=== PATIENT | male | born 1990 | race Caucasian/White ===

== ENCOUNTER 2017-10-01 01:57 | Emergency (ER) | payer MEDICAID, SELFPAY ==
[2017-10-01 01:58] VITALS: BP 151/93; PULSE 111; RESP 16; O2SAT 100; BMI 36.6
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
[2017-10-01] MEDS: Haloperidol 5 MG Tablet PO (02:24)
[2017-10-01] MEDS: LORazepam 1 MG Tablet 2 MG PO (02:24)
[2017-10-01 02:51] LABS: Absolute Lymphocyte Count 1.53 X10^3/ul (0.83-4.51); Basophil# 0.02 X10^3/uL; Basophil% 0.2 % (0-1); Eosinophils% 1.2 % (0-5); Hematocrit 43.8 % (40-54); Hemoglobin 14.4 g/dl (13.0-16.5); Lymphocyte # 1.53 X10^3/ul (4.0); Lymphocyte % 18.3 % (19-41); Mean Corp Hgb Conc 32.9 g/gl (32-36); Mean Corpuscular Hgb 28.9 pg (27.0-32.0); Mean Corpuscular Volume 87.8 fL (80-94); Mean Platelet Vol. 10.2 fl (6.2-12.0); Monocyte# 0.73 X10^3/uL; Monocyte% 8.7 % (0-10); Neutrophil # 5.98 X10^3/uL (2.7-7.7); Neutrophil % 71.5 % (47-70); Platelet Count 244 K/mm3 (150-450); RBC Distribution Width SD 41.6 fl (35.1-43.9); Red Blood Count 4.99 M/mm3 (4.6-6.2); White Blood Count 8.4 K/mm3 (4.4-11.0)
[2017-10-01 02:52] LABS: Differential Indicated SCAN CRITERIA MET; POSITIVE COUNT NO; POSITIVE DIFFERENTIAL NO; POSITIVE MORPHOLOGY YES
[2017-10-01 03:05] LABS: Amphetamine Urine VISTA NEGATIVE (<1000 ng/mL); Barbiturate Urine VISTA NEGATIVE (< 200 ng/mL); Benzodiazepine Urine VISTA NEGATIVE (< 200 ng/mL); Cocaine Urine VISTA NEGATIVE (< 300 ng/mL); Ecstacy Urine VISTA NEGATIVE (< 500 ng/mL); Methadone Urine VISTA NEGATIVE (< 300 ng/mL); PCP Urine VISTA NEGATIVE (< 25 ng/mL); THC Urine VISTA POSITIVE (< 50 ng/mL); Vista UDS pH Range 6
[2017-10-01 03:06] LABS: Anion Gap 13 (5-15); BUN 5 mg/dL (7-18); Calcium,Total 8.9 mg/dL (8.5-10.1); Chloride 103 mmol/L (98-107); Creatinine, Serum 0.83 mg/dL (0.70-1.30); EST Glomerular Filtration Rate 118 mL/min (>60); Est Glom Filt Rate - Afr Amer 142 mL/min (>60); Estimated Creatinine Clearance 138.04 ml/min; Glucose 92 mg/dL (74-106); Potassium 2.6 mmol/L (3.5-5.1); Sodium Level 140 mmol/L (136-145)
--- NOTE | 2017-10-01 03:06 | ED.RN ---
LAB CALLS WITH CRITICAL RESULT, POTASSIUM 2.6, DR. TINOCO MADE AWARE.
--- NOTE | 2017-10-01 03:07 | EKG12_ITS ---
Test Reason : Blood Pressure : / mmHG Vent. Rate : 101 BPM Atrial Rate : 101 BPM P-R Int : 154 ms QRS Dur : 106 ms QT Int : 368 ms P-R-T Axes : 036 003 036 degrees QTc Int : 477 ms Sinus tachycardia Otherwise normal ECG Confirmed by BERTIN GUZMÁN, ANN ([id number]), society editor RADHA ARCHER ([id number]) on 10/07/2017 2:53:32 PM Referred By: DWAINE Confirmed By:ANN DENTON MD
[2017-10-01 03:13] LABS: Alcohol, Blood (Medical)-Serum < 3.0 mg/dL
--- NOTE | 2017-10-01 04:28 | ED.RN ---
PT UNABLE TO TAKE POTASSIUM AT THIS TIME. PT IS LETHARGIC AND WILL NOT DRINK. PER DR TINOCO, HOLD UNTIL PT IS AWAKE.
[2017-10-01 04:29] VITALS: RESP 16
[2017-10-01 05:00] VITALS: RESP 16
[2017-10-01 06:00] VITALS: RESP 18
[2017-10-01 06:55] VITALS: PULSE 110; RESP 16; TEMP 36.4; O2SAT 98
[2017-10-01 07:15] VITALS: BP 151/90; PULSE 110; RESP 16; TEMP 36.4; O2SAT 98
== END 2017-10-01 09:49 ==
PROVIDERS: Emergency Provider Emergency Medicine; Family Provider Internal Medicine; PCP Internal Medicine
DX: F20.0 Paranoid schizophrenia (principal); E87.6 Hypokalemia
CPT/HCPCS: 80048; 80307; 80320; 85025; 93005; 99285; G0480

== ENCOUNTER 2018-11-04 13:39 | Emergency (ER) | payer MEDICAID, SELFPAY ==
[2018-11-04 13:42] VITALS: BP 141/93; PULSE 120; RESP 18; TEMP 36.8; O2SAT 98; BMI 31.3
--- NOTE | 2018-11-04 14:03 | ED.RN ---
socks, head phones, coat, jeans, boots, gold necklace (currently still on pt), sweat shirt, sunglasses
--- NOTE | 2018-11-04 14:18 | ED.RN ---
Pt pink slipped by [employer]. Much encouragement required to get pt to change out of clothing. He was cooperative but resistant. Was given three gowns per request. Pt does have his headphones with him. States he is listening to calming music. He was permitted to keep headphones with the understanding if he does not remain cooperative they will be removed.
--- NOTE | 2018-11-04 14:18 | CM.ED ---
SOCIAL WORK NOTE DISCUSSED CASE WITH PHYSICIAN WHO REPORTS CRISIS TO EVAL ONCE PT IS MEDICALLY CLEARED. FRITZ MURRAY, UNDERWRITING SUPPORT MANAGER, SQL SSRS DEVELOPER.
--- NOTE | 2018-11-04 14:24 | ED.RN ---
mother at bedside.
[2018-11-04] MEDS: Naproxen 500 MG Tablet PO (14:29)
[2018-11-04] MEDS: Gabapentin 300 MG Capsule PO (14:30)
--- NOTE | 2018-11-04 14:56 | ED.RN ---
PT HAS BEEN COOPERATIVE WITH PROVIDING AN URINE SAMPLE AND BLOOD DRAW.
[2018-11-04 14:59] LABS: Absolute Lymphocyte Count 1.11 X10^3/ul (0.83-4.51); Absolute Neutrophil Count 11.3 X10^3/uL (2.0-7.7); Basophil# 0.02 X10^3/uL; Basophil% 0.2 % (0-1); Eosinophil# 0.03 X10^3/uL; Eosinophils% 0.2 % (0-5); Hematocrit 45.1 % (40-54); Hemoglobin 14.9 g/dl (13.0-16.5); Lymphocyte # 1.11 X10^3/ul (4.0); Lymphocyte % 8.5 % (19-41); Mean Corpuscular Volume 93.8 fL (80-94); Mean Platelet Vol. 9.8 fl (6.2-12.0); Monocyte% 4.6 % (0-10); Neutrophil # 11.27 X10^3/uL (2.7-7.7); Neutrophil % 86.3 % (47-70); Platelet Count 267 K/mm3 (150-450); RBC Distribution Width CV 12.8 % (11.6-14.6); RBC Distribution Width SD 43.8 fl (35.1-43.9); Red Blood Count 4.81 M/mm3 (4.6-6.2); White Blood Count 13.1 K/mm3 (4.4-11.0)
[2018-11-04 15:01] LABS: POSITIVE COUNT NO; POSITIVE DIFFERENTIAL NO; POSITIVE MORPHOLOGY NO
[2018-11-04 15:08] LABS: Amphetamine Urine VISTA NEGATIVE (<1000 ng/mL); Barbiturate Urine VISTA NEGATIVE (< 200 ng/mL); Benzodiazepine Urine VISTA NEGATIVE (< 200 ng/mL); Cocaine Urine VISTA NEGATIVE (< 300 ng/mL); Ecstacy Urine VISTA NEGATIVE (< 500 ng/mL); Methadone Urine VISTA NEGATIVE (< 300 ng/mL); PCP Urine VISTA NEGATIVE (< 25 ng/mL); THC Urine VISTA POSITIVE (< 50 ng/mL); Vista UDS pH Range 5
[2018-11-04 15:14] LABS: ALB/GLOB Ratio 1.7 RATIO (0.9-2.4); AST(SGOT) 18 U/L (15-37); Alanine Aminotransfer ALT/SGPT 23 U/L (16-61); Albumin, Serum 4.5 g/dL (3.2-5.0); Alkaline Phosphatase 76 U/L (45-117); Anion Gap 7 (5-15); BUN 10 mg/dL (7-18); BUN/Creat Ratio 7.9 RATIO (10-20); Calcium,Total 8.7 mg/dL (8.5-10.1); Chloride 108 mmol/L (98-107); Creatinine, Serum 1.27 mg/dL (0.70-1.30); EST Glomerular Filtration Rate 72 mL/min (>60); Est Glom Filt Rate - Afr Amer 87 mL/min (>60); Estimated Creatinine Clearance 95.05 ml/min; Globulin 2.7 g/dL (2.2-4.2); Glucose 78 mg/dL (74-106); Potassium 3.5 mmol/L (3.5-5.1); Protein, Total 7.2 g/dL (6.4-8.2); Sodium Level 140 mmol/L (136-145)
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
--- NOTE | 2018-11-04 15:30 | NURSING ---
CALLED CRISIS, LEFT MESSAGE WITH SOMEONE TO LET THEM KNOW
[2018-11-04 15:48] VITALS: BP 137/86; PULSE 84; RESP 14; O2SAT 96
--- NOTE | 2018-11-04 16:51 | ED.RN ---
called dietary for meal tray
--- NOTE | 2018-11-04 16:51 | NURSING ---
ODILON, CRISIS, CALLED. SHE'S ON HER WAY
--- NOTE | 2018-11-04 17:00 | NURSING ---
ODILON, CRISIS, HERE
--- NOTE | 2018-11-04 17:07 | ED.RN ---
crisis at bedside with pt.
[2018-11-04 18:05] VITALS: PULSE 81; RESP 14
--- NOTE | 2018-11-04 18:34 | ED.RN ---
mother is leaving, left number for crisis.
--- NOTE | 2018-11-04 18:36 | ED.RN ---
MOTHER OF THIS PT CLARISA DUCKWORTH GAVE ME HER CONTACT INFORMATION AND REQUESTED WE CALL HER WHEN CRISIS HAS AN ACCEPTING HOSPITAL. [phone].
[2018-11-04 19:39] VITALS: BP 137/82; PULSE 82; RESP 18; O2SAT 96
[2018-11-04 20:26] VITALS: BP 128/84; PULSE 84; RESP 14; O2SAT 98
--- NOTE | 2018-11-04 21:01 | ED.RN ---
Per Pooja, Mom took all clothing home. PT has headphones and glasses.
== END 2018-11-04 21:00 ==
LOC: ED 14:23
PROVIDERS: Emergency Provider Emergency Medicine; Family Provider Internal Medicine; PCP Internal Medicine
DX: F20.0 Paranoid schizophrenia (principal)
CPT/HCPCS: 36415; 80053; 80307; 80320; 85025; 99284; G0480

== ENCOUNTER 2018-12-04 12:28 | Emergency (ER) | payer MEDICAID, SELFPAY ==
[2018-12-04] VITALS (8 sets, daily range): BP systolic 104–133; BP diastolic 82–87; PULSE 96–110; RESP 14–18; TEMP 36.8–37.3; O2SAT 95–98; BMI 27.1
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
--- NOTE | 2018-12-04 13:02 | EKG12_ITS ---
Test Reason : MENTAL HEALTH Blood Pressure : / mmHG Vent. Rate : 081 BPM Atrial Rate : 081 BPM P-R Int : 154 ms QRS Dur : 110 ms QT Int : 374 ms P-R-T Axes : 064 007 042 degrees QTc Int : 434 ms Normal sinus rhythm with sinus arrhythmia Normal ECG Confirmed by BERTIN GUZMÁN, ANN ([id number]), editorial director HETAL BANUELOS ([id number]) on 12/08/2018 1:22:08 PM Referred By: KELLE Confirmed By:ANN DENTON MD
--- NOTE | 2018-12-04 13:05 | CM.ED ---
SOCIAL WORK CASE DISCUSSED WITH DR. NINA. PATIENT NOT TALKING TO STAFF. THIS WORKER TO ATTEMPT SOCIAL SERVICE ASSESSMENT. FRITZ MURRAY, FUNERAL LOCATION MANAGER, PRINCIPAL STATISTICAL SCIENTIST.
--- NOTE | 2018-12-04 13:06 | PCA ---
GOT [facility]LD EKG
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
[2018-12-04 13:53] LABS: Absolute Lymphocyte Count 1.75 X10^3/ul (0.83-4.51); Absolute Neutrophil Count 4.9 X10^3/uL (2.0-7.7); Anion Gap 7 (5-15); BUN 7 mg/dL (7-18); BUN/Creat Ratio 7.2 RATIO (10-20); Basophil# 0.03 X10^3/uL; Basophil% 0.4 % (0-1); Chloride 105 mmol/L (98-107); Creatinine, Serum 0.97 mg/dL (0.70-1.30); EST Glomerular Filtration Rate 98 mL/min (>60); Eosinophils% 2.7 % (0-5); Est Glom Filt Rate - Afr Amer 118 mL/min (>60); Estimated Creatinine Clearance 124.44 ml/min; Glucose 89 mg/dL (74-106); Hematocrit 46.3 % (40-54); Hemoglobin 15.6 g/dl (13.0-16.5); Lymphocyte # 1.75 X10^3/ul (4.0); Lymphocyte % 23.5 % (19-41); Mean Corp Hgb Conc 33.7 g/gl (32-36); Mean Corpuscular Volume 91.9 fL (80-94); Mean Platelet Vol. 10.9 fl (6.2-12.0); Monocyte# 0.56 X10^3/uL; Monocyte% 7.5 % (0-10); Neutrophil # 4.89 X10^3/uL (2.7-7.7); Neutrophil % 65.8 % (47-70); Platelet Count 247 K/mm3 (150-450); Potassium 3.2 mmol/L (3.5-5.1); RBC Distribution Width CV 12.4 % (11.6-14.6); RBC Distribution Width SD 41.5 fl (35.1-43.9); Red Blood Count 5.04 M/mm3 (4.6-6.2); Sodium Level 141 mmol/L (136-145); White Blood Count 7.4 K/mm3 (4.4-11.0)
[2018-12-04 13:56] LABS: POSITIVE COUNT NO; POSITIVE DIFFERENTIAL NO; POSITIVE MORPHOLOGY NO
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
[2018-12-04 14:38] LABS: Red Blood Cells-Urine 0 SEEN /hpf (0-5)
[2018-12-04 14:41] LABS: Color, Urine Yellow (Yellow); Glucose, Dipstick Normal (Normal); Leukocyte Esterase-Dipstick 25 /ul (Negative); Nitrite-Dipstick Negative (Negative); Occult Blood-Urine Negative /ul (Negative); Protein-Dipstick 30 mg/dl (Negative); Specific Gravity, Urine 1.025 (1.002-1.030); Urine Clarity Clear (Clear); Urine Urobilinogen 1 mg/dl (Normal)
[2018-12-04 14:46] LABS: Ketone-Dipstick 150 mg/dl (Negative); Urine Bilirubin Dipstick 1 mg/dL (Negative)
[2018-12-04 14:49] LABS: Alcohol, Blood (Medical)-Serum < 3.0 mg/dL
[2018-12-04 14:50] LABS: White Blood Cells 0-5 SEEN /hpf (0-5)
[2018-12-04 14:51] LABS: Bacteria 1+ /hpf (None Seen); Mucous, Urine 3+ /hpf (<or=2+); Squamous Epithelial Cells - UA 0-5 SEEN /hpf (0-5)
[2018-12-04 14:57] LABS: Amphetamine Urine VISTA NEGATIVE (<1000 ng/mL); Barbiturate Urine VISTA NEGATIVE (< 200 ng/mL); Benzodiazepine Urine VISTA NEGATIVE (< 200 ng/mL); Cocaine Urine VISTA NEGATIVE (< 300 ng/mL); Ecstacy Urine VISTA NEGATIVE (< 500 ng/mL); Methadone Urine VISTA NEGATIVE (< 300 ng/mL); PCP Urine VISTA NEGATIVE (< 25 ng/mL); THC Urine VISTA POSITIVE (< 50 ng/mL); Vista UDS pH Range 6
--- NOTE | 2018-12-04 15:49 | ED.RN ---
road cleaner informed pt's mother that crisis would not be here to talk with pt until 5pm. Mother requested to go talk with her son. This RN asked pt if he would mind if his mother could come talk with him. Pt replies, oh no. Pt's mother made yung.
--- NOTE | 2018-12-04 17:07 | CM.ED ---
SOCIAL WORK RECEIVED CALL FROM GABRIEL WITH CRISIS. PER GHAZALA RIOS TO BE OVER TO ASSESS PATIENT SHORTLY. WILL UPDATE STAFF. FRITZ MURRAY, LAY OUT INSPECTOR, STABBER.
--- NOTE | 2018-12-04 19:24 | CM.ED ---
SOCIAL WORK GHAZALA FROM CRISIS HERE AND EVALUATED PATIENT AND DISCUSSED WITH PATIENT'S MOTHER. PER GHAZALA, REFERRAL TO BE MADE TO [facility] FOR INPATIENT PSYCH NEED. UPDATED NURSING STAFF. WILL FOLLOW AND ASSIST NEEDED. FRITZ MURRAY, NATIONAL ACCOUNTS RECRUITER, RISK MANAGER.
--- NOTE | 2018-12-04 22:19 | ED.RN ---
PT ACCEPTED AT [facility], ATTEMPTED TO GET TRANSPORT, CALLED SEVERAL COMPANIES, IWONA LERMA GAVE THE EARLIEST ETA OF 07
[2018-12-05] VITALS (7 sets, daily range): BP systolic 120–127; BP diastolic 60–85; PULSE 75–78; RESP 16–18; O2SAT 97
--- NOTE | 2018-12-05 06:45 | ED.RN ---
PT HAS BEEN AWAKE ALL NIGHT.HAVE OFFERRED THE PT FOOD AND DRINKS AND HE HAS REFUSED.PT POLITE.
== END 2018-12-05 08:08 ==
PROVIDERS: Emergency Provider Emergency Medicine; Family Provider Internal Medicine; PCP Internal Medicine
DX: F20.9 Schizophrenia, unspecified (principal); F12.90 Cannabis use, unspecified, uncomplicated
CPT/HCPCS: 80048; 80307; 80320; 81001; 85025; 93005; 99283; G0480

== ENCOUNTER → 2019-05-20 14:53 | Outpatient (CLI) | payer MEDICAID, SELFPAY ==
[2018-12-04 12:31] VITALS: BMI 27.1
--- NOTE | 2019-05-20 14:56 | CT_ITS ---
STUDY: CT ABDOMEN AND PELVIS WITH CONTRAST REASON FOR EXAM: Male, 28 years old. Diarrhea and cramping RADIATION DOSAGE (If Supplied By Facility): DLP = ( 1369.08 ) mGycm TECHNIQUE: Transaxial images were obtained from the dome of the diaphragm to the symphysis pubis with oral contrast. 100CC ml of Readi-CAT and amp; 100mL Isovue-300 contrast was administered. Sagittal and coronal images were reconstructed. Individualized dose optimization techniques were used for this CT. COMPARISON: None. FINDINGS: The visualized lung bases are clear. The visualized portions of the heart and pericardium are within normal limits. There are no calcified gallstones present. The liver is within normal limits. There are no suspicious hepatic lesions. The spleen is normal in size. The pancreas is within normal limits. The adrenal glands are within normal limits. There are no obstructing renal stones. There is no hydronephrosis. There are no focal renal lesions. Normal visualized stomach. There is no bowel obstruction or inflammation. The appendix is not visualized, but there are no findings to suggest acute appendicitis. The aorta is normal in caliber. There is no abdominal or pelvic free air, free fluid, fluid collection or lymphadenopathy. There are no destructive osseous lesions. CT/Abdomen/Pelvis WITH Contrast IMPRESSION: No acute abdominal or pelvic pathology. Electronically Signed: James Olmedo, at 16:07 EDT Tel , Service support ,
== END ==
PROVIDERS: Family Provider Family Medicine; PCP Family Medicine; Referring Provider Family Medicine; Visit Provider Family Medicine
DX: R19.7 Diarrhea, unspecified (principal)
CPT/HCPCS: 74177; Q9967

== ENCOUNTER → 2020-03-08 09:30 | Outpatient (CLI) | payer MEDICARE, MEDICAID, SELFPAY ==
[2018-12-04 12:31] VITALS: BMI 27.1
[2020-03-08 12:00] LABS: Erythrocyte Sedimentation Rate 12 mm/hr (0-15)
[2020-03-08 12:10] LABS: Absolute Lymphocyte Count 1.93 X10^3/uL (0.83-4.51); Absolute Neutrophil Count 5.6 X10^3/uL (2.0-7.7); Basophil# 0.03 X10^3/uL; Basophil% 0.4 % (0-1); Eosinophil# 0.17 X10^3/uL; Eosinophils% 2.1 % (0-5); Hematocrit 45.9 % (40-54); Hemoglobin 14.6 g/dL (13.0-16.5); Lymphocyte # 1.93 X10^3/ul (4.0); Lymphocyte % 23.4 % (19-41); Mean Corp Hgb Conc 31.8 g/dL (32-36); Mean Corpuscular Hgb 29.7 pg (27.0-32.0); Mean Corpuscular Volume 93.3 fL (80-94); Mean Platelet Vol. 10.1 fl (6.2-12.0); Monocyte# 0.56 X10^3/uL; Monocyte% 6.8 % (0-10); NRBC Flagged by Analyzer 0 % (0-5); Neutrophil # 5.55 X10^3/uL (2.7-7.7); Neutrophil % 67.1 % (47-70); Platelet Count 299 K/mm3 (150-450); RBC Distribution Width CV 12.7 % (11.6-14.6); RBC Distribution Width SD 43.4 fl (35.1-43.9); Red Blood Count 4.92 M/mm3 (4.6-6.2); White Blood Count 8.3 K/mm3 (4.4-11.0)
[2020-03-08 12:12] LABS: Vitamin B12 425 pg/mL (211-911)
[2020-03-08 12:31] LABS: AST(SGOT) 13 U/L (15-37); Alanine Aminotransfer ALT/SGPT 29 U/L (16-61); Albumin, Serum 3.6 g/dL (3.2-5.0); Alkaline Phosphatase 107 U/L (45-117); Anion Gap 5 (5-15); BUN 8 mg/dL (7-18); BUN/Creat Ratio 8.5 RATIO (10-20); Calcium,Total 9.2 mg/dL (8.5-10.1); Chloride 106 mmol/L (98-107); Creatinine, Serum 0.94 mg/dL (0.70-1.30); EST Glomerular Filtration Rate 100 mL/min (>60); Est Glom Filt Rate - Afr Amer 121 mL/min (>60); Ferritin 58 ng/mL (26-388); GGTP 24 U/L (15-85); Globulin 3.7 g/dL (2.2-4.2); Glucose 105 mg/dL (74-106); Lipase 75 U/L (73-393); Protein, Total 7.3 g/dL (6.4-8.2); Sodium Level 140 mmol/L (136-145); Thyroid Stim Hormone (TSH) 1.72 uIU/mL (0.358-3.74)
== END ==
PROVIDERS: PCP Family Medicine; Referring Provider Family Medicine; Visit Provider Family Medicine
DX: R10.13 Epigastric pain (principal); R53.83 Other fatigue
CPT/HCPCS: 36415; 80053; 82607; 82728; 82746; 82977; 83690; 84443; 85025; 85652

== ENCOUNTER → 2021-12-17 | Outpatient (CLI) | payer MEDICARE, MEDICAID, SELFPAY | END | disposition home or self-care (01) | LOC: MFPLAB 13:50 | PROVIDERS: PCP Family Medicine; Visit Provider Family Medicine | DX: J32.9 Chronic sinusitis, unspecified (principal) | CPT/HCPCS: 87070; 87077; 87186; 87205 ==

== ENCOUNTER → 2021-12-27 | Outpatient (CLI) | payer MEDICARE, MEDICAID, SELFPAY | END | disposition home or self-care (01) | PROVIDERS: PCP Family Medicine; Referring Provider Family Medicine; Visit Provider Family Medicine | DX: R19.7 Diarrhea, unspecified (principal) | CPT/HCPCS: 87177; 87209; 87506 ==

== ENCOUNTER 2021-12-31 01:53 | Emergency (ER) | payer MEDICARE, MEDICAID, SELFPAY ==
[2021-12-31 01:56] VITALS: BP 132/104; PULSE 119; RESP 26; TEMP 37.2; O2SAT 98; BMI 34.0
--- NOTE | 2021-12-31 02:21 | EX.ED.DYSGE1 ---
HPI History of Present Illness Chief Complaint: Nausea/Vomiting Informant: patient Narrative Narrative: Patient presents with nausea vomiting that he states is from increased secretions. He has been dealing with this for about a month. He states his mother took a trip to [place]. When she came back she was tired and had no other symptoms. However, ever since then he has had problems with increased secretions causing nausea and vomiting. He was tested for what sounds like H. pylori. He was treated with antibiotics for this. But it sounds like he is also been on 2 other courses of antibiotics since this all started. His last antibiotics were 3 days ago. Thorazine, hydroxyzine, and Benadryl. He has actually been taking these at the same time. He is also on what sounds like a prednisone burst or a short taper. He comes in saying he had increased secretions with vomiting at 1:00 this morning. He is not getting abdominal pain. He is not getting diarrhea. Patient states if he even walks into the house of his mother he gets instantly increased secretions and vomiting. He states it is because he is highly reactive to all bacteria's and allergens. He states he was tested for allergies and had the most high to all of them. Nothing seems to really help his symptoms. He has never been given meds for nausea or specifically it sounds like. PFSH PFSH Medical History no medical history Home Medications escitalopram oxalate 20 mg PO DAILY 12/31/21 [History Last Taken Unknown] ondansetron 4 mg PO Q8H PRN #10 tab 12/31/21 [Rx Last Taken Unknown] paliperidone 3 mg PO DAILY 12/31/21 [History Last Taken Unknown] Allergy/AdvReac Type Severity Reaction Status Date / Time Sulfa (Sulfonamide Allergy Unknown Verified 12/31/21 01:54 Antibiotics) sulfisoxazole Allergy Hives Verified 12/31/21 01:54 [From Gantrisin] Surgical History no surgical history Social History Smoking Status: Never smoker ROS ROS ED Constitutional Constitutional ED: Denies fever(s) Eyes Eyes: Denies blurry vision ENT ENT ED: Reports other Details: Increased oral secretions which he states because the nausea. But no nasal discharge. ; Denies rhinorrhea Cardiovascular Cardiovascular: Denies chest pain or palpitations Respiratory/Chest Respiratory/Chest: Denies cough or dyspnea Gastrointestinal Gastrointestinal: Reports nausea and vomiting; Denies abdominal pain or diarrhea Genitourinary Genitourinary ED: Denies dysuria or hematuria Musculoskeletal Musculoskeletal: Denies myalgias Integumentary Denies rash Neurologic Neurologic: Denies headache(s) Psychiatric Psychiatric: Reports anxiety and depression Endocrine Endocrinology: Denies polydipsia or polyuria Allergic/Immunologic Allergic/Immunologic ED: Denies urticaria EXAM Physical Exam Const Vital Signs: 12/31/21 01:56 12/31/21 04:11 Temperature 98.9 F Temperature Source Oral Pulse Rate 119 H 82 Respiratory Rate 26 H 20 H Blood Pressure 132/104 H 137/90 H Blood Pressure Mean 113 Pulse Ox 98 94 Oxygen Delivery Method Room Air Positive well nourished and well developed General Appearance ED: well developed and NAD; Negative for cyanotic or diaphoretic HEENT Reports moist mucous membranes Negative for trauma Eyes General Eye ED: Negative for pale conjunctiva or scleral icterus Neck no JVD Chest Wall inspection of chest normal Resp normal respiratory effort and clear to auscultation bilaterally Cardio regular rate, regular rhythm and no murmurs GI normal to inspection, nondistended, normoactive bowel sounds, non-tender and non-distended Palpation: soft Back/Spine no CVA tenderness Neuro Sensorium / Orientation: alert Psych Psych Narrative: Patient seems very anxious. He tells a story with a bit of pressured speech. This is likely due to frustration and upset that this going on. I also talked to him about taking cetirizine, hydroxyzine, and Benadryl all at the same time. He states he did this trying to dry up his secretions because nothing helps. I explained that this might be taken for the right reasons but taking all of these may cause him to be very anxious nervous and have nausea and vomiting also. I am just concerned that this patient has 3 courses of antibiotics, multiple antihistamines, steroids all contributing to the anxiety component that I think he is also having. Skin no rashes or lesions noted MDM MDM MDM Narrative Medical decision making narrative: Patient's blood work showed a high white count. This is likely due to a combination of demargination as well as this being on a steroid burst right now. He is not having fevers. No coughing. He has increased secretions but no sign of sinus infections. He is not having chest pain. He denies hematemesis. He states his abdomen hurts sometimes but its not hurting now. His electrolytes show mildly low potassium but this should self correct. Creatinine was minimally elevated but he was given IV fluids. Liver function test showed no acute process. Patient's recheck. He is feeling much better. He is not nauseated anymore. We had a long talk about his symptoms. I think some of his symptoms are supratentorial. I think he has quite a bit of anxiety. He does have a history of schizophrenia. He is concerned about germs in the house. But he is not suicidal or homicidal. He is taking care of himself. I have no indication to pink slip the patient at this point. I do believe that his psychiatric illness is playing a big part of his complaints. However, this does not rise to the level which I can mandate an evaluation and he does not feel that he needs that. He was encouraged to come back if he wants more help. He may also be having some allergic symptoms. We again discussed and not tripling up on his antihistamines. I will get him some Zofran to take as a as needed nausea. He will follow-up with his physician. Lab Data Attestation: I reviewed the patient's lab results. Labs: Laboratory Results - last 24 hr 12/31/21 12/31/21 02:00 02:00 WBC 19.7 H RBC 4.94 Hgb 14.9 Hct 44.5 MCV 90.1 MCH 30.2 MCHC 33.5 RDW Std Deviation 40.7 RDW Coeff of Rohith 12.4 Plt Count 374 MPV 9.4 Immature Gran % (Auto) 0.400 Neut % (Auto) 77.9 H Lymph % (Auto) 13.0 L Garza % (Auto) 8.6 Eos % (Auto) 0.0 Baso % (Auto) 0.1 Absolute Neuts (auto) 15.3 H Absolute Lymphs (auto) 2.55 Nucleated RBC % 0 Differential Comment SCANNED Diff Path Review May foll Platelet Estimate ADEQUATE Sodium 139 Potassium 3.1 L Chloride 100 Carbon Dioxide 30.0 Anion Gap 9 BUN 10 Creatinine 1.31 H Estim Creat Clear Calc 89.68 Est GFR (MDRD) Af Amer 82 Est GFR (MDRD) Non-Af 68 BUN/Creatinine Ratio 7.6 L Glucose 137 H Calcium 8.8 Total Bilirubin 0.90 AST 12 L ALT 21 Alkaline Phosphatase 103 Total Protein 7.2 Albumin 4.1 Globulin 3.1 Albumin/Globulin Ratio 1.3 Discharge Plan Triage Chief Complaint: Nausea/Vomiting ED Provider: James Camargo Dx/Rx/DC Orders Clinical Impression: Nausea & vomiting, Hx of schizophrenia Instructions: ED Vomiting (Adult) Prescriptions: New ondansetron 4 mg tablet,disintegrating 4 mg PO Q8H PRN (Reason: nausea and vomiting) Qty: 10 RF: 0 No Action escitalopram oxalate 20 mg tablet 20 mg PO DAILY RF: 0 paliperidone 3 mg tablet extended release 24hr 3 mg PO DAILY RF: 0 Primary Care Provider: Yovani Erickson Referrals: Yovani Erickson MD [Primary Care Provider] - As soon as possible Disposition Disposition: Home, Self Care Discharge Date/Time: 12/31/21 04:12
[2021-12-31 02:26] LABS: Absolute Lymphocyte Count 2.55 X10^3/uL (0.83-4.51); Absolute Neutrophil Count 15.3 X10^3/uL (2.0-7.7); Basophil# 0.02 X10^3/uL; Basophil% 0.1 % (0-1); Hematocrit 44.5 % (40-54); Hemoglobin 14.9 g/dL (13.0-16.5); Lymphocyte # 2.55 X10^3/ul (0.83-4.51); Mean Corp Hgb Conc 33.5 g/dL (32-36); Mean Corpuscular Hgb 30.2 pg (27.0-32.0); Mean Corpuscular Volume 90.1 fL (80-94); Mean Platelet Vol. 9.4 fl (6.2-12.0); Monocyte# 1.69 X10^3/uL; Monocyte% 8.6 % (0-10); NRBC Flagged by Analyzer 0 % (0-5); Neutrophil # 15.33 X10^3/uL (2.7-7.7); Neutrophil % 77.9 % (47-70); POSITIVE DIFFERENTIAL YES; Platelet Count 374 K/mm3 (150-450); RBC Distribution Width CV 12.4 % (11.6-14.6); RBC Distribution Width SD 40.7 fl (35.1-43.9); Red Blood Count 4.94 M/mm3 (4.6-6.2); White Blood Count 19.7 K/mm3 (4.4-11.0)
[2021-12-31 02:27] LABS: Differential Indicated SCAN CRITERIA MET
[2021-12-31] MEDS: 0.9% Normal Saline 1,000 ML 1000 ML IV (02:28)
[2021-12-31] MEDS: Ondansetron 4 MG/2 ML Vial IV (02:28)
[2021-12-31 02:43] LABS: ALB/GLOB Ratio 1.3 RATIO (0.9-2.4); AST(SGOT) 12 U/L (15-37); Alanine Aminotransfer ALT/SGPT 21 U/L (16-61); Albumin, Serum 4.1 g/dL (3.2-5.0); Alkaline Phosphatase 103 U/L (45-117); Anion Gap 9 (5-15); BUN 10 mg/dL (7-18); BUN/Creat Ratio 7.6 RATIO (10-20); Calcium,Total 8.8 mg/dL (8.5-10.1); Chloride 100 mmol/L (98-107); Creatinine, Serum 1.31 mg/dL (0.70-1.30); EST Glomerular Filtration Rate 68 mL/min (>60); Est Glom Filt Rate - Afr Amer 82 mL/min (>60); Estimated Creatinine Clearance 89.68 ml/min; Globulin 3.1 g/dL (2.2-4.2); Glucose 137 mg/dL (74-106); Potassium 3.1 mmol/L (3.5-5.1); Protein, Total 7.2 g/dL (6.4-8.2); Sodium Level 139 mmol/L (136-145)
[2021-12-31 02:44] LABS: Differential Comment SCANNED; Platelet Estimate ADEQUATE (ADEQ)
[2021-12-31 04:11] VITALS: BP 137/90; PULSE 82; RESP 20; O2SAT 94
[2022-01-01 11:52] LABS: Pathologist Review Reviewed
== END 2021-12-31 04:12 | disposition home or self-care (01) ==
PROVIDERS: Emergency Provider Emergency Medicine; PCP Family Medicine; Visit Provider Emergency Medicine
DX: R11.2 Nausea with vomiting, unspecified (principal); F20.9 Schizophrenia, unspecified; Z79.899 Other long term (current) drug therapy; F41.9 Anxiety disorder, unspecified
CPT/HCPCS: 80053; 85025; 96361; 96374; 99282; A4216; J2405

== ENCOUNTER 2022-01-30 14:46 | Emergency (ER) | payer MEDICARE, MEDICAID, SELFPAY ==
[2022-01-30 14:47] VITALS: BP 130/102; PULSE 124; RESP 16; TEMP 36.1; O2SAT 98; BMI 32.4
--- NOTE | 2022-01-30 15:37 | EDS_ITS ---
HPI History of Present Illness Chief Complaint: Cough Informant: patient Narrative Narrative: Patient pending with continued concerning symptoms for the past 2 months. He states started when he mother returned from [place] 2 months ago she had slight headache fatigue, stating he immediately started having symptoms. He saw his PCP initially due to sore throat he had a culture reporting a certain bacteria that was treated with Levaquin for 5 days he got better however symptoms returned again. He will get nauseated with spit up. He was seen in the ED a month ago due to the symptoms and evaluated. He was given Zofran. He has been taking antihistamines due to secretions. He followed up with the office with his physicians partner 2 days ago was restarted on Levaquin on day 2 currently. However states currently about feels like he is in his lungs. He denies fevers. He is requesting a stronger allergy medicine. He is requesting COVID testing. He states his symptoms do improve when he leaves the house. Reported sensitive to a lot of allergens. Patient does have history of schizophrenia. Reviewing records from his visit concerns for supratentorial issues. He was doing multiple antihistamines at that time was told to decrease it due to possibly causing increased symptoms. Prior similar symptoms: Yes PFSH PFSH Home Medications escitalopram oxalate 20 mg tablet 20 mg PO DAILY 12/31/21 [History Last Taken Unknown] ondansetron 4 mg disintegrating tablet 4 mg PO Q8H PRN nausea and vomiting #10 tabs 12/31/21 [Rx Last Taken Unknown] paliperidone 3 mg tablet,extended release 24 hr 3 mg PO DAILY 12/31/21 [History Last Taken Unknown] montelukast 10 mg tablet (Singulair) 10 mg PO DAILY #14 tabs 01/30/22 [Rx Last Taken Unknown] ondansetron 4 mg disintegrating tablet 4 mg PO Q6H PRN nausea and vomiting #10 tabs 01/30/22 [Rx Last Taken Unknown] Allergy/AdvReac Type Severity Reaction Status Date / Time Sulfa (Sulfonamide Allergy Unknown Verified 01/30/22 14:47 Antibiotics) sulfisoxazole Allergy Hives Verified 01/30/22 14:47 [From Gantrisin] Social History Smoking Status: Never smoker ROS ROS ED Constitutional Constitutional ED: Denies chills, fever(s) or sweats Eyes Eyes: Denies change in vision ENT ENT ED: Reports sore throat; Denies dysphagia Cardiovascular Cardiovascular: Denies chest pain, leg edema, palpitations or racing heartbeat Respiratory/Chest Respiratory/Chest: Reports cough; Denies dyspnea or dyspnea on exertion Gastrointestinal Gastrointestinal: Reports nausea; Denies abdominal pain, diarrhea or vomiting Genitourinary Genitourinary ED: Denies dysuria, hematuria or urinary frequency Musculoskeletal Musculoskeletal: Denies back pain, extremity pain or neck pain Integumentary Denies rash or wounds Neurologic Neurologic: Denies headache(s), paresthesias or weakness EXAM Physical Exam Const Vital Signs: 01/30/22 14:47 Temperature 97.0 F L Temperature Source Temporal Pulse Rate 124 H Respiratory Rate 16 Blood Pressure 130/102 H Blood Pressure Mean 111 Pulse Ox 98 Oxygen Delivery Method Room Air Positive well nourished and well developed Constitutional Narrative: Anxious, nontoxic General Appearance ED: well developed HEENT Reports moist mucous membranes HEENT Narrative: Minimal posterior pharyngeal erythema, no exudates. Tonsils 1+ symmetric uvula midline, no trismus. No stridor. normocephalic and atraumatic Eyes PERRL, EOMs intact bilaterally and conjunctivae normal General Eye ED: Yes normal appearance of both eyes Neck no lymphadenopathy and supple General: Negative for tenderness Chest Wall Chest: Negative for tenderness Resp normal respiratory effort and normal air movement Effort and Inspection: symmetric chest movement; Negative for respiratory distress Cardio regular rhythm and no murmurs Rate: tachycardic Peripheral Pulses: pulses 2+ throughout GI normal to inspection, nondistended, normoactive bowel sounds and non-tender Palpation: Negative for guarding or rebound tenderness present Back/Spine no CVA tenderness and no thoracic nor lumbar tenderness Extremity normal to inspection General Extremety ED: Negative for edema or tenderness General Extremity: Negative for edema Neuro oriented x3 and no sensory deficits noted Sensorium / Orientation: awake and alert Skin no rashes or lesions noted and no wounds MDM MDM MDM Narrative Medical decision making narrative: Patient very anxious on exam he is tachycardic likely secondary to have reports nausea and vomiting. There is minimal posterior pharyngeal erythema. Currently on Levaquin. Due to his reported symptoms I will check basic labs, give IV fluids Zofran. We will check a chest x-ray, COVID testing obtained for further rule out. Do agree that this could be supratentorium, he reports symptoms im proved when he leaves the house. Discussed the possibility of environmental issue and not a medical issue. Will reevaluate after work-up. Patient labs all stable. COVID-negative. Chest x-ray 1 view reviewed by myself and read by radiology shows no acute process. He is reassured. Singulair for 2 weeks along with refill for Zofran. Discussed potential environmental causes. He will look into this. He will follow-up as an outpatient. All questions answered. Lab Data Attestation: I reviewed the patient's lab results. Labs: Laboratory Results - last 24 hr 01/30/22 01/30/22 15:45 15:45 WBC 11.8 H RBC 5.28 Hgb 15.7 Hct 49.8 MCV 94.3 H MCH 29.7 MCHC 31.5 L RDW Std Deviation 42.8 RDW Coeff of Rohith 12.4 Plt Count 345 MPV 9.9 Immature Gran % (Auto) 0.400 Neut % (Auto) 89.3 H Lymph % (Auto) 7.3 L [place] % (Auto) 2.7 Eos % (Auto) 0.1 Baso % (Auto) 0.2 Absolute Neuts (auto) 10.6 H Absolute Lymphs (auto) 0.87 Nucleated RBC % 0 Differential Comment Sodium 137 Potassium 3.6 Chloride 106 Carbon Dioxide 20.0 L Anion Gap 11 BUN 8 Creatinine 1.15 Estim Creat Clear Calc 102.15 Est GFR (MDRD) Af Amer 95 Est GFR (MDRD) Non-Af 79 BUN/Creatinine Ratio 7.0 L Glucose 109 H Calcium 9.2 Radiography Diagnostic Testing: Clinical Impression(s) from Imaging Studies Chest X-Ray 01/30/22 16:05 IMPRESSION: Normal x-ray examination of the chest. Electronically Signed: Wally Galvez MD at 16:19 EDT , Discharge Plan Triage Chief Complaint: Cough ED Provider: Jhony Orozco Dx/Rx/DC Orders Clinical Impression: Bronchitis, Nausea & vomiting Instructions: ED Bronchitis, No Antibiotic (Adult), ED Vomiting (Adult) Prescriptions: New ondansetron 4 mg tablet,disintegrating 4 mg PO Q6H PRN (Reason: nausea and vomiting) Qty: 10 0RF montelukast [Singulair] 10 mg tablet 10 mg PO DAILY Qty: 14 0RF No Action escitalopram oxalate 20 mg tablet 20 mg PO DAILY paliperidone 3 mg tablet extended release 24hr 3 mg PO DAILY ondansetron 4 mg tablet,disintegrating 4 mg PO Q8H PRN (Reason: nausea and vomiting) Qty: 10 0RF Primary Care Provider: Yovani Erickson Referrals: Yovani Erickson MD [Primary Care Provider] - 1 Week Activity Restrictions/Additional Instructions: Finish your antibiotic use medicines as prescribed. COVID-negative chest x-ray negative. Labs are stable. Have your house inspected for further evaluation due to having symptoms only when in the house. Follow-up with your doctor. Disposition Disposition: Home, Self Care Discharge Date/Time: 01/30/22 16:57
[2022-01-30] MEDS: Ondansetron 4 MG/2 ML Vial IV (15:51)
[2022-01-30] MEDS: 0.9% Normal Saline 1,000 ML 1000 ML IV (15:51)
[2022-01-30 16:01] LABS: Absolute Lymphocyte Count 0.87 X10^3/uL (0.83-4.51); Absolute Neutrophil Count 10.6 X10^3/uL (2.0-7.7); Basophil# 0.02 X10^3/uL; Basophil% 0.2 % (0-1); Eosinophil# 0.01 X10^3/uL; Eosinophils% 0.1 % (0-5); Hematocrit 49.8 % (40-54); Hemoglobin 15.7 g/dL (13.0-16.5); Lymphocyte # 0.87 X10^3/ul (0.83-4.51); Lymphocyte % 7.3 % (19-41); Mean Corp Hgb Conc 31.5 g/dL (32-36); Mean Corpuscular Hgb 29.7 pg (27.0-32.0); Mean Corpuscular Volume 94.3 fL (80-94); Mean Platelet Vol. 9.9 fl (6.2-12.0); Monocyte# 0.32 X10^3/uL; Monocyte% 2.7 % (0-10); NRBC Flagged by Analyzer 0 % (0-5); Neutrophil # 10.57 X10^3/uL (2.7-7.7); Neutrophil % 89.3 % (47-70); POSITIVE COUNT YES; Platelet Count 345 K/mm3 (150-450); RBC Distribution Width CV 12.4 % (11.6-14.6); RBC Distribution Width SD 42.8 fl (35.1-43.9); Red Blood Count 5.28 M/mm3 (4.6-6.2); White Blood Count 11.8 K/mm3 (4.4-11.0)
[2022-01-30 16:04] LABS: Differential Indicated SCAN CRITERIA MET
--- NOTE | 2022-01-30 16:05 | RAD_ITS ---
STUDY: X-RAY CHEST REASON FOR EXAM: Male, 31 years old. cough TECHNIQUE: Single AP portable view of the chest. COMPARISON: 04/24/2012 FINDINGS: The lungs are clear and expanded. There is no demonstrated pleural abnormality. Normal size heart. Normal mediastinum and jaems. Normal visualized pulmonary arteries. Normal visualized aortic arch and descending thoracic aorta. Normal visualized thoracic spine. Normal visualized ribs, clavicles, and shoulders. There is no demonstrated abnormality of the visualized soft tissue structures of the upper abdomen. RAD/Chest 1 View (Portable) IMPRESSION: Normal x-ray examination of the chest. Electronically Signed: Wally Galvez MD at 16:19 EDT ,
[2022-01-30 16:16] LABS: Anion Gap 11 (5-15); BUN 8 mg/dL (7-18); Calcium,Total 9.2 mg/dL (8.5-10.1); Chloride 106 mmol/L (98-107); Creatinine, Serum 1.15 mg/dL (0.70-1.30); EST Glomerular Filtration Rate 79 mL/min (>60); Est Glom Filt Rate - Afr Amer 95 mL/min (>60); Estimated Creatinine Clearance 102.15 ml/min; Glucose 109 mg/dL (74-106); Potassium 3.6 mmol/L (3.5-5.1); Sodium Level 137 mmol/L (136-145)
== END 2022-01-30 16:57 | disposition home or self-care (01) ==
PROVIDERS: Emergency Provider Emergency Medicine; PCP Family Medicine; Visit Provider Emergency Medicine
DX: J40 Bronchitis, not specified as acute or chronic (principal); F20.9 Schizophrenia, unspecified; Z79.899 Other long term (current) drug therapy; R11.2 Nausea with vomiting, unspecified
CPT/HCPCS: 71045; 80048; 85025; 87811; 96361; 96374; 99284; J7030; A4216; J2405

== ENCOUNTER 2022-05-29 20:47 | Emergency (ER) | payer MEDICARE, MEDICAID, SELFPAY ==
[2022-05-29 20:52] VITALS: BP 129/75; PULSE 122; RESP 18; O2SAT 99
[2022-05-29 20:56] VITALS: TEMP 37.3; BMI 33.0
--- NOTE | 2022-05-29 21:09 | EKG12_ITS ---
Test Reason : [facility] [place] Blood Pressure : / mmHG Vent. Rate : 104 BPM Atrial Rate : 104 BPM P-R Int : 168 ms QRS Dur : 098 ms QT Int : 338 ms P-R-T Axes : 039 -08 043 degrees QTc Int : 444 ms Sinus tachycardia Otherwise normal ECG Confirmed by FITZ GUZMÁN, ABHIJEET ([id number]), social media editor HETAL BANUELOS ([id number]) on 05/31/2022 2:13:11 P M Referred By: Confirmed By:MANJINDER BYRNES MD
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
[2022-05-29 21:54] LABS: Absolute Neutrophil Count 8.4 X10^3/uL (2.0-7.7); Basophil# 0.04 X10^3/uL; Basophil% 0.3 % (0-1); Eosinophils% 0.8 % (0-5); Hematocrit 44.7 % (40-54); Hemoglobin 14.8 g/dL (13.0-16.5); Lymphocyte % 21.2 % (19-41); Mean Corp Hgb Conc 33.1 g/dL (32-36); Mean Corpuscular Hgb 30.4 pg (27.0-32.0); Mean Corpuscular Volume 91.8 fL (80-94); Mean Platelet Vol. 9.6 fl (6.2-12.0); Monocyte# 0.68 X10^3/uL; Monocyte% 5.8 % (0-10); NRBC Flagged by Analyzer 0 % (0-5); Neutrophil # 8.43 X10^3/uL (2.7-7.7); Neutrophil % 71.5 % (47-70); Platelet Count 336 K/mm3 (150-450); RBC Distribution Width CV 12.6 % (11.6-14.6); RBC Distribution Width SD 42.7 fl (35.1-43.9); Red Blood Count 4.87 M/mm3 (4.6-6.2); White Blood Count 11.8 K/mm3 (4.4-11.0)
[2022-05-29 22:10] LABS: Amphetamine Urine VISTA NEGATIVE (<1000 ng/mL); Barbiturate Urine VISTA NEGATIVE (< 200 ng/mL); Benzodiazepine Urine VISTA NEGATIVE (< 200 ng/mL); Cocaine Urine VISTA NEGATIVE (< 300 ng/mL); Ecstacy Urine VISTA NEGATIVE (< 500 ng/mL); Methadone Urine VISTA NEGATIVE (< 300 ng/mL); PCP Urine VISTA NEGATIVE (< 25 ng/mL); THC Urine VISTA POSITIVE (< 50 ng/mL); Vista UDS pH Range 5
[2022-05-29 22:20] LABS: Alcohol, Blood (Medical)-Serum < 3.0 mg/dL
[2022-05-29 22:24] LABS: ALB/GLOB Ratio 1.1 RATIO (0.9-2.4); AST(SGOT) 17 U/L (15-37); Alanine Aminotransfer ALT/SGPT 23 U/L (16-61); Alkaline Phosphatase 94 U/L (45-117); Anion Gap 6 (5-15); BUN 14 mg/dL (7-18); BUN/Creat Ratio 11.9 RATIO (10-20); Calcium,Total 9.1 mg/dL (8.5-10.1); Chloride 110 mmol/L (98-107); Creatinine, Serum 1.18 mg/dL (0.70-1.30); EST Glomerular Filtration Rate 76 mL/min (>60); Est Glom Filt Rate - Afr Amer 92 mL/min (>60); Estimated Creatinine Clearance 99.56 ml/min; Globulin 3.6 g/dL (2.2-4.2); Glucose 94 mg/dL (74-106); Potassium 3.7 mmol/L (3.5-5.1); Protein, Total 7.6 g/dL (6.4-8.2); Sodium Level 142 mmol/L (136-145)
[2022-05-29] MEDS: Gabapentin 300 MG Capsule PO (23:08)
[2022-05-30 01:52] VITALS: RESP 15
[2022-05-30] MEDS: Ibuprofen 600 MG Tablet PO (02:29)
[2022-05-30 04:00] VITALS: RESP 15
--- NOTE | 2022-05-30 05:34 | NURSING ---
CRISIS SAID HE IS REFERRED TO [facility], [facility], AND [facility]. [facility] CALLED AND REQUESTED COVID AND MEDICAL CLEAR. I FAXED OVER THAT INFO TO THE NUMBER THEY GAVE US.
[2022-05-30 06:00] VITALS: RESP 15; O2SAT 97
--- NOTE | 2022-05-30 06:17 | ED.RN ---
NURSE REPORT CALLED TO MARTHA REA BENNINGTON, . REPORTS INTAKE WILL CALL [facility] BACK WITH ROOM INFO
[2022-05-30 06:18] VITALS: BP 129/75; PULSE 92; RESP 18; TEMP 36.6; O2SAT 99
--- NOTE | 2022-05-30 07:04 | NURSING ---
called squad, eta is 830 am
[2022-05-30 08:38] VITALS: BP 138/81; PULSE 90; RESP 15; O2SAT 100
== END 2022-05-30 09:25 ==
PROVIDERS: Emergency Provider Emergency Medicine; PCP Family Medicine; Visit Provider Emergency Medicine
DX: F20.0 Paranoid schizophrenia (principal); F17.210 Nicotine dependence, cigarettes, uncomplicated; R45.6 Violent behavior; Z91.14 Patient's other noncompliance with medication regimen
CPT/HCPCS: 80048; 80053; 80307; 82077; 85025; 87811; 93005; 99285

== ENCOUNTER 2023-04-13 04:06 | Emergency (ER) | payer MEDICARE, MEDICAID, SELFPAY ==
[2023-04-13 04:07] VITALS: BP 143/98; PULSE 79; RESP 15; TEMP 36.4; O2SAT 98; BMI 36.1
--- NOTE | 2023-04-13 04:15 | ED.VIS.GI ---
HPI HPI - GI History of Present Illness Chief Complaint: Nausea/Vomiting Narrative Narrative: 32-year-old male presenting with nausea and vomiting. He states he ate [employer] last night and afterwards started to have nausea and vomiting. He vomited multiple times at home. He also started having diarrhea. Denies fever or chills. Patient states he was not drinking alcohol. Nobody else is sick around him. He did state that he saw some small amount of blood in his emesis and his last vomiting episode. He is on any blood thinners. PFSH [facility] Medical History Asthma Migraines Home Medications escitalopram oxalate 20 mg tablet 20 mg PO DAILY 12/31/21 [History Last Taken Unknown] ondansetron 4 mg disintegrating tablet 4 mg PO Q8H PRN nausea and vomiting #10 tabs 12/31/21 [Rx Last Taken Unknown] paliperidone 3 mg tablet,extended release 24 hr 3 mg PO DAILY 12/31/21 [History Last Taken Unknown] montelukast 10 mg tablet (Singulair) 10 mg PO DAILY #14 tabs 01/30/22 [Rx Last Taken Unknown] ondansetron 4 mg disintegrating tablet 4 mg PO Q6H PRN nausea and vomiting #10 tabs 01/30/22 [Rx Last Taken Unknown] ondansetron 4 mg disintegrating tablet 4 mg PO Q8H PRN PRN Nausea #14 tabs 04/13/23 [Rx Last Taken Unknown] promethazine 25 mg tablet 25 mg PO TID PRN nausea and vomiting #14 tabs 04/13/23 [Rx Last Taken Unknown] Allergy/AdvReac Type Severity Reaction Status Date / Time Sulfa (Sulfonamide Allergy Unknown Verified 04/13/23 04:12 Antibiotics) sulfisoxazole Allergy Hives Verified 04/13/23 04:12 [From Gantrisin] Social History Smoking Status: Current every day smoker tobacco type: cigarettes ROS ROS ED Constitutional Constitutional ED: Denies chills, fever(s) or sweats Eyes Eyes: Denies blurry vision or change in vision ENT ENT ED: Denies ear pain or sore throat Cardiovascular Cardiovascular: Denies chest pain, palpitations or racing heartbeat Respiratory/Chest Respiratory/Chest: Denies cough, dyspnea or sputum Gastrointestinal Gastrointestinal: Reports diarrhea, nausea and vomiting; Denies abdominal pain or constipation Genitourinary Genitourinary ED: Denies dysuria, hematuria or urinary frequency Musculoskeletal Musculoskeletal: Denies arthralgias, myalgias or neck pain Integumentary Denies abscess, Abrasions or rash Neurologic Neurologic: Denies headache(s), paresthesias or weakness Psychiatric Psychiatric: Denies anxiety, depression, suicidal ideation or suicidal thoughts Endocrine Endocrinology: Denies polydipsia or polyuria EXAM Physical Exam Const Vital Signs: 04/13/23 04:07 04/13/23 07:01 Temperature 97.6 F L Temperature Source Axillary Pulse Rate 79 66 Respiratory Rate 15 15 Blood Pressure 143/98 H 104/59 L Blood Pressure Mean 113 74 Pulse Ox 98 100 Oxygen Delivery Method Room Air Room Air Positive well nourished General Appearance ED: Negative for pallor HEENT Reports moist mucous membranes normocephalic and atraumatic Resp normal respiratory effort Cardio regular rate and regular rhythm GI GI Narrative: Mild epigastric tenderness Neuro CN's II-XII intact bilaterally Sensorium / Orientation: alert Psych mental status grossly normal Skin General Skin Exam: Negative for jaundice or pallor MDM MDM MDM Narrative Medical decision making narrative: Patient presenting with nausea/vomiting. He has some slight blood in his vomit which is likely due to a Ivonne-Moreno tear. Its not excessive. He only had it once while he was in the ER. He is on any blood thinners. Likely this is due to food poisoning since it happened after he ate [employer]. He is given 4 mg of oral Zofran. Will reevaluate. Continue to try to drink water even before the medication was given. He continually made him sick. He was given a dose of Phenergan IM and still continue to try to drink. I did have a conversation with him about letting his stomach rest and stop trying to drink so much water. At this point I added an IV and check some basic lab work. I gave him some IV Reglan and I will reevaluate him. Patient still complaining of nausea so he is given Tylenol. CBC shows a leukocytosis of 15.7. Hemoglobin and hematocrit are stable. Platelets are normal. Renal function and electrolytes within normal limits with exception of a potassium of 3.3. LFTs unremarkable. Lipase negative. I obtained CT of the abdomen pelvis which is negative. On reevaluation the patient still says he has some nausea. I offered to admit him to the hospital but he declines. I will give him Zofran and Phenergan for home. He is to drink small amounts of fluids at a time. He is counseled to keep a bland diet and advance as tolerated. Impression: 1. Food poisoning 2. Nausea/vomiting 3. Abdominal pain Lab Data Labs: Laboratory Results - last 24 hr 04/13/23 05:33 WBC 15.7 H RBC 5.04 Hgb 14.9 Hct 45.1 MCV 89.5 MCH 29.6 MCHC 33.0 RDW Std Deviation 42.0 RDW Coeff of Rohith 12.8 Plt Count 351 MPV 9.3 Immature Gran % (Auto) 0.400 Neut % (Auto) 82.3 H Lymph % (Auto) 11.2 L [place] % (Auto) 4.5 Eos % (Auto) 1.3 Baso % (Auto) 0.3 Absolute Neuts (auto) 12.9 H Absolute Lymphs (auto) 1.76 Nucleated RBC % 0 Sodium 141 Potassium 3.3 L Chloride 105 Carbon Dioxide 30.0 Anion Gap 6 BUN 8 Creatinine 0.97 Estim Creat Clear Calc 120.00 Est GFR (MDRD) Af Amer 115 Est GFR (MDRD) Non-Af 95 BUN/Creatinine Ratio 8.2 L Glucose 126 H Calcium 8.6 Total Bilirubin 0.40 Direct Bilirubin 0.14 AST 10 L ALT 18 Alkaline Phosphatase 95 Total Protein 7.1 Albumin 3.7 Globulin 3.4 Lipase 34 Radiography Diagnostic Testing: Clinical Impression(s) from Imaging Studies Abdomen/Pelvis CT 04/13/23 06:26 IMPRESSION: No acute findings in the abdomen or pelvis. Electronically Signed: Clayton Liu MD at 7:15 EDT , Discharge Plan Triage Chief Complaint: Nausea/Vomiting ED Provider: Gustavo Garcia Dx/Rx/DC Orders Instructions: ED Food Poisoning (Adult) Prescriptions: New ondansetron 4 mg tablet,disintegrating 4 mg PO Q8H PRN PRN (Reason: Nausea) Qty: 14 0RF promethazine 25 mg tablet 25 mg PO TID PRN (Reason: nausea and vomiting) Qty: 14 0RF No Action escitalopram oxalate 20 mg tablet 20 mg PO DAILY paliperidone 3 mg tablet extended release 24hr 3 mg PO DAILY ondansetron 4 mg tablet,disintegrating 4 mg PO Q8H PRN (Reason: nausea and vomiting) Qty: 10 0RF ondansetron 4 mg tablet,disintegrating 4 mg PO Q6H PRN (Reason: nausea and vomiting) Qty: 10 0RF montelukast [Singulair] 10 mg tablet 10 mg PO DAILY Qty: 14 0RF Primary Care Provider: Yovani Erickson Referrals: Yovani Erickson MD [Primary Care Provider] - Disposition Disposition: Home, Self Care
[2023-04-13] MEDS: Ondansetron ODT 4 MG Tablet PO (04:17)
[2023-04-13] MEDS: proMETHazine 25 MG/ML Syringe 12.5 MG IM (04:39)
[2023-04-13] MEDS: Metoclopramide 10 MG/2 ML Vial IV (05:33)
[2023-04-13] MEDS: 0.9% Normal Saline (1000mL) 1,000 ML 999 ML IV (05:35)
[2023-04-13 05:38] LABS: Absolute Lymphocyte Count 1.76 X10^3/uL (0.83-4.51); Absolute Neutrophil Count 12.9 X10^3/uL (2.0-7.7); Basophil# 0.05 X10^3/uL; Basophil% 0.3 % (0-1); Eosinophils% 1.3 % (0-5); Hematocrit 45.1 % (40-54); Hemoglobin 14.9 g/dL (13.0-16.5); Lymphocyte # 1.76 X10^3/ul (0.83-4.51); Lymphocyte % 11.2 % (19-41); Mean Corpuscular Hgb 29.6 pg (27.0-32.0); Mean Corpuscular Volume 89.5 fL (80-94); Mean Platelet Vol. 9.3 fl (6.2-12.0); Monocyte# 0.71 X10^3/uL; Monocyte% 4.5 % (0-10); NRBC Flagged by Analyzer 0 % (0-5); Neutrophil # 12.89 X10^3/uL (2.7-7.7); Neutrophil % 82.3 % (47-70); Platelet Count 351 K/mm3 (150-450); RBC Distribution Width CV 12.8 % (11.6-14.6); Red Blood Count 5.04 M/mm3 (4.6-6.2); White Blood Count 15.7 K/mm3 (4.4-11.0)
[2023-04-13 06:04] LABS: AST(SGOT) 10 U/L (15-37); Alanine Aminotransfer ALT/SGPT 18 U/L (16-61); Albumin, Serum 3.7 g/dL (3.2-5.0); Alkaline Phosphatase 95 U/L (45-117); Anion Gap 6 (5-15); BUN 8 mg/dL (7-18); BUN/Creat Ratio 8.2 RATIO (10-20); Bilirubin, Direct 0.14 mg/dL (0.00-0.30); Calcium,Total 8.6 mg/dL (8.5-10.1); Chloride 105 mmol/L (98-107); Creatinine, Serum 0.97 mg/dL (0.70-1.30); EST Glomerular Filtration Rate 95 mL/min (>60); Est Glom Filt Rate - Afr Amer 115 mL/min (>60); Globulin 3.4 g/dL (2.2-4.2); Glucose 126 mg/dL (74-106); Lipase 34 U/L (13-75); Potassium 3.3 mmol/L (3.5-5.1); Protein, Total 7.1 g/dL (6.4-8.2); Sodium Level 141 mmol/L (136-145)
--- NOTE | 2023-04-13 06:26 | CT_ITS ---
EXAM: CT ABDOMEN AND PELVIS WITH INTRAVENOUS CONTRAST CLINICAL INDICATION: abdominal pain with nausea and vomiting since last night abdominal pain with nausea and vomiting since last night TECHNIQUE: Helically acquired images were obtained of the abdomen and pelvis with intravenous contrast. This CT exam was performed using one or more of the following dose reduction techniques: automated exposure control, adjustment of the mA and/or kV according to patient size, and/or use of iterative reconstruction technique. CONTRAST: IV 100mL [id number]-370 RADIATION DOSE: CTDIvol = 15.27 mGy, DLP = 1388.94 mGy-cm COMPARISON: CT scan 05/20/2019. FINDINGS: LIMITATIONS: Exam is limited by respiratory motion. LOWER THORAX: Unremarkable. Lung bases are clear. No cardiomegaly. No significant pericardial effusion. ABDOMEN: LIVER: Unremarkable. Homogeneous. No focal mass. GALLBLADDER AND BILE DUCTS: Unremarkable. No calcified gallstones. No gallbladder distention or wall edema. No intra- or extrahepatic biliary ductal dilation. PANCREAS: Unremarkable. No focal cystic or solid mass. SPLEEN: Unremarkable. Normal size without focal cystic or solid mass. ADRENALS: Unremarkable. No nodules. KIDNEYS AND URETERS: Unremarkable. Normal renal size and position. No hydronephrosis. STOMACH AND BOWEL: Unremarkable. No stomach or bowel distention. No focal inflammatory change. PELVIS: APPENDIX: A normal-appearing appendix is seen on axial images 71-80. BLADDER: Unremarkable. REPRODUCTIVE: Unremarkable as visualized. No mass. ABDOMEN and PELVIS: INTRAPERITONEAL SPACE: Unremarkable. No ascites or other fluid collection. No free air. BONES/JOINTS: There are multilevel degenerative changes in the visualized spine. No suspicious lytic or blastic abnormality. SOFT TISSUES: Unremarkable. No discrete abdominal or pelvic wall hernia. VASCULATURE: Unremarkable. Abdominal aorta is non-dilated. LYMPH NODES: Unremarkable. No enlarged lymph nodes. CT/Abdomen/Pelvis W IV Cont ONLY IMPRESSION: No acute findings in the abdomen or pelvis. Electronically Signed: Clayton Liu MD at 7:15 EDT Reading Location ID and State: [facility] / [place] , Service support ,
[2023-04-13] MEDS: Haloperidol Lactate 5 MG/ML Vial 2 MG IV (06:59)
[2023-04-13 07:01] VITALS: BP 104/59; PULSE 66; RESP 15; O2SAT 100
== END 2023-04-13 07:28 | disposition home or self-care (01) ==
PROVIDERS: Emergency Provider Student in an Organized Health Care Education/Training Program; PCP Family Medicine; Visit Provider Student in an Organized Health Care Education/Training Program
DX: A05.9 Bacterial foodborne intoxication, unspecified (principal); F17.210 Nicotine dependence, cigarettes, uncomplicated; R11.2 Nausea with vomiting, unspecified; R10.9 Unspecified abdominal pain
CPT/HCPCS: 74177; 80048; 80076; 83690; 85025; 96361; 96372; 96374; 96375; 99283; J7030; Q9967; A4216

== ENCOUNTER 2024-01-08 12:21 | Emergency (ER) | payer MEDICARE, MEDICAID, SELFPAY ==
[2024-01-08 12:23] VITALS: BP 137/100; PULSE 81; RESP 14; TEMP 36.1; O2SAT 100; BMI 33.9
[2024-01-08 12:41] VITALS: BMI 34.2
--- NOTE | 2024-01-08 13:30 | EX.ED.DYSGE1 ---
HPI History of Present Illness Chief Complaint: Neuro S/Sx Narrative Narrative: 33-year-old male presenting with facial palsy on the left. He states it started over the last couple of days. He notes that he had a very bad headache before this all started and states he has a history of migraines. He states this was worse than a migraine and was all over his head. He states he laid in bed for 2 days and now he has a facial palsy. He states he thought he was having a medication side effect because his doctor was changing his Seroquel around. Patient denies numbness or tingling elsewhere. Has been able to use his arms and legs. Vision is unaffected. [facility] Medical History Schizophrenia Migraines Asthma Home Medications ?Medication ?Instructions ?Recorded ?Last Taken ?Type escitalopram oxalate 20 mg tablet 20 mg PO DAILY 12/31/21 Unknown History ondansetron 4 mg disintegrating 4 mg PO Q8H PRN nausea and 12/31/21 Unknown Rx tablet vomiting #10 tabs paliperidone 3 mg tablet,extended 3 mg PO DAILY 12/31/21 Unknown History release 24 hr montelukast 10 mg tablet 10 mg PO DAILY #14 tabs 01/30/22 Unknown Rx (Singulair) ondansetron 4 mg disintegrating 4 mg PO Q6H PRN nausea and 01/30/22 Unknown Rx tablet vomiting #10 tabs ondansetron 4 mg disintegrating 4 mg PO Q8H PRN PRN Nausea #14 tabs 04/13/23 Unknown Rx tablet promethazine 25 mg tablet 25 mg PO TID PRN nausea and 04/13/23 Unknown Rx vomiting #14 tabs prednisone 10 mg tablet 60 mg (6 x 10 mg) PO BID 7 days 01/08/24 Unknown Rx #84 tabs valacyclovir 1 gram tablet 1,000 mg PO Q8H #14 tabs 01/08/24 Unknown Rx Allergy/AdvReac Type Severity Reaction Status Date / Time Sulfa (Sulfonamide Allergy Unknown Verified 01/08/24 12:22 Antibiotics) sulfisoxazole (From Allergy Hives Verified 01/08/24 12:22 Gantrisin) Social History Smoking Status: Current every day smoker tobacco type: cigarettes ROS ROS ED Constitutional Constitutional ED: Denies chills, fever(s) or sweats Eyes Eyes: Denies blurry vision or change in vision ENT ENT ED: Denies ear pain or sore throat Cardiovascular Cardiovascular: Denies chest pain, palpitations or racing heartbeat Respiratory/Chest Respiratory/Chest: Denies cough, dyspnea or sputum Gastrointestinal Gastrointestinal: Denies abdominal pain, constipation, diarrhea, nausea or vomiting Genitourinary Genitourinary ED: Denies dysuria, hematuria or urinary frequency Musculoskeletal Musculoskeletal: Denies arthralgias, myalgias or neck pain Integumentary Denies abscess, Abrasions or rash Neurologic Neurologic: Reports headache(s) and other Details: Facial droop ; Denies paresthesias or weakness Psychiatric Psychiatric: Denies anxiety, depression, suicidal ideation or suicidal thoughts Endocrine Endocrinology: Denies polydipsia or polyuria EXAM Physical Exam Const Vital Signs: 01/08/24 12:23 Temperature 97 F L Temperature Source Temporal Pulse Rate 81 Respiratory Rate 14 Blood Pressure 137/100 H Blood Pressure Mean 112 Pulse Ox 100 Oxygen Delivery Method Room Air Positive well nourished HEENT Reports moist mucous membranes Eyes PERRL and EOMs intact bilaterally Chest Wall inspection of chest normal Resp normal respiratory effort and clear to auscultation bilaterally Auscultation: Negative for rales, rhonchi or wheezes Cardio regular rate and regular rhythm Extremity normal to inspection Neuro oriented x3 Neuro Narrative: Left-sided facial droop involving the left side of the mouth, left eye and does not spare the forehead. Sensorium / Orientation: alert Psych mental status grossly normal Skin no rashes or lesions noted MDM MDM MDM Narrative Medical decision making narrative: Patient presenting with headache which she states was worse than a migraine. He states that the headache has let up but now he has a facial droop. On examination he does have a Mark's palsy. We did get a CT of the brain today because of the headache history. This was negative for anything acute. Patient will be started on antivirals and prednisone. I also recommended that he keep his left eye well lubricated, and gently tape it close at night. Return precautions discussed. Impression: 1. Mark's palsy 2. Headache Radiography Diagnostic Testing: Clinical Impression(s) from Imaging Studies Brain CT 01/08/24 13:49 IMPRESSION: Normal unenhanced CT scan of the brain. Electronically Signed: Douglas Burns MD at 14:26 EDT , Discharge Plan Triage Chief Complaint: Neuro S/Sx ED Provider: Gustavo Garcia Dx/Rx/DC Orders Instructions: Self-Care for Headaches, ED Mark's Palsy Prescriptions: New valacyclovir 1 gram tablet 1,000 mg PO Q8H Qty: 14 0RF prednisone 10 mg tablet 60 mg PO BID 7 Days Qty: 84 0RF No Action escitalopram oxalate 20 mg tablet 20 mg PO DAILY paliperidone 3 mg tablet extended release 24hr 3 mg PO DAILY ondansetron 4 mg tablet,disintegrating 4 mg PO Q8H PRN (Reason: nausea and vomiting) Qty: 10 0RF ondansetron 4 mg tablet,disintegrating 4 mg PO Q6H PRN (Reason: nausea and vomiting) Qty: 10 0RF montelukast [Singulair] 10 mg tablet 10 mg PO DAILY Qty: 14 0RF ondansetron 4 mg tablet,disintegrating 4 mg PO Q8H PRN PRN (Reason: Nausea) Qty: 14 0RF promethazine 25 mg tablet 25 mg PO TID PRN (Reason: nausea and vomiting) Qty: 14 0RF Primary Care Provider: Yvoani Erickson Referrals: Yovani Erickson MD [Primary Care Provider] - Print Language: Nauruan Disposition Disposition: Home, Self Care
--- NOTE | 2024-01-08 13:49 | CT_ITS ---
STUDY: CT BRAIN WITHOUT CONTRAST REASON FOR EXAM: Male, 33 years old. FACIAL NUMBNESS. Mark''s palsy. RADIATION DOSAGE (If Supplied By Facility): CTDIvol = ( 44.99 ) mGy, DLP = ( 796.11 ) mGycm TECHNIQUE: Transaxial CT imaging of the brain was performed without administration of intravenous contrast material. Individualized dose optimization techniques were used for this CT. COMPARISON: No relevant priors. FINDINGS: Normal soft tissue structures. Normal calvarium. Normal size ventricles and extra-axial spaces for the patient''s age. Normal white matter tracts of the cerebral hemispheres. Normal basal ganglia and thalami. Normal brainstem. Normal cerebellum. There is no intracranial hemorrhage. There are no findings of an acute ischemic infarction. Normal visualized paranasal sinuses. CT/Brain/Head without Contrast IMPRESSION: Normal unenhanced CT scan of the brain. Electronically Signed: Douglas Burns MD at 14:26 EDT ,
[2024-01-08 14:22] VITALS: PULSE 79; RESP 16; O2SAT 98
== END 2024-01-08 15:21 | disposition home or self-care (01) ==
PROVIDERS: Emergency Provider Student in an Organized Health Care Education/Training Program; PCP Family Medicine; Visit Provider Student in an Organized Health Care Education/Training Program
DX: G51.0 Bell's palsy (principal); R51.9 Headache, unspecified; F17.210 Nicotine dependence, cigarettes, uncomplicated
CPT/HCPCS: 70450; 99282

== ENCOUNTER → 2024-02-03 | Outpatient (CLI) | payer MEDICARE, MEDICAID, SELFPAY ==
[2024-02-03 17:41] LABS: Hematocrit 37.8 % (40-54); Hemoglobin 11.9 g/dL (13.0-16.5); Mean Corp Hgb Conc 31.5 g/dL (32-36); Mean Corpuscular Hgb 29.8 pg (27.0-32.0); Mean Corpuscular Volume 94.7 fL (80-94); Mean Platelet Vol. 9.1 fl (6.2-12.0); Platelet Count 363 K/mm3 (150-450); RBC Distribution Width CV 13.2 % (11.6-14.6); RBC Distribution Width SD 45.7 fl (35.1-43.9); Red Blood Count 3.99 M/mm3 (4.6-6.2); White Blood Count 9.7 K/mm3 (4.4-11.0)
[2024-02-03 18:17] LABS: ALB/GLOB Ratio 0.6 RATIO (0.9-2.4); AST(SGOT) 13 U/L (15-37); Alanine Aminotransfer ALT/SGPT 15 U/L (16-61); Albumin, Serum 2.6 g/dL (3.2-5.0); Alkaline Phosphatase 84 U/L (45-117); Anion Gap 5 (5-15); BUN 6 mg/dL (7-18); BUN/Creat Ratio 5.8 RATIO (10-20); Calcium,Total 8.7 mg/dL (8.5-10.1); Chloride 106 mmol/L (98-107); Creatinine, Serum 1.04 mg/dL (0.70-1.30); EST Glomerular Filtration Rate 87 mL/min (>60); Est Glom Filt Rate - Afr Amer 106 mL/min (>60); Glucose 87 mg/dL (74-106); Potassium 4.3 mmol/L (3.5-5.1); Protein, Total 6.6 g/dL (6.4-8.2); Sodium Level 138 mmol/L (136-145)
[2024-02-06 17:07] LABS: Lyme IGG CIA Positive (Negative); Lyme IGM CIA Positive (Negative); Lyme Scn Total Ab w/Rflx Positive (Negative)
== END | disposition home or self-care (01) ==
LOC: MFPLAB 16:41
PROVIDERS: PCP Family Medicine; Visit Provider Family Medicine
DX: G51.0 Bell's palsy (principal)
CPT/HCPCS: 80053; 85027; 86618

== ENCOUNTER 2024-03-26 23:15 | Emergency (ER) | payer MEDICARE, MEDICAID, SELFPAY ==
[2024-03-26 23:15] VITALS: BP 151/79; PULSE 110; RESP 18; O2SAT 98
[2024-03-26 23:16] VITALS: BP 145/97; PULSE 112; RESP 18; TEMP 36.6; O2SAT 99; BMI 34.7
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
[2024-03-26 23:50] LABS: Absolute Lymphocyte Count 3.95 X10^3/uL (0.83-4.51); Absolute Neutrophil Count 7.7 X10^3/uL (2.0-7.7); Basophil# 0.08 X10^3/uL; Basophil% 0.6 % (0-1); Eosinophil# 0.44 X10^3/uL; Eosinophils% 3.3 % (0-5); Hematocrit 43.5 % (40-54); Hemoglobin 14.3 g/dL (13.0-16.5); Lymphocyte # 3.95 X10^3/ul (0.83-4.51); Lymphocyte % 29.3 % (19-41); Mean Corp Hgb Conc 32.9 g/dL (32-36); Mean Corpuscular Hgb 29.4 pg (27.0-32.0); Mean Corpuscular Volume 89.5 fL (80-94); Mean Platelet Vol. 9.2 fl (6.2-12.0); Monocyte# 1.25 X10^3/uL; Monocyte% 9.3 % (0-10); NRBC Flagged by Analyzer 0 % (0-5); Neutrophil # 7.69 X10^3/uL (2.7-7.7); Neutrophil % 57.1 % (47-70); Platelet Count 321 K/mm3 (150-450); RBC Distribution Width CV 13.2 % (11.6-14.6); RBC Distribution Width SD 43.3 fl (35.1-43.9); Red Blood Count 4.86 M/mm3 (4.6-6.2); White Blood Count 13.5 K/mm3 (4.4-11.0)
[2024-03-27 00:05] LABS: Anion Gap 6 (5-15); BUN 11 mg/dL (7-18); BUN/Creat Ratio 9.6 RATIO (10-20); Calcium,Total 8.3 mg/dL (8.5-10.1); Chloride 107 mmol/L (98-107); Creatinine, Serum 1.15 mg/dL (0.70-1.30); EST Glomerular Filtration Rate 78 mL/min (>60); Est Glom Filt Rate - Afr Amer 94 mL/min (>60); Estimated Creatinine Clearance 120.23 ml/min; Glucose 122 mg/dL (74-106); Potassium 3.4 mmol/L (3.5-5.1); Sodium Level 141 mmol/L (136-145)
[2024-03-27 00:16] LABS: Amphetamine Urine VISTA NEGATIVE (<1000 ng/mL); Barbiturate Urine VISTA NEGATIVE (< 200 ng/mL); Benzodiazepine Urine VISTA NEGATIVE (< 200 ng/mL); Cocaine Urine VISTA NEGATIVE (< 300 ng/mL); Ecstacy Urine VISTA POSITIVE (< 500 ng/mL); Methadone Urine VISTA NEGATIVE (< 300 ng/mL); PCP Urine VISTA NEGATIVE (< 25 ng/mL); THC Urine VISTA NEGATIVE (< 50 ng/mL); Vista UDS pH Range 6
--- NOTE | 2024-03-27 03:49 | ED.RN ---
CRISIS HAS REFERRED PT TO [facility]
[2024-03-27 07:21] VITALS: BP 149/82; PULSE 79; RESP 18; O2SAT 95
--- NOTE | 2024-03-27 09:13 | ED.RN ---
2 co2 cartridge and 3 lighters given to security. Multiple baggies of medications meclizine 6 tabs, allergy 12 tabs in appropriate packaging. Gabapentin 300mg 18 pills, caffeine pills 100 pills and multiple misc other pills. All but the pills in the bags except the meclizine and vera that was appropriately packaged was destroyed in the appropriate destroyer in the department.
--- NOTE | 2024-03-27 09:32 | NURSING ---
DE AIDAN, [address] [place]ARD NURSE TO NURSE [phone]
--- NOTE | 2024-03-27 09:41 | NURSING ---
CALLED [facility], ETA IS 30 MIN
--- NOTE | 2024-03-27 09:52 | NURSING ---
attempted to call nurse report to [phone] no answer.
[2024-03-27 09:55] VITALS: BP 145/101; PULSE 90; RESP 18; TEMP 36.6; O2SAT 99
--- NOTE | 2024-03-27 10:28 | ED.RN ---
attempted to call report left voicemail with ER number.
== END 2024-03-27 10:28 ==
PROVIDERS: Emergency Provider Emergency Medicine; PCP Family Medicine; Visit Provider Emergency Medicine
DX: F20.9 Schizophrenia, unspecified (principal); F17.210 Nicotine dependence, cigarettes, uncomplicated; Z79.899 Other long term (current) drug therapy
CPT/HCPCS: 80048; 80307; 82077; 85025; 93005; 99285

== ENCOUNTER 2024-04-25 20:43 | Emergency (ER) | payer MEDICARE, MEDICAID, SELFPAY ==
[2024-04-25 20:44] VITALS: BP 141/90; PULSE 109; RESP 18; TEMP 36.2; O2SAT 95
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
[2024-04-25 21:02] VITALS: BMI 33.8
[2024-04-25 21:43] VITALS: BP 157/105; PULSE 94; RESP 18; O2SAT 94
[2024-04-25 22:00] VITALS: BP 132/86; PULSE 120; RESP 18; O2SAT 94
[2024-04-25 22:11] LABS: Absolute Lymphocyte Count 3.12 X10^3/uL (0.83-4.51); Absolute Neutrophil Count 6.4 X10^3/uL (2.0-7.7); Basophil# 0.06 X10^3/uL; Basophil% 0.6 % (0-1); Eosinophil# 0.24 X10^3/uL; Eosinophils% 2.3 % (0-5); Hematocrit 39.3 % (40-54); Hemoglobin 12.6 g/dL (13.0-16.5); Lymphocyte # 3.12 X10^3/ul (0.83-4.51); Lymphocyte % 29.8 % (19-41); Mean Corp Hgb Conc 32.1 g/dL (32-36); Mean Corpuscular Hgb 29.5 pg (27.0-32.0); Mean Platelet Vol. 9.1 fl (6.2-12.0); Monocyte# 0.66 X10^3/uL; Monocyte% 6.3 % (0-10); NRBC Flagged by Analyzer 0 % (0-5); Neutrophil # 6.37 X10^3/uL (2.7-7.7); Neutrophil % 60.7 % (47-70); Platelet Count 267 K/mm3 (150-450); RBC Distribution Width CV 13.2 % (11.6-14.6); RBC Distribution Width SD 44.8 fl (35.1-43.9); Red Blood Count 4.27 M/mm3 (4.6-6.2); White Blood Count 10.5 K/mm3 (4.4-11.0)
--- NOTE | 2024-04-25 22:28 | ED.RN ---
This RN updated the patient's legal guardian on the patient's status. MD notified.
[2024-04-25 22:42] LABS: Anion Gap 6 (5-15); BUN 11 mg/dL (7-18); Calcium,Total 8.3 mg/dL (8.5-10.1); Chloride 102 mmol/L (98-107); EST Glomerular Filtration Rate 82 mL/min (>60); Est Glom Filt Rate - Afr Amer 99 mL/min (>60); Estimated Creatinine Clearance 124.08 ml/min; Glucose 118 mg/dL (74-106); Potassium 3.3 mmol/L (3.5-5.1); Sodium Level 136 mmol/L (136-145)
[2024-04-25 22:46] LABS: Amphetamine Urine VISTA NEGATIVE (<1000 ng/mL); Barbiturate Urine VISTA NEGATIVE (< 200 ng/mL); Benzodiazepine Urine VISTA NEGATIVE (< 200 ng/mL); Cocaine Urine VISTA NEGATIVE (< 300 ng/mL); Ecstacy Urine VISTA POSITIVE (< 500 ng/mL); Methadone Urine VISTA NEGATIVE (< 300 ng/mL); PCP Urine VISTA NEGATIVE (< 25 ng/mL); THC Urine VISTA POSITIVE (< 50 ng/mL); Vista UDS pH Range 5
[2024-04-25 23:00] VITALS: BP 109/93; PULSE 98; RESP 18; O2SAT 94
--- NOTE | 2024-04-25 23:02 | EDS_ITS ---
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 Onset/Context/Timing Onset: Days Context: Sudden Onset Conflict: - (Patient claims there is people at the back door and entered through the back door.) Timing: Continuous and Waxes and wanes Current Severity: Mild Maximum Severity: Moderate Worsened by: Situational factors and Alcohol intoxication Relieved by: Nothing Associated Symptoms Associated Symptoms - Psych: Positive for Depressed, Change in Eating, Change in sleeping, Paranoia, Visual Hallucinations and Auditory Hallucinations; Negative for Decreased Interest, Guilt, Decreased Concentration, Hopelessness, Suicidal Thoughts, Easily distracted, Grandiosity, Flight of Ideas, Increased activity, Pressured Speech, Agitated, Angry, Hostile, Threatening or Confusion Specific plan (suicidal thought): Not applicable Narrative Narrative: Patient is a 33-year-old male. He has history of schizophrenia. He resides at his mother's home. Apparently he is under the presumption that someone is trying to enter through the house.'s more than 1 person. He had a machete and bat to protect himself and the contents of the house. Patient reports compliance with his medication. Patient states he has been hospitalized in the past. He is not certain when he was last hospitalized. He was last seen for psychiatric disorder May 29, 2022. He was admitted to a psychiatric facility at that time. He was seen December 2021 for schizophrenia. He apparently was admitted at that time as well. Patient denies headache, visual, ocular auditory symptoms. Patient denies upper respiratory, cardiac symptoms. Patient Nuys abdominal pain, nausea, vomiting or diarrhea. Patient denies dysuria, frequency, urgency or hematuria. Prior similar symptoms: Yes Recent Illness/Hospitalization: No [facility] Medical History Schizophrenia Migraines Asthma Home Medications ?Medication ?Instructions ?Recorded ?Last Taken ?Type escitalopram oxalate 20 mg tablet 20 mg PO DAILY 12/31/21 Unknown History bupropion HCl 150 mg 24 hr tablet, 150 mg PO DAILY 04/25/24 Unknown History extended release divalproex 125 mg tablet,delayed 125 mg PO BID 04/25/24 Unknown History release gabapentin 100 mg capsule 100 mg PO DAILY 04/25/24 Unknown History gabapentin 300 mg capsule 300 mg PO 5X/DAY 04/25/24 Unknown History haloperidol 2 mg tablet 2 mg PO BID 04/25/24 Unknown History paliperidone palmitate 234 mg/1.5 234 mg IM X1 04/25/24 04/04/24 History mL intramuscular syringe (Invega Sustenna) risperidone 120 mg subcutaneous 120 mg subcut QMONTH 04/25/24 Unknown History extended release suspension syringe (Perseris) Allergy/AdvReac Type Severity Reaction Status Date / Time Sulfa (Sulfonamide Allergy Unknown Verified 04/25/24 20:44 Antibiotics) sulfisoxazole (From Allergy Hives Verified 04/25/24 20:44 Gantrisin) Social History (Updated 04/25/24 @ 23:[address] Tramaine Tovar MD) household members: family Smoking Status: Current every day smoker tobacco type: cigarettes ROS ROS ED Constitutional Constitutional ED: Denies chills, fever(s) or subjective Eyes Eyes: Denies blurry vision or change in vision ENT ENT ED: Denies ear pain or rhinorrhea Cardiovascular Cardiovascular: Denies chest pain, palpitations or racing heartbeat Respiratory/Chest Respiratory/Chest: Denies cough, dyspnea or dyspnea on exertion Gastrointestinal Gastrointestinal: Denies abdominal pain, diarrhea, nausea or vomiting Genitourinary Genitourinary ED: Denies dysuria, hematuria or urinary frequency Musculoskeletal Musculoskeletal: Denies arthralgias, back pain or myalgias Integumentary Denies rash Neurologic Neurologic: Denies headache(s), paresthesias or weakness Psychiatric Psychiatric: Denies anxiety, depression or suicidal ideation Endocrine Endocrinology: Denies polydipsia or polyphagia Hematologic/Lymphatic Hematologic/Lymphatic: Denies easy bleeding EXAM Physical Exam Const Vital Signs: 04/25/24 20:44 04/25/24 21:43 04/25/24 22:00 Temperature 97.2 F L Temperature Source Temporal Pulse Rate 109 H 94 120 H Respiratory Rate 18 18 18 Blood Pressure 141/90 H 157/105 H 132/86 H Blood Pressure Mean 107 122 101 Pulse Ox 95 94 94 Oxygen Delivery Method Room Air Room Air Room Air Positive well nourished, well developed and unkempt General Appearance ED: unkempt, well developed and NAD HEENT Reports TM's clear and moist mucous membranes normocephalic and atraumatic Tympanic Membrane ED: Yes TM's clear Eyes PERRL and EOMs intact bilaterally General Eye ED: Negative for pale conjunctiva or scleral icterus Neck no lymphadenopathy, supple and no JVD General: tenderness Resp normal respiratory effort and clear to auscultation bilaterally Cardio S1 normal heart sound, S2 normal heart sound and no murmurs Rate: regular rate Rhythm: regular rhythm GI non-tender Auscultation: normoactive bowel sounds Palpation: soft Back/Spine no CVA tenderness Extremity normal to inspection General Extremety ED: Negative for edema or tenderness General Extremity: Negative for edema Neuro oriented x3, CN's II-XII intact bilaterally, no sensory deficits noted and deep tendon reflexes 2+ bilaterally Valdo Coma Scale: document GCS findings Spontaneous Obeys Commands Oriented 15 Sensorium / Orientation: alert Motor Exam: strength 5/5 throughout Psych cooperative, activity/motor behavior normal, denies homicidal ideation and denies suicidal ideation; Negative for denies hallucinations Appearance: unkempt and disheveled Attitude: paranoid Activity / Motor Behavior: appropriate eye contact and psychomotor slowing Speech: minimal, soft and other Mumbling Mood & Affect: flat affect Thought Content: No suicidality, No homicidality, No phobia(s) and hallucination(s) Positive for auditory and visual Memory / Cognition: memory grossly intact Insight: limited Judgement: limited Skin Skin Narrative: No abnormality noted. MDM MDM MDM Narrative Medical decision making narrative: Patient is paranoid and has exacerbation of his schizophrenia. Will obtain appropriate workup to assess for any metabolic or infectious cause. Otherwise in my opinion patient would be best served if hospitalized at a psychiatric facility especially since he reports compliance with his medication. History & Record Review Additional record(s) reviewed:: Prior outpatient record, Prior ED visit and Prior labs Lab Data Attestation: I reviewed the patient's lab results. Lab results narrative: CBC reveals anemia, mild with normal indices. Electrolyte panel is normal. Talk screen was positive for cannabis which she admitted to amphetamines which may be due to the Lexapro since this can give a false positive. Labs: Laboratory Results - last 24 hr 04/25/24 21:45 WBC 10.5 RBC 4.27 L Hgb 12.6 L Hct 39.3 L MCV 92.0 MCH 29.5 MCHC 32.1 RDW Std Deviation 44.8 H RDW Coeff of Rohith 13.2 Plt Count 267 MPV 9.1 Immature Gran % (Auto) 0.300 Neut % (Auto) 60.7 Lymph % (Auto) 29.8 [place] % (Auto) 6.3 Eos % (Auto) 2.3 Baso % (Auto) 0.6 Absolute Neuts (auto) 6.4 Absolute Lymphs (auto) 3.12 Nucleated RBC % 0 Sodium 136 Potassium 3.3 L Chloride 102 Carbon Dioxide 28.0 Anion Gap 6 BUN 11 Creatinine 1.10 Estim Creat Clear Calc 124.08 Est GFR (MDRD) Af Amer 99 Est GFR (MDRD) Non-Af 82 BUN/Creatinine Ratio 10.0 Glucose 118 H Calcium 8.3 L Urine Opiates Screen NEGATIVE Urine Methadone Screen NEGATIVE Ur Barbiturates Screen NEGATIVE Ur Phencyclidine Scrn NEGATIVE Ur Amphetamines Screen NEGATIVE MDMA (Ecstasy) Screen POSITIVE H U Benzodiazepines Scrn NEGATIVE Urine Cocaine Screen NEGATIVE U Cannabinoids Screen POSITIVE H Ur Drug Screen Comment Ethyl Alcohol 5.0 Treatment and Re-Evaluation Narrative: Nurse was informed to call crisis at 2300. Discharge Plan Triage Chief Complaint: Mental Health ED Provider: Tramaine Tovar Dx/Rx/DC Orders Clinical Impression: Acute exacerbation of chronic schizophrenia, Acute paranoia, Cannabis use disorder, Elevated blood-pressure reading without diagnosis of hypertension, Tachycardia Prescriptions: No Action escitalopram oxalate 20 mg tablet 20 mg PO DAILY divalproex 125 mg tablet,delayed release (DR/EC) 125 mg PO BID Patient Comments: pt to start 05/03/2024 gabapentin 300 mg capsule 300 mg PO 5X/DAY gabapentin 100 mg capsule 100 mg PO DAILY haloperidol 2 mg tablet 2 mg PO BID bupropion HCl 150 mg tablet extended release 24 hr 150 mg PO DAILY Perseris 120 mg suspension,extended rel syring 120 mg subcut QMONTH Patient Comments: pt due to get 05/04/2024 Invega Sustenna 234 mg/1.5 mL syringe 234 mg IM X1 Primary Care Provider: Yovani Erickson Referrals: Yovani Erickson MD [Primary Care Provider] - Print Language: Vietnamese Disposition Disposition: Psychiatric Hospital or Unit Discharge Location: [facility] Discharge Date/Time: 04/26/24 09:20
[2024-04-25 23:08] VITALS: BP 109/93; PULSE 98; RESP 18; TEMP 36.3; O2SAT 94
[2024-04-26 07:08] VITALS: BP 125/77; PULSE 78; RESP 17; O2SAT 97
[2024-04-26 09:15] VITALS: BP 122/78; PULSE 81; RESP 18; TEMP 36.6; O2SAT 98
--- NOTE | 2024-04-26 09:19 | ED.RN ---
REPORT GIVEN TO SHANIQUA AT [facility]. PTS BELONGS SENT WITH MONICA
== END 2024-04-26 09:20 ==
LOC: ED 21:53
PROVIDERS: Emergency Provider Emergency Medicine; PCP Family Medicine; Visit Provider Emergency Medicine
DX: F20.0 Paranoid schizophrenia (principal); R03.0 Elevated blood-pressure reading, without diagnosis of hypertension; F17.210 Nicotine dependence, cigarettes, uncomplicated; F12.90 Cannabis use, unspecified, uncomplicated; R00.0 Tachycardia, unspecified; Z79.899 Other long term (current) drug therapy
CPT/HCPCS: 36415; 80048; 80307; 82077; 85025; 99283

== ENCOUNTER 2024-06-02 01:34 | Emergency (ER) | payer MEDICARE, MEDICAID, SELFPAY ==
[2024-06-02 01:36] VITALS: BP 147/97; PULSE 112; RESP 16; TEMP 36.9; O2SAT 97; BMI 35.6
[2024-06-02 02:31] LABS: Absolute Lymphocyte Count 2.89 X10^3/uL (0.83-4.51); Absolute Neutrophil Count 5.1 X10^3/uL (2.0-7.7); Basophil# 0.06 X10^3/uL; Basophil% 0.6 % (0-1); Eosinophil# 0.42 X10^3/uL; Eosinophils% 4.5 % (0-5); Hematocrit 39.2 % (40-54); Hemoglobin 12.7 g/dL (13.0-16.5); Lymphocyte # 2.89 X10^3/ul (0.83-4.51); Lymphocyte % 30.8 % (19-41); Mean Corp Hgb Conc 32.4 g/dL (32-36); Mean Corpuscular Hgb 29.7 pg (27.0-32.0); Mean Corpuscular Volume 91.8 fL (80-94); Monocyte# 0.85 X10^3/uL; Monocyte% 9.1 % (0-10); NRBC Flagged by Analyzer 0 % (0-5); Neutrophil # 5.13 X10^3/uL (2.7-7.7); Neutrophil % 54.7 % (47-70); Platelet Count 298 K/mm3 (150-450); RBC Distribution Width CV 13.6 % (11.6-14.6); RBC Distribution Width SD 46.2 fl (35.1-43.9); Red Blood Count 4.27 M/mm3 (4.6-6.2); White Blood Count 9.4 K/mm3 (4.4-11.0)
[2024-06-02 02:44] LABS: Alcohol, Blood (Medical)-Serum < 3.0 mg/dL
[2024-06-02 02:46] LABS: Anion Gap 6 (5-15); BUN 9 mg/dL (7-18); BUN/Creat Ratio 8.9 RATIO (10-20); Calcium,Total 8.3 mg/dL (8.5-10.1); Chloride 105 mmol/L (98-107); Creatinine, Serum 1.01 mg/dL (0.70-1.30); EST Glomerular Filtration Rate 90 mL/min (>60); Est Glom Filt Rate - Afr Amer 109 mL/min (>60); Glucose 121 mg/dL (74-106); Potassium 3.2 mmol/L (3.5-5.1); Sodium Level 139 mmol/L (136-145)
[2024-06-02 02:58] LABS: Bacteria 0 SEEN /hpf (None Seen); Mucous, Urine 0 SEEN /hpf (<or=2+); Red Blood Cells-Urine 0 SEEN /hpf (0-5); Squamous Epithelial Cells - UA 0 SEEN /hpf (0-5); White Blood Cells 0 SEEN /hpf (0-5)
[2024-06-02 03:02] LABS: Color, Urine Yellow (Yellow); Glucose, Dipstick Normal (Normal); Ketone-Dipstick Negative (Negative); Leukocyte Esterase-Dipstick Negative /ul (Negative); Nitrite-Dipstick Negative (Negative); Occult Blood-Urine Negative /ul (Negative); Protein-Dipstick Negative (Negative); Urine Bilirubin Dipstick Negative (Negative); Urine Clarity Clear (Clear); Urine Urobilinogen Normal (Normal); Urine pH 6.5 (5.0 - 8.0)
[2024-06-02 03:21] LABS: Amphetamine Urine VISTA NEGATIVE (<1000 ng/mL); Barbiturate Urine VISTA NEGATIVE (< 200 ng/mL); Benzodiazepine Urine VISTA NEGATIVE (< 200 ng/mL); Cocaine Urine VISTA NEGATIVE (< 300 ng/mL); Ecstacy Urine VISTA POSITIVE (< 500 ng/mL); Methadone Urine VISTA NEGATIVE (< 300 ng/mL); PCP Urine VISTA NEGATIVE (< 25 ng/mL); THC Urine VISTA NEGATIVE (< 50 ng/mL); Vista UDS pH Range 7
--- NOTE | 2024-06-02 03:21 | EX.ED.DYSGE1 ---
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 Police were called to his house this evening because he thought that there were people outside trying to break into his house. During this delusional event he also took a knife and threatened to harm members of his family who are staying in the same house. Based on this delusion with aggressive/threatening actions he was pink slipped by the lawn caretaker and brought to the hospital for evaluation. Upon arrival to the hospital the patient does admit to seeing people outside his house but states that he has done this in the past. He states that he has had to be admitted to a psychiatric hospital for similar event. He states that his been a few years since his last admission and he denies any homicidal or suicidal ideation alcohol use or illicit drug use at this time. The patient also denies any potential threat towards family members as documented by the police [facility] Medical History Schizophrenia Bipolar disorder Depression Anxiety Smoker Home Medications ?Medication ?Instructions ?Recorded ?Last Taken ?Type atomoxetine 25 mg capsule 25 mg PO DAILY 06/02/24 Unknown History atomoxetine 40 mg capsule PO 06/02/24 Unknown History benztropine 1 mg tablet 1 mg PO BID 06/02/24 Unknown History bupropion HCl 300 mg 24 hr tablet, 300 mg PO DAILY 06/02/24 Unknown History extended release divalproex 500 mg tablet,delayed 500 mg PO BID 06/02/24 Unknown History release escitalopram oxalate 20 mg tablet 20 mg PO DAILY 06/02/24 Unknown History gabapentin 300 mg capsule 300 mg PO DAILY PRN 06/02/24 Unknown History haloperidol 2 mg PO DAILY 06/02/24 Unknown History haloperidol 2 mg tablet 2 mg PO BID 06/02/24 Unknown History nabumetone 500 mg tablet 500 mg PO BID 06/02/24 Unknown History nicotine (polacrilex) 2 mg gum 2 mg PO Q2H PRN PRN nicotine 06/02/24 Unknown History cravings risperidone 120 mg subcutaneous 120 mg subcut 06/02/24 Unknown History extended release suspension syringe (Perseris) Allergy/AdvReac Type Severity Reaction Status Date / Time Sulfa (Sulfonamide AdvReac Intermediate Rash Verified 06/02/24 01:48 Antibiotics) Social History Smoking Status: Current every day smoker tobacco type: e-cigarettes ROS ROS ED Constitutional Constitutional ED: Denies chills or fever(s) Eyes Eyes: Denies blurry vision or change in vision ENT ENT ED: Denies sore throat Cardiovascular Cardiovascular: Denies chest pain Respiratory/Chest Respiratory/Chest: Denies cough or dyspnea Gastrointestinal Gastrointestinal: Denies abdominal pain, diarrhea, nausea or vomiting Genitourinary Genitourinary ED: Denies dysuria Musculoskeletal Musculoskeletal: Denies myalgias Integumentary Denies rash Neurologic Neurologic: Denies headache(s) Psychiatric Psychiatric: Denies suicidal ideation or suicidal thoughts Hematologic/Lymphatic Hematologic/Lymphatic: Denies easy bleeding or easy bruising EXAM Physical Exam Const Vital Signs: 06/02/24 01:36 06/02/24 03:35 Temperature 98.4 F Temperature Source Oral Pulse Rate 112 H 105 H Respiratory Rate 16 18 Blood Pressure 147/97 H 124/91 H Blood Pressure Mean 113 102 Pulse Ox 97 98 Oxygen Delivery Method Room Air Room Air Positive well nourished, well developed and obese General Appearance ED: well developed; Negative for pallor Nutritional Appearance: obese HEENT HEENT Narrative: No signs of infection noted in posterior pharynx Normocephalic atraumatic Eyes PERRL and EOMs intact bilaterally General Eye ED: Negative for scleral icterus Neck supple Neck Narrative: No nuchal rigidity or meningeal signs Resp normal respiratory effort and clear to auscultation bilaterally Cardio regular rhythm Rate: tachycardic and other Other Details: Slightly tachycardic rate with regular rhythm No murmurs rubs or gallop Radial and carotid pulses are equal and symmetric GI normal to inspection, nondistended, normoactive bowel sounds, non-tender, non-distended and no masses GI Narrative: No voluntary guarding or rigidity or pulsatile mass Auscultation: normoactive bowel sounds Palpation: soft Extremity normal to inspection Extremity Narrative: No asymmetric edema no pitting edema negative Homans' sign bilaterally Neuro oriented x3, CN's II-XII intact bilaterally and no sensory deficits noted Sensorium / Orientation: alert Motor Exam: strength 5/5 throughout Psych Psych Narrative: Patient denies any homicidal or suicidal ideation He does have a flat affect with tangential thought process Skin no rashes or lesions noted General Skin Exam: Negative for jaundice or pallor MDM MDM MDM Narrative Medical decision making narrative: Patient arrived to ER hypertensive otherwise with stable vitals. He reported a longstanding history of mental illness and states that he is even been admitted for hallucinations in the past. With the patient reporting increasing hallucinations recently despite his medication and the fact that he did threaten harm to his family members after having the hallucination event I do feel that a mental health screening is necessary and that the patient will need admitted. A basic medical screening exam was performed and revealed mild hypokalemia and a talk screen positive for MDMA/ecstasy. The hypokalemia is minimal and will not create any type of unwanted side effects and the positive MDMA screen is most likely related to his normal medication as multiple antidepressant medications can trigger a false positive result. Therefore the patient was medically cleared and evaluated by crisis center. They agree that with his worsening hallucinations and threats of harm to others that admission for inpatient medication adjustment is the safest option and therefore we will work on placement. The patient is medically cleared from emergency room standpoint for transfer/placement in a psychiatric hospital History & Record Review Discussion w/independent historian: Patient Lab Data Attestation: I reviewed the patient's lab results. Labs: Laboratory Results - last 24 hr 06/02/24 06/02/24 02:22 02:52 WBC 9.4 RBC 4.27 L Hgb 12.7 L Hct 39.2 L MCV 91.8 MCH 29.7 MCHC 32.4 RDW Std Deviation 46.2 H RDW Coeff of Rohith 13.6 Plt Count 298 MPV 9.0 Immature Gran % (Auto) 0.300 Neut % (Auto) 54.7 Lymph % (Auto) 30.8 [place] % (Auto) 9.1 Eos % (Auto) 4.5 Baso % (Auto) 0.6 Absolute Neuts (auto) 5.1 Absolute Lymphs (auto) 2.89 Nucleated RBC % 0 Sodium 139 Potassium 3.2 L Chloride 105 Carbon Dioxide 28.0 Anion Gap 6 BUN 9 Creatinine 1.01 Estim Creat Clear Calc 138.80 Est GFR (MDRD) Af Amer 109 Est GFR (MDRD) Non-Af 90 BUN/Creatinine Ratio 8.9 L Glucose 121 H Calcium 8.3 L Urine Color Yellow Urine Clarity Clear Urine pH 6.5 Ur Specific Earling 1.010 Urine Protein Negative Urine Glucose (UA) Normal Urine Ketones Negative Urine Occult Blood Negative Urine Nitrite Negative Urine Bilirubin Negative Urine Urobilinogen Normal Ur Leukocyte Esterase Negative Urine RBC 0 SEEN Urine WBC 0 SEEN Ur Squamous Epith Cells 0 SEEN Urine Bacteria 0 SEEN Urine Mucus 0 SEEN Urine Opiates Screen NEGATIVE Urine Methadone Screen NEGATIVE Ur Barbiturates Screen NEGATIVE Valproic Acid < 3 L Ur Phencyclidine Scrn NEGATIVE Ur Amphetamines Screen NEGATIVE MDMA (Ecstasy) Screen POSITIVE H U Benzodiazepines Scrn NEGATIVE Urine Cocaine Screen NEGATIVE U Cannabinoids Screen NEGATIVE Ur Drug Screen Comment Ethyl Alcohol < 3.0 Discharge Plan Triage Chief Complaint: Mental Health ED Provider: Diomedes York Dx/Rx/DC Orders Clinical Impression: Hallucinations, Schizophrenia, Bipolar disorder, Threatening behavior Prescriptions: No Action haloperidol [Haldol] 2 mg PO DAILY nicotine (polacrilex) 2 mg gum 2 mg PO Q2H PRN PRN (Reason: nicotine cravings) Perseris 120 mg suspension,extended rel syring 120 mg subcut Rx Instructions: once a month injection divalproex 500 mg tablet,delayed release (DR/EC) 500 mg PO BID gabapentin 300 mg capsule 300 mg PO DAILY PRN haloperidol 2 mg tablet 2 mg PO BID nabumetone 500 mg tablet 500 mg PO BID escitalopram oxalate 20 mg tablet 20 mg PO DAILY atomoxetine 25 mg capsule 25 mg PO DAILY atomoxetine 40 mg capsule PO bupropion HCl 300 mg tablet extended release 24 hr 300 mg PO DAILY benztropine 1 mg tablet 1 mg PO BID Primary Care Provider: Yovani Erickson Referrals: Yovani Erickson MD [Primary Care Provider] - Print Language: Kyrgyz Disposition Disposition: Psychiatric Hospital or Unit
[2024-06-02 03:35] VITALS: BP 124/91; PULSE 105; RESP 18; O2SAT 98
[2024-06-02 04:18] LABS: Valproic Acid (Depakene) Level < 3 ug/mL (50-100)
[2024-06-02] MEDS: Haloperidol 1 MG Tablet 2 MG PO (04:36)
[2024-06-02] MEDS: Divalproex Sodium 250 MG Tablet 500 MG PO (04:36)
--- NOTE | 2024-06-02 08:17 | ED.RN ---
Accepted at [facility] RM [id number]
[2024-06-02] MEDS: buPROPion (XL) 300 MG TABLET.XL PO (08:50)
[2024-06-02] MEDS: Benztropine Mesylate 0.5 MG TABLET 1 MG PO (08:50)
[2024-06-02] MEDS: Escitalopram Oxalate 20 MG Tablet PO (08:50)
[2024-06-02 09:22] VITALS: BP 108/73; PULSE 89; RESP 16; TEMP 37.1; O2SAT 98
--- NOTE | 2024-06-02 09:27 | ED.RN ---
REPORT CALLED TO BROOK CARRINGTON AT [facility]
== END 2024-06-02 09:29 ==
PROVIDERS: Emergency Provider Emergency Medicine; PCP Family Medicine; Visit Provider Emergency Medicine
DX: F20.9 Schizophrenia, unspecified (principal); F31.9 Bipolar disorder, unspecified; F41.9 Anxiety disorder, unspecified; Z79.899 Other long term (current) drug therapy; F17.290 Nicotine dependence, other tobacco product, uncomplicated
CPT/HCPCS: 80048; 80164; 80307; 81001; 82077; 85025; 99284

== ENCOUNTER 2024-08-03 12:44 | Emergency (ER) | payer MEDICARE, MEDICAID, SELFPAY ==
[2024-08-03 12:44] VITALS: BP 136/89; PULSE 98; RESP 16; TEMP 36.1; O2SAT 99; BMI 34.2
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
--- NOTE | 2024-08-03 13:28 | CT_ITS ---
EXAM: CT HEAD WITHOUT INTRAVENOUS CONTRAST CLINICAL INDICATION: fall, head trauma TECHNIQUE: Multiple axial images were obtained of the head without intravenous contrast. This CT exam was performed using one or more of the following dose reduction techniques: automated exposure control, adjustment of the mA and/or kV according to patient size, and/or use of iterative reconstruction technique. COMPARISON: CT Head dated 01/08/2024 FINDINGS: BRAIN AND EXTRA-AXIAL SPACES: Normal. Normal brain attenuation. No intra- or extra-axial hemorrhage. No acute infarct. No intracranial mass or mass effect. There is preservation of the sims/white matter interface. Posterior fossa structures are unremarkable. Ventricles are appropriate for age. No hydrocephalus. Basal cisterns are patent. BONES/JOINTS: Normal calvarium. SINUSES: No acute sinusitis. MASTOID AIR CELLS: Normal. Clear. CT/Brain/Head without Contrast IMPRESSION: No acute intracranial abnormality. No interval change. Electronically Signed: Soto Lamb MD at 14:12 EST ,
[2024-08-03 13:49] LABS: Absolute Lymphocyte Count 4.24 X10^3/uL (0.83-4.51); Absolute Neutrophil Count 3.8 X10^3/uL (2.0-7.7); Basophil# 0.05 X10^3/uL; Basophil% 0.5 % (0-1); Eosinophil# 0.28 X10^3/uL; Eosinophils% 2.9 % (0-5); Hematocrit 42.1 % (40-54); Hemoglobin 13.5 g/dL (13.0-16.5); Lymphocyte # 4.24 X10^3/ul (0.83-4.51); Lymphocyte % 44.5 % (19-41); Mean Corp Hgb Conc 32.1 g/dL (32-36); Mean Corpuscular Hgb 30.1 pg (27.0-32.0); Mean Platelet Vol. 9.3 fl (6.2-12.0); Monocyte# 1.14 X10^3/uL; NRBC Flagged by Analyzer 0 % (0-5); Neutrophil # 3.78 X10^3/uL (2.7-7.7); Neutrophil % 39.8 % (47-70); POSITIVE MORPHOLOGY YES; Platelet Count 311 K/mm3 (150-450); RBC Distribution Width CV 13.6 % (11.6-14.6); RBC Distribution Width SD 47.1 fl (35.1-43.9); Red Blood Count 4.48 M/mm3 (4.6-6.2); White Blood Count 9.5 K/mm3 (4.4-11.0)
[2024-08-03 13:51] LABS: Differential Indicated SCAN CRITERIA MET
[2024-08-03 14:11] LABS: Alcohol, Blood (Medical)-Serum < 3.0 mg/dL
[2024-08-03 14:13] LABS: Anion Gap 6 (5-15); Atypical Lymphocyte 1+ %; BUN 12 mg/dL (7-18); BUN/Creat Ratio 12.7 RATIO (10-20); Calcium,Total 8.4 mg/dL (8.5-10.1); Chloride 104 mmol/L (98-107); Creatinine, Serum 0.95 mg/dL (0.70-1.30); EST Glomerular Filtration Rate 97 mL/min (>60); Est Glom Filt Rate - Afr Amer 117 mL/min (>60); Estimated Creatinine Clearance 144.48 ml/min; Glucose 89 mg/dL (74-106); Potassium 3.1 mmol/L (3.5-5.1); Sodium Level 141 mmol/L (136-145)
[2024-08-03 14:44] VITALS: BP 140/68; PULSE 89; RESP 16; O2SAT 99
[2024-08-03 14:45] LABS: Amphetamine Urine VISTA NEGATIVE (<1000 ng/mL); Barbiturate Urine VISTA NEGATIVE (< 200 ng/mL); Benzodiazepine Urine VISTA NEGATIVE (< 200 ng/mL); Cocaine Urine VISTA NEGATIVE (< 300 ng/mL); Ecstacy Urine VISTA NEGATIVE (< 500 ng/mL); Methadone Urine VISTA NEGATIVE (< 300 ng/mL); PCP Urine VISTA NEGATIVE (< 25 ng/mL); THC Urine VISTA NEGATIVE (< 50 ng/mL); Vista UDS pH Range 6
[2024-08-03 16:00] VITALS: BP 168/76; PULSE 90; RESP 17; O2SAT 94
--- NOTE | 2024-08-03 18:25 | ED.RN ---
spoke with counselling center for med list.
--- NOTE | 2024-08-03 18:35 | ED.RN ---
PT IS REFERRED TO [facility]
--- NOTE | 2024-08-03 20:27 | ED.RN ---
Addendum entered by Melissa Velez 08/03/24 20:31: THERE WAS A MISS COMMUNICATION WITH JENY AND THE FACILITY, [facility] IS STILL REVIEWING THE REFERRAL. JENY WILL KEEP IN CONTACT WITH US Original Note: JENY CALLED AT 2026 SAYING [facility] DID NOT ACCEPT PT AND THAT HE WOULD BE IN CONTACT WITH US WITH WHERE HE REFERRES NEXT.
[2024-08-03] MEDS: Divalproex Sodium 250 MG Tablet 500 MG PO (21:35)
[2024-08-03] MEDS: Haloperidol 5 MG Tablet PO (21:35)
[2024-08-03 22:18] VITALS: BP 140/92; PULSE 72; RESP 18; O2SAT 97
--- NOTE | 2024-08-03 22:49 | ED.RN ---
JENY FROM CRISIS CALLED AGAIN SAYING THAT ONCE [facility] RECEIVES AND REVIEWS THE PAPERWORK THAT WAS FAXED (MEDICAL CLEARANCE AND MED LIST) THEN PT MAY BE ACCEPTED. HOWEVER, THE FACILITY IS CONCERNED ABOUT THE PTS POLICE CUSTODY AFTER STAY AT FACILITY. BUT THERE IS NO PAPERWORK FOR POLICE CUSTODY AT THIS TIME. JENY IS LOOKING INTO THIS SITUATION AND WILL BE IN CONTACT WITH US.
--- NOTE | 2024-08-03 22:52 | ED.RN ---
[facility] FAX NUMBER IS [phone]
[2024-08-04 06:27] VITALS: BP 132/86; PULSE 76; RESP 16; O2SAT 96
[2024-08-04 08:51] VITALS: BP 124/81; PULSE 74; RESP 16; TEMP 36.6; O2SAT 97
== END 2024-08-04 09:04 ==
PROVIDERS: Emergency Provider Emergency Medicine; PCP Family Medicine; Visit Provider Emergency Medicine
DX: R51.9 Headache, unspecified (principal); F20.9 Schizophrenia, unspecified; F31.9 Bipolar disorder, unspecified; R42 Dizziness and giddiness; F17.210 Nicotine dependence, cigarettes, uncomplicated; R45.850 Homicidal ideations; Z79.899 Other long term (current) drug therapy
CPT/HCPCS: 70450; 80048; 80307; 82077; 85025; 99284

== ENCOUNTER 2024-11-02 11:23 | Inpatient (IN) | payer MEDICARE, MEDICAID, SELFPAY ==
[2024-11-02] VITALS (17 sets, daily range): BP systolic 101–120; BP diastolic 58–78; PULSE 67–87; RESP 14–27; TEMP 36.4–37.1; O2SAT 93–98; BMI 39.2; BMI 39.7
--- NOTE | 2024-11-02 11:31 | EKG12_ITS ---
Test Reason : Blood Pressure : */* mmHG Vent. Rate : 67 BPM Atrial Rate : 67 BPM P-R Int : 158 ms QRS Dur : 110 ms QT Int : 458 ms P-R-T Axes : 28 19 50 degrees QTcB Int : 483 ms Normal sinus rhythm Prolonged QT Abnormal ECG Confirmed by Manuel Kim ([id number]), news editor JANELL RIVERA ([id number]) on 11/03/2024 7:47:36 AM Referred By: Confirmed By: Manuel Kim
[2024-11-02] MEDS: Activated Charcoal 50 GM/240 ML BOT PO (11:37)
[2024-11-02] MEDS: Ondansetron 4 MG/2 ML Vial IV (11:38)
[2024-11-02 11:46] LABS: Basophil# 0.05 X10^3/uL; Basophil% 0.5 % (0-1); Eosinophil# 0.19 X10^3/uL; Eosinophils% 2.1 % (0-5); Hematocrit 40.5 % (40-54); Hemoglobin 13.6 g/dL (13.0-16.5); Lymphocyte % 24.9 % (19-41); Mean Corp Hgb Conc 33.6 g/dL (32-36); Mean Corpuscular Hgb 31.3 pg (27.0-32.0); Mean Corpuscular Volume 93.3 fL (80-94); Mean Platelet Vol. 9.5 fl (6.2-12.0); Monocyte# 1.66 X10^3/uL; NRBC Flagged by Analyzer 0 % (0-5); Neutrophil # 4.99 X10^3/uL (2.7-7.7); Neutrophil % 54.1 % (47-70); POSITIVE DIFFERENTIAL YES; Platelet Count 197 K/mm3 (150-450); RBC Distribution Width CV 13.5 % (11.6-14.6); RBC Distribution Width SD 46.1 fl (35.1-43.9); Red Blood Count 4.34 M/mm3 (4.6-6.2); White Blood Count 9.2 K/mm3 (4.4-11.0)
[2024-11-02 11:48] LABS: Differential Indicated SCAN CRITERIA MET
[2024-11-02 12:06] LABS: AST(SGOT) 24 U/L (<=37); Alanine Aminotransfer ALT/SGPT 21 U/L (<=46); Albumin, Serum 3.9 g/dL (3.5-5.0); Alkaline Phosphatase 74 U/L (40-129); Anion Gap 14 (5-15); BUN 9 mg/dL (4-19); BUN/Creat Ratio 7.4 RATIO (10-20); Carbon Dioxide 23.4 mmol/L (21.0-32.0); Chloride 99 mmol/L (98-108); Creatinine, Serum 1.22 mg/dL (0.70-1.20); EST Glomerular Filtration Rate 80 (>60); Estimated Creatinine Clearance 119.42 ml/min (50-250); Glucose 161 mg/dL (70-99); Potassium 3.4 mmol/L (3.3-5.1); Protein, Total 5.9 g/dL (5.9-8.4); Sodium Level 136 mmol/L (133-145); Total Bilirubin 0.15 mg/dL (0.00-1.30)
[2024-11-02 12:18] LABS: Differential Comment SCANNED
--- NOTE | 2024-11-02 12:20 | EX.ED.CRITCA ---
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 He has history of depression. He intentionally took 6450 mg tablets of trazodone to harm himself. This was taken 30 to 45 minutes prior to arrival. Since his GC assess 15 he received 50 mg of activated charcoal. Nurse informing he vomited after arrival. She did not see pill fragments. He states he intended to harm himself. He now states he does not want to and wants me to save his life. Patient has attempted suicide in the past. Patient has been hospitalized for suicidal ideation/attempt. Patient is awake but not alert. He has no complaints at this time other than he does not want to . Prior similar symptoms: Yes Recent Illness/Hospitalization: No PFSH PFSH Medical History Schizophrenia Migraines Asthma Schizophrenia Bipolar disorder Depression Anxiety Smoker Home Medications ?Medication ?Instructions ?Recorded ?Last Taken ?Type divalproex 500 mg tablet,delayed 500 mg PO BID 06/02/24 Unknown History release haloperidol 5 mg tablet 5 mg PO BID 08/03/24 Unknown History risperidone 200 mg/0.56 mL 200 mg subcut .Q2MON 08/03/24 Unknown History subcutaneous extend release susp syringe ([employer]) albuterol sulfate 90 mcg/actuation 1 - 2 puff inhalation Q4H PRN PRN 11/02/24 Unknown History aerosol inhaler cough trazodone 50 mg tablet 50 mg PO QHS 11/02/24 Unknown History Allergy/AdvReac Type Severity Reaction Status Date / Time Sulfa (Sulfonamide Allergy Unknown Verified 11/02/24 11:30 Antibiotics) sulfisoxazole (From Allergy Hives Verified 11/02/24 11:30 Gantrisin) Social History (System 06/10/24 @ 07:12 by Fernanda Roblero) household members: family Smoking Status: Current every day smoker tobacco type: cigarettes and e-cigarettes ROS ROS ED Constitutional Constitutional ED: Denies chills, fever(s), subjective or sweats Eyes Eyes: Reports blurry vision ENT ENT ED: Denies ear pain, rhinorrhea or sore throat Cardiovascular Cardiovascular: Denies chest pain or palpitations Respiratory/Chest Respiratory/Chest: Denies cough, dyspnea or dyspnea on exertion Gastrointestinal Gastrointestinal: Reports nausea and vomiting; Denies abdominal pain, constipation, diarrhea or melena Genitourinary Genitourinary ED: Denies dysuria, hematuria or urinary frequency Musculoskeletal Musculoskeletal: Denies arthralgias or myalgias Integumentary Reports rash Neurologic Neurologic: Denies headache(s) or paresthesias Psychiatric Psychiatric: Reports anxiety, depression, suicidal ideation and suicidal thoughts Hematologic/Lymphatic Hematologic/Lymphatic: Denies easy bruising EXAM Physical Exam Const Vital Signs: 11/02/24 11:24 11/02/24 12:23 Temperature 97.7 F L Temperature Source Oral Pulse Rate 67 74 Respiratory Rate 14 18 Blood Pressure 105/64 117/78 Blood Pressure Mean 77 91 Pulse Ox 94 98 Oxygen Delivery Method Room Air Positive well nourished and well developed Constitutional Narrative: BMI is 39.2. He appears no distress. He opens his eyes to verbal. He states he does not want to any longer. General Appearance ED: well developed; Negative for pallor HEENT normocephalic and atraumatic; Negative for cyanosis of lips/distal nose or tenderness Eyes PERRL and EOMs intact bilaterally Eyes Narrative: There is no nystagmus. General Eye ED: Negative for pale conjunctiva or scleral icterus Neck full ROM, no lymphadenopathy and supple Cardio regular rate, regular rhythm, S1 normal heart sound, S2 normal heart sound and no murmurs GI non-tender, non-distended and no masses Auscultation: normoactive bowel sounds Palpation: soft Back/Spine no CVA tenderness Neuro oriented x3, CN's II-XII intact bilaterally and no sensory deficits noted Neuro Narrative: Gait was not tested. Has no dysmetria. There is no clonus Babinski sign. Sensorium / Orientation: Negative for alert Psych Mood & Affect: depressed Skin Skin Narrative: Blanching erythematous rash face and upper torso. There are no hives. There is no petechiae. This is not raised. General Skin Exam: Negative for jaundice or pallor Lesions: no lesions Rashes: No no rashes MDM MDM MDM Narrative Medical decision making narrative: Intentional overdose with significant mount of trazodone.Symptoms from overdose are difficulty breathing, respiratory arrest, chest pain, hypotension, bradycardia, drowsiness, lack of coordination, seizure. Patient received activated charcoal since this occurred 30 to 45 minutes prior to arrival and he has a GCS of 14 since he opened his eyes to verbal. Appropriate blood work was ordered. He will need admission for medical clearance prior to transfer to psychiatric facility. I will complete a peak shape. Lab Data Attestation: I reviewed the patient's lab results. Lab results narrative: CBC is unremarkable. Comprehensive metabolic panel visit elevated creatinine of 1.22 with an estimated GFR of 80. Glucose is elevated 161 with a normal CO2 anion gap. Alcohol is less than 10.1. Acetaminophen is 10.5 which is not significant. Salicylate level is low at 1.8. Labs: Laboratory Results - last 24 hr 11/02/24 11:35 WBC 9.2 RBC 4.34 L Hgb 13.6 Hct 40.5 MCV 93.3 MCH 31.3 MCHC 33.6 RDW Std Deviation 46.1 H RDW Coeff of Rohith 13.5 Plt Count 197 MPV 9.5 Immature Gran % (Auto) 0.400 Neut % (Auto) 54.1 Lymph % (Auto) 24.9 [place] % (Auto) 18.0 H Eos % (Auto) 2.1 Baso % (Auto) 0.5 Absolute Neuts (auto) 5.0 Absolute Lymphs (auto) 2.30 Nucleated RBC % 0 Differential Comment SCANNED Sodium 136 Potassium 3.4 Chloride 99 Carbon Dioxide 23.4 Anion Gap 14 BUN 9 Creatinine 1.22 H Estim Creat Clear Calc 119.42 Est GFR (MDRD) Non-Af 80 BUN/Creatinine Ratio 7.4 L Glucose 161 H Calcium 8.0 Total Bilirubin 0.15 AST 24 ALT 21 Alkaline Phosphatase 74 Total Protein 5.9 Albumin 3.9 Globulin 2.0 L Albumin/Globulin Ratio 2.0 Salicylates 1.8 L Acetaminophen 10.5 Ethyl Alcohol < 10.1 EKG Initial EKG: Attestation: I personally reviewed and interpreted this EKG as follows: Interpretation: Sinus Rhythm (Normal sinus rhythm rate of 67. This is abnormal since he has a prolonged QT which may be due to the trazodone. VA interval is under 58 ms. Cures duration 110 ms. QT duration 458 ms. [place] is normal.) Management Discussion w/another healthcare provider: Hospitalist (Hospitalist was paged at [phone] for admission. Case was discussed with Dr. Serrato who accepted patient. Full admit ICU) Critical Care Time Critical Care Time: Yes Critical care time (excluding procedures): 30-74 minutes (33), Including time spent: (History, physical, documentation, independent rotation laboratory results and EKG), Discussing w/Patient &/or Family/Dietetic Assistant, Discussing w/Consultants and Arranging Admission or Transfer Discharge Plan Dx/Rx/DC Orders Clinical Impression: Intentional overdose, Prolonged QT interval, Intentional overdose of trazodone, Somnolence, Depression, major Disposition Disposition: Acute Care Hospital [facility]
[2024-11-02 12:35] LABS: Acetaminophen (Tylenol) Level 10.5 ug/mL (8.0-19.0); Alcohol, Blood (Medical)-Serum < 10.1 mg/dL (<=10.0); Salicylate 1.8 mg/dL (2.8-20.0)
--- NOTE | 2024-11-02 13:06 | PCM.HP.STD ---
HPI - General General Date of Admission: 11/02/24 Date of Service: 11/02/24 Chief Complaint: Intentional drug overdose HPI Narrative AIMEE DUCKWORTH, is a 34 M with past medical history significant for schizophrenia, bipolar disorder depression with anxiety, mild intermittent asthma who presented to the emergency department following an intentional drug overdose. Patient had apparently taken 64 tablets of 50 mg of trazodone in an attempt to harm himself. Patient however admitted to not being suicidal at the time of my assessment in the emergency department. Initial workup did reveal prolonged QT C of 488. Patient did receive activated charcoal and admitted to the intensive care unit for further management. PFSH Medical History Schizophrenia Migraines Asthma Schizophrenia Bipolar disorder Depression Anxiety Smoker Home Medications ?Medication ?Instructions ?Recorded ?Last Taken ?Type divalproex 500 mg tablet,delayed 1,000 mg PO BID 06/02/24 11/02/24 History release albuterol sulfate 90 mcg/actuation 1 - 2 puff inhalation Q4H PRN cough 11/02/24 Unknown History aerosol inhaler bupropion HCl 300 mg 24 hr tablet, 300 mg PO DAILY 11/02/24 11/02/24 History extended release escitalopram oxalate 20 mg tablet 20 mg PO DAILY 11/02/24 11/02/24 History lorazepam 1 mg tablet 1 mg PO BID 11/02/24 Unknown History paliperidone palmitate 234 mg/1.5 234 mg IM Q30D 11/02/24 10/09/24 History mL intramuscular syringe (Invega Sustenna) trazodone 50 mg tablet 50 mg PO QHS 11/02/24 Unknown History Allergy/AdvReac Type Severity Reaction Status Date / Time Sulfa (Sulfonamide Allergy Unknown Verified 11/02/24 11:30 Antibiotics) sulfisoxazole (From Allergy Hives Verified 11/02/24 11:30 Gantrisin) Social History (System 06/10/24 @ 07:12 by Fernanda Roblero) household members: family Smoking Status: Current every day smoker tobacco type: cigarettes and e-cigarettes ROS ROS Narrative GENERAL: denies fever, chills, HEENT: denies headache, sinus congestion, RESPIRATORY: denies cough, sputum production, CARDIAC: denies chest pain, palpitations, GASTROINTESTINAL: denies abdominal pain, nausea, GENITOURINARY: denies dysuria, urgency, EXTREMITY: denies swelling MUSCULOSKELETAL: denies current joint pain NEUROLOGIC: denies focal numbness, HEMATOLOGIC: denies easy bruising INTEGUMENT: denies rashes PSYCHIATRIC: suicidal Vital Signs Vital Signs Vital Signs: 11/02/24 11:24 11/02/24 12:23 11/02/24 13:00 Temperature 97.7 F L Temperature Source Oral Pulse Rate 67 74 87 Respiratory Rate 14 18 16 Blood Pressure 105/64 117/78 107/78 Blood Pressure Mean 77 91 87 Pulse Ox 94 98 98 Oxygen Delivery Method Room Air Weight Weight: 131 kg Body Mass Index (BMI) 39.2 Physical Exam Narrative GENERAL: Somewhat somnolent but able to maintain a conversation HEENT: Atraumatic; normocephalic EYES; Anicteric, Normal Conjunctiva NECK; supple, normal thyroid, RESPIRATORY: Diminished to auscultation CARDIOVASCULAR: Regular S1 S2, GI: soft, normoactive bowel sounds, : No Renal angle tenderness; EXTREMITIES: No edema, no clubbing, MUSCULOSKELETAL: no muscle wasting NEURO: Awake; no lateralizing signs. SKIN: No Rash PSYCH; Flat affect Results Lab / Micro Data 11/02/24 11:35 11/02/24 11:35 Labs: Laboratory Results - last 24 hr 11/02/24 11:35: WBC 9.2, RBC 4.34 L, Hgb 13.6, Hct 40.5, MCV 93.3, MCH 31.3, MCHC 33.6, RDW Std Deviation 46.1 H, RDW Coeff of Rohith 13.5, Plt Count 197, MPV 9.5, Immature Gran % (Auto) 0.400, Neut % (Auto) 54.1, Lymph % (Auto) 24.9, [place] % (Auto) 18.0 H, Eos % (Auto) 2.1, Baso % (Auto) 0.5, Absolute Neuts (auto) 5.0, Absolute Lymphs (auto) 2.30, Nucleated RBC % 0, Differential Comment SCANNED, Sodium 136, Potassium 3.4, Chloride 99, Carbon Dioxide 23.4, Anion Gap 14, BUN 9, Creatinine 1.22 H, Estim Creat Clear Calc 119.42, Est GFR (MDRD) Non-Af 80, BUN/Creatinine Ratio 7.4 L, Glucose 161 H, Calcium 8.0, Total Bilirubin 0.15, AST 24, ALT 21, Alkaline Phosphatase 74, Total Protein 5.9, Albumin 3.9, Globulin 2.0 L, Albumin/Globulin Ratio 2.0, Salicylates 1.8 L, Acetaminophen 10.5, Ethyl Alcohol < 10.1 Assessment & Plan Assessment/Plan (1) Prolonged QT interval: (2) Intentional overdose of trazodone: PLAN: Plan Patient is a 34-year-old gentleman admitted with intentional drug overdose 1. Intentional drug overdose with trazodone ? Patient admitted to the intensive care unit for close monitoring. Initial QTc was 488. Patient did receive activated charcoal. Repeat EKG ordered for a.m. Patient was placed under suicide precaution 2. Schizophrenia ? Patient is on trazodone as well as haloperidol given his lethargy above medications were held 4. Bipolar disorder ? Patient is on valproic acid continue 4. Mild intermittent asthma ? Currently not in exacerbation patient is on albuterol as needed for shortness of breath 5. GERD ? Per patient currently not on any medication patient was placed on famotidine 6. Class II obesity with BMI of 39.2 ? Complicating care weight loss advised 7. Tobacco dependence ? Counseled on cessation, offered nicotine patch for tobacco cravings 8. DVT prophylaxis Low risk Time spent in the patient's overall evaluation,decision-making process, review of diagnostic data, adjustment of management, discussion with other providers, nursing nursing and ancillary staff involved in patient's care documentation, 75 Minutes Advance planning; did discuss patient's father regarding advanced directives as well as CODE STATUS. Did explain the various scenarios involved ( FULL CODE, DNR CCA, DNR CCA with no intubation, and DNR CC and what each meant) plan is for patient to remain full code at this point. Order was placed. Time spent on discussion 16 minutes. Charges/Coding Multi Select Codes Visit Charges Visit Charges: 09391 Init Hosp L3 Hospitalists' Procedures Procedures: 45774 Advncd Care Plan 30 Min
--- NOTE | 2024-11-02 13:45 | CM.ED ---
Social Work Patient was brought to ED after an intentional overdose of trazadone. Both parents were present in waiting room. Mom told SW that the prescription of trazodone were hers that patient took. Both mom and dad stated that patient seemed okay this morning when they both left for work, Dad stated that patient told him he loved him and to have a good day. Mom stated that she stopped back at the house later in the morning to check on patient and he was crying. It was at that time that patient told mom that he had ingested the medication. Patient told SW that he was depressed , that he feels that the psychiatrists are not getting his medications right. Patient confirmed that he was trying to commit suicide. Mom stated that patient has had some additional stressors lately that include legal issues but told SW that she did not want to discuss those. Patient initially refused to allow parents in to room to see him, stating they stress me out. Patient was asked twice, denied parents visit both times. After mom left ED, SW spoke further with Dad. 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 Dad stated that patient was not diagnosed with schizophrenia until he was 21, that he graduated high school and was able to complete an associates degree in college. Dad states that patient has had periods of time that he has been stable, that he was even able to maintain a job for awhile. Dad states in the last 6 months, that patient has been hospitalized 3 times and he questions the effectiveness of his medications. Dad expressed concern with his current counselor and psychiatrist. The list of local counselors and psychiatrists along with [place] information was given. SW did ask patient one more time if her would like to see his dad, patient did agree to have dad visit in room. Parents made aware that patient would be admitted for medical monitoring and then assessed for inpatient psychiatric admission. Ashley Box, DIRECTOR OF ESTATE, TELECOMMUNICATION ENGINEER
[2024-11-02] MEDS: 0.9% Normal Saline (1000mL) 1,000 ML 125 ML IV ×2 (13:54→21:05)
[2024-11-02 14:10] LABS: Amphetamine Urine PRESUMPTIVE POSITIVE (<1000 ng/mL); Barbiturate Urine NEGATIVE (< 200 ng/mL); Benzodiazepine Urine PRESUMPTIVE POSITIVE (< 200 ng/mL); Buprenorphine Urine NEGATIVE (< 200 ng/mL); Cocaine Urine NEGATIVE (< 300 ng/mL); Fentanyl, Urine NEGATIVE; Methadone Urine NEGATIVE (< 300 ng/mL); Opiates Urine NEGATIVE (< 300 ng/mL); Oxycodone, Urine NEGATIVE (< 100 ng/mL); PCP Urine NEGATIVE (< 25 ng/mL); THC Urine PRESUMPTIVE POSITIVE (< 50 ng/mL)
[2024-11-02] MEDS: Famotidine 20 MG Tablet PO ×2 (14:55→21:05)
[2024-11-02] MEDS: proCHLORPERazine 10 MG/2 ML Vial 5 MG IV (16:52)
[2024-11-02] MEDS: 0.9% Saline Lock 10 ML Syringe IV (16:53)
--- NOTE | 2024-11-02 18:18 | ED.RN ---
MOTHER TOOK ALL BELONGINGS INCLUDING ALL CLOTHES (VOMIT ON THEM), SHOES, SWORD AND RIZVI, WALLET ETC. DENTURE CUP OF JEWELRY SENT TO ICU.
[2024-11-02] MEDS: Divalproex Sodium 250 MG Tablet 1000 MG PO (21:05)
[2024-11-02] MEDS: Acetaminophen 325 MG Tablet 650 MG PO (21:42)
[2024-11-02] MEDS: guaiFENesin 10 ML UDC (200MG/10ML) PO (21:42)
[2024-11-03] VITALS (15 sets, daily range): BP systolic 101–126; BP diastolic 56–91; PULSE 62–108; RESP 14–29; TEMP 36.3–37.1; O2SAT 89–98; BMI 39.1
[2024-11-03 03:43] LABS: Absolute Lymphocyte Count 1.14 X10^3/uL (0.83-4.51); Absolute Neutrophil Count 3.8 X10^3/uL (2.0-7.7); Basophil# 0.02 X10^3/uL; Basophil% 0.3 % (0-1); Eosinophil# 0.03 X10^3/uL; Eosinophils% 0.5 % (0-5); Hemoglobin 12.6 g/dL (13.0-16.5); Lymphocyte # 1.14 X10^3/ul (0.83-4.51); Lymphocyte % 19.2 % (19-41); Mean Corp Hgb Conc 33.2 g/dL (32-36); Mean Corpuscular Hgb 31.2 pg (27.0-32.0); Mean Corpuscular Volume 94.1 fL (80-94); Mean Platelet Vol. 9.6 fl (6.2-12.0); Monocyte# 0.95 X10^3/uL; NRBC Flagged by Analyzer 0 % (0-5); Neutrophil # 3.77 X10^3/uL (2.7-7.7); Neutrophil % 63.5 % (47-70); Platelet Count 172 K/mm3 (150-450); RBC Distribution Width CV 13.8 % (11.6-14.6); RBC Distribution Width SD 48.2 fl (35.1-43.9); Red Blood Count 4.04 M/mm3 (4.6-6.2); White Blood Count 5.9 K/mm3 (4.4-11.0)
[2024-11-03 04:26] LABS: ALB/GLOB Ratio 1.9 RATIO (0.9-2.4); AST(SGOT) 22 U/L (<=37); Alanine Aminotransfer ALT/SGPT 19 U/L (<=46); Albumin, Serum 3.6 g/dL (3.5-5.0); Alkaline Phosphatase 66 U/L (40-129); Anion Gap 8 (5-15); BUN 7 mg/dL (4-19); BUN/Creat Ratio 6.6 RATIO (10-20); Calcium,Total 7.8 mg/dL (7.6-11.0); Carbon Dioxide 24.6 mmol/L (21.0-32.0); Chloride 104 mmol/L (98-108); Creatinine, Serum 1.01 mg/dL (0.70-1.20); EST Glomerular Filtration Rate 100 (>60); Estimated Creatinine Clearance 145.41 ml/min (50-250); Globulin 1.9 g/dL (2.2-4.2); Glucose 97 mg/dL (70-99); Magnesium 2.4 mg/dL (1.5-2.2); Phosphorus 3.5 mg/dL (2.7-4.5); Potassium 4.3 mmol/L (3.3-5.1); Protein, Total 5.6 g/dL (5.9-8.4); Sodium Level 137 mmol/L (133-145); Total Bilirubin 0.16 mg/dL (0.00-1.30)
[2024-11-03] MEDS: 0.9% Normal Saline (1000mL) 1,000 ML 125 ML IV (05:11)
--- NOTE | 2024-11-03 05:48 | NURSING ---
Denture cup with rings and necklaces, belongings of patient are locked in med humanities coordinator room.
[2024-11-03] MEDS: guaiFENesin 10 ML UDC (200MG/10ML) PO ×3 (05:53→18:52)
--- NOTE | 2024-11-03 05:55 | EKG12_ITS ---
Test Reason : OD Blood Pressure : */* mmHG Vent. Rate : 75 BPM Atrial Rate : 75 BPM P-R Int : 166 ms QRS Dur : 102 ms QT Int : 404 ms P-R-T Axes : 39 47 60 degrees QTcB Int : 451 ms Normal sinus rhythm Normal ECG Confirmed by Manuel Kim ([id number]), art editor JANELL RIVERA ([id number]) on 11/03/2024 7:58:31 AM Referred By: JEZ Confirmed By: Manuel Kim
--- NOTE | 2024-11-03 07:15 | PCM.PN.HOSP ---
Reason for Visit Reason for Visit: Diagnoses Abnormal electrocardiogram [ECG] [EKG] (11/02/24) Poisoning by selective serotonin and norepinephrine reuptake inhibitors, intentional self-harm, initial encounter (11/02/24) Subjective Subjective Patient is a 34-year-old gentleman admitted with intentional drug overdose. Patient was monitored in the intensive care unit overnight without any acute issue. QTc down to 450 this a.m. Patient medically stable to be evaluated by crisis team for transfer to an inpatient [facility] facility Objective Data Objective Data Vital Signs: Vital Signs Temp Pulse Resp BP Pulse Ox O2 Del Method O2 Flow Rate 98.8 F 66 28 H 110/66 95 Nasal Cannula 2 11/03/24 04:00 11/03/24 07:00 11/03/24 07:00 11/03/24 07:00 11/03/24 07:00 11/03/24 07:00 11/03/24 07:00 Oxygen Flow Rate (L/min) 2 Oxygen Delivery Method Nasal Cannula Weight: 131.088 kg Body Mass Index (BMI) 39.1 Intake & Output: Intake and Output for Last 24 Hours 11/01/24 11/02/24 11/03/24 23:59 23:59 23:59 Intake Total 897.92 / 897.92 1000 / 1000 Balance 897.92 / 897.92 1000 / 1000 Lab / Micro Data 11/03/24 03:30 11/03/24 03:30 Labs: Laboratory Results - last 24 hr 11/02/24 11:35: WBC 9.2, RBC 4.34 L, Hgb 13.6, Hct 40.5, MCV 93.3, MCH 31.3, MCHC 33.6, RDW Std Deviation 46.1 H, RDW Coeff of Rohith 13.5, Plt Count 197, MPV 9.5, Immature Gran % (Auto) 0.400, Neut % (Auto) 54.1, Lymph % (Auto) 24.9, [place] % (Auto) 18.0 H, Eos % (Auto) 2.1, Baso % (Auto) 0.5, Absolute Neuts (auto) 5.0, Absolute Lymphs (auto) 2.30, Nucleated RBC % 0, Differential Comment SCANNED, Sodium 136, Potassium 3.4, Chloride 99, Carbon Dioxide 23.4, Anion Gap 14, BUN 9, Creatinine 1.22 H, Estim Creat Clear Calc 119.42, Est GFR (MDRD) Non-Af 80, BUN/Creatinine Ratio 7.4 L, Glucose 161 H, Calcium 8.0, Total Bilirubin 0.15, AST 24, ALT 21, Alkaline Phosphatase 74, Total Protein 5.9, Albumin 3.9, Globulin 2.0 L, Albumin/Globulin Ratio 2.0, Salicylates 1.8 L, Acetaminophen 10.5, Ethyl Alcohol < 10.1 11/02/24 12:42: Urine Opiates Screen NEGATIVE, U Buprenorphine Qual NEGATIVE, Ur Oxycodone Screen NEGATIVE, Urine Methadone Screen NEGATIVE, Urine Fentanyl Screen NEGATIVE, Ur Barbiturates Screen NEGATIVE, Ur Phencyclidine Scrn NEGATIVE, Ur Amphetamines Screen PRESUMPTIVE POSITIVE, U Benzodiazepines Scrn PRESUMPTIVE POSITIVE, Urine Cocaine Screen NEGATIVE, U Cannabinoids Screen PRESUMPTIVE POSITIVE 11/03/24 03:30: WBC 5.9, RBC 4.04 L, Hgb 12.6 L, Hct 38.0 L, MCV 94.1 H, MCH 31.2, MCHC 33.2, RDW Std Deviation 48.2 H, RDW Coeff of Rohith 13.8, Plt Count 172, MPV 9.6, Immature Gran % (Auto) 0.500, Neut % (Auto) 63.5, Lymph % (Auto) 19.2, [place] % (Auto) 16.0 H, Eos % (Auto) 0.5, Baso % (Auto) 0.3, Absolute Neuts (auto) 3.8, Absolute Lymphs (auto) 1.14, Nucleated RBC % 0, Sodium 137, Potassium 4.3, Chloride 104, Carbon Dioxide 24.6, Anion Gap 8, BUN 7, Creatinine 1.01, Estim Creat Clear Calc 145.41, Est GFR (MDRD) Non-Af 100, BUN/Creatinine Ratio 6.6 L, Glucose 97, Calcium 7.8, Phosphorus 3.5, Magnesium 2.4 H, Total Bilirubin 0.16, AST 22, ALT 19, Alkaline Phosphatase 66, Total Protein 5.6 L, Albumin 3.6, Globulin 1.9 L, Albumin/Globulin Ratio 1.9 Physical Exam Narrative GENERAL: Patient in no apparent distress, HEENT: Atraumatic; normocephalic EYES; Anicteric, Normal Conjunctiva NECK; supple, normal thyroid, RESPIRATORY: Diminished to auscultation CARDIOVASCULAR: Regular S1 S2, GI: soft, normoactive bowel sounds, : No Renal angle tenderness; EXTREMITIES: No edema, no clubbing, MUSCULOSKELETAL: no muscle wasting NEURO: Awake; no lateralizing signs. SKIN: No Rash PSYCH; Flat affect Assessment & Plan Assessment/Plan (1) Prolonged QT interval: (2) Intentional overdose of trazodone: PLAN: Plan Patient is a 34-year-old gentleman admitted with intentional drug overdose 1. Intentional drug overdose with trazodone ? Patient admitted to the intensive care unit for close monitoring. Initial QTc was 488. Patient did receive activated charcoal. Repeat EKG ordered for a.m. Patient was placed under suicide precaution ? 11/03/2024 Patient was monitored in the intensive care unit overnight without any acute issue. QTc down to 450 this a.m. Patient medically stable to be evaluated by crisis team for transfer to an inpatient psych facility 2. Schizophrenia ? Patient is on trazodone as well as haloperidol given his lethargy above medications were held 4. Bipolar disorder ? Patient is on valproic acid continue 4. Mild intermittent asthma ? Currently not in exacerbation patient is on albuterol as needed for shortness of breath 5. GERD ? Per patient currently not on any medication patient was placed on famotidine 6. Class II obesity with BMI of 39.2 ? Complicating care weight loss advised 7. Tobacco dependence ? Counseled on cessation, offered nicotine patch for tobacco cravings 8. DVT prophylaxis Low risk Time spent in the patient's overall evaluation,decision-making process, review of diagnostic data, adjustment of management, discussion with other providers, nursing nursing and ancillary staff involved in patient's care documentation, 36 Minutes A Charges/Coding Visit Charges Inpatient E&M: 57575 Subs Hosp L2
[2024-11-03] MEDS: Divalproex Sodium 250 MG Tablet 1000 MG PO ×2 (07:39→22:06)
[2024-11-03] MEDS: Famotidine 20 MG Tablet PO ×2 (07:39→22:06)
[2024-11-03] MEDS: Acetaminophen 325 MG Tablet 650 MG PO (18:52)
--- NOTE | 2024-11-04 08:29 | PCM.DC.SUM ---
Providers Date of Admission: 11/02/24 Date of Discharge: 11/04/24 Primary Care Physician: Dr. Yovani Erickson MD Reason For Visit: INTENTIONAL DRUG OVERDOSE Diagnosis Discharge Diagnosis (1) Prolonged QT interval: Status: Acute Code(s): R94.31 - Abnormal electrocardiogram [ECG] [EKG] (2) Intentional overdose of trazodone: Status: Acute Code(s): T43.212A - Poisoning by selective serotonin and norepinephrine reuptake inhibitors, intentional self-harm, initial encounter Plan Patient is a 34-year-old gentleman admitted with intentional drug overdose 1. Intentional drug overdose with trazodone ? Patient admitted to the intensive care unit for close monitoring. Initial QTc was 488. Patient did receive activated charcoal. Repeat EKG ordered for a.m. Patient was placed under suicide precaution ? 11/03/2024 Patient was monitored in the intensive care unit overnight without any acute issue. QTc down to 450 this a.m. Patient medically stable to be evaluated by crisis team for transfer to an inpatient psych facility ? Patient was discharged to an inpatient psych facility once bed became available 2. Schizophrenia ? Patient is on trazodone as well as haloperidol given his lethargy above medications were held 4. Bipolar disorder ? Patient is on valproic acid continue 4. Mild intermittent asthma ? Currently not in exacerbation patient is on albuterol as needed for shortness of breath 5. GERD ? Per patient currently not on any medication patient was placed on famotidine 6. Class II obesity with BMI of 39.2 ? Complicating care weight loss advised 7. Tobacco dependence ? Counseled on cessation, offered nicotine patch for tobacco cravings 8. DVT prophylaxis Low risk Time spent in the patient's overall evaluation,decision-making process, review of diagnostic data, adjustment of management, discussion with other providers, nursing nursing and ancillary staff involved in patient's care documentation, 36 Minutes A Medications at Discharge Home Medications divalproex 500 mg tablet,delayed release 1,000 mg PO BID 06/02/24 albuterol sulfate 90 mcg/actuation aerosol inhaler 1 - 2 puff inhalation Q4H PRN cough 11/02/24 bupropion HCl 300 mg 24 hr tablet, extended release 300 mg PO DAILY 11/02/24 escitalopram oxalate 20 mg tablet 20 mg PO DAILY 11/02/24 lorazepam 1 mg tablet 1 mg PO BID 11/02/24 paliperidone palmitate 234 mg/1.5 mL intramuscular syringe (Invega Sustenna) 234 mg IM Q30D 11/02/24 trazodone 50 mg tablet 50 mg PO QHS 11/02/24 Physical Exam Narrative GENERAL: Patient in no apparent distress, HEENT: Atraumatic; normocephalic EYES; Anicteric, Normal Conjunctiva NECK; supple, normal thyroid, RESPIRATORY: Diminished to auscultation CARDIOVASCULAR: Regular S1 S2, GI: soft, normoactive bowel sounds, : No Renal angle tenderness; EXTREMITIES: No edema, no clubbing, MUSCULOSKELETAL: no muscle wasting NEURO: Awake; no lateralizing signs. SKIN: No Rash PSYCH; Flat affect Weight / BMI Weight Weight: 131.088 kg Body Mass Index (BMI) 39.1 ABG / Lab / Microbiology Data 11/03/24 03:30 11/03/24 03:30 D/C Instructions Discharge Diet: No restrictions Discharge Activity: Return to Normal Activity Call your doctor if you observe: Fever of 101 or Higher, Shortness of breath, Fainting spells and Chest pain DC O2, CPAP, BIPAP Needs Home O2 Discharge instructions: No Meaningful Use Info Meaningful Use Meaningful Use Diagnoses (Choose all that apply): None applicable Ischemic Stroke Statin Dosing Therapy Reference: STATIN DOSE THERAPY REFERENCE: * Patients > 75 years receive moderate or high dose statin therapy. * Patients 75 years or YOUNGER should receive HIGH intensity statin dose unless contraindicated. You will be required to document reason for non-treatment if statin daily dose does not meet guidelines. HIGH DOSE STATIN THERAPY DAILY Atorvastatin > than or = to 40 mg Rosuvastatin > than or = to 20 mg Amlodipine + Atorvastatin > than or = to 2.5/40 mg Ezetimibe + Simvastatin 10/80 mg Simvastatin 80mg Discharge Plan Admission Admit Date/Time: 11/02/24 12:55 Attending Provider: Román Sandoval Primary Care Provider: Yovani Erickson Discharge Orders/Prescriptions Prescriptions: No Action trazodone 50 mg tablet 50 mg PO QHS albuterol sulfate 90 mcg/actuation HFA aerosol inhaler 1 - 2 puff inhalation Q4H PRN (Reason: cough) Invega Sustenna 234 mg/1.5 mL syringe 234 mg IM Q30D lorazepam 1 mg tablet 1 mg PO BID escitalopram oxalate 20 mg tablet 20 mg PO DAILY bupropion HCl 300 mg tablet extended release 24 hr 300 mg PO DAILY divalproex 500 mg tablet,delayed release (DR/EC) 1,000 mg PO BID Referrals / Follow Up: Yovani Erickson MD [Primary Care Provider] - Disposition Disposition (needs filled in before D/C Order can be placed): Psychiatric Hospital or Unit Charges/Coding Visit Charges Inpatient E&M: 72344 Disch Hosp >30min
== END 2024-11-04 00:44 | DRG 918 ==
LOC: ED 12:59 → ICU 13:23 → MS3 11-03 18:42
PROVIDERS: Admitting Provider Internal Medicine; Emergency Provider Emergency Medicine; PCP Family Medicine; Visit Provider Internal Medicine
DX: T43.212A Poisoning by selective serotonin and norepinephrine reuptake inhibitors, intentional self-harm, initial encounter (principal); E66.812 Obesity, class 2; F20.9 Schizophrenia, unspecified; J45.20 Mild intermittent asthma, uncomplicated; F17.210 Nicotine dependence, cigarettes, uncomplicated; F31.9 Bipolar disorder, unspecified; K21.9 Gastro-esophageal reflux disease without esophagitis; F41.9 Anxiety disorder, unspecified; F17.290 Nicotine dependence, other tobacco product, uncomplicated; Z68.39 Body mass index [BMI] 39.0-39.9, adult; R40.0 Somnolence; R94.31 Abnormal electrocardiogram [ECG] [EKG]
CPT/HCPCS: 80053; 80143; 80179; 80307; 82077; 83735; 84100; 85025; 93005; 99285; A4216; J2405

== ENCOUNTER 2025-04-21 02:03 | Emergency (ER) | payer MEDICARE, MEDICAID, SELFPAY ==
[2025-04-21 02:04] VITALS: PULSE 114; RESP 19; TEMP 37.7; O2SAT 100; BMI 35.6
--- NOTE | 2025-04-21 02:14 | CT_ITS ---
PROCEDURE: ABDOMEN/PELVIS W IV CONT ONLY 04/21/2025 REASON FOR EXAM: ABD PAIN TECHNIQUE: Procedure Code: [id number] Modality: CT Procedure: ABDOMEN/PELVIS W IV CONT ONLY Coronal and Sagittal reconstruction series were provided. CONTRAST: OMNIPAQUE 350 VOLUME: 100 mL One or more dose reduction techniques were used (e.g., Automated exposure control, adjustment of the mA and/or kV according to patient size, use of iterative reconstruction technique. RADIATION DOSE SUMMARY: CTDlvol: 24.11 mGy DLP: 1411 mGycm COMPARISON: CT SCAN ON 04/13/2023. FINDINGS: Mild hepatic steatosis. Diffuse thickening of the stomach suggestive of gastritis. Mild multifocal thickening of the small bowels, probably enteritis. Mild multifocal thickening of the colon, probably colitis. No evidence of perforation or pneumatosis coli. Mild diffuse spondylosis. Fat containing umbilical hernia without incarceration. The visualized lung bases are unremarkable. Normal gallbladder and extrahepatic biliary system. Normal spleen. Normal pancreas. Normal bilateral adrenal glands. Normal size of the right kidney. There is no right renal mass. There are no right renal calculi. There is no right hydronephrosis. Normal visualized right ureter. Normal size of the left kidney. There is no left renal mass. There are no left renal calculi. There is no left hydronephrosis. Normal visualized left ureter. The appendix is visualized and appears normal. There is no demonstrated peritoneal fluid. Normal abdominal aorta. Normal inferior vena cava. Normal retroperitoneum. Normal urinary bladder. There is no pelvic mass lesion or lymphadenopathy. There is no pelvic fluid. CT/Abdomen/Pelvis W IV Cont ONLY IMPRESSION: Mild hepatic steatosis. Diffuse thickening of the stomach suggestive of gastritis. Mild multifocal thickening of the small bowels, probably enteritis. Mild multifocal thickening of the colon, probably colitis. No evidence of perforation or pneumatosis coli. Mild diffuse spondylosis. Reading Location: [facility]
[2025-04-21] MEDS: 0.9% Normal Saline (1000mL) 1,000 ML 999 ML IV (02:20)
[2025-04-21 02:22] VITALS: BP 150/104
--- NOTE | 2025-04-21 02:23 | EDS_ITS ---
HPI History of Present Illness Chief Complaint: Nausea/Vomiting Informant: patient and parent Narrative Narrative: Patient is a 34 year old male with past medical history of anxiety depression and schizophrenia. He states that over the last 24 to 36 hours he has had 10-15 bouts of nausea and vomiting with loose stool/diarrhea. He denies any known sick contacts. He states there is been no blood or discoloration to the emesis or stool. He denies any recent antibiotic use or travel outside the country. He states that he cannot hold any type of food or fluid down and he is having worsening abdominal pain as his symptoms continue and secondary to this he p resents for evaluation. [facility] Medical History Spinal stenosis Schizophrenia Depression Anxiety Smoker Schizophrenia Migraines Asthma Home Medications ?Medication ?Instructions ?Recorded ?Last Taken ?Type divalproex 500 mg tablet,delayed 1,000 mg PO BID 06/0211/02/24 History release albuterol sulfate 90 mcg/actuation 1 - 2 puff inhalati on Q4H PRN cough 11/02/24 Unknown History aerosol inhaler bupropion HCl 300 mg 24 hr tablet, 300 mg PO DAILY 08/2811/02/24 History extended release escitalopram oxalate 20 mg tablet 20 mg PO DAILY 11/0211/02/24 History lorazepam 1 mg tablet 1 mg PO BID 11/02/24 Unknown History paliperidone palmitate 234 mg/1.5 234 mg IM Q30D 11/0210/09/24 History mL intramuscular syringe (Invega Sustenna) trazodone 50 mg tablet 50 mg PO QHS 11/02/24 Unknow n History diclofenac sodium 75 mg 75 mg PO BID 04/21/25 Unknow n History tablet,delayed release haloperidol 5 mg tablet 5 mg PO BID 04/21/25 Unknown History hydroxyzine HCl 50 mg tablet 50 mg PO TID 04/21/25 Unk nown History oxycodone-acetaminophen 5 mg-325 1 tab PO Q6H PRN pain 3 days #12 04/21/25 Unknown Rx mg tablet (Percocet) tabs prochlorperazine maleate 10 mg 10 mg PO TID PRN nausea and 04/21/25 Unknown Rx tablet (Compazine) vomiting 7 days #21 tabs Allergy/AdvReac Type Severity Reaction Status Date / Time Sulfa (Sulfonamide Allergy Unknown Verified 04/21/25 02:06 Antibiotics) sulfisoxazole (From Allergy Hives Verified 04/21/25 02:06 Gantrisin) Social History (System 06/10/24 @ 07:12 by Fernanda Roblero) household members: family Smoking Status: Current every day smoker tobacco type: cigarettes and e- cigarettes ROS ROS ED Constitutional Constitutional ED: Reports chills, fever(s) and subjective ENT ENT ED: Denies sore throat Cardiovascular Cardiovascular: Denies chest pain Respiratory/Chest Respiratory/Chest: Denies cough or dyspnea Gastrointestinal Gastrointestinal: Reports abdominal pain, diarrhea, nausea and vomiting Genitourinary Genitourinary ED: Denies dysuria Musculoskeletal Musculoskeletal: Reports back pain and myalgias Integumentary Denies rash Neurologic Neurologic: Denies headache(s) Psychiatric Psychiatric: Reports anxiety and depression Hematologic/Lymphatic Hematologic/Lymphatic: Denies easy bleeding or easy bruising EXAM Physical Exam Const Vital Signs: 04/21/25 02:04 04/21/25 02:22 Temperature 99.9 F H Temperature Source Oral Pulse Rate 114 H Respiratory Rate 19 H Blood Pressure 150/104 H Blood Pressure Mean 119 Pulse Ox 100 Oxygen Delivery Method Room Air Positive well nourished, well developed and obese General Appearance ED: well developed; Negative for pallor Nutritional Appearance: obese HEENT HEENT Narrative: Normocephalic atraumatic No tongue or lip swelling no oral lesions no airway edema or compromise No secondary findings in the posterior pharynx to suggest infection Mucous membranes are dry and tacky however Eyes PERRL and EOMs intact bilaterally General Eye ED: Negative for scleral icterus Neck supple Neck Narrative: No nuchal rigidity or meningeal signs Resp normal respiratory effort and clear to auscultation bilaterally Cardio regular rhythm Rate: tachycardic and other Other Details: Tachycardic rate with regular rhythm Radial and carotid pulses are equal and symmetric GI non-distended and no masses GI Narrative: Abdomen is soft and nondistended with hyperactive bowel sounds. There is mild diffuse pain with palpation but no voluntary guarding or rigidity or pulsatile mass. No peritoneal signs Auscultation: hyperactive bowel sounds Palpation: soft Extremity normal to inspection Neuro oriented x3, CN's II-XII intact bilaterally and no sensory deficits noted Sensorium / Orientation: alert Motor Exam: strength 5/5 throughout Psych Mood & Affect: anxious Skin no rashes or lesions noted and No skin turgor normal Skin Narrative: Skin turgor is increased General Skin Exam: Negative for jaundice or pallor MDM MDM MDM Narrative Medical decision making narrative: Patient arrived to the ER with low-grade fever. He reported roughly 24 to 36 hours of nausea vomiting diarrhea with generalized abdominal discomfort. History and physical exam is most consistent with a viral stomach infection such as norovirus or rotavirus. However in order to ensure he is not developing an acute appendicitis versus acute cholecystitis versus pancreatitis versus diverticulitis I did elect to perform basic laboratory studies and CT scan with IV contrast. Labs showed leukocytosis with a white count of 14 with elevation in neutrophil count. His creatinine is slightly elevated at 1.44 correlating with mild dehydration. Otherwise there is no clinically significant findings to suggest acute kidney injury electrolyte abnormality or acute pancreatitis. CT scan showed diffuse inflammation of the stomach and intestines consistent with enteritis/colitis. However there is no sign of perforation or obstruction or abscess. After provided medication the patient reported feeling much better and there were no further bouts of nausea or vomiting. On reevaluation his abdomen remains soft and nonsurgical. Therefore at this time with improvement of symptoms and no surgical pathology noted on CT scan I do not feel there is need for further intervention and he is otherwise safe for discharge History & Record Review Discussion w/independent historian: Patient and Family Lab Data Attestation: I reviewed the patient's lab results. Labs: Laboratory Results - last 24 hr 04/21/25 02:20 WBC 14.0 H RBC 5.20 Hgb 16.4 Hct 48.7 MCV 93.7 MCH 31.5 MCHC 33.7 RDW Std Deviation 42.9 RDW Coeff of Rohith 12.3 Plt Count 372 MPV 9.9 Immature Gran % (Auto) 0.400 Neut % (Auto) 81.1 H Lymph % (Auto) 12.5 L [place] % (Auto) 5.4 Eos % (Auto) 0.2 Baso % (Auto) 0.4 Absolute Neuts (auto) 11.4 H Absolute Lymphs (auto) 1.75 Nucleated RBC % 0 Sodium 144 Potassium 3.9 Chloride 104 Carbon Dioxide 23.4 Anion Gap 17 H BUN 10 Creatinine 1.44 H Estim Creat Clear Calc 96.43 Est GFR (MDRD) Non-Af 65 BUN/Creatinine Ratio 7.2 L Glucose 125 H Calcium 9.4 Total Bilirubin 0.42 Direct Bilirubin 0.18 AST 14 ALT 12 Alkaline Phosphatase 77 Total Protein 7.2 Albumin 4.5 Globulin 2.7 Lipase 27 Radiography Diagnostic Testing: Clinical Impression(s) from Imaging Studies Abdomen/Pelvis CT 04/21/25 02:14 IMPRESSION: Mild hepatic steatosis. Diffuse thickening of the stomach suggestive of gastritis. Mild multifocal thickening of the small bowels, probably enteritis. Mild multifocal thickening of the colon, probably colitis. No evidence of perforation or pneumatosis coli. Mild diffuse spondylosis. Reading Location: [place] [address] Discharge Plan Triage Chief Complaint: Nausea/Vomiting ED Provider: Diomedes York Dx/Rx/DC Orders Clinical Impression: Nausea vomiting and diarrhea, Abdominal pain, Dehydration, Anxiety and depression, Schizophrenia Instructions: ED Dehydration (Adult), ED Gastroenteritis, Viral (Adult) Prescriptions: New prochlorperazine maleate [Compazine] 10 mg tablet 10 mg PO TID PRN (Reason: nausea and vomiting) 7 Days Qty: 21 0RF oxycodone-acetaminophen [Percocet] 5-325 mg tablet 1 tab PO Q6H PRN (Reason: pain) 3 Days Qty: 12 0RF No Action trazodone 50 mg tablet 50 mg PO QHS albuterol sulfate 90 mcg/actuation HFA aerosol inhaler 1 - 2 puff inhalation Q4H PRN (Reason: cough) Invega Sustenna 234 mg/1.5 mL syringe 234 mg IM Q30D lorazepam 1 mg tablet 1 mg PO BID escitalopram oxalate 20 mg tablet 20 mg PO DAILY bupropion HCl 300 mg tablet extended release 24 hr 300 mg PO DAILY divalproex 500 mg tablet,delayed release (DR/EC) 1,000 mg PO BID haloperidol 5 mg tablet 5 mg PO BID hydroxyzine HCl 50 mg tablet 50 mg PO TID diclofenac sodium 75 mg tablet,delayed release (DR/EC) 75 mg PO BID Primary Care Provider: Yovani Erickson Referrals: Yovani Erickson MD [Primary Care Provider, Family Practice] Activity Restrictions/Additional Instructions: Your CT scan showed irritation to your stomach and intestines consistent with gastroenteritis. This is a viral stomach infection that will last anywhere from 1 to 10 days with the average being 3 days. Please keep yourself well-hydrated and take the prescribed medication as directed to help control symptoms. Return to the ER should you have any further concerns Print Language: Czech Disposition Disposition: Home, Self Care
[2025-04-21 02:25] LABS: Hematocrit 48.7 % (40-54); Hemoglobin 16.4 g/dL (13.0-16.5); Immature Granulocytes Count 0.050 X10^3/uL (0.0-0.0); Mean Corp Hgb Conc 33.7 g/dL (32-36); Mean Corpuscular Volume 93.7 fL (80-94); Mean Platelet Vol. 9.9 fl (6.2-12.0); NRBC Flagged by Analyzer 0 % (0-5); Platelet Count 372 K/mm3 (150-450); RBC Distribution Width CV 12.3 % (11.6-14.6); RBC Distribution Width SD 42.9 fl (35.1-43.9); Red Blood Count 5.20 M/mm3 (4.6-6.2); White Blood Count 14.0 K/mm3 (4.4-11.0)
--- OUTSIDE RECORDS SUMMARY | 2025-04-21 02:44 | XMS RPT_ITS | CCD ---
Author Organization [facility] Care Team Providers Care Body And Frame Man Name Role Phone Lillie Ashtyn Unavailable Unavailable Hailey Jarquin CAGE LOADER Unavailable Unavailable Abraham Aguilar LOSS PREVENTION AGENT Unavailable Unavailable VIDAL CAMARGO Attending Unava ilable KAMRON ERICKSON [place] Primary Care Unavailable Der GUZMÁN, Dr. Pina Primary Care Provider [phone] Dr. Rodriguez Beavers DO Attending Provider Dr. Rodriguez Beavers DO Emergency Provider [phone] Guy GUZMÁN, Dr. Redd Emergency Provider [phone] Jez GUZMÁN, Dr. [place] Admit Provider Unavailable Jez GUZMÁN, Dr. [place] Attending Provider Unavailtenzin Sandoval MD, Dr. [place] Other Provider Unavailable Román Sandoval Consulting Unavailable Román Sandoval Attending Unavailable Román Sandoval Admitting Unavailable Dre, Kamron Primary Care Unavailable Tramaine Tovar Attending Unavailable Erickson, Kamron Primary Care Unavailable Gumaro Morejon Attending Unavailable Erickson, Kamron Primary Care Unavailable Gustavo Garcia Attending Unavailable Erickson, Kamron Primary Care Unavailable Dre, Kamron Primary Care Unavailable Rodriguez Beavers Attending Unavailable Diomedes York Attending Unavailable Dre, Kamron Primary Care Unavailable Román Sandoval Admitting Unavailable Erickson, Kamron Primary Care Unavailable Román Sandoval Attending Unavailable Erickson, Kamron Primary Care Unavailable Dre Kamron Attending Unavailable Román Sandoval Attending Unavailable Dre, Kamron Primary Care Unavailable Allergies Allergy Classification Reported Allergen(s) Allergy Type Date of Onset Reaction(s) Facility (8 sources) sulfiSOXAZOLE Drug Allergy 9 [facility] (9 sources) Sulfonamides (Antibiotic); Translations: [Sulfa (Sulfonamide Antibiotics)] Allergy to substance 9 [facility] (1 source) sulfiSOXAZOLE; Translations: [THIAGOISIN] Drug Allergy 3 [facility] Repository (1 source) sulfiSOXAZOLE Drug Allergy [address] [facility] Repository Medications Current Medications Medication Drug Class(es) Dates Sig (Normalized) Sig (Original) [id number] 200 actuat albuterol 0.09 mg/actuat metered dose inhaler (2 sources) beta2-Adrenergic Agonist Start: 11-02-2024 Albuterol Sulfate 90 mcg/actuation HFA aerosol inhaler Active 1 - 2 NMA INHALATION Q4H as needed for cough November 02, 2024 12:00am 24 hr buPROPion hydrochloride 300 mg extended release oral tablet (10 sources) Aminoketone Start: 11-02-2024 take 1 tablet by mouth once daily Bupropion Hcl 300 mg tablet extended release 24 hr Active 300 mg PO DAILY November 02, 2024 12:00am Start: 08-03-2024 End: 08-03-2024 take 1 tablet by mouth once daily Bupropion Hcl 100 mg tablet Discontinued 100 mg PO DAILY August 03, 2024 1:00am August 03, 2024 7:23pm Start: 08-03-2024 End: 08-03-2024 take 1 tablet by mouth once daily Bupropion Hcl 75 mg tablet Discontinued 75 mg PO DAILY August 03, 2024 1:00am August 03, 2024 7:23pm Start: 06-02-2024 End: 08-03-2024 take 1 tablet by mouth once daily Bupropion Hcl 300 mg tablet extended release 24 hr Discontinued 300 mg PO DAILY June 02, 2024 12:00am August 03, 2024 5:28pm Start: 04-25-2024 End: 08-03-2024 take 1 tablet by mouth once daily Bupropion Hcl 150 mg tablet extended release 24 hr Discontinued 150 mg PO DAILY April 25, 2024 12:00am August 03, 2024 5:28pm escitalopram 20 mg oral tablet (11 sources) Serotonin Reuptake Inhibitor Start: 11-02-2024 take 1 tablet by mouth once daily Escitalopram Oxalate 20 mg tablet Active 20 mg PO DAILY November 02, 2024 12:00am Start: 12-31-2021 End: 08-03-2024 take 1 tablet by mouth once daily Escitalopram Oxalate 20 mg tablet Discontinued 20 mg PO DAILY June 02, 2024 12:00am August 03, 2024 5:26pm LORazepam 1 mg oral tablet (2 sources) Benzodiazepine Start: 11-02-2024 take 1 tablet by mouth twice daily Lorazepam 1 mg tablet Active 1 mg PO TWICE A DAY November 02, 2024 12:00am 1.5 ml paliperidone palmitate 156 mg/ml prefilled syringe (11 sources) Atypical Antipsychotic Start: 11-02-2024 Paliperidone Palmitate (Invega Sustenna) 234 mg/1.5 mL syringe Active 234 mg IM Q30D November 02, 2024 12:00am Start: 04-25-2024 End: 08-03-2024 Paliperidone Palmitate (Inve ga Sustenna) 234 mg/1.5 mL syringe Discontinued 234 mg IM EVERY MONTH April 25, 2024 12:00am August 03, 2024 7:23pm Start: 12-31-2021 End: 04-25-2024 take 1 tablet by mouth once daily Paliperidone 3 mg tablet extended release 24hr Discontinued 3 mg PO DAILY December 31, 2021 12:00am April 25, 2024 10:22pm traZODone hydrochloride 50 mg oral tablet (4 sources) Serotonin Reuptake Inhibitor Start: 11-02-2024 take 1 tablet by mouth at bedtime Trazodone 50 mg tablet Active 50 mg PO AT BEDTIME November 02, 2024 12:00am Start: 08-03-2024 End: 08-03-2024 take 1 tablet by mouth at bedtime Trazodone 50 mg tablet Discontinued 50 mg PO AT BEDTIME August 03, 2024 1:00am August 03, 2024 7:23pm divalproex sodium 500 mg delayed release oral tablet (4 sources) Mood Stabilizer, Anti-epileptic Agent Start: 06-02-2024 take 2 tablets by mouth twice daily Divalproex 500 mg tablet,delayed release (DR/EC) Active 1000 mg PO TWICE A DAY June 02, 2024 12:00am Start: 04-25-2024 End: 08-03-2024 take 1 tablet by mouth twice daily Divalproex 125 mg tablet,delayed release (DR/EC) Discontinued 125 mg PO TWICE A DAY April 25, 2024 12:00am August 03, 2024 5:28pm Completed/Discontinued Medications Medication Drug Class(es) Dates Sig (Normalized) Sig (Original) atomoxetine 25 mg oral capsule (4 sources) Norepinephrine Reuptake Inhibitor Start: 06-02-2024 End: 08-03-2024 take 1 capsule by mouth once daily Atomoxetine 25 mg capsule Discontinued 25 mg PO DAILY June 02, 2024 12:00am August 03, 2024 5:28pm Start: 06-02-2024 End: 08-03-2024 Atomoxetine 40 mg capsule Di scontinued PO June 02, 2024 12:00am August 03, 2024 5:28pm benztropine mesylate 1 mg oral tablet (2 sources) Anticholinergic, Antihistamine Start: 06-02-2024 End: 08-03-2024 take 1 tablet by mouth twice daily Benztropine 1 mg tablet Discontinued 1 mg PO TWICE A DAY June 02, 2024 12:00am August 03, 2024 5:28pm gabapentin 300 mg oral capsule (6 sources) Anti-epileptic Agent Start: 06-02-2024 End: 08-03-2024 take 1 capsule by mouth once daily as needed Gabapentin 300 mg capsule Discontinued 300 mg PO DAILY NEEDED June 02, 2024 12:00am August 03, 2024 5:28pm Start: 04-25-2024 End: 08-03-2024 take 1 capsule by mouth once daily Gabapentin 100 mg capsule Discontinued 100 mg PO DAILY April 25, 2024 12:00am August 03, 2024 5:28pm Start: 04-25-2024 End: 08-03-2024 take 1 capsule by mouth five times daily Gabapentin 300 mg capsule Discontinued 300 mg PO 5 TIMES DAILY April 25, 2024 12:00am August 03, 2024 5:28pm haloperidol 5 mg oral tablet (8 sources) Typical Antipsychotic Start: 08-03-2024 End: 11-02-2024 take 1 tablet by mouth twice daily Haloperidol 5 mg tablet Discontinued 5 mg PO TWICE A DAY August 03, 2024 1:00am November 02, 2024 1:05pm Start: 06-02-2024 End: 08-03-2024 take 2 mg by mouth once daily haloperidol Discontinued 2 mg PO DAILY June 02, 2024 12:00am August 03, 2024 5:28pm Start: 04-25-2024 End: 08-03-2024 take 1 tablet by mouth twice daily Haloperidol 2 mg tablet Discontinued 2 mg PO TWICE A DAY June 02, 2024 12:00am August 03, 2024 5:22pm montelukast 10 mg oral tablet (5 sources) Leukotriene Receptor Antagonist Start: 01-30-2022 End: 04-25-2024 take 1 tablet by mouth once daily Montelukast (Singulair) 10 mg tablet Discontinued 10 mg PO DAILY January 30, 2022 12:00am April 25, 2024 10:22pm nabumetone 500 mg oral tablet (2 sources) Nonsteroidal Anti-inflammatory Drug Start: 06-02-2024 End: 08-03-2024 take 1 tablet by mouth twice daily Nabumetone 500 mg tablet Discontinued 500 mg PO TWICE A DAY June 02, 2024 12:00am August 03, 2024 5:28pm nicotine 2 mg chewing gum (2 sources) Cholinergic Nicotinic Agonist Start: 06-02-2024 End: 08-03-2024 take 2 mg by mouth every two hours as needed Nicotine (Polacrilex) 2 mg gum Discontinued 2 mg PO EVERY 2 HOURS NEEDED as needed for nicotine cravings June 02, 2024 12:00am August 03, 2024 5:28pm ondansetron 4 mg disintegrating oral tablet (15 sources) Serotonin-3 Receptor Antagonist Start: 01-30-2022 End: 04-25-2024 take 1 tablet by mouth every six hours as needed for nausea and vomiting Ondansetron 4 mg tablet,disintegra ting Discontinued 4 mg PO EVERY 6 HOURS as needed for nausea and vomiting January 30, 2022 12:00am April 25, 2024 10:22pm Start: 12-31-2021 End: 04-25-2024 take 1 tablet by mouth every eight hours as needed for nausea Ondansetron 4 mg tablet,disintegrating Discontinued 4 mg PO EVERY 8 HOURS NEEDED as needed for Nausea April 13, 2023 12:00am April 25, 2024 10:22pm predniSONE 10 mg oral tablet (2 sources) Start: 01-08-2024 End: 04-25-2024 Prednisone 10 mg tablet Discontinued 60 mg PO TWICE A DAY 84 January 08, 2024 12:00am April 25, 2024 10:21pm promethazine hydrochloride 25 mg oral tablet (3 sources) Phenothiazine Start: 04-13-2023 End: 04-25-2024 take 1 tablet by mouth three times daily as needed for nausea and vomiting Promethazine 25 mg tablet Discontinued 25 mg PO THREE TIMES A DAY as needed for nausea and vomiting 14 April 13, 2023 12:00am April 25, 2024 10:22pm Risperidone (6 sources) Atypical Antipsychotic Start: 08-03-2024 End: 11-02-2024 Risperidone (Uzedy) 200 mg/0.56 mL suspension,extend ed rel syring Discontinued 200 mg SC .Q2MON August 03, 2024 1:00am November 02, 2024 1:05pm Start: 04-25-2024 End: 08-03-2024 Risperidone (Perseris) 120 m g suspension,extended rel syring Discontinued 120 mg SC June 02, 2024 12:00am August 03, 2024 5:28pm once a month injection valACYclovir 1000 mg oral tablet (2 sources) Herpesvirus Nucleoside Analog DNA Polymerase Inhibitor, Herpes Simplex Virus Nucleoside Analog DNA Polymerase Inhibitor, Herpes Zoster Virus Nucleoside Analog DNA Polymerase Inhibitor Start: 01-08-2024 End: 04-25-2024 Valacyclovir 1 gram tablet Discontinued 1000 mg PO Q8H 14 January 08, 2024 12:00am April 25, 2024 10:21pm Problems Active Problems Problem Classification Problem Date Documented Date Episodic/Chronic Abdominal pain (2 sources) Unspecified abdominal pain; Translations: [Unspecified abdominal pain] Onset: 05-06-2023 Episodic Attention-deficit, conduct, and disruptive behavior disorders (6 sources) Threatening behavior; Translations: [Other symptoms and signs involving appearance and behavior] 06-07-2022 Episodic Cardiac dysrhythmias (2 sources) Tachycardia; Translations: [Tachycardia, unspecified] 05-04-2024 Episodic Chronic obstructive pulmonary disease and bronchiectasis (5 sources) Bronchitis; Translations: [Bronchitis, not specified as acute or chronic] 02-07-2022 Episodic Coma; stupor; and brain damage (2 sources) Drowsy; Translations: [Somnolence] 11-02-2024 Episodic Headache; including migraine (1 source) Headache; including migraine; Translations: [Headache, unspecified] Onset: 08-30-2024 Mood disorders (4 sources) Major depressive disorder; Translations: [Major depressive disorder, single episode, unspecified] 11-02-2024 Chronic Nausea and vomiting (14 sources) Nausea and vomiting; Translations: [Nausea with vomiting, unspecified] Onset: 05-06-2023 01-08-2022 Episodic Other circulatory disease (2 sources) Elevated blood-pressure reading without diagnosis of hypertension; Translations: [Elevated blood-pressure reading, without diagnosis of hypertension] 05-04-2024 Episodic Other lower respiratory disease (2 sources) Solitary pulmonary nodule; Translations: [Solitary pulmonary nodule] Onset: 05-06-2023 Episodic Other screening for suspected conditions (not mental disorders or infectious disease) (5 sources) Prolonged QT interval; Translations: [Abnormal electrocardiogram [ECG] [EKG]] Onset: 11-04-2024 11-02-2024 Episodic Residual codes; unclassified (2 sources) Hallucinations; Translations: [Hallucinations, unspecified] 06-10-2024 Episodic Schizophrenia and other psychotic disorders (14 sources) Paranoid schizophrenia; Translations: [Paranoid schizophrenia] Onset: 06-10-2024 06-07-2022 Chronic Schizophrenia and other psychotic disorders (4 sources) Brief psychotic disorder; Translations: [Acute psychosis] 06-07-2022 Episodic Screening and history of mental health and substance abuse codes (6 sources) H/O: schizophrenia; Translations: [Personal history of other mental and behavioral disorders] 01-08-2022 Episodic Substance-related disorders (2 sources) Cannabis abuse; Translations: [Cannabis use, unspecified, uncomplicated] 05-04-2024 Episodic Suicide and intentional self-inflicted injury (8 sources) Poisoning by unspecified drugs, medicaments and biological substances, intentional self-harm, initial encounter; Translations: [Intentional overdose] Onset: 11-04-2024 11-02-2024 Episodic Unclassified (1 source) Unknown / UNK(Unknown) Onset: 07-17-2017 Past or Other Problems Problem Classification Problem Date Documented Da te Episodic/Chronic Other nervous system disorders (1 source) Mark's palsy; 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 Román Sandoval MD Status: ADM IN Ordering Dr: Román Sandoval MD Date: 11/03/24 Location: ICU Sex: M C Admitted: 11/02/24 Test Reason : OD Blood Pressure : */* mmHG Vent. Rate : 75 BPM Atrial Rate : 75 BPM P-R Int : 166 ms QRS Dur : 102 ms QT Int : 404 ms P-R-T Axes : 39 47 60 degrees QTcB Int : 451 ms Normal sinus rhythm Normal ECG Confirmed by Manuel Kim ([id number]), assignment desk editor JANELL RIVERA ([id number]) on 11/03/2024 7:58:31 AM Referred By: JEZ Confirmed By: Manuel Kim 11/03/24 0758 Date Manuel Kim MD CC: Dr. Román Sandoval MD; Dr. Kamron Erickson MD Signed Normal [facility] Absolute neutrophil countOrd ered By: Román Sandoval on 11-03-2024 Neutrophils (Bld) [#/Vol] 3.8 10*3/uL 2.0-7.[address] [facility] Anion gap in Serum or Plasma Ordered By: Román Sandoval on 11-03-2024 Anion gap [Moles/Vol] 8 mmol/L 5-15 [facility] BUN/creatinine ratioOrdered By: Román Sandoval on 11-03-2024 Urea nitrogen/Creatinine [Mass ratio] 6.6 mg/mg Low 10-[address] [facility] Basophil percentageOrdered B y: Román Sandoval on 11-03-2024 Basophils/100 WBC (Bld) 0.3 % 0-1 [facility] Bilirubin, totalOrdered By: Román Sandoval on 11-03-2024 Bilirubin [Mass/Vol] 0.16 mg/dL 0.00-1.30 [facility] CBC W/Diff, Automatedon Absolute Lymph 1.14 X10 3/uL Normal 0.83-4.[address] [facility] Comment on above: Performed By: #### L 501.5200, L100.0100, L500.4050, L501.2300 ####[facility] [address] [place], [address] Absolute Neut 3.8 X10 3/uL Normal 2.0-7.[address] [facility] Comment on above: Performed By: #### L 501.5200, L100.0100, L500.4050, L501.2300 ####[facility] [address] [place], [address] Basophils/100 WBC (Bld) 0.3 % Normal 0-1 [facility] Comment on above: Performed By: #### L 501.5200, L100.0100, L500.4050, L501.2300 ####[facility] [address] [place], [address] Eosinophils/100 WBC (Bld) 0.5 % Normal 0-[address] [facility] Comment on above: Performed By: #### L 501.5200, L100.0100, L500.4050, L501.2300 ####[facility] [address] [place], [address] Erythrocyte distribution width (RBC) [Ratio] 13.8 % Normal 11.6-14.[address] [facility] Comment on above: Performed By: #### L 501.5200, L100.0100, L500.4050, L501.2300 ####[facility] [address] [place], [address] Hematocrit (Bld) [Volume fraction] 38.0 % Low 40-[address] [facility] Comment on above: Performed By: #### L 501.5200, L100.0100, L500.4050, L501.2300 ####[facility] [address] [place], [address] Hemoglobin (Bld) [Mass/Vol] 12.6 g/dL Low 13.0-16. [address] [facility] Comment on above: Performed By: #### L 501.5200, L100.0100, L500.4050, L501.2300 ####[facility] [address] [place], [address] IG% 0.500 Normal 0.0-0.[address] [facility] Comment on above: Result Comment: IG% - Immature Granulocytes (promyelocytes, myelocytes and metamyelocytes) > 1% indicates that a LEFT SHIFT is Present. Performed By: #### L 501.5200, L100.0100, L500.4050, L501.2300 ####[facility] [address] [place], [address] Lymphocytes/100 WBC (Bld) 19.2 % Normal 19-[address] [facility] Comment on above: Performed By: #### L 501.5200, L100.0100, L500.4050, L501.2300 ####[facility] [address] [place], [address] MCH (RBC) [Entitic mass] 31.2 pg Normal 27.0-32.[address] [facility] Comment on above: Performed By: #### L 501.5200, L100.0100, L500.4050, L501.2300 ####[facility] [address] [place], [address] MCHC (RBC) [Mass/Vol] 33.2 g/dL Normal 32-36 [facility] Comment on above: Performed By: #### L 501.5200, L100.0100, L500.4050, L501.2300 ####[facility] [address] [place], [address] MCV (RBC) [Entitic vol] 94.1 fL High 80-94 [facility] Comment on above: Performed By: #### L 501.5200, L100.0100, L500.4050, L501.2300 ####[facility] [address] [place], [address] Monocytes/100 WBC (Bld) 16.0 % High 0-10 [facility] Comment on above: Performed By: #### L 501.5200, L100.0100, L500.4050, L501.2300 ####[facility] [address] [place], [address] Neutrophils/100 WBC (Bld) 63.5 % Normal 47-[address] [facility] Comment on above: Performed By: #### L 501.5200, L100.0100, L500.4050, L501.2300 ####[facility] [address] [place], [address] Nucleated RBC (Bld) [#/Vol] 0 10*3/uL Normal 0-[address] [facility] Comment on above: Performed By: #### L 501.5200, L100.0100, L500.4050, L501.2300 ####[facility] [address] [place], [address] Platelet mean volume (Bld) [Entitic vol] 9.6 fL Normal 6.2-12.[address] [facility] Comment on above: Performed By: #### L 501.5200, L100.0100, L500.4050, L501.2300 ####[facility] [address] [place], [address] Platelets (Bld) [#/Vol] 172 10*3/uL Normal 150-[address] [facility] Comment on above: Performed By: #### L 501.5200, L100.0100, L500.4050, L501.2300 ####[facility] [address] [place], [address] RBC (Bld) [#/Vol] 4.04 10*6/uL Low 4.6-6.2 [facility] Comment on above: Performed By: #### L 501.5200, L100.0100, L500.4050, L501.2300 ####[facility] [address] [place], [address] RDW SD 48.2 fl High 35.1-43.[address] [facility] Comment on above: Performed By: #### L 501.5200, L100.0100, L500.4050, L501.2300 ####[facility] [address] [place], [address] WBC (Bld) [#/Vol] 5.9 10*3/uL Normal 4.4-11.0 [facility] Comment on above: Performed By: #### L 501.5200, L100.0100, L500.4050, L501.2300 ####[facility] [address] [place], [address] Carbon dioxide, total [Moles /volume] in Central venous bloodOrdered By: Román Sandoval on 11-03-2024 CO2 [Moles/Vol] 24.6 mmol/L 21.0-32.[address] [facility] Chloride assayOrdered By: Huy Sandoval on 11-03-2024 Chloride [Moles/Vol] 104 mmol/L 98-108 [facility] Comprehensive Metabolic Prof ilon 11-03-2024 Albumin [Mass/Vol] 3.6 g/dL Normal 3.5-5.0 [facility] Comment on above: Performed By: #### L 501.5200, L100.0100, L500.4050, L501.2300 ####[facility] [address] [place], [address] Albumin/Globulin [Mass ratio] 1.9 {ratio} Normal 0.9-2.[address] [facility] Comment on above: Performed By: #### L 501.5200, L100.0100, L500.4050, L501.2300 ####[facility] [address] [place], [address] ALK PHOS 66 U/L Normal 40-[address] [facility] Comment on above: Performed By: #### L 501.5200, L100.0100, L500.4050, L501.2300 ####[facility] [address] [place], [address] ALT [Catalytic activity/Vol] 19 U/L Normal <=[address] [facility] Comment on above: Performed By: #### L 501.5200, L100.0100, L500.4050, L501.2300 ####[facility] [address] [place], [address] AST [Catalytic activity/Vol] 22 U/L Normal <=[address] [facility] Comment on above: Performed By: #### L 501.5200, L100.0100, L500.4050, L501.2300 ####[facility] [address] [place], [address] Bilirubin [Mass/Vol] 0.16 mg/dL Normal 0.00-1.30 [facility] Comment on above: Performed By: #### L 501.5200, L100.0100, L500.4050, L501.2300 ####[facility] [address] [place], [address] BUN/CRE 6.6 RATIO Low 10-[address] [facility] Comment on above: Performed By: #### L 501.5200, L100.0100, L500.4050, L501.2300 ####[facility] [address] [place], [address] Calcium [Mass/Vol] 7.8 mg/dL Normal 7.6-11.0 [facility] Comment on above: Performed By: #### L 501.5200, L100.0100, L500.4050, L501.2300 ####[facility] [address] [place], [address] Chloride [Moles/Vol] 104 mmol/L Normal 98-108 [facility] Comment on above: Performed By: #### L 501.5200, L100.0100, L500.4050, L501.2300 ####[facility] [address] [place], [address] CO2 [Moles/Vol] 24.6 mmol/L Normal 21.0-32.[address] [facility] Comment on above: Performed By: #### L 501.5200, L100.0100, L500.4050, L501.2300 ####[facility] [address] [place], [address] Creatinine [Mass/Vol] 1.01 mg/dL Normal 0.70-1.20 [facility] Comment on above: Performed By: #### L 501.5200, L100.0100, L500.4050, L501.2300 ####[facility] [address] [place], [address] ECRCL 145.41 ml/min Normal 50-[address] [facility] Comment on above: Performed By: #### L 501.5200, L100.0100, L500.4050, L501.2300 ####[facility] [address] [place], [address] GAP 8 Normal 5-[address] [facility] Comment on above: Performed By: #### L 501.5200, L100.0100, L500.4050, L501.2300 ####[facility] [address] [place], [address] GFR/1.73 sq M.predicted among non-blacks MDRD (S/P/Bld) [Vol rate/Area] 100 mL/min/{1.73_m2} Normal >60 [facility] Comment on above: Result Comment: mL/m in/1.73m2 CKD-EPI Creatinine Equation (2020) Performed By: #### L 501.5200, L100.0100, L500.4050, L501.2300 ####[facility] [address] [place], [address] Globulin (S) [Mass/Vol] 1.9 g/dL Low 2.2-4.2 [facility] Comment on above: Performed By: #### L 501.5200, L100.0100, L500.4050, L501.2300 ####[facility] [address] [place], [address] Glucose [Mass/Vol] 97 mg/dL Normal 70-99 [facility] Comment on above: Performed By: #### L 501.5200, L100.0100, L500.4050, L501.2300 ####[facility] [address] [place], [address] Potassium [Moles/Vol] 4.3 mmol/L Normal 3.3-5.1 [facility] Comment on above: Performed By: #### L 501.5200, L100.0100, L500.4050, L501.2300 ####[facility] [address] [place], [address] Sodium [Moles/Vol] 137 mmol/L Normal 133-145 [facility] Comment on above: Performed By: #### L 501.5200, L100.0100, L500.4050, L501.2300 ####[facility] [address] [place], [address] T PROT 5.6 g/dL Low 5.9-8.[address] [facility] Comment on above: Performed By: #### L 501.5200, L100.0100, L500.4050, L501.2300 ####[facility] [address] [place], [address] Urea nitrogen [Mass/Vol] 7 mg/dL Normal 4-[address] [facility] Comment on above: Performed By: #### L 501.5200, L100.0100, L500.4050, L501.2300 ####[facility] [address] [place], [address] Electrocardiogram reportOrde red By: Manuel Kim on 11-03-2024 EKG study [facility] Cardiovascular Services [address] [place] [address] 12 Lead EKG 11/03/24 0504 MR#: [id number] Acct: [id number] Name: AIMEE DUCKWORTH Rep #:[id number] : 1990 34 From: Manuel walsh MD Attending Dr: Dr. Román Sandoval MD Status: ADM IN Ordering Dr: Román Sandoval MD Date: Location: ICU Sex: M C Admitted: 11/02/24 Test Reason : OD Blood Pressure : */* mmHG Vent. Rate : 75 BPM Atrial Rate : 75 BPM P-R Int : 166 ms QRS Dur : 102 ms QT Int : 404 ms P-R-T Axes : 39 47 60 degrees QTcB Int : 451 ms Normal sinus rhythm Normal ECG Confirmed by Manuel Kim ([id number]), assignment desk editor JANELL RIVERA ([id number]) on 11/03/2024 7:58:31 AM Referred By: JEZ Confirmed By: Manuel Kim 11/03/24 0758 Date _ Manuel Kim MD CC: Dr. Román Sandoval MD; Dr. Kamron Erickson MD ~ Signed [facility] Other Phone: [phone] EKG study [facility] Cardiovascular Services [address] [place] [address] 12 Lead EKG 11/02/24 1148 MR#: [id number] Acct: [id number] Name: AIMEE DUCKWORTH Rep #:[id number] : 1990 34 From: Manuel walsh MD Attending Dr: Dr. Román Sandoval MD Status: ADM IN Ordering Dr: Tramaine Tovar MD Date: 11/02 Location: ICU Sex: M C Admitted: 11/02/24 Test Reason : Blood Pressure : */* mmHG Vent. Rate : 67 BPM Atrial Rate : 67 BPM P-R Int : 158 ms QRS Dur : 110 ms QT Int : 458 ms P-R-T Axes : 28 19 50 degrees QTcB Int : 483 ms Normal sinus rhythm Prolonged QT Abnormal ECG Confirmed by Manuel Kim ([id number]), assignment desk editor JANELL RIVERA ([id number]) on 11/03/2024 7:47:36 AM Referred By: Confirmed By: Manuel Kim 11/03/24 0747 Date _ Manuel Kim MD CC: Dr. Román Sandoval MD; Dr. Kamron Erickson MD; Dr. Tramaine Tovar MD ~ Signed [facility] Other Phone: [phone] Eosinophil percentageOrdered By: Román Sandoval on 11-03-2024 Eosinophils/100 WBC (Bld) 0.5 % 0-[address] [facility] Erythrocyte distribution wid th (RBC) [Ratio]Ordered By: Román Sandoval on 11-03-2024 Erythrocyte distribution width (RBC) [Entitic vol] 48.2 fL High 35.1-43.9 [facility] Erythrocyte distribution wid th ratioOrdered By: Román Sandoval on 11-03-2024 Erythrocyte distribution width (RBC) [Ratio] 13.8 % 11.6-14.[address] [facility] Estimation of creatinine vick aranceOrdered By: Román Sandoval on 11-03-2024 Estimated Creatinine Clearance Calc 145.41 ml/min 50-[address] [facility] GFR/1.73 sq M.predicted lana g non-blacks MDRD (S/P/Bld) [Vol rate/Area]Ordered By: Román Sandoval on 11-03-2024 Estimated GFR (MDRD) Non-Af Amer 100 >[address] [facility] Comment on above: mL/min/1.73m2 CKD-EP I Creatinine Equation (2020) Hematocrit Auto (Bld) [Volum e fraction]Ordered By: Román Sandoval on 11-03-2024 Hematocrit (Bld) [Volume fraction] 38.0 % Low 40-[address] [facility] Hemoglobin measurementOrdere d By: Román Sandoval on 11-03-2024 Hemoglobin (Bld) [Mass/Vol] 12.6 g/dL Low 13.0-16. [address] [facility] Immature granulocytes/100 WB C Auto (Bld)Ordered By: Román Sandoval on 11-03-2024 Immature granulocytes/100 WBC (Bld) 0.500 % 0.0-0.[address] [facility] Comment on above: IG% - Immature Granu locytes (promyelocytes, myelocytes and metamyelocytes) > 1% indicates that a LEFT SHIFT is Present. Laboratory - Chemistry and C hemistry - challengeOrdered By: Román Sandoval on 11-03-2024 AST [Catalytic activity/Vol] 22 U/L <[address] [facility] Lymphocytes Auto (Unsp spec) [#/Vol]Ordered By: Román Sandoval on 11-03-2024 Lymphocytes (Bld) [#/Vol] 1.14 10*3/uL 0.83-4.[address] [facility] Lymphocytes/100 WBC Auto (Un sp spec)Ordered By: Román Sandoval on 11-03-2024 Lymphocytes/100 WBC (Bld) 19.2 % 19-[address] [facility] MCV (mean corpuscular volume ) determinationOrdered By: Román Sandoval on 11-03-2024 MCV (RBC) [Entitic vol] 94.1 fL High 80-94 [facility] Magnesiumon 11-03-2024 Magnesium [Mass/Vol] 2.4 mg/dL High 1.5-2.2 [facility] Comment on above: Performed By: #### L 501.5200, L100.0100, L500.4050, L501.2300 ####[facility] [address] [place], [place], [id number] Magnesium (Unsp spec) [Mass/ Vol]Ordered By: Román Sandoval on 11-03-2024 Magnesium [Mass/Vol] 2.4 mg/dL High 1.5-2.2 [facility] Mean corpuscular hemoglobin (MCH) determinationOrdered By: Román Sandoval on 11-03-2024 MCH (RBC) [Entitic mass] 31.2 pg 27.0-32.[address] [facility] Mean corpuscular hemoglobin concentration (MCHC) determinationOrdered By: Román Sandoval on 11-03-2024 MCHC (RBC) [Mass/Vol] 33.2 g/dL 32-36 [facility] Mean platelet volume determi nationOrdered By: Román Sandoval on 11-03-2024 Platelet mean volume (Bld) [Entitic vol] 9.6 fL 6.2-12.[address] [facility] Monocyte percentageOrdered B y: Román Sandoval on 11-03-2024 Monocytes/100 WBC (Bld) 16.0 % High 0-10 [facility] Neutrophil percentageOrdered By: Román Sandoval on 11-03-2024 Neutrophils/100 WBC (Bld) 63.5 % 47-[address] [facility] Nucleated red blood cell per centageOrdered By: Román Sandoval on 11-03-2024 Nucleated RBC/100 WBC (Bld) [Ratio] 0 % 0-[address] [facility] Phosphoruson 11-03-2024 Phosphate [Mass/Vol] 3.5 mg/dL Normal 2.7-4.5 [facility] Comment on above: Performed By: #### L 501.5200, L100.0100, L500.4050, L501.2300 ####[facility] [address] [place], [address] Platelet countOrdered By: Huy Sandoval on 11-03-2024 Platelets (Bld) [#/Vol] 172 10*3/uL 150-[address] [facility] Potassium (Unsp spec) [Mass/ Vol]Ordered By: Román Sandoval on 11-03-2024 Potassium [Moles/Vol] 4.3 mmol/L 3.3-5.1 [facility] RBC Auto (Bld) [#/Vol]Ordere d By: Román Sandoval on 11-03-2024 RBC (Bld) [#/Vol] 4.04 10*6/uL Low 4.6-6.2 [facility] Serum creatinine measurement (mass/volume)Ordered By: Román Sandoval on 11-03-2024 Creatinine [Mass/Vol] 1.01 mg/dL 0.70-1.20 [facility] Serum globulin measurementOr dered By: Román Sandoval on 11-03-2024 Globulin (S) [Mass/Vol] 1.9 g/dL Low 2.2-4.2 [facility] Serum glucose measurement (m ass/volume)Ordered By: Román Sandoval on 11-03-2024 Glucose [Mass/Vol] 97 mg/dL 70-99 [facility] Serum or plasma alanine comer otransferase (ALT) measurementOrdered By: Román Sandoval on 11-03-2024 ALT [Catalytic activity/Vol] 19 U/L <[address] [facility] Serum or plasma albumin mauro urement (mass/volume)Ordered By: Román Sandoval on 11-03-2024 Albumin [Mass/Vol] 3.6 g/dL 3.5-5.0 [facility] Serum or plasma albumin/glob ulin mass ratioOrdered By: Román Sandoval on 11-03-2024 Albumin/Globulin [Mass ratio] 1.9 {ratio} 0.9-2.[address] [facility] Serum or plasma alkaline fatuma sphatase measurementOrdered By: Román Sandoval on 11-03-2024 ALP [Catalytic activity/Vol] 66 U/L 40-[address] [facility] Serum or plasma calcium mauro urement (mass/volume)Ordered By: Román Sandoval on 11-03-2024 Calcium [Mass/Vol] 7.8 mg/dL 7.6-11.0 [facility] Serum or plasma urea nitroge n measurement (mass/volume)Ordered By: Román Sandoval on 11-03-2024 Urea nitrogen [Mass/Vol] 7 mg/dL 4-[address] [facility] Serum phosphorus measurement Ordered By: Román Sandoval on 11-03-2024 Phosphorus Level 3.5 mg/dL 2.7-4.[address] [facility] Sodium levelOrdered By: Matt Sandoval on 11-03-2024 Sodium [Moles/Vol] 137 mmol/L 133-145 [facility] Total proteinOrdered By: Maxx Sandoval on 11-03-2024 Protein [Mass/Vol] 5.6 g/dL Low 5.9-8.4 [facility] White blood cell (WBC) count Ordered By: Román Sandoval on 11-03-2024 WBC (Bld) [#/Vol] 5.9 10*3/uL 4.4-11.0 [facility] 12 Lead EKGon 11-02-2024 12 Lead EKG [facility] Cardiovascular Services [address] [place] [address] 12 Lead EKG 11/02/24 1148 MR#: [id number] Acct: [id number] Name: AIMEE DUCKWORTH Rep #: [id number] : 1990 34 From: Manuel Kim MD Attending Dr: Dr. Román Sandoval MD Status: ADM IN Ordering Dr: Tramaine Tovar MD Date: 11/02/24 Location: ICU Sex: M C Admitted: 11/02/24 Test Reason : Blood Pressure : */* mmHG Vent. Rate : 67 BPM Atrial Rate : 67 BPM P-R Int : 158 ms QRS Dur : 110 ms QT Int : 458 ms P-R-T Axes : 28 19 50 degrees QTcB Int : 483 ms Normal sinus rhythm Prolonged QT Abnormal ECG Confirmed by Manuel Kim ([id number]), assignment desk editor JANELL RIVERA ([id number]) on 11/03/2024 7:47:36 AM Referred By: Confirmed By: Manuel Kim 11/03/24 0747 Date Manuel Kim MD CC: Dr. Román Sandoval MD; Dr. Kamron Erickson MD; Dr. Tramaine Tovar MD Signed Normal [facility] Absolute neutrophil countOrd ered By: Tramaine Tovar on 11-02-2024 Neutrophils (Bld) [#/Vol] 5.0 10*3/uL 2.0-7.[address] [facility] Acetaminophen (Tylenol) Leve sandra 11-02-2024 Acetaminophen [Mass/Vol] 10.5 ug/mL Normal 8.0-19.[address] [facility] Comment on above: Result Comment: Acet aminophen concentrations > 200 ug/mL four hours after ingestion, > 100 ug/mL eight hours after ingestion, and > 50 ug/mL 12 hours after ingestion are potentially toxic. Performed By: #### L 501.8400, L505.5000, L501.8300, L501.9100, L100.0100, L500.4050 ####[facility] [address] [facility] [place], [place], [id number] Alcohol, Blood (Medical)-Ser umon 11-02-2024 SERUM ETOH < 10.1 Normal <=10.[address] [facility] Comment on above: Result Comment: This test is for medical purposes only. The legal definition of intoxication varies according to local law. Performed By: #### L 501.8400, L505.5000, L501.8300, L501.9100, L100.0100, L500.4050 ####[facility] [address] [place], [place], [id number] Amphetamines Screen method > 1000 ng/mL Ql (U)Ordered By: Tramaine Tovar on 11-02-2024 Amphetamines Ql (U) Positive <1000 ng/mL [facility] Comment on above: If confirmation test ing is needed, a separate order will be required to send out testing to the reference laboratory. Urine Barbiturates Screen Negative < 200 ng/mL [facility] Anion gap in Serum or Plasma Ordered By: Tramaine Tovar on 11-02-2024 Anion gap [Moles/Vol] 14 mmol/L 5-15 [facility] BUN/creatinine ratioOrdered By: Tramaine Tovar on 11-02-2024 Urea nitrogen/Creatinine [Mass ratio] 7.4 mg/mg Low 10-[address] [facility] Basophil percentageOrdered B y: Tramaine Tovar on 11-02-2024 Basophils/100 WBC (Bld) 0.5 % 0-1 [facility] Bilirubin, totalOrdered By: Tramaine Tovar on 11-02-2024 Bilirubin [Mass/Vol] 0.15 mg/dL 0.00-1.30 [facility] CBC W/Diff, Automatedon SMEAR COMMENT SCANNED Normal [facility] Comment on above: Result Comment: SLIG HT MONOCYTOSIS NOTED Performed By: #### L 501.8400, L505.5000, L501.8300, L501.9100, L100.0100, L500.4050 ####[facility] [address] [place], [place], [id number] Carbon dioxide, total [Moles /volume] in Central venous bloodOrdered By: Tramaine Tovar on 11-02-2024 CO2 [Moles/Vol] 23.4 mmol/L 21.0-32.[address] [facility] Chloride assayOrdered By: Alanis Tovar on 11-02-2024 Chloride [Moles/Vol] 99 mmol/L 98-108 [facility] Comprehensive Metabolic Prof ilon 11-02-2024 Albumin [Mass/Vol] 3.9 g/dL Normal 3.5-5.0 [facility] Comment on above: Performed By: #### L 501.8400, L505.5000, L501.8300, L501.9100, L100.0100, L500.4050 ####[facility] [address] [place], [place], [address] Albumin/Globulin [Mass ratio] 2.0 {ratio} Normal 0.9-2.[address] [facility] Comment on above: Performed By: #### L 501.8400, L505.5000, L501.8300, L501.9100, L100.0100, L500.4050 ####[facility] [address] [place], [address] ALK PHOS 74 U/L Normal 40-[address] [facility] Comment on above: Performed By: #### L 501.8400, L505.5000, L501.8300, L501.9100, L100.0100, L500.4050 ####[facility] [address] [place], [address] ALT [Catalytic activity/Vol] 21 U/L Normal <=[address] [facility] Comment on above: Performed By: #### L 501.8400, L505.5000, L501.8300, L501.9100, L100.0100, L500.4050 ####[facility] [address] [place], [address] AST [Catalytic activity/Vol] 24 U/L Normal <=[address] [facility] Comment on above: Performed By: #### L 501.8400, L505.5000, L501.8300, L501.9100, L100.0100, L500.4050 ####[facility] [address] [place], [address] Bilirubin [Mass/Vol] 0.15 mg/dL Normal 0.00-1.30 [facility] Comment on above: Performed By: #### L 501.8400, L505.5000, L501.8300, L501.9100, L100.0100, L500.4050 ####[facility] [address] [place], [address] BUN/CRE 7.4 RATIO Low 10-[address] [facility] Comment on above: Performed By: #### L 501.8400, L505.5000, L501.8300, L501.9100, L100.0100, L500.4050 ####[facility] [address] [place], [address] Calcium [Mass/Vol] 8.0 mg/dL Normal 7.6-11.0 [facility] Comment on above: Performed By: #### L 501.8400, L505.5000, L501.8300, L501.9100, L100.0100, L500.4050 ####[facility] [address] [place], [address] Chloride [Moles/Vol] 99 mmol/L Normal 98-108 [facility] Comment on above: Performed By: #### L 501.8400, L505.5000, L501.8300, L501.9100, L100.0100, L500.4050 ####[facility] [address] [place], [address] CO2 [Moles/Vol] 23.4 mmol/L Normal 21.0-32.[address] [facility] Comment on above: Performed By: #### L 501.8400, L505.5000, L501.8300, L501.9100, L100.0100, L500.4050 ####[facility] [address] [place], [address] Creatinine [Mass/Vol] 1.22 mg/dL High 0.70-1.20 [facility] Comment on above: Performed By: #### L 501.8400, L505.5000, L501.8300, L501.9100, L100.0100, L500.4050 ####[facility] [address] [place], [address] ECRCL 119.42 ml/min Normal 50-[address] [facility] Comment on above: Performed By: #### L 501.8400, L505.5000, L501.8300, L501.9100, L100.0100, L500.4050 ####[facility] [address] [place], [address] GAP 14 Normal 5-[address] [facility] Comment on above: Performed By: #### L 501.8400, L505.5000, L501.8300, L501.9100, L100.0100, L500.4050 ####[facility] [address] [place], [address] GFR/1.73 sq M.predicted among non-blacks MDRD (S/P/Bld) [Vol rate/Area] 80 mL/min/{1.73_m2} Normal >60 [facility] Comment on above: Result Comment: mL/m in/1.73m2 CKD-EPI Creatinine Equation (2020) Performed By: #### L 501.8400, L505.5000, L501.8300, L501.9100, L100.0100, L500.4050 ####[facility] [address] [place], [address] Globulin (S) [Mass/Vol] 2.0 g/dL Low 2.2-4.2 [facility] Comment on above: Performed By: #### L 501.8400, L505.5000, L501.8300, L501.9100, L100.0100, L500.4050 ####[facility] [address] [place], [address] Glucose [Mass/Vol] 161 mg/dL High 70-99 [facility] Comment on above: Performed By: #### L 501.8400, L505.5000, L501.8300, L501.9100, L100.0100, L500.4050 ####[facility] [address] [place], [address] Potassium [Moles/Vol] 3.4 mmol/L Normal 3.3-5.1 [facility] Comment on above: Performed By: #### L 501.8400, L505.5000, L501.8300, L501.9100, L100.0100, L500.4050 ####[facility] [address] [place], [address] Sodium [Moles/Vol] 136 mmol/L Normal 133-145 [facility] Comment on above: Performed By: #### L 501.8400, L505.5000, L501.8300, L501.9100, L100.0100, L500.4050 ####[facility] [address] [place], [address] T PROT 5.9 g/dL Normal 5.9-8.[address] [facility] Comment on above: Performed By: #### L 501.8400, L505.5000, L501.8300, L501.9100, L100.0100, L500.4050 ####[facility] [address] [place], [address] Urea nitrogen [Mass/Vol] 9 mg/dL Normal 4-[address] [facility] Comment on above: Performed By: #### L 501.8400, L505.5000, L501.8300, L501.9100, L100.0100, L500.4050 ####[facility] [address] [place], [address] Emergency Department Summary on 11-02-2024 Emergency Department Summary [facility] Medical Records Department [address] [place] [address] Emergency Department Summary 11/02/24 MR#: [id number] Acct: [id number] Name: AIMEE DUCKWORTH Rep #: [id number] : 1990 34 From: Tramaine Tovar MD PCP: Dr. Kamron Erickson MD Status:REG ER Location: ED HPI History of Present Illness Chief Complaint: Overdose Detail of Chief Complaint: Suicide attempt, took 6450 mg trazodone tablets 30 to 45 minutes PIECE HAND Informant: patient Onset/Context/Timing Onset: Hours Context: Sudden Onset Timing: Continuous Quality: Sleepy Location: Presents from home Mechanism/Context: Yes other Current Severity: Severe Maximum Severity: Severe Worsened by: Intentional overdose Relieved by: Not applicable Narrative Narrative: Patient is a 34-year-old male. He has history of depression. He intentionally took 6450 mg tablets of trazodone to harm himself. This was taken 30 to 45 minutes prior to arrival. Since his GC assess 15 he received 50 mg of activated charcoal. Nurse informing he vomited after arrival. She did not see pill fragments. He states he intended to harm himself. He now states he does not want to and wants me to save his life. Patient has attempted suicide in the past. Patient has been hospitalized for suicidal ideation/attempt. Patient is awake but not alert. He has no complaints at this time other than he does not want to . Prior similar symptoms: Yes Recent Illness/Hospitalizatio n: No PFSH PFSH Medical History Schizophrenia Migraines Asthma Schizophrenia Bipolar disorder Depression Anxiety Smoker Home Medications ???Medication ???Instructions ???Recorded ???Last Taken ???Type divalproex 500 mg tablet,delayed 500 mg PO BID 06/02/24 Unknown His tory release haloperidol 5 mg tablet 5 mg PO BID 08/03/24 Unknown Histo ry risperidone 200 mg/0.56 mL 200 mg subcut .Q2MON 08/03/24 Unkn own History subcutaneous extend release susp syringe (Uzedy) albuterol sulfate 90 mcg/actuation 1 - 2 puff inhalation Q4H PRN RI N 11/02/24 Unknown History aerosol inhaler cough trazodone 50 mg tablet 50 mg PO QHS 11/02/24 Unknown Hist ory Allergy/AdvReac Type Severity Reaction Status Date / Time Sulfa (Sulfonamide Allergy Unknown Verified 11/02/24 11:30 Antibiotics) sulfisoxazole (From Allergy Hives Verified 11/02/24 11:30 Gantrisin) Social History (System 06/10/24 @ 07:12 by Fernanda Roblero) household members: family Smoking Status: Current every day smoker tobacco type: cigarettes and e-cigarettes ROS ROS ED Constitutional Constitutional ED: Denies chills, fever(s), subjective or sweats Eyes Eyes: Reports blurry vision ENT ENT ED: Denies ear pain, rhinorrhea or sore throat Cardiovascular Cardiovascular: Denies chest pain or palpitations Respiratory/Chest Respiratory/Chest: Denies cough, dyspnea or dyspnea on exertion Gastrointestinal Gastrointestinal: Reports nausea and vomiting; Denies abdominal pain, constipation, diarrhea or melena Genitourinary Genitourinary ED: Denies dysuria, hematuria or urinary frequency Musculoskeletal Musculoskeletal: Denies arthralgias or myalgias Integumentary Reports rash Neurologic Neurologic: Denies headache(s) or paresthesias Psychiatric Psychiatric: Reports anxiety, depression, suicidal ideation and suicidal thoughts Hematologic/Lymphatic Hematologic/Lymphatic: Denies easy bruising EXAM Physical Exam Const Vital Signs: 11/02/24 11:24 11/02/24 12:23 Temperature 97.7 F L Temperature Source Oral Pulse Rate 67 74 Respiratory Rate 14 18 Blood Pressure 105/64 117/78 Blood Pressure Mean 77 91 Pulse Ox 94 98 Oxygen Delivery Method Room Air Positive well nourished and well developed Constitutional Narrative: BMI is 39.2. He appears no distress. He opens his eyes to verbal. He states he does not want to any longer. General Appearance ED: well developed; Negative for pallor HEENT normocephalic and atraumatic; Negative for cyanosis of lips/distal nose or tenderness Eyes PERRL and EOMs intact bilaterally Eyes Narrative: There is no nystagmus. General Eye ED: Negative for pale conjunctiva or scleral icterus Neck full ROM, no lymphadenopathy and supple Cardio regular rate, regular rhythm, S1 normal heart sound, S2 normal heart sound and no murmurs GI non-tender, non-distended and no masses Auscultation: normoactive bowel sounds Palpation: soft Back/Spine no CVA tenderness Neuro oriented x3, CN's II-XII intact bilaterally and no sensory deficits noted Neuro Narrative: Gait was not tested. Has no dysmetria. There is no clonus Babinski sign. Sensorium / Orientation: Negative for alert Psych Mood Affect: depressed Skin Skin Narrative: Blanching erythematous rash face and up (more content not included)... Normal [facility] Eosinophil percentageOrdered By: Tramaine Tovar on 11-02-2024 Eosinophils/100 WBC (Bld) 2.1 % 0-[address] [facility] Erythrocyte distribution wid th ratioOrdered By: Tramaine Tovar on 11-02-2024 Erythrocyte distribution width (RBC) [Ratio] 13.5 % 11.6-14.[address] [facility] Erythrocyte distribution wid th standard deviationOrdered By: Tramaine Tovar on 11-02-2024 Erythrocyte distribution width (RBC) [Entitic vol] 46.1 fL High 35.1-43.9 [facility] Estimation of creatinine vick aranceOrdered By: Tramaine Tovar on 11-02-2024 Estimated Creatinine Clearance Calc 119.42 ml/min 50-[address] [facility] Ethanol [Mass/Vol]Ordered By : Tramaine Tovar on 11-02-2024 Ethyl Alcohol Level < 10.1 mg/dL <10.1 [facility] Comment on above: This test is for med ical purposes only. The legal definition of intoxication varies according to local law. GFR/1.73 sq M.predicted lana g non-blacks MDRD (S/P/Bld) [Vol rate/Area]Ordered By: Tramaine Tovar on 11-02-2024 Estimated GFR (MDRD) Non-Af Amer 80 >[address] [facility] Comment on above: mL/min/1.73m2 CKD-EP I Creatinine Equation (2020) H AND P Exam - [place] 11-02-2024 H&P Exam - Hospitalist [facility] Medical Records Department [address] [place] [address] H P Exam - Hospitalist 11/02/24 1306 MR#: [id number] Acct: [id number] Name: AIMEE DUCKWORTH Rep #: [id number] : 1990 34 From: Román Sandoval MD PCP: Dr. Kamron Erickson MD Status:REG ER Location: ED HPI - General General Date of Admission: 11/02/24 Date of Service: 11/02/24 Chief Complaint: Intentional drug overdose HPI Narrative AIMEE DUCKWORTH, is a 34 M with past medical history significant for schizophrenia, bipolar disorder depression with anxiety, mild intermittent asthma who presented to the emergency department following an intentional drug overdose. Patient had apparently taken 64 tablets of 50 mg of trazodone in an attempt to harm himself. Patient however admitted to not being suicidal at the time of my assessment in the emergency department. Initial workup did reveal prolonged QT C of 488. Patient did receive activated charcoal and admitted to the intensive care unit for further management. PFSH Medical History Schizophrenia Migraines Asthma Schizophrenia Bipolar disorder Depression Anxiety Smoker Home Medications ???Medication ???Instructions ???Recorded ???Last Taken ???Type divalproex 500 mg tablet,delayed 1,000 mg PO BID 06/02/24 11/02/24 History release albuterol sulfate 90 mcg/actuation 1 - 2 puff inhalation Q4H PRN co ugh 11/02/24 Unknown History aerosol inhaler bupropion HCl 300 mg 24 hr tablet, 300 mg PO DAILY 11/02/24 5 History extended release escitalopram oxalate 20 mg tablet 20 mg PO DAILY 11/02/24 11/02/24 History lorazepam 1 mg tablet 1 mg PO BID 11/02/24 Unknown Histo ry paliperidone palmitate 234 mg/1.5 234 mg IM Q30D 11/02/24 10/09/24 History mL intramuscular syringe (Invega Sustenna) trazodone 50 mg tablet 50 mg PO QHS 11/02/24 Unknown Hist ory Allergy/AdvReac Type Severity Reaction Status Date / Time Sulfa (Sulfonamide Allergy Unknown Verified 11/02/24 11:30 Antibiotics) sulfisoxazole (From Allergy Hives Verified 11/02/24 11:30 Gantrisin) Social History (System 06/10/24 @ 07:12 by Fernanda Roblero) household members: family Smoking Status: Current every day smoker tobacco type: cigarettes and e-cigarettes ROS ROS Narrative GENERAL: denies fever, chills, HEENT: denies headache, sinus congestion, RESPIRATORY: denies cough, sputum production, CARDIAC: denies chest pain, palpitations, GASTROINTESTINAL: denies abdominal pain, nausea, GENITOURINARY: denies dysuria, urgency, EXTREMITY: denies swelling MUSCULOSKELETAL: denies current joint pain NEUROLOGIC: denies focal numbness, HEMATOLOGIC: denies easy bruising INTEGUMENT: denies rashes PSYCHIATRIC: suicidal Vital Signs Vital Signs Vital Signs: 11/02/24 11:24 11/02/24 12:23 11/02/24 13:00 Temperature 97.7 F L Temperature Source Oral Pulse Rate 67 74 87 Respiratory Rate 14 18 16 Blood Pressure 105/64 117/78 107/78 Blood Pressure Mean 77 91 87 Pulse Ox 94 98 98 Oxygen Delivery Method Room Air Weight Weight: 131 kg Body Mass Index (BMI) 39.2 Physical Exam Narrative GENERAL: Somewhat somnolent but able to maintain a conversation HEENT: Atraumatic; normocephalic EYES; Anicteric, Normal Conjunctiva NECK; supple, normal thyroid, RESPIRATORY: Diminished to auscultation CARDIOVASCULAR: Regular S1 S2, GI: soft, normoactive bowel sounds, : No Renal angle tenderness; EXTREMITIES: No edema, no clubbing, MUSCULOSKELETAL: no muscle wasting NEURO: Awake; no lateralizing signs. SKIN: No Rash PSYCH; Flat affect Results Lab / Micro Data 11/02/24 11:35 11/02/24 11:35 Labs: Laboratory Results - last 24 hr 11/02/24 11:35: WBC 9.2, RBC 4.34 L, Hgb 13.6, Hct 40.5, MCV 93.3, MCH 31.3, MCHC 33.6, RDW Std Deviation 46.1 H, RDW Coeff of Rohith 13.5, Plt Count 197, MPV 9.5, Immature Gran % (Auto) 0.400, Neut % (Auto) 54.1, Lymph % (Auto) 24.9, [place] % (Auto) 18.0 H, Eos % (Auto) 2.1, Baso % (Auto) 0.5, Absolute Neuts (auto) 5.0, Absolute Lymphs (auto) 2.30, Nucleated RBC % 0, Differential Comment SCANNED, Sodium 136, Potassium 3.4, Chloride 99, Carbon Dioxide 23.4, Anion Gap 14, BUN 9, C reatinine 1.22 H, Estim Creat Clear Calc 119.42, Est GFR (MDRD) Non-Af 80, BUN/Creatinine Ratio 7.4 L, Glucose 161 H, Calcium 8.0, Total Bilirubin 0.15, AST 24, ALT 21, Alkaline Phosphatase 74, Total Protein 5.9, Albumin 3.9, Globulin 2.0 L, Albumin/Globulin Ratio 2.0, Salicylates 1.8 L, Acetaminophen 10.5, Ethyl Alcohol < 10.1 Assessment Plan Assessment/Plan (1) Prolonged QT interval: (2) Intentional overdose of trazodone: PLAN: Plan Patient is a 34-year-old gentleman admitted with intentional drug overdose 1. Intentional drug overdose with trazodone ??? Patient (more content not included)... Normal [facility] Hematocrit Auto (Bld) [Volum e fraction]Ordered By: Tramaine Tovar on 11-02-2024 Hematocrit (Bld) [Volume fraction] 40.5 % 40-[address] [facility] Hemoglobin measurementOrdere d By: Tramainedelia Tovar on 11-02-2024 Hemoglobin (Bld) [Mass/Vol] 13.6 g/dL 13.0-16. [address] [facility] Immature granulocytes/100 WB C Auto (Bld)Ordered By: Tramainedelia Tovar on 11-02-2024 Immature granulocytes/100 WBC (Bld) 0.400 % 0.0-0.[address] [facility] Comment on above: IG% - Immature Granu locytes (promyelocytes, myelocytes and metamyelocytes) > 1% indicates that a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 & GFRAA in patients over 70 years has not been determined. Clinical correlation is essential. Serum or plasma urea nitroge n measurement (mass/volume)Ordered By: Rodriguez Beavers on 08-03-2024 Urea nitrogen [Mass/Vol] 12 mg/dL 7-[address] [facility] Sodium levelOrdered By: Melony Beavers on 08-03-2024 Sodium [Moles/Vol] 141 mmol/L 136-145 [facility] Urine Drug Screen (VISTA)on 08-03-2024 AMPHETAMINES Negative Normal <1000 ng/mL [facility] Comment on above: Performed By: #### L 500.2500, L501.9100, L100.0100, L505.5000 #### [facility] [address] [place], [address] BARBITIURATES Negative Normal < 200 ng/mL [facility] Comment on above: Performed By: #### L 500.2500, L501.9100, L100.0100, L505.5000 #### [facility] [address] [place], [address] BENZODIAZIPINE Negative Normal < 200 ng/mL [facility] Comment on above: Performed By: #### L 500.2500, L501.9100, L100.0100, L505.5000 #### [facility] [address] [place], [address] COCAINE Negative Normal < 300 ng/mL [facility] Comment on above: Performed By: #### L 500.2500, L501.9100, L100.0100, L505.5000 #### [facility] [address] [place], [address] ECSTACY Negative Normal < 500 ng/mL [facility] Comment on above: Performed By: #### L 500.2500, L501.9100, L100.0100, L505.5000 #### [facility] [address] [place], [address] METHADONE Negative Normal < 300 ng/mL [facility] Comment on above: Performed By: #### L 500.2500, L501.9100, L100.0100, L505.5000 #### [facility] [address] [place], [address] OPIATES Negative Normal < 300 ng/mL [facility] Comment on above: Performed By: #### L 500.2500, L501.9100, L100.0100, L505.5000 #### [facility] [address] [place], [address] PCP Negative Normal < 25 ng/mL [facility] Comment on above: Performed By: #### L 500.2500, L501.9100, L100.0100, L505.5000 #### [facility] [address] [place], [address] THC Negative Normal < 50 ng/mL [facility] Comment on above: Performed By: #### L 500.2500, L501.9100, L100.0100, L505.5000 #### [facility] [address] [place], [place], [address] VISTA UDS PH [address] [facility] Comment on above: Performed By: #### L 500.2500, L501.9100, L100.0100, L505.5000 #### [facility] [address] [place], [place], [address] Urine amphetamine measuremen tOrdered By: Rodriguez Beavers on 08-03-2024 Amphetamines Ql (U) Negative <1000 ng/mL [facility] Urine barbiturates measureme ntOrdered By: Rodriguez Beavers on 08-03-2024 Urine Barbiturates Screen Negative < 200 ng/mL [facility] Urine benzodiazepine levelOr dered By: Rodriguez Beavers on 08-03-2024 Benzodiazepines Ql (U) Negative < 200 ng/mL [facility] Urine cocaine levelOrdered B y: Rodriguez Beavers on 08-03-2024 Cocaine Ql (U) Negative < 300 ng/mL [facility] Urine [id number] abinol (THC) measurementOrdered By: Rodriguez Beavers on 08-03-2024 Cannabinoids Screen Ql (U) Negative < 50 ng/m L [facility] Urine methylenedioxymethamph etamine (MDMA) measurementOrdered By: Rodriguez Beavers on 08-03-2024 MDMA (Ecstasy) Screen Negative < 500 ng/mL [facility] Urine phencyclidine (PCP) de tectionOrdered By: Rodriguez Beavers on 08-03-2024 Phencyclidine Ql (U) Negative < 25 ng/mL [facility] White blood cell (WBC) count Ordered By: Rodriguez Beavers on 08-03-2024 WBC (Bld) [#/Vol] 9.5 10*3/uL 4.4-11.0 [facility] Alcohol, Blood (Medical)-Ser umon 06-02-2024 SERUM ETOH < 3.[address] [facility] Comment on above: Result Comment: The serum:whole blood ethanol ratio is approximately 1.14 and varies slightly with hematocrit. Medical Alcohol reference interval and critical value in non-tolerant individuals; 50 - 100 Impairment 100 Intoxication 100 - 250 Severe Poisoning 250 - 400 Deep/possible fatal coma Performed By: #### L 501.9100, L500.2500, L100.0100, L505.5000 #### [facility] [address] [place], [address] Basic Metabolic Profile (BMP )on 06-02-2024 BUN/CRE 8.9 RATIO Low 10-[address] [facility] Comment on above: Performed By: #### L 501.9100, L500.2500, L100.0100, L505.5000 ####[facility] [address] [place], [address] CA,Total 8.3 mg/dL Low 8.5-10.[address] [facility] Comment on above: Performed By: #### L 501.9100, L500.2500, L100.0100, L505.5000 ####[facility] [address] [place], [address] Chloride [Moles/Vol] 105 mmol/L Normal 98-107 [facility] Comment on above: Performed By: #### L 501.9100, L500.2500, L100.0100, L505.5000 ####[facility] [address] [place], [address] CO2 [Moles/Vol] 28.0 mmol/L Normal 21.0-32.[address] [facility] Comment on above: Performed By: #### L 501.9100, L500.2500, L100.0100, L505.5000 ####[facility] [address] [place], [address] Creatinine [Mass/Vol] 1.01 mg/dL Normal 0.70-1.30 [facility] Comment on above: Result Comment: The validity of the calculated GFR GFRAA in patients over 70 years has not been determined. Clinical correlation is essential. Performed By: #### L 501.9100, L500.2500, L100.0100, L505.5000 ####[facility] [address] [place], [address] ECRCL 138.80 ml/min Normal [facility] Comment on above: Performed By: #### L 501.9100, L500.2500, L100.0100, L505.5000 ####[facility] [address] [place], [address] EST GFR - AA 109 mL/min Normal >[address] [facility] Comment on above: Result Comment: Afri can Macedonian GFR Calc Performed By: #### L 501.9100, L500.2500, L100.0100, L505.5000 ####[facility] [address] [place], [address] GAP 6 Normal 5-[address] [facility] Comment on above: Performed By: #### L 501.9100, L500.2500, L100.0100, L505.5000 ####[facility] [address] [place], [address] GFR/1.73 sq M.predicted among non-blacks MDRD (S/P/Bld) [Vol rate/Area] 90 mL/min/{1.73_m2} Normal >60 [facility] Comment on above: Result Comment: Non- GFR Calc Performed By: #### L 501.9100, L500.2500, L100.0100, L505.5000 ####[facility] [address] [place], [address] Glucose [Mass/Vol] 121 mg/dL High 74-106 [facility] Comment on above: Result Comment: Fast ing Glucose result from 100 to 125 mg/dL suggests IMPAIRED HOMEOSTASIS per A.D.A. criteria. Performed By: #### L 501.9100, L500.2500, L100.0100, L505.5000 ####[facility] [address] [place], [address] Potassium [Moles/Vol] 3.2 mmol/L Low 3.5-5.1 [facility] Comment on above: Performed By: #### L 501.9100, L500.2500, L100.0100, L505.5000 ####[facility] [address] [place], [address] Sodium [Moles/Vol] 139 mmol/L Normal 136-145 [facility] Comment on above: Performed By: #### L 501.9100, L500.2500, L100.0100, L505.5000 ####[facility] [address] [place], [address] Urea nitrogen [Mass/Vol] 9 mg/dL Normal 7-[address] [facility] Comment on above: Performed By: #### L 501.9100, L500.2500, L100.0100, L505.5000 ####[facility] [address] [place], [address] CBC W/Diff, Automatedon 10-3 0-2024 Absolute Lymph 2.89 X10 3/uL Normal 0.83-4.[address] [facility] Comment on above: Performed By: #### L 501.9100, L500.2500, L100.0100, L505.5000 #### [facility] [address] [place], [address] Absolute Neut 5.1 X10 3/uL Normal 2.0-7.[address] [facility] Comment on above: Performed By: #### L 501.9100, L500.2500, L100.0100, L505.5000 #### [facility] [address] [place], [address] Basophils/100 WBC (Bld) 0.6 % Normal 0-1 [facility] Comment on above: Performed By: #### L 501.9100, L500.2500, L100.0100, L505.5000 #### [facility] [address] [place], [address] Eosinophils/100 WBC (Bld) 4.5 % Normal 0-[address] [facility] Comment on above: Performed By: #### L 501.9100, L500.2500, L100.0100, L505.5000 #### [facility] [address] [place], [address] Erythrocyte distribution width (RBC) [Ratio] 13.6 % Normal 11.6-14.[address] [facility] Comment on above: Performed By: #### L 501.9100, L500.2500, L100.0100, L505.5000 #### [facility] [address] [place], [address] Hematocrit (Bld) [Volume fraction] 39.2 % Low 40-[address] [facility] Comment on above: Performed By: #### L 501.9100, L500.2500, L100.0100, L505.5000 #### [facility] [address] [place], [address] Hemoglobin (Bld) [Mass/Vol] 12.7 g/dL Low 13.0-16. [address] [facility] Comment on above: Performed By: #### L 501.9100, L500.2500, L100.0100, L505.5000 #### [facility] [address] [place], [address] IG% 0.300 Normal 0.0-0.[address] [facility] Comment on above: Result Comment: IG% - Immature Granulocytes (promyelocytes, myelocytes and metamyelocytes) > 1% indicates that a LEFT SHIFT is Present. Performed By: #### L 501.9100, L500.2500, L100.0100, L505.5000 #### [facility] [address] [place], [address] Lymphocytes/100 WBC (Bld) 30.8 % Normal 19-[address] [facility] Comment on above: Performed By: #### L 501.9100, L500.2500, L100.0100, L505.5000 #### [facility] [address] [place], [address] MCH (RBC) [Entitic mass] 29.7 pg Normal 27.0-32.[address] [facility] Comment on above: Performed By: #### L 501.9100, L500.2500, L100.0100, L505.5000 #### [facility] [address] [place], [address] MCHC (RBC) [Mass/Vol] 32.4 g/dL Normal 32-36 [facility] Comment on above: Performed By: #### L 501.9100, L500.2500, L100.0100, L505.5000 #### [facility] [address] [place], [address] MCV (RBC) [Entitic vol] 91.8 fL Normal 80-94 [facility] Comment on above: Performed By: #### L 501.9100, L500.2500, L100.0100, L505.5000 #### [facility] [address] [place], [address] Monocytes/100 WBC (Bld) 9.1 % Normal 0-10 [facility] Comment on above: Performed By: #### L 501.9100, L500.2500, L100.0100, L505.5000 #### [facility] [address] [place], [address] Neutrophils/100 WBC (Bld) 54.7 % Normal 47-[address] [facility] Comment on above: Performed By: #### L 501.9100, L500.2500, L100.0100, L505.5000 #### [facility] [address] [place], [address] Nucleated RBC (Bld) [#/Vol] 0 10*3/uL Normal 0-[address] [facility] Comment on above: Performed By: #### L 501.9100, L500.2500, L100.0100, L505.5000 #### [facility] [address] [place], [address] Platelet mean volume (Bld) [Entitic vol] 9.0 fL Normal 6.2-12.[address] [facility] Comment on above: Performed By: #### L 501.9100, L500.2500, L100.0100, L505.5000 #### [facility] [address] [place], [address] Platelets (Bld) [#/Vol] 298 10*3/uL Normal 150-[address] [facility] Comment on above: Performed By: #### L 501.9100, L500.2500, L100.0100, L505.5000 #### [facility] [address] [place], [address] RBC (Bld) [#/Vol] 4.27 10*6/uL Low 4.6-6.2 [facility] Comment on above: Performed By: #### L 501.9100, L500.2500, L100.0100, L505.5000 #### [facility] [address] [place], [address] RDW SD 46.2 fl High 35.1-43.[address] [facility] Comment on above: Performed By: #### L 501.9100, L500.2500, L100.0100, L505.5000 #### [facility] [address] [place], [address] WBC (Bld) [#/Vol] 9.4 10*3/uL Normal 4.4-11.0 [facility] Comment on above: Performed By: #### L 501.9100, L500.2500, L100.0100, L505.5000 #### [facility] [address] [place], [address] Emergency Department Summary on 06-02-2024 Emergency Department Summary [facility] Medical Records Department [address] [place] [address] Emergency Department Summary 06/02/24 MR#: [id number] Acct: [id number] Name: AIMEE DUCKWORTH Rep #: [id number] : 1990 33 From: Diomedes York DO PCP: Dr. Kamron Erickson MD Status:DEP ER Location: ED HPI History of Present Illness Chief Complaint: Mental Health Informant: patient and police/top lifter Narrative Narrative: Patient is a 33-year-old male with past medical history of bipolar and schizophrenia. Police were called to his house this evening because he thought that there were people outside trying to break into his house. During this delusional event he also took a knife and threatened to harm members of his family who are staying in the same house. 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 Upon arrival to the hospital the patient does admit to seeing people outside his house but states that he has done this in the past. He states that he has had to be admitted to a psychiatric hospital for similar event. He states that his been a few years since his last admission and he denies any homicidal or suicidal ideation alcohol use or illicit drug use at this time. The patient also denies any potential threat towards family members as documented by the police [facility] Medical History Schizophrenia Bipolar disorder Depression Anxiety Smoker Home Medications ???Medication ???Instructions ???Recorded ???Last Taken ???Type atomoxetine 25 mg capsule 25 mg PO DAILY 06/02/24 Unknown History atomoxetine 40 mg capsule PO 10/30/24 Unknown History benztropine 1 mg tablet 1 mg PO BID 06/02/24 Unknown History bupropion HCl 300 mg 24 hr tablet, 300 mg PO DAILY 06/02/24 Unknown History extended release divalproex 500 mg tablet,delayed 500 mg PO BID 06/02/24 Unknown History release escitalopram oxalate 20 mg tablet 20 mg PO DAILY 06/02/24 Unknown History gabapentin 300 mg capsule 300 mg PO DAILY PRN 06/02/24 Unknown History haloperidol 2 mg PO DAILY 06/02/24 Unknown History haloperidol 2 mg tablet 2 mg PO BID 06/02/24 Unknown History nabumetone 500 mg tablet 500 mg PO BID 06/02/24 Unknown History nicotine (polacrilex) 2 mg gum 2 mg PO Q2H PRN PRN nicotine 06/02/24 Unknown History cravings risperidone 120 mg subcutaneous 120 mg subcut 06/02/24 Unknown History extended release suspension syringe (Perseris) Allergy/AdvReac Type Severity Reaction Status Date / Time Sulfa (Sulfonamide AdvReac Intermediate Rash Verified 06/02/24 01:48 Antibiotics) Social History Smoking Status: Current every day smoker tobacco type: e-cigarettes ROS ROS ED Constitutional Constitutional ED: Denies chills or fever(s) Eyes Eyes: Denies blurry vision or change in vision ENT ENT ED: Denies sore throat Cardiovascular Cardiovascular: Denies chest pain Respiratory/Chest Respiratory/Chest: Denies cough or dyspnea Gastrointestinal Gastrointestinal: Denies abdominal pain, diarrhea, nausea or vomiting Genitourinary Genitourinary ED: Denies dysuria Musculoskeletal Musculoskeletal: Denies myalgias Integumentary Denies rash Neurologic Neurologic: Denies headache(s) Psychiatric Psychiatric: Denies suicidal ideation or suicidal thoughts Hematologic/Lymphatic Hematologic/Lymphatic: Denies easy bleeding or easy bruising EXAM Physical Exam Const Vital Signs: 06/02/24 01:36 06/02/24 03:35 Temperature 98.4 F Temperature Source Oral Pulse Rate 112 H 105 H Respiratory Rate 16 18 Blood Pressure 147/97 H 124/91 H Blood Pressure Mean 113 102 Pulse Ox 97 98 Oxygen Delivery Method Room Air Room Air Positive well nourished, well developed and obese General Appearance ED: well developed; Negative for pallor Nutritional Appearance: obese HEENT HEENT Narrative: No signs of infection noted in posterior pharynx Normocephalic atraumatic Eyes PERRL and EOMs intact bilaterally General Eye ED: Negative for scleral icterus Neck supple Neck Narrative: No nuchal rigidity or meningeal signs Resp normal respiratory effort and clear to auscultation bilaterally Cardio regular rhythm Rate: tachycardic and other Other Details: Slightly tachycardic rate with regular rhythm No murmurs rubs or gallop Radial and carotid pulses are equal and symmetric GI normal to inspection, nondistended, normoactive bowel sounds, non-tender, non-distended and no masses GI Narrative: No voluntary guarding or rigidity or pulsatile mass Auscultation: normoactive bowel sounds Palpation: soft Extremity normal to inspection Extremity Narrative: No asymmetric edema no pitting edema negative Homans' sign bila (more content not included)... Normal [facility] Urinalysis, Completeon 06-02 BACTERIA 0 SEEN Normal None Seen [facility] Comment on above: Order Comment: CIPRIANO CTOR TO SPECIFY Performed By: #### L 500.2500, L501.9100, L100.0100, L505.5000 #### [facility] [address] [place], [address] EPI,SQUAMOUS 0 SEEN Normal 0-[address] [facility] Comment on above: Order Comment: CIPRIANO CTOR TO SPECIFY Performed By: #### L 500.2500, L501.9100, L100.0100, L505.5000 #### [facility] [address] [place], [address] Mucus Ql (Urine sed) 0 SEEN Normal [facility] Comment on above: Order Comment: CIPRIANO CTOR TO SPECIFY Performed By: #### L 500.2500, L501.9100, L100.0100, L505.5000 #### [facility] [address] [place], [address] RBC 0 SEEN Normal 0-[address] [place] [address] Comment on above: Order Comment: CIPRIANO CTOR TO SPECIFY Performed By: #### L 500.2500, L501.9100, L100.0100, L505.5000 #### [facility] [address] [place], [address] WBC 0 SEEN Normal 0-[address] [facility] Comment on above: Order Comment: COLLE CTOR TO SPECIFY Performed By: #### L 500.2500, L501.9100, L100.0100, L505.5000 #### [facility] [address] [place], [address] Urine Drug Screen (VISTA)on 06-02-2024 AMPHETAMINES Negative Normal <1000 ng/mL [facility] Comment on above: Performed By: #### L 501.9100, L500.2500, L100.0100, L505.5000 ####[facility] [address] [place], [address] BARBITIURATES Negative Normal < 200 ng/mL [facility] Comment on above: Performed By: #### L 501.9100, L500.2500, L100.0100, L505.5000 ####[facility] [address] [place], [address] BENZODIAZIPINE Negative Normal < 200 ng/mL [facility] Comment on above: Performed By: #### L 501.9100, L500.2500, L100.0100, L505.5000 ####[facility] [address] [place], [address] COCAINE Negative Normal < 300 ng/mL [facility] Comment on above: Performed By: #### L 501.9100, L500.2500, L100.0100, L505.5000 ####[facility] [address] [place], [address] ECSTACY Positive Abnormal < 500 ng/mL [facility] Comment on above: Performed By: #### L 501.9100, L500.2500, L100.0100, L505.5000 ####[facility] [address] [place], [address] METHADONE Negative Normal < 300 ng/mL [facility] Comment on above: Performed By: #### L 501.9100, L500.2500, L100.0100, L505.5000 ####[facility] [address] [place], [address] OPIATES Negative Normal < 300 ng/mL [facility] Comment on above: Performed By: #### L 501.9100, L500.2500, L100.0100, L505.5000 ####[facility] [address] [place], [address] PCP Negative Normal < 25 ng/mL [facility] Comment on above: Performed By: #### L 501.9100, L500.2500, L100.0100, L505.5000 ####[facility] [address] [place], [address] THC Negative Normal < 50 ng/mL [facility] Comment on above: Performed By: #### L 501.9100, L500.2500, L100.0100, L505.5000 ####[facility] [address] [place], [address] VISTA UDS PH [address] [facility] Comment on above: Performed By: #### L 501.9100, L500.2500, L100.0100, L505.5000 ####[facility] [address] [place], [address] Valproic Acid (Depakene) Lev kerri 06-02-2024 VALPROIC ACID < 3 Low 50-[address] [facility] Comment on above: Performed By: #### L 501.8100 #### [facility] [address] [place], [address] Alcohol, Blood (Medical)-Ser umon 04-25-2024 SERUM ETOH 5.0 mg/dL Normal [facility] Comment on above: Result Comment: The serum:whole blood ethanol ratio is approximately 1.14 and varies slightly with hematocrit. Medical Alcohol reference interval and critical value in non-tolerant individuals; 50 - 100 Impairment 100 Intoxication 100 - 250 Severe Poisoning 250 - 400 Deep/possible fatal coma Performed By: #### L 100.0100, L505.5000, L500.2500, L501.9100 ####[facility] [address] [place], [address] Basic Metabolic Profile (BMP )on 04-25-2024 BUN/CRE 10.0 RATIO Normal 10-[address] [facility] Comment on above: Performed By: #### L 100.0100, L505.5000, L500.2500, L501.9100 ####[facility] [address] [place], [address] CA,Total 8.3 mg/dL Low 8.5-10.[address] [facility] Comment on above: Performed By: #### L 100.0100, L505.5000, L500.2500, L501.9100 ####[facility] [address] [place], [address] Chloride [Moles/Vol] 102 mmol/L Normal 98-107 [facility] Comment on above: Performed By: #### L 100.0100, L505.5000, L500.2500, L501.9100 ####[facility] [address] [place], [address] CO2 [Moles/Vol] 28.0 mmol/L Normal 21.0-32.[address] [facility] Comment on above: Performed By: #### L 100.0100, L505.5000, L500.2500, L501.9100 ####[facility] [address] [place], [address] Creatinine [Mass/Vol] 1.10 mg/dL Normal 0.70-1.30 [facility] Comment on above: Result Comment: The validity of the calculated GFR GFRAA in patients over 70 years has not been determined. Clinical correlation is essential. Performed By: #### L 100.0100, L505.5000, L500.2500, L501.9100 ####[facility] [address] [place], [address] ECRCL 124.08 ml/min Normal [facility] Comment on above: Performed By: #### L 100.0100, L505.5000, L500.2500, L501.9100 ####[facility] [address] [place], [address] EST GFR - AA 99 mL/min Normal >[address] [facility] Comment on above: Result Comment: Afri can Macedonian GFR Calc Performed By: #### L 100.0100, L505.5000, L500.2500, L501.9100 ####[facility] [address] [place], [address] GAP 6 Normal 5-[address] [facility] Comment on above: Performed By: #### L 100.0100, L505.5000, L500.2500, L501.9100 ####[facility] [address] [place], [address] GFR/1.73 sq M.predicted among non-blacks MDRD (S/P/Bld) [Vol rate/Area] 82 mL/min/{1.73_m2} Normal >60 [facility] Comment on above: Result Comment: Non- GFR Calc Performed By: #### L 100.0100, L505.5000, L500.2500, L501.9100 ####[facility] [address] [place], [address] Glucose [Mass/Vol] 118 mg/dL High 74-106 [facility] Comment on above: Result Comment: Fast ing Glucose result from 100 to 125 mg/dL suggests IMPAIRED HOMEOSTASIS per A.D.A. criteria. Performed By: #### L 100.0100, L505.5000, L500.2500, L501.9100 ####[facility] [address] [place], [address] Potassium [Moles/Vol] 3.3 mmol/L Low 3.5-5.1 [facility] Comment on above: Performed By: #### L 100.0100, L505.5000, L500.2500, L501.9100 ####[facility] [address] [place], [address] Sodium [Moles/Vol] 136 mmol/L Normal 136-145 [facility] Comment on above: Performed By: #### L 100.0100, L505.5000, L500.2500, L501.9100 ####[facility] [address] [place], [address] Urea nitrogen [Mass/Vol] 11 mg/dL Normal 7-[address] [facility] Comment on above: Performed By: #### L 100.0100, L505.5000, L500.2500, L501.9100 ####[facility] [address] [place], [address] CBC W/Diff, Automatedon 04-05-2023 Absolute Lymph 3.12 X10 3/uL Normal 0.83-4.[address] [facility] Comment on above: Performed By: #### L 100.0100, L505.5000, L500.2500, L501.9100 ####[facility] [address] [place], [address] Absolute Neut 6.4 X10 3/uL Normal 2.0-7.[address] [facility] Comment on above: Performed By: #### L 100.0100, L505.5000, L500.2500, L501.9100 ####[facility] [address] [place], [address] Basophils/100 WBC (Bld) 0.6 % Normal 0-1 [facility] Comment on above: Performed By: #### L 100.0100, L505.5000, L500.2500, L501.9100 ####[facility] [address] [place], [address] Eosinophils/100 WBC (Bld) 2.3 % Normal 0-[address] [facility] Comment on above: Performed By: #### L 100.0100, L505.5000, L500.2500, L501.9100 ####[facility] [address] [place], [address] Erythrocyte distribution width (RBC) [Ratio] 13.2 % Normal 11.6-14.[address] [facility] Comment on above: Performed By: #### L 100.0100, L505.5000, L500.2500, L501.9100 ####[facility] [address] [place], [address] Hematocrit (Bld) [Volume fraction] 39.3 % Low 40-[address] [facility] Comment on above: Performed By: #### L 100.0100, L505.5000, L500.2500, L501.9100 ####[facility] [address] [place], [address] Hemoglobin (Bld) [Mass/Vol] 12.6 g/dL Low 13.0-16. [address] [facility] Comment on above: Performed By: #### L 100.0100, L505.5000, L500.2500, L501.9100 ####[facility] [address] [place], [address] IG% 0.300 Normal 0.0-0.[address] [facility] Comment on above: Result Comment: IG% - Immature Granulocytes (promyelocytes, myelocytes and metamyelocytes) > 1% indicates that a LEFT SHIFT is Present. Performed By: #### L 100.0100, L505.5000, L500.2500, L501.9100 ####[facility] [address] [place], [address] Lymphocytes/100 WBC (Bld) 29.8 % Normal 19-[address] [facility] Comment on above: Performed By: #### L 100.0100, L505.5000, L500.2500, L501.9100 ####[facility] [address] [place], [address] MCH (RBC) [Entitic mass] 29.5 pg Normal 27.0-32.[address] [facility] Comment on above: Performed By: #### L 100.0100, L505.5000, L500.2500, L501.9100 ####[facility] [address] [place], [address] MCHC (RBC) [Mass/Vol] 32.1 g/dL Normal 32-36 [facility] Comment on above: Performed By: #### L 100.0100, L505.5000, L500.2500, L501.9100 ####[facility] [address] [place], [address] MCV (RBC) [Entitic vol] 92.0 fL Normal 80-94 [facility] Comment on above: Performed By: #### L 100.0100, L505.5000, L500.2500, L501.9100 ####[facility] [address] [place], [address] Monocytes/100 WBC (Bld) 6.3 % Normal 0-10 [facility] Comment on above: Performed By: #### L 100.0100, L505.5000, L500.2500, L501.9100 ####[facility] [address] [place], [address] Neutrophils/100 WBC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 Date: 02/03/24Order Info: [id number] - CBC Performed By: #### L 100.0500, L7000.5300, L500.4050 ####[facility] [address] [place], [address] MCHC (RBC) [Mass/Vol] 31.5 g/dL Low 32-36 [facility] Comment on above: Order Comment: Order Date: 02/03/24Order Info: [id number] - CBC Performed By: #### L 100.0500, L7000.5300, L500.4050 ####[facility] [address] [place], [address] MCV (RBC) [Entitic vol] 94.7 fL High 80-94 [facility] Comment on above: Order Comment: Order Date: 02/03/24Order Info: [id number] - CBC Performed By: #### L 100.0500, L7000.5300, L500.4050 ####[facility] [address] [place], [address] Platelet mean volume (Bld) [Entitic vol] 9.1 fL Normal 6.2-12.[address] [facility] Comment on above: Order Comment: Order Date: 02/03/24Order Info: [id number] - CBC Performed By: #### L 100.0500, L7000.5300, L500.4050 ####[facility] [address] [place], [address] Platelets (Bld) [#/Vol] 363 10*3/uL Normal 150-[address] [facility] Comment on above: Order Comment: Order Date: 02/03/24Order Info: [id number] - CBC Performed By: #### L 100.0500, L7000.5300, L500.4050 ####[facility] [address] [place], [address] RBC (Bld) [#/Vol] 3.99 10*6/uL Low 4.6-6.2 [facility] Comment on above: Order Comment: Order Date: 02/03/24Order Info: [id number] - CBC Performed By: #### L 100.0500, L7000.5300, L500.4050 ####[facility] [address] [place], [address] RDW SD 45.7 fl High 35.1-43.[address] [facility] Comment on above: Order Comment: Order Date: 02/03/24Order Info: [id number] - CBC Performed By: #### L 100.0500, L7000.5300, L500.4050 ####[facility] [address] [place], [address] WBC (Bld) [#/Vol] 9.7 10*3/uL Normal 4.4-11.0 [facility] Comment on above: Order Comment: Order Date: 02/03/24Order Info: [id number] - CBC Performed By: #### L 100.0500, L7000.5300, L500.4050 ####[facility] [address] [place], [address] Comprehensive Metabolic Prof ilon 02-03-2024 Albumin [Mass/Vol] 2.6 g/dL Low 3.2-5.0 [facility] Comment on above: Order Comment: Order Date: 02/03/24Order Info: 0786-1 - CMP Performed By: #### L 100.0500, L7000.5300, L500.4050 ####[facility] [address] [place], [address] Albumin/Globulin [Mass ratio] 0.6 {ratio} Low 0.9-2.[address] [facility] Comment on above: Order Comment: Order Date: 02/03/24Order Info: 0786-1 - CMP Performed By: #### L 100.0500, L7000.5300, L500.4050 ####[facility] [address] [place], [address] ALK P 84 U/L Normal 45-[address] [facility] Comment on above: Order Comment: Order Date: 02/03/24Order Info: 0786-1 - CMP Performed By: #### L 100.0500, L7000.5300, L500.4050 ####[facility] [address] [place], [address] ALT [Catalytic activity/Vol] 15 U/L Low 16-[address] [facility] Comment on above: Order Comment: Order Date: 02/03/24Order Info: 0786-1 - CMP Performed By: #### L 100.0500, L7000.5300, L500.4050 ####[facility] [address] [place], [address] AST [Catalytic activity/Vol] 13 U/L Low 15-[address] [facility] Comment on above: Order Comment: Order Date: 02/03/24Order Info: 0786-1 - CMP Result Comment: Slig ht Hemolysis, Result may be falsely increased. Performed By: #### L 100.0500, L7000.5300, L500.4050 ####[facility] [address] [place], [address] Bilirubin [Mass/Vol] 0.30 mg/dL Normal 0.20-1.00 [facility] Comment on above: Order Comment: Order Date: 02/03/24Order Info: 07-1 - CMP Result Comment: For patients on eltrombopag therapy, use of Dimension Howard TBIL is not recommended. Performed By: #### L 100.0500, L7000.5300, L500.4050 ####[facility] [address] [place], [address] BUN/CRE 5.8 RATIO Low 10-[address] [facility] Comment on above: Order Comment: Order Date: 02/03/24Order Info: 0786-1 - CMP Performed By: #### L 100.0500, L7000.5300, L500.4050 ####[facility] [address] [place], [address] CA,Total 8.7 mg/dL Normal 8.5-10.[address] [facility] Comment on above: Order Comment: Order Date: 02/03/24Order Info: 0786-1 - CMP Performed By: #### L 100.0500, L7000.5300, L500.4050 ####[facility] [address] [place], [address] Chloride [Moles/Vol] 106 mmol/L Normal 98-107 [facility] Comment on above: Order Comment: Order Date: 02/03/24Order Info: 0786-1 - CMP Performed By: #### L 100.0500, L7000.5300, L500.4050 ####[facility] [address] [place], [address] CO2 [Moles/Vol] 27.0 mmol/L Normal 21.0-32.[address] [facility] Comment on above: Order Comment: Order Date: 02/03/24Order Info: 0786-1 - CMP Performed By: #### L 100.0500, L7000.5300, L500.4050 ####[facility] [address] [place], [address] Creatinine [Mass/Vol] 1.04 mg/dL Normal 0.70-1.30 [facility] Comment on above: Order Comment: Order Date: 02/03/24Order Info: 0786-1 - CMP Result Comment: The validity of the calculated GFR GFRAA in patients over 70 years has not been determined. Clinical correlation is essential. Performed By: #### L 100.0500, L7000.5300, L500.4050 ####[facility] [address] [place], [address] EST GFR - AA 106 mL/min Normal >[address] [facility] Comment on above: Order Comment: Order Date: 02/03/24Order Info: 0786-1 - CMP Result Comment: Afri can Macedonian GFR Calc Performed By: #### L 100.0500, L7000.5300, L500.4050 ####[facility] [address] [place], [address] GAP 5 Normal 5-[address] [facility] Comment on above: Order Comment: Order Date: 02/03/24Order Info: 0786-1 - CMP Performed By: #### L 100.0500, L7000.5300, L500.4050 ####[facility] [address] [place], [address] GFR/1.73 sq M.predicted among non-blacks MDRD (S/P/Bld) [Vol rate/Area] 87 mL/min/{1.73_m2} Normal >60 [facility] Comment on above: Order Comment: Order Date: 02/03/24Order Info: 0786-1 - CMP Result Comment: Non- GFR Calc Performed By: #### L 100.0500, L7000.5300, L500.4050 ####[facility] [address] [place], [address] Globulin (S) [Mass/Vol] 4.0 g/dL Normal 2.2-4.2 [facility] Comment on above: Order Comment: Order Date: 02/03/24Order Info: 0786-1 - CMP Performed By: #### L 100.0500, L7000.5300, L500.4050 ####[facility] [address] [place], [address] Glucose [Mass/Vol] 87 mg/dL Normal 74-106 [facility] Comment on above: Order Comment: Order Date: 02/03/24Order Info: 0786-1 - CMP Performed By: #### L 100.0500, L7000.5300, L500.4050 ####[facility] [address] [place], [address] Potassium [Moles/Vol] 4.3 mmol/L Normal 3.5-5.1 [facility] Comment on above: Order Comment: Order Date: 02/03/24Order Info: 0786-1 - CMP Result Comment: Slig ht Hemolysis, Result may be falsely increased. Performed By: #### L 100.0500, L7000.5300, L500.4050 ####[facility] [address] [place], [address] Sodium [Moles/Vol] 138 mmol/L Normal 136-145 [facility] Comment on above: Order Comment: Order Date: 02/03/24Order Info: 0786-1 - CMP Performed By: #### L 100.0500, L7000.5300, L500.4050 ####[facility] [address] [place], [address] T PROT 6.6 g/dL Normal 6.4-8.[address] [facility] Comment on above: Order Comment: Order Date: 02/03/24Order Info: 0786-1 - CMP Performed By: #### L 100.0500, L7000.5300, L500.4050 ####[facility] [address] [place], [address] Urea nitrogen [Mass/Vol] 6 mg/dL Low 7-[address] [facility] Comment on above: Order Comment: Order Date: 02/03/24Order Info: 0786-1 - CMP Performed By: #### L 100.0500, L7000.5300, L500.4050 ####[facility] [address] [place], [address] Brain/Head without Contrasto n 01-08-2024 Brain/Head without Contrast [facility] Imaging Services [address] [place] [address] Brain/Head without Contrast MR#: [id number] Acct: [id number] Name: AIMEE DUCKWORTH Rep #: [id number] : 1990 M 33 From: Douglas grijalva MD PCP: Dr. Kamron Erickson MD Status: REG ER Study: Brain/Head without Contrast Date of Exam: 01/25 Exam# [id number] Ordering Dr: Gustavo Garcia DO [id number] STUDY: CT BRAIN WITHOUT CONTRAST REASON FOR EXAM: Male, 33 years old. FACIAL NUMBNESS. Mark''s palsy. RADIATION DOSAGE (If Supplied By Facility): CTDIvol = ( 44.99 ) mGy, DLP = ( 796.11 ) mGycm TECHNIQUE: Transaxial CT imaging of the brain was performed without administration of intravenous contrast material. Individualized dose optimization techniques were used for this CT. COMPARISON: No relevant priors. FINDINGS: Normal soft tissue structures. Normal calvarium. Normal size ventricles and extra-axial spaces for the patient''s age. Normal white matter tracts of the cerebral hemispheres. Normal basal ganglia and thalami. Normal brainstem. Normal cerebellum. There is no intracranial hemorrhage. There are no findings of an acute ischemic infarction. Normal visualized paranasal sinuses. CT/Brain/Head without Contrast IMPRESSION: Normal unenhanced CT scan of the brain. Electronically Signed: Douglas Burns MD at 14:26 EDT Reading Location ID and State: [address] [place] [address] , Service support , CC: Dr. Gustavo Garcia DO; Dr. Kamron Erickson MD Supervisor Landscape: Signed Normal [facility] Emergency Department Summary on 01-08-2024 Emergency Department Summary [facility] Medical Records Department [address] [place] [id number] Emergency Department Summary 01/08/24 MR#: [id number] Acct: [id number] Name: AIMEE DUCKWORTH Rep #: [id number] : 1990 33 From: Gustavo Garcia DO PCP: Dr. Kamron Erickson MD Status:[facility] ER Location: ED HPI History of Present Illness Chief Complaint: Neuro S/Sx Narrative Narrative: 33-year-old male presenting with facial palsy on the left. He states it started over the last couple of days. He notes that he had a very bad headache before this all started and states he has a history of migraines. He states this was worse than a migraine and was all over his head. He states he laid in bed for 2 days and now he has a facial palsy. He states he thought he was having a medication side effect because his doctor was changing his Seroquel around. Patient denies numbness or tingling elsewhere. Has been able to use his arms and legs. Vision is unaffected. [facility] Medical History Schizophrenia Migraines Asthma Home Medications ???Medication ???Instructions ???Recorded ???Last Taken ???Type escitalopram oxalate 20 mg tablet 20 mg PO DAILY 12/31/21 Unknown History ondansetron 4 mg disintegrating 4 mg PO Q8H PRN nausea and 12/31/21 Unknown Rx tablet vomiting #10 tabs paliperidone 3 mg tablet,extended 3 mg PO DAILY 12/31/21 Unknown History release 24 hr montelukast 10 mg tablet 10 mg PO DAILY #14 tabs 01/30/22 Unknown Rx (Singulair) ondansetron 4 mg disintegrating 4 mg PO Q6H PRN nausea and 01/30/22 Unknown Rx tablet vomiting #10 tabs ondansetron 4 mg disintegrating 4 mg PO Q8H PRN PRN Nausea #14 tabs 04/13/23 Unknown Rx tablet promethazine 25 mg tablet 25 mg PO TID PRN nausea and 04/13/23 Unknown Rx vomiting #14 tabs prednisone 10 mg tablet 60 mg (6 x 10 mg) PO BID 7 days 01/08/24 Unknown Rx #84 tabs valacyclovir 1 gram tablet 1,000 mg PO Q8H #14 tabs 01/08/24 Unknown Rx Allergy/AdvReac Type Severity Reaction Status Date / Time Sulfa (Sulfonamide Allergy Unknown Verified 01/08/24 12:22 Antibiotics) sulfisoxazole (From Allergy Hives Verified 01/08/24 12:22 Gantrisin) Social History Smoking Status: Current every day smoker tobacco type: cigarettes ROS ROS ED Constitutional Constitutional ED: Denies chills, fever(s) or sweats Eyes Eyes: Denies blurry vision or change in vision ENT ENT ED: Denies ear pain or sore throat Cardiovascular Cardiovascular: Denies chest pain, palpitations or racing heartbeat Respiratory/Chest Respiratory/Chest: Denies cough, dyspnea or sputum Gastrointestinal Gastrointestinal: Denies abdominal pain, constipation, diarrhea, nausea or vomiting Genitourinary Genitourinary ED: Denies dysuria, hematuria or urinary frequency Musculoskeletal Musculoskeletal: Denies arthralgias, myalgias or neck pain Integumentary Denies abscess, Abrasions or rash Neurologic Neurologic: Reports headache(s) and other Details: Facial droop ; Denies paresthesias or weakness Psychiatric Psychiatric: Denies anxiety, depression, suicidal ideation or suicidal thoughts Endocrine Endocrinology: Denies polydipsia or polyuria EXAM Physical Exam Const Vital Signs: 01/08/24 12:23 Temperature 97 F L Temperature Source Temporal Pulse Rate 81 Respiratory Rate 14 Blood Pressure 137/100 H Blood Pressure Mean 112 Pulse Ox 100 Oxygen Delivery Method Room Air Positive well nourished HEENT Reports moist mucous membranes Eyes PERRL and EOMs intact bilaterally Chest Wall inspection of chest normal Resp normal respiratory effort and clear to auscultation bilaterally Auscultation: Negative for rales, rhonchi or wheezes Cardio regular rate and regular rhythm Extremity normal to inspection Neuro oriented x3 Neuro Narrative: Left-sided facial droop involving the left side of the mouth, left eye and does not spare the forehead. Sensorium / Orientation: alert Psych mental status grossly normal Skin no rashes or lesions noted MDM MDM MDM Narrative Medical decision making narrative: Patient presenting with headache which she states was worse than a migraine. He states that the headache has let up but now he has a facial droop. On examination he does have a Mark's palsy. We did get a CT of the brain today because of the headache history. This was negative for anything acute. Patient will be started on antivirals and prednisone. I also recommended that he keep his left eye well lubricated, and gently tape it close at night. Return precautions discussed. Impression: 1. Mark's palsy 2. Headache Radiography Diagnostic Testing: Clinical Impression(s) from (more content not included)... Normal [facility] CT ABDOMEN PELVIS WITH IV CO NTRAST ONLYon 05-06-2023 CT ABDOMEN PELVIS WITH IV CONTRAST ONLY EXAMINATION: CT ABDOMEN PELVIS WITH IV CONTRAST ONLY HISTORY: ORDERING SYSTEM PROVIDED HISTORY: Abdominal pain, TECHNOLOGIST PROVIDED HISTORY: Illness/Other Reason for exam: Abdominal pain x 6 years. Patient states he has cancerous polyps which have not been treated. States that nausea began today. Patient states that sometimes he vomits but not today. Poor historian. Encounter Type: Initial Additional signs and symptoms: Abdominal pain x 6 years. Patient states he has cancerous polyps which have not been treated. States that nausea began today. Patient states that sometimes he vomits but not today. Poor historian. ORDERING SYSTEM PROVIDED DIAGNOSIS CODES: COMPARISON: None. TECHNIQUE: CT examination of the abdomen and pelvis following the administration of intravenous contrast. Coronal and sagittal reformations were performed. Dose reduction techniques were achieved by using automated exposure control and/or adjustment of mA and/or kV according to patient size and/or use of iterative reconstruction technique. CONTRAST: IOPAMIDOL 370 MG IODINE/ML (76 %) INTRAVENOUS SOLUTION - 75 mL, FINDINGS: Lower thorax: Nodule measuring 7 mm in the left lower lobe (axial image 4). Liver and biliary tree: Normal. Gallbladder: Nondistended. Spleen: Normal. Pancreas: Normal. Adrenal glands: Normal. Kidneys and ureters: Normal. Urinary bladder: normal. Reproductive organs: Normal. Gastrointestinal tract: There is fluid in the lower esophagus. Some hyperdense material within the stomach may be related to ingested contents. No bowel obstruction. Terminal ileum and appendix appear normal. Large bowel is without acute findings. Peritoneal cavity: No free fluid or free air. Vasculature: No acute findings. Lymph nodes: No enlarged lymph nodes by size criteria. Abdominal wall: Normal. Musculoskeletal: Lumbosacral transitional anatomy with sacralization of L5. Degenerative changes of the spine. No acute or suspicious osseous findings. IMPRESSION: 1. No acute findings in the abdomen or pelvis. 2. Pulmonary nodule measuring 7 mm in the left lower lobe. Please see Fleischner guidelines below. 3. Chronic and incidental findings as above. Fleischner Society Guidelines: Solitary solid nodule 6-8 mm low-risk patients: CT at 6-12 months, then consider CT at 18-24 months high-risk patients: CT at 6-12 months, then CT at 18-24 months /[facility] Workstation ID: [id number] Dictated by: LINO BERMUDEZ on FriMay 06, 2023 9:44:43 PM EDT Transcribed by: LUX ERNST on FriMay 06, 2023 9:48:44 PM EDT Finalized by: LINO BERMUDEZ on FriMay 06, 2023 9:54:17 PM EDT [facility] Comment on above: Order Comment: Injur y/Trauma or Illness?:Illness/Other How long have you had these symptoms (acute/chronic)?:Acute Reason for exam?:Abdominal pain x 6 years. Patient states he has cancerous polyps which have not been treated. States that nausea began today. Patient states that sometimes he vomits but not today. Poor historian. Type of Exam?:Initial Additional signs and symptoms?:Abdominal pain x 6 years. Patient states he has cancerous polyps which have not been treated. States that nausea began today. Patient states that sometimes he vomits but not today. Poor historian. Absolute lymphocyte countOrd ered By: Gustavo Garcia on 04-13-2023 Lymphocytes Auto (Unsp spec) [#/Vol] 1.76 10*3/uL 0.83-4.[address] [facility] Basophil percentageOrdered B y: Gustavo Garcia on 04-13-2023 Basophils/100 WBC (Bld) 0.3 % 0-1 [facility] Bilirubin [Mass/Vol] 0.40 mg/dL 0.20-1.00 [facility] Comment on above: For patients on eltr ombopag therapy, use of Dimension Howard TBIL is not recommended. Chloride [Moles/Vol] 105 mmol/L 98-107 [facility] Eosinophils/100 WBC (Bld) 1.3 % 0-[address] [facility] Glucose [Mass/Vol] 126 mg/dL 74-106 [facility] Comment on above: Fasting Glucose resu lt greater than or equal to 126 mg/dL suggests DIABETES MELLITUS per A.D.A. criteria. Neutrophils (Bld) [#/Vol] 12.9 10*3/uL 2.0-7.[address] [facility] Neutrophils/100 WBC (Bld) 82.3 % 47-[address] [facility] Potassium [Moles/Vol] 3.3 mmol/L 3.5-5.1 [facility] Protein [Mass/Vol] 7.1 g/dL 6.4-8.2 [facility] Sodium [Moles/Vol] 141 mmol/L 136-145 [facility] WBC (Bld) [#/Vol] 15.7 10*3/uL 4.4-11.0 [facility] Blood erythrocytes count (nu mber/volume)Ordered By: Gustavo Garcia on 04-13-2023 RBC (Bld) [#/Vol] 5.04 10*6/uL 4.6-6.2 [facility] Blood hemoglobin measurement (mass/volume)Ordered By: Gustavo Garcia on 04-13-2023 Hemoglobin (Bld) [Mass/Vol] 14.9 g/dL 13.0-16. [address] [facility] Blood lymphocytes/100 leukoc ytesOrdered By: Gustavo Garcia on 04-13-2023 Lymphocytes/100 WBC (Bld) 11.2 % 19-[address] [facility] Blood monocytes/100 leukocyt esOrdered By: Gustavo Garcia on 04-13-2023 Monocytes/100 WBC (Bld) 4.5 % 0-10 [facility] Blood platelet mean volumeOr dered By: Gustavo Garcia on 04-13-2023 Platelet mean volume (Bld) [Entitic vol] 9.3 fL 6.2-12.[address] [facility] Determination of erythrocyte mean corpuscular volume (MCV)Ordered By: Gustavo Garcia on 04-13-2023 MCV (RBC) [Entitic vol] 89.5 fL 80-94 [facility] Direct bilirubinOrdered By: Gustavo Garcia on 04-13-2023 Bilirubin.direct [Mass/Vol] 0.14 mg/dL 0.00-0.[address] [facility] Hematocrit Auto (Bld) [Volum e fraction]Ordered By: Gustavo Garcia on 04-13-2023 Hematocrit (Bld) [Volume fraction] 45.1 % 40-[address] [facility] Laboratory - Chemistry and C hemistry - challengeOrdered By: Gustavo Garcia on 04-13-2023 ALP [Catalytic activity/Vol] 95 U/L 45-[address] [facility] ALT [Catalytic activity/Vol] 18 U/L 16-[address] [facility] CO2 [Moles/Vol] 30.0 mmol/L 21.0-32.[address] [facility] Globulin (S) [Mass/Vol] 3.4 g/dL 2.2-4.2 [facility] Lipase [Catalytic activity/Vol] 34 U/L 13-[address] [facility] Comment on above: Please note:LIPASE r evised reference range effective 22. New Lipase methodology. Expected to produce lower values than the previous assay method. NEW Reference Range: 13 - 75 U/L Urea nitrogen/Creatinine [Mass ratio] 8.2 mg/mg 10-[address] [facility] Laboratory - Hematology and Cell countsOrdered By: Gustavo Garcia on 04-13-2023 Erythrocyte distribution width (RBC) [Entitic vol] 42.0 fL 35.1-43.9 [facility] Erythrocyte distribution width (RBC) [Ratio] 12.8 % 11.6-14.[address] [facility] Immature granulocytes/100 WBC (Bld) 0.400 % 0.0-0.[address] [facility] Comment on above: IG% - Immature Granu locytes (promyelocytes, myelocytes and metamyelocytes) > 1% indicates that a LEFT SHIFT is Present. MCH (RBC) [Entitic mass] 29.6 pg 27.0-32.[address] [facility] Nucleated RBC/100 WBC (Bld) [Ratio] 0 % 0-[address] [facility] MCHC Auto (RBC) [Mass/Vol]Or dered By: Gustavo Garcia on 04-13-2023 MCHC (RBC) [Mass/Vol] 33.0 g/dL 32-36 [facility] No Panel InformationOrdered By: Gustavo Garcia on 04-13-2023 Estimated Creatinine Clearance Calc 120.00 ml/min [facility] Estimated GFR (MDRD) Amer 115 mL/min >[address] [facility] Comment on above: GFR Calc Estimated GFR (MDRD) Non-Af Amer 95 mL/min >[address] [facility] Comment on above: Non- GFR Calc Platelets bldOrdered By: Eric Garcia on 04-13-2023 Platelets (Bld) [#/Vol] 351 10*3/uL 150-[address] [facility] Serum or plasma albumin mauro urement (mass/volume)Ordered By: Gustavo Garcia on 04-13-2023 Albumin [Mass/Vol] 3.7 g/dL 3.2-5.0 [facility] Serum or plasma calcium mauro urement (mass/volume)Ordered By: Gustavo Garcia on 04-13-2023 Calcium [Mass/Vol] 8.6 mg/dL 8.5-10.1 [facility] Serum or plasma creatinine m easurement (mass/volume)Ordered By: Gustavo Garcia on 04-13-2023 Creatinine [Mass/Vol] 0.97 mg/dL 0.70-1.30 [facility] Comment on above: The validity of the calculated GFR & GFRAA in patients over 70 years has not been determined. Clinical correlation is essential. Serum or plasma urea nitroge n measurement (mass/volume)Ordered By: Gustavo Garcia on 04-13-2023 Urea nitrogen [Mass/Vol] 8 mg/dL 7-[address] [facility] Thin prep Papanicolaou smear with manual screeningOrdered By: Gustavo Garcia on 04-13-2023 Thin prep Papanicolaou smear with manual screening 10 U/L 15-[address] [facility] Thin prep Papanicolaou smear with manual screening 6 5-[address] [facility] Absolute lymphocyte counton 05-29-2022 Lymphocytes Auto (Unsp spec) [#/Vol] 2.50 10*3/uL 0.83-4.[address] [facility] Work Phone: [phone] Basophil percentageon 2021 Basophils/100 WBC (Bld) 0.3 % 0-1 [facility] Work Phone: [phone] Bilirubin [Mass/Vol] 0.30 mg/dL 0.20-1.00 [facility] Work Phone: [phone] Comment on above: For patients on eltr ombopag therapy, use of Dimension Howard TBIL is not recommended. Chloride [Moles/Vol] 110 mmol/L 98-107 [facility] Work Phone: Eosinophils/100 WBC (Bld) 0.8 % 0-[address] [facility] Work Phone: Glucose [Mass/Vol] 94 mg/dL 74-106 [facility] Work Phone: Neutrophils (Bld) [#/Vol] 8.4 10*3/uL 2.0-7.[address] [facility] Work Phone: Neutrophils/100 WBC (Bld) 71.5 % 47-[address] [facility] Work Phone: Potassium [Moles/Vol] 3.7 mmol/L 3.5-5.1 [facility] Work Phone: Protein [Mass/Vol] 7.6 g/dL 6.4-8.2 [facility] Work Phone: Sodium [Moles/Vol] 142 mmol/L 136-[facility]: WBC (Bld) [#/Vol] 11.8 10*3/uL 4.4-11.0 [facility] Work Phone: Blood erythrocytes count (nu mber/volume)on 05-29-2022 RBC (Bld) [#/Vol] 4.87 10*6/uL 4.6-6.2 [facility] Work Phone: Blood hemoglobin measurement (mass/volume)on 05-29-2022 Hemoglobin (Bld) [Mass/Vol] 14.8 g/dL 13.0-16. [address] [facility] Work Phone: Blood lymphocytes/100 leukoc yteson 05-29-2022 Lymphocytes/100 WBC (Bld) 21.2 % 19-[address] [facility] Work Phone: Blood monocytes/100 leukocyt eson 05-29-2022 Monocytes/100 WBC (Bld) 5.8 % 0-10 [facility] Work Phone: Blood platelet mean volumeon 05-29-2022 Platelet mean volume (Bld) [Entitic vol] 9.6 fL 6.2-12.[address] [facility] Work Phone: Determination of erythrocyte mean corpuscular volume (MCV)on 05-29-2022 MCV (RBC) [Entitic vol] 91.8 fL 80-94 [facility] Work Phone: Hematocrit Auto (Bld) [Volum e fraction]on 05-29-2022 Hematocrit (Bld) [Volume fraction] 44.7 % 40-[address] [facility] Work Phone: Laboratory - Chemistry and C hemistry - challengeon 05-29-2022 ALP [Catalytic activity/Vol] 94 U/L 45-[address] [facility] Work Phone: ALT [Catalytic activity/Vol] 23 U/L 16-[address] [facility] Work Phone: CO2 [Moles/Vol] 26.0 mmol/L 21.0-32.[address] [facility] Work Phone: Globulin (S) [Mass/Vol] 3.6 g/dL 2.2-4.2 [facility] Work Phone: Urea nitrogen/Creatinine [Mass ratio] 11.9 mg/mg 10-[address] [facility] Work Phone: Laboratory - Drug toxicology on 05-29-2022 Amphetamines Ql (U) Negative <1000 ng/mL [facility] Work Phone: Benzodiazepines Ql (U) Negative < 200 ng/mL [facility] Work Phone: Cannabinoids Screen Ql (U) Positive < 50 ng/m L [facility] Work Phone: Cocaine Ql (U) Negative < 300 ng/mL [facility] Work Phone: Opiates Ql (U) Negative < 300 ng/mL [facility] Work Phone: Laboratory - Hematology and Cell countson 05-29-2022 Erythrocyte distribution width (RBC) [Entitic vol] 42.7 fL 35.1-43.9 [facility] Work Phone: Erythrocyte distribution width (RBC) [Ratio] 12.6 % 11.6-14.[address] [facility] Work Phone: Immature granulocytes/100 WBC (Bld) 0.400 % 0.0-0.[address] [facility] Work Phone: Comment on above: IG% - Immature Granu locytes (promyelocytes, myelocytes and metamyelocytes) > 1% indicates that a LEFT SHIFT is Present. MCH (RBC) [Entitic mass] 30.4 pg 27.0-32.[address] [facility] Work Phone: Nucleated RBC/100 WBC (Bld) [Ratio] 0 % 0-[address] [facility] Work Phone: MCHC Auto (RBC) [Mass/Vol]on 05-29-2022 MCHC (RBC) [Mass/Vol] 33.1 g/dL 32-36 [facility] Work Phone: No Panel Informationon 05-29 Estimated Creatinine Clearance Calc 99.56 ml/min [facility] Work Phone: Estimated GFR (MDRD) Amer 92 mL/min >[address] [facility] Work Phone: Comment on above: GFR Calc Estimated GFR (MDRD) Non-Af Amer 76 mL/min >[address] [facility] Work Phone: Comment on above: Non- GFR Calc Ethyl Alcohol Level < 3.0 mg/dL [facility] Work Phone: Comment on above: The serum:whole bloo d ethanol ratio is approximately 1.14and varies slightly with hematocrit. Medical Alcohol reference interval and critical value innon-tolerant individuals; 50 - 100 Impairment 100 Intoxication 100 - 250 Severe Poisoning 250 - 400 Deep/possible fatal coma MDMA (Ecstasy) Screen Negative < 500 ng/mL [facility] Work Phone: Urine Barbiturates Screen Negative < 200 ng/mL [facility] Work Phone: Urine Drug Screen Comment [facility] Work Phone: Comment on above: CONFIRMATORY TESTING FOR ALL POSITIVE URINE DRUG SCREENRESULTS WILL ONLY BE SENT OUT UPON PHYSICIAN ORDER. VISTA Urine Drug Screen methods provide only preliminaryanalytical test results. A more specific alternate chemicalmethod must be used in order to obtain a confirmedanalytical result. Gas chromatography/mass spectrometery(GC/MS) is the preferred confirmatory method. Clinicalconsideration and professional judgement should be appliedto any drug of abuse test result, particularly whenpreliminary positive results are used. URINE TCA TESTING MUST BE ORDERED SEPARATELY. USE TESTMNEMONIC: [facility] Urine Methadone Screen Negative < 300 ng/mL [facility] Work Phone: Platelets bldon 05-29-2022 Platelets (Bld) [#/Vol] 336 10*3/uL 150-[address] [facility] Work Phone: Serum or plasma albumin mauro urement (mass/volume)on 05-29-2022 Albumin [Mass/Vol] 4.0 g/dL 3.2-5.0 [facility] Work Phone: [phone] Serum or plasma albumin/glob ulin mass ratioon 05-29-2022 Albumin/Globulin [Mass ratio] 1.1 {ratio} 0.9-2.[address] [facility] Work Phone: [phone] Serum or plasma calcium mauro urement (mass/volume)on 05-29-2022 Calcium [Mass/Vol] 9.1 mg/dL 8.5-10.1 [facility] Work Phone: Serum or plasma creatinine m easurement (mass/volume)on 05-29-2022 Creatinine [Mass/Vol] 1.18 mg/dL 0.70-1.30 [facility] Work Phone: Comment on above: The validity of the calculated GFR & GFRAA in patients over 70 years has not been determined. Clinical correlation is essential. Serum or plasma urea nitroge n measurement (mass/volume)on 05-29-2022 Urea nitrogen [Mass/Vol] 14 mg/dL 7-[address] [facility] Work Phone: Thin prep Papanicolaou smear with manual screeningon 05-29-2022 Thin prep Papanicolaou smear with manual screening 17 U/L 15-[address] [facility] Work Phone: [phone] Thin prep Papanicolaou smear with manual screening 6 5-[address] [facility] Work Phone: [phone] Urine phencyclidine (PCP) de tectionon 05-29-2022 Phencyclidine Ql (U) Negative < 25 ng/mL [facility] Work Phone: Absolute lymphocyte counton 01-30-2022 Lymphocytes Auto (Unsp spec) [#/Vol] 0.87 10*3/uL 0.83-4.[address] [facility] Work Phone: Basophil percentageon 2021 Basophils/100 WBC (Bld) 0.2 % 0-1 [facility] Work Phone: Chloride [Moles/Vol] 106 mmol/L 98-107 [facility] Work Phone: Eosinophils/100 WBC (Bld) 0.1 % 0-[address] [facility] Work Phone: Glucose [Mass/Vol] 109 mg/dL 74-106 [facility] Work Phone: Comment on above: Fasting Glucose resu lt from 100 to 125 mg/dL suggests IMPAIRED HOMEOSTASIS per A.D.A. criteria. Neutrophils (Bld) [#/Vol] 10.6 10*3/uL 2.0-7.[address] [facility] Work Phone: Neutrophils/100 WBC (Bld) 89.3 % 47-[address] [facility] Work Phone: Potassium [Moles/Vol] 3.6 mmol/L 3.5-5.1 [facility] Work Phone: Sodium [Moles/Vol] 137 mmol/L 136-145 [facility] Work Phone: WBC (Bld) [#/Vol] 11.8 10*3/uL 4.4-11.0 [facility] Work Phone: Blood erythrocytes count (nu mber/volume)on 01-30-2022 RBC (Bld) [#/Vol] 5.28 10*6/uL 4.6-6.2 [facility] Work Phone: Blood hemoglobin measurement (mass/volume)on 01-30-2022 Hemoglobin (Bld) [Mass/Vol] 15.7 g/dL 13.0-16. [address] [facility] Work Phone: Blood lymphocytes/100 leukoc yteson 01-30-2022 Lymphocytes/100 WBC (Bld) 7.3 % 19-[address] [facility] Work Phone: Blood manual differential co mment interpretation (narrative result)on 01-30-2022 Manual differential comment Bebeto (Bld) [Interp] See comment [facility] Work Phone: Comment on above: AUTO DIFF OK Blood monocytes/100 leukocyt eson 01-30-2022 Monocytes/100 WBC (Bld) 2.7 % 0-10 [facility] Work Phone: [phone] Blood platelet mean volumeon 01-30-2022 Platelet mean volume (Bld) [Entitic vol] 9.9 fL 6.2-12.[address] [facility] Work Phone: Determination of erythrocyte mean corpuscular volume (MCV)on 01-30-2022 MCV (RBC) [Entitic vol] 94.3 fL 80-94 [facility] Work Phone: Hematocrit Auto (Bld) [Volum e fraction]on 01-30-2022 Hematocrit (Bld) [Volume fraction] 49.8 % 40-[address] [facility] Work Phone: Laboratory - Chemistry and C hemistry - challengeon 01-30-2022 CO2 [Moles/Vol] 20.0 mmol/L 21.0-32.[address] [facility] Work Phone: Urea nitrogen/Creatinine [Mass ratio] 7.0 mg/mg 10-[address] [facility] Work Phone: [phone] Laboratory - Hematology and Cell countson 01-30-2022 Erythrocyte distribution width (RBC) [Entitic vol] 42.8 fL 35.1-43.9 [facility] Work Phone: [phone] Erythrocyte distribution width (RBC) [Ratio] 12.4 % 11.6-14.[address] [facility] Work Phone: [phone] Immature granulocytes/100 WBC (Bld) 0.400 % 0.0-0.[address] [facility] Work Phone: Comment on above: IG% - Immature Granu locytes (promyelocytes, myelocytes and metamyelocytes) > 1% indicates that a LEFT SHIFT is Present. MCH (RBC) [Entitic mass] 29.7 pg 27.0-32.[address] [facility] Work Phone: Nucleated RBC/100 WBC (Bld) [Ratio] 0 % 0-[address] [facility] Work Phone: MCHC Auto (RBC) [Mass/Vol]on 01-30-2022 MCHC (RBC) [Mass/Vol] 31.5 g/dL 32-36 [facility] Work Phone: No Panel Informationon 01-30 Estimated Creatinine Clearance Calc 102.15 ml/min [facility] Work Phone: Estimated GFR (MDRD) Amer 95 mL/min >[address] [facility] Work Phone: Comment on above: GFR Calc Estimated GFR (MDRD) Non-Af Amer 79 mL/min >[address] [facility] Work Phone: Comment on above: Non- GFR Calc Platelets bldon 01-30-2022 Platelets (Bld) [#/Vol] 345 10*3/uL 150-[address] [facility] Work Phone: Serum or plasma calcium mauro urement (mass/volume)on 01-30-2022 Calcium [Mass/Vol] 9.2 mg/dL 8.5-10.1 [facility] Work Phone: Serum or plasma creatinine m easurement (mass/volume)on 01-30-2022 Creatinine [Mass/Vol] 1.15 mg/dL 0.70-1.30 [facility] Work Phone: Comment on above: The validity of the calculated GFR & GFRAA in patients over 70 years has not been determined. Clinical correlation is essential. Serum or plasma urea nitroge n measurement (mass/volume)on 01-30-2022 Urea nitrogen [Mass/Vol] 8 mg/dL 7-[address] [facility] Work Phone: Thin prep Papanicolaou smear with manual screeningon 01-30-2022 Thin prep Papanicolaou smear with manual screening 11 5-[address] [facility] Work Phone: Absolute lymphocyte counton 12-31-2021 Lymphocytes Auto (Unsp spec) [#/Vol] 2.55 10*3/uL 0.83-4.[address] [facility] Work Phone: Basophil percentageon 2021 Basophils/100 WBC (Bld) 0.1 % 0-1 [facility] Work Phone: Bilirubin [Mass/Vol] 0.90 mg/dL 0.20-1.00 [facility] Work Phone: Comment on above: For patients on eltr ombopag therapy, use of Dimension Howard TBIL is not recommended. Chloride [Moles/Vol] 100 mmol/L 98-107 [facility] Work Phone: Eosinophils/100 WBC (Bld) 0.0 % 0-[address] [facility] Work Phone: Glucose [Mass/Vol] 137 mg/dL 74-106 [facility] Work Phone: Comment on above: Fasting Glucose resu lt greater than or equal to 126 mg/dL suggests DIABETES MELLITUS per A.D.A. criteria. Neutrophils (Bld) [#/Vol] 15.3 10*3/uL 2.0-7.[address] [facility] Work Phone: Neutrophils/100 WBC (Bld) 77.9 % 47-[address] [facility] Work Phone: Potassium [Moles/Vol] 3.1 mmol/L 3.5-5.1 [facility] Work Phone: Protein [Mass/Vol] 7.2 g/dL 6.4-8.2 [facility] Work Phone: Sodium [Moles/Vol] 139 mmol/L 136-145 [facility] Work Phone: WBC (Bld) [#/Vol] 19.7 10*3/uL 4.4-11.0 [facility] Work Phone: Blood erythrocytes count (nu mber/volume)on 12-31-2021 RBC (Bld) [#/Vol] 4.94 10*6/uL 4.6-6.2 [facility] Work Phone: Blood hemoglobin measurement (mass/volume)on 12-31-2021 Hemoglobin (Bld) [Mass/Vol] 14.9 g/dL 13.0-16. [address] [facility] Work Phone: [phone] Blood lymphocytes/100 leukoc yteson 12-31-2021 Lymphocytes/100 WBC (Bld) 13.0 % 19-[address] [facility] Work Phone: Blood manual differential co mment interpretation (narrative result)on 12-31-2021 Manual differential comment Bebeto (Bld) [Interp] SCANNED [facility] Work Phone: [phone] Blood monocytes/100 leukocyt eson 12-31-2021 Monocytes/100 WBC (Bld) 8.6 % 0-10 [facility] Work Phone: Blood platelet adequacy dete ction by light microscopyon 12-31-2021 Platelets LM Ql (Bld) ADEQUATE ADEQ [facility] Work Phone: Blood platelet mean volumeon 12-31-2021 Platelet mean volume (Bld) [Entitic vol] 9.4 fL 6.2-12.[address] [facility] Work Phone: Determination of erythrocyte mean corpuscular volume (MCV)on 12-31-2021 MCV (RBC) [Entitic vol] 90.1 fL 80-94 [facility] Work Phone: Hematocrit Auto (Bld) [Volum e fraction]on 12-31-2021 Hematocrit (Bld) [Volume fraction] 44.5 % 40-[address] [facility] Work Phone: Laboratory - Chemistry and C hemistry - challengeon 12-31-2021 ALP [Catalytic activity/Vol] 103 U/L 45-[address] [facility] Work Phone: ALT [Catalytic activity/Vol] 21 U/L 16-[address] [facility] Work Phone: CO2 [Moles/Vol] 30.0 mmol/L 21.0-32.[address] [facility] Work Phone: Globulin (S) [Mass/Vol] 3.1 g/dL 2.2-4.2 [facility] Work Phone: Urea nitrogen/Creatinine [Mass ratio] 7.6 mg/mg 10-[address] [facility] Work Phone: Laboratory - Hematology and Cell countson 12-31-2021 Erythrocyte distribution width (RBC) [Entitic vol] 40.7 fL 35.1-43.9 [facility] Work Phone: Erythrocyte distribution width (RBC) [Ratio] 12.4 % 11.6-14.[address] [facility] Work Phone: Immature granulocytes/100 WBC (Bld) 0.400 % 0.0-0.[address] [facility] Work Phone: Comment on above: IG% - Immature Granu locytes (promyelocytes, myelocytes and metamyelocytes) > 1% indicates that a LEFT SHIFT is Present. MCH (RBC) [Entitic mass] 30.2 pg 27.0-32.[address] [facility] Work Phone: Nucleated RBC/100 WBC (Bld) [Ratio] 0 % 0-[address] [facility] Work Phone: MCHC Auto (RBC) [Mass/Vol]on 12-31-2021 MCHC (RBC) [Mass/Vol] 33.5 g/dL 32-36 [facility] Work Phone: No Panel Informationon 12-31 Estimated Creatinine Clearance Calc 89.68 ml/min [facility] Work Phone: Estimated GFR (MDRD) Amer 82 mL/min >[address] [facility] Work Phone: Comment on above: GFR Calc Estimated GFR (MDRD) Non-Af Amer 68 mL/min >[address] [facility] Work Phone: Comment on above: Non- GFR Calc Platelets bldon 12-31-2021 Platelets (Bld) [#/Vol] 374 10*3/uL 150-[address] [facility] Work Phone: Review by pathologiston 12-04 Pathologist review Bebeto (Unsp spec) [Interp] December yuliana [facility] Work Phone: Pathologist review Bebeto (Unsp spec) [Interp] Reviewed [facility] Work Phone: Comment on above: Previous reported re sult: December yuliana Edited by: RGOOD on 01/01/22:1152Neutrophilic leukocytosis.Clinical correlation suggested.Sb Varma D.O. 01/01/22 AMENDED REPORT 01/01/22 1152 PATH REV previously reported as: December yuliana Serum or plasma albumin mauro urement (mass/volume)on 12-31-2021 Albumin [Mass/Vol] 4.1 g/dL 3.2-5.0 [facility] Work Phone: Serum or plasma albumin/glob ulin mass ratioon 12-31-2021 Albumin/Globulin [Mass ratio] 1.3 {ratio} 0.9-2.[address] [facility] Work Phone: Serum or plasma calcium mauro urement (mass/volume)on 12-31-2021 Calcium [Mass/Vol] 8.8 mg/dL 8.5-10.1 [facility] Work Phone: Serum or plasma creatinine m easurement (mass/volume)on 12-31-2021 Creatinine [Mass/Vol] 1.31 mg/dL 0.70-1.30 [facility] Work Phone: Comment on above: The validity of the calculated GFR & GFRAA in patients over 70 years has not been determined. Clinical correlation is essential. Serum or plasma urea nitroge n measurement (mass/volume)on 12-31-2021 Urea nitrogen [Mass/Vol] 10 mg/dL 7-[address] [facility] Work Phone: Thin prep Papanicolaou smear with manual screeningon 12-31-2021 Thin prep Papanicolaou smear with manual screening 12 U/L 15-[address] [facility] Work Phone: Thin prep Papanicolaou smear with manual screening 9 5-[address] [facility] Work Phone: No Panel Informationon 12-27 Enteric Bacteriology [facility] Work Phone: Gram stain for investigation of transfusion reactionon 12-17-2021 Microscopic observation Gram stain Nom (Unsp spec) [facility] Work Phone: No Panel Informationon 12-17 Nasopharyngeal Culture Pseudomonas aeroginosa [facility] Work Phone: TSCon 06-04-2018 [facility] [place]: 06/[place]/2018Patient is a 27-year-old male presenting to [facility] today with 2 weeks of sinuspressure, drainage, cough, sore throat, and vomiting. He reports he has not seenanyone for this complaint in the past. Denies any fevers, sweats, or chills.Reports he is having some body aches and feeling fatigued. Denies any abdominalpain. Intermittent diarrhea also a complaint. Denies any hematemesis, melena,hematochezia, chest pain, or shortness of breath.PAST MEDICAL HISTORY: Headaches and ulcers.ALLERGIES: SULFA.MEDICATIONS:1. Aleve.2. B-12.PHYSICAL EXAMINATION: Vital Signs: Blood pressure 135/90, pulse 98, respirationrate 16, temperature 99, pulse oximetry 99%. General: Well appearing, calm andnontoxic. No apparent distress. HEENT: Bilateral TMs slightly bulging with serousmiddle ear fluid. Noninjected. Nasal mucosa erythema and edema, yellowish whiterhinorrhea. Posterior pharynx post nasal drip. No tonsillar hypertrophy or exudatepresent. Bilateral submandibular lymphadenopathy. Bilateral frontal sinustenderness. Cardiovascular: Regular rate and rhythm. No murmurs. Respiratory:Lung sounds clear to auscultation bilaterally. No respiratory distress. Coarsecough present. Gastrointestinal: Normal bowel sounds. No abdominal tenderness.CLINICAL IMPRESSION:1. Acute sinusitis.2. Nausea and vomiting.PLAN: Prescription for Augmentin 875 b.i.d. x10 days and Bromfed DM as needed forcough, congestion send to pharmacy. He is agreeable with plan, has no otherquestions or concerns. He is given contact list to establish with PCP. Tylenol oribuprofen as needed. He is aware of the importance of increased oral hydration.Patient is nontoxic in appearance, afebrile, and appropriate for outpatientmanagement._ Abraham Lauren, [facility]/[id number]: 06/04/2018 10:57 [facility] PATIENT NAME: AIMEE DUCKWORTH C132Yehuda Radha Trinh [facility] REC #: [id number], [place] [id number] [facility] REPORT [facility] PHYSICIANDT: 06/05/2018 09:29[facility] File#: [id number] #: [id number]/Reviewe d by06/05/18 1018 [facility] PATIENT NAME: AIMEE DUCKWORTH [id number] Radha Trinh [facility] REC #: [id number], [place] [address] STATCARE REPORT STATCARE PHYSICIAN [facility] CASSANDRA [facility] GI -- ----Patient: AIMEE DUCKWORTH C ----SPECIMEN: [id number] Collection Date: 07/17/17-1011 Received: 07/22/17 Status: ERIC Nesbitt Dr.: Ashtyn Moreira MD Ph# Othr. Dr.: Hailey Jarquin NP Material for Examination: A ESOPHAGEAL BX @ 39 CM, R/O PONCE'S PRE-OP DIAGNOSIS: ULCER OF ESOPHAGUS POST-OP DIAGNOSIS: NONE GIVEN SURGICAL PROCEDURE: NONE GIVEN SPECIMEN COMMENTS: RECEIVED FROM [facility], [address] [place] [address] 2 Jan SLIDES LABELED [id number] TONEAIMEE Diaz L1,[id number] A. Esophagus, at 39 cm; multiple biopsies: Inflamed squamocolumnar mucosa. No goblet cell intestinal metaplasia. No dysplasia.GROSS DESCRIPTION The specimen is grossed and processed at [facility] The following is their gross description:Received in formalin, labeled esophagus @ 39 cm are 2 irregular, soft, pink-hernandez fragmentsof tissue ranging in size from less than 0.1-0.1 cm. The specimen is entirely submitted inone cassette.MICROSCOPIC DESCRIPTION Two Jan stained slides examined.COPIES TO: Hailey Jarquin NP, Zuo-Liang MDSigned Verified/Reviewed by KIRILL GUTIERREZ 07/22/17 This dictation was created using voice recognition software. Phonetic and/or minor grammatical errors may exist. [facility] NAME: AIMEE DUCKWORTH Pathology and Laboratory Medicine UNIT#: [id number] LOC: [facility] Catalogue Maker: Rula Ryan M.D. [id number] ROOM/BED: [employer] : 90 AGE/SEX: 26/M ORD.Ashtyn Mitchell MD END OF REPORT Normal [facility] [place] Gram stain for investigation of transfusion reaction Microscopic observation Gram stain Nom (Unsp spec) [facility] Work Phone: No Panel Information Nasopharyngeal Culture Pseudomonas aeroginosa [facility] Work Phone: Vital Signs Date Time Vital Sign Value Performing Clinician Faci lity 11-03-2024 23:54-0400 Heart rate 68 /min Dr. Kamron Erickson MD Work Phone: [facility] 11-03-2024 23:54-0400 Respiratory rate 18 /min Dr. Kamron Erickson MD Work Phone: [facility] 11-03-2024 23:54-0400 SaO2% (BldA) [Mass fraction] 94 % Dr. Kamron Erickson MD Work Phone: [facility] 11-03-2024 21:30-0400 Body temperature 97.7 [degF] Dr. Kamron Erickson MD Work Phone: [facility] 11-03-2024 21:30-0400 Diastolic blood pressure 91 mm[Hg] Dr. Kamron Erickson MD Work Phone: [facility] 11-03-2024 21:30-0400 Systolic blood pressure 109 mm[Hg] Dr. Kamron Erickson MD Work Phone: [facility] 11-03-2024 09:24-0400 Body height 182.[address] Kamron Erickson MD Work Phone: [facility] 11-03-2024 09:24-0400 Body weight 131.[address] Kamron Erickson MD Work Phone: 2(726)223-989383 [place] [address] 11-03-2024 07:00-0400 Inhaled oxygen flow rate 2 L/min Dr. Kamron Erickson MD Work Phone: 7(776)402-294183 [place] [address] 11-03-2024 06:00-0400 Body mass index (BMI) [Ratio] 39.1 kg/m2 Dr. Kamron Erickson MD Work Phone: 5(712)093-217305 [place] [address] 11-02-2024 13:38-0400 Body temperature 97.7 [degF] Dr. Kamron Erickson MD Work Phone: 4(615)167-684305 [place] [address] 11-02-2024 13:38-0400 Diastolic blood pressure 78 mm[Hg] Dr. Kamron Erickson MD Work Phone: 9(453)563-729205 [place] [address] 11-02-2024 13:38-0400 Heart rate 87 /min Dr. Kamron Erickson MD Work Phone: 4(931)354-871205 [place] [address] 11-02-2024 13:38-0400 Respiratory rate 16 /min Dr. Kamron Erickson MD Work Phone: 3(770)591-118505 [place] [address] 11-02-2024 13:38-0400 SaO2% (BldA) [Mass fraction] 98 % Dr. Kamron Erickson MD Work Phone: 6(418)146-376383 [place] [address] 11-02-2024 13:38-0400 Systolic blood pressure 107 mm[Hg] Dr. Kamron Erickson MD Work Phone: 8(405)745-419205 [place] [address] 11-02-2024 11:24-0400 Body height 182.[address] Kamron Erickson MD Work Phone: 3(570)720-965283 [place] [address] 11-02-2024 11:24-0400 Body mass index (BMI) [Ratio] 39.2 kg/m2 Dr. Kamron Erickson MD Work Phone: 8(518)770-841883 [place] [address] 11-02-2024 11:24-0400 Body weight [address] Kamron Erickson MD Work Phone: [facility] 08-04-2024 08:51-0500 Body temperature 97.9 [degF] Dr. Kamron Erickson MD Work Phone: [facility] 08-04-2024 08:51-0500 Diastolic blood pressure 81 mm[Hg] Dr. Kamron Erickson MD Work Phone: 4(841)891-045783 [place] [address] 08-04-2024 08:51-0500 Heart rate 74 /min Dr. Kamron Erickson MD Work Phone: [facility] 08-04-2024 08:51-0500 Respiratory rate 16 /min Dr. Kamron Erickson MD Work Phone: [facility] 08-04-2024 08:51-0500 SaO2% (BldA) [Mass fraction] 97 % Dr. Kamron Erickson MD Work Phone: [facility] 08-04-2024 08:51-0500 Systolic blood pressure 124 mm[Hg] Dr. Kamron Erikcson MD Work Phone: [facility] 08-03-2024 12:44-0500 Body mass index (BMI) [Ratio] 34.2 kg/m2 Dr. Kamron Erickson MD Work Phone: [facility] 08-03-2024 12:44-0500 Body weight 114.[address] Kamron Erickson MD Work Phone: [facility] 04-13-2023 07:01-0400 Diastolic blood pressure 59 mm[Hg] [facility] 04-13-2023 07:01-0400 Heart rate 66 /min [facility] 04-13-2023 07:01-0400 Respiratory rate 15 /min [facility] 04-13-2023 07:01-0400 SaO2% (BldA) [Mass fraction] 100 % [facility] 04-13-2023 07:01-0400 Systolic blood pressure 104 mm[Hg] [facility] 04-13-2023 04:07-0400 Body height 182.88 cm [facility] 04-13-2023 04:07-0400 Body mass index (BMI) [Ratio] 36.1 kg/m2 [facility] 04-13-2023 04:07-0400 Body temperature 97.6 [degF] [facility] 04-13-2023 04:07-0400 Body weight 121 kg [facility] 05-30-2022 08:38-0400 Diastolic blood pressure 81 mm[Hg] [facility] Work Phone: 05-30-2022 08:38-0400 Heart rate 90 /min [facility] Work Phone: 05-30-2022 08:38-0400 Respiratory rate 15 /min [facility] Work Phone: 05-30-2022 08:38-0400 SaO2% (BldA) [Mass fraction] 100 % [facility] Work Phone: 05-30-2022 08:38-0400 Systolic blood pressure 138 mm[Hg] [facility] Work Phone: 05-30-2022 06:18-0400 Body temperature 97.9 [degF] [facility] Work Phone: 05-29-2022 20:56-0400 Body height 182.88 cm [facility] Work Phone: 05-29-2022 20:56-0400 Body mass index (BMI) [Ratio] 33 kg/m2 [facility] Work Phone: 05-29-2022 20:56-0400 Body weight 110.6 kg [facility] Work Phone: 01-30-2022 14:47-0400 Body height 182.88 cm [facility] Work Phone: 01-30-2022 14:47-0400 Body mass index (BMI) [Ratio] 32.4 kg/m2 [facility] Work Phone: 01-30-2022 14:47-0400 Body temperature 97 [degF] [facility] Work Phone: 01-30-2022 14:47-0400 Body weight 108.47 kg [facility] Work Phone: 01-30-2022 14:47-0400 Diastolic blood pressure 102 mm[Hg] [facility] Work Phone: 01-30-2022 14:47-0400 Heart rate 124 /min [facility] Work Phone: 01-30-2022 14:47-0400 Respiratory rate 16 /min [facility] Work Phone: 01-30-2022 14:47-0400 SaO2% (BldA) [Mass fraction] 98 % [facility] Work Phone: 01-30-2022 14:47-0400 Systolic blood pressure 130 mm[Hg] [facility] Work Phone: 12-31-2021 04:11-0400 Diastolic blood pressure 90 mm[Hg] [facility] Work Phone: 12-31-2021 04:11-0400 Heart rate 82 /min [facility] Work Phone: 12-31-2021 04:11-0400 Respiratory rate 20 /min [facility] Work Phone: 12-31-2021 04:11-0400 SaO2% (BldA) [Mass fraction] 94 % [facility] Work Phone: 12-31-2021 04:11-0400 Systolic blood pressure 137 mm[Hg] [facility] Work Phone: 12-31-2021 01:56-0400 Body height 182.88 cm [facility] Work Phone: 12-31-2021 01:56-0400 Body mass index (BMI) [Ratio] 34 kg/m2 [facility] Work Phone: 12-31-2021 01:56-0400 Body temperature 98.9 [degF] [facility] Work Phone: 12-31-2021 01:56-0400 Body weight 113.7 kg [facility] Work Phone: Encounters Encounter Date Encounter Type Care Provider Facility Start: 11-03-2024 Non-patient / Non-visit Dr. Román martinez MD -[facility] Work Phone: Start: 11-02-2024 Non-patient / Non-visit Dr. Román martinez MD -[facility] Work Phone: Start: 11-02-2024 ambulatory Román Sandoval Facility:[facility] Start: 11-02-2024 End: 11-04-2024 Evaluation and management of inpatient Dr. Román Sandoval MD -Intensive Care Unit Work Phone: Start: 08-03-2024 End: 08-04-2024 Emergency department patient visit Dr. Rodriguez Beavers DO -Emergency Department Work Phone: Start: 06-02-2024 End: 06-02-2024 Emergency department patient visit Diomedesvioleta York Facility:[facility] Start: 04-25-2024 End: 04-26-2024 Emergency department patient visit Tramaine Tovar Facility:[facility] Start: 03-26-2024 End: 03-27-2024 Emergency department patient visit Gumaro Morejon Facility:[facility] Start: 02-03-2024 End: 02-03-2024 ambulatory Kamron Erickson Facility:[facility] Start: 01-08-2024 End: 01-08-2024 Emergency department patient visit Gustavo Garcia Facility:[facility] Start: 05-06-2023 End: 05-07-2023 Emergency department patient visit VIDAL CAMARGO [facility] Start: 04-13-2023 End: 04-13-2023 Emergency department patient visit [facility]Emergency Department Work Phone: Start: 05-29-2022 End: 05-30-2022 Emergency department patient visit [facility]gency [facility] Start: 01-30-2022 End: 01-30-2022 Emergency department patient visit [facility]Emergency [facility] Start: 12-31-2021 End: 12-31-2021 Emergency department patient visit [facility]Emergency Department Start: 12-27-2021 End: 12-27-2021 Patient encounter procedure [facility]-Laboratory, Specimen Start: 12-17-2021 End: 12-17-2021 Patient encounter procedure [facility], Tisha Mancini Start: 06-04-2018 Patient encounter procedure Abraham Aguilar Facility:[facility] Start: 07-17-2017 Patient encounter procedure Ashtyn Moreira Facility:[facility] Procedures Date Procedure Procedure Detail Performing Clinician Start: 08-03-2024 CT of head without contrast Dr. Kamron Erickson MD Work Phone: Start: 04-13-2023 Computed tomography of abdomen and pelvis with intravenous contrast Start: 01-30-2022 Plain chest X-ray Start: 12-27-2021 Enteric Bacteriology Start: 12-27-2021 End: 12-27-2021 Ova OR parasites identification Start: 12-17-2021 Investigation of transfusion reaction Start: 12-17-2021 Nasopharyngeal Culture Investigation of transfusion reaction Nasopharyngeal Culture Ova OR parasites identification Viral antigen assay Plan of Treatment Date Care Activity Detail Author Start: 11-03-2024 Care planning and problem solving actions [facility] Start: 11-03-2024 Electrocardiographic procedure [facility] Start: 11-03-2024 Serum inorganic phosphate measurement [facility] Start: 11-03-2024 Patient discharge [facility] Start: 11-02-2024 Suicide precautions [facility] Start: 11-02-2024 Following clinical pathway protocol [facility] Start: 11-02-2024 Ambulation without limitation [facility] Start: 11-02-2024 Assessment of risk of venous thromboembolism [facility] Start: 11-02-2024 Continuous pulse oximetry [facility] Start: 11-02-2024 Inhalation therapy procedure [facility] Start: 11-02-2024 Insertion of catheter into peripheral vein [facility] Start: 11-02-2024 Measuring intake and output [facility] Start: 11-02-2024 Oxygen therapy [facility] Start: 11-02-2024 Providing care according to standard [facility] Start: 11-02-2024 Vital signs measurements [facility] Start: 11-02-[address] [facility] Start: 11-02-2024 Verification routine [facility] Start: 11-02-2024 Admission procedure [facility] Start: 11-02-2024 Seizure precautions [facility] Start: 11-02-2024 Referral to service [facility] Start: 11-02-2024 End: 11-02-2024 Suicide precautions [facility] Start: 11-02-[address] [facility] Start: 08-03-[address] [facility] Start: 08-03-2024 Suicide precautions [facility] Start: 01-30-2022 Plain chest X-ray Chest 1 View (Portable) [facility] Work Phone: Start: 01-30-2022 XR Chest Single view [facility] Work Phone: Start: 01-30-2022 End: 01-30-[address] [facility] Work Phone: Start: 12-27-2021 Ova and Parasites Ova and Parasites [facility] Work Phone: Start: 12-17-2021 Nasopharyngeal Culture Nasopharyngeal Culture [facility] Work Phone: Alanine aminotransfe rase [Enzymatic activity/volume] in Serum or Plasma [facility] Albumin [Mass/volume ] in Serum or Plasma [facility] Alkaline phosphatase [Enzymatic activity/volume] in Serum or Plasma [facility] Amphetamines [Presen ce] in Urine by Screen method >1000 ng/mL [facility] Anion gap in Serum or Plasma [facility] Benzodiazepine measu rement, urine [facility] Bilirubin, total measurement [facility] BUN/Creatinine ratio [facility] Calcium [Mass/volume ] in Serum or Plasma [facility] Carbon dioxide, tota l [Moles/volume] in Central venous blood [facility] Cocaine measurement, urine [facility] Creatinine [Mass/vol ume] in Serum or Plasma [facility] Erythrocyte mean cor puscular volume determination [facility] fentaNYL [Presence] in Urine by Screen method [facility] Glucose [Mass/volume ] in Serum or Plasma [facility] Hematocrit [Volume F raction] of Blood [facility] Hemoglobin [Mass/vol ume] in Blood [facility] Leukocytes [#/volume] in Blood [facility] Magnesium measurement [facility] Mean corpuscular hem oglobin concentration determination [facility] Mean corpuscular hem oglobin determination [facility] Measurement of renal function [facility] Methadone measurement, urine [facility] Neutrophil count [facility] Neutrophil percent differential count [facility] Patient Education [facility] Work Phone: Patient referral [facility] Work Phone: Phencyclidine [Prese nce] in Urine [facility] Platelets [#/volume] in Blood [facility] Potassium measurement [facility] Red blood cell count [facility] Red cell distributio n width determination [facility] Serum chloride measurement [facility] Sodium measurement [facility] Total protein measurement [facility] Urea nitrogen [Mass/ volume] in Serum or Plasma [facility] Urine cannabinoid measurement [facility] Urine opiate measurement [facility] Payers Date Payer Category Payer Self-pay [id number] 2020 Medicaid [id number] 2020 Medicare [id number] 2016 Unknown [id number] 2007 Unknown [id number] 1990 Unknown [id number] 2.16. [id number] Unknown [id number] 2.16.8 [id number] Unknown [id number] 2.16.8 [id number] Unknown [id number] 2.16.8 [id number] Unknown [id number] 2.16.8 [id number] Unknown [id number] 2.16.8 [id number] Unknown [id number] 2.16.8 [id number] Unknown [id number] 2.16.8 [id number] Unknown [id number] 2.16.8 [id number] Unknown [id number] 2.16.8 [id number] Unknown [id number] 2.16.8 [id number] Unknown [id number] 2.16.8 [id number] Unknown [id number] 2.16.8 [id number] Social History Date Type Detail Facility Start: 12-04-2018 End: 04-13-2023 Tobacco smoking status FLIS Unknown if ever smoked [facility] Start: 1990 Sex Assigned At Male [facility] Start: 11-02-2024 End: 11-02-2024 Tobacco smoking status NHIS Smokes tobacco daily (finding) [facility] Start: 11-02-2024 End: 11-04-2024 Sex Male (finding) [facility] Goals Date Patient Goal Desired Activity /State Functional Status Date Assessment Result Facility 11-03-2024 Functional status Ambulates;Bedside Commo de [facility] Work Phone: Mental Status Date Assessment Result Facility 11-03-2024 Cognitive function Voice/Name [facility] Work Phone: Clinical Notes 04-13-2023 to 11-04-2024 Note Date & Type Note Facility 11-04-2024 Note [facility] Records Department [address] [place] [address] Discharge Summary 11/04/24 0829 MR#: [id number] Acct: [id number] Name: AIMEE DUCKWORTH Rep #: [id number] : 1990 34 From: Román Sandoval MD PCP: Dr. Kamron Erickson MD Status:DIS IN Location: [place] [address] Providers Date of Admission: 11/02/24 Date of Discharge: 11/04/24 Primary Care Physician: Dr. Kamron Erickson MD Reason For Visit: INTENTIONAL DRUG OVERDOSE Diagnosis Discharge Diagnosis (1) Prolonged QT interval: Status: Acute Code(s): R94.31 - Abnormal electrocardiogram [ECG] [EKG] (2) Intentional overdose of trazodone: Status: Acute Code(s): T43.212A - Poisoning by selective serotonin and norepinephrine reuptake inhibitors, intentional self-harm, initial encounter Plan Patient is a 34-year-old gentleman admitted with intentional drug overdose 1. Intentional drug overdose with trazodone ??? Patient admitted to the intensive care unit for close monitoring. Initial QTc was 488. Patient did receive activated charcoal. Repeat EKG ordered for a.m. Patient was placed under suicide precaution ??? 11/03/2024 Patient was monitored in the intensive care unit overnight without any acute issue. QTc down to 450 this a.m. Patient medically stable to be evaluated by crisis team for transfer to an inpatient psych facility ??? Patient was discharged to an inpatient psych facility once bed became available 2. Schizophrenia ??? Patient is on trazodone as well as haloperidol given his lethargy above medications were held 4. Bipolar disorder ??? Patient is on valproic acid continue 4. Mild intermittent asthma ??? Currently not in exacerbation patient is on albuterol as needed for shortness of breath 5. GERD ??? Per patient currently not on any medication patient was placed on famotidine 6. Class II obesity with BMI of 39.2 ??? Complicating care weight loss advised 7. Tobacco dependence ??? Counseled on cessation, offered nicotine patch for tobacco cravings 8. DVT prophylaxis Low risk Time spent in the patient's overall evaluation,decision-making process, review of diagnostic data, adjustment of management, discussion with other providers, nursing nursing and ancillary staff involved in patient's care documentation, 36 Minutes A Medications at Discharge Home Medications divalproex 500 mg tablet,delayed release 1,000 mg PO BID 06/02/24 albuterol sulfate 90 mcg/actuation aerosol inhaler 1 - 2 puff inhalation Q4H PRN cough 11/02/24 bupropion HCl 300 mg 24 hr tablet, extended release 300 mg PO DAILY 11/02/24 escitalopram oxalate 20 mg tablet 20 mg PO DAILY 11/02/24 lorazepam 1 mg tablet 1 mg PO BID 11/02/24 paliperidone palmitate 234 mg/1.5 mL intramuscular syringe (Invega Sustenna) 234 mg IM Q30D 11/02/24 trazodone 50 mg tablet 50 mg PO QHS 11/02/24 Physical Exam Narrative GENERAL: Patient in no apparent distress, HEENT: Atraumatic; normocephalic EYES; Anicteric, Normal Conjunctiva NECK; supple, normal thyroid, RESPIRATORY: Diminished to auscultation CARDIOVASCULAR: Regular S1 S2, GI: soft, normoactive bowel sounds, : No Renal angle tenderness; EXTREMITIES: No edema, no clubbing, MUSCULOSKELETAL: no muscle wasting NEURO: Awake; no lateralizing signs. SKIN: No Rash PSYCH; Flat affect Weight / BMI Weight Weight: 131.088 kg Body Mass Index (BMI) 39.1 ABG / Lab / Microbiology Data 11/03/24 03:30 11/03/24 03:30 D/C Instructions Discharge Diet: No restrictions Discharge Activity: Return to Normal Activity Call your doctor if you observe: Fever of 101 or Higher, Shortness of breath, Fainting spells and Chest pain DC O2, CPAP, BIPAP Needs Home O2 Discharge instructions: No Meaningful Use Info Meaningful Use Meaningful Use Diagnoses (Choose all that apply): None applicable Ischemic Stroke Statin Dosing Therapy Reference: STATIN DOSE THERAPY REFERENCE: * Patients > 75 years receive moderate or high dose statin therapy. * Patients 75 years or YOUNGER should receive HIGH intensity statin dose unless contraindicated. You will be required to document reason for non-treatment if statin daily dose does not meet guidelines. HIGH DOSE STATIN THERAPY DAILY Atorvastatin > than or = to 40 mg Rosuvastatin > than or = to 20 mg Amlodipine + Atorvastatin > than or = to 2.5/40 mg Ezetimibe + Simvastatin 10/80 mg Simvastatin 80mg Discharge Plan Admission Admit Date/Time: 11/02/24 12:55 Attending Provider: Román Sandoval Primary Care Provider: Kamron Erickson Discharge Orders/Prescriptions Prescriptions: No Action trazodone 50 mg tablet 50 mg PO QHS albuterol sulfate 90 mcg/actuation HFA aerosol inhaler 1 - 2 puff inhalation Q4H PRN (Reason: cough) Invega Sustenna 234 mg/1.5 mL syringe 234 mg IM (more content not included)... [facility] 11-03-2024 Progress note Note Date/Time November 03, 2024 8:00am [facility] Medical Records Department [address] [place] [address] Progress Note - Hospitalist 11/03/24 0715 MR#: [id number] Acct: [id number] Name: AIMEE DUCKWORTH Rep #:[id number] : 1990 34 From: Román Sandoval MD PCP: Dr. Kamron Erickson MD Status:ADM IN Location: ICU ICU- Reason for Visit Reason for Visit: Diagnoses Abnormal electrocardiogram [ECG] [EKG] (11/02/24) Poisoning by selective serotonin and norepinephrine reuptake inhibitors, intentional self-harm, initial encounter (11/02/24) Subjective Subjective Patient is a 34-year-old gentleman admitted with intentional drug overdose. Patient was monitored in the intensive care unit overnight without any acute issue. QTc down to 450 this a.m. Patient medically stable to be evaluated by crisis team for transfer to an inpatient psych facility Objective Data Objective Data Vital Signs: Vital Signs Temp Pulse Resp BP Pulse Ox O2 Del Method O2 Flow Rate 98.8 F 66 28 H 110/66 95 Nasal Cannula 2 11/03/24 04:00 11/03/24 07:00 11/03/24 07:00 11/03/24 07:00 11/03/24 07:00 11/03/24 07:00 11/03/24 07:00 Oxygen Flow Rate (L/min) 2 Oxygen Delivery Method Nasal Cannula Weight: 131.088 kg Body Mass Index (BMI) 39.1 Intake & Output: Intake and Output for Last 24 Hours 11/01/24 11/02/24 11/03/24 23:59 23:59 23:59 Intake Total 897.92 / 897.92 1000 / 1000 Balance 897.92 / 897.92 1000 / 1000 Lab / Micro Data 11/03/24 03:30 11/03/24 03:30 Labs: Laboratory Results - last 24 hr 11/02/24 11:35: WBC 9.2, RBC 4.34 L, Hgb 13.6, Hct 40.5, MCV 93.3, MCH 31.3, MCHC 33.6, RDW Std Deviation 46.1 H, RDW Coeff of Rohith 13.5, Plt Count 197, MPV 9.5, Immature Gran % (Auto) 0.400, Neut % (Auto) 54.1, Lymph % (Auto) 24.9, [place] % (Auto) 18.0 H, Eos % (Auto) 2.1, Baso % (Auto) 0.5, Absolute Neuts (auto) 5.0, Absolute Lymphs (auto) 2.30, Nucleated RBC % 0, Differential Comment SCANNED, Sodium 136, Potassium 3.4, Chloride 99, Carbon Dioxide 23.4, Anion Gap 14, BUN 9, Creatinine 1.22 H, Estim Creat Clear Calc 119.42, Est GFR (MDRD) Non-Af 80, BUN/Creatinine Ratio 7.4 L, Glucose 161 H, Calcium 8.0, Total Bilirubin 0.15, AST 24, ALT 21, Alkaline Phosphatase 74, Total Protein 5.9, Albumin 3.9, Globulin 2.0 L, Albumin/Globulin Ratio 2.0, Salicylates 1.8 L, Acetaminophen 10.5, Ethyl Alcohol < 10.1 11/02/24 12:42: Urine Opiates Screen NEGATIVE, U Buprenorphine Qual NEGATIVE, Ur Oxycodone Screen NEGATIVE, Urine Methadone Screen NEGATIVE, Urine Fentanyl Screen NEGATIVE, Ur Barbiturates Screen NEGATIVE, Ur Phencyclidine Scrn NEGATIVE, Ur Amphetamines Screen PRESUMPTIVE POSITIVE, U Benzodiazepines Scrn PRESUMPTIVE POSITIVE, Urine Cocaine Screen NEGATIVE, U Cannabinoids Screen PRESUMPTIVE POSITIVE 11/03/24 03:30: WBC 5.9, RBC 4.04 L, Hgb 12.6 L, Hct 38.0 L, MCV 94.1 H, MCH 31.2, MCHC 33.2, RDW Std Deviation 48.2 H, RDW Coeff of Rohith 13.8, Plt Count 172, MPV 9.6, Immature Gran % (Auto) 0.500, Neut % (Auto) 63.5, Lymph % (Auto) 19.2, [place] % (Auto) 16.0 H, Eos % (Auto) 0.5, Baso % (Auto) 0.3, Absolute Neuts (auto) 3.8, Absolute Lymphs (auto) 1.14, Nucleated RBC % 0, Sodium 137, Potassium 4.3, Chloride 104, Carbon Dioxide 24.6, Anion Gap 8, BUN 7, Creatinine 1.01, Estim Creat Clear Calc 145.41, Est GFR (MDRD) Non-Af 100, BUN/Creatinine Ratio 6.6 L, Glucose 97, Calcium 7.8, Phosphorus 3.5, Magnesium 2.4 H, Total Bilirubin 0.16, AST 22, ALT 19, Alkaline Phosphatase 66, Total Protein 5.6 L, Albumin 3.6, Globulin 1.9 L, Albumin/Globulin Ratio 1.9 Physical Exam Narrative GENERAL: Patient in no apparent distress, HEENT: Atraumatic; normocephalic EYES; Anicteric, Normal Conjunctiva NECK; supple, normal thyroid, RESPIRATORY: Diminished to auscultation CARDIOVASCULAR: Regular S1 S2, GI: soft, normoactive bowel sounds, : No Renal angle tenderness; EXTREMITIES: No edema, no clubbing, MUSCULOSKELETAL: no muscle wasting NEURO: Awake; no lateralizing signs. SKIN: No Rash PSYCH; Flat affect Assessment & Plan Assessment/Plan (1) Prolonged QT interval: (2) Intentional overdose of trazodone: PLAN: Plan Patient is a 34-year-old gentleman admitted with intentional drug overdose 1. Intentional drug overdose with trazodone ? Patient admitted to the intensive care unit for close monitoring. Initial QTc was 488. Patient did receive activated charcoal. Repeat EKG ordered for a.m. Patient was placed under suicide precaution ? 11/03/2024 Patient was monitored in the intensive care unit overnight without any acute issue. QTc down to 450 this a.m. Patient medically stable to be evaluated by crisis team for transfer to an inpatient psych facility 2. Schizophrenia ? Patient is on trazodone as well as haloperidol given his lethargy above medications were held 4. Bipolar disorder ? Patient is on valproic acid continue 4. Mild intermittent asthma ? Currently not in exacerbation patient is on albuterol as needed for shortness of breath 5. GERD ? Per patient currently not on any medication patient was placed on famotidine 6. Class II obesity with BMI of 39.2 ? Complicating care weight loss advised 7. Tobacco dependence ? Counseled on cessation, offered nicotine patch for tobacco cravings 8. DVT prophylaxis Low risk Time spent in the patient's overall evaluation,decision-making process, review of diagnostic data, adjustment of management, discussion with other providers, nursing nursing and ancillary staff involved in patient's care documentation, 36 Minutes A Charges/Coding Visit Charges Inpatient E&M: 60998 Subs Hosp L2 11/03/24 0800 <Electronically signed by Román Sandoval MD> Cosigner Signature (if applicable): CC: ~ Signed [facility] Work Phone: 1(121) 755-965804-02-2025 Progress note [facility] Medical Records Department [address] [place] [address] Progress Note - Hospitalist 11/03/2415 MR#: [id number] Acct: [id number] Name: AIMEE DUCKWORTH Rep #:[id number] : 1990 34 From: Román Sandoval MD PCP: Dr. Kamron Erickson MD Status:ADM [facility] Visit Reason for Visit: Diagnoses Abnormal electrocardiogram [ECG] [EKG] (11/02/24) Poisoning by selective serotonin and norepinephrine reuptake inhibitors, intentional self-harm, initial encounter (11/02/24) Subjective Subjective Patient is a 34-year-old gentleman admitted with intentional drug overdose. Patient was monitored in the intensive care unit overnight without any acute issue. QTc down to 450 this a.m. Patient medically stable to be evaluated by crisis team for transfer to an inpatient psych facility Objective Data Objective Data Vital Signs: Vital Signs Temp Pulse Resp BP Pulse Ox O2 Del Method O2 Flow Rate 98.8 F 66 28 H 110/66 95 Nasal Cannula 2 11/03/24 04:00 11/03/24 07:00 11/03/24 07:00 11/03/24 07:00 11/03/24 07:00 11/03/24 07:00 11/03/24 07:00 Oxygen Flow Rate (L/min) 2 Oxygen Delivery Method Nasal Cannula Weight: 131.088 kg Body Mass Index (BMI) 39.1 Intake & Output: Intake and Output for Last 24 Hours 03/31/25 04/01/25 04/02/25 23:59 23:59 23:59 Intake Total 897.92 / 897.92 1000 / 1000 Balance 897.92 / 897.92 1000 / 1000 Lab / Micro Data 11/03/24 03:30 11/03/24 03:30 Labs: Laboratory Results - last 24 hr 11/02/24 11:35: WBC 9.2, RBC 4.34 L, Hgb 13.6, Hct 40.5, MCV 93.3, MCH 31.3, MCHC 33.6, RDW Std Deviation 46.1 H, RDW Coeff of Rohith 13.5, Plt Count 197, MPV 9.5, Immature Gran % (Auto) 0.400, Neut % (Auto) 54.1, Lymph % (Auto) 24.9, [place] % (Auto) 18.0 H, Eos % (Auto) 2.1, Baso % (Auto) 0.5, AbsoluteNeuts (auto) 5.0, Absolute Lymphs (auto) 2.30, Nucleated RBC % 0, Differential Comment SCANNED, Sodium 136, Potassium 3.4, Chloride 99, Carbon Dioxide 23.4, Anion Gap 14, BUN 9, Creatinine 1.22 H, Estim Creat Clear Calc 119.42, Est GFR (MDRD) Non-Af 80, BUN/Creatinine Ratio 7.4 L, Glucose 161 H, Calcium 8.0, Total Bilirubin 0.15, AST 24, ALT 21, Alkaline Phosphatase 74, Total Protein 5.9, Albumin3.9, Globulin 2.0 L, Albumin/Globulin Ratio 2.0, Salicylates 1.8 L, Acetaminophen 10.5, Ethyl Alcohol < 10.1 11/02/24 12:42: Urine Opiates Screen NEGATIVE, U Buprenorphine Qual NEGATIVE, Ur Oxycodone Screen NEGATIVE, Urine Methadone Screen NEGATIVE, Urine Fentanyl Screen NEGATIVE, Ur Barbiturates Screen NEGATIVE, Ur Phencyclidine Scrn NEGATIVE, Ur Amphetamines Screen PRESUMPTIVE POSITIVE, U Benzodiazepines Scrn PRESUMPTIVE POSITIVE, Urine Cocaine Screen NEGATIVE, U Cannabinoids Screen PRESUMPTIVE POSITIVE 11/03/24 03:30: WBC 5.9, RBC 4.04 L, Hgb 12.6 L, Hct 38.0 L, MCV 94.1 H, MCH 31.2, MCHC 33.2, RDW Std Deviation 48.2 H, RDW Coeff of Rohith 13.8, Plt Count 172, MPV 9.6, Immature Gran % (Auto) 0.500, Neut % (Auto) 63.5, Lymph % (Auto) 19.2, [place] % (Auto) 16.0 H, Eos % (Auto) 0.5, Baso % (Auto) 0.3, Absolute Neuts (auto) 3.8, Absolute Lymphs (auto) 1.14, Nucleated RBC % 0, Sodium 137, Potassium 4.3, Chloride 104, Carbon Dioxide 24.6, Anion Gap 8, BUN 7, Creatinine 1.01, Estim Creat Clear Calc 145.41, Est GFR (MDRD) Non-Af 100, BUN/Creatinine Ratio 6.6 L, Glucose 97, Calcium 7.8, Phosphorus 3.5, Magnesium 2.4 H, Total Bilirubin 0.16, AST 22, ALT 19, Alkaline Phosphatase 66, Total Protein 5.6 L, A lbumin 3.6, Globulin 1.9 L, Albumin/Globulin Ratio 1.9 Physical Exam Narrative GENERAL: Patient in no apparent distress, HEENT: Atraumatic; normocephalic EYES; Anicteric, Normal Conjunctiva NECK; supple, normal thyroid, RESPIRATORY: Diminished to auscultation CARDIOVASCULAR: Regular S1 S2, GI: soft, normoactive bowel sounds, : No Renal angle tenderness; EXTREMITIES: No edema, no clubbing, MUSCULOSKELETAL: no muscle wasting NEURO: Awake; no lateralizing signs. SKIN: No Rash PSYCH; Flat affect Assessment & Plan Assessment/Plan (1) Prolonged QT interval: (2) Intentional overdose of trazodone: PLAN: Plan Patient is a 34-year-old gentleman admitted with intentional drug overdose 1. Intentional drug overdose with trazodone ? Patient admitted to the intensive care unit for close monitoring. Initial QTc was 488. Patient did receive activated charcoal. Repeat EKG ordered for a.m. Patient was placed under suicide precaution ? 11/03/2024 Patient was monitored in the intensive care unit overnight without any acute issue. QTc down to 450 this a.m. Patient medically stable to be evaluated by crisis team for transfer to an inpatient psych facility 2. Schizophrenia ? Patient is on trazodone as well as haloperidol given his lethargy above medications were held 4. Bipolar disorder ? Patient is on valproic acid continue 4. Mild intermittent asthma ? Currently not in exacerbation patient is on albuterol as needed for shortness of breath 5. GERD ? Per patient currently not on any medication patient was placed on famotidine 6. Class II obesity with BMI of 39.2 ? Complicating care weight loss advised 7. Tobacco dependence ? Counseled on cessation, offered nicotine patch for tobacco cravings 8. DVT prophylaxis Low risk Time spent in the patient's overall evaluation,decision-making process, review of diagnostic data, adjustment of management, discussion with other providers, nursing nursing and ancillary staff involved in patient's care documentation, 36 Minutes A Charges/Coding Visit Charges Inpatient E&M: 05419 Subs Hosp L2 11/03/24 0800 Cosigner Signature (if applicable): CC: ~ Signed [facility]04-01-2025 History and physical note Author Román Sandoval [facility] Note Date/Time November 02, 2024 1:11 pm [facility] Medical Records Department [address] [place] [address] H&P Exam - Hospitalist 11/02/24 1306 MR#: [id number] Acct: [id number] Name: AIMEE DUCKWORTH Rep #:[id number] : 1990 34 From: Román Sandoval MD PCP: Dr. Kamron Erickson MD Status:REG ER Location: ED HPI - General General Date of Admission: 11/02/24 Date of Service: 11/02/24 Chief Complaint: Intentional drug overdose HPI Narrative AIMEE DUCKWORTH, is a 34 M with past medical history significant for schizophrenia,bipolar disorder depression with anxiety, mild intermittent asthma who presentedto the emergency department following an intentional drug overdose. Patient hadapparently taken 64 tablets of 50 mg of trazodone in an attempt to harm himself. Patient however admitted to not being suicidal at the time of my assessment in the emergency department. Initial workup did reveal prolonged QT C of 488. Patient did receive activated charcoal and admitted to the intensive care unit for further management. PFSH Medical History Schizophrenia Migraines Asthma Schizophrenia Bipolar disorder Depression Anxiety Smoker Home Medications ?Medication ?Instructions ?Recorded ?Last Taken ?Type divalproex 500 mg tablet,delayed 1,000 mg PO BID 06/0211/02/24 History release albuterol sulfate 90 mcg/actuation 1 - 2 puff inhalati on Q4H PRN cough 11/02/24 Unknown History aerosol inhaler bupropion HCl 300 mg 24 hr tablet, 300 mg PO DAILY 08/2811/02/24 History extended release escitalopram oxalate 20 mg tablet 20 mg PO DAILY 11/0211/02/24 History lorazepam 1 mg tablet 1 mg PO BID 11/02/24 Unknown History paliperidone palmitate 234 mg/1.5 234 mg IM Q30D 11/0210/09/24 History mL intramuscular syringe (Invega Sustenna) trazodone 50 mg tablet 50 mg PO QHS 11/02/24 Unknow n History Allergy/AdvReac Type Severity Reaction Status Date / Time Sulfa (Sulfonamide Allergy Unknown Verified 11/02/24 11:30 Antibiotics) sulfisoxazole (From Allergy Hives Verified 11/02/24 11:30 Gantrisin) Social History (System 06/10/24 @ 07:12 by Fernanda Roblero) household members: family Smoking Status: Current every day smoker tobacco type: cigarettes and e- cigarettes ROS ROS Narrative GENERAL: denies fever, chills, HEENT: denies headache, sinus congestion, RESPIRATORY: denies cough, sputum production, CARDIAC: denies chest pain, palpitations, GASTROINTESTINAL: denies abdominal pain, nausea, GENITOURINARY: denies dysuria, urgency, EXTREMITY: denies swelling MUSCULOSKELETAL: denies current joint pain NEUROLOGIC: denies focal numbness, HEMATOLOGIC: denies easy bruising INTEGUMENT: denies rashes PSYCHIATRIC: suicidal Vital Signs Vital Signs Vital Signs: 11/02/24 11:24 11/02/24 12:23 11/02/24 13:00 Temperature 97.7 F L Temperature Source Oral Pulse Rate 67 74 87 Respiratory Rate 14 18 16 Blood Pressure 105/64 117/78 107/78 Blood Pressure Mean 77 91 87 Pulse Ox 94 98 98 Oxygen Delivery Method Room Air Weight Weight: 131 kg Body Mass Index (BMI) 39.2 Physical Exam Narrative GENERAL: Somewhat somnolent but able to maintain a conversation HEENT: Atraumatic; normocephalic EYES; Anicteric, Normal Conjunctiva NECK; supple, normal thyroid, RESPIRATORY: Diminished to auscultation CARDIOVASCULAR: Regular S1 S2, GI: soft, normoactive bowel sounds, : No Renal angle tenderness; EXTREMITIES: No edema, no clubbing, MUSCULOSKELETAL: no muscle wasting NEURO: Awake; no lateralizing signs. SKIN: No Rash PSYCH; Flat affect Results Lab / Micro Data 11/02/24 11:35 11/02/24 11:35 Labs: Laboratory Results - last 24 hr 11/02/24 11:35: WBC 9.2, RBC 4.34 L, Hgb 13.6, Hct 40.5, MCV 93.3, MCH 31.3, MCHC 33.6, RDW Std Deviation 46.1 H, RDW Coeff of Rohith 13.5, Plt Count 197, MPV 9.5, Immature Gran % (Auto) 0.400, Neut % (Auto) 54.1, Lymph % (Auto) 24.9, [place]% (Auto) 18.0 H, Eos % (Auto) 2.1, Baso % (Auto) 0.5, Absolute Neuts (auto) 5.0,Absolute Lymphs (auto) 2.30, Nucleated RBC % 0, Differential Comment SCANNED, Sodium 136, Potassium 3.4, Chloride 99, Carbon Dioxide 23.4, Anion Gap 14, BUN 9, Creatinine 1.22 H, Estim Creat Clear Calc 119.42, Est GFR (MDRD) Non-Af 80, BUN/Creatinine Ratio 7.4 L, Glucose 161 H, Calcium 8.0, Total Bilirubin 0.15, AST24, ALT 21, Alkaline Phosphatase 74, Total Protein 5.9, Albumin 3.9, Globulin 2.0 L, Albumin/Globulin Ratio 2.0, Salicylates 1.8 L, Acetaminophen 10.5, Ethyl Alcohol < 10.1 Assessment & Plan Assessment/Plan (1) Prolonged QT interval: (2) Intentional overdose of trazodone: PLAN: Plan Patient is a 34-year-old gentleman admitted with intentional drug overdose 1. Intentional drug overdose with trazodone ? Patient admitted to the intensive care unit for close monitoring. Initial QTcwas 488. Patient did receive activated charcoal. Repeat EKG ordered for a.m. Patient was placed under suicide precaution 2. Schizophrenia ? Patient is on trazodone as well as haloperidol given his lethargy above medications were held 4. Bipolar disorder ? Patient is on valproic acid continue 4. Mild intermittent asthma ? Currently not in exacerbation patient is on albuterol as needed for shortness of breath 5. GERD ? Per patient currently not on any medication patient was placed on famotidine 6. Class II obesity with BMI of 39.2 ? Complicating care weight loss advised 7. Tobacco dependence ? Counseled on cessation, offered nicotine patch for tobacco cravings 8. DVT prophylaxis Low risk Time spent in the patient's overall evaluation,decision-making process, review of diagnostic data, adjustment of management, discussion with other providers, nursing nursing and ancillary staff involved in patient's care documentation, 75 Minutes Advance planning; did discuss patient's father regarding advanced directives aswell as CODE STATUS. Did explain the various scenarios involved ( FULL CODE, DNR CCA, DNR CCA with no intubation, and DNR CC and what each meant) plan is forpatient to remain full code at this point. Order was placed. Time spent on discussion 16 minutes. Charges/Coding Multi Select Codes Visit Charges Visit Charges: 90925 Init Hosp Hospitalists' Procedures Procedures: 54309 Advncd Care Plan 30 Min 11/02/24 1311 <Electronically signed by Román Sandoval MD> Cosigner Signature (if applicable): CC: Dr. Román Sandoval MD; Dr. Kamron Erickson MD~ Signed [facility] Work Phone: 1(602) 971-481604-01-2025 Discharge summary Author Tramaine Tovar [facility] Note Date/Time November 02, 2024 12:[address] [facility] Medical Records Department [address] [place] [address] Emergency Department Summary 11/02/24 MR#: [id number] Acct: [id number] Name: AIMEE DUCKWORTH Rep #:[id number] : 1990 34 From: Tramaine Tovar MD PCP: Dr. Kamron Erickson MD Status:REG ER Location: ED HPI History of Present Illness Chief Complaint: Overdose Detail of Chief Complaint: Suicide attempt, took 6450 mg trazodone tablets 30 to45 minutes PIECE HAND Informant: patient Onset/Context/Timing Onset: Hours Context: Sudden Onset Timing: Continuous Quality: Sleepy Location: Presents from home Mechanism/Context: Yes other Current Severity: Severe Maximum Severity: Severe Worsened by: Intentional overdose Relieved by: Not applicable Narrative Narrative: Patient is a 34-year-old male. He has history of depression. He intentionally took 6450 mg tablets of trazodone to harm himself. This was taken 30 to 45 minutes prior to arrival. Since his GC assess 15 he received 50 mg of activatedcharcoal. Nurse informing he vomited after arrival. She did not see pill fragments. He states he intended to harm himself. He now states he does not want to and wants me to save his life. Patient has attempted suicide in [place] [facility]. Patient has been hospitalized for suicidal ideation/attempt. Patient is awake but not alert. He has no complaints at this time other than he does not want to . Prior similar symptoms: Yes Recent Illness/Hospitalization: No PFSH PFSH Medical History Schizophrenia Migraines Asthma Schizophrenia Bipolar disorder Depression Anxiety Smoker Home Medications ?Medication ?Instructions ?Recorded ?Last Taken ?Type divalproex 500 mg tablet,delayed 500 mg PO BID 4 Unknown History release haloperidol 5 mg tablet 5 mg PO BID 08/03/24 Unknown History risperidone 200 mg/0.56 mL 200 mg subcut .Q2MON Unknown History subcutaneous extend release susp syringe (Uzedy) albuterol sulfate 90 mcg/actuation 1 - 2 puff inhalati on Q4H PRN PRN 11/02/24 Unknown History aerosol inhaler cough trazodone 50 mg tablet 50 mg PO QHS 11/02/24 Unknow n History Allergy/AdvReac Type Severity Reaction Status Date / Time Sulfa (Sulfonamide Allergy Unknown Verified 11/02/24 11:30 Antibiotics) sulfisoxazole (From Allergy Hives Verified 11/02/24 11:30 Gantrisin) Social History (System 06/10/24 @ 07:12 by Fernanda Roblero) household members: family Smoking Status: Current every day smoker tobacco type: cigarettes and e- cigarettes ROS ROS ED Constitutional Constitutional ED: Denies chills, fever(s), subjective or sweats Eyes Eyes: Reports blurry vision ENT ENT ED: Denies ear pain, rhinorrhea or sore throat Cardiovascular Cardiovascular: Denies chest pain or palpitations Respiratory/Chest Respiratory/Chest: Denies cough, dyspnea or dyspnea on exertion Gastrointestinal Gastrointestinal: Reports nausea and vomiting; Denies abdominal pain, constipation, diarrhea or melena Genitourinary Genitourinary ED: Denies dysuria, hematuria or urinary frequency Musculoskeletal Musculoskeletal: Denies arthralgias or myalgias Integumentary Reports rash Neurologic Neurologic: Denies headache(s) or paresthesias Psychiatric Psychiatric: Reports anxiety, depression, suicidal ideation and suicidal thoughts Hematologic/Lymphatic Hematologic/Lymphatic: Denies easy bruising EXAM Physical Exam Const Vital Signs: 11/02/24 11:24 11/02/24 12:23 Temperature 97.7 F L Temperature Source Oral Pulse Rate 67 74 Respiratory Rate 14 18 Blood Pressure 105/64 117/78 Blood Pressure Mean 77 91 Pulse Ox 94 98 Oxygen Delivery Method Room Air Positive well nourished and well developed Constitutional Narrative: BMI is 39.2. He appears no distress. He opens his eyes to verbal. He states he does not want to any longer. General Appearance ED: well developed; Negative for pallor HEENT normocephalic and atraumatic; Negative for cyanosis of lips/distal nose or tenderness Eyes PERRL and EOMs intact bilaterally Eyes Narrative: There is no nystagmus. General Eye ED: Negative for pale conjunctiva or scleral icterus Neck full ROM, no lymphadenopathy and supple Cardio regular rate, regular rhythm, S1 normal heart sound, S2 normal heart sound and no murmurs GI non-tender, non-distended and no masses Auscultation: normoactive bowel sounds Palpation: soft Back/Spine no CVA tenderness Neuro oriented x3, CN's II-XII intact bilaterally and no sensory deficits noted Neuro Narrative: Gait was not tested. Has no dysmetria. There is no clonus Babinski sign. Sensorium / Orientation: Negative for alert Psych Mood & Affect: depressed Skin Skin Narrative: Blanching erythematous rash face and upper torso. There are no hives. There isno petechiae. This is not raised. General Skin Exam: Negative for jaundice or pallor Lesions: no lesions Rashes: No no rashes MDM MDM MDM Narrative Medical decision making narrative: Intentional overdose with significant mount of trazodone.Symptoms from overdose are difficulty breathing, respiratory arrest, chest pain, hypotension, bradycardia, drowsiness, lack of coordination, seizure. Patient received activated charcoal since this occurred 30 to 45 minutes prior to arrival and he has a GCS of 14 since he opened his eyes to verbal. Appropriate blood work was ordered. He will need admission for medical clearance prior to transfer to psychiatric facility. I will complete a peak shape. Lab Data Attestation: I reviewed the patient's lab results. Lab results narrative: CBC is unremarkable. Comprehensive metabolic panel visit elevated creatinine of1.22 with an estimated GFR of 80. Glucose is elevated 161 with a normal CO2 anion gap. Alcohol is less than 10.1. Acetaminophen is 10.5 which is not significant. Salicylate level is low at 1.8. Labs: Laboratory Results - last 24 hr 11/02/24 11:35 WBC 9.2 RBC 4.34 L Hgb 13.6 Hct 40.5 MCV 93.3 MCH 31.3 MCHC 33.6 RDW Std Deviation 46.1 H RDW Coeff of Rohith 13.5 Plt Count 197 MPV 9.5 Immature Gran % (Auto) 0.400 Neut % (Auto) 54.1 Lymph % (Auto) 24.9 [place] % (Auto) 18.0 H Eos % (Auto) 2.1 Baso % (Auto) 0.5 Absolute Neuts (auto) 5.0 Absolute Lymphs (auto) 2.30 Nucleated RBC % 0 Differential Comment SCANNED Sodium 136 Potassium 3.4 Chloride 99 Carbon Dioxide 23.4 Anion Gap 14 BUN 9 Creatinine 1.22 H Estim Creat Clear Calc 119.42 Est GFR (MDRD) Non-Af 80 BUN/Creatinine Ratio 7.4 L Glucose 161 H Calcium 8.0 Total Bilirubin 0.15 AST 24 ALT 21 Alkaline Phosphatase 74 Total Protein 5.9 Albumin 3.9 Globulin 2.0 L Albumin/Globulin Ratio 2.0 Salicylates 1.8 L Acetaminophen 10.5 Ethyl Alcohol < 10.1 EKG Initial EKG: Attestation: I personally reviewed and interpreted this EKG as follows: Interpretation: Sinus Rhythm (Normal sinus rhythm rate of 67. This is abnormal since he has a prolonged QT which may be due to the trazodone. RI interval is under 58 ms. Cures duration 110 ms. QT duration 458 ms. [place] is normal.) Management Discussion w/another healthcare provider: Hospitalist (Hospitalist was paged at 0142 for admission. Case was discussed with Dr. Serrato who accepted patient. Full admit ICU) Critical Care Time Critical Care Time: Yes Critical care time (excluding procedures): 30-74 minutes (33), Including time spent: (History, physical, documentation, independent rotation laboratory results and EKG), Discussing w/Patient &/or Family/Senior Program Analyst, Discussing w/Consultants and Arranging Admission or Transfer Discharge Plan Dx/Rx/DC Orders Clinical Impression: Intentional overdose, Prolonged QT interval, Intentional overdose of trazodone,Somnolence, Depression, major Disposition Disposition: [facility] What to do if you have Problems For any increased pain, shortness of breath, bleeding, nausea or vomiting, chestpain, or any unexpected problems, contact your Primary Care Provider. Call [facility] ([phone]) or report to the closest Emergency Room. Call 911 if necessary. 11/02/24 1257 <Electronically signed by Tramaine Tovar MD> Cosigner Signature (if applicable): CC: Dr. Kamron Erickson MD ~ Signed [facility] Work Phone: 1(384) 967-608204-01-2025 Evaluation note* Diagnosis Onset Date Resolution Status Admit Date Intentional overdose of trazodone acute November 02, 2024 12:55pm Prolonged QT interval acute Nov 12:55pm [facility] Work Phone: 1(831) 457-641204-01-2025 History and physical note [facility] Medical Records Department [address] [place] [address] H&P Exam - Hospitalist 11/02/24 1306 MR#: [id number] Acct: [id number] Name: AIMEE DUCKWORTH Rep #:[id number] : 1990 34 From: Román Sandoval MD PCP: Dr. Kamron Erickson MD Status:REG ER Location: ED HPI - General General Date of Admission: 11/02/24 Date of Service: 11/02/24 Chief Complaint: Intentional drug overdose HPI Narrative AIMEE DUCKWORTH, is a 34 M with past medical history significant for schizophrenia,bipolar disorder depression with anxiety, mild intermittent asthma who presentedto the emergency department following an intentional drug overdose. Patient hadapparently taken 64 tablets of 50 mg of trazodone in an attempt to harm himself. Patient however admitted to not being suicidal at the time of my assessment in the emergency department. Initial workup did reveal prolonged QT C of 488. Patient did receive activated charcoal and admitted to the intensive care unit for further management. PFSH Medical History Schizophrenia Migraines Asthma Schizophrenia Bipolar disorder Depression Anxiety Smoker Home Medications ?Medication ?Instructions ?Recorded ?Last Taken ?Type divalproex 500 mg tablet,delayed 1,000 mg PO BID 06/0211/02/24 History release albuterol sulfate 90 mcg/actuation 1 - 2 puff inhalati on Q4H PRN cough 11/02/24 Unknown History aerosol inhaler bupropion HCl 300 mg 24 hr tablet, 300 mg PO DAILY 08/2811/02/24 History extended release escitalopram oxalate 20 mg tablet 20 mg PO DAILY 11/0211/02/24 History lorazepam 1 mg tablet 1 mg PO BID 11/02/24 Unknown History paliperidone palmitate 234 mg/1.5 234 mg IM Q30D 11/0210/09/24 History mL intramuscular syringe (Invega Sustenna) trazodone 50 mg tablet 50 mg PO QHS 11/02/24 Unknow n History Allergy/AdvReac Type Severity Reaction Status Date / Time Sulfa (Sulfonamide Allergy Unknown Verified 11/02/24 11:30 Antibiotics) sulfisoxazole (From Allergy Hives Verified 11/02/24 11:30 Gantrisin) Social History (System 06/10/24 @ 07:12 by Fernanda Roblero) household members: family Smoking Status: Current every day smoker tobacco type: cigarettes and e-cigarettes ROS ROS Narrative GENERAL: denies fever, chills, HEENT: denies headache, sinus congestion, RESPIRATORY: denies cough, sputum production, CARDIAC: denies chest pain, palpitations, GASTROINTESTINAL: denies abdominal pain, nausea, GENITOURINARY: denies dysuria, urgency, EXTREMITY: denies swelling MUSCULOSKELETAL: denies current joint pain NEUROLOGIC: denies focal numbness, HEMATOLOGIC: denies easy bruising INTEGUMENT: denies rashes PSYCHIATRIC: suicidal Vital Signs Vital Signs Vital Signs: 11/02/24 11:24 11/02/24 12:23 11/02/24 13:00 Temperature 97.7 F L Temperature Source Oral Pulse Rate 67 74 87 Respiratory Rate 14 18 16 Blood Pressure 105/64 117/78 107/78 Blood Pressure Mean 77 91 87 Pulse Ox 94 98 98 Oxygen Delivery Method Room Air Weight Weight: 131 kg Body Mass Index (BMI) 39.2 Physical Exam Narrative GENERAL: Somewhat somnolent but able to maintain a conversation HEENT: Atraumatic; normocephalic EYES; Anicteric, Normal Conjunctiva NECK; supple, normal thyroid, RESPIRATORY: Diminished to auscultation CARDIOVASCULAR: Regular S1 S2, GI: soft, normoactive bowel sounds, : No Renal angle tenderness; EXTREMITIES: No edema, no clubbing, MUSCULOSKELETAL: no muscle wasting NEURO: Awake; no lateralizing signs. SKIN: No Rash PSYCH; Flat affect Results Lab / Micro Data 11/02/24 11:35 11/02/24 11:35 Labs: Laboratory Results - last 24 hr 11/02/24 11:35: WBC 9.2, RBC 4.34 L, Hgb 13.6, Hct 40.5, MCV 93.3, MCH 31.3, MCHC 33.6, RDW Std Deviation 46.1 H, RDW Coeff of Rohith 13.5, Plt Count 197, MPV 9.5, Immature Gran % (Auto) 0.400, Neut % (Auto) 54.1, Lymph % (Auto) 24.9, [place]% (Auto) 18.0 H, Eos % (Auto) 2.1, Baso % (Auto) 0.5, Absolute Neuts (auto) 5.0,Absolute Lymphs (auto) 2.30, Nucleated RBC % 0, Differential Comment SCANNED, Sodium 136, Potassium 3.4, Chloride 99, Carbon Dioxide 23.4, Anion Gap 14, BUN 9, Creatinine 1.22 H, Estim Creat Clear Calc 119.42, Est GFR (MDRD) Non- Af 80, BUN/Creatinine Ratio 7.4 L, Glucose 161 H, Calcium 8.0, Total Bilirubin 0.15, AST24, ALT 21, Alkaline Phosphatase 74, Total Protein 5.9, Albumin 3.9, Globulin 2.0 L, Albumin/Globulin Ratio 2.0, Salicylates 1.8 L, Acetaminophen 10.5, Ethyl Alcohol < 10.1 Assessment & Plan Assessment/Plan (1) Prolonged QT interval: (2) Intentional overdose of trazodone: PLAN: Plan Patient is a 34-year-old gentleman admitted with intentional drug overdose 1. Intentional drug overdose with trazodone ? Patient admitted to the intensive care unit for close monitoring. Initial QTcwas 488. Patient didreceive activated charcoal. Repeat EKG ordered for a.m. Patient was placed under suicide precaution 2. Schizophrenia ? Patient is on trazodone as well as haloperidol given his lethargy above medications were held 4. Bipolar disorder ? Patient is on valproic acid continue 4. Mild intermittent asthma ? Currently not in exacerbation patient is on albuterol as needed for shortness of breath 5. GERD ? Per patient currently not on any medication patient was placed on famotidine 6. Class II obesity with BMI of 39.2 ? Complicating care weight loss advised 7. Tobacco dependence ? Counseled on cessation, offered nicotine patch for tobacco cravings 8. DVT prophylaxis Low risk Time spent in the patient's overall evaluation,decision-making process, review of diagnostic data, adjustment of management, discussion with other providers, nursing nursing and ancillary staff involved in patient's care documentation, 75 Minutes Advance planning; did discuss patient's father regarding advanced directives aswell as CODE STATUS.Did explain the various scenarios involved ( FULL CODE, DNR CCA, DNR CCA with no intubation, and DNR CC and what each meant) plan is forpatient to remain full code at this point. Order was placed. Time spent on discussion 16 minutes. Charges/Coding Multi Select Codes Visit Charges Visit Charges: 98640 Init Hosp L3 Hospitalists' Procedures Procedures: 90537 Advncd Care Plan 30 Min 11/02/24 1311 Cosigner Signature (if applicable): CC: Dr. Román Sandoval MD; Dr. Kamron Erickson MD~ Signed [facility]04-01-2025 Discharge summary [facility] Medical Records Department [address] [place] [address] Emergency Department Summary 11/02/24 MR#: [id number] Acct: [id number] Name: AIMEE DUCKWORTH Rep #:[id number] : 1990 34 From: Tramaine Tovar MD PCP: Dr. Kamron Erickson MD Status:REG ER Location: ED HPI History of Present Illness Chief Complaint: Overdose Detail of Chief Complaint: Suicide attempt, took 6450 mg trazodone tablets 30 to45 minutes PIECE HAND Informant: patient Onset/Context/Timing Onset: Hours Context: Sudden Onset Timing: Continuous Quality: Sleepy Location: Presents from home Mechanism/Context: Yes other Current Severity: Severe Maximum Severity: Severe Worsened by: Intentional overdose Relieved by: Not applicable Narrative Narrative: Patient is a 34-year-old male. He has history of depression. He intentionally took 6450 mg tablets of trazodone to harm himself. This was taken 30 to 45 minutes prior to arrival. Since his GC assess 15 he received 50 mg of activatedcharcoal. Nurse informing he vomited after arrival. She did not seepill fragments. He states he intended to harm himself. He now states he does not want to and wants me to save his life. Patient has attempted suicide in [facility]. Patient has been hospitalized forsuicidal ideation/attempt. Patient is awake but not alert. He has no complaints at this time other than he does not want to . Prior similar symptoms: Yes Recent Illness/Hospitalization: No PFSH PFSH Medical History Schizophrenia Migraines Asthma Schizophrenia Bipolar disorder Depression Anxiety Smoker Home Medications ?Medication ?Instructions ?Recorded ?Last Taken ?Type divalproex 500 mg tablet,delayed 500 mg PO BID 4 Unknown History release haloperidol 5 mg tablet 5 mg PO BID 08/03/24 Unknown History risperidone 200 mg/0.56 mL 200 mg subcut .Q2MON Unknown History subcutaneous extend release susp syringe (Uzedy) albuterol sulfate 90 mcg/actuation 1 - 2 puff inhalati on Q4H PRN PRN 11/02/24 Unknown History aerosol inhaler cough trazodone 50 mg tablet 50 mg PO QHS 11/02/24 Unknow n History Allergy/AdvReac Type Severity Reaction Status Date / Time Sulfa (Sulfonamide Allergy Unknown Verified 11/02/24 11:30 Antibiotics) sulfisoxazole (From Allergy Hives Verified 11/02/24 11:30 Gantrisin) Social History (System 06/10/24 @ 07:12 by Fernanda Roblero) household members: family Smoking Status: Current every day smoker tobacco type: cigarettes and e-cigarettes ROS ROS ED Constitutional Constitutional ED: Denies chills, fever(s), subjective or sweats Eyes Eyes: Reports blurry vision ENT ENT ED: Denies ear pain, rhinorrhea or sore throat Cardiovascular Cardiovascular: Denies chest pain or palpitations Respiratory/Chest Respiratory/Chest: Denies cough, dyspnea or dyspnea on exertion Gastrointestinal Gastrointestinal: Reports nausea and vomiting; Denies abdominal pain, constipation, diarrhea or melena Genitourinary Genitourinary ED: Denies dysuria, hematuria or urinary frequency Musculoskeletal Musculoskeletal: Denies arthralgias or myalgias Integumentary Reports rash Neurologic Neurologic: Denies headache(s) or paresthesias Psychiatric Psychiatric: Reports anxiety, depression, suicidal ideation and suicidal thoughts Hematologic/Lymphatic Hematologic/Lymphatic: Denies easy bruising EXAM Physical Exam Const Vital Signs: 11/02/24 11:24 11/02/24 12:23 Temperature 97.7 F L Temperature Source Oral Pulse Rate 67 74 Respiratory Rate 14 18 Blood Pressure 105/64 117/78 Blood Pressure Mean 77 91 Pulse Ox 94 98 Oxygen Delivery Method Room Air Positive well nourished and well developed Constitutional Narrative: BMI is 39.2. He appears no distress. He opens his eyes to verbal. He states he does not want to dieany longer. General Appearance ED: well developed; Negative for pallor HEENT normocephalic and atraumatic; Negative for cyanosis of lips/distal nose or tenderness Eyes PERRL and EOMs intact bilaterally Eyes Narrative: There is no nystagmus. General Eye ED: Negative for pale conjunctiva or scleral icterus Neck full ROM, no lymphadenopathy and supple Cardio regular rate, regular rhythm, S1 normal heart sound, S2 normal heart sound and no murmurs GI non-tender, non-distended and no masses Auscultation: normoactive bowel sounds Palpation: soft Back/Spine no CVA tenderness Neuro oriented x3, CN's II-XII intact bilaterally and no sensory deficits noted Neuro Narrative: Gait was not tested. Has no dysmetria. There is no clonus Babinski sign. Sensorium / Orientation: Negative for alert Psych Mood & Affect: depressed Skin Skin Narrative: Blanching erythematous rash face and upper torso. There are no hives. There isno petechiae. This isnot raised. General Skin Exam: Negative for jaundice or pallor Lesions: no lesions Rashes: No no rashes MDM MDM MDM Narrative Medical decision making narrative: Intentional overdose with significant mount of trazodone.Symptoms from overdose are difficulty breathing, respiratory arrest, chest pain, hypotension, bradycardia, drowsiness, lack of coordination, seizure. Patient received activated charcoal since this occurred 30 to 45 minutes prior to arrival and he has a GCS of 14 since he opened his eyes to verbal. Appropriate blood work was ordered. He will need admission for medical clearance prior to transfer to psychiatric facility. I will complete a peak shape. Lab Data Attestation: I reviewed the patient's lab results. Lab results narrative: CBC is unremarkable. Comprehensive metabolic panel visit elevated creatinine of1.22 with an estimated GFR of 80. Glucose is elevated 161 with a normal CO2 anion gap. Alcohol is less than 10.1. Acetaminophen is 10.5 which is not significant. Salicylate level is low at 1.8. Labs: Laboratory Results - last 24 hr 11/02/24 11:35 WBC 9.2 RBC 4.34 L Hgb 13.6 Hct 40.5 MCV 93.3 MCH 31.3 MCHC 33.6 RDW Std Deviation 46.1 H RDW Coeff of Rohith 13.5 Plt Count 197 MPV 9.5 Immature Gran % (Auto) 0.400 Neut % (Auto) 54.1 Lymph % (Auto) 24.9 [place] % (Auto) 18.0 H Eos % (Auto) 2.1 Baso % (Auto) 0.5 Absolute Neuts (auto) 5.0 Absolute Lymphs (auto) 2.30 Nucleated RBC % 0 Differential Comment SCANNED Sodium 136 Potassium 3.4 Chloride 99 Carbon Dioxide 23.4 Anion Gap 14 BUN 9 Creatinine 1.22 H Estim Creat Clear Calc 119.42 Est GFR (MDRD) Non-Af 80 BUN/Creatinine Ratio 7.4 L Glucose 161 H Calcium 8.0 Total Bilirubin 0.15 AST 24 ALT 21 Alkaline Phosphatase 74 Total Protein 5.9 Albumin 3.9 Globulin 2.0 L Albumin/Globulin Ratio 2.0 Salicylates 1.8 L Acetaminophen 10.5 Ethyl Alcohol < 10.1 EKG Initial EKG: Attestation: I personally reviewed and interpreted this EKG as follows: Interpretation: Sinus Rhythm (Normal sinus rhythm rate of 67. This is abnormal since he has a prolonged QT which may be due to the trazodone. RI interval is under 58 ms. Cures duration 110 ms. QT duration 458 ms. [place] is normal.) Management Discussion w/another healthcare provider: Hospitalist (Hospitalist was paged at [phone] for admission.Case was discussed with Dr. Serrato who accepted patient. Full admit ICU) Critical Care Time Critical Care Time: Yes Critical care time (excluding procedures): 30-74 minutes (33), Including time spent: (History, physical, documentation, independent rotation laboratory results and EKG), Discussing w/Patient &/orFamily/Senior Program Analyst, Discussing w/Consultants and Arranging Admission or Transfer Discharge Plan Dx/Rx/DC Orders Clinical Impression: Intentional overdose, Prolonged QT interval, Intentional overdose of trazodone,Somnolence, Depression, major Disposition Disposition: Acute Care [facility] What to do if you have Problems For any increased pain, shortness of breath, bleeding, nausea or vomiting, chestpain, or any unexpected problems, contact your Primary Care Provider. Call [facility] ([phone]) or report tothe closest Emergency Room. Call 911 if necessary. 11/02/24 1257 Cosigner Signature (if applicable): CC: Dr. Kamron Erickson MD ~ Signed [facility]09-10-2023 Discharge summary Author Gustavo Garcia [facility] April 13, 2023 7:22am Note Date/Time April 13, 2023 4:18am [facility] Medical Records Department [address] [place] [address] Emergency Department Summary 04/13/23 MR#: [id number] Acct: [id number] Name: AIMEE DUCKWORTH Rep #:[id number] : 1990 32 From: Gustavo Garcia DO PCP: Dr. Kamron Erickson MD Status:REG ER Location: ED HPI HPI - GI History of Present Illness Chief Complaint: Nausea/Vomiting Narrative Narrative: 32-year-old male presenting with nausea and vomiting. He states he ate [employer] last night and afterwards started to have nausea and vomiting. He vomited multiple times at home. He also started having diarrhea. Denies fever or chills. Patient states he was not drinking alcohol. Nobody else is sick aroundhim. He did state that he saw some small amount of blood in his emesis and his last vomiting episode. He is on any blood thinners. [facility] Medical History Asthma Migraines Home Medications escitalopram oxalate 20 mg tablet 20 mg PO DAILY 12/31/21 [History Last Taken Unknown] ondansetron 4 mg disintegrating tablet 4 mg PO Q8H PRN nausea and vomiting #10 tabs 12/31/21 [Rx Last Taken Unknown] paliperidone 3 mg tablet,extended release 24 hr 3 mg PO DAILY 12/31/21 [History Last Taken Unknown] montelukast 10 mg tablet (Singulair) 10 mg PO DAILY #14 tabs 01/30/22 [Rx Last Taken Unknown] ondansetron 4 mg disintegrating tablet 4 mg PO Q6H PRN nausea and vomiting #10 tabs 01/30/22 [Rx Last Taken Unknown] ondansetron 4 mg disintegrating tablet 4 mg PO Q8H PRN PRN Nausea #14 tabs 04/13/23 [Rx Last Taken Unknown] promethazine 25 mg tablet 25 mg PO TID PRN nausea and vomiting #14 tabs 04/13/23[Rx Last Taken Unknown] Allergy/AdvReac Type Severity Reaction Status Date / Time Sulfa (Sulfonamide Allergy Unknown Verified 04/13/23 04:12 Antibiotics) sulfisoxazole Allergy Hives Verified 04/13/23 04:12 [From Gantrisin] Social History Smoking Status: Current every day smoker tobacco type: cigarettes ROS ROS ED Constitutional Constitutional ED: Denies chills, fever(s) or sweats Eyes Eyes: Denies blurry vision or change in vision ENT ENT ED: Denies ear pain or sore throat Cardiovascular Cardiovascular: Denies chest pain, palpitations or racing heartbeat Respiratory/Chest Respiratory/Chest: Denies cough, dyspnea or sputum Gastrointestinal Gastrointestinal: Reports diarrhea, nausea and vomiting; Denies abdominal pain or constipation Genitourinary Genitourinary ED: Denies dysuria, hematuria or urinary frequency Musculoskeletal Musculoskeletal: Denies arthralgias, myalgias or neck pain Integumentary Denies abscess, Abrasions or rash Neurologic Neurologic: Denies headache(s), paresthesias or weakness Psychiatric Psychiatric: Denies anxiety, depression, suicidal ideation or suicidal thoughts Endocrine Endocrinology: Denies polydipsia or polyuria EXAM Physical Exam Const Vital Signs: 04/13/23 04:07 04/13/23 07:01 Temperature 97.6 F L Temperature Source Axillary Pulse Rate 79 66 Respiratory Rate 15 15 Blood Pressure 143/98 H 104/59 L Blood Pressure Mean 113 74 Pulse Ox 98 100 Oxygen Delivery Method Room Air Room Air Positive well nourished General Appearance ED: Negative for pallor HEENT Reports moist mucous membranes normocephalic and atraumatic Resp normal respiratory effort Cardio regular rate and regular rhythm GI GI Narrative: Mild epigastric tenderness Neuro CN's II-XII intact bilaterally Sensorium / Orientation: alert Psych mental status grossly normal Skin General Skin Exam: Negative for jaundice or pallor MDM MDM MDM Narrative Medical decision making narrative: Patient presenting with nausea/vomiting. He has some slight blood in his vomit which is likely due to a Ivonne-Moreno tear. Its not excessive. He only had itonce while he was in the ER. He is on any blood thinners. Likely this is due to food poisoning since it happened after he ate [employer]. He is given 4 mg of oral Zofran. Will reevaluate. Continue to try to drink water even before the medication was given. He continually made him sick. He was given a dose of Phenergan IM and still continue to try to drink. I did have a conversation withhim about letting his stomach rest and stop trying to drink so much water. At this point I added an IV and check some basic lab work. I gave him some IV Reglan and I will reevaluate him. Patient still complaining of nausea so he is given Tylenol. CBC shows a leukocytosis of 15.7. Hemoglobin and hematocrit arestable. Platelets are normal. Renal function and electrolytes within normal limits with exception of a potassium of 3.3. LFTs unremarkable. Lipase negative. I obtained CT of the abdomen pelvis which is negative. On reevaluation the patient still says he has some nausea. I offered to admit him to the hospital but he declines. I will give him Zofran and Phenergan for home. He is to drink small amounts of fluids at a time. He is counseled to keep a bland diet and advance as tolerated. Impression: 1. Food poisoning 2. Nausea/vomiting 3. Abdominal pain Lab Data Labs: Laboratory Results - last 24 hr 04/13/23 05:33 WBC 15.7 H RBC 5.04 Hgb 14.9 Hct 45.1 MCV 89.5 MCH 29.6 MCHC 33.0 RDW Std Deviation 42.0 RDW Coeff of Rohith 12.8 Plt Count 351 MPV 9.3 Immature Gran % (Auto) 0.400 Neut % (Auto) 82.3 H Lymph % (Auto) 11.2 L [place] % (Auto) 4.5 Eos % (Auto) 1.3 Baso % (Auto) 0.3 Absolute Neuts (auto) 12.9 H Absolute Lymphs (auto) 1.76 Nucleated RBC % 0 Sodium 141 Potassium 3.3 L Chloride 105 Carbon Dioxide 30.0 Anion Gap 6 BUN 8 Creatinine 0.97 Estim Creat Clear Calc 120.00 Est GFR (MDRD) Af Amer 115 Est GFR (MDRD) Non-Af 95 BUN/Creatinine Ratio 8.2 L Glucose 126 H Calcium 8.6 Total Bilirubin 0.40 Direct Bilirubin 0.14 AST 10 L ALT 18 Alkaline Phosphatase 95 Total Protein 7.1 Albumin 3.7 Globulin 3.4 Lipase 34 Radiography Diagnostic Testing: Clinical Impression(s) from Imaging Studies Abdomen/Pelvis CT 04/13/23 06:26 IMPRESSION: No acute findings in the abdomen or pelvis. Electronically Signed: Clayton Liu MD at 7:15 EDT Reading Location ID and State: [facility] / [place] , Service support , Discharge Plan Triage Chief Complaint: Nausea/Vomiting ED Provider: Gustavo Garcia Dx/Rx/DC Orders Instructions: ED Food Poisoning (Adult) Prescriptions: New ondansetron 4 mg tablet,disintegrating 4 mg PO Q8H PRN PRN (Reason: Nausea) Qty: 14 0RF promethazine 25 mg tablet 25 mg PO TID PRN (Reason: nausea and vomiting) Qty: 14 0RF No Action escitalopram oxalate 20 mg tablet 20 mg PO DAILY paliperidone 3 mg tablet extended release 24hr 3 mg PO DAILY ondansetron 4 mg tablet,disintegrating 4 mg PO Q8H PRN (Reason: nausea and vomiting) Qty: 10 0RF ondansetron 4 mg tablet,disintegrating 4 mg PO Q6H PRN (Reason: nausea and vomiting) Qty: 10 0RF montelukast [Singulair] 10 mg tablet 10 mg PO DAILY Qty: 14 0RF Primary Care Provider: Kamron Erickson Referrals: Kamron Erickson MD [Primary Care Provider] - Disposition Disposition: Home, Self Care What to do if you have Problems For any increased pain, shortness of breath, bleeding, nausea or vomiting, chestpain, or any unexpected problems, contact your Primary Care Provider. Call [facility] ([phone]) or report to the closest Emergency Room. Call 911 if necessary. 04/13/23 0722 <Electronically signed by Gustavo Garcia DO> Cosigner Signature (if applicable): CC: Dr. Kamron Erickson MD ~ Signed [facility] Work Phone: Discharge summary Author Tramaine Tovar [facility] Note Date/Time November 02, 2024 12:5 7pm [facility] Medical Records Department [address] [place] [address] Emergency Department Summary 11/02/24 MR#: [id number] Acct: [id number] Name: AIMEE DUCKWORTH Rep #:[id number] : 1990 34 From: Tramaine Tovar MD PCP: Dr. Kamron Erickson MD Status:REG ER Location: ED HPI History of Present Illness Chief Complaint: Overdose Detail of Chief Complaint: Suicide attempt, took 6450 mg trazodone tablets 30 to45 minutes PIECE HAND Informant: patient Onset/Context/Timing Onset: Hours Context: Sudden Onset Timing: Continuous Quality: Sleepy Location: Presents from home Mechanism/Context: Yes other Current Severity: Severe Maximum Severity: Severe Worsened by: Intentional overdose Relieved by: Not applicable Narrative Narrative: Patient is a 34-year-old male. He has history of depression. He intentionally took 6450 mg tablets of trazodone to harm himself. This was taken 30 to 45 minutes prior to arrival. Since his GC assess 15 he received 50 mg of activatedcharcoal. Nurse informing he vomited after arrival. She did not see pill fragments. He states he intended to harm himself. He now states he does not want to and wants me to save his life. [facility] Patient has been hospitalized for suicidal ideation/attempt. Patient is awake but not alert. He has no complaints at this time other than he does not want to . Prior similar symptoms: Yes Recent Illness/Hospitalization: No PFSH PFSH Medical History Schizophrenia Migraines Asthma Schizophrenia Bipolar disorder Depression Anxiety Smoker Home Medications ?Medication ?Instructions ?Recorded ?Last Taken ?Type divalproex 500 mg tablet,delayed 500 mg PO BID 4 Unknown History release haloperidol 5 mg tablet 5 mg PO BID 08/03/24 Unknown History risperidone 200 mg/0.56 mL 200 mg subcut .Q2MON Unknown History subcutaneous extend release susp syringe (Uzedy) albuterol sulfate 90 mcg/actuation 1 - 2 puff inhalati on Q4H PRN PRN 11/02/24 Unknown History aerosol inhaler cough trazodone 50 mg tablet 50 mg PO QHS 11/02/24 Unknow n History Allergy/AdvReac Type Severity Reaction Status Date / Time Sulfa (Sulfonamide Allergy Unknown Verified 11/02/24 11:30 Antibiotics) sulfisoxazole (From Allergy Hives Verified 11/02/24 11:30 Gantrisin) Social History (System 06/10/24 @ 07:12 by Fernanda Roblero) household members: family Smoking Status: Current every day smoker tobacco type: cigarettes and e- cigarettes ROS ROS ED Constitutional Constitutional ED: Denies chills, fever(s), subjective or sweats Eyes Eyes: Reports blurry vision ENT ENT ED: Denies ear pain, rhinorrhea or sore throat Cardiovascular Cardiovascular: Denies chest pain or palpitations Respiratory/Chest Respiratory/Chest: Denies cough, dyspnea or dyspnea on exertion Gastrointestinal Gastrointestinal: Reports nausea and vomiting; Denies abdominal pain, constipation, diarrhea or melena Genitourinary Genitourinary ED: Denies dysuria, hematuria or urinary frequency Musculoskeletal Musculoskeletal: Denies arthralgias or myalgias Integumentary Reports rash Neurologic Neurologic: Denies headache(s) or paresthesias Psychiatric Psychiatric: Reports anxiety, depression, suicidal ideation and suicidal thoughts Hematologic/Lymphatic Hematologic/Lymphatic: Denies easy bruising EXAM Physical Exam Const Vital Signs: 11/02/24 11:24 11/02/24 12:23 Temperature 97.7 F L Temperature Source Oral Pulse Rate 67 74 Respiratory Rate 14 18 Blood Pressure 105/64 117/78 Blood Pressure Mean 77 91 Pulse Ox 94 98 Oxygen Delivery Method Room Air Positive well nourished and well developed Constitutional Narrative: BMI is 39.2. He appears no distress. He opens his eyes to verbal. He states he does not want to any longer. General Appearance ED: well developed; Negative for pallor HEENT normocephalic and atraumatic; Negative for cyanosis of lips/distal nose or tenderness Eyes PERRL and EOMs intact bilaterally Eyes Narrative: There is no nystagmus. General Eye ED: Negative for pale conjunctiva or scleral icterus Neck full ROM, no lymphadenopathy and supple Cardio regular rate, regular rhythm, S1 normal heart sound, S2 normal heart sound and no murmurs GI non-tender, non-distended and no masses Auscultation: normoactive bowel sounds Palpation: soft Back/Spine no CVA tenderness Neuro oriented x3, CN's II-XII intact bilaterally and no sensory deficits noted Neuro Narrative: Gait was not tested. Has no dysmetria. There is no clonus Babinski sign. Sensorium / Orientation: Negative for alert Psych Mood & Affect: depressed Skin Skin Narrative: Blanching erythematous rash face and upper torso. There are no hives. There isno petechiae. This is not raised. General Skin Exam: Negative for jaundice or pallor Lesions: no lesions Rashes: No no rashes MDM MDM MDM Narrative Medical decision making narrative: Intentional overdose with significant mount of trazodone.Symptoms from overdose are difficulty breathing, respiratory arrest, chest pain, hypotension, bradycardia, drowsiness, lack of coordination, seizure. Patient received activated charcoal since this occurred 30 to 45 minutes prior to arrival and he has a GCS of 14 since he opened his eyes to verbal. Appropriate blood work was ordered. He will need admission for medical clearance prior to transfer to psychiatric facility. I will complete a peak shape. Lab Data Attestation: I reviewed the patient's lab results. Lab results narrative: CBC is unremarkable. Comprehensive metabolic panel visit elevated creatinine of1.22 with an estimated GFR of 80. Glucose is elevated 161 with a normal CO2 anion gap. Alcohol is less than 10.1. Acetaminophen is 10.5 which is not significant. Salicylate level is low at 1.8. Labs: Laboratory Results - last 24 hr 11/02/24 11:35 WBC 9.2 RBC 4.34 L Hgb 13.6 Hct 40.5 MCV 93.3 MCH 31.3 MCHC 33.6 RDW Std Deviation 46.1 H RDW Coeff of Rohith 13.5 Plt Count 197 MPV 9.5 Immature Gran % (Auto) 0.400 Neut % (Auto) 54.1 Lymph % (Auto) 24.9 [place] % (Auto) 18.0 H Eos % (Auto) 2.1 Baso % (Auto) 0.5 Absolute Neuts (auto) 5.0 Absolute Lymphs (auto) 2.30 Nucleated RBC % 0 Differential Comment SCANNED Sodium 136 Potassium 3.4 Chloride 99 Carbon Dioxide 23.4 Anion Gap 14 BUN 9 Creatinine 1.22 H Estim Creat Clear Calc 119.42 Est GFR (MDRD) Non-Af 80 BUN/Creatinine Ratio 7.4 L Glucose 161 H Calcium 8.0 Total Bilirubin 0.15 AST 24 ALT 21 Alkaline Phosphatase 74 Total Protein 5.9 Albumin 3.9 Globulin 2.0 L Albumin/Globulin Ratio 2.0 Salicylates 1.8 L Acetaminophen 10.5 Ethyl Alcohol < 10.1 EKG Initial EKG: Attestation: I personally reviewed and interpreted this EKG as follows: Interpretation: Sinus Rhythm (Normal sinus rhythm rate of 67. This is abnormal since he has a prolonged QT which may be due to the trazodone. RI interval is under 58 ms. Cures duration 110 ms. QT duration 458 ms. [place] is normal.) Management Discussion w/another healthcare provider: Hospitalist (Hospitalist was paged at 1252 for admission. Case was discussed with Dr. Serrato who accepted patient. Full admit ICU) Critical Care Time Critical Care Time: Yes Critical care time (excluding procedures): 30-74 minutes (33), Including time spent: (History, physical, documentation, independent rotation laboratory results and EKG), Discussing w/Patient &/or Family/Senior Program Analyst, Discussing w/Consultants and Arranging Admission or Transfer Discharge Plan Dx/Rx/DC Orders Clinical Impression: Intentional overdose, Prolonged QT interval, Intentional overdose of trazodone,Somnolence, Depression, major Disposition Disposition: Acute Care [facility] What to do if you have Problems For any increased pain, shortness of breath, bleeding, nausea or vomiting, chestpain, or any unexpected problems, contact your Primary Care Provider. Call [facility] ([phone]) or report to the closest Emergency Room. Call 911 if necessary. 11/02/24 1257 <Electronically signed by Tramaine Tovar MD> Cosigner Signature (if applicable): CC: Dr. Kamron Erickson MD ~ Signed [facility] Work Phone: Evaluation noteNo assessment information available [facility] Work Phone: Evaluation note* Diagnosis Onset Date Resolution Status Admit Date Intentional overdose of trazodone acute November 02, 2024 12:55pm Prolonged QT interval acute Apr 2024 12:55pm [facility] Work Phone: History and physical note Author Román Sandoval [facility] Note Date/Time November 02, 2024 1:11 pm [facility] Medical Records Department [address] [place] [address] H&P Exam - Hospitalist 11/02/24 1306 MR#: [id number] Acct: [id number] Name: AIMEE DUCKWORTH Rep #:[id number] : 1990 34 From: Román Sandoval MD PCP: Dr. Kamron Erickson MD Status:REG ER Location: ED HPI - General General Date of Admission: 11/02/24 Date of Service: 11/02/24 Chief Complaint: Intentional drug overdose HPI Narrative AIMEE DUCKWORTH, is a 34 M with past medical history significant for schizophrenia,bipolar disorder depression with anxiety, mild intermittent asthma who presentedto the emergency department following an intentional drug overdose. Patient hadapparently taken 64 tablets of 50 mg of trazodone in an attempt to harm himself. Patient however admitted to not being suicidal at the time of my assessment in the emergency department. Initial workup did reveal prolonged QT C of 488. Patient did receive activated charcoal and admitted to the intensive care unit for further management. PFSH Medical History Schizophrenia Migraines Asthma Schizophrenia Bipolar disorder Depression Anxiety Smoker Home Medications ?Medication ?Instructions ?Recorded ?Last Taken ?Type divalproex 500 mg tablet,delayed 1,000 mg PO BID 06/0211/02/24 History release albuterol sulfate 90 mcg/actuation 1 - 2 puff inhalati on Q4H PRN cough 11/02/24 Unknown History aerosol inhaler bupropion HCl 300 mg 24 hr tablet, 300 mg PO DAILY 08/2811/02/24 History extended release escitalopram oxalate 20 mg tablet 20 mg PO DAILY 11/0211/02/24 History lorazepam 1 mg tablet 1 mg PO BID 11/02/24 Unknown History paliperidone palmitate 234 mg/1.5 234 mg IM Q30D 11/0210/09/24 History mL intramuscular syringe (Invega Sustenna) trazodone 50 mg tablet 50 mg PO QHS 11/02/24 Unknow n History Allergy/AdvReac Type Severity Reaction Status Date / Time Sulfa (Sulfonamide Allergy Unknown Verified 11/02/24 11:30 Antibiotics) sulfisoxazole (From Allergy Hives Verified 11/02/24 11:30 Gantrisin) Social History (System 06/10/24 @ 07:12 by Fernanda Roblero) household members: family Smoking Status: Current every day smoker tobacco type: cigarettes and e- cigarettes ROS ROS Narrative GENERAL: denies fever, chills, HEENT: denies headache, sinus congestion, RESPIRATORY: denies cough, sputum production, CARDIAC: denies chest pain, palpitations, GASTROINTESTINAL: denies abdominal pain, nausea, GENITOURINARY: denies dysuria, urgency, EXTREMITY: denies swelling MUSCULOSKELETAL: denies current joint pain NEUROLOGIC: denies focal numbness, HEMATOLOGIC: denies easy bruising INTEGUMENT: denies rashes PSYCHIATRIC: suicidal Vital Signs Vital Signs Vital Signs: 11/02/24 11:24 11/02/24 12:23 11/02/24 13:00 Temperature 97.7 F L Temperature Source Oral Pulse Rate 67 74 87 Respiratory Rate 14 18 16 Blood Pressure 105/64 117/78 107/78 Blood Pressure Mean 77 91 87 Pulse Ox 94 98 98 Oxygen Delivery Method Room Air Weight Weight: 131 kg Body Mass Index (BMI) 39.2 Physical Exam Narrative GENERAL: Somewhat somnolent but able to maintain a conversation HEENT: Atraumatic; normocephalic EYES; Anicteric, Normal Conjunctiva NECK; supple, normal thyroid, RESPIRATORY: Diminished to auscultation CARDIOVASCULAR: Regular S1 S2, GI: soft, normoactive bowel sounds, : No Renal angle tenderness; EXTREMITIES: No edema, no clubbing, MUSCULOSKELETAL: no muscle wasting NEURO: Awake; no lateralizing signs. SKIN: No Rash PSYCH; Flat affect Results Lab / Micro Data 11/02/24 11:35 11/02/24 11:35 Labs: Laboratory Results - last 24 hr 11/02/24 11:35: WBC 9.2, RBC 4.34 L, Hgb 13.6, Hct 40.5, MCV 93.3, MCH 31.3, MCHC 33.6, RDW Std Deviation 46.1 H, RDW Coeff of Rohith 13.5, Plt Count 197, MPV 9.5, Immature Gran % (Auto) 0.400, Neut % (Auto) 54.1, Lymph % (Auto) 24.9, [place]% (Auto) 18.0 H, Eos % (Auto) 2.1, Baso % (Auto) 0.5, Absolute Neuts (auto) 5.0,Absolute Lymphs (auto) 2.30, Nucleated RBC % 0, Differential Comment SCANNED, Sodium 136, Potassium 3.4, Chloride 99, Carbon Dioxide 23.4, Anion Gap 14, BUN 9, Creatinine 1.22 H, Estim Creat Clear Calc 119.42, Est GFR (MDRD) Non-Af 80, BUN/Creatinine Ratio 7.4 L, Glucose 161 H, Calcium 8.0, Total Bilirubin 0.15, AST24, ALT 21, Alkaline Phosphatase 74, Total Protein 5.9, Albumin 3.9, Globulin 2.0 L, Albumin/Globulin Ratio 2.0, Salicylates 1.8 L, Acetaminophen 10.5, Ethyl Alcohol < 10.1 Assessment & Plan Assessment/Plan (1) Prolonged QT interval: (2) Intentional overdose of trazodone: PLAN: Plan Patient is a 34-year-old gentleman admitted with intentional drug overdose 1. Intentional drug overdose with trazodone ? Patient admitted to the intensive care unit for close monitoring. Initial QTcwas 488. Patient did receive activated charcoal. Repeat EKG ordered for a.m. Patient was placed under suicide precaution 2. Schizophrenia ? Patient is on trazodone as well as haloperidol given his lethargy above medications were held 4. Bipolar disorder ? Patient is on valproic acid continue 4. Mild intermittent asthma ? Currently not in exacerbation patient is on albuterol as needed for shortness of breath 5. GERD ? Per patient currently not on any medication patient was placed on famotidine 6. Class II obesity with BMI of 39.2 ? Complicating care weight loss advised 7. Tobacco dependence ? Counseled on cessation, offered nicotine patch for tobacco cravings 8. DVT prophylaxis Low risk Time spent in the patient's overall evaluation,decision-making process, review of diagnostic data, adjustment of management, discussion with other providers, nursing nursing and ancillary staff involved in patient's care documentation, 75 Minutes Advance planning; did discuss patient's father regarding advanced directives aswell as CODE STATUS. Did explain the various scenarios involved ( FULL CODE, DNR CCA, DNR CCA with no intubation, and DNR CC and what each meant) plan is forpatient to remain full code at this point. Order was placed. Time spent on discussion 16 minutes. Charges/Coding Multi Select Codes Visit Charges Visit Charges: 11738 Init Hosp L3 Hospitalists' Procedures Procedures: 97528 Advncd Care Plan 30 Min 11/02/24 1311 <Electronically signed by Román Sandoval MD> Cosigner Signature (if applicable): CC: Dr. Román Sandoval MD; Dr. Kamron Erickson MD~ Signed [facility] Work Phone: Reason for referral (narrative)No reason for referral information availableWReg[facility] Work Phone: Summary Purpose Family History No Family History Records FoundNo Family History Records FoundNo Family History Records Found Advance Directives No Advanced Directives Records Found Advance Directive Response Recorded Date/ Time Living Will No December 04, 2018 12 :33pm Power of Sales And Operations Trainee No December 04, 2018 12:33pm Advance Directive Response Recorded Date/ Time Living Will No December 31, 2021 1 :58am Power of Sales And Operations Trainee No December 31, 2021 1:58am Advance Directive Response Recorded Date/ Time Living Will No January 30, 2022 3:53pm Power of Sales And Operations Trainee No January 30 3:53pm Advance Directive Response Recorded Date/ Time Living Will No May 29 9:05pm Power of Sales And Operations Trainee No May 29, 2022 9:05pm Advance Directive Response Recorded Date/ Time Living Will No April 13, 2023 4:10am Power of Sales And Operations Trainee No April 4:10am Advance Directive Response Recorded Date/ Time Living Will No November 02, 2024 11:27am Do you have a Healthcare Power of Sales And Operations Trainee? No November 02, 2024 11:27am Living Will No August 03 024 2:14pm Do you have a Healthcare Power of Sales And Operations Trainee? No August 03, 2024 2:14pm Advance Directive Response Recorded Date/ Time Living Will No November 02, 2024 1:54pm Do you have a Healthcare Power of Sales And Operations Trainee? No November 02, 2024 1:54pm Living Will No August 03 024 2:14pm Do you have a Healthcare Power of Sales And Operations Trainee? No August 03, 2024 2:14pm Chief Complaint and Reason for Visit Chief Complaint EORDER nausea and vomiting x1 Chief Complaint EORDER nausea and vomiting x1 cough Chief Complaint cough Homicidal Chief Complaint N/V Chief Complaint Admit Date PRADO August 03, 2024 12:44pm INTENTIONAL DRUG OVERDOSE November 02 12:55pm overdose November 02, 2024 1:06 pm Reason for Visit Admit Date Intentional overdose of trazodone November 02, 2024 12:55pm Prolonged QT interval November 02, 2024 12 :55pm Chief Complaint Admit Date PRADO August 03, 2024 12:44pm INTENTIONAL DRUG OVERDOSE November 02 12:55pm overdose November 02, 2024 1:06 pm INTENTIONAL DRUG OVERDOSE November 03 7:15am Additional Source Comments (unrecognized sect ion and content) No Status Records FoundNo Status Records FoundNo Status Records Found INFORMATION SOURCE (unrecogn ized section and content) DATE CREATED AUTHOR 07/12/2018 [facility] DATE CREATED AUTHOR AUTHOR'S ORGANIZ ATION 05/13/2023 [facility] DATE CREATED AUTHOR AUTHOR'S ORGANIZ ATION 11/09/2024 [facility] Goals (unrecognized section and content) Goals may be documented in a n alternate sectionGoals may be documented in an alternate sectionGoals may be documented in an alternate sectionGoals may be documented in an alternate sectionGoals may be documented in an alternate sectionGoals may be documented in an alternate sectionGoals may be documented in an alternate section Care Teams (unrecognized sec tion and content) Team Status: Active Member Role Status Dates Dr. Kamron Erickson MD Family Provider Active Dr. Kamron Erickson MD Primary Care Provider Active Team Status: Inactive Member Role Status Dates Dr. Kamron Erickson MD Primary Care Provider Active Dr. Gustavo Garcia DO Emergency Provider Active Team Status: Active Member Role Status Dates Dr. Kamron Erickson MD Primary Care Provider Active Team Status: Inactive Member Role Status Dates Dr. Kamron Erickson MD Primary Care Provider Active Start: August 03, 2024 End: August 04, 2024 Dr. Rodriguez Beavers DO Attending Provider Active Start: August 03, 2024 End: August 04, 2024 Dr. Rodriguez Beavers DO Emergency Provider Active Start: August 03, 2024 End: August 04, 2024 Team Status: Active Member Role Status Dates Dr. Kamron Erickson MD Primary Care Provider Active Start: November 02, 2024 Dr. Tramaine Tovar MD Emergency Provider Active Sta rt: November 02, 2024 Dr. Román Sandoval MD Admit Provider Active Star t: November 02, 2024 Dr. Román Sandoval MD Attending Provider Active Start: November 02, 2024 Team Status: Active Member Role Status Dates Dr. Kamron Erickson MD Primary Care Provider Active Start: November 02, 2024 Dr. Tramaine Tovar MD Emergency Provider Active Sta rt: November 02, 2024 Dr. Román Sandoval MD Attending Provider Active Start: November 02, 2024 Team Status: Inactive Member Role Status Dates Dr. Kamron Erickson MD Primary Care Provider Active Start: November 02, 2024 End: November 04, 2024 Dr. Tramaine Tovar MD Emergency Provider Active Sta rt: November 02, 2024 End: November 04, 2024 Dr. Román Sandoval MD Admit Provider Active Star t: November 02, 2024 End: November 04, 2024 Dr. Román Sandoval MD Attending Provider Active Start: November 02, 2024 End: November 04, 2024 Team Status: Active Member Role Status Dates Dr. Kamron Erickson MD Primary Care Provider Active Start: November 03, 2024 Dr. Tramaine Tovar MD Emergency Provider Active Sta rt: November 03, 2024 Dr. Román Sandoval MD Admit Provider Active Star t: November 03, 2024 Dr. Román Sandoval MD Attending Provider Active Start: November 03, 2024 Dr. Román Sandoval MD Other Provider Active Star t: November 03, 2024 FOR RECORDS PERTAINING TO PATIENTS WHO ARE OR HAVE BEEN ENROLLED IN A CHEMICAL DEPENDENCY/SUBSTANCEABUSE PROGRAM, SOME INFORMATION MAY BE OMITTED. This clinical summary was aggregated from multiple sources. Caution should be exercised in using it in the provision of clinical care. This summary normalizes information from multiple sources, and as a consequence, information in this document may materially change the coding, format and clinical context of patient data. In addition, data may be omitted in some cases. CLINICAL DECISIONS SHOULD BE BASED ON THE PRIMARY CLINICAL RECORDS. [facility]. provides no warranty or guarantee of the accuracy or completeness of information in this document.
[2025-04-21 02:49] LABS: AST(SGOT) 14 U/L (<=37); Alanine Aminotransfer ALT/SGPT 12 U/L (<=46); Albumin, Serum 4.5 g/dL (3.5-5.0); Alkaline Phosphatase 77 U/L (40-129); Anion Gap 17 (5-15); BUN 10 mg/dL (4-19); BUN/Creat Ratio 7.2 RATIO (10-20); Bilirubin, Direct 0.18 mg/dL (0.00-0.30); Calcium,Total 9.4 mg/dL (7.6-11.0); Carbon Dioxide 23.4 mmol/L (21.0-32.0); Chloride 104 mmol/L (98-108); Estimated Creatinine Clearance 96.43 ml/min (50-250); Globulin 2.7 g/dL (2.2-4.2); Glucose 125 mg/dL (70-99); Lipase 27 U/L (13-75); Potassium 3.9 mmol/L (3.3-5.1)
[2025-04-21] MEDS: DiphenhydrAMINE 50 MG/ML Syringe 25 MG IV (03:09)
[2025-04-21] MEDS: HYDROmorphone 0.5 MG/0.5 ML SYRINGE IV (03:10)
[2025-04-21 03:26] VITALS: BP 145/97; PULSE 102; RESP 16; TEMP 37.2; O2SAT 97
== END 2025-04-21 03:31 | disposition home or self-care (01) ==
PROVIDERS: Emergency Provider Emergency Medicine; PCP Family Medicine; Visit Provider Emergency Medicine
DX: R11.2 Nausea with vomiting, unspecified (principal); F20.9 Schizophrenia, unspecified; F17.210 Nicotine dependence, cigarettes, uncomplicated; R50.9 Fever, unspecified; R19.7 Diarrhea, unspecified; F32.A Depression, unspecified; E86.0 Dehydration; R10.9 Unspecified abdominal pain; F41.9 Anxiety disorder, unspecified; Z79.899 Other long term (current) drug therapy; F17.290 Nicotine dependence, other tobacco product, uncomplicated
CPT/HCPCS: 74177; 80048; 80076; 83690; 85025; 96361; 96374; 96375; 99283; Q9967; A4216; J2405

== ENCOUNTER 2025-04-22 07:37 | Emergency (ER) | payer MEDICARE, MEDICAID, SELFPAY ==
[2025-04-22 07:38] VITALS: BP 180/100; PULSE 117; RESP 14; TEMP 36.7; O2SAT 98; BMI 35.2
--- NOTE | 2025-04-22 07:42 | EX.ED.DYSGE1 ---
HPI History of Present Illness Chief Complaint: Abd Pain [facility] Medical History Spinal stenosis Schizophrenia Depression Anxiety Smoker Schizophrenia Migraines Asthma Home Medications ?Medication ?Instructions ?Recorded ?Last Taken ?Type divalproex 500 mg tablet,delayed 1,000 mg PO BID 06/02/24 11/02/24 History release albuterol sulfate 90 mcg/actuation 1 - 2 puff inhalation Q4H PRN cough 11/02/24 Unknown History aerosol inhaler bupropion HCl 300 mg 24 hr tablet, 300 mg PO DAILY 11/02/24 11/02/24 History extended release escitalopram oxalate 20 mg tablet 20 mg PO DAILY 11/02/24 11/02/24 History lorazepam 1 mg tablet 1 mg PO BID 11/02/24 Unknown History paliperidone palmitate 234 mg/1.5 234 mg IM Q30D 11/02/24 10/09/24 History mL intramuscular syringe (Invega Sustenna) trazodone 50 mg tablet 50 mg PO QHS 11/02/24 Unknown History diclofenac sodium 75 mg 75 mg PO BID 04/21/25 Unknown History tablet,delayed release haloperidol 5 mg tablet 5 mg PO BID 04/21/25 Unknown History hydroxyzine HCl 50 mg tablet 50 mg PO TID 04/21/25 Unknown History oxycodone-acetaminophen 5 mg-325 1 tab PO Q6H PRN pain 3 days #12 04/21/25 Unknown Rx mg tablet (Percocet) tabs prochlorperazine maleate 10 mg 10 mg PO TID PRN nausea and 04/21/25 Unknown Rx tablet (Compazine) vomiting 7 days #21 tabs promethazine 25 mg tablet 25 mg PO Q6H PRN nausea and 04/22/25 Unknown Rx vomiting 7 days #30 tabs Allergy/AdvReac Type Severity Reaction Status Date / Time Sulfa (Sulfonamide Allergy Unknown Verified 04/22/25 07:38 Antibiotics) sulfisoxazole (From Allergy Hives Verified 04/22/25 07:38 Gantrisin) Social History (System 06/10/24 @ 07:12 by Fernanda Roblero) household members: family Smoking Status: Current every day smoker tobacco type: cigarettes and e-cigarettes EXAM Physical Exam Const Vital Signs: 04/22/25 07:38 04/22/25 09:38 04/22/25 11:00 Temperature 98.1 F Temperature Source Temporal Pulse Rate 117 H 97 68 Respiratory Rate 14 16 Blood Pressure 180/100 H 163/114 H 141/93 H Blood Pressure Mean 126 130 109 Pulse Ox 98 99 97 Oxygen Delivery Method Room Air Room Air Room Air 04/22/25 11:54 Temperature 98.1 F Temperature Source Pulse Rate 68 Respiratory Rate 16 Blood Pressure 152/94 H Blood Pressure Mean 113 Pulse Ox 97 Oxygen Delivery Method [facility] [place] Narrative Medical decision making narrative: HISTORY OF PRESENT ILLNESS: Chief complaint: Abdominal pain 34-year-old male history of schizophrenia, anxiety, depression presents abdominal pain. Denies any abdominal pain now but notes nausea and vomiting this morning. 4 episodes of nonbloody bilious vomitus was noted. Notes diarrhea as well. Denies recent travel, antibiotics or sick contacts. Notes he smokes marijuana. Notes he typically smokes as much as he can however has not smoked recently given nausea and vomiting. REVIEW OF SYSTEMS: Pertinent positives: Abdominal pain, nausea, vomiting Pertinent negatives: Hematemesis, melena or hematochezia PHYSICAL EXAM: Nursing triage notes reviewed, Vital signs reviewed Constitutional: please see mdm HENT: MMM Eyes: Pupils equal round and reactive to light, Extraocular muscles intact Neck: No stridor, no JVD, full neck ROM Lungs: Clear to auscultation, No wheezing or rales. No increased work of breathing, no conversational dyspnea, no accessory muscle use, no nasal flaring. No respiratory distress noted Heart: Regular rate and rhythm, No murmurs, No rubs and No gallops, 2+ distal pulses (radial, femoral, posterior tibial) in all extremities Abdomen: Soft, there is no tenderness, rigidity, rebound or guarding, no obvious peritoneal signs, no palpable pulsatile abdominal masses, no auscultated abdominal bruit : No CVAT Extremities: No edema Neuro: No new focal neurological deficits, cranial nerves II through XII intact, 5/5 strength in all present extremities. Intact sensation to light touch in all present extremities, 2+ reflexes bilateral patella tendons. Skin: No rash or lesions noted MEDICAL DECISION MAKING: Chief Complaint: please see HPI External records reviewed: Reviewed CT scan abdomen pelvis from yesterday (04/21/2025) showed mild hepatic steatosis, gastritis, enteritis, colitis Factors affecting care: as per HPI Social determinants of health: Notes marijuana use History obtained from others: Mother Consults: none [facility] Narrative: The patient was initially hypertensive with a blood pressure 180/100, tachycardic with a heart rate of 117, afebrile and nontoxic-appearing otherwise. Abdominal exam benign. Not consistent with obstruction perforation or other surgical emergency. I considered the following differential diagnosis: AAA, small bowel obstruction, abdominal perforation, appendicitis, pancreatitis, hepatobiliary pathology (acute cholecystitis), mesenteric ischemia, pathology (ie nephrolithiasis, pyelonephritis). I obtained labs to further determine if the patient was suffering from a life-threatening etiology. Initially treat the patient with IV fluids, 4 mg IV morphine, 15 mg IV Toradol, and Zofran for symptomatic control Did not obtain additional imaging as patient had negative CT scan within the last 24 hours which makes acute surgical emergencies of the abdomen and pelvis less likely. ALL IMAGES (IF OBTAINED) HAVE BEEN PERSONALLY REVIEWED AND INTERPRETED BY MYSELF. CBC with leukocytosis suggestive of systemic inflammation, similar to CBC from yesterday, no anemia or thrombocytopenia noted BMP with significantly low potassium at 2.6, no other significant electrolyte or maladies, no evidence of metabolic acidosis with normal bicarb. Slight endorgan hypoperfusion likely secondary dehydration with a slightly elevated anion gap at 17, no acute kidney Injury in fact improved kidney function from yesterday LFTs show no evidence of hepatobiliary pathology. Lipase is wnl indicating no pancreatic inflammation. Urinalysis shows no evidence of urinary inflammation suggestive of UTI Patient requested oral Phenergan. This was given along with oral potassium (40 mEq). Patient is able to tolerate p.o. Repeat abdominal exam is benign. Upon reassessment vital signs improved blood pressure 141/93 and heart rate improved to 68. Patient notes symptomatic improvement. He was given a second dose of 40 milliequivalents of oral potassium to hopefully correct his hypokalemia (2.6). Patient was still able to tolerate p.o. Appropriate discharge home with prescription for Phenergan and lieu of already prescribed Zofran. Did not feel the patient needed repeat BMP as he took a total of 40 mEq of oral potassium. The patient and/or family, caregivers express understanding. The patient and/or family, caregivers agrees with the plan. Shared decision making: I will have a discussion with the patient and or visitors regarding risk/benefits of further testing or admission. They will be made aware of of the risk/benefits inherent in this decision they will be given the opportunity to voice understanding. Total critical care time today provided was at least 0 minutes. This excludes separately billable procedures. Critical care time (if documented) is secondary to the patient having high probability of clinically significant/life threatening deterioration in the patient's condition which required my urgent intervention. Impression: 1. Abdominal pain 2. Nausea and vomiting 3. Hypokalemia Dispo: Discharge home This note was generated with [employer] dictation software. It may contain incorrect words, spelling, and punctuation that were not noted in review of the chart prior to signing. Lab Data Labs: Laboratory Results - last 24 hr 04/22/25 04/22/25 08:02 08:50 WBC 14.6 H RBC 4.91 Hgb 15.5 Hct 46.0 MCV 93.7 MCH 31.6 MCHC 33.7 RDW Std Deviation 43.3 RDW Coeff of Rohith 12.5 Plt Count 273 MPV 9.9 Immature Gran % (Auto) 0.500 Neut % (Auto) 71.5 H Lymph % (Auto) 19.5 [place] % (Auto) 7.8 Eos % (Auto) 0.3 Baso % (Auto) 0.4 Absolute Neuts (auto) 10.4 H Absolute Lymphs (auto) 2.83 Nucleated RBC % 0 Sodium 140 Potassium 2.6 L* Chloride 93 L Carbon Dioxide 30.5 Anion Gap 17 H BUN 17 Creatinine 1.30 H Estim Creat Clear Calc 106.18 Est GFR (MDRD) Non-Af 74 BUN/Creatinine Ratio 13.1 Glucose 135 H Calcium 8.9 Total Bilirubin 0.42 AST 12 ALT 10 Alkaline Phosphatase 67 Total Protein 6.7 Albumin 4.2 Globulin 2.4 Albumin/Globulin Ratio 1.7 Lipase 37 Urine Color Yellow Urine Clarity Clear Urine pH 6.5 Ur Specific [place] 1.015 Urine Protein 100 H Urine Glucose (UA) Normal Urine Ketones 150 A* Urine Occult Blood 10 H Urine Nitrite Negative Urine Bilirubin 1 H Urine Urobilinogen 4 H Ur Leukocyte Esterase 25 H Urine RBC 0 SEEN Urine WBC 5-10 SEEN Ur Squamous Epith Cells 0 SEEN Urine Bacteria 0 SEEN Urine Mucus 1+ Discharge Plan Triage Chief Complaint: Abd Pain ED Provider: Rodriguez Beavers Dx/Rx/DC Orders Instructions: ED Hypokalemia, ED Vomiting (Adult) Prescriptions: New promethazine 25 mg tablet 25 mg PO Q6H PRN (Reason: nausea and vomiting) 7 Days Qty: 30 0RF No Action trazodone 50 mg tablet 50 mg PO QHS albuterol sulfate 90 mcg/actuation HFA aerosol inhaler 1 - 2 puff inhalation Q4H PRN (Reason: cough) Invega Sustenna 234 mg/1.5 mL syringe 234 mg IM Q30D lorazepam 1 mg tablet 1 mg PO BID escitalopram oxalate 20 mg tablet 20 mg PO DAILY bupropion HCl 300 mg tablet extended release 24 hr 300 mg PO DAILY divalproex 500 mg tablet,delayed release (DR/EC) 1,000 mg PO BID haloperidol 5 mg tablet 5 mg PO BID hydroxyzine HCl 50 mg tablet 50 mg PO TID diclofenac sodium 75 mg tablet,delayed release (DR/EC) 75 mg PO BID prochlorperazine maleate [Compazine] 10 mg tablet 10 mg PO TID PRN (Reason: nausea and vomiting) 7 Days Qty: 21 0RF oxycodone-acetaminophen [Percocet] 5-325 mg tablet 1 tab PO Q6H PRN (Reason: pain) 3 Days Qty: 12 0RF Primary Care Provider: Yovani Erickson Referrals: Yovani Erickson MD [Primary Care Provider, Family Practice] Owen Colbert DO [Med Staff - Active Staff, Gastroenterology] Activity Restrictions/Additional Instructions: Thank you for trusting us with your care today! Your labs are reassuring. Did show low potassium which was replaced with oral potassium. Please take Phenergan as needed for nausea vomiting control at home. Please return to the emergency department if your symptoms change or worsen. Please follow with your primary care physician and/or Gastroenterology (Dr. Colbert) for further outpatient evaluation and management. Print Language: [place] Disposition Disposition: Home, Self Care Discharge Date/Time: 04/22/25 11:55
[2025-04-22 08:15] LABS: Hematocrit 46.0 % (40-54); Hemoglobin 15.5 g/dL (13.0-16.5); Immature Granulocytes Count 0.070 X10^3/uL (0.0-0.0); Mean Corp Hgb Conc 33.7 g/dL (32-36); Mean Corpuscular Volume 93.7 fL (80-94); Mean Platelet Vol. 9.9 fl (6.2-12.0); NRBC Flagged by Analyzer 0 % (0-5); Platelet Count 273 K/mm3 (150-450); RBC Distribution Width CV 12.5 % (11.6-14.6); RBC Distribution Width SD 43.3 fl (35.1-43.9); Red Blood Count 4.91 M/mm3 (4.6-6.2); White Blood Count 14.6 K/mm3 (4.4-11.0)
--- OUTSIDE RECORDS SUMMARY | 2025-04-22 08:35 | XMS RPT_ITS | CCD ---
Author Organization [facility] Care Team Providers Care Adult Education Professional Name Role Phone Joe MoreiraArvind Unavailable Unavailable Hailey Jarquin FACTORY HELPER Unavailable Unavailable Abraham Aguilar RING CONDUCTOR Unavailable Unavailable VIDAL CAMARGO Attending Unava ilable KAMRON ERICKSON Primary Care Unavailable Dre GUZMÁN, Dr. Pina Primary Care Provider [phone] Dr. Rodriguez Beavers DO Attending Provider Dr. Rodriguez Beavers DO Emergency Provider Guy GUZMÁN, Dr. Redd Emergency Provider Lori GUZMÁN, Dr. [place] Admit Provider Unavailable Lori GUZMÁN, Dr. [place] Attending Provider Unavailtenzin Sandoval [...] Primary Care Unavailable Román Sandoval Attending Unavailable Dre, Kamron Primary Care Unavailable Kamron Erickson Attending Unavailable Román Sandoval Attending Unavailable Dre, Kamron Primary Care Unavailable Dre GUZMÁN, Dr. Pina Primary Care Physician Dr. Diomedes York DO Emergency Department Physic ayesha Allergies Allergy Classification Reported Allergen(s) Allergy Type Date of Onset Reaction(s) Facility (9 sources) sulfiSOXAZOLE Drug Allergy 9 [facility] (10 sources) Sulfonamides (Antibiotic); Translations: [Sulfa (Sulfonamide Antibiotics)] Allergy to substance 9 Unknown [facility] (1 source) sulfiSOXAZOLE; Translations: [GANTRISIN] Drug Allergy 3 [facility] (1 source) sulfiSOXAZOLE Drug Allergy 5 [facility] Medications Current Medications Medication Drug Class(es) Dates Sig (Normalized) Sig (Original) acetaminophen 325 mg / oxyCODONE hydrochloride 5 mg oral tablet (1 source) Opioid Agonist Start: 04-21-2025 take 1 tablet by mouth every six hours as needed for pain Start: 04-21-2025 take 1 tablet by mouth every s ix hours as needed for pain [id number] actuat albuterol 0.09 mg/actuat metered dose inhaler (3 sources) beta2-Adrenergic Agonist Start: 11-02-2024 Albuterol Sulfate 90 mcg/actuation HFA aerosol inhaler Active 1 - 2 NMA INHALATION Q4H as needed for cough November 02, 2024 12:00am Complies with drug therapy 24 hr buPROPion hydrochloride 300 mg extended release oral tablet (15 sources) Aminoketone Start: 11-02-2024 take 1 tablet by mouth once daily Start: 08-03-2024 End: 08-03-2024 take 1 tablet [...] 25, 2024 12:00am August 03, 2024 5:28pm diclofenac sodium 75 mg delayed release oral tablet (1 source) Nonsteroidal Anti-inflammatory Drug Start: 04-21-2025 take 1 tablet by mouth twice daily Diclofenac Sodium 75 mg tablet,delayed release (DR/EC) Active 75 mg PO TWICE A DAY April 21, 2025 12:00am Complies with drug therapy escitalopram 20 mg oral tablet (14 sources) Serotonin Reuptake Inhibitor Start: 11-02-2024 take 1 tablet by mouth once daily Escitalopram Oxalate 20 mg tablet Active 20 mg PO DAILY November 02, 2024 12:00am Complies with drug therapy Start: 12-31-2021 End: 08-03-2024 take 1 tablet by mouth once daily Escitalopram Oxalate 20 mg tablet Discontinued 20 mg PO DAILY June 02, 2024 12:00am August 03, 2024 5:26pm haloperidol 5 mg oral tablet (13 sources) Typical Antipsychotic Start: 04-21-2025 take 1 tablet by mouth twice daily Haloperidol 5 mg tablet Active 5 mg PO TWICE A DAY April 21, 2025 12:00am Complies with drug therapy Start: 08-03-2024 End: 11-02-2024 take 1 tablet [...] 02, 2024 12:00am August 03, 2024 5:22pm hydrOXYzine hydrochloride 50 mg oral tablet (1 source) Antihistamine Start: 04-21-2025 take 1 tablet by mouth three times daily Hydroxyzine Hcl 50 mg tablet Active 50 mg PO THREE TIMES A DAY April 21, 2025 12:00am Complies with drug therapy LORazepam 1 mg oral tablet (3 sources) Benzodiazepine Start: 11-02-2024 take 1 tablet by mouth twice daily 1.5 ml paliperidone palmitate 156 mg/ml prefilled syringe (14 sources) Atypical Antipsychotic Start: 11-02-2024 Start: 04-25-2024 End: 08-03-2024 Paliperidone Palmitate (Thony Rivera) 234 mg/1.5 mL syringe Discontinued 234 mg IM EVERY MONTH April 25, 2024 12:00am August 03, 2024 7:23pm Start: 12-31-2021 End: 04-25-2024 take 1 tablet by mouth once daily Paliperidone 3 mg tablet extended release 24hr Discontinued 3 mg PO DAILY December 31, 2021 12:00am April 25, 2024 10:22pm prochlorperazine 10 mg oral tablet (1 source) Phenothiazine Start: 04-21-2025 take 1 tablet by mouth three times daily as needed for nausea and vomiting traZODone hydrochloride 50 mg oral tablet (6 sources) Serotonin Reuptake Inhibitor Start: 11-02-2024 take 1 tablet by mouth at bedtime Trazodone 50 mg tablet Active 50 mg PO AT BEDTIME November 02, 2024 12:00am Non-compliance of drug therapy Start: 08-03-2024 End: 08-03-2024 take 1 tablet by mouth at bedtime Trazodone 50 mg tablet Discontinued 50 mg PO AT BEDTIME August 03, 2024 1:00am August 03, 2024 7:23pm divalproex sodium 500 mg delayed release oral tablet (6 sources) Mood Stabilizer, Anti-epileptic Agent Start: 06-02-2024 take 2 tablets by mouth twice daily Divalproex 500 mg tablet,delayed release (DR/EC) Active 1000 mg PO TWICE A DAY June 02, 2024 12:00am Complies with drug therapy Start: 04-25-2024 End: 08-03-2024 take 1 tablet by mouth twice daily Divalproex 125 mg tablet,delayed release (DR/EC) Discontinued 125 mg PO TWICE A DAY April 25, 2024 12:00am August 03, 2024 5:28pm Completed/Discontinued Medications Medication Drug Class(es) Dates Sig (Normalized) Sig (Original) atomoxetine 25 mg oral capsule (6 sources) Norepinephrine Reuptake Inhibitor Start: 06-02-2024 End: 08-03-2024 take 1 capsule by mouth once daily Atomoxetine 25 mg capsule Discontinued 25 mg PO DAILY June 02, 2024 12:00am August 03, 2024 5:28pm Start: 06-02-2024 End: 08-03-2024 Atomoxetine 40 mg capsule Di scontinued PO June 02, 2024 12:00am August 03, 2024 5:28pm benztropine mesylate 1 mg oral tablet (3 sources) Anticholinergic, Antihistamine Start: 06-02-2024 End: 08-03-2024 take 1 tablet by mouth twice daily Benztropine 1 mg tablet Discontinued 1 mg PO TWICE A DAY June 02, 2024 12:00am August 03, 2024 5:28pm gabapentin 300 mg oral capsule (9 sources) Anti-epileptic Agent Start: 06-02-2024 End: 08-03-2024 [...] 25, 2024 12:00am August 03, 2024 5:28pm montelukast 10 mg oral tablet (6 sources) Leukotriene Receptor Antagonist Start: 01-30-2022 End: 04-25-2024 take 1 tablet by mouth once daily Montelukast (Singulair) 10 mg tablet Discontinued 10 mg PO DAILY 14 0 January 30, 2022 12:00am April 25, 2024 10:22pm nabumetone 500 mg oral tablet (3 sources) Nonsteroidal Anti-inflammatory Drug Start: 06-02-2024 End: 08-03-2024 take 1 tablet by mouth twice daily Nabumetone 500 mg tablet Discontinued 500 mg PO TWICE A DAY June 02, 2024 12:00am August 03, 2024 5:28pm nicotine 2 mg chewing gum (3 sources) Cholinergic Nicotinic Agonist Start: 06-02-2024 End: 08-03-2024 take 2 mg by mouth every two hours as needed Nicotine (Polacrilex) 2 mg gum Discontinued 2 mg PO EVERY 2 HOURS NEEDED as needed for nicotine cravings June 02, 2024 12:00am August 03, 2024 5:28pm ondansetron 4 mg disintegrating oral tablet (18 sources) Serotonin-3 Receptor Antagonist Start: 01-30-2022 End: 04-25-2024 take 1 tablet by mouth every six hours as needed for nausea and vomiting Ondansetron 4 mg tablet,disintegra ting Discontinued 4 mg PO EVERY 6 HOURS as needed for nausea and vomiting 10 0 January 30, 2022 12:00am April 25, 2024 10:22pm Start: 12-31-2021 End: 04-25-2024 take 1 tablet by mouth every eight hours as needed for nausea Ondansetron 4 mg tablet,disintegrating Discontinued 4 mg PO EVERY 8 HOURS NEEDED as needed for Nausea 14 0 April 13, 2023 12:00am April 25, 2024 10:22pm predniSONE 10 mg oral tablet (3 sources) Start: 01-08-2024 End: 04-25-2024 Prednisone 10 mg tablet Discontinued 60 mg PO TWICE A DAY 84 7 0 January 08, 2024 12:00am April 25, 2024 10:21pm promethazine hydrochloride 25 mg oral tablet (4 sources) Phenothiazine Start: 04-13-2023 End: 04-25-2024 take 1 tablet by mouth three times daily as needed for nausea and vomiting Promethazine 25 mg tablet Discontinued 25 mg PO THREE TIMES A DAY as needed for nausea and vomiting 14 0 April 13, 2023 12:00am April 25, 2024 10:22pm Risperidone (9 sources) Atypical Antipsychotic Start: 08-03-2024 End: 11-02-2024 Risperidone (Uzedy) 200 mg/0.56 mL suspension,extend ed rel syring Discontinued 200 mg SC .Q2MON August 03, 2024 1:00am November 02, 2024 1:05pm Start: 04-25-2024 End: 08-03-2024 Risperidone (Perseris) 120 m g suspension,extended rel syring Discontinued 120 mg SC June 02, 2024 12:00am August 03, 2024 5:28pm once a month injection valACYclovir 1000 mg oral tablet (3 sources) Herpesvirus Nucleoside Analog DNA Polymerase Inhibitor, Herpes Simplex Virus Nucleoside Analog DNA Polymerase Inhibitor, Herpes Zoster Virus Nucleoside Analog DNA Polymerase Inhibitor Start: 01-08-2024 End: 04-25-2024 Valacyclovir 1 gram tablet Discontinued 1000 mg PO Q8H 14 0 January 08, 2024 12:00am April 25, 2024 10:21pm Problems Active Problems Problem Classification Problem Date Documented Date Episodic/Chronic Abdominal pain (3 sources) Unspecified abdominal pain; Translations: [Abdominal pain] Onset: 05-06-2023 Episodic Anxiety disorders (1 source) Mixed anxiety and depressive disorder; Translations: [Anxiety disorder, unspecified] 04-21-2025 Chronic Attention-deficit, conduct, and disruptive behavior disorders (8 sources) Threatening behavior; Translations: [Other symptoms and signs involving appearance and behavior] 06-07-2022 Episodic Cardiac dysrhythmias (3 sources) Tachycardia; Translations: [Tachycardia, unspecified] 05-04-2024 Episodic Chronic obstructive pulmonary disease and bronchiectasis (6 sources) Bronchitis; Translations: [Bronchitis, not specified as acute or chronic] 02-07-2022 Episodic Coma; stupor; and brain damage (3 sources) Drowsy; Translations: [Somnolence] 11-02-2024 Episodic Fluid and electrolyte disorders (1 source) Dehydration; Translations: [Dehydration] 04-21-2025 Episodic Headache; including migraine (1 source) Headache; including migraine; Translations: [Headache, unspecified] Onset: 08-30-2024 Mood disorders (6 sources) Major depressive disorder; Translations: [Major depressive disorder, single episode, unspecified] 11-02-2024 Chronic Nausea and vomiting (17 sources) Nausea and vomiting; Translations: [Nausea with vomiting, unspecified] Onset: 05-06-2023 01-08-2022 Episodic Other circulatory disease (3 sources) Elevated blood-pressure reading without diagnosis of hypertension; Translations: [Elevated blood-pressure reading, without diagnosis of hypertension] 05-04-2024 Episodic Other lower respiratory disease (2 sources) Solitary pulmonary nodule; Translations: [Solitary pulmonary nodule] Onset: 05-06-2023 Episodic Other screening for suspected conditions (not mental disorders or infectious disease) (6 sources) Prolonged QT interval; Translations: [Abnormal electrocardiogram [ECG] [EKG]] Onset: 11-04-2024 11-02-2024 Episodic Residual codes; unclassified (3 sources) Hallucinations; Translations: [Hallucinations, unspecified] 06-10-2024 Episodic Schizophrenia and other psychotic disorders (20 sources) Paranoid schizophrenia; Translations: [Paranoid schizophrenia] Onset: 06-10-2024 06-07-2022 Chronic Schizophrenia and other psychotic disorders (5 sources) Brief psychotic disorder; Translations: [Acute psychosis] 06-07-2022 Episodic Screening and history of mental health and substance abuse codes (7 sources) H/O: schizophrenia; Translations: [Personal history of other mental and behavioral disorders] 01-08-2022 Episodic Substance-related disorders (3 sources) Cannabis abuse; Translations: [Cannabis use, unspecified, uncomplicated] 05-04-2024 Episodic Suicide and intentional self-inflicted injury (10 sources) Poisoning by unspecified drugs, medicaments and [...] Test Name Value Interpretation Reference Range Facility Absolute lymphocyte countOrd ered By: Diomedes York on 04-21-2025 Lymphocytes Auto (Unsp spec) [#/Vol] 1.75 10*3/uL 0.83-4.51 [facility] Absolute neutrophil countOrd ered By: Diomedes York on 04-21-2025 Neutrophils (Bld) [#/Vol] 11.4 10*3/uL High 2.0-7.7 [facility] Anion gap in Serum or Plasma Ordered By: Diomedes York on 04-21-2025 Anion gap [Moles/Vol] 17 mmol/L High 5-15 [facility] Automated lymphocyte count a s percentage of total leukocytesOrdered By: Diomedes York on 04-21-2025 Lymphocytes/100 WBC Auto (Unsp spec) 12.5 % Low 19-41 [facility] BUN/creatinine ratioOrdered By: Diomedes York on 04-21-2025 Urea nitrogen/Creatinine [Mass ratio] 7.2 mg/mg Low 10-20 [facility] Basophil percentageOrdered B y: Diomedes York on 04-21-2025 Basophils/100 WBC (Bld) 0.4 % 0-1 [facility] Bilirubin directOrdered By: Diomedes York on 04-21-2025 Bilirubin.direct [Mass/Vol] 0.18 mg/dL 0.00-0.3 0 [facility] Bilirubin, totalOrdered By: Diomedes York on 04-21-2025 Bilirubin [Mass/Vol] 0.42 mg/dL 0.00-1.30 [facility] Carbon dioxide, total [Moles /volume] in Central venous bloodOrdered By: Diomedes York on 04-21-2025 CO2 [Moles/Vol] 23.4 mmol/L 21.0-32.0 [facility] Chloride assayOrdered By: Violet York on 04-21-2025 Chloride [Moles/Vol] 104 mmol/L 98-108 [facility] Eosinophil percentageOrdered By: Diomedes York on 04-21-2025 Eosinophils/100 WBC (Bld) 0.2 % 0-5 [facility] Erythrocyte distribution wid th ratioOrdered By: Diomedes York on 04-21-2025 Erythrocyte distribution width (RBC) [Ratio] 12.3 % 11.6-14.6 [facility] Erythrocyte distribution wid th standard deviationOrdered By: Diomedes York on 04-21-2025 Erythrocyte distribution width (RBC) [Ratio] 42.9 fl 35.1-43.9 [facility] Glomerular filtration rate ( GFR) estimation/1.73 sq m using serum, plasma, or whole bOrdered By: Diomedes York on 04-21-2025 GFR/1.73 sq M.predicted among non-blacks MDRD (S/P/Bld) [Vol rate/Area] 65 mL/min/{1.73_m2} >60 [facility] Comment on above: mL/min/1.73m2 CKD-EP I Creatinine Equation (2020) Hematocrit Auto (Bld) [Volum e fraction]Ordered By: Diomedes York on 04-21-2025 Hematocrit (Bld) [Volume fraction] 48.7 % 40-54 [facility] Hemoglobin measurementOrdere d By: Diomedes York on 04-21-2025 Hemoglobin (Bld) [Mass/Vol] 16.4 g/dL 13.0-16. 5 [facility] Immature granulocytes/100 WB C Auto (Bld)Ordered By: Diomedes York on 04-21-2025 Immature granulocytes/100 WBC (Bld) 0.400 % 0.0-0.9 [facility] Comment on above: IG% - Immature Granu locytes (promyelocytes, myelocytes and metamyelocytes) > 1% indicates that a LEFT SHIFT is Present. Laboratory - Chemistry and C hemistry - challengeOrdered By: Diomedes York on 04-21-2025 AST [Catalytic activity/Vol] 14 U/L <38 [facility] Lipase measurementOrdered By : Diomedes York on 04-21-2025 Lipase [Catalytic activity/Vol] 27 U/L 13-75 [facility] Comment on above: Please note:LIPASE r evised reference range effective 22. New Lipase methodology. Expected to produce lower values than the previous assay method. NEW Reference Range: 13 - 75 U/L MCV (mean corpuscular volume ) determinationOrdered By: Diomedes York on 04-21-2025 MCV (RBC) [Entitic vol] 93.7 fL 80-94 [facility] Mean corpuscular hemoglobin (MCH) determinationOrdered By: Diomedes York on 04-21-2025 MCH (RBC) [Entitic mass] 31.5 pg 27.0-32.0 [facility] Mean corpuscular hemoglobin concentration (MCHC) determinationOrdered By: Diomedes York on 04-21-2025 MCHC (RBC) [Mass/Vol] 33.7 g/dL 32-36 [facility] Mean platelet volume determi nationOrdered By: Diomedes York on 04-21-2025 Platelet mean volume (Bld) [Entitic vol] 9.9 fL 6.2-12.0 [facility] Monocyte percentageOrdered B y: Diomedes York on 04-21-2025 Monocytes/100 WBC (Bld) 5.4 % 0-10 [facility] Neutrophil percentageOrdered By: Diomedes York on 04-21-2025 Neutrophils/100 WBC (Bld) 81.1 % High 47-70 [facility] Nucleated red blood cell per centageOrdered By: Diomedes York on 04-21-2025 Nucleated RBC/100 WBC (Bld) [Ratio] 0 % 0-5 [facility] Platelet countOrdered By: Violet York on 04-21-2025 Platelets (Bld) [#/Vol] 372 10*3/uL 150-450 [facility] Potassium measurement (mass/ volume)Ordered By: Diomedes York on 04-21-2025 Potassium (Unsp spec) [Mass/Vol] 3.9 mmol/L 3.3-5.1 [facility] RBC Auto (Bld) [#/Vol]Ordere d By: Diomedes York on 04-21-2025 RBC (Bld) [#/Vol] 5.20 10*6/uL 4.6-6.2 [facility] Serum creatinine measurement (mass/volume)Ordered By: Diomedes York on 04-21-2025 Creatinine [Mass/Vol] 1.44 mg/dL High 0.70-1.20 [facility] Serum globulin measurementOr dered By: Diomedes York on 04-21-2025 Globulin (S) [Mass/Vol] 2.7 g/dL 2.2-4.2 [facility] Serum glucose measurement (m ass/volume)Ordered By: Diomedes York on 04-21-2025 Glucose [Mass/Vol] 125 mg/dL High 70-99 [facility] Serum or plasma alanine comer otransferase (ALT) measurementOrdered By: Diomedes York on 04-21-2025 ALT [Catalytic activity/Vol] 12 U/L <47 [facility] Serum or plasma albumin mauro urement (mass/volume)Ordered By: Diomedes York on 04-21-2025 Albumin [Mass/Vol] 4.5 g/dL 3.5-5.0 [facility] Serum or plasma alkaline fatuma sphatase measurementOrdered By: Diomedes York on 04-21-2025 ALP [Catalytic activity/Vol] 77 U/L 40-129 [facility] Serum or plasma calcium mauro urement (mass/volume)Ordered By: Diomedes York on 04-21-2025 Calcium [Mass/Vol] 9.4 mg/dL 7.6-11.0 [facility] Serum or plasma urea nitroge n measurement (mass/volume)Ordered By: Diomedes York on 04-21-2025 Urea nitrogen [Mass/Vol] 10 mg/dL 4-19 [facility] Sodium levelOrdered By: Gordo York on 04-21-2025 Sodium [Moles/Vol] 144 mmol/L 133-145 [facility] Total proteinOrdered By: Luis York on 04-21-2025 Protein [Mass/Vol] 7.2 g/dL 5.9-8.4 [facility] White blood cell (WBC) count Ordered By: Diomedes York on 04-21-2025 WBC (Bld) [#/Vol] 14.0 10*3/uL High 4.4-11.0 [facility] 12 Lead EKGon 11-03-2024 12 Lead EKG [facility] [address] [place] [address] 12 Lead EKG 11/03/24 0504 MR#: [id number] Acct: [id number] Name: AIMEE DUCKWORTH Rep #: [id number] : 1990 34 From: Manuel Kim MD [...] rhythm Normal ECG Confirmed by Manuel Kim ([id number]), photograph editor JANELL RIVERA ([id number]) on 11/03/2024 7:58:31 AM Referred By: LORI Confirmed By: Manuel Kim 11/03/24 0758 Date Manuel Kim MD CC: Dr. Román Sandoval MD; Dr. Kamron Erickson MD Signed Normal [facility] Absolute neutrophil countOrd ered By: Román Sandoval on 11-03-2024 Neutrophils (Bld) [#/Vol] 3.8 10*3/uL 2.0-7.7 [facility] Anion gap in Serum or Plasma Ordered By: Román Sandoval on 11-03-2024 Anion gap [Moles/Vol] 8 mmol/L 5-15 [facility] BUN/creatinine ratioOrdered By: Román Sandoval on 11-03-2024 Urea nitrogen/Creatinine [Mass ratio] 6.6 mg/mg Low 10-20 [facility] Basophil percentageOrdered B y: Román Sandoval on 11-03-2024 Basophils/100 WBC (Bld) 0.3 % 0-1 [facility] Bilirubin, totalOrdered By: Román Sandoval on 11-03-2024 Bilirubin [Mass/Vol] 0.16 mg/dL 0.00-1.30 [facility] CBC W/Diff, Automatedon Absolute Lymph 1.14 X10 3/uL Normal 0.83-4.51 [facility] Comment on above: Performed By: #### L 501.5200, L100.0100, L500.4050, L501.2300 ####[facility] [address] [place], [address] Absolute Neut 3.8 X10 3/uL Normal 2.0-7.7 [facility] Comment on above: Performed By: #### L 501.5200, L100.0100, L500.4050, L501.2300 ####[facility] [address] [place], [address] Basophils/100 WBC (Bld) 0.3 % Normal 0-1 [facility] Comment on above: Performed By: #### L 501.5200, L100.0100, L500.4050, [id number] ####[facility] [address] [place], [address] Eosinophils/100 WBC (Bld) 0.5 % Normal 0-5 [facility] Comment on above: Performed By: #### L 501.5200, L100.0100, L500.4050, [id number] ####[facility] [address] [place], [address] Erythrocyte distribution width (RBC) [Ratio] 13.8 % Normal 11.6-14.6 [facility] Comment on above: Performed By: #### L 501.5200, L100.0100, L500.4050, [id number] ####[facility] [address] [place], [address] Hematocrit (Bld) [Volume fraction] 38.0 % Low 40-54 [facility] Comment on above: Performed By: #### L 501.5200, L100.0100, L500.4050, [id number] ####[facility] [address] [place], [address] Hemoglobin (Bld) [Mass/Vol] 12.6 g/dL Low 13.0-16. 5 [facility] Comment on above: Performed By: #### L 501.5200, L100.0100, L500.4050, [id number] ####[facility] [address] [place], [address] IG% 0.500 Normal 0.0-0.9 [facility] Comment on above: Result Comment: IG% - Immature Granulocytes (promyelocytes, myelocytes and metamyelocytes) > 1% indicates that a LEFT SHIFT is Present. Performed By: #### L 501.5200, L100.0100, L500.4050, L501.2300 ####[facility] [address] [place], [address] Lymphocytes/100 WBC (Bld) 19.2 % Normal 19-41 [facility] Comment on above: Performed By: #### L 501.5200, L100.0100, L500.4050, [id number] ####[facility] [address] [place], [address] MCH (RBC) [Entitic mass] 31.2 pg Normal 27.0-32.0 [facility] Comment on above: Performed By: #### L 501.5200, L100.0100, L500.4050, L501.2300 ####[facility] [address] [place], [address] MCHC (RBC) [Mass/Vol] 33.2 g/dL Normal 32-36 [facility] Comment on above: Performed By: #### L 501.5200, L100.0100, L500.4050, L501.2300 ####[facility] [address] [place], [address] MCV (RBC) [Entitic vol] 94.1 fL High 80-94 [facility] Comment on above: Performed By: #### L 501.5200, L100.0100, L500.4050, L501.2300 ####[facility] [address] [place], [address] Monocytes/100 WBC (Bld) 16.0 % High 0-10 [facility] Comment on above: Performed By: #### L 501.5200, L100.0100, L500.4050, [id number] ####[facility] [address] [place], [address] Neutrophils/100 WBC (Bld) 63.5 % Normal 47-70 [facility] Comment on above: Performed By: #### L 501.5200, L100.0100, L500.4050, [id number] ####[facility] [address] [place], [address] Nucleated RBC (Bld) [#/Vol] 0 10*3/uL Normal 0-5 [facility] Comment on above: Performed By: #### L 501.5200, L100.0100, L500.4050, [id number] ####[facility] [address] [place], [address] Platelet mean volume (Bld) [Entitic vol] 9.6 fL Normal 6.2-12.0 [facility] Comment on above: Performed By: #### L 501.5200, L100.0100, L500.4050, [id number] ####[facility] [address] [place], [address] Platelets (Bld) [#/Vol] 172 10*3/uL Normal 150-450 [facility] Comment on above: Performed By: #### L 501.5200, L100.0100, L500.4050, [id number] ####[facility] [address] [place], [address] RBC (Bld) [#/Vol] 4.04 10*6/uL Low 4.6-6.2 [facility] Comment on above: Performed By: #### L 501.5200, L100.0100, L500.4050, L501.2300 ####[facility] [address] [place], [address] RDW SD 48.2 fl High 35.1-43.9 [facility] Comment on above: Performed By: #### L 501.5200, L100.0100, L500.4050, L501.2300 ####[facility] [address] [place], [address] WBC (Bld) [#/Vol] 5.9 10*3/uL Normal 4.4-11.0 [facility] Comment on above: Performed By: #### L 501.5200, L100.0100, L500.4050, L501.2300 ####[facility] [address] [place], [address] Carbon dioxide, total [Moles /volume] in Central venous bloodOrdered By: Román Sandoval on 11-03-2024 CO2 [Moles/Vol] 24.6 mmol/L 21.0-32.0 [facility] Chloride assayOrdered By: Huy Sandoval on 11-03-2024 Chloride [Moles/Vol] 104 mmol/L 98-108 [facility] Comprehensive Metabolic Prof ilon 11-03-2024 Albumin [Mass/Vol] 3.6 g/dL Normal 3.5-5.0 [facility] Comment on above: Performed By: #### L 501.5200, L100.0100, L500.4050, L501.2300 ####[facility] [address] [place], [address] Albumin/Globulin [Mass ratio] 1.9 {ratio} Normal 0.9-2.4 [facility] Comment on above: Performed By: #### L 501.5200, L100.0100, L500.4050, L501.2300 ####[facility] [address] [place], [address] ALK PHOS 66 U/L Normal 40-129 [facility] Comment on above: Performed By: #### L 501.5200, L100.0100, L500.4050, L501.2300 ####[facility] [address] [place], [address] ALT [Catalytic activity/Vol] 19 U/L Normal <=46 [facility] Comment on above: Performed By: #### L 501.5200, L100.0100, L500.4050, L501.2300 ####[facility] [address] [place], [address] AST [Catalytic activity/Vol] 22 U/L Normal <=37 [facility] Comment on above: Performed By: #### L 501.5200, L100.0100, L500.4050, L501.2300 ####[facility] [address] [place], [address] Bilirubin [Mass/Vol] 0.16 mg/dL Normal 0.00-1.30 [facility] Comment on above: Performed By: #### L 501.5200, L100.0100, L500.4050, L501.2300 ####[facility] [address] [place], [address] BUN/CRE 6.6 RATIO Low 10-20 [facility] Comment on above: Performed By: #### L 501.5200, L100.0100, L500.4050, L501.2300 ####[facility] [address] [place], [address] Calcium [Mass/Vol] 7.8 mg/dL Normal 7.6-11.0 [facility] Comment on above: Performed By: #### L 501.5200, L100.0100, L500.4050, L501.2300 ####[facility] [address] [place], [address] Chloride [Moles/Vol] 104 mmol/L Normal 98-108 [facility] Comment on above: Performed By: #### L 501.5200, L100.0100, L500.4050, L501.2300 ####[facility] [address] [place], [address] CO2 [Moles/Vol] 24.6 mmol/L Normal 21.0-32.0 [facility] Comment on above: Performed By: #### L 501.5200, L100.0100, L500.4050, L501.2300 ####[facility] [address] [place], [address] Creatinine [Mass/Vol] 1.01 mg/dL Normal 0.70-1.20 [facility] Comment on above: Performed By: #### L 501.5200, L100.0100, L500.4050, L501.2300 ####[facility] [address] [place], [address] ECRCL 145.41 ml/min Normal 50-250 [facility] Comment on above: Performed By: #### L 501.5200, L100.0100, L500.4050, L501.2300 ####[facility] [address] [place], [address] GAP 8 Normal 5-15 [facility] Comment on above: Performed By: #### L 501.5200, L100.0100, L500.4050, L501.2300 ####[facility] [address] [place], [address] GFR/1.73 sq M.predicted among non-blacks MDRD (S/P/Bld) [Vol rate/Area] 100 mL/min/{1.73_m2} Normal >60 [facility] Comment on above: Result Comment: mL/m in/1.73m2 CKD-EPI Creatinine Equation (2020) Performed By: #### L 501.5200, L100.0100, L500.4050, L501.2300 ####[facility] [address] [place], [address] Globulin (S) [Mass/Vol] 1.9 g/dL Low 2.2-4.2 [facility] Comment on above: Performed By: #### L 501.5200, L100.0100, L500.4050, L501.2300 ####[facility] [address] [place], [address] Glucose [Mass/Vol] 97 mg/dL Normal 70-99 [facility] Comment on above: Performed By: #### L 501.5200, L100.0100, L500.4050, L501.2300 ####[facility] [address] [place], [address] Potassium [Moles/Vol] 4.3 mmol/L Normal 3.3-5.1 [facility] Comment on above: Performed By: #### L 501.5200, L100.0100, L500.4050, L501.2300 ####[facility] [address] [place], [address] Sodium [Moles/Vol] 137 mmol/L Normal 133-145 [facility] Comment on above: Performed By: #### L 501.5200, L100.0100, L500.4050, L501.2300 ####[facility] [address] [place], [address] T PROT 5.6 g/dL Low 5.9-8.4 [facility] Comment on above: Performed By: #### L 501.5200, L100.0100, L500.4050, L501.2300 ####[facility] [address] [place], [address] Urea nitrogen [Mass/Vol] 7 mg/dL Normal 4-19 [facility] Comment on above: Performed By: #### L 501.5200, L100.0100, L500.4050, L501.2300 ####[facility] [address] [place], [address] Electrocardiogram reportOrde red By: Manuel Kim on 11-03-2024 EKG study [facility] Cardiovascular Services [address] [place] [address] 12 Lead EKG 11/03/24 0504 MR#: [id number] Acct: [id number] Name: AIMEE DUCKWORTH Rep #:[id number] : [...] rhythm Normal ECG Confirmed by Manuel Kim ([id number]), photograph editor JANELL RIVERA ([id number]) on 11/03/2024 7:58:31 AM Referred By: LORI Confirmed By: Manuel Kim 11/03/24 0758 Date _ Manuel Kim MD CC: Dr. Román Sandoval MD; Dr. Kamron Erickson MD ~ Signed [facility] Other Phone: EKG study [facility] Cardiovascular Services [address] [place] [address] 12 Lead EKG 11/02/24 1148 MR#: [id number] Acct: [id number] Name: AIMEE DUCKWORTH Rep #:[id number] : 1990 34 From: Manuel walsh MD Attending Dr: Dr. Román Sandoval MD Status: ADM IN Ordering Dr: Tramaien Tovar MD Date: 11/02 Location: ICU Sex: [...] QT Abnormal ECG Confirmed by Manuel Kim ([id number]), photograph editor JANELL RIVERA ([id number]) on 11/03/2024 7:47:36 AM Referred By: Confirmed By: Manuel Kim 11/03/24 0747 Date _ Manuel Kim MD CC: Dr. Román Sandoval MD; Dr. Kamron Erickson MD; Dr. Tramaine Tovar MD ~ Signed [facility] Other Phone: Eosinophil percentageOrdered By: Román Sandoval on 11-03-2024 Eosinophils/100 WBC (Bld) 0.5 % 0-5 [facility] Erythrocyte distribution wid th (RBC) [Ratio]Ordered By: Román Sandoval on 11-03-2024 Erythrocyte distribution width (RBC) [Entitic vol] 48.2 fL High 35.1-43.9 [facility] Erythrocyte distribution wid th ratioOrdered By: Román Sandoval on 11-03-2024 Erythrocyte distribution width (RBC) [Ratio] 13.8 % 11.6-14.6 [facility] Estimation of creatinine vick aranceOrdered By: Román Sandoval on 11-03-2024 Estimated Creatinine Clearance Calc 145.41 ml/min 50-250 [facility] GFR/1.73 sq M.predicted lana g non-blacks MDRD (S/P/Bld) [Vol rate/Area]Ordered By: Román Sandoval on 11-03-2024 Estimated GFR (MDRD) Non-Af Amer 100 >60 [facility] Comment on above: mL/min/1.73m2 CKD-EP I Creatinine Equation (2020) Hematocrit Auto (Bld) [Volum e fraction]Ordered By: Román Sandoval on 11-03-2024 Hematocrit (Bld) [Volume fraction] 38.0 % Low 40-54 [facility] Hemoglobin measurementOrdere d By: Román Sandoval on 11-03-2024 Hemoglobin (Bld) [Mass/Vol] 12.6 g/dL Low 13.0-16. 5 [facility] Immature granulocytes/100 WB C Auto (Bld)Ordered By: Román Sandoval on 11-03-2024 Immature granulocytes/100 WBC (Bld) 0.500 % 0.0-0.9 [facility] Comment on above: IG% - Immature Granu locytes (promyelocytes, myelocytes and metamyelocytes) > 1% indicates that a LEFT SHIFT is Present. Laboratory - Chemistry and C hemistry - challengeOrdered By: Román Sandoval on 11-03-2024 AST [Catalytic activity/Vol] 22 U/L <38 [facility] Lymphocytes Auto (Unsp spec) [#/Vol]Ordered By: Román Sandoval on 11-03-2024 Lymphocytes (Bld) [#/Vol] 1.14 10*3/uL 0.83-4.5 1 [facility] Lymphocytes/100 WBC Auto (Un sp spec)Ordered By: Román Sandoval on 11-03-2024 Lymphocytes/100 WBC (Bld) 19.2 % 19-41 [facility] MCV (mean corpuscular volume ) determinationOrdered By: Román Sandoval on 11-03-2024 MCV (RBC) [Entitic vol] 94.1 fL High 80-94 [facility] Magnesiumon 11-03-2024 Magnesium [Mass/Vol] 2.4 mg/dL High 1.5-2.2 [facility] Comment on above: Performed By: #### L 501.5200, L100.0100, L500.4050, L501.2300 ####[facility] [address] [place], [address] Magnesium (Unsp spec) [Mass/ Vol]Ordered By: Román Sandoval on 11-03-2024 Magnesium [Mass/Vol] 2.4 mg/dL High 1.5-2.2 [facility] Mean corpuscular hemoglobin (MCH) determinationOrdered By: Román Sandoval on 11-03-2024 MCH (RBC) [Entitic mass] 31.2 pg 27.0-32.0 [facility] Mean corpuscular hemoglobin concentration (MCHC) determinationOrdered By: Román Sandoval on 11-03-2024 MCHC (RBC) [Mass/Vol] 33.2 g/dL 32-36 [facility] Mean platelet volume determi nationOrdered By: Román Sandoval on 11-03-2024 Platelet mean volume (Bld) [Entitic vol] 9.6 fL 6.2-12.0 [facility] Monocyte percentageOrdered B y: Román Sandoval on 11-03-2024 Monocytes/100 WBC (Bld) 16.0 % High 0-10 [facility] Neutrophil percentageOrdered By: Román Sandoval on 11-03-2024 Neutrophils/100 WBC (Bld) 63.5 % 47-70 [facility] Nucleated red blood cell per centageOrdered By: Román Sandoval on 11-03-2024 Nucleated RBC/100 WBC (Bld) [Ratio] 0 % 0-5 [facility] Phosphoruson 11-03-2024 Phosphate [Mass/Vol] 3.5 mg/dL Normal 2.7-4.5 [facility] Comment on above: Performed By: #### L 501.5200, L100.0100, L500.4050, L501.2300 ####[facility] [address] [place], [address] Platelet countOrdered By: Huy Sandoval on 11-03-2024 Platelets (Bld) [#/Vol] 172 10*3/uL 150-450 [facility] Potassium (Unsp spec) [Mass/ Vol]Ordered By: Román Sandoval on 11-03-2024 Potassium [Moles/Vol] 4.3 mmol/L 3.3-5.1 [facility] RBC Auto (Bld) [#/Vol]Ordere d By: Román Sandoval on 11-03-2024 RBC (Bld) [#/Vol] 4.04 10*6/uL Low 4.6-6.2 [facility] Serum creatinine measurement (mass/volume)Ordered By: Román Sandoval on 11-03-2024 Creatinine [Mass/Vol] 1.01 mg/dL 0.70-1.20 [facility] Serum globulin measurementOr dered By: Román Sandoval on 11-03-2024 Globulin (S) [Mass/Vol] 1.9 g/dL Low 2.2-4.2 [facility] Serum glucose measurement (m ass/volume)Ordered By: Román Sandoval on 11-03-2024 Glucose [Mass/Vol] 97 mg/dL 70-99 [facility] Serum or plasma alanine comer otransferase (ALT) measurementOrdered By: Román Sandoval on 11-03-2024 ALT [Catalytic activity/Vol] 19 U/L <47 [facility] Serum or plasma albumin mauro urement (mass/volume)Ordered By: Román Sandoval on 11-03-2024 Albumin [Mass/Vol] 3.6 g/dL 3.5-5.0 [facility] Serum or plasma albumin/glob ulin mass ratioOrdered By: Román Sandoval on 11-03-2024 Albumin/Globulin [Mass ratio] 1.9 {ratio} 0.9-2.4 [facility] Serum or plasma alkaline fatuma sphatase measurementOrdered By: Román Sandoval on 11-03-2024 ALP [Catalytic activity/Vol] 66 U/L 40-129 [facility] Serum or plasma calcium mauro urement (mass/volume)Ordered By: Román Sandoval on 11-03-2024 Calcium [Mass/Vol] 7.8 mg/dL 7.6-11.0 [facility] Serum or plasma urea nitroge n measurement (mass/volume)Ordered By: Román Sandoval on 11-03-2024 Urea nitrogen [Mass/Vol] 7 mg/dL 4-19 [facility] Serum phosphorus measurement Ordered By: Román Sandoval on 11-03-2024 Phosphorus Level 3.5 mg/dL 2.7-4.5 [facility] Sodium levelOrdered By: Matt Sandoval on 11-03-2024 Sodium [Moles/Vol] 137 mmol/L 133-145 [facility] Total proteinOrdered By: Maxx Sandoval on 11-03-2024 Protein [Mass/Vol] 5.6 g/dL Low 5.9-8.4 [facility] White blood cell (WBC) count Ordered By: Román Sandoval on 11-03-2024 WBC (Bld) [#/Vol] 5.9 10*3/uL 4.4-11.0 [facility] 12 Lead EKGon 11-02-2024 12 Lead EKG [facility] Cardiovascular Services [address] [place] [address] 12 Lead EKG 11/02/24 1148 MR#: [id number] Acct: [id number] Name: AIMEE DUCKWORTH Rep #: [id number] : 1990 34 From: Manuel Kim MD [...] QT Abnormal ECG Confirmed by Manuel Kim ([id number]), photograph editor JANELL RIVERA ([id number]) on 11/03/2024 7:47:36 AM Referred By: Confirmed By: Manuel iKm 11/03/24 0747 Date Manuel Kim MD CC: Dr. Román Sandoval MD; Dr. Kamron Erickson MD; Dr. Tramaine Tovar MD Signed Normal [facility] Absolute neutrophil countOrd ered By: Tramaine Tovar on 11-02-2024 Neutrophils (Bld) [#/Vol] 5.0 10*3/uL 2.0-7.7 [facility] Acetaminophen (Tylenol) Leve sandra 11-02-2024 Acetaminophen [Mass/Vol] 10.5 ug/mL Normal 8.0-19.0 [facility] Comment on above: Result Comment: Acet aminophen concentrations > 200 ug/mL four hours after ingestion, > 100 ug/mL eight hours after ingestion, and > 50 ug/mL 12 hours after ingestion are potentially toxic. Performed By: #### L 501.8400, L505.5000, L501.8300, L501.9100, L100.0100, L500.4050 ####[facility] [address] [place], [place], [address] Alcohol, Blood (Medical)-Ser umon 11-02-2024 SERUM ETOH < 10.1 Normal <=10.0 [facility] Comment on above: Result Comment: This test is for medical purposes only. The legal definition of intoxication varies according to local law. Performed By: #### L 501.8400, L505.5000, L501.8300, L501.9100, L100.0100, L500.4050 ####[facility] [address] [place], [place], [address] Amphetamines Screen method > 1000 ng/mL Ql (U)Ordered By: Tramaine Tovar on 11-02-2024 Amphetamines Ql (U) Positive <1000 ng/mL [facility] Comment on above: If confirmation test ing is needed, a separate order will be required to send out testing to the reference laboratory. Urine Barbiturates Screen Negative < 200 ng/mL [facility] Anion gap in Serum or Plasma Ordered By: Tramaine Tovar on 11-02-2024 Anion gap [Moles/Vol] 14 mmol/L 5-15 [facility] BUN/creatinine ratioOrdered By: [facility] on 11-02-2024 Urea nitrogen/Creatinine [Mass ratio] 7.4 mg/mg Low 10-20 [facility] Basophil percentageOrdered B y: Tramaine Tovar on 11-02-2024 Basophils/100 WBC (Bld) 0.5 % 0-1 [facility] Bilirubin, totalOrdered By: Tramaine Tovar on 11-02-2024 Bilirubin [Mass/Vol] 0.15 mg/dL 0.00-1.30 [facility] CBC W/Diff, Automatedon 04-0 SMEAR COMMENT SCANNED Normal [facility] Comment on above: Result Comment: SLIG HT MONOCYTOSIS NOTED Performed By: #### L 501.8400, L505.5000, L501.8300, L501.9100, L100.0100, L500.4050 ####[facility] [address] [place], [address] Carbon dioxide, total [Moles /volume] in Central venous bloodOrdered By: Tramaine Tovar on 11-02-2024 CO2 [Moles/Vol] 23.4 mmol/L 21.0-32.0 [facility] Chloride assayOrdered By: Alanis Tovar on 11-02-2024 Chloride [Moles/Vol] 99 mmol/L 98-108 [facility] Comprehensive Metabolic Prof ilon 11-02-2024 Albumin [Mass/Vol] 3.9 g/dL Normal 3.5-5.0 [facility] Comment on above: Performed By: #### L 501.8400, L505.5000, L501.8300, L501.9100, L100.0100, L500.4050 ####[facility] [address] [place], [address] Albumin/Globulin [Mass ratio] 2.0 {ratio} Normal 0.9-2.4 [facility] Comment on above: Performed By: #### L 501.8400, L505.5000, L501.8300, L501.9100, L100.0100, L500.4050 ####[facility] [address] [place], [address] ALK PHOS 74 U/L Normal 40-129 [facility] Comment on above: Performed By: #### L 501.8400, L505.5000, L501.8300, L501.9100, L100.0100, L500.4050 ####[facility] [address] [place], [address] ALT [Catalytic activity/Vol] 21 U/L Normal <=46 [facility] Comment on above: Performed By: #### L 501.8400, L505.5000, L501.8300, L501.9100, L100.0100, L500.4050 ####[facility] [address] [place], [address] AST [Catalytic activity/Vol] 24 U/L Normal <=37 [facility] Comment on above: Performed By: #### L 501.8400, L505.5000, L501.8300, L501.9100, L100.0100, L500.4050 ####[facility] [address] [place], [address] Bilirubin [Mass/Vol] 0.15 mg/dL Normal 0.00-1.30 [facility] Comment on above: Performed By: #### L 501.8400, L505.5000, L501.8300, L501.9100, L100.0100, L500.4050 ####[facility] [address] [place], [address] BUN/CRE 7.4 RATIO Low 10-20 [facility] Comment on above: Performed By: #### L 501.8400, L505.5000, L501.8300, L501.9100, L100.0100, L500.4050 ####[facility] [address] [place], [address] Calcium [Mass/Vol] 8.0 mg/dL Normal 7.6-11.0 [facility] Comment on above: Performed By: #### L 501.8400, L505.5000, L501.8300, L501.9100, L100.0100, L500.4050 ####[facility] [address] [place], [address] Chloride [Moles/Vol] 99 mmol/L Normal 98-108 [facility] Comment on above: Performed By: #### L 501.8400, L505.5000, L501.8300, L501.9100, L100.0100, L500.4050 ####[facility] [address] [place], [address] CO2 [Moles/Vol] 23.4 mmol/L Normal 21.0-32.0 [facility] Comment on above: Performed By: #### L 501.8400, L505.5000, L501.8300, L501.9100, L100.0100, L500.4050 ####[facility] [address] [place], [address] Creatinine [Mass/Vol] 1.22 mg/dL High 0.70-1.20 [facility] Comment on above: Performed By: #### L 501.8400, L505.5000, L501.8300, L501.9100, L100.0100, L500.4050 ####[facility] [address] [place], [address] ECRCL 119.42 ml/min Normal 50-250 [facility] Comment on above: Performed By: #### L 501.8400, L505.5000, L501.8300, L501.9100, L100.0100, L500.4050 ####[facility] [address] [place], [address] GAP 14 Normal 5-15 [facility] Comment on above: Performed By: #### L 501.8400, L505.5000, L501.8300, L501.9100, L100.0100, L500.4050 ####[facility] [address] [place], [address] GFR/1.73 sq M.predicted among non-blacks MDRD (S/P/Bld) [Vol rate/Area] 80 mL/min/{1.73_m2} Normal >60 [facility] Comment on above: Result Comment: mL/m in/1.73m2 CKD-EPI Creatinine Equation (2020) Performed By: #### L 501.8400, L505.5000, L501.8300, L501.9100, L100.0100, L500.4050 ####[facility] [address] [place], [address] Globulin (S) [Mass/Vol] 2.0 g/dL Low 2.2-4.2 [facility] Comment on above: Performed By: #### L 501.8400, L505.5000, L501.8300, L501.9100, L100.0100, L500.4050 ####[facility] [address] [place], [address] Glucose [Mass/Vol] 161 mg/dL High 70-99 [facility] Comment on above: Performed By: #### L 501.8400, L505.5000, L501.8300, L501.9100, L100.0100, L500.4050 ####[facility] [address] [place], [address] Potassium [Moles/Vol] 3.4 mmol/L Normal 3.3-5.1 [facility] Comment on above: Performed By: #### L 501.8400, L505.5000, L501.8300, L501.9100, L100.0100, L500.4050 ####[facility] [address] [place], [address] Sodium [Moles/Vol] 136 mmol/L Normal 133-145 [facility] Comment on above: Performed By: #### L 501.8400, L505.5000, L501.8300, L501.9100, L100.0100, L500.4050 ####[facility] [address] [place], [address] T PROT 5.9 g/dL Normal 5.9-8.4 [facility] Comment on above: Performed By: #### L 501.8400, L505.5000, L501.8300, L501.9100, L100.0100, L500.4050 ####[facility] [address] [place], [address] Urea nitrogen [Mass/Vol] 9 mg/dL Normal 4-19 [facility] Comment on above: Performed By: #### L 501.8400, L505.5000, L501.8300, L501.9100, L100.0100, L500.4050 ####[facility] [address] [place], [address] Emergency Department Summary on 11-02-2024 Emergency Department Summary [facility] Medical Records Department [address] [place] [address] Emergency Department Summary 11/02/24 MR#: [id number] Acct: [id number] Name: AIMEE DUCKWORTH Rep #: [id number] : 1990 34 From: Tramaine Tovar MD PCP: Dr. Kamron Erickson MD Status:REG ER Location: ED HPI History of Present Illness Chief Complaint: Overdose Detail of Chief Complaint: Suicide attempt, took 6450 mg trazodone tablets 30 to 45 minutes [employer] Informant: patient Onset/Context/Timing Onset: Hours Context: Sudden [...] 1 - 2 puff inhalation Q4H PRN FL N 11/02/24 Unknown History aerosol inhaler cough [...] and up (more content not included)... Normal [facility] Eosinophil percentageOrdered By: Tramainedelia Tovar on 11-02-2024 Eosinophils/100 WBC (Bld) 2.1 % 0-5 [facility] Erythrocyte distribution wid th ratioOrdered By: Tramaine Tovar on 11-02-2024 Erythrocyte distribution width (RBC) [Ratio] 13.5 % 11.6-14.6 [facility] Erythrocyte distribution wid th standard deviationOrdered By: [facility] on 11-02-2024 Erythrocyte distribution width (RBC) [Entitic vol] 46.1 fL High 35.1-43.9 [facility] Estimation of creatinine vick aranceOrdered By: Tramaine Tovar on 11-02-2024 Estimated Creatinine Clearance Calc 119.42 ml/min 50-250 [facility] Ethanol [Mass/Vol]Ordered By : Tramaine Tovar on 11-02-2024 Ethyl Alcohol Level < 10.1 mg/dL <10.1 [facility] Comment on above: This test is for med ical purposes only. The legal definition of intoxication varies according to local law. GFR/1.73 sq M.predicted lana g non-blacks MDRD (S/P/Bld) [Vol rate/Area]Ordered By: Tramaine Tovar on 11-02-2024 Estimated GFR (MDRD) Non-Af Amer 80 >60 [facility] Comment on above: mL/min/1.73m2 CKD-EP I Creatinine Equation (2020) H AND P Exam - [facility] 11-02-2024 H&P Exam - Hospitalist [facility] Medical Records Department [address] [place] [address] H P Exam - Hospitalist 11/02/24 1306 MR#: [id number] Acct: [id number] Name: AIMEE DUCKWORTH Rep #: [id number] : 1990 34 From: Román Sandoval MD [...] sulfisoxazole (From Allergy Hives Verified 11/02/24 11:30 [place]) Social History (System 06/10/24 @ 07:12 by [...] % (Auto) 54.1, Lymph % (Auto) 24.9, Burnett % (Auto) 18.0 H, Eos % (Auto) [...] ??? Patient (more content not included)... Normal [facility] Hematocrit Auto (Bld) [Volum e fraction]Ordered By: Tramaine Tovar on 11-02-2024 Hematocrit (Bld) [Volume fraction] 40.5 % 40-54 [facility] Hemoglobin measurementOrdere d By: Tramaine Tovar on 11-02-2024 Hemoglobin (Bld) [Mass/Vol] 13.6 g/dL 13.0-16. 5 [facility] Immature granulocytes/100 WB C Auto (Bld)Ordered By: Tramaine Tovar on 11-02-2024 Immature granulocytes/100 WBC (Bld) 0.400 % 0.0-0.9 [facility] Comment on above: IG% - Immature Granu locytes (promyelocytes, myelocytes and metamyelocytes) > 1% indicates that a LEFT SHIFT is Present. Laboratory - Chemistry and C hemistry - challengeOrdered By: Tramaine Tovar on 11-02-2024 AST [Catalytic activity/Vol] 24 U/L <38 [facility] Lymphocytes Auto (Unsp spec) [#/Vol]Ordered By: Tramaine Tovar on 11-02-2024 Lymphocytes (Bld) [#/Vol] 2.30 10*3/uL 0.83-4.5 1 [facility] Lymphocytes/100 WBC Auto (Un sp spec)Ordered By: Tramaine Tovar on 11-02-2024 Lymphocytes/100 WBC (Bld) 24.9 % 19-41 [facility] MCV (mean corpuscular volume ) determinationOrdered By: Tramaine Tovar on 11-02-2024 MCV (RBC) [Entitic vol] 93.3 fL 80-94 [facility] Manual differential comment Bebeto (Bld) [Interp]Ordered By: Tramaine Tovar on 11-02-2024 Differential Comment SCANNED [facility] Comment on above: SLIGHT MONOCYTOSIS N OTED Mean corpuscular hemoglobin (MCH) determinationOrdered By: Tramaine Tovar on 11-02-2024 MCH (RBC) [Entitic mass] 31.3 pg 27.0-32.0 [facility] Mean corpuscular hemoglobin concentration (MCHC) determinationOrdered By: Tramaine Tovar on 11-02-2024 MCHC (RBC) [Mass/Vol] 33.6 g/dL 32-36 [facility] Mean platelet volume determi nationOrdered By: Tramaine Tovar on 11-02-2024 Platelet mean volume (Bld) [Entitic vol] 9.5 fL 6.2-12.0 [facility] Methadone, urineOrdered By: Tramaine Tovar on 11-02-2024 Urine Methadone Screen Negative < 300 ng/mL [facility] Monocyte percentageOrdered B y: Tramaine Tovar on 11-02-2024 Monocytes/100 WBC (Bld) 18.0 % High 0-10 [facility] Neutrophil percentageOrdered By: Tramaine Tovar on 11-02-2024 Neutrophils/100 WBC (Bld) 54.1 % 47-70 [facility] No Panel InformationOrdered By: Tramaine Tovar on 11-02-2024 Urine Buprenorphine Qualitative Negative < 200 ng/mL [facility] Urine Oxycodone Screen Negative < 100 ng/mL [facility] Nucleated red blood cell per centageOrdered By: Tramaine Tovar on 11-02-2024 Nucleated RBC/100 WBC (Bld) [Ratio] 0 % 0-5 [facility] Platelet countOrdered By: Alanis Tovar on 11-02-2024 Platelets (Bld) [#/Vol] 197 10*3/uL 150-450 [facility] Potassium (Unsp spec) [Mass/ Vol]Ordered By: Tramaine Tovar on 11-02-2024 Potassium [Moles/Vol] 3.4 mmol/L 3.3-5.1 [facility] Quantitative urine opiates m easurementOrdered By: Tramaine Tovar on 11-02-2024 Opiates Ql (U) Negative < 300 ng/mL [facility] RBC Auto (Bld) [#/Vol]Ordere d By: Tramaine Tovar on 11-02-2024 RBC (Bld) [#/Vol] 4.34 10*6/uL Low 4.6-6.2 [facility] Salicylateon 11-02-2024 SALICYLATE 1.8 mg/dL Low 2.8-20.0 [facility] Comment on above: Result Comment: Sali cylate concentrations > 30 mg/dL are potentially toxic. Salicylate concentrations exceeding 60 mg/dL can be lethal. Performed By: #### L 501.8400, L505.5000, L501.8300, L501.9100, L100.0100, L500.4050 ####[facility] [address] [place], [address] Salicylates [Mass/Vol]Ordere d By: Tramaine Tovar on 11-02-2024 Salicylates Level 1.8 mg/dL Low 2.8-20.0 [facility] Comment on above: Salicylate concentra tions > 30 mg/dL are potentially toxic.Salicylate concentrations exceeding 60 mg/dL can be lethal. Serum creatinine measurement (mass/volume)Ordered By: Tramaine Tovar on 11-02-2024 Creatinine [Mass/Vol] 1.22 mg/dL High 0.70-1.20 [facility] Serum globulin measurementOr dered By: Tramaine Tovar on 11-02-2024 Globulin (S) [Mass/Vol] 2.0 g/dL Low 2.2-4.2 [facility] Serum glucose measurement (m ass/volume)Ordered By: Tramaine Tovar on 11-02-2024 Glucose [Mass/Vol] 161 mg/dL High 70-99 [facility] Serum or plasma acetaminophe n measurement (mass/volume)Ordered By: Tramaine Tovar on 11-02-2024 Acetaminophen [Mass/Vol] 10.5 ug/mL 8.0-19.0 [facility] Comment on above: Acetaminophen concen trations > 200 ug/mL four hours after ingestion, > 100 ug/mL eight hours after ingestion, and > 50 ug/mL 12 hours after ingestion are potentially toxic. Serum or plasma alanine comer otransferase (ALT) measurementOrdered By: Tramaine Tovar on 11-02-2024 ALT [Catalytic activity/Vol] 21 U/L <47 [facility] Serum or plasma albumin mauro urement (mass/volume)Ordered By: Tramaine Tovar on 11-02-2024 Albumin [Mass/Vol] 3.9 g/dL 3.5-5.0 [facility] Serum or plasma albumin/glob ulin mass ratioOrdered By: Tramaine Tovar on 11-02-2024 Albumin/Globulin [Mass ratio] 2.0 {ratio} 0.9-2.4 [facility] Serum or plasma alkaline fatuma sphatase measurementOrdered By: Tramaine Tovar on 11-02-2024 ALP [Catalytic activity/Vol] 74 U/L 40-129 [facility] Serum or plasma calcium mauro urement (mass/volume)Ordered By: Tramaine Tovar on 11-02-2024 Calcium [Mass/Vol] 8.0 mg/dL 7.6-11.0 [facility] Serum or plasma urea nitroge n measurement (mass/volume)Ordered By: Tramaine Tovar on 11-02-2024 Urea nitrogen [Mass/Vol] 9 mg/dL 4-19 [facility] Sodium levelOrdered By: Tramaine Tovar on 11-02-2024 Sodium [Moles/Vol] 136 mmol/L 133-145 [facility] Total proteinOrdered By: Tramaine Tovar on 11-02-2024 Protein [Mass/Vol] 5.9 g/dL 5.9-8.4 [facility] Urine Drug Screen (VISTA)on 11-02-2024 AMPHETAMINES Positive Normal <1000 ng/mL [facility] Comment on above: Result Comment: If c onfirmation testing is needed, a separate order will be required to send out testing to the reference laboratory. Performed By: #### L 501.8400, L505.5000, L501.8300, L501.9100, L100.0100, L500.4050 ####[facility] [address] [place], [address] BARBITIURATES Negative Normal < 200 ng/mL [facility] Comment on above: Performed By: #### L 501.8400, L505.5000, L501.8300, L501.9100, L100.0100, L500.4050 ####[facility] [address] [place], [place], [phone] BENZODIAZIPINE Positive Normal < 200 ng/mL [facility] Comment on above: Result Comment: If c onfirmation testing is needed, a separate order will be required to send out testing to the reference laboratory. Performed By: #### L 501.8400, L505.5000, L501.8300, L501.9100, L100.0100,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 500.2500, L501.9100, L100.0100, L505.5000 #### [facility] [address] [place], [place], [id number] EPI,SQUAMOUS 0 SEEN Normal 0-5 [facility] Comment on above: Order Comment: COLLE CTOR TO SPECIFY Performed By: #### L 500.2500, L501.9100, L100.0100, L505.5000 #### [facility] [address] [place], [address] Mucus Ql (Urine sed) 0 SEEN Normal [facility] Comment on above: Order Comment: COLLE CTOR TO SPECIFY Performed By: #### L 500.2500, L501.9100, L100.0100, L505.5000 #### [facility] [address] [place], [address] RBC 0 SEEN Normal 0-5 [facility] Comment on above: Order Comment: COLLE CTOR TO SPECIFY Performed By: #### L 500.2500, L501.9100, L100.0100, L505.5000 #### [facility] [address] [place], [address] WBC 0 SEEN Normal 0-5 [facility] Comment on above: Order Comment: COLLE CTOR TO SPECIFY Performed By: #### L 500.2500, L501.9100, L100.0100, L505.5000 #### [facility] [address] [place], [address] Urine Drug Screen (VISTA)on 06-02-2024 AMPHETAMINES Negative Normal <1000 ng/mL [facility] Comment on above: Performed By: #### L 501.9100, L500.2500, L100.0100, L505.5000 ####[facility] [address] [place], [address] BARBITIURATES Negative Normal < 200 ng/mL [facility] Comment on above: Performed By: #### L 501.9100, L500.2500, L100.0100, L505.5000 ####[facility] [address] [place], [address] BENZODIAZIPINE Negative Normal < 200 ng/mL [facility] Comment on above: Performed By: #### L 501.9100, L500.2500, L100.0100, L505.5000 ####[facility] [address] [place] [address] COCAINE Negative Normal < 300 ng/mL [facility] Comment on above: Performed By: #### L 501.9100, L500.2500, L100.0100, L505.5000 ####[facility] [address] [place] [address] ECSTACY Positive Abnormal < 500 ng/mL [facility] Comment on above: Performed By: #### L 501.9100, L500.2500, L100.0100, L505.5000 ####[facility] [address] [place] [address] METHADONE Negative Normal < 300 ng/mL [facility] Comment on above: Performed By: #### L 501.9100, L500.2500, L100.0100, L505.5000 ####[facility] [address] [place], [place], [phone] OPIATES Negative Normal < 300 ng/mL [facility] Comment on above: Performed By: #### L 501.9100, L500.2500, L100.0100, L505.5000 ####[facility] [address] [place] [address] PCP Negative Normal < 25 ng/mL [facility] Comment on above: Performed By: #### L 501.9100, L500.2500, L100.0100, L505.5000 ####[facility] [address] [place] [address] THC Negative Normal < 50 ng/mL [facility] Comment on above: Performed By: #### L 501.9100, L500.2500, L100.0100, L505.5000 ####[facility] [address] [place], [address] VISTA UDS PH 7 Normal [facility] Comment on above: Performed By: #### L 501.9100, L500.2500, L100.0100, L505.5000 ####[facility] [address] [place], [address] Valproic Acid (Depakene) Lev kerri 06-02-2024 VALPROIC ACID < 3 Low 50-100 [facility] Comment on above: Performed By: #### L 501.8100 #### [facility] [address] [place], [address] Alcohol, Blood (Medical)-Ser umon 04-25-2024 SERUM ETOH 5.0 mg/dL Normal [facility] Comment on above: Result Comment: The serum:whole blood ethanol ratio is approximately 1.14 and varies slightly with hematocrit. Medical Alcohol reference interval and critical value in non-tolerant individuals; 50 - 100 Impairment 100 Intoxication 100 - 250 Severe Poisoning 250 - 400 Deep/possible fatal coma Performed By: #### L 100.0100, L505.5000, L500.2500, L501.9100 ####[facility] [address] [place], [address] Basic Metabolic Profile (BMP )on 04-25-2024 BUN/CRE 10.0 RATIO Normal 10-20 [facility] Comment on above: Performed By: #### L 100.0100, L505.5000, L500.2500, L501.9100 ####[facility] [address] [place], [address] CA,Total 8.3 mg/dL Low 8.5-10.1 [facility] Comment on above: Performed By: #### L 100.0100, L505.5000, L500.2500, L501.9100 ####[facility] [address] [place], [address] Chloride [Moles/Vol] 102 mmol/L Normal 98-107 [facility] Comment on above: Performed By: #### L 100.0100, L505.5000, L500.2500, L501.9100 ####[facility] [address] [place], [address] CO2 [Moles/Vol] 28.0 mmol/L Normal 21.0-32.0 [facility] Comment on above: Performed By: #### L 100.0100, L505.5000, L500.2500, L501.9100 ####[facility] [address] [place], [address] Creatinine [Mass/Vol] 1.10 mg/dL Normal 0.70-1.30 [facility] Comment on above: Result Comment: The validity of the calculated GFR GFRAA in patients over 70 years has not been determined. Clinical correlation is essential. Performed By: #### L 100.0100, L505.5000, L500.2500, L501.9100 ####[facility] [address] [place], [address] ECRCL 124.08 ml/min Normal [facility] Comment on above: Performed By: #### L 100.0100, L505.5000, L500.2500, L501.9100 ####[facility] [address] [place], [address] EST GFR - AA 99 mL/min Normal >60 [facility] Comment on above: Result Comment: Afri can [place] GFR Calc Performed By: #### L 100.0100, L505.5000, L500.2500, L501.9100 ####[facility] [address] [place], [address] GAP 6 Normal 5-15 [facility] Comment on above: Performed By: #### L 100.0100, L505.5000, L500.2500, L501.9100 ####[facility] [address] [place], [address] GFR/1.73 sq M.predicted among non-blacks MDRD (S/P/Bld) [Vol rate/Area] 82 mL/min/{1.73_m2} Normal >60 [facility] Comment on above: Result Comment: Non- GFR Calc Performed By: #### L 100.0100, L505.5000, L500.2500, L501.9100 ####[facility] [address] [place], [address] Glucose [Mass/Vol] 118 mg/dL High 74-106 [facility] Comment on above: Result Comment: Fast ing Glucose result from 100 to 125 mg/dL suggests IMPAIRED HOMEOSTASIS per A.D.A. criteria. Performed By: #### L 100.0100, L505.5000, L500.2500, L501.9100 ####[facility] [address] [place], [address] Potassium [Moles/Vol] 3.3 mmol/L Low 3.5-5.1 [facility] Comment on above: Performed By: #### L 100.0100, L505.5000, L500.2500, L501.9100 ####[facility] [address] [place], [address] Sodium [Moles/Vol] 136 mmol/L Normal 136-145 [facility] Comment on above: Performed By: #### L 100.0100, L505.5000, L500.2500, L501.9100 ####[facility] [address] [place], [address] Urea nitrogen [Mass/Vol] 11 mg/dL Normal 7-18 [facility] Comment on above: Performed By: #### L 100.0100, L505.5000, L500.2500, L501.9100 ####[facility] [address] [place], [address] CBC W/Diff, Automatedon 04-05 Absolute Lymph 3.12 X10 3/uL Normal 0.83-4.51 [facility] Comment on above: Performed By: #### L 100.0100, L505.5000, L500.2500, L501.9100 ####[facility] [address] [place], [address] Absolute Neut 6.4 X10 3/uL Normal 2.0-7.7 [facility] Comment on above: Performed By: #### L 100.0100, L505.5000, L500.2500, L501.9100 ####[facility] [address] [place], [address] Basophils/100 WBC (Bld) 0.6 % Normal 0-1 [facility] Comment on above: Performed By: #### L 100.0100, L505.5000, L500.2500, L501.9100 ####[facility] [address] [place], [address] Eosinophils/100 WBC (Bld) 2.3 % Normal 0-5 [facility] Comment on above: Performed By: #### L 100.0100, L505.5000, L500.2500, L501.9100 ####[facility] [address] [place], [address] Erythrocyte distribution width (RBC) [Ratio] 13.2 % Normal 11.6-14.6 [facility] Comment on above: Performed By: #### L 100.0100, L505.5000, L500.2500, L501.9100 ####[facility] [address] [place], [address] Hematocrit (Bld) [Volume fraction] 39.3 % Low 40-54 [facility] Comment on above: Performed By: #### L 100.0100, L505.5000, L500.2500, L501.9100 ####[facility] [address] [place], [address] Hemoglobin (Bld) [Mass/Vol] 12.6 g/dL Low 13.0-16. 5 [facility] Comment on above: Performed By: #### L 100.0100, L505.5000, L500.2500, L501.9100 ####[facility] [address] [place], [address] IG% 0.300 Normal 0.0-0.9 [facility] Comment on above: Result Comment: IG% - Immature Granulocytes (promyelocytes, myelocytes and metamyelocytes) > 1% indicates that a LEFT SHIFT is Present. Performed By: #### L 100.0100, L505.5000, L500.2500, L501.9100 ####[facility] [address] [place], [address] Lymphocytes/100 WBC (Bld) 29.8 % Normal 19-41 [facility] Comment on above: Performed By: #### L 100.0100, L505.5000, L500.2500, L501.9100 ####[facility] [address] [place], [address] MCH (RBC) [Entitic mass] 29.5 pg Normal 27.0-32.0 [facility] Comment on above: Performed By: #### L 100.0100, L505.5000, L500.2500, L501.9100 ####[facility] [address] [place], [address] MCHC (RBC) [Mass/Vol] 32.1 g/dL Normal 32-36 [facility] Comment on above: Performed By: #### L 100.0100, L505.5000, L500.2500, L501.9100 ####[facility] [address] [place], [address] MCV (RBC) [Entitic vol] 92.0 fL Normal 80-94 [facility] Comment on above: Performed By: #### L 100.0100, L505.5000, L500.2500, L501.9100 ####[facility] [address] [place], [address] Monocytes/100 WBC (Bld) 6.3 % Normal 0-10 [facility] Comment on above: Performed By: #### L 100.0100, L505.5000, L500.2500, L501.9100 ####[facility] [address] [place], [address] Neutrophils/100 WBC (Bld) 60.7 % Normal 47-70 [facility] Comment on above: Performed By: #### L 100.0100, L505.5000, L500.2500, L501.9100 ####[facility] [address] [place], [address] Nucleated RBC (Bld) [#/Vol] 0 10*3/uL Normal 0-5 [facility] Comment on above: Performed By: #### L 100.0100, L505.5000, L500.2500, L501.9100 ####[facility] [address] [place], [address] Platelet mean volume (Bld) [Entitic vol] 9.1 fL Normal 6.2-12.0 [facility] Comment on above: Performed By: #### L 100.0100, L505.5000, L500.2500, L501.9100 ####[facility] [address] [place], [address] Platelets (Bld) [#/Vol] 267 10*3/uL Normal 150-450 [facility] Comment on above: Performed By: #### L 100.0100, L505.5000, L500.2500, L501.9100 ####[facility] [address] [place], [address] RBC (Bld) [#/Vol] 4.27 10*6/uL Low 4.6-6.2 [facility] Comment on above: Performed By: #### L 100.0100, L505.5000, L500.2500, L501.9100 ####[facility] [address] [place], [address] RDW SD 44.8 fl High 35.1-43.9 [facility] Comment on above: Performed By: #### L 100.0100, L505.5000, L500.2500, L501.9100 ####[facility] [address] [place], [address] WBC (Bld) [#/Vol] 10.5 10*3/uL Normal 4.4-11.0 [facility] Comment on above: Performed By: #### L 100.0100, L505.5000, L500.2500, L501.9100 ####[facility] [address] [place], [address] Emergency Department Summary on 04-25-2024 Emergency Department Summary [facility] Medical Records Department [address] [facility] [place] [address] Emergency Department Summary 04/25/24 MR#: [id number] Acct: [id number] Name: AIMEE DUCKWORTH Rep #: [id number] : 1990 33 From: Tramaine Tovar MD PCP: Dr. 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 Normal [facility] Urine Drug Screen (VISTA)on 04-25-2024 AMPHETAMINES Negative Normal <1000 ng/mL [facility] Comment on above: Performed By: #### L 100.0100, L505.5000, L500.2500, L501.9100 ####[facility] [address] [place], [address] BARBITIURATES Negative Normal < 200 ng/mL [facility] Comment on above: Performed By: #### L 100.0100, L505.5000, L500.2500, L501.9100 ####[facility] [address] [place], [address] BENZODIAZIPINE Negative Normal < 200 ng/mL [facility] Comment on above: Performed By: #### L 100.0100, L505.5000, L500.2500, L501.9100 ####[facility] [address] [place], [address] COCAINE Negative Normal < 300 ng/mL [facility] Comment on above: Performed By: #### L 100.0100, L505.5000, L500.2500, L501.9100 ####[facility] [address] [place], [place], [phone] ECSTACY Positive Abnormal < 500 ng/mL [facility] Comment on above: Performed By: #### L 100.0100, L505.5000, L500.2500, L501.9100 ####[facility] [address] [place] [address] METHADONE Negative Normal < 300 ng/mL [facility] Comment on above: Performed By: #### L 100.0100, L505.5000, L500.2500, L501.9100 ####[facility] [address] [place], [address] OPIATES Negative Normal < 300 ng/mL [facility] Comment on above: Performed By: #### L 100.0100, L505.5000, L500.2500, L501.9100 ####[facility] [address] [place], [address] PCP Negative Normal < 25 ng/mL [facility] Comment on above: Performed By: #### L 100.0100, L505.5000, L500.2500, L501.9100 ####[facility] [address] [place], [address] THC Positive Abnormal < 50 ng/mL [facility] Comment on above: Performed By: #### L 100.0100, L505.5000, L500.2500, L501.9100 ####[facility] [address] [place], [address] VISTA UDS PH 5 Normal [facility] Comment on above: Performed By: #### L 100.0100, L505.5000, L500.2500, L501.9100 ####[facility] [address] [place], [address] Alcohol, Blood (Medical)-Ser umon 03-27-2024 SERUM ETOH 5.0 mg/dL Normal [facility] Comment on above: Result Comment: The serum:whole blood ethanol ratio is approximately 1.14 and varies slightly with hematocrit. Medical Alcohol reference interval and critical value in non-tolerant individuals; 50 - 100 Impairment 100 Intoxication 100 - 250 Severe Poisoning 250 - 400 Deep/possible fatal coma Performed By: #### L 500.2500, L501.9100, L100.0100, L505.5000 #### [facility] [address] [place], [address] Basic Metabolic Profile (BMP )on 03-27-2024 BUN/CRE 9.6 RATIO Low 10-20 [facility] Comment on above: Performed By: #### L 500.2500, L501.9100, L100.0100, L505.5000 #### [facility] [address] [place], [address] CA,Total 8.3 mg/dL Low 8.5-10.1 [facility] Comment on above: Performed By: #### L 500.2500, L501.9100, L100.0100, L505.5000 #### [facility] [address] [place], [address] Chloride [Moles/Vol] 107 mmol/L Normal 98-107 [facility] Comment on above: Performed By: #### L 500.2500, L501.9100, L100.0100, L505.5000 #### [facility] [address] [place], [address] CO2 [Moles/Vol] 28.0 mmol/L Normal 21.0-32.0 [facility] Comment on above: Performed By: #### L 500.2500, L501.9100, L100.0100, L505.5000 #### [facility] [address] [place], [address] Creatinine [Mass/Vol] 1.15 mg/dL Normal 0.70-1.30 [facility] Comment on above: Result Comment: The validity of the calculated GFR GFRAA in patients over 70 years has not been determined. Clinical correlation is essential. Performed By: #### L 500.2500, L501.9100, L100.0100, L505.5000 #### [facility] [address] [place], [address] ECRCL 120.23 ml/min Normal [facility] Comment on above: Performed By: #### L 500.2500, L501.9100, L100.0100, L505.5000 #### [facility] [address] [place], [address] EST GFR - AA 94 mL/min Normal >60 [facility] Comment on above: Result Comment: Afri can [place] GFR Calc Performed By: #### L 500.2500, L501.9100, L100.0100, L505.5000 #### [facility] [address] [place], [address] GAP 6 Normal 5-15 [facility] Comment on above: Performed By: #### L 500.2500, L501.9100, L100.0100, L505.5000 #### [facility] [address] [place], [address] GFR/1.73 sq M.predicted among non-blacks MDRD (S/P/Bld) [Vol rate/Area] 78 mL/min/{1.73_m2} Normal >60 [facility] Comment on above: Result Comment: Non- GFR Calc Performed By: #### L 500.2500, L501.9100, L100.0100, L505.5000 #### [facility] [address] [place], [address] Glucose [Mass/Vol] 122 mg/dL High 74-106 [facility] Comment on above: Result Comment: Fast ing Glucose result from 100 to 125 mg/dL suggests IMPAIRED HOMEOSTASIS per A.D.A. criteria. Performed By: #### L 500.2500, L501.9100, L100.0100, L505.5000 #### [facility] [address] [place], [address] Potassium [Moles/Vol] 3.4 mmol/L Low 3.5-5.1 [facility] Comment on above: Performed By: #### L 500.2500, L501.9100, L100.0100, L505.5000 #### [facility] [address] [place], [address] Sodium [Moles/Vol] 141 mmol/L Normal 136-145 [facility] Comment on above: Performed By: #### L 500.2500, L501.9100, L100.0100, L505.5000 #### [facility] [address] [place], [address] Urea nitrogen [Mass/Vol] 11 mg/dL Normal 7-18 [facility] Comment on above: Performed By: #### L 500.2500, L501.9100, L100.0100, L505.5000 #### [facility] [address] [place], [address] Urine Drug Screen (VISTA)on 03-27-2024 AMPHETAMINES Negative Normal <1000 ng/mL [facility] Comment on above: Performed By: #### L 500.2500, L501.9100, L100.0100, L505.5000 #### [facility] [address] [place], [address] BARBITIURATES Negative Normal < 200 ng/mL [facility] Comment on above: Performed By: #### L 500.2500, L501.9100, L100.0100, L505.5000 #### [facility] [address] [place], [address] BENZODIAZIPINE Negative Normal < 200 ng/mL [facility] Comment on above: Performed By: #### L 500.2500, L501.9100, L100.0100, L505.5000 #### [facility] [address] [place], [address] COCAINE Negative Normal < 300 ng/mL [facility] Comment on above: Performed By: #### L 500.2500, L501.9100, L100.0100, L505.5000 #### [facility] [address] [place], [address] ECSTACY Positive Abnormal < 500 ng/mL [facility] Comment on above: Performed By: #### L 500.2500, L501.9100, L100.0100, L505.5000 #### [facility] [address] [place], [address] METHADONE Negative Normal < 300 ng/mL [facility] Comment on above: Performed By: #### L 500.2500, L501.9100, L100.0100, L505.5000 #### [facility] [address] [place], [address] OPIATES Negative Normal < 300 ng/mL [facility] Comment on above: Performed By: #### L 500.2500, L501.9100, L100.0100, L505.5000 #### [facility] [address] [place], [address] PCP Negative Normal < 25 ng/mL [facility] Comment on above: Performed By: #### L 500.2500, L501.9100, L100.0100, L505.5000 #### [facility] [address] [place], [address] THC Negative Normal < 50 ng/mL [facility] Comment on above: Performed By: #### L 500.2500, L501.9100, L100.0100, L505.5000 #### [facility] [address] [place], [address] VISTA UDS PH 6 Normal [facility] Comment on above: Performed By: #### L 500.2500, L501.9100, L100.0100, L505.5000 #### [facility] [address] [place], [address] CBC W/Diff, Automatedon 08-2023 Absolute Lymph 3.95 X10 3/uL Normal 0.83-4.51 [facility] Comment on above: Performed By: #### L 500.2500, L501.9100, L100.0100, L505.5000 #### [facility] [address] [place], [address] Absolute Neut 7.7 X10 3/uL Normal 2.0-7.7 [facility] Comment on above: Performed By: #### L 500.2500, L501.9100, L100.0100, L505.5000 #### [facility] [address] [place], [address] Basophils/100 WBC (Bld) 0.6 % Normal 0-1 [facility] Comment on above: Performed By: #### L 500.2500, L501.9100, L100.0100, L505.5000 #### [facility] [address] [place], [address] Eosinophils/100 WBC (Bld) 3.3 % Normal 0-5 [facility] Comment on above: Performed By: #### L 500.2500, L501.9100, L100.0100, L505.5000 #### [facility] [address] [place], [address] Erythrocyte distribution width (RBC) [Ratio] 13.2 % Normal 11.6-14.6 [facility] Comment on above: Performed By: #### L 500.2500, L501.9100, L100.0100, L505.5000 #### [facility] [address] [place], [address] Hematocrit (Bld) [Volume fraction] 43.5 % Normal 40-54 [facility] Comment on above: Performed By: #### L 500.2500, L501.9100, L100.0100, L505.5000 #### [facility] [address] [place], [address] Hemoglobin (Bld) [Mass/Vol] 14.3 g/dL Normal 13.0-16. 5 [facility] Comment on above: Performed By: #### L 500.2500, L501.9100, L100.0100, L505.5000 #### [facility] [address] [place], [address] IG% 0.400 Normal 0.0-0.9 [facility] Comment on above: Result Comment: IG% - Immature Granulocytes (promyelocytes, myelocytes and metamyelocytes) > 1% indicates that a LEFT SHIFT is Present. Performed By: #### L 500.2500, L501.9100, L100.0100, L505.5000 #### [facility] [address] [place], [address] Lymphocytes/100 WBC (Bld) 29.3 % Normal 19-41 [facility] Comment on above: Performed By: #### L 500.2500, L501.9100, L100.0100, L505.5000 #### [facility] [address] [place], [address] MCH (RBC) [Entitic mass] 29.4 pg Normal 27.0-32.0 [facility] Comment on above: Performed By: #### L 500.2500, L501.9100, L100.0100, L505.5000 #### [facility] [address] [place], [address] MCHC (RBC) [Mass/Vol] 32.9 g/dL Normal 32-36 [facility] Comment on above: Performed By: #### L 500.2500, L501.9100, L100.0100, L505.5000 #### [facility] [address] [place], [address] MCV (RBC) [Entitic vol] 89.5 fL Normal 80-94 [facility] Comment on above: Performed By: #### L 500.2500, L501.9100, L100.0100, L505.5000 #### [facility] [address] [place], [address] Monocytes/100 WBC (Bld) 9.3 % Normal 0-10 [facility] Comment on above: Performed By: #### L 500.2500, L501.9100, L100.0100, L505.5000 #### [facility] [address] [place], [address] Neutrophils/100 WBC (Bld) 57.1 % Normal 47-70 [facility] Comment on above: Performed By: #### L 500.2500, L501.9100, L100.0100, L505.5000 #### [facility] [address] [place], [address] Nucleated RBC (Bld) [#/Vol] 0 10*3/uL Normal 0-5 [facility] Comment on above: Performed By: #### L 500.2500, L501.9100, L100.0100, L505.5000 #### [facility] [address] [place], [address] Platelet mean volume (Bld) [Entitic vol] 9.2 fL Normal 6.2-12.0 [facility] Comment on above: Performed By: #### L 500.2500, L501.9100, L100.0100, L505.5000 #### [facility] [address] [place], [address] Platelets (Bld) [#/Vol] 321 10*3/uL Normal 150-450 [facility] Comment on above: Performed By: #### L 500.2500, L501.9100, L100.0100, L505.5000 #### [facility] [address] [place], [address] RBC (Bld) [#/Vol] 4.86 10*6/uL Normal 4.6-6.2 [facility] Comment on above: Performed By: #### L 500.2500, L501.9100, L100.0100, L505.5000 #### [facility] [address] [place], [address] RDW SD 43.3 fl Normal 35.1-43.9 [facility] Comment on above: Performed By: #### L 500.2500, L501.9100, L100.0100, L505.5000 #### [facility] [address] [place], [address] WBC (Bld) [#/Vol] 13.5 10*3/uL High 4.4-11.0 [facility] Comment on above: Performed By: #### L 500.2500, L501.9100, L100.0100, L505.5000 #### [facility] [address] [place], [address] Emergency Department Summary on 03-26-2024 Emergency Department Summary [facility] Medical Records Department [address] [place] [address] Emergency Department Summary 03/26/24 MR#: [id number] Acct: [id number] Name: AIMEE DUCKWORTH Rep #: [id number] : 1990 33 From: Gumaro Morejon DO PCP: Dr. Kamron Erickson MD Status:REG ER Location: ED ADDENDUM by Dr. Berhane Adame MD on 03/27/24 at 0943 Patient endorsed to me by Dr. Gumaro Jones as he is awaiting evaluation by mental health/crisis. Reported by RN that he has been accepted at [facility] and is awaiting transfer. 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 [facility] Medical History Schizophrenia Migraines Asthma Home Medications [...] 18 18 (more content not included)... Normal [facility] Lyme Screen W/Reflex WBon Lyme IGG BRANDON Positive Normal Negative [facility] Comment on above: Order Comment: Order Date: 02/03/24Order Info: 9586-9 - LYMS Performed By: #### L 100.0500, L7000.5300, L500.4050 ####[facility] [address] [place], [place], [id number] Lyme IGM BRANDON Positive Normal Negative [facility] Comment on above: Order Comment: Order Date: 02/03/24Order Info: 9586-9 - LYMS Performed By: #### L 100.0500, L7000.5300, L500.4050 ####[facility] [address] [place], [place], [address] LYME SCREEN Ab Positive Normal Negative [facility] Comment on above: Order Comment: Order Date: 02/03/24Order Info: 9586-9 - LYMS Result Comment: Evid ence of Lyme antibodies; confirmation indicated. See Lyme IgG and Lyme IgM results (reflex testing), and Lyme interpretation for final interpretation of the Lyme serology reflex algorithm. Performed By: #### L 100.0500, L7000.5300, L500.4050 ####[facility] [address] [place], [place], [address] LYME SCREEN Ab Comment Abnormal . [facility] Comment on above: Order Comment: Order Date: [...] 14 days if clinically warranted. Performed at: [address] [id number] [employer]: Santiago Saldaña PhD, Phone: [phone] Performed By: #### L 100.0500, L7000.5300, L500.4050 ####[facility] [address] [place], [place], [id number] CBC-Complete Blood Cnt No Di ffon 02-03-2024 Erythrocyte distribution width (RBC) [Ratio] 13.2 % Normal 11.6-14.6 [facility] Comment on above: Order Comment: Order Date: 02/03/24Order Info: [id number] - CBC Performed By: #### L 100.0500, L7000.5300, L500.4050 ####[facility] [address] [place], [place], [address] Hematocrit (Bld) [Volume fraction] 37.8 % Low 40-54 [facility] Comment on above: Order Comment: Order Date: 02/03/24Order Info: [id number] - CBC Performed By: #### L 100.0500, L7000.5300, L500.4050 ####[facility] [address] [place], [place], [phone] Hemoglobin (Bld) [Mass/Vol] 11.9 g/dL Low 13.0-16. 5 [facility] Comment on above: Order Comment: Order Date: 02/03/24Order Info: [id number] - CBC Performed By: #### L 100.0500, L7000.5300, L500.4050 ####[facility] [address] [place], [address] MCH (RBC) [Entitic mass] 29.8 pg Normal 27.0-32.0 [facility] Comment on above: Order Comment: Order Date: 02/03/24Order Info: [id number] - CBC Performed By: #### L 100.0500, L7000.5300, L500.4050 ####[facility] [address] [place], [address] MCHC (RBC) [Mass/Vol] 31.5 g/dL Low 32-36 [facility] Comment on above: Order Comment: Order Date: 02/03/24Order Info: [id number] - CBC Performed By: #### L 100.0500, L7000.5300, L500.4050 ####[facility] [address] [place], [address] MCV (RBC) [Entitic vol] 94.7 fL High 80-94 [facility] Comment on above: Order Comment: Order Date: 02/03/24Order Info: [id number] - CBC Performed By: #### L 100.0500, L7000.5300, L500.4050 ####[facility] [address] [place], [address] Platelet mean volume (Bld) [Entitic vol] 9.1 fL Normal 6.2-12.0 [facility] Comment on above: Order Comment: Order Date: 02/03/24Order Info: [id number] - CBC Performed By: #### L 100.0500, L7000.5300, L500.4050 ####[facility] [address] [place], [address] Platelets (Bld) [#/Vol] 363 10*3/uL Normal 150-450 [facility] Comment on above: Order Comment: Order Date: 02/03/24Order Info: [id number] - CBC Performed By: #### L 100.0500, L7000.5300, L500.4050 ####[facility] [address] [place], [address] RBC (Bld) [#/Vol] 3.99 10*6/uL Low 4.6-6.2 [facility] Comment on above: Order Comment: Order Date: 02/03/24Order Info: [id number] - CBC Performed By: #### L 100.0500, L7000.5300, L500.4050 ####[facility] [address] [place], [address] RDW SD 45.7 fl High 35.1-43.9 [facility] Comment on above: Order Comment: Order Date: 02/03/24Order Info: [id number] - CBC Performed By: #### L 100.0500, L7000.5300, L500.4050 ####[facility] [address] [place], [address] WBC (Bld) [#/Vol] 9.7 10*3/uL Normal 4.4-11.0 [facility] Comment on above: Order Comment: Order Date: 02/03/24Order Info: [id number] - CBC Performed By: #### L 100.0500, L7000.5300, L500.4050 ####[facility] [address] [place], [address] Comprehensive Metabolic Prof gaon 02-03-2024 Albumin [Mass/Vol] 2.6 g/dL Low 3.2-5.0 [facility] Comment on above: Order Comment: Order Date: 02/03/24Order Info: 0786-1 - CMP Performed By: #### L 100.0500, L7000.5300, L500.4050 ####[facility] [address] [place], [address] Albumin/Globulin [Mass ratio] 0.6 {ratio} Low 0.9-2.4 [facility] Comment on above: Order Comment: Order Date: 02/03/24Order Info: 0786-1 - CMP Performed By: #### L 100.0500, L7000.5300, L500.4050 ####[facility] [address] [place], [address] ALK P 84 U/L Normal 45-117 [facility] Comment on above: Order Comment: Order Date: 02/03/24Order Info: 0786-1 - CMP Performed By: #### L 100.0500, L7000.5300, L500.4050 ####[facility] [address] [place], [address] ALT [Catalytic activity/Vol] 15 U/L Low 16-61 [facility] Comment on above: Order Comment: Order Date: 02/03/24Order Info: 0786-1 - CMP Performed By: #### L 100.0500, L7000.5300, L500.4050 ####[facility] [address] [place], [address] AST [Catalytic activity/Vol] 13 U/L Low 15-37 [facility] Comment on above: Order Comment: Order Date: 02/03/24Order Info: 0786-1 - CMP Result Comment: Slig ht Hemolysis, Result may be falsely increased. Performed By: #### L 100.0500, L7000.5300, L500.4050 ####[facility] [address] [place], [address] Bilirubin [Mass/Vol] 0.30 mg/dL Normal 0.20-1.00 [facility] Comment on above: Order Comment: Order Date: 02/03/24Order Info: 0786-1 - CMP Result Comment: For patients on eltrombopag therapy, use of Dimension [place] TBIL is not recommended. Performed By: #### L 100.0500, L7000.5300, L500.4050 ####[facility] [address] [place], [address] BUN/CRE 5.8 RATIO Low 10-20 [facility] Comment on above: Order Comment: Order Date: 02/03/24Order Info: 0786-1 - CMP Performed By: #### L 100.0500, L7000.5300, L500.4050 ####[facility] [address] [place], [address] CA,Total 8.7 mg/dL Normal 8.5-10.1 [facility] Comment on above: Order Comment: Order Date: 02/03/24Order Info: 0786-1 - CMP Performed By: #### L 100.0500, L7000.5300, L500.4050 ####[facility] [address] [place], [address] Chloride [Moles/Vol] 106 mmol/L Normal 98-107 [facility] Comment on above: Order Comment: Order Date: 02/03/24Order Info: 0786-1 - CMP Performed By: #### L 100.0500, L7000.5300, L500.4050 ####[facility] [address] [place], [address] CO2 [Moles/Vol] 27.0 mmol/L Normal 21.0-32.0 [facility] Comment on above: Order Comment: Order Date: 02/03/24Order Info: 0786-1 - CMP Performed By: #### L 100.0500, L7000.5300, L500.4050 ####[facility] [facility] [address] [place], [address] Creatinine [Mass/Vol] 1.04 mg/dL Normal 0.70-1.30 [facility] Comment on above: Order Comment: Order Date: 02/03/24Order Info: 0786-1 - CMP Result Comment: The validity of the calculated GFR GFRAA in patients over 70 years has not been determined. Clinical correlation is essential. Performed By: #### L 100.0500, L7000.5300, L500.4050 ####[facility] [address] [place], [address] EST GFR - AA 106 mL/min Normal >60 [facility] Comment on above: Order Comment: Order Date: 02/03/24Order Info: 0786-1 - CMP Result Comment: Afri can [place] GFR Calc Performed By: #### L 100.0500, L7000.5300, L500.4050 ####[facility] [address] [place], [address] GAP 5 Normal 5-15 [facility] Comment on above: Order Comment: Order Date: 02/03/24Order Info: 0786- - CMP Performed By: #### L 100.0500, L7000.5300, L500.4050 ####[facility] [address] [place], [address] GFR/1.73 sq M.predicted among non-blacks MDRD (S/P/Bld) [Vol rate/Area] 87 mL/min/{1.73_m2} Normal >60 [facility] Comment on above: Order Comment: Order Date: 02/03/24Order Info: 0786-1 - CMP Result Comment: Non- GFR Calc Performed By: #### L 100.0500, L7000.5300, L500.4050 ####[facility] [address] [place], [address] Globulin (S) [Mass/Vol] 4.0 g/dL Normal 2.2-4.2 [facility] Comment on above: Order Comment: Order Date: 02/03/24Order Info: 0786-1 - CMP Performed By: #### L 100.0500, L7000.5300, L500.4050 ####[facility] [address] [place], [address] Glucose [Mass/Vol] 87 mg/dL Normal 74-106 [facility] Comment on above: Order Comment: Order Date: 02/03/24Order Info: 0786-1 - CMP Performed By: #### L 100.0500, L7000.5300, L500.4050 ####[facility] [address] [place], [address] Potassium [Moles/Vol] 4.3 mmol/L Normal 3.5-5.1 [facility] Comment on above: Order Comment: Order Date: 02/03/24Order Info: 0786-1 - CMP Result Comment: Slig ht Hemolysis, Result may be falsely increased. Performed By: #### L 100.0500, L7000.5300, L500.4050 ####[facility] [address] [place], [address] Sodium [Moles/Vol] 138 mmol/L Normal 136-145 [facility] Comment on above: Order Comment: Order Date: 02/03/24Order Info: 0786-1 - CMP Performed By: #### L 100.0500, L7000.5300, L500.4050 ####[facility] [address] [place], [address] T PROT 6.6 g/dL Normal 6.4-8.2 [facility] Comment on above: Order Comment: Order Date: 02/03/24Order Info: 0786-1 - CMP Performed By: #### L 100.0500, L7000.5300, L500.4050 ####[facility] [address] [place], [address] Urea nitrogen [Mass/Vol] 6 mg/dL Low 7-18 [facility] Comment on above: Order Comment: Order Date: 02/03/24Order Info: 0786-1 - CMP Performed By: #### L 100.0500, L7000.5300, L500.4050 ####[facility] [address] [place], [place], [address] Brain/Head without Contrasto n 01-08-2024 Brain/Head without Contrast [facility] Imaging Services [address] [place] [address] Brain/Head without Contrast MR#: [id number] Acct: [id number] Name: AIMEE DUCKWORTH Rep #: [id number] : 1990 M 33 From: Douglas grijalva MD PCP: Dr. Kamron Erickson MD Status: [facility] Study: Brain/Head without Contrast Date of Exam: 01/25 Exam# [id number] Ordering Dr: Gustavo Garcia [place] [id number] STUDY: CT BRAIN WITHOUT CONTRAST REASON FOR [...] Signed: Douglas Burns MD at 14:26 EDT , CC: Dr. Gustavo Garcia DO; Dr. 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 Vision is unaffected. [facility] Medical History Schizophrenia Migraines Asthma Home Medications [...] Impression(s) from (more content not included)... Normal [facility] CT ABDOMEN PELVIS WITH IV CO NTRAST [...] 6-12 months, then CT at 18-24 months /[facility] Workstation ID: [id number] Dictated by: LINO BERMUDEZ on FriMay 06, 2023 9:44:43 PM EDT Transcribed by: LUX ERNST on FriMay 06, 2023 9:48:44 PM EDT Finalized by: LINO BERMUDEZ on FriMay 06, 2023 9:54:17 PM EDT [facility] Comment on above: Order Comment: Injur y/Trauma [...] Auto (Unsp spec) [#/Vol] 1.76 10*3/uL 0.83-4.51 [facility] Basophil percentageOrdered B y: Gustavo Garcia on 04-13-2023 Basophils/100 WBC (Bld) 0.3 % 0-1 [facility] Bilirubin [Mass/Vol] 0.40 mg/dL 0.20-1.00 [facility] Comment on above: For patients on eltr ombopag therapy, use of Dimension [place] TBIL is not recommended. Chloride [Moles/Vol] 105 mmol/L 98-107 [facility] Eosinophils/100 WBC (Bld) 1.3 % 0-5 [facility] Glucose [Mass/Vol] 126 mg/dL 74-106 [facility] Comment on above: Fasting Glucose resu lt greater than or equal to 126 mg/dL suggests DIABETES MELLITUS per A.D.A. criteria. Neutrophils (Bld) [#/Vol] 12.9 10*3/uL 2.0-7.7 [facility] Neutrophils/100 WBC (Bld) 82.3 % 47-70 [facility] Potassium [Moles/Vol] 3.3 mmol/L 3.5-5.1 [facility] Protein [Mass/Vol] 7.1 g/dL 6.4-8.2 [facility] Sodium [Moles/Vol] 141 mmol/L 136-145 [facility] WBC (Bld) [#/Vol] 15.7 10*3/uL 4.4-11.0 [facility] Blood erythrocytes count (nu mber/volume)Ordered By: Gustavo Garcia on 04-13-2023 RBC (Bld) [#/Vol] 5.04 10*6/uL 4.6-6.2 [facility] Blood hemoglobin measurement (mass/volume)Ordered By: Gustavo Garcia on 04-13-2023 Hemoglobin (Bld) [Mass/Vol] 14.9 g/dL 13.0-16. 5 [facility] Blood lymphocytes/100 leukoc ytesOrdered By: Gustavo Garcia on 04-13-2023 Lymphocytes/100 WBC (Bld) 11.2 % 19-41 [facility] Blood monocytes/100 leukocyt esOrdered By: Gustavo Garcia on 04-13-2023 Monocytes/100 WBC (Bld) 4.5 % 0-10 [facility] Blood platelet mean volumeOr dered By: Gustavo Garcia on 04-13-2023 Platelet mean volume (Bld) [Entitic vol] 9.3 fL 6.2-12.0 [facility] Determination of erythrocyte mean corpuscular volume (MCV)Ordered By: Gustavo Garcia on 04-13-2023 MCV (RBC) [Entitic vol] 89.5 fL 80-94 [facility] Direct bilirubinOrdered By: Gustavo Garcia on 04-13-2023 Bilirubin.direct [Mass/Vol] 0.14 mg/dL 0.00-0.3 0 [facility] Hematocrit Auto (Bld) [Volum e fraction]Ordered By: Gustavo Garcia on 04-13-2023 Hematocrit (Bld) [Volume fraction] 45.1 % 40-54 [facility] Laboratory - Chemistry and C hemistry - challengeOrdered By: Gustavo Garcia on 04-13-2023 ALP [Catalytic activity/Vol] 95 U/L 45-117 [facility] ALT [Catalytic activity/Vol] 18 U/L 16-61 [facility] CO2 [Moles/Vol] 30.0 mmol/L 21.0-32.0 [facility] Globulin (S) [Mass/Vol] 3.4 g/dL 2.2-4.2 [facility] Lipase [Catalytic activity/Vol] 34 U/L 13-75 [facility] Comment on above: Please note:LIPASE r evised reference range effective 22. New Lipase methodology. Expected to produce lower values than the previous assay method. NEW Reference Range: 13 - 75 U/L Urea nitrogen/Creatinine [Mass ratio] 8.2 mg/mg 10-20 [facility] Laboratory - Hematology and Cell countsOrdered By: Gustavo Garcia on 04-13-2023 Erythrocyte distribution width (RBC) [Entitic vol] 42.0 fL 35.1-43.9 [facility] Erythrocyte distribution width (RBC) [Ratio] 12.8 % 11.6-14.6 [facility] Immature granulocytes/100 WBC (Bld) 0.400 % 0.0-0.9 [facility] Comment on above: IG% - Immature Granu locytes (promyelocytes, myelocytes and metamyelocytes) > 1% indicates that a LEFT SHIFT is Present. MCH (RBC) [Entitic mass] 29.6 pg 27.0-32.0 [facility] Nucleated RBC/100 WBC (Bld) [Ratio] 0 % 0-5 [facility] MCHC Auto (RBC) [Mass/Vol]Or dered By: Gustavo Garcia on 04-13-2023 MCHC (RBC) [Mass/Vol] 33.0 g/dL 32-36 [facility] No Panel InformationOrdered By: Gustavo Garcia on 04-13-2023 Estimated Creatinine Clearance Calc 120.00 ml/min [facility] Estimated GFR (MDRD) Amer 115 mL/min >60 [facility] Comment on above: GFR Calc Estimated GFR (MDRD) Non-Af Amer 95 mL/min >60 [facility] Comment on above: Non- GFR Calc Platelets bldOrdered By: Eric Garcia on 04-13-2023 Platelets (Bld) [#/Vol] 351 10*3/uL 150-450 [facility] Serum or plasma albumin mauro urement (mass/volume)Ordered By: Gustavo Garcia on 04-13-2023 Albumin [Mass/Vol] 3.7 g/dL 3.2-5.0 [facility] Serum or plasma calcium mauro urement (mass/volume)Ordered By: Gustavo Garcia on 04-13-2023 Calcium [Mass/Vol] 8.6 mg/dL 8.5-10.1 [facility] Serum or plasma creatinine m easurement (mass/volume)Ordered By: Gustavo Garcia on 04-13-2023 Creatinine [Mass/Vol] 0.97 mg/dL 0.70-1.30 [facility] Comment on above: The validity of the calculated GFR & GFRAA in patients over 70 years has not been determined. Clinical correlation is essential. Serum or plasma urea nitroge n measurement (mass/volume)Ordered By: Gustavo Garcia on 04-13-2023 Urea nitrogen [Mass/Vol] 8 mg/dL 7-18 [facility] Thin prep Papanicolaou smear with manual screeningOrdered By: Gustavo aGrcia on 04-13-2023 Thin prep Papanicolaou smear with manual screening 10 U/L 15-37 [facility] Thin prep Papanicolaou smear with manual screening 6 5-15 [facility] Absolute lymphocyte counton 05-29-2022 Lymphocytes Auto (Unsp spec) [#/Vol] 2.50 10*3/uL 0.83-4.51 [facility] Work Phone: Basophil percentageon 2021 Basophils/100 WBC (Bld) 0.3 % 0-1 [facility] Work Phone: Bilirubin [Mass/Vol] 0.30 mg/dL 0.20-1.00 [facility] Work Phone: Comment on above: For patients on eltr ombopag therapy, use of Dimension [place] TBIL is not recommended. Chloride [Moles/Vol] 110 mmol/L 98-107 [facility] Work Phone: Eosinophils/100 WBC (Bld) 0.8 % 0-5 [facility] Work Phone: Glucose [Mass/Vol] 94 mg/dL 74-106 [facility] Work Phone: Neutrophils (Bld) [#/Vol] 8.4 10*3/uL 2.0-7.7 [facility] Work Phone: Neutrophils/100 WBC (Bld) 71.5 % 47-70 [facility] Work Phone: Potassium [Moles/Vol] 3.7 mmol/L 3.5-5.1 [facility] Work Phone: Protein [Mass/Vol] 7.6 g/dL 6.4-8.2 [facility] Work Phone: Sodium [Moles/Vol] 142 mmol/L 136-145 [facility] Work Phone: WBC (Bld) [#/Vol] 11.8 10*3/uL 4.4-11.0 [facility] Work Phone: Blood erythrocytes count (nu mber/volume)on 05-29-2022 RBC (Bld) [#/Vol] 4.87 10*6/uL 4.6-6.2 [facility] Work Phone: Blood hemoglobin measurement (mass/volume)on 05-29-2022 Hemoglobin (Bld) [Mass/Vol] 14.8 g/dL 13.0-16. 5 [facility] Work Phone: Blood lymphocytes/100 leukoc yteson 05-29-2022 Lymphocytes/100 WBC (Bld) 21.2 % 19-41 [facility] Work Phone: Blood monocytes/100 leukocyt eson 05-29-2022 Monocytes/100 WBC (Bld) 5.8 % 0-10 [facility] Work Phone: Blood platelet mean volumeon 05-29-2022 Platelet mean volume (Bld) [Entitic vol] 9.6 fL 6.2-12.0 [facility] Work Phone: [phone] Determination of erythrocyte mean corpuscular volume (MCV)on 05-29-2022 MCV (RBC) [Entitic vol] 91.8 fL 80-94 [facility] Work Phone: [phone] Hematocrit Auto (Bld) [Volum e fraction]on 05-29-2022 Hematocrit (Bld) [Volume fraction] 44.7 % 40-54 [facility] Work Phone: Laboratory - Chemistry and C hemistry - challengeon 05-29-2022 ALP [Catalytic activity/Vol] 94 U/L 45-117 [facility] Work Phone: [phone] ALT [Catalytic activity/Vol] 23 U/L 16-61 [facility] Work Phone: [phone] CO2 [Moles/Vol] 26.0 mmol/L 21.0-32.0 [facility] Work Phone: Globulin (S) [Mass/Vol] 3.6 g/dL 2.2-4.2 [facility] Work Phone: [phone] Urea nitrogen/Creatinine [Mass ratio] 11.9 mg/mg 10-20 [facility] Work Phone: [phone] Laboratory - Drug toxicology on 05-29-2022 Amphetamines Ql (U) Negative <1000 ng/mL [facility] Work Phone: [phone] Benzodiazepines Ql (U) Negative < 200 ng/mL [facility] Work Phone: [phone] Cannabinoids Screen Ql (U) Positive < 50 ng/m L [facility] Work Phone: Cocaine Ql (U) Negative < 300 ng/mL [facility] Work Phone: Opiates Ql (U) Negative < 300 ng/mL [facility] Work Phone: Laboratory - Hematology and Cell countson 05-29-2022 Erythrocyte distribution width (RBC) [Entitic vol] 42.7 fL 35.1-43.9 [facility] Work Phone: Erythrocyte distribution width (RBC) [Ratio] 12.6 % 11.6-14.6 [facility] Work Phone: Immature granulocytes/100 WBC (Bld) 0.400 % 0.0-0.9 [facility] Work Phone: Comment on above: IG% - Immature Granu locytes (promyelocytes, myelocytes and metamyelocytes) > 1% indicates that a LEFT SHIFT is Present. MCH (RBC) [Entitic mass] 30.4 pg 27.0-32.0 [facility] Work Phone: Nucleated RBC/100 WBC (Bld) [Ratio] 0 % 0-5 [facility] Work Phone: MCHC Auto (RBC) [Mass/Vol]on 05-29-2022 MCHC (RBC) [Mass/Vol] 33.1 g/dL 32-36 [facility] Work Phone: No Panel Informationon 05-29 Estimated Creatinine Clearance Calc 99.56 ml/min [facility] Work Phone: Estimated GFR (MDRD) Amer 92 mL/min >60 [facility] Work Phone: Comment on above: GFR Calc Estimated GFR (MDRD) Non-Af Amer 76 mL/min >60 [facility] Work Phone: Comment on above: Non- GFR Calc Ethyl Alcohol Level < 3.0 mg/dL [facility] Work Phone: Comment on above: The serum:whole bloo d ethanol ratio is approximately 1.14and varies slightly with hematocrit. Medical Alcohol reference interval and critical value innon-tolerant individuals; 50 - 100 Impairment 100 Intoxication 100 - 250 Severe Poisoning 250 - 400 Deep/possible fatal coma MDMA (Ecstasy) Screen Negative < 500 ng/mL [facility] Work Phone: Urine Barbiturates Screen Negative < 200 ng/mL [facility] Work Phone: [phone] Urine Drug Screen Comment [facility] Work Phone: Comment on above: CONFIRMATORY TESTING [...] Urine Methadone Screen Negative < 300 ng/mL [facility] Work Phone: [phone] Platelets bldon 05-29-2022 Platelets (Bld) [#/Vol] 336 10*3/uL 150-450 [facility] Work Phone: [phone] Serum or plasma albumin mauro urement (mass/volume)on 05-29-2022 Albumin [Mass/Vol] 4.0 g/dL 3.2-5.0 [facility] Work Phone: [phone] Serum or plasma albumin/glob ulin mass ratioon 05-29-2022 Albumin/Globulin [Mass ratio] 1.1 {ratio} 0.9-2.4 [facility] Work Phone: [phone] Serum or plasma calcium mauro urement (mass/volume)on 05-29-2022 Calcium [Mass/Vol] 9.1 mg/dL 8.5-10.1 [facility] Work Phone: [phone] Serum or plasma creatinine m easurement (mass/volume)on 05-29-2022 Creatinine [Mass/Vol] 1.18 mg/dL 0.70-1.30 [facility] Work Phone: Comment on above: The validity of the calculated GFR & GFRAA in patients over 70 years has not been determined. Clinical correlation is essential. Serum or plasma urea nitroge n measurement (mass/volume)on 05-29-2022 Urea nitrogen [Mass/Vol] 14 mg/dL 7-18 [facility] Work Phone: [phone] Thin prep Papanicolaou smear with manual screeningon 05-29-2022 Thin prep Papanicolaou smear with manual screening 17 U/L 15-37 [facility] Work Phone: Thin prep Papanicolaou smear with manual screening 6 5-15 [facility] Work Phone: [phone] Urine phencyclidine (PCP) de tectionon 05-29-2022 Phencyclidine Ql (U) Negative < 25 ng/mL [facility] Work Phone: [phone] Absolute lymphocyte counton 01-30-2022 Lymphocytes Auto (Unsp spec) [#/Vol] 0.87 10*3/uL 0.83-4.51 [facility] Work Phone: Basophil percentageon 2021 Basophils/100 WBC (Bld) 0.2 % 0-1 [facility] Work Phone: [phone] Chloride [Moles/Vol] 106 mmol/L 98-107 [facility] Work Phone: [phone] Eosinophils/100 WBC (Bld) 0.1 % 0-5 [facility] Work Phone: [phone] Glucose [Mass/Vol] 109 mg/dL 74-106 [facility] Work Phone: [phone] Comment on above: Fasting Glucose resu lt from 100 to 125 mg/dL suggests IMPAIRED HOMEOSTASIS per A.D.A. criteria. Neutrophils (Bld) [#/Vol] 10.6 10*3/uL 2.0-7.7 [facility] Work Phone: [phone] Neutrophils/100 WBC (Bld) 89.3 % 47-70 [facility] Work Phone: [phone] Potassium [Moles/Vol] 3.6 mmol/L 3.5-5.1 [facility] Work Phone: Sodium [Moles/Vol] 137 mmol/L 136-145 [facility] Work Phone: WBC (Bld) [#/Vol] 11.8 10*3/uL 4.4-11.0 [facility] Work Phone: Blood erythrocytes count (nu mber/volume)on 01-30-2022 RBC (Bld) [#/Vol] 5.28 10*6/uL 4.6-6.2 [facility] Work Phone: Blood hemoglobin measurement (mass/volume)on 01-30-2022 Hemoglobin (Bld) [Mass/Vol] 15.7 g/dL 13.0-16. 5 [facility] Work Phone: Blood lymphocytes/100 leukoc yteson 01-30-2022 Lymphocytes/100 WBC (Bld) 7.3 % 19-41 [facility] Work Phone: Blood manual differential co mment interpretation (narrative result)on 01-30-2022 Manual differential comment Bebeto (Bld) [Interp] See comment [facility] Work Phone: Comment on above: AUTO DIFF OK Blood monocytes/100 leukocyt eson 01-30-2022 Monocytes/100 WBC (Bld) 2.7 % 0-10 [facility] Work Phone: Blood platelet mean volumeon 01-30-2022 Platelet mean volume (Bld) [Entitic vol] 9.9 fL 6.2-12.0 [facility] Work Phone: Determination of erythrocyte mean corpuscular volume (MCV)on 01-30-2022 MCV (RBC) [Entitic vol] 94.3 fL 80-94 [facility] Work Phone: Hematocrit Auto (Bld) [Volum e fraction]on 01-30-2022 Hematocrit (Bld) [Volume fraction] 49.8 % 40-54 [facility] Work Phone: Laboratory - Chemistry and C hemistry - challengeon 01-30-2022 CO2 [Moles/Vol] 20.0 mmol/L 21.0-32.0 [facility] Work Phone: Urea nitrogen/Creatinine [Mass ratio] 7.0 mg/mg 10-20 [facility] Work Phone: Laboratory - Hematology and Cell countson 01-30-2022 Erythrocyte distribution width (RBC) [Entitic vol] 42.8 fL 35.1-43.9 [facility] Work Phone: Erythrocyte distribution width (RBC) [Ratio] 12.4 % 11.6-14.6 [facility] Work Phone: Immature granulocytes/100 WBC (Bld) 0.400 % 0.0-0.9 [facility] Work Phone: Comment on above: IG% - Immature Granu locytes (promyelocytes, myelocytes and metamyelocytes) > 1% indicates that a LEFT SHIFT is Present. MCH (RBC) [Entitic mass] 29.7 pg 27.0-32.0 [facility] Work Phone: Nucleated RBC/100 WBC (Bld) [Ratio] 0 % 0-5 [facility] Work Phone: MCHC Auto (RBC) [Mass/Vol]on 01-30-2022 MCHC (RBC) [Mass/Vol] 31.5 g/dL 32-36 [facility] Work Phone: No Panel Informationon 01-30 Estimated Creatinine Clearance Calc 102.15 ml/min [facility] Work Phone: Estimated GFR (MDRD) Amer 95 mL/min >60 [facility] Work Phone: Comment on above: GFR Calc Estimated GFR (MDRD) Non-Af Amer 79 mL/min >60 [facility] Work Phone: Comment on above: Non- GFR Calc Platelets bldon 01-30-2022 Platelets (Bld) [#/Vol] 345 10*3/uL 150-450 [facility] Work Phone: Serum or plasma calcium mauro urement (mass/volume)on 01-30-2022 Calcium [Mass/Vol] 9.2 mg/dL 8.5-10.1 [facility] Work Phone: Serum or plasma creatinine m easurement (mass/volume)on 01-30-2022 Creatinine [Mass/Vol] 1.15 mg/dL 0.70-1.30 [facility] Work Phone: Comment on above: The validity of the calculated GFR & GFRAA in patients over 70 years has not been determined. Clinical correlation is essential. Serum or plasma urea nitroge n measurement (mass/volume)on 01-30-2022 Urea nitrogen [Mass/Vol] 8 mg/dL 7-18 [facility] Work Phone: Thin prep Papanicolaou smear with manual screeningon 01-30-2022 Thin prep Papanicolaou smear with manual screening 11 5-15 [facility] Work Phone: Absolute lymphocyte counton 12-31-2021 Lymphocytes Auto (Unsp spec) [#/Vol] 2.55 10*3/uL 0.83-4.51 [facility] Work Phone: Basophil percentageon 2021 Basophils/100 WBC (Bld) 0.1 % 0-1 [facility] Work Phone: Bilirubin [Mass/Vol] 0.90 mg/dL 0.20-1.00 [facility] Work Phone: Comment on above: For patients on eltr ombopag therapy, use of Dimension [place] TBIL is not recommended. Chloride [Moles/Vol] 100 mmol/L 98-107 [facility] Work Phone: Eosinophils/100 WBC (Bld) 0.0 % 0-5 [facility] Work Phone: Glucose [Mass/Vol] 137 mg/dL 74-106 [facility] Work Phone: Comment on above: Fasting Glucose resu lt greater than or equal to 126 mg/dL suggests DIABETES MELLITUS per A.D.A. criteria. Neutrophils (Bld) [#/Vol] 15.3 10*3/uL 2.0-7.7 [facility] Work Phone: Neutrophils/100 WBC (Bld) 77.9 % 47-70 [facility] Work Phone: Potassium [Moles/Vol] 3.1 mmol/L 3.5-5.1 [facility] Work Phone: Protein [Mass/Vol] 7.2 g/dL 6.4-8.2 [facility] Work Phone: Sodium [Moles/Vol] 139 mmol/L 136-145 [facility] Work Phone: WBC (Bld) [#/Vol] 19.7 10*3/uL 4.4-11.0 [facility] Work Phone: Blood erythrocytes count (nu mber/volume)on 12-31-2021 RBC (Bld) [#/Vol] 4.94 10*6/uL 4.6-6.2 [facility] Work Phone: Blood hemoglobin measurement (mass/volume)on 12-31-2021 Hemoglobin (Bld) [Mass/Vol] 14.9 g/dL 13.0-16. 5 [facility] Work Phone: Blood lymphocytes/100 leukoc yteson 12-31-2021 Lymphocytes/100 WBC (Bld) 13.0 % 19-41 [facility] Work Phone: Blood manual differential co mment interpretation (narrative result)on 12-31-2021 Manual differential comment Bebeto (Bld) [Interp] SCANNED [facility] Work Phone: Blood monocytes/100 leukocyt eson 12-31-2021 Monocytes/100 WBC (Bld) 8.6 % 0-10 [facility] Work Phone: Blood platelet adequacy dete ction by light microscopyon 12-31-2021 Platelets LM Ql (Bld) ADEQUATE ADEQ [facility] Work Phone: [phone] Blood platelet mean volumeon 12-31-2021 Platelet mean volume (Bld) [Entitic vol] 9.4 fL 6.2-12.0 [facility] Work Phone: [phone] Determination of erythrocyte mean corpuscular volume (MCV)on 12-31-2021 MCV (RBC) [Entitic vol] 90.1 fL 80-94 [facility] Work Phone: [phone] Hematocrit Auto (Bld) [Volum e fraction]on 12-31-2021 Hematocrit (Bld) [Volume fraction] 44.5 % 40-54 [facility] Work Phone: [phone] Laboratory - Chemistry and C hemistry - challengeon 12-31-2021 ALP [Catalytic activity/Vol] 103 U/L 45-117 [facility] Work Phone: [phone] ALT [Catalytic activity/Vol] 21 U/L 16-61 [facility] Work Phone: [phone] CO2 [Moles/Vol] 30.0 mmol/L 21.0-32.0 [facility] Work Phone: [phone] Globulin (S) [Mass/Vol] 3.1 g/dL 2.2-4.2 [facility] Work Phone: [phone] Urea nitrogen/Creatinine [Mass ratio] 7.6 mg/mg 10-20 [facility] Work Phone: [phone] Laboratory - Hematology and Cell countson 12-31-2021 Erythrocyte distribution width (RBC) [Entitic vol] 40.7 fL 35.1-43.9 [facility] Work Phone: [phone] Erythrocyte distribution width (RBC) [Ratio] 12.4 % 11.6-14.6 [facility] Work Phone: [phone] Immature granulocytes/100 WBC (Bld) 0.400 % 0.0-0.9 [facility] Work Phone: [phone] Comment on above: IG% - Immature Granu locytes (promyelocytes, myelocytes and metamyelocytes) > 1% indicates that a LEFT SHIFT is Present. MCH (RBC) [Entitic mass] 30.2 pg 27.0-32.0 [facility] Work Phone: Nucleated RBC/100 WBC (Bld) [Ratio] 0 % 0-5 [facility] Work Phone: MCHC Auto (RBC) [Mass/Vol]on 12-31-2021 MCHC (RBC) [Mass/Vol] 33.5 g/dL 32-36 [facility] Work Phone: No Panel Informationon 12-31 Estimated Creatinine Clearance Calc 89.68 ml/min [facility] Work Phone: Estimated GFR (MDRD) Amer 82 mL/min >60 [facility] Work Phone: Comment on above: GFR Calc Estimated GFR (MDRD) Non-Af Amer 68 mL/min >60 [facility] Work Phone: Comment on above: Non- GFR Calc Platelets bldon 12-31-2021 Platelets (Bld) [#/Vol] 374 10*3/uL 150-450 [facility] Work Phone: Review by pathologiston 12-04 Pathologist review Bebeto (Unsp spec) [Interp] Lu bridges [facility] Work Phone: Pathologist review Bebeto (Unsp spec) [Interp] Reviewed [facility] Work Phone: Comment on above: Previous reported re sult: Lu yuliana Edited by: RGOPAIGE on 01/01/22:1152Neutrophilic leukocytosis.Clinical correlation suggested.Sb Varma D.O. 01/01/22 AMENDED REPORT 01/01/22 1152 PATH REV previously reported as: Lu bridges Serum or plasma albumin mauro urement (mass/volume)on 12-31-2021 Albumin [Mass/Vol] 4.1 g/dL 3.2-5.0 [facility] Work Phone: Serum or plasma albumin/glob ulin mass ratioon 12-31-2021 Albumin/Globulin [Mass ratio] 1.3 {ratio} 0.9-2.4 [facility] Work Phone: Serum or plasma calcium mauro urement (mass/volume)on 12-31-2021 Calcium [Mass/Vol] 8.8 mg/dL 8.5-10.1 [facility] Work Phone: Serum or plasma creatinine m easurement (mass/volume)on 12-31-2021 Creatinine [Mass/Vol] 1.31 mg/dL 0.70-1.30 [facility] Work Phone: Comment on above: The validity of the calculated GFR & GFRAA in patients over 70 years has not been determined. Clinical correlation is essential. Serum or plasma urea nitroge n measurement (mass/volume)on 12-31-2021 Urea nitrogen [Mass/Vol] 10 mg/dL 7-18 [facility] Work Phone: Thin prep Papanicolaou smear with manual screeningon 12-31-2021 Thin prep Papanicolaou smear with manual screening 12 U/L 15-37 [facility] Work Phone: Thin prep Papanicolaou smear with manual screening 9 5-15 [facility] Work Phone: No Panel Informationon 12-27 Enteric Bacteriology [facility] Work Phone: Gram stain for investigation of transfusion reactionon 12-17-2021 Microscopic observation Gram stain Nom (Unsp spec) [facility] Work Phone: No Panel Informationon 12-17 Nasopharyngeal Culture Pseudomonas aeroginosa [facility] Work Phone: TSCon 06-04-2018 [facility] OF [place]ICE: 06/04/2018Patient is a 27-year-old [...] appearance, afebrile, and appropriate for outpatientmanagement._ Abraham Aguilar [facility]/[id number]: 06/04/2018 10:57 [facility] PATIENT NAME: AIMEE DUCKWORTH [id number] Radha Trinh MEDICAL REC #: [id number], [place] [address] STATCARE REPORT STATCARE PHYSICIANDT: 06/05/2018 09:29SSI File#: [id number] #: [id number]/Reviewe d by06/05/18 Lolis8 ANGEL [facility] PATIENT NAME: AIMEE DUCKWORTH [id number] [facility] REC #: [id number], [place] [address] STATCARE REPORT [facility] PHYSICIAN [facility] STAT[facility]ARE REPORT [facility] Herman Gaston 07-17-2017 GI -- ----Patient: AIMEE DUCKWORTH ----SPECIMEN: [id number] Collection Date: 07/17/17 Received: 07/22/17 Status: ERIC Nesbitt Dr.: Ashtyn Moreira MD Ph# Othr. : Hailey Jarquin NP Material for Examination: A ESOPHAGEAL BX @ 39 CM, R/O PONCE'S PRE-OP DIAGNOSIS: ULCER OF ESOPHAGUS POST-OP DIAGNOSIS: NONE GIVEN SURGICAL PROCEDURE: NONE GIVEN SPECIMEN COMMENTS: RECEIVED FROM [facility], [address] [place] [address] 2 Jan SLIDES LABELED [id number] AIMEE DUCKWORTH L1,[id number] A. Esophagus, at 39 cm; multiple biopsies: [...] Phonetic and/or minor grammatical errors may exist. [facility] NAME: AIMEE DUCKWORTH Pathology and Laboratory Medicine UNIT#: [id number] LOC: [facility] Medical Record Technician: Rula Ryan M.D. ROOM/BED: [place] : 89 AGE/SEX: 26/M ORD.Ashtyn Mitchell MD END OF REPORT Normal [facility] Gram stain for investigation of transfusion reaction Microscopic observation Gram stain Nom (Unsp spec) [facility] Work Phone: No Panel Information Nasopharyngeal Culture Pseudomonas aeroginosa [facility] Work Phone: Vital Signs Date Time Vital Sign Value Performing Clinician Faci lity 04-21-2025 03:26-0400 Body temperature 99 [degF] Dr. Kamron Erickson MD Work Phone: [facility] 04-21-2025 03:26-0400 Diastolic blood pressure 97 mm[Hg] Dr. Kamron Erickson MD Work Phone: 6(962)126-027083 [place] [address] 04-21-2025 03:26-0400 Heart rate 102 /min Dr. Kamron Erickson MD Work Phone: 8(525)583-921010 [place] [address] 04-21-2025 03:26-0400 Respiratory rate 16 /min Dr. Kamron Erickson MD Work Phone: 4(822)773-120810 [place] [address] 04-21-2025 03:26-0400 SaO2% (BldA) [Mass fraction] 97 % Dr. Kamron Erickson MD Work Phone: 8(963)728-278510 [place] [address] 04-21-2025 03:26-0400 Systolic blood pressure 145 mm[Hg] Dr. Kamron Erickson MD Work Phone: 1(388)236-206310 [place] [address] 04-21-2025 02:04-0400 Body height 182.[address] Kamron Erickson MD Work Phone: 4(362)633-551110 [place] [address] 04-21-2025 02:04-0400 Body mass index (BMI) [Ratio] 35.6 kg/m2 Dr. Kamron Erickson MD Work Phone: 4(823)420-412810 [place] [address] 04-21-2025 02:04-0400 Body weight 119.[address] Kamron Erickson MD Work Phone: 6(486)426-262410 [place] [address] 11-03-2024 23:54-0400 Heart rate 68 /min Dr. Kamron Erickson MD Work Phone: 4(544)680-301183 [place] [address] 11-03-2024 23:54-0400 Respiratory rate 18 /min Dr. Kamron Erickson MD Work Phone: 1(972)830-289783 [place] [address] 11-03-2024 23:54-0400 SaO2% (BldA) [Mass fraction] 94 % Dr. Kamron Erickson MD Work Phone: 2(113)918-904683 [place] [address] 11-03-2024 21:30-0400 Body temperature 97.7 [degF] Dr. Kamron Erickson MD Work Phone: 2(881)988-957583 [place] [address] 11-03-2024 21:30-0400 Diastolic blood pressure 91 mm[Hg] Dr. Kamron Erickson MD Work Phone: 9(771)321-970010 [place] [address] 11-03-2024 21:30-0400 Systolic blood pressure 109 mm[Hg] Dr. Kamron Erickson MD Work Phone: 0(618)738-730210 [place] [address] 11-03-2024 09:24-0400 Body height 182.[address] Kamron Erickson MD Work Phone: 5(451)514-342310 [place] [address] 11-03-2024 09:24-0400 Body weight 131.[address] Kamron Erickson MD Work Phone: 3(286)027-238310 [place] [address] 11-03-2024 07:00-0400 Inhaled oxygen flow rate 2 L/min Dr. Kamron Erickson MD Work Phone: 7(806)117-091110 [place] [address] 11-03-2024 06:00-0400 Body mass index (BMI) [Ratio] 39.1 kg/m2 Dr. Kamron Erickson MD Work Phone: 3(883)320-504710 [place] [address] 11-02-2024 13:38-0400 Body temperature 97.7 [degF] Dr. Kamron Erickson MD Work Phone: 0(929)135-884710 [place] [address] 11-02-2024 13:38-0400 Diastolic blood pressure 78 mm[Hg] Dr. Kamron Erickson MD Work Phone: 0(406)176-718310 [place] [address] 11-02-2024 13:38-0400 Heart rate 87 /min Dr. Kamron Erickson MD Work Phone: 9(668)631-283910 [place] [address] 11-02-2024 13:38-0400 Respiratory rate 16 /min Dr. Kamron Erickson MD Work Phone: 5(030)040-993010 [place] [address] 11-02-2024 13:38-0400 SaO2% (BldA) [Mass fraction] 98 % Dr. Kamron Erickson MD Work Phone: 2(756)267-599710 [place] [address] 11-02-2024 13:38-0400 Systolic blood pressure 107 mm[Hg] Dr. Kamron Erickson MD Work Phone: 4(354)273-943810 [place] [address] 11-02-2024 11:24-0400 Body height 182.[address] Kamron Erickson MD Work Phone: 8(739)695-964510 [place] [address] 11-02-2024 11:24-0400 Body mass index (BMI) [Ratio] 39.2 kg/m2 Dr. Kamron Erickson MD Work Phone: 7(929)841-168610 [place] [address] 11-02-2024 11:24-0400 Body weight [address] Kamron Erickson MD Work Phone: 3(584)201-256810 [place] [address] 08-04-2024 08:51-0500 Body temperature 97.9 [degF] Dr. Kamron Erickson MD Work Phone: 1(591)338-942910 [place] [address] 08-04-2024 08:51-0500 Diastolic blood pressure 81 mm[Hg] Dr. Kamron Erickson MD Work Phone: 7(811)243-588710 [place] [address] 08-04-2024 08:51-0500 Heart rate 74 /min Dr. Kamron Erickson MD Work Phone: 4(803)834-988010 [place] [address] 08-04-2024 08:51-0500 Respiratory rate 16 /min Dr. Kamron Erickson MD Work Phone: 3(664)957-457410 [place] [address] 08-04-2024 08:51-0500 SaO2% (BldA) [Mass fraction] 97 % Dr. Kamron Erickson MD Work Phone: 8(615)951-650310 [place] [address] 08-04-2024 08:51-0500 Systolic blood pressure 124 mm[Hg] Dr. Kamron Erickson MD Work Phone: 9(386)919-090310 [place] [address] 08-03-2024 12:44-0500 Body mass index (BMI) [Ratio] 34.2 kg/m2 Dr. Kamron Erickson MD Work Phone: 4(889)075-911510 [place] [address] 08-03-2024 12:44-0500 Body weight 114.[address] Kamron Erickson MD Work Phone: 4(360)267-602510 [place] [address] 04-13-2023 07:01-0400 Diastolic blood pressure 59 mm[Hg] [facility] 04-13-2023 07:01-0400 Heart rate 66 /min [facility] 04-13-2023 07:01-0400 Respiratory rate 15 /min [facility] 04-13-2023 07:01-0400 SaO2% (BldA) [Mass fraction] 100 % [facility] 04-13-2023 07:01-0400 Systolic blood pressure 104 mm[Hg] [facility] 04-13-2023 04:07-0400 Body height 182.88 cm [facility] 04-13-2023 04:07-0400 Body mass index (BMI) [Ratio] 36.1 kg/m2 [facility] 04-13-2023 04:07-0400 Body temperature 97.6 [degF] [facility] 04-13-2023 04:07-0400 Body weight 121 kg [facility] 05-30-2022 08:38-0400 Diastolic blood pressure 81 mm[Hg] [facility] Work Phone: 05-30-2022 08:38-0400 Heart rate 90 /min [facility] Work Phone: 05-30-2022 08:38-0400 Respiratory rate 15 /min [facility] Work Phone: 05-30-2022 08:38-0400 SaO2% (BldA) [Mass fraction] 100 % [facility] Work Phone: 05-30-2022 08:38-0400 Systolic blood pressure 138 mm[Hg] [facility] Work Phone: 05-30-2022 06:18-0400 Body temperature 97.9 [degF] [facility] Work Phone: 05-29-2022 20:56-0400 Body height 182.88 cm [facility] Work Phone: 05-29-2022 20:56-0400 Body mass index (BMI) [Ratio] 33 kg/m2 [facility] Work Phone: 05-29-2022 20:56-0400 Body weight 110.6 kg [facility] Work Phone: 01-30-2022 14:47-0400 Body height 182.88 cm [facility] Work Phone: 01-30-2022 14:47-0400 Body mass index (BMI) [Ratio] 32.4 kg/m2 [facility] Work Phone: 01-30-2022 14:47-0400 Body temperature 97 [degF] [facility] Work Phone: 01-30-2022 14:47-0400 Body weight 108.47 kg [facility] Work Phone: 01-30-2022 14:47-0400 Diastolic blood pressure 102 mm[Hg] [facility] Work Phone: 01-30-2022 14:47-0400 Heart rate 124 /min [facility] Work Phone: 01-30-2022 14:47-0400 Respiratory rate 16 /min [facility] Work Phone: 01-30-2022 14:47-0400 SaO2% (BldA) [Mass fraction] 98 % [facility] Work Phone: 01-30-2022 14:47-0400 Systolic blood pressure 130 mm[Hg] [facility] Work Phone: 12-31-2021 04:11-0400 Diastolic blood pressure 90 mm[Hg] [facility] Work Phone: 12-31-2021 04:11-0400 Heart rate 82 /min [facility] Work Phone: 12-31-2021 04:11-0400 Respiratory rate 20 /min [facility] Work Phone: 12-31-2021 04:11-0400 SaO2% (BldA) [Mass fraction] 94 % [facility] Work Phone: 12-31-2021 04:11-0400 Systolic blood pressure 137 mm[Hg] [facility] Work Phone: 12-31-2021 01:56-0400 Body height 182.88 cm [facility] Work Phone: 12-31-2021 01:56-0400 Body mass index (BMI) [Ratio] 34 kg/m2 [facility] Work Phone: 12-31-2021 01:56-0400 Body temperature 98.9 [degF] [facility] Work Phone: 12-31-2021 01:560400 Body weight 113.7 kg [facility] Work Phone: Encounters Encounter Date Encounter Type Care Provider Facility Start: 04-21-2025 End: 04-21-2025 Emergency department patient visit Dr. Kamron Erickson MD Work Phone: -Emergency Department Work Phone: Start: 11-03-2024 Non-patient / Non-visit Dr. Román martinez MD -[facility] Work Phone: Start: 11-02-2024 Non-patient / Non-visit Dr. Román martinez MD -[facility] Work Phone: Start: 11-02-2024 ambulatory Román Sandoval Facility:[facility] Start: 11-02-2024 End: 11-04-2024 Evaluation and management of inpatient Dr. Román Sandoval MD -Intensive Care Unit Work Phone: Start: 08-03-2024 End: 08-04-2024 Emergency department patient visit Dr. Rodriguez Beavers DO -Emergency Department Work Phone: Start: 06-02-2024 End: 06-02-2024 Emergency department patient visit Diomedes York Facility:[facility] Start: 04-25-2024 End: 04-26-2024 Emergency department patient visit Tramaine Tovar Facility:[facility] Start: 03-26-2024 End: 03-27-2024 Emergency department patient visit Gumaro Mccanndustin Facility:[facility] Start: 02-03-2024 End: 02-03-2024 ambulatory Kamron Erickson Facility:[facility] Start: 01-08-2024 End: 01-08-2024 Emergency department patient visit Gustavoharpal Garcia Facility:[facility] Start: 05-06-2023 End: 05-07-2023 Emergency department patient visit VIDAL BAEZ [facility] Start: 04-13-2023 End: 04-13-2023 Emergency department patient visit [facility]Emergency [facility] Work Phone: Start: 05-29-2022 End: 05-30-2022 Emergency department patient visit [facility] Start: 01-30-2022 End: 01-30-2022 Emergency department patient visit [facility]Emergency [facility] Start: 12-31-2021 End: 12-31-2021 Emergency department patient visit [facility]Emergency Department Start: 12-27-2021 End: 12-27-2021 Patient encounter procedure [facility]Laboratory, Specimen Start: 12-17-2021 End: 12-17-2021 Patient encounter procedure [facility] Start: 06-04-2018 Patient encounter procedure Abraham Aguilar Facility:[facility] Start: 07-17-2017 Patient encounter procedure Ashtyn Moreira Facility:[facility] Procedures Date Procedure Procedure Detail Performing Clinician Start: 04-21-[address] Kamron Erickson MD Work Phone: Start: 04-21-2025 Ct abdomen & pelvis w/contrast material Dr. Kamron Erickson MD Work Phone: Start: 08-03-2024 CT of head without contrast [...] Treatment Date Care Activity Detail Author Start: 04-21-2025 [facility] Start: 11-03-2024 Care planning and problem solving actions [facility] Start: 11-03-2024 Electrocardiographic procedure [facility] Start: 11-03-2024 Serum inorganic phosphate measurement [facility] Start: 11-03-2024 Patient discharge [facility] Start: 11-02-2024 Suicide precautions [facility] Start: 11-02-2024 Following clinical pathway protocol [facility] Start: 11-02-2024 Ambulation without limitation [facility] Start: 11-02-2024 Assessment of risk of venous thromboembolism [facility] Start: 11-02-2024 Continuous pulse oximetry [facility] Start: 11-02-2024 Inhalation therapy procedure [facility] Start: 11-02-2024 Insertion of catheter into peripheral vein [facility] Start: 11-02-2024 Measuring intake and output [facility] Start: 11-02-2024 Oxygen therapy [facility] Start: 11-02-2024 Providing care according to standard [facility] Start: 11-02-2024 Vital signs measurements [facility] Start: 11-02-2024 [facility] Start: 11-02-2024 Verification routine [facility] Start: 11-02-2024 Admission procedure [facility] Start: 11-02-2024 Seizure precautions [facility] Start: 11-02-2024 Referral to service [facility] Start: 11-02-2024 End: 11-02-2024 Suicide precautions [facility] Start: 11-02-2024 Consultation [facility] Start: 08-03-2024 [facility] Start: 08-03-2024 Suicide precautions [facility] Start: 01-30-2022 Plain chest X-ray Chest 1 View (Portable) [facility] Work Phone: Start: 01-30-2022 XR Chest Single view [facility] Work Phone: Start: 01-30-2022 End: 01-30-2022 [facility] Work Phone: Start: 12-27-2021 Ova and Parasites Ova and Parasites [facility] Work Phone: Start: 12-17-2021 Nasopharyngeal Culture Nasopharyngeal Culture [facility] Work Phone: Alanine aminotransfe rase [Enzymatic activity/volume] in Serum or Plasma [facility] Albumin [Mass/volume ] in Serum or Plasma [facility] Alkaline phosphatase [Enzymatic activity/volume] in Serum or Plasma [facility] Amphetamines [Presen ce] in Urine by Screen method >1000 ng/mL [facility] Anion gap in Serum or Plasma [facility] Benzodiazepine measu rement, urine [facility] Bilirubin, total measurement [facility] BUN/Creatinine ratio [facility] Calcium [Mass/volume ] in Serum or Plasma [facility] Carbon dioxide, tota l [Moles/volume] in Central venous blood [facility] Cocaine measurement, urine [facility] Creatinine [Mass/vol ume] in Serum or Plasma [facility] Erythrocyte mean cor puscular volume determination [facility] fentaNYL [Presence] in Urine by Screen method [facility] Glucose [Mass/volume ] in Serum or Plasma [facility] Hematocrit [Volume F raction] of Blood [facility] Hemoglobin [Mass/vol ume] in Blood [facility] Leukocytes [#/volume] in Blood [facility] Magnesium measurement [facility] Mean corpuscular hem oglobin concentration determination [facility] Mean corpuscular hem oglobin determination [facility] Measurement of renal function [facility] Methadone measurement, urine [facility] Neutrophil count [facility] Neutrophil percent differential count [facility] Patient Education [facility] Work Phone: Patient referral [facility] Work Phone: Phencyclidine [Prese nce] in Urine [facility] Platelets [#/volume] in Blood [facility] Potassium measurement [facility] Red blood cell count [facility] Red cell distributio n width determination [facility] Serum chloride measurement [facility] Sodium measurement [facility] Total protein measurement [facility] Urea nitrogen [Mass/ volume] in Serum or Plasma [facility] Urine cannabinoid measurement [facility] Urine opiate measurement [facility] Payers Date Payer Category Payer Self-pay [id number] 2020 Medicaid [id number] 2020 Medicare [id number] 2016 Unknown [id number] 2007 Unknown [id number] 1990 Unknown [id number] 2.16. [id number] Unknown [id number] 2.16.8 [id number] Unknown [id number] 2.16.8 [id number] Unknown [id number] 2.16.8 [id number] Unknown [id number] 2.16.8 [id number] Unknown [id number] 2.16.8 [id number] Unknown [id number] 2.16.8 [id number] Unknown [id number] 2.16.8 [id number] Unknown [id number] 2.16.8 [id number] Unknown [id number] 2.16.8 [id number] Unknown [id number] 2.16.8 [id number] Unknown [id number] 2.16.8 [id number] Unknown [id number] 2.16.8 [id number] Social History Date Type Detail Facility Start: 12-04-2018 End: 04-13-2023 Tobacco smoking status NHIS Unknown if ever smoked [facility] Start: 1990 Sex Assigned At Male [facility] Start: 11-02-2024 End: 04-21-2025 Tobacco smoking status NHIS Smokes tobacco daily (finding) [facility] Start: 11-02-2024 End: 11-04-2024 Sex Male (finding) [facility] Sex Male [facility] Goals Date Patient Goal Desired Activity /State Functional Status Date Assessment Result Facility 11-03-2024 Functional status Ambulates;Bedside Commo de [facility] Work Phone: Mental Status Date Assessment Result Facility 11-03-2024 Cognitive function Voice/Name [facility] Work Phone: Clinical Notes 04-13-2023 to 04-21-2025 Note Date & Type Note Facility 04-21-2025 Discharge summary [facility] 04-21-2025 Radiology Diagnostic study note [facility] Imaging Services [address] [place], [place] [address] Abdomen/Pelvis W IV Cont ONLY MR#: [id number] Acct: [id number] Name: AIMEE DUCKWORTH Rep #: [id number] : 1990 M 34 From: Blessing Weir MD PCP: Dr. Kamron Erickson MD Status: REG ER Study:Abdomen/Pelvis W IV Cont ONLY Date of E xam: 04/21/25 Exam# [id number] Ordering Dr: Violet York DO PROCEDURE: ABDOMEN/PELVIS W IV CONT ONLY 04/21/2025 REASON FOR EXAM: ABD PAIN TECHNIQUE: Procedure Code: [id number] Modality: CT Procedure: ABDOMEN/PELVIS W IV CONT ONLY Coronal and Sagittal reconstruction series were provided. CONTRAST: OMNIPAQUE 350 VOLUME: 100 mL One or more dose reduction techniques were used (e.g., Automated exposure control, adjustment of the mA and/or kV according to patient size, use of iterative reconstruction technique. RADIATION DOSE SUMMARY: CTDlvol: 24.11 mGy DLP: 1411 mGycm COMPARISON: CT SCAN ON 04/13/2023. FINDINGS: Mild hepatic steatosis. Diffuse thickening of the stomach suggestive of gastritis. Mild multifocal thickening of the small bowels, probably enteritis. Mild multifocal thickening of the colon, probably colitis. No evidence of perforation or pneumatosis coli. Mild diffuse spondylosis. Fat containing umbilical hernia without incarceration. The visualized lung bases are unremarkable. Normal gallbladder and extrahepatic biliary system. Normal spleen. Normal pancreas. Normal bilateral adrenal glands. Normal size of the right kidney. There is no right renal mass. There are no right renal calculi. There is no right hydronephrosis. Normal visualized right ureter. Normal size of the left kidney. There is no left renal mass. There are no leftrenal calculi. There is no left hydronephrosis. Normal visualized left ureter. The appendix is visualized and appears normal. There is no demonstrated peritoneal fluid. Normal abdominal aorta. Normal inferior vena cava. Normal retroperitoneum. Normal urinary bladder. There is no pelvic mass lesion or lymphadenopathy. There is no pelvic fluid. CT/Abdomen/Pelvis W IV Cont ONLY IMPRESSION: Mild hepatic steatosis. Diffuse thickening of the stomach suggestive of gastritis. Mild multifocal thickening of the small bowels, probably enteritis. Mild multifocal thickening of the colon, probably colitis. No evidence of perforation or pneumatosis coli. Mild diffuse spondylosis. Reading Location: [place] [address] CC: Dr. 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 This is a viral stomach infection that will last anywhere from 1 to 10 days with the average being 3 days. Please keep yourself well-hydrated and take the prescribed medication as directed to help control symptoms. Return to the ER should you have any further concerns [facility] Work Phone: 11-04-2024 Note [facility] Medical Records Department [address] [place] [address] Discharge Summary 11/04/24 0829 MR#: [id number] Acct: [id number] Name: DONITAAIMEEMeghan LINTON Rep #: [id number] : 1990 34 From: Román Sandoval MD PCP: Dr. Kamron Erickson MD Status:DIS IN Location: [facility] HS468-6 Providers Date of Admission: 11/02/24 Date of [...] 234 mg IM (more content not included)... [facility] 11-03-2024 Progress note Note Date/Time November 03, 2024 8:00am [facility] Medical Records Department [address] [place] [address] Progress Note - Hospitalist 11/03/24 0715 MR#: [id number] Acct: [id number] Name: AIMEE DUCKWORTH Rep #:[id number] : 1990 34 From: Román Sandoval MD PCP: Dr. Kamron Erickson MD Status:ADM IN [facility] Reason for Visit Reason for Visit: Diagnoses [...] % (Auto) 54.1, Lymph % (Auto) 24.9, Burnett % (Auto) 18.0 H, Eos % (Auto) [...] % (Auto) 63.5, Lymph % (Auto) 19.2, Burnett % (Auto) 16.0 H, Eos % (Auto) [...] Minutes A Charges/Coding Visit Charges Inpatient E&M: 65764 Subs Hosp L2 11/03/24 0800 <Electronically signed by Román Sandoval MD> Cosigner Signature (if applicable): CC: ~ Signed [facility] Work Phone: 1(185) 657-509804-02-2025 Progress note [facility] Medical Records Department [address] [place] [address] Progress Note - Hospitalist 11/03/24714 MR#: [id number] Acct: [id number] Name: AIMEE DUCKWORTH Rep #:[id number] : 1990 34 From: Román Sandoval MD PCP: Dr. Kamron Erickson MD Status:ADM [facility] Reason for Visit Reason for Visit: Diagnoses [...] 1000 Lab / Micro Data 11/03/24 03:30 04/02/25 03:30 Labs: Laboratory Results - last 24 hr 11/02/24 11:35: WBC 9.2, RBC 4.34 L, Hgb 13.6, Hct 40.5, MCV 93.3, MCH 31.3, MCHC 33.6, RDW Std Deviation 46.1 H, RDW Coeff of Rohith 13.5, Plt Count 197, MPV 9.5, Immature Gran % (Auto) 0.400, Neut % (Auto) 54.1, Lymph % (Auto) 24.9, Burnett % (Auto) 18.0 H, Eos % (Auto) [...] % (Auto) 63.5, Lymph % (Auto) 19.2, Burnett % (Auto) 16.0 H, Eos % (Auto) [...] Minutes A Charges/Coding Visit Charges Inpatient E&M: 37921 Subs Hosp L2 11/03/24 0800 Cosigner Signature (if applicable): CC: ~ Signed [facility]04-01-2025 History and physical note Author Román Sandoval [facility] Note Date/Time November 02, 2024 1:11 pm [facility] Medical Records Department [address] [place] [address] H&P Exam - Hospitalist 11/02/24 1306 MR#: [id number] Acct: [id number] Name: AIMEE DUCKWORTH Rep #:[id number] : [...] % (Auto) 54.1, Lymph % (Auto) 24.9, Burnett% (Auto) 18.0 H, Eos % (Auto) 2.1, [...] Multi Select Codes Visit Charges Visit Charges: 07094 Init Hosp L3 Hospitalists' Procedures Procedures: 79353 Advncd Care Plan 30 Min 11/02/24 1311 <Electronically signed by Román Sandoval MD> Cosigner Signature (if applicable): CC: Dr. Román Sandoval MD; Dr. Kamron Erickson MD~ Signed [facility] Work Phone: 1(399) 598-791004-01-2025 Discharge summary Author Tramaine [facility] Note Date/Time November 02, 2024 12:5 7pm [facility] Medical Records Department [address] [place] [address] Emergency Department Summary 11/02/24 MR#: [id number] Acct: [id number] Name: AIMEE DUCKWORTH Rep #:[id number] : 1990 34 From: Tramaine Tovar MD PCP: Dr. Kamron Erickson MD Status:REG ER Location: ED HPI History of Present Illness Chief Complaint: Overdose Detail of Chief Complaint: Suicide attempt, took 6450 mg trazodone tablets 30 to45 minutes [employer] Informant: patient Onset/Context/Timing Onset: Hours Context: Sudden [...] his life. Patient has attempted suicide in [facility]. Patient has been hospitalized for suicidal ideation/attempt. [...] % (Auto) 54.1 Lymph % (Auto) 24.9 Burnett % (Auto) 18.0 H Eos % (Auto) [...] which may be due to the trazodone. FL interval is under 58 ms. Cures duration 110 ms. QT duration 458 ms. [place] is normal.) Management Discussion w/another healthcare provider: Hospitalist (Hospitalist was paged at 1252 for admission. Case was discussed with Dr. Serrato who accepted patient. 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 Call [facility] ([phone]) or report to the closest Emergency Room. Call 911 if necessary. 11/02/24 1257 <Electronically signed by Tramaine Tovar MD> Cosigner Signature (if applicable): CC: Dr. Kamron Erickson MD ~ Signed [facility] Work Phone: 1(876) 455-587404-01-2025 Evaluation note* Diagnosis Onset Date Resolution Status Admit Date Intentional overdose of trazodone acute November 02, 2024 12:55pm Prolonged QT interval acute Nov 12:55pm [facility] Work Phone: 1(939) 793-798904-01-2025 History and physical note [facility] Medical Records Department [address] [place] [address] H&P Exam - Hospitalist 11/02/24 1306 MR#: [id number] Acct: [id number] Name: AIMEE DUCKWORTH Rep #:[id number] : [...] % (Auto) 54.1, Lymph % (Auto) 24.9, Burnett% (Auto) 18.0 H, Eos % (Auto) 2.1, [...] Multi Select Codes Visit Charges Visit Charges: 43092 Init Hosp L3 Hospitalists' Procedures Procedures: 55649 Advncd Care Plan 30 Min 11/02/24 1311 Cosigner Signature (if applicable): CC: Dr. Román Sandoval MD; Dr. Kamron Erickson MD~ Signed [facility]04-01-2025 Discharge summary [facility] Medical Records Department [address] [place] [address] Emergency Department Summary 11/02/24 MR#: [id number] Acct: [id number] Name: AIMEE DUCKWORTH Rep #:[id number] : 1990 34 From: Tramaine Tovar MD PCP: Dr. Kamron Erickson MD Status:REG ER Location: ED HPI History of Present Illness Chief Complaint: Overdose Detail of Chief Complaint: Suicide attempt, took 6450 mg trazodone tablets 30 to45 minutes [employer] Informant: patient Onset/Context/Timing Onset: Hours Context: Sudden [...] his life. Patient has attempted suicide in [facility]. Patient has been hospitalized forsuicidal ideation/attempt. Patient [...] % (Auto) 54.1 Lymph % (Auto) 24.9 Burnett % (Auto) 18.0 H Eos % (Auto) [...] which may be due to the trazodone. FL interval is under 58 ms. Cures duration 110 ms. QT duration 458 ms. [place] is normal.) Management Discussion w/another healthcare provider: Hospitalist (Hospitalist was paged at 1252 for admission.Case was discussed with Dr. Serrato who accepted patient. 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 Call [facility] ([phone]) or report tothe closest Emergency Room. Call 911 if necessary. 11/02/24 1257 Cosigner Signature (if applicable): CC: Dr. Kamron Erickson MD ~ Signed [facility]09-10-2023 Discharge summary Author Gustavo Garcia [facility] April 13, 2023 7:22am Note Date/Time April 13, 2023 4:18am [facility] Medical Records Department [address] [place] [address] Emergency Department Summary 04/13/23 MR#: [id number] Acct: [id number] Name: AIMEE DUCKWORTH Rep #:[id number] : [...] episode. He is on any blood thinners. [facility] Medical History Asthma Migraines Home Medications escitalopram [...] 82.3 H Lymph % (Auto) 11.2 L Burnett % (Auto) 4.5 Eos % (Auto) 1.3 [...] 7:15 EDT Reading Location ID and State: [facility] / [place] , Service support , Discharge Plan Triage [...] problems, contact your Primary Care Provider. Call [employer] [facility] ([phone]) or report to the closest Emergency Room. Call 911 if necessary. 04/13/23 0722 <Electronically signed by Gustavo Garcia DO> Cosigner Signature (if applicable): CC: Dr. Kamron Erickson MD ~ Signed [facility] Work Phone: Discharge summary Author Tramaine Tovar [facility] Note Date/Time November 02, 2024 12:5 7pm [facility] Medical Records Department [address] [place] [address] Emergency Department Summary 11/02/24 MR#: [id number] Acct: [id number] Name: AIMEE DUCKWORTH Rep #:[id number] : 1990 34 From: Tramaine Tovar MD PCP: Dr. Kamron Erickson MD Status:REG ER Location: ED HPI History of Present Illness Chief Complaint: Overdose Detail of Chief Complaint: Suicide attempt, took 6450 mg trazodone tablets 30 to45 minutes [employer] Informant: patient Onset/Context/Timing Onset: Hours Context: Sudden [...] his life. Patient has attempted suicide in [facility]. Patient has been hospitalized for suicidal ideation/attempt. [...] % (Auto) 54.1 Lymph % (Auto) 24.9 Burnett % (Auto) 18.0 H Eos % (Auto) [...] which may be due to the trazodone. FL interval is under 58 ms. Cures duration 110 ms. QT duration 458 ms. [place] is normal.) Management Discussion w/another healthcare provider: Hospitalist (Hospitalist was paged at 1252 for admission. Case was discussed with Dr. Serrato who accepted patient. 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 Call [facility] ([phone]) or report to the closest Emergency Room. Call 911 if necessary. 11/02/24 1257 <Electronically signed by Tramaine Tovar MD> Cosigner Signature (if applicable): CC: Dr. Kamron Erickson MD ~ Signed [facility] Work Phone: Discharge summary Author Diomedes York [facility] Note Date/Time April 21, 2025 3:29am [facility] Medical Records Department [address] [place] [address] Emergency Department Summary 04/21/25 MR#: [id number] Acct: [id number] Name: AIMEE DUCKWORTH Rep #:[id number] : 1990 34 From: Diomedes York DO PCP: Dr. Kamron Erickson MD Status:REG ER Location: ED HPI History of Present Illness Chief Complaint: Nausea/Vomiting Informant: patient and parent Narrative Narrative: Patient is a 34 year old male with past medical history of anxiety depression and schizophrenia. He states that over the last 24 to 36 hours he has had 10-15bouts of nausea and vomiting with loose stool/diarrhea. He denies any known sick contacts. He states there is been no blood or discoloration to the emesis or stool. He denies any recent antibiotic use or travel outside the country. He states that he cannot hold any type of food or fluid down and he is having worsening abdominal pain as his symptoms continue and secondary to this he presents for evaluation. [facility] Medical History Spinal stenosis Schizophrenia Depression Anxiety Smoker Schizophrenia Migraines Asthma Home Medications ?Medication ?Instructions ?Recorded ?Last Taken [...] mg PO QHS 11/02/24 Unknow n History diclofenac sodium 75 mg 75 mg PO BID 04/21/25 Unknow n History tablet,delayed release haloperidol 5 mg tablet 5 mg PO BID 04/21/25 Unknown History hydroxyzine HCl 50 mg tablet 50 mg PO TID 04/21/25 Unk nown History oxycodone-acetaminophen 5 mg-325 1 tab PO Q6H PRN pain 3 days #12 04/21/25 Unknown Rx mg tablet (Percocet) tabs prochlorperazine maleate 10 mg 10 mg PO TID PRN nausea and 04/21/25 Unknown Rx tablet (Compazine) vomiting 7 days #21 tabs Allergy/AdvReac Type Severity Reaction Status Date / Time Sulfa (Sulfonamide Allergy Unknown Verified 04/21/25 02:06 Antibiotics) sulfisoxazole (From Allergy Hives Verified 04/21/25 02:06 Gantrisin) Social History (System 06/10/24 @ 07:12 by Fernanda Roblero) household members: family Smoking Status: Current every day smoker tobacco type: cigarettes and e- cigarettes ROS ROS ED Constitutional Constitutional ED: Reports chills, fever(s) and subjective ENT ENT ED: Denies sore throat Cardiovascular Cardiovascular: Denies chest pain Respiratory/Chest Respiratory/Chest: Denies cough or dyspnea Gastrointestinal Gastrointestinal: Reports abdominal pain, diarrhea, nausea and vomiting Genitourinary Genitourinary ED: Denies dysuria Musculoskeletal Musculoskeletal: Reports back pain and myalgias Integumentary Denies rash Neurologic Neurologic: Denies headache(s) Psychiatric Psychiatric: Reports anxiety and depression Hematologic/Lymphatic Hematologic/Lymphatic: Denies easy bleeding or easy bruising EXAM Physical Exam Const Vital Signs: 04/21/25 02:04 04/21/25 02:22 Temperature 99.9 F H Temperature Source Oral Pulse Rate 114 H Respiratory Rate 19 H Blood Pressure 150/104 H Blood Pressure Mean 119 Pulse Ox 100 Oxygen Delivery Method Room Air Positive well nourished, well developed and obese General Appearance ED: well developed; Negative for pallor Nutritional Appearance: obese HEENT HEENT Narrative: Normocephalic atraumatic No tongue or lip swelling no oral lesions no airway edema or compromise No secondary findings in the posterior pharynx to suggest infection Mucous membranes are dry and tacky however Eyes PERRL and EOMs intact bilaterally General Eye ED: Negative for scleral icterus Neck supple Neck Narrative: No nuchal rigidity or meningeal signs Resp normal respiratory effort and clear to auscultation bilaterally Cardio regular rhythm Rate: tachycardic and other Other Details: Tachycardic rate with regular rhythm Radial and carotid pulses are equal and symmetric GI non-distended and no masses GI Narrative: Abdomen is soft and nondistended with hyperactive bowel sounds. There is mild diffuse pain with palpation but no voluntary guarding or rigidity or pulsatile mass. No peritoneal signs Auscultation: hyperactive bowel sounds Palpation: soft Extremity normal to inspection Neuro oriented x3, CN's II-XII intact bilaterally and no sensory deficits noted Sensorium / Orientation: alert Motor Exam: strength 5/5 throughout Psych Mood & Affect: anxious Skin no rashes or lesions noted and No skin turgor normal Skin Narrative: Skin turgor is increased General Skin Exam: Negative for jaundice or pallor MDM MDM MDM Narrative Medical decision making narrative: Patient arrived to the ER with low-grade fever. He reported roughly 24 to 36 hours of nausea vomiting diarrhea with generalized abdominal discomfort. Historyand physical exam is most consistent with a viral stomach infection such as norovirus or rotavirus. However in order to ensure he is not developing an acute appendicitis versus acute cholecystitis versus pancreatitis versus diverticulitis I did elect to perform basic laboratory studies and CT scan with IV contrast. Labs showed leukocytosis with a white count of 14 with elevation in neutrophil count. His creatinine is slightly elevated at 1.44 correlating with mild dehydration. Otherwise there is no clinically significant findings tosuggest acute kidney injury electrolyte abnormality or acute pancreatitis. CT scan showed diffuse inflammation of the stomach and intestines consistent with enteritis/colitis. However there is no sign of perforation or obstruction or abscess. After provided medication the patient reported feeling much better andthere were no further bouts of nausea or vomiting. On reevaluation his abdomen remains soft and nonsurgical. Therefore at this time with improvement of symptoms and no surgical pathology noted on CT scan I do not feel there is need for further intervention and he is otherwise safe for discharge History & Record Review Discussion w/independent historian: Patient and Family Lab Data Attestation: I reviewed the patient's lab results. Labs: Laboratory Results - last 24 hr 04/21/25 02:20 WBC 14.0 H RBC 5.20 Hgb 16.4 Hct 48.7 MCV 93.7 MCH 31.5 MCHC 33.7 RDW Std Deviation 42.9 RDW Coeff of Rohith 12.3 Plt Count 372 MPV 9.9 Immature Gran % (Auto) 0.400 Neut % (Auto) 81.1 H Lymph % (Auto) 12.5 L Burnett % (Auto) 5.4 Eos % (Auto) 0.2 Baso % (Auto) 0.4 Absolute Neuts (auto) 11.4 H Absolute Lymphs (auto) 1.75 Nucleated RBC % 0 Sodium 144 Potassium 3.9 Chloride 104 Carbon Dioxide 23.4 Anion Gap 17 H BUN 10 Creatinine 1.44 H Estim Creat Clear Calc 96.43 Est GFR (MDRD) Non-Af 65 BUN/Creatinine Ratio 7.2 L Glucose 125 H Calcium 9.4 Total Bilirubin 0.42 Direct Bilirubin 0.18 AST 14 ALT 12 Alkaline Phosphatase 77 Total Protein 7.2 Albumin 4.5 Globulin 2.7 Lipase 27 Radiography Diagnostic Testing: Clinical Impression(s) from Imaging Studies Abdomen/Pelvis CT 04/21/25 02:14 IMPRESSION: Mild hepatic steatosis. Diffuse thickening of the stomach suggestive of gastritis. Mild multifocal thickening of the small bowels, probably enteritis. Mild multifocal thickening of the colon, probably colitis. No evidence of perforation or pneumatosis coli. Mild diffuse spondylosis. Reading Location: [place] [address] Discharge Plan Triage Chief Complaint: Nausea/Vomiting ED Provider: Diomedes York Dx/Rx/DC Orders Clinical Impression: Nausea vomiting and diarrhea, Abdominal pain, Dehydration, Anxiety and depression, Schizophrenia Instructions: ED Dehydration (Adult), ED Gastroenteritis, Viral (Adult) Prescriptions: New prochlorperazine maleate [Compazine] 10 mg tablet 10 mg PO TID PRN (Reason: nausea and vomiting) 7 Days Qty: 21 0RF oxycodone-acetaminophen [Percocet] 5-325 mg tablet 1 tab PO Q6H PRN (Reason: pain) 3 Days Qty: 12 0RF No Action trazodone 50 mg tablet 50 mg PO QHS albuterol sulfate 90 mcg/actuation HFA aerosol inhaler 1 - 2 puff inhalation Q4H PRN (Reason: cough) Invega Sustenna 234 mg/1.5 mL syringe 234 mg IM Q30D lorazepam 1 mg tablet 1 mg PO BID escitalopram oxalate 20 mg tablet 20 mg PO DAILY bupropion HCl 300 mg tablet extended release 24 hr 300 mg PO DAILY divalproex 500 mg tablet,delayed release (DR/EC) 1,000 mg PO BID haloperidol 5 mg tablet 5 mg PO BID hydroxyzine HCl 50 mg tablet 50 mg PO TID diclofenac sodium 75 mg tablet,delayed release (DR/EC) 75 mg PO BID Primary Care Provider: Kamron Erickson Referrals: Kamrno Erickson MD [Primary Care Provider, Family Practice] Activity Restrictions/Additional Instructions: Your CT scan showed irritation to your stomach and intestines consistent with gastroenteritis. This is a viral stomach infection that will last anywhere from1 to 10 days with the average being 3 days. Please keep yourself well-hydrated and take the prescribed medication as directed to help control symptoms. Returnto the ER should you have any further concerns Print Language: Danish Disposition Disposition: Home, Self Care What to do if you have Problems For any increased pain, shortness of breath, bleeding, nausea or vomiting, chestpain, or any unexpected problems, contact your Primary Care Provider. Call [facility] ([phone]) or report to the closest Emergency Room. Call 911 if necessary. 04/21/25 0329 <Electronically signed by Diomedes York DO> Cosigner Signature (if applicable): CC: Dr. Kamron Erickson MD ~ Signed [facility] Work Phone: Evaluation noteNo assessment information available [facility] Work Phone: Evaluation note* Diagnosis Onset Date Resolution Status Admit Date Intentional overdose of trazodone acute November 02, 2024 12:55pm Prolonged QT interval acute Apr 2024 12:55pm [facility] Work Phone: History and physical note Author Román Sandoval [facility] Note Date/Time November 02, 2024 1:11 pm [facility] Medical Records Department [address] [place] [address] H&P Exam - Hospitalist 11/02/24 1306 MR#: [id number] Acct: [id number] Name: AIMEE DUCKWORTH Rep #:[id number] : [...] % (Auto) 54.1, Lymph % (Auto) 24.9, [place]% (Auto) 18.0 H, Eos % (Auto) 2.1, [...] Multi Select Codes Visit Charges Visit Charges: 85786 Init [facility] L[facility] Hospitalists' Procedures Procedures: 03085 Advncd Care Plan 30 Min 11/02/24 1311 <Electronically signed by Román Sandoval MD> Cosigner Signature (if applicable): CC: Dr. Román Sandoval MD; Dr. Kamron Erickson MD~ Signed [facility] Work Phone: Reason for referral (narrative)No reason for referral information availableW[facility] Work Phone: Summary Purpose Family History No Family History Records FoundNo Family History Records FoundNo Family History Records Found Advance Directives Advance Directive Response Recorded Date/ Time Living Will No December 04, 2018 12 :33pm Power of Intelligence Research Specialist No December 04, 2018 12:33pm Advance Directive Response Recorded Date/ Time Living Will No December 31, 2021 1 :58am Power of Intelligence Research Specialist No December 31, 2021 1:58am Advance Directive Response Recorded Date/ Time Living Will No January 30, 2022 3:53pm Power of Intelligence Research Specialist No January 30 3:53pm Advance Directive Response Recorded Date/ Time Living Will No May 29 9:05pm Power of Intelligence Research Specialist No May 29, 2022 9:05pm Advance Directive Response Recorded Date/ Time Living Will No April 13, 2023 4:10am Power of Intelligence Research Specialist No April 4:10am Advance Directive Response Recorded Date/ Time Living Will No November 02, 2024 11:27am Do you have a Healthcare Power of Intelligence Research Specialist? No November 02, 2024 11:27am Living Will No August 03, 024 2:14pm Do you have a Healthcare Power of Intelligence Research Specialist? No August 03, 2024 2:14pm Advance Directive Response Recorded Date/ Time Living Will No November 02, 2024 1:54pm Do you have a Healthcare Power of Intelligence Research Specialist? No November 02, 2024 1:54pm Living Will No August 03, 2 024 2:14pm Do you have a Healthcare Power of Intelligence Research Specialist? No August 03, 2024 2:14pm Advance Directive Response Recorded Date/ Time Do you have a Healthcare Power of Intelligence Research Specialist? No April 21, 2025 2:04am Chief Complaint and Reason for Visit Chief [...] pm INTENTIONAL DRUG OVERDOSE November 03 7:15am Chief Complaint Admit Date n/v April 21, 2025 2:03am Additional Source Comments (unrecognized sect ion and content) No Status Records FoundNo Status Records FoundNo Status Records Found INFORMATION SOURCE (unrecogn ized section and content) DATE CREATED AUTHOR 07/12/2018 [facility] [place] DATE CREATED AUTHOR AUTHOR'S ORGANIZ ATION 05/13/2023 [facility] DATE CREATED AUTHOR AUTHOR'S ORGANIZ ATION 11/09/2024 [facility] Goals (unrecognized section and content) Goals may [...] Provider Active Star t: November 03, 2024 Team Status: Active Member Role/Relationship Status Dates Dr. Kamron Erickson MD Primary care physician Active Team Status: Inactive Member Role/Relationship Status Dates Dr. Kamron Erickson MD Primary care physician Active Start: April 21, 2025 End: April 21, 2025 Dr. Diomedes York DO [facility] Physician Active Start: April 21, 2025 End: April 21, 2025 FOR RECORDS PERTAINING TO PATIENTS WHO ARE [...] BE BASED ON THE PRIMARY CLINICAL RECORDS. [facility]. provides no warranty or guarantee of the accuracy or completeness of information in this document.
[2025-04-22 08:54] LABS: Red Blood Cells-Urine 0 SEEN /hpf (0-5); Squamous Epithelial Cells - UA 0 SEEN /hpf (0-5)
[2025-04-22 09:01] LABS: Lipase 37 U/L (13-75)
[2025-04-22 09:03] LABS: AST(SGOT) 12 U/L (<=37); Alanine Aminotransfer ALT/SGPT 10 U/L (<=46); Albumin, Serum 4.2 g/dL (3.5-5.0); Alkaline Phosphatase 67 U/L (40-129); Anion Gap 17 (5-15); BUN 17 mg/dL (4-19); BUN/Creat Ratio 13.1 RATIO (10-20); Calcium,Total 8.9 mg/dL (7.6-11.0); Carbon Dioxide 30.5 mmol/L (21.0-32.0); Chloride 93 mmol/L (98-108); Estimated Creatinine Clearance 106.18 ml/min (50-250); Globulin 2.4 g/dL (2.2-4.2); Glucose 135 mg/dL (70-99); Potassium 2.6 mmol/L (3.3-5.1)
[2025-04-22 09:14] LABS: Color, Urine Yellow (Yellow); Glucose, Dipstick Normal (Normal); Leukocyte Esterase-Dipstick 25 /ul (Negative); Nitrite-Dipstick Negative (Negative); Occult Blood-Urine 10 /ul (Negative); Protein-Dipstick 100 mg/dl (Negative); Specific Gravity, Urine 1.015 (1.002-1.030)
[2025-04-22 09:20] LABS: Ketone-Dipstick 150 mg/dl (Negative); Urine Bilirubin Dipstick 1 mg/dL (Negative)
[2025-04-22 09:22] LABS: Mucous, Urine 1+ /hpf (<or=2+)
[2025-04-22 09:38] VITALS: BP 163/114; PULSE 97; RESP 16; O2SAT 99
[2025-04-22] MEDS: Potassium Chloride Oral Tablet 20 MEQ 40 MEQ PO ×2 (10:46→11:53)
[2025-04-22 11:00] VITALS: BP 141/93; PULSE 68; O2SAT 97
[2025-04-22 11:54] VITALS: BP 152/94; PULSE 68; RESP 16; TEMP 36.7; O2SAT 97
== END 2025-04-22 11:55 | disposition home or self-care (01) ==
PROVIDERS: Emergency Provider Emergency Medicine; PCP Family Medicine; Visit Provider Emergency Medicine
DX: R10.9 Unspecified abdominal pain (principal); F20.9 Schizophrenia, unspecified; E87.6 Hypokalemia; F41.9 Anxiety disorder, unspecified; F17.210 Nicotine dependence, cigarettes, uncomplicated; R11.2 Nausea with vomiting, unspecified; Z79.899 Other long term (current) drug therapy; F32.A Depression, unspecified; F17.290 Nicotine dependence, other tobacco product, uncomplicated
CPT/HCPCS: 80053; 81001; 83690; 85025; 96374; 96375; 99283; J2405

== ENCOUNTER 2025-05-30 16:58 | Emergency (ER) | payer MEDICARE, MEDICAID, SELFPAY ==
[2025-05-30 16:58] VITALS: BP 143/118; PULSE 113; RESP 16; TEMP 36.7; O2SAT 100; BMI 35.1
[2025-05-30 17:00] VITALS: BP 143/118; PULSE 113; RESP 16; TEMP 36.7; O2SAT 100
[2025-05-30 17:38] LABS: Hematocrit 53.3 % (40-54); Hemoglobin 17.8 g/dL (13.0-16.5); Immature Granulocytes Count 0.050 X10^3/uL (0.0-0.0); Mean Corp Hgb Conc 33.4 g/dL (32-36); Mean Corpuscular Volume 93.2 fL (80-94); Mean Platelet Vol. 10.0 fl (6.2-12.0); NRBC Flagged by Analyzer 0 % (0-5); POSITIVE DIFFERENTIAL YES; Platelet Count 368 K/mm3 (150-450); RBC Distribution Width CV 12.8 % (11.6-14.6); RBC Distribution Width SD 43.8 fl (35.1-43.9); Red Blood Count 5.72 M/mm3 (4.6-6.2); White Blood Count 14.9 K/mm3 (4.4-11.0)
--- NOTE | 2025-05-30 17:47 | EX.ED.DYSGE1 ---
HPI History of Present Illness Chief Complaint: Nausea/Vomiting/Diarrhea Narrative Narrative: 34-year-old male presents with nausea, vomiting, and diarrhea that has had for the last 3 days. He states that he has had subjective fever as well. In the last 24 hours he has had at least 5-6 episodes of vomiting with perhaps a few blood streaks in it. He is having watery stool as well. He describes more left lower quadrant abdominal pain. No exacerbating or alleviating factors. He feels dehydrated and weak. He does admit to smoking marijuana as well. Of note, he relates history that he was diagnosed by a diplomatic interpreter with stomach carcinoma, but has not done anything about it. He states this was found on endoscopy 3 to 4 years ago. He is currently not undergoing any treatment. [facility] Medical History Spinal stenosis Schizophrenia Depression Anxiety Smoker Schizophrenia Migraines Asthma Home Medications ?Medication ?Instructions ?Recorded ?Last Taken ?Type divalproex 500 mg tablet,delayed 1,000 mg PO BID 06/02/24 11/02/24 History release albuterol sulfate 90 mcg/actuation 1 - 2 puff inhalation Q4H PRN cough 11/02/24 Unknown History aerosol inhaler bupropion HCl 300 mg 24 hr tablet, 300 mg PO DAILY 11/02/24 11/02/24 History extended release escitalopram oxalate 20 mg tablet 20 mg PO DAILY 11/02/24 11/02/24 History lorazepam 1 mg tablet 1 mg PO BID 11/02/24 Unknown History paliperidone palmitate 234 mg/1.5 234 mg IM Q30D 11/02/24 10/09/24 History mL intramuscular syringe (Invega Sustenna) trazodone 50 mg tablet 50 mg PO QHS 11/02/24 Unknown History diclofenac sodium 75 mg 75 mg PO BID 04/21/25 Unknown History tablet,delayed release haloperidol 5 mg tablet 5 mg PO BID 04/21/25 Unknown History hydroxyzine HCl 50 mg tablet 50 mg PO TID 04/21/25 Unknown History oxycodone-acetaminophen 5 mg-325 1 tab PO Q6H PRN pain 3 days #12 04/21/25 Unknown Rx mg tablet (Percocet) tabs prochlorperazine maleate 10 mg 10 mg PO TID PRN nausea and 04/21/25 Unknown Rx tablet (Compazine) vomiting 7 days #21 tabs promethazine 25 mg tablet 25 mg PO Q6H PRN nausea and 04/22/25 Unknown Rx vomiting 7 days #30 tabs promethazine 25 mg tablet 25 mg PO Q6H PRN PRN Nausea #20 05/30/25 Unknown Rx TABLETS Allergy/AdvReac Type Severity Reaction Status Date / Time Sulfa (Sulfonamide Allergy Unknown Verified 05/30/25 16:58 Antibiotics) sulfisoxazole (From Allergy Hives Verified 05/30/25 16:58 Gantrisin) Family History no significant family his Social History household members: family Smoking Status: Current every day smoker tobacco type: cigarettes and e-cigarettes ROS ROS ED ROS Narrative Review of systems is positive for nausea, vomiting, diarrhea, subjective fever. Positive left lower quadrant abdominal pain. No exacerbating or alleviating factors. Small blood streaks in emesis reportedly. Positive watery stool multiple times within the last 24 hours. EXAM Physical Exam Narrative Exam Narrative: Afebrile. Vital signs noted. Nontoxic-appearing. Cardiovascular examination reveals regular tachycardia. Lungs clear to auscultation bilaterally. Abdomen is soft with mild tenderness to palpation in the left lower quadrant. No guarding or rebound. Positive bowel sounds. Neurological examination nonfocal, nonlateralizing. Const Vital Signs: 05/30/25 16:58 05/30/25 17:00 05/30/25 18:58 Temperature 98.1 F 98.1 F Temperature Source Oral Oral Pulse Rate 113 H 113 H 85 Respiratory Rate 16 16 18 Blood Pressure 143/118 H 143/118 H 127/85 H Blood Pressure Mean 126 126 99 Pulse Ox 100 100 100 Oxygen Delivery Method Room Air Room Air Room Air 05/30/25 20:00 05/30/25 20:19 Temperature 98.1 F Temperature Source Pulse Rate 89 89 Respiratory Rate 18 18 Blood Pressure 100/57 L 100/57 L Blood Pressure Mean 71 71 Pulse Ox 97 97 Oxygen Delivery Method Room Air MDM MDM MDM Narrative Medical decision making narrative: Differential diagnosis includes but not limited to gastroenteritis versus pancreatitis versus cannabis induced hyperemesis. He may have dehydration or other electrolyte abnormality. He will be bolused normal saline IV 1 L and administered ondansetron. I do feel CT imaging is indicated. Protocol labs were already ordered. I reviewed his laboratory work and he has a leukocytosis of 14.9 which I think is nonspecific and may be demargination from his vomiting. Additionally in review of prior labs he has had leukocytosis like this previously. Hemoglobin hemoconcentrated at 17.8, hematocrit 53.3, platelet count normal at 368. CMP is remarkable for slightly elevated anion gap of 18 with a BUN of 9 and creatinine 1.31. However, his sodium, potassium, chloride, and CO2 are normal. AST and ALT are normal with normal alk phos and normal total bilirubin. Lipase normal at 33 so I doubt pancreatitis. Urinalysis does show 5-10 WBCs but negative nitrites. He is not symptomatic with this so I do not feel that antibiotics are indicated for a UTI. I reviewed the radiology report of the CT of the abdomen and pelvis with IV contrast. There are no acute abnormalities in the abdomen or pelvis. He does have fluid-filled bowel loops consistent with diarrheal illness. Upon repeat examination, he states he still nauseated. I reviewed his medication list and he has had multiple medications previously for nausea. He will be given Compazine 10 mg IV as well as lorazepam 0.5 mg intravenously as he may have more of a cyclic vomiting given his marijuana use. Additionally, he requested something to help with the headache so he was administered ketorolac 15 mg intravenously. Given his negative workup here, I do feel that he can be discharged to follow-up. He will be reevaluated. He is not currently tachycardic. Upon repeat examination, he has not been vomiting in the ED. He states the promethazine works best for his nausea. He was written a prescription for 25 mg tablets #20 to take every 6 hours as needed nausea and vomiting. He was told to start a clear liquid diet tomorrow and advance as tolerated. Return instructions to the emergency department were reviewed. Disposition is discharged home in stable condition. History & Record Review Discussion w/independent historian: Patient Additional record(s) reviewed:: Prior ED visit and Prior labs Lab Data Attestation: I reviewed the patient's lab results. Labs: Laboratory Results - last 24 hr 05/30/25 05/30/25 17:20 18:25 WBC 14.9 H RBC 5.72 Hgb 17.8 H Hct 53.3 MCV 93.2 MCH 31.1 MCHC 33.4 RDW Std Deviation 43.8 RDW Coeff of Rohith 12.8 Plt Count 368 MPV 10.0 Immature Gran % (Auto) 0.300 Neut % (Auto) 55.5 Lymph % (Auto) 35.2 [place] % (Auto) 6.9 Eos % (Auto) 1.5 Baso % (Auto) 0.6 Absolute Neuts (auto) 8.3 H Absolute Lymphs (auto) 5.25 H Nucleated RBC % 0 Differential Comment SCANNED Platelet Estimate ADEQUATE Sodium 141 Potassium 3.4 Chloride 99 Carbon Dioxide 24.3 Anion Gap 18 H BUN 9 Creatinine 1.31 H Estim Creat Clear Calc 105.14 Est GFR (MDRD) Non-Af 73 BUN/Creatinine Ratio 6.8 L Glucose 120 H Calcium 9.9 Total Bilirubin 0.57 AST 21 ALT 15 Alkaline Phosphatase 94 Total Protein 7.9 Albumin 5.0 Globulin 2.9 Albumin/Globulin Ratio 1.8 Lipase 33 Urine Color Yellow Urine Clarity Clear Urine pH 6.0 Ur Specific [place] 1.015 Urine Protein 100 H Urine Glucose (UA) Normal Urine Ketones 50 H Urine Occult Blood 10 H Urine Nitrite Negative Urine Bilirubin Negative Urine Urobilinogen Normal Ur Leukocyte Esterase 25 H Urine RBC 0-5 SEEN Urine WBC 5-10 SEEN Ur Squamous Epith Cells 0 SEEN Urine Bacteria 1+ Urine Mucus 0 SEEN Radiography Diagnostic Testing: Clinical Impression(s) from Imaging Studies Abdomen/Pelvis CT 05/30/25 18:06 IMPRESSION: No acute abnormalities of the abdomen or pelvis. Fluid-filled loops of bowel which may represent diarrheal illness. Hepatic steatosis. Reading Location: [facility] Discharge Plan Triage Chief Complaint: Nausea/Vomiting/Diarrhea ED Provider: Berhane Adame Dx/Rx/DC Orders Clinical Impression: Nausea, vomiting, and diarrhea, Headache Instructions: ED Diet Vomiting Diarrhea, ED Gastroenteritis, Viral (Adult) Prescriptions: New promethazine 25 mg tablet 25 mg PO Q6H PRN PRN (Reason: Nausea) Qty: 20 0RF No Action trazodone 50 mg tablet 50 mg PO QHS albuterol sulfate 90 mcg/actuation HFA aerosol inhaler 1 - 2 puff inhalation Q4H PRN (Reason: cough) Invega Sustenna 234 mg/1.5 mL syringe 234 mg IM Q30D lorazepam 1 mg tablet 1 mg PO BID escitalopram oxalate 20 mg tablet 20 mg PO DAILY bupropion HCl 300 mg tablet extended release 24 hr 300 mg PO DAILY divalproex 500 mg tablet,delayed release (DR/EC) 1,000 mg PO BID haloperidol 5 mg tablet 5 mg PO BID hydroxyzine HCl 50 mg tablet 50 mg PO TID diclofenac sodium 75 mg tablet,delayed release (DR/EC) 75 mg PO BID prochlorperazine maleate [Compazine] 10 mg tablet 10 mg PO TID PRN (Reason: nausea and vomiting) 7 Days Qty: 21 0RF oxycodone-acetaminophen [Percocet] 5-325 mg tablet 1 tab PO Q6H PRN (Reason: pain) 3 Days Qty: 12 0RF promethazine 25 mg tablet 25 mg PO Q6H PRN (Reason: nausea and vomiting) 7 Days Qty: 30 0RF Primary Care Provider: Yovani Erickson Referrals: Yovani Erickson MD [Primary Care Provider, Family Practice] - 3-5 Days if not improving Activity Restrictions/Additional Instructions: Give your stomach a rest tonight. Start a clear liquid diet and advance as tolerated. Promethazine as directed. Follow-up with your primary care provider. Print Language: Azeri Disposition Disposition: Home, Self Care
[2025-05-30 17:49] LABS: Differential Indicated SCAN CRITERIA MET
[2025-05-30] MEDS: 0.9% Normal Saline (1000mL) 1,000 ML 999 ML IV (17:57)
[2025-05-30 18:03] LABS: AST(SGOT) 21 U/L (<=37); Alanine Aminotransfer ALT/SGPT 15 U/L (<=46); Albumin, Serum 5.0 g/dL (3.5-5.0); Alkaline Phosphatase 94 U/L (40-129); Anion Gap 18 (5-15); BUN 9 mg/dL (4-19); BUN/Creat Ratio 6.8 RATIO (10-20); Calcium,Total 9.9 mg/dL (7.6-11.0); Carbon Dioxide 24.3 mmol/L (21.0-32.0); Chloride 99 mmol/L (98-108); Estimated Creatinine Clearance 105.14 ml/min (50-250); Globulin 2.9 g/dL (2.2-4.2); Glucose 120 mg/dL (70-99); Lipase 33 U/L (13-75); Potassium 3.4 mmol/L (3.3-5.1)
--- NOTE | 2025-05-30 18:06 | CT_ITS ---
PROCEDURE: CT/Abdomen/Pelvis W IV Cont ONLY
[2025-05-30 18:29] LABS: Mucous, Urine 0 SEEN /hpf (<or=2+); Squamous Epithelial Cells - UA 0 SEEN /hpf (0-5)
[2025-05-30 18:33] LABS: Color, Urine Yellow (Yellow); Glucose, Dipstick Normal (Normal); Ketone-Dipstick 50 mg/dl (Negative); Leukocyte Esterase-Dipstick 25 /ul (Negative); Nitrite-Dipstick Negative (Negative); Occult Blood-Urine 10 /ul (Negative); Protein-Dipstick 100 mg/dl (Negative); Specific Gravity, Urine 1.015 (1.002-1.030); Urine Bilirubin Dipstick Negative (Negative)
[2025-05-30 18:44] LABS: Differential Comment SCANNED
[2025-05-30 18:58] VITALS: BP 127/85; PULSE 85; RESP 18; O2SAT 100
[2025-05-30 19:02] LABS: Red Blood Cells-Urine 0-5 SEEN /hpf (0-5)
[2025-05-30 20:00] VITALS: BP 100/57; PULSE 89; RESP 18; O2SAT 97
[2025-05-30 20:19] VITALS: BP 100/57; PULSE 89; RESP 18; TEMP 36.7; O2SAT 97
== END 2025-05-30 20:28 | disposition home or self-care (01) ==
PROVIDERS: Emergency Provider Emergency Medicine; PCP Family Medicine; Visit Provider Emergency Medicine
DX: R11.2 Nausea with vomiting, unspecified (principal); C16.9 Malignant neoplasm of stomach, unspecified; F20.9 Schizophrenia, unspecified; R19.7 Diarrhea, unspecified; F17.210 Nicotine dependence, cigarettes, uncomplicated; R51.9 Headache, unspecified; F32.A Depression, unspecified; F41.9 Anxiety disorder, unspecified; Z79.899 Other long term (current) drug therapy; F17.290 Nicotine dependence, other tobacco product, uncomplicated
CPT/HCPCS: 74177; 80053; 81001; 83690; 85025; 96361; 96374; 96375; 99284; Q9967; A4216; J2405

== ENCOUNTER 2025-05-31 00:40 | Observation (INO) | payer MEDICARE, MEDICAID, SELFPAY ==
[2025-05-31] VITALS (11 sets, daily range): BP systolic 138–160; BP diastolic 81–99; PULSE 97–145; RESP 16–21; TEMP 36.6–37.2; O2SAT 97–100; BMI 34.2; BMI 34.4
[2025-05-31] MEDS: 0.9% Normal Saline (1000mL) 1,000 ML 999 ML IV ×2 (01:08→03:05)
[2025-05-31 01:22] LABS: Hematocrit 49.4 % (40-54); Hemoglobin 17.0 g/dL (13.0-16.5); Immature Granulocytes Count 0.100 X10^3/uL (0.0-0.0); Mean Corp Hgb Conc 34.4 g/dL (32-36); Mean Corpuscular Volume 91.7 fL (80-94); Mean Platelet Vol. 10.4 fl (6.2-12.0); NRBC Flagged by Analyzer 0 % (0-5); Platelet Count 360 K/mm3 (150-450); RBC Distribution Width CV 12.8 % (11.6-14.6); RBC Distribution Width SD 43.2 fl (35.1-43.9); Red Blood Count 5.39 M/mm3 (4.6-6.2); White Blood Count 19.9 K/mm3 (4.4-11.0)
[2025-05-31] MEDS: DiphenhydrAMINE 50 MG, ChlorproMAZINE 50 MG in 0.9% Normal Saline (250mL Bag) 247 ML 250 MG IV (01:26)
[2025-05-31 01:41] LABS: AST(SGOT) 18 U/L (<=37); Alanine Aminotransfer ALT/SGPT 12 U/L (<=46); Albumin, Serum 4.7 g/dL (3.5-5.0); Alkaline Phosphatase 87 U/L (40-129); Anion Gap 23 (5-15); BUN 9 mg/dL (4-19); BUN/Creat Ratio 7.1 RATIO (10-20); Bilirubin, Direct 0.18 mg/dL (0.00-0.30); Calcium,Total 9.5 mg/dL (7.6-11.0); Carbon Dioxide 18.3 mmol/L (21.0-32.0); Chloride 101 mmol/L (98-108); Estimated Creatinine Clearance 103.71 ml/min (50-250); Globulin 2.6 g/dL (2.2-4.2); Glucose 187 mg/dL (70-99); Lipase 51 U/L (13-75); Potassium 3.4 mmol/L (3.3-5.1)
[2025-05-31 01:47] LABS: Prothrombin Time (Protime)PT. 13.2 SECONDS (11.7-14.9)
[2025-05-31 01:48] LABS: Partial Thromboplast Time 22.7 Seconds (24.1-36.2)
[2025-05-31] MEDS: Lidocaine 2% Viscous15 ML UDC 15 ML PO ×2 (02:17→18:10)
[2025-05-31] MEDS: Pantoprazole Sodium 40 MG in 0.9% Normal Saline (100mL MB+) 100 ML 300 MG IV (02:38)
--- NOTE | 2025-05-31 02:40 | RAD_ITS ---
PROCEDURE: CHEST PA AND LATERAL 05/30/2025 REASON FOR EXAM: ABD/CHEST PAIN TECHNIQUE: Procedure Code: RADCXR Modality: DX Procedure: CHEST PA AND LATERAL FINDINGS: No focal consolidation. No pleural effusion or pneumothorax. Cardiac silhouette is within normal limits. No acute fractures. RAD/Chest PA and Lateral IMPRESSION: No focal consolidations. Reading Location: [id number]
--- OUTSIDE RECORDS SUMMARY | 2025-05-31 02:51 | XMS RPT_ITS | CCD ---
Author Organization [facility] [employer] Care Team Providers Care Vocational Rehabilitation Technician Name Role Phone Coco MoreiraTiffJustin Unavailable Unavailable Hailey Jarquin RN PERITONEAL DIALYSIS Unavailable Unavailable Abraham Aguilar REIMBURSEMENT SPECIALIST Unavailable Unavailable VIDAL CAMARGO Attending Unava ilable KAMRON ERICKSON Primary Care Unavailable Dre GUZMÁN, Dr. Pina Primary Care Provider Dr. Rodriguez Beavers DO Attending Provider Dr. Rodriguez Beavesr DO Emergency Provider Guy GUZMÁN, Dr. Redd Emergency Provider [phone] Lori GUZMÁN, Dr. [place] Admit Provider Unavailable Lori GUZMÁN, Dr. [place] Attending Provider Unavailtenzin Sandoval MD, Dr. [place] Other Provider Unavailable Dre GUZMÁN, Dr. Pina Primary Care Physician Dr. Diomedes York DO Emergency Department Physic ayesha Dre, Kamron Primary Care Unavailable Diomedes York Attending Unavailable Dre, Kamron Primary Care Unavailable Román Sandoval Admitting Unavailable Román Sandoval Attending Unavailable Dre, Kamron Primary Care Unavailable Román Sandoval Attending Unavailable Rodriguez Beavers Attending Unavailable Erickson, Kamron Primary Care Unavailable Diomedes York Attending Unavailable Erickson, Kamron Primary Care Unavailable Dre, Kamron Primary Care Unavailable Román Sandoval Consulting Unavailable Román Sandoval Attending Unavailable Román Sandoval Admitting Unavailable Erickson, Kamron Primary Care Unavailable Rodriguez Beavers Attending Unavailable Dr. Diomedes York DO Attending Physician Dr. Rodriguez Beavers DO Attending Physician Dr. Rodriguez Beavers DO Emergency Department Physi donna Allergies Allergy Classification Reported Allergen(s) Allergy Type Date of Onset Reaction(s) Facility (10 sources) sulfiSOXAZOLE Drug Allergy 9 Hives [facility] (11 sources) Sulfonamides (Antibiotic); Translations: [Sulfa (Sulfonamide Antibiotics)] Allergy to substance 9 Unknown [facility] (1 source) sulfiSOXAZOLE; Translations: [GANTRISIN] Drug Allergy 3 [facility] Repository (1 source) sulfiSOXAZOLE Drug Allergy 5 [facility] Repository Medications Current Medications Medication Drug Class(es) Dates Sig (Normalized) Sig (Original) acetaminophen 325 mg / oxyCODONE hydrochloride 5 mg oral tablet (2 sources) Opioid Agonist Start: 04-21-2025 take 1 tablet by mouth every six hours as needed for pain [id number] 200 actuat albuterol 0.09 mg/actuat metered dose inhaler (4 sources) beta2-Adrenergic Agonist Start: 11-02-2024 24 hr buPROPion hydrochloride 300 mg extended release oral tablet (20 sources) Aminoketone Start: 11-02-2024 take 1 tablet [...] sodium 75 mg delayed release oral tablet (2 sources) Nonsteroidal Anti-inflammatory Drug Start: 04-21-2025 take 1 tablet by mouth twice daily escitalopram 20 mg oral tablet (17 sources) Serotonin Reuptake Inhibitor Start: 11-02-2024 take 1 tablet by mouth once daily Start: 12-31-2021 End: 08-03-2024 take 1 tablet by mouth once daily Escitalopram Oxalate 20 mg tablet Discontinued 20 mg PO DAILY June 02, 2024 12:00am August 03, 2024 5:26pm haloperidol 5 mg oral tablet (18 sources) Typical Antipsychotic Start: 04-21-2025 take 1 tablet by mouth twice daily Start: 08-03-2024 End: 11-02-2024 take 1 tablet [...] 5:22pm hydrOXYzine hydrochloride 50 mg oral tablet (2 sources) Antihistamine Start: 04-21-2025 take 1 tablet by mouth three times daily LORazepam 1 mg oral tablet (4 sources) Benzodiazepine Start: 11-02-2024 take 1 tablet by mouth twice daily 1.5 ml paliperidone palmitate 156 mg/ml prefilled syringe (17 sources) Atypical Antipsychotic Start: 11-02-2024 Start: 04-25-2024 End: 08-03-2024 Paliperidone Palmitate (Inve glory Rivera) 234 mg/1.5 mL syringe Discontinued 234 mg IM EVERY MONTH April 25, 2024 12:00am August 03, 2024 7:23pm Start: 12-31-2021 End: 04-25-2024 take 1 tablet by mouth once daily Paliperidone 3 mg tablet extended release 24hr Discontinued 3 mg PO DAILY December 31, 2021 12:00am April 25, 2024 10:22pm prochlorperazine 10 mg oral tablet (2 sources) Phenothiazine Start: 04-21-2025 take 1 tablet by mouth three times daily as needed for nausea and vomiting promethazine hydrochloride 2 5 mg oral tablet (6 sources) Phenothiazine Start: 04-22-2025 take 1 tablet by mouth every six hours as needed for nausea and vomiting Start: 04-13-2023 End: 04-25-2024 take 1 tablet by mouth three times daily as needed for nausea and vomiting Promethazine 25 mg tablet Discontinued 25 mg PO THREE TIMES A DAY as needed for nausea and vomiting 14 0 April 13, 2023 12:00am April 25, 2024 10:22pm traZODone hydrochloride 50 mg oral tablet (8 sources) Serotonin Reuptake Inhibitor Start: 11-02-2024 take [...] sodium 500 mg delayed release oral tablet (8 sources) Mood Stabilizer, Anti-epileptic Agent Start: 06-02-2024 take 2 tablets by mouth twice daily Start: 04-25-2024 End: 08-03-2024 take 1 tablet by mouth twice daily Divalproex 125 mg tablet,delayed release (DR/EC) Discontinued 125 mg PO TWICE A DAY April 25, 2024 12:00am August 03, 2024 5:28pm Completed/Discontinued Medications Medication Drug Class(es) Dates Sig (Normalized) Sig (Original) atomoxetine 25 mg oral capsule (8 sources) Norepinephrine Reuptake Inhibitor Start: 06-02-2024 End: 08-03-2024 take 1 capsule by mouth once daily Atomoxetine 25 mg capsule Discontinued 25 mg PO DAILY June 02, 2024 12:00am August 03, 2024 5:28pm Start: 06-02-2024 End: 08-03-2024 Atomoxetine 40 mg capsule Di scontinued PO June 02, 2024 12:00am August 03, 2024 5:28pm benztropine mesylate 1 mg oral tablet (4 sources) Anticholinergic, Antihistamine Start: 06-02-2024 End: 08-03-2024 take 1 tablet by mouth twice daily Benztropine 1 mg tablet Discontinued 1 mg PO TWICE A DAY June 02, 2024 12:00am August 03, 2024 5:28pm gabapentin 300 mg oral capsule (12 sources) Anti-epileptic Agent Start: 06-02-2024 End: 08-03-2024 [...] 2024 5:28pm montelukast 10 mg oral tablet (7 sources) Leukotriene Receptor Antagonist Start: 01-30-2022 End: 04-25-2024 take 1 tablet by mouth once daily Montelukast (Singulair) 10 mg tablet Discontinued 10 mg PO DAILY 14 0 January 30, 2022 12:00am April 25, 2024 10:22pm nabumetone 500 mg oral tablet (4 sources) Nonsteroidal Anti-inflammatory Drug Start: 06-02-2024 End: 08-03-2024 take 1 tablet by mouth twice daily Nabumetone 500 mg tablet Discontinued 500 mg PO TWICE A DAY June 02, 2024 12:00am August 03, 2024 5:28pm nicotine 2 mg chewing gum (4 sources) Cholinergic Nicotinic Agonist Start: 06-02-2024 End: 08-03-2024 take 2 mg by mouth every two hours as needed Nicotine (Polacrilex) 2 mg gum Discontinued 2 mg PO EVERY 2 HOURS NEEDED as needed for nicotine cravings June 02, 2024 12:00am August 03, 2024 5:28pm ondansetron 4 mg disintegrating oral tablet (20 sources) Serotonin-3 Receptor Antagonist Start: 01-30-2022 End: [...] 2024 10:22pm predniSONE 10 mg oral tablet (4 sources) Start: 01-08-2024 End: 04-25-2024 Prednisone 10 mg tablet Discontinued 60 mg PO TWICE A DAY 84 7 0 January 08, 2024 12:00am April 25, 2024 10:21pm Risperidone (12 sources) Atypical Antipsychotic Start: 08-03-2024 End: 11-02-2024 Risperidone (Uzedy) 200 mg/0.56 mL suspension,extended rel syring Discontinued 200 mg SC .Q2MON August 03, 2024 1:00am November 02, 2024 1:05pm Start: 04-25-2024 End: 08-03-2024 Risperidone (Perseris) 120 m g suspension,extended rel syring Discontinued 120 mg SC June 02, 2024 12:00am August 03, 2024 5:28pm once a month injection valACYclovir 1000 mg oral tablet (4 sources) Herpesvirus Nucleoside Analog DNA Polymerase Inhibitor, Herpes Simplex Virus Nucleoside Analog DNA Polymerase Inhibitor, Herpes Zoster Virus Nucleoside Analog DNA Polymerase Inhibitor Start: 01-08-2024 End: 04-25-2024 Valacyclovir 1 gram tablet Discontinued 1000 mg PO Q8H 14 0 January 08, 2024 12:00am April 25, 2024 10:21pm Problems Active Problems Problem Classification Problem Date Documented Da te Episodic/Chronic Abdominal pain (5 sources) Unspecified abdominal pain; Translations: [Abdominal pain] Onset: 05-06-2023 Episodic Anxiety disorders (2 sources) Mixed anxiety and depressive disorder; Translations: [Anxiety disorder, unspecified] 04-21-2025 Chronic Attention-deficit, conduct, and disruptive behavior disorders (10 sources) Threatening behavior; Translations: [Other symptoms and signs involving appearance and behavior] 06-07-2022 Episodic Cardiac dysrhythmias (4 sources) Tachycardia; Translations: [Tachycardia, unspecified] 05-04-2024 Episodic Chronic obstructive pulmonary disease and bronchiectasis (7 sources) Bronchitis; Translations: [Bronchitis, not specified as acute or chronic] 02-07-2022 Episodic Coma; stupor; and brain damage (4 sources) Drowsy; Translations: [Somnolence] 11-02-2024 Episodic Fluid and electrolyte disorders (2 sources) Dehydration; Translations: [Dehydration] 04-21-2025 Episodic Headache; including migraine (1 source) Headache; including migraine; Translations: [Headache, unspecified] Onset: 08-30-2024 Mood disorders (8 sources) Major depressive disorder; Translations: [Major depressive disorder, single episode, unspecified] 11-02-2024 Chronic Nausea and vomiting (20 sources) Nausea and vomiting; Translations: [Nausea with vomiting, unspecified] Onset: 05-06-2023 01-08-2022 Episodic Other circulatory disease (4 sources) Elevated blood-pressure reading without diagnosis of hypertension; Translations: [Elevated blood-pressure reading, without diagnosis of hypertension] 05-04-2024 Episodic Other lower respiratory disease (2 sources) Solitary pulmonary nodule; Translations: [Solitary pulmonary nodule] Onset: 05-06-2023 Episodic Residual codes; unclassified (4 sources) Hallucinations; Translations: [Hallucinations, unspecified] 06-10-2024 Episodic Schizophrenia and other psychotic disorders (20 sources) Paranoid schizophrenia; Translations: [Paranoid schizophrenia] Onset: 06-23-2024 06-07-2022 Chronic Schizophrenia and other psychotic disorders (6 sources) Brief psychotic disorder; Translations: [Acute psychosis] 06-07-2022 Episodic Screening and history of mental health and substance abuse codes (8 sources) H/O: schizophrenia; Translations: [Personal history of other mental and behavioral disorders] 01-08-2022 Episodic Substance-related disorders (4 sources) Cannabis abuse; Translations: [Cannabis use, unspecified, uncomplicated] 05-04-2024 Episodic Unclassified (1 source) Unknown / UNK(Unknown) Onset: 07-17-2017 Past or Other Problems Problem Classification Problem Date Documented Date Episodic/Chronic Other screening for suspected conditions (not mental disorders or infectious disease) (7 sources) Prolonged QT interval; Translations: [Abnormal electrocardiogram [ECG] [EKG]] Onset: 11-04-2024 11-02-2024 Episodic Suicide and intentional self-inflicted injury (12 sources) Poisoning by unspecified drugs, medicaments and biological substances, intentional self-harm, initial encounter; Translations: [Intentional overdose] Onset: 11-04-2024 11-02-2024 Episodic Unclassified (1 source) K22.10 Onset: 07-17-2017 Results Test Name Value Interpretation Reference Range Facility Absolute lymphocyte countOrd ered By: Rodriguez Beavers on 04-22-2025 Lymphocytes Auto (Unsp spec) [#/Vol] 2.83 10*3/uL 0.83-4.51 [facility] Absolute neutrophil countOrd ered By: Rodriguez Beavers on 04-22-2025 Neutrophils (Bld) [#/Vol] 10.4 10*3/uL High 2.0-7.7 [facility] Anion gap in Serum or Plasma Ordered By: Rodriguez Beavers on 04-22-2025 Anion gap [Moles/Vol] 17 mmol/L High 5-15 [facility] Automated lymphocyte count a s percentage of total leukocytesOrdered By: Rodriguez Beavers on 04-22-2025 Lymphocytes/100 WBC Auto (Unsp spec) 19.5 % 19-41 [facility] BUN/creatinine ratioOrdered By: Rodriguez Beavers on 04-22-2025 Urea nitrogen/Creatinine [Mass ratio] 13.1 mg/mg 10-20 [facility] Basophil percentageOrdered B y: Rodriguez Beavers on 04-22-2025 Basophils/100 WBC (Bld) 0.4 % 0-1 [facility] Bilirubin Test strip Ql (U)O rdered By: Rodriguez Beavers on 04-22-2025 Bilirubin Ql (U) 1 mg/dL High Negative [facility] Comment on above: COLOR OF URINE MAY A FFECT DIPSTICK RESULTS. Bilirubin, totalOrdered By: Rodriguez Beavers on 04-22-2025 Bilirubin [Mass/Vol] 0.42 mg/dL 0.00-1.30 [facility] CBC W/Diff, Automatedon 04-04 Absolute Lymph 2.83 X10 3/uL Normal 0.83-4.51 [facility] Comment on above: Performed By: #### L 500.4050, L501.2450, L100.0100 ####[facility] [address] [place], [address] Absolute Neut 10.4 X10 3/uL High 2.0-7.7 [facility] Comment on above: Performed By: #### L 500.4050, L501.2450, L100.0100 ####[facility] [address] [place], [address] Basophils/100 WBC (Bld) 0.4 % Normal 0-1 [facility] Comment on above: Performed By: #### L 500.4050, L501.2450, L100.0100 ####[facility] [address] [place], [address] Eosinophils/100 WBC (Bld) 0.3 % Normal 0-5 [facility] Comment on above: Performed By: #### L 500.4050, L501.2450, L100.0100 ####[facility] [address] [place], [address] Erythrocyte distribution width (RBC) [Ratio] 12.5 % Normal 11.6-14.6 [facility] Comment on above: Performed By: #### L 500.4050, L501.2450, L100.0100 ####[facility] [address] [place], [address] Hematocrit (Bld) [Volume fraction] 46.0 % Normal 40-54 [facility] Comment on above: Performed By: #### L 500.4050, L501.2450, L100.0100 ####[facility] [address] [place], [address] Hemoglobin (Bld) [Mass/Vol] 15.5 g/dL Normal 13.0-16. 5 [facility] Comment on above: Performed By: #### L 500.4050, L501.2450, L100.0100 ####[facility] [address] [place], [address] IG% 0.500 Normal 0.0-0.9 [facility] Comment on above: Result Comment: IG% - Immature Granulocytes (promyelocytes, myelocytes and metamyelocytes) > 1% indicates that a LEFT SHIFT is Present. Performed By: #### L 500.4050, L501.2450, L100.0100 ####[facility] [address] [place], [address] Lymphocytes/100 WBC (Bld) 19.5 % Normal 19-41 [facility] Comment on above: Performed By: #### L 500.4050, L501.2450, L100.0100 ####[facility] [address] [place], [address] MCH (RBC) [Entitic mass] 31.6 pg Normal 27.0-32.0 [facility] Comment on above: Performed By: #### L 500.4050, L501.2450, L100.0100 ####[facility] [address] [place], [address] MCHC (RBC) [Mass/Vol] 33.7 g/dL Normal 32-36 [facility] Comment on above: Performed By: #### L 500.4050, L501.2450, L100.0100 ####[facility] [address] [place], [address] MCV (RBC) [Entitic vol] 93.7 fL Normal 80-94 [facility] Comment on above: Performed By: #### L 500.4050, L501.2450, L100.0100 ####[facility] [address] [place], [address] Monocytes/100 WBC (Bld) 7.8 % Normal 0-10 [facility] Comment on above: Performed By: #### L 500.4050, L501.2450, L100.0100 ####[facility] [address] [place], [address] Neutrophils/100 WBC (Bld) 71.5 % High 47-70 [facility] Comment on above: Performed By: #### L 500.4050, L501.2450, L100.0100 ####[facility] [address] [place], [address] Nucleated RBC (Bld) [#/Vol] 0 10*3/uL Normal 0-5 [facility] Comment on above: Performed By: #### L 500.4050, L501.2450, L100.0100 ####[facility] [address] [place], [address] Platelet mean volume (Bld) [Entitic vol] 9.9 fL Normal 6.2-12.0 [facility] Comment on above: Performed By: #### L 500.4050, L501.2450, L100.0100 ####[facility] [address] [place], [address] Platelets (Bld) [#/Vol] 273 10*3/uL Normal 150-450 [facility] Comment on above: Performed By: #### L 500.4050, L501.2450, L100.0100 ####[facility] [address] [place], [address] RBC (Bld) [#/Vol] 4.91 10*6/uL Normal 4.6-6.2 [facility] Comment on above: Performed By: #### L 500.4050, L501.2450, L100.0100 ####[facility] [address] [place], [address] RDW SD 43.3 fl Normal 35.1-43.9 [facility] Comment on above: Performed By: #### L 500.4050, L501.2450, L100.0100 ####[facility] [address] [place], [address] WBC (Bld) [#/Vol] 14.6 10*3/uL High 4.4-11.0 [facility] Comment on above: Performed By: #### L 500.4050, L501.2450, L100.0100 ####[facility] [address] [place], [address] Carbon dioxide, total [Moles /volume] in Central venous bloodOrdered By: Rodriguez Beavers on 04-22-2025 CO2 [Moles/Vol] 30.5 mmol/L 21.0-32.0 [facility] Chloride assayOrdered By: Fer Beavers on 04-22-2025 Chloride [Moles/Vol] 93 mmol/L Low 98-108 [facility] Comprehensive Metabolic Prof ilon 04-22-2025 Albumin [Mass/Vol] 4.2 g/dL Normal 3.5-5.0 [facility] Comment on above: Performed By: #### L 500.4050, L501.2450, L100.0100 ####[facility] [address] [place], [address] Albumin/Globulin [Mass ratio] 1.7 {ratio} Normal 0.9-2.4 [facility] Comment on above: Performed By: #### L 500.4050, L501.2450, L100.0100 ####[facility] [address] [place], [address] ALK PHOS 67 U/L Normal 40-129 [facility] Comment on above: Performed By: #### L 500.4050, L501.2450, L100.0100 ####[facility] [address] [place], [address] ALT [Catalytic activity/Vol] 10 U/L Normal <=46 [facility] Comment on above: Performed By: #### L 500.4050, L501.2450, L100.0100 ####[facility] [address] [place], [address] AST [Catalytic activity/Vol] 12 U/L Normal <=37 [facility] Comment on above: Performed By: #### L 500.4050, L501.2450, L100.0100 ####[facility] [address] [place], [address] Bilirubin [Mass/Vol] 0.42 mg/dL Normal 0.00-1.30 [facility] Comment on above: Performed By: #### L 500.4050, L501.2450, L100.0100 ####[facility] [address] [place], [address] BUN/CRE 13.1 RATIO Normal 10-20 [facility] Comment on above: Performed By: #### L 500.4050, L501.2450, L100.0100 ####[facility] [address] [place], [address] Calcium [Mass/Vol] 8.9 mg/dL Normal 7.6-11.0 [facility] Comment on above: Performed By: #### L 500.4050, L501.2450, L100.0100 ####[facility] [address] [place], [address] Chloride [Moles/Vol] 93 mmol/L Low 98-108 [facility] Comment on above: Performed By: #### L 500.4050, L501.2450, L100.0100 ####[facility] [address] [place], [address] CO2 [Moles/Vol] 30.5 mmol/L Normal 21.0-32.0 [facility] Comment on above: Performed By: #### L 500.4050, L501.2450, L100.0100 ####[facility] [address] [place], [address] Creatinine [Mass/Vol] 1.30 mg/dL High 0.70-1.20 [facility] Comment on above: Performed By: #### L 500.4050, L501.2450, L100.0100 ####[facility] [address] [place], [address] ECRCL 106.18 ml/min Normal 50-250 [facility] Comment on above: Performed By: #### L 500.4050, L501.2450, L100.0100 ####[facility] [address] [place], [address] GAP 17 High 5-15 [facility] Comment on above: Performed By: #### L 500.4050, L501.2450, L100.0100 ####[facility] [address] [place], [address] GFR/1.73 sq M.predicted among non-blacks MDRD (S/P/Bld) [Vol rate/Area] 74 mL/min/{1.73_m2} Normal >60 [facility] Comment on above: Result Comment: mL/m in/1.73m2 CKD-EPI Creatinine Equation (2020) Performed By: #### L 500.4050, L501.2450, L100.0100 ####[facility] [address] [place], [address] Globulin (S) [Mass/Vol] 2.4 g/dL Normal 2.2-4.2 [facility] Comment on above: Performed By: #### L 500.4050, L501.2450, L100.0100 ####[facility] [address] [place], [address] Glucose [Mass/Vol] 135 mg/dL High 70-99 [facility] Comment on above: Performed By: #### L 500.4050, L501.2450, L100.0100 ####[facility] [address] [place], [address] Potassium [Moles/Vol] 2.6 mmol/L Invalid Interpretation Code 3.3-5.1 [facility] Comment on above: Result Comment: Crit ical Result(s) Called at: 0902 04/22/2025 by: YASMINE SOLANO??Results read back by same. Performed By: #### L 500.4050, L501.2450, L100.0100 ####[facility] [address] [place], [address] Sodium [Moles/Vol] 140 mmol/L Normal 133-145 [facility] Comment on above: Performed By: #### L 500.4050, L501.2450, L100.0100 ####[facility] [address] [place], [address] T PROT 6.7 g/dL Normal 5.9-8.4 [facility] Comment on above: Performed By: #### L 500.4050, L501.2450, L100.0100 ####[facility] [address] [place], [address] Urea nitrogen [Mass/Vol] 17 mg/dL Normal 4-19 [facility] Comment on above: Performed By: #### L 500.4050, L501.2450, L100.0100 ####[facility] [address] [place], [address] Emergency Department Summary on 04-22-2025 Emergency Department Summary [facility] Medical Records Department [address] [place] [address] Emergency Department Summary 04/22/25 MR#: [id number] Acct: [id number] Name: AIMEE DUCKWORTH Rep #: [id number] : 1990 34 From: Rodriguez Beavers DO PCP: Dr. Kamron Erickson MD Status:DEP ER Location: ED HPI History of Present Illness Chief Complaint: Abd Pain PFSH PFSH Medical History Spinal stenosis Schizophrenia Depression Anxiety Smoker Schizophrenia Migraines Asthma Home Medications ???Medication ???Instructions [...] mg PO QHS 11/02/24 Unknown Hist ory diclofenac sodium 75 mg 75 mg PO BID 04/21/25 Unknown Hist ory tablet,delayed release haloperidol 5 mg tablet 5 mg PO BID 04/21/25 Unknown Histo ry hydroxyzine HCl 50 mg tablet 50 mg PO TID 04/21/25 Unknown Hist ory oxycodone-acetaminophe n 5 mg-325 1 tab PO Q6H PRN pain 3 days #12 0 04/21/25 Unknown Rx mg tablet (Percocet) tabs prochlorperazine maleate 10 mg 10 mg PO TID PRN nausea and Unknown Rx tablet (Compazine) vomiting 7 days #21 tabs promethazine 25 mg tablet 25 mg PO Q6H PRN nausea and Unknown Rx vomiting 7 days #30 tabs Allergy/AdvReac Type Severity Reaction Status Date / Time Sulfa (Sulfonamide Allergy Unknown Verified 04/22/25 07:38 Antibiotics) sulfisoxazole (From Allergy Hives Verified 04/22/25 07:38 Gantrisin) Social History (System 06/10/24 @ 07:12 by Fernanda Roblero) household members: family Smoking Status: Current every day smoker tobacco type: cigarettes and e-cigarettes EXAM Physical Exam Const Vital Signs: 04/22/25 07:38 04/22/25 09:38 04/22/25 11:00 Temperature 98.1 F Temperature Source Temporal Pulse Rate 117 H 97 68 Respiratory Rate 14 16 Blood Pressure 180/100 H 163/114 H 141/93 H Blood Pressure Mean 126 130 109 Pulse Ox 98 99 97 Oxygen Delivery Method Room Air Room Air Room Air 04/22/25 11:54 Temperature 98.1 F Temperature Source Pulse Rate 68 Respiratory Rate 16 Blood Pressure 152/94 H Blood Pressure Mean 113 Pulse Ox 97 Oxygen Delivery Method MDM MDM MDM Narrative Medical decision making narrative: HISTORY OF PRESENT ILLNESS: Chief complaint: Abdominal pain 34-year-old male history of schizophrenia, anxiety, depression presents abdominal pain. Denies any abdominal pain now but notes nausea and vomiting this morning. 4 episodes of nonbloody bilious vomitus was noted. Notes diarrhea as well. Denies recent travel, antibiotics or sick contacts. Notes he smokes marijuana. Notes he typically smokes as much as he can however has not smoked recently given nausea and vomiting. REVIEW OF SYSTEMS: Pertinent positives: Abdominal pain, nausea, vomiting Pertinent negatives: Hematemesis, melena or hematochezia PHYSICAL EXAM: Nursing triage notes reviewed, Vital signs reviewed Constitutional: please see mdm HENT: MMM Eyes: Pupils equal round and reactive to light, Extraocular muscles intact Neck: No stridor, no JVD, full neck ROM Lungs: Clear to auscultation, No wheezing or rales. No increased work of breathing, no conversational dyspnea, no accessory muscle use, no nasal flaring. No respiratory distress noted Heart: Regular rate and rhythm, No murmurs, No rubs and No gallops, 2+ distal pulses (radial, femoral, posterior tibial) in all extremities Abdomen: Soft, there is no tenderness, rigidity, rebound or guarding, no obvious peritoneal signs, no palpable pulsatile abdominal masses, no auscultated abdominal bruit : No CVAT Extremities: No edema Neuro: No new focal neurological deficits, cranial nerves II through XII intact, 5/5 strength in all present extremities. Intact sensation to light touch in all present extremities, 2+ reflexes bilateral patella tendons. Skin: No rash or lesions noted MEDICAL DECISION MAKING: Chief Complaint: please see HPI External records reviewed: Reviewed CT scan abdomen pelvis from yesterday (04/21/2025) showed mild hepatic steatosis, gastritis, enteritis, colitis Factors affecting care: as per HPI Social det (more content not included)... Normal [facility] Eosinophil percentageOrdered By: Rodriguez Beavers on 04-22-2025 Eosinophils/100 WBC (Bld) 0.3 % 0-5 [facility] Erythrocyte distribution wid th ratioOrdered By: Rodriguez Beavers on 04-22-2025 Erythrocyte distribution width (RBC) [Ratio] 12.5 % 11.6-14.6 [facility] Erythrocyte distribution wid th standard deviationOrdered By: Rodriguez Beavers on 04-22-2025 Erythrocyte distribution width (RBC) [Ratio] 43.3 fl 35.1-43.9 [facility] Glomerular filtration rate ( GFR) estimation/1.73 sq m using serum, plasma, or whole bOrdered By: Rodriguez Beavers on 04-22-2025 GFR/1.73 sq M.predicted among non-blacks MDRD (S/P/Bld) [Vol rate/Area] 74 mL/min/{1.73_m2} >60 [facility] Comment on above: mL/min/1.73m2 CKD-EP I Creatinine Equation (2020) Hematocrit Auto (Bld) [Volum e fraction]Ordered By: Rodriguez Beavers on 04-22-2025 Hematocrit (Bld) [Volume fraction] 46.0 % 40-54 [facility] Hemoglobin measurementOrdere d By: Rodriguez Beavers on 04-22-2025 Hemoglobin (Bld) [Mass/Vol] 15.5 g/dL 13.0-16. 5 [facility] Immature granulocytes/100 WB C Auto (Bld)Ordered By: Rodriguez Beavers on 04-22-2025 Immature granulocytes/100 WBC (Bld) 0.500 % 0.0-0.9 [facility] Comment on above: IG% - Immature Granu locytes (promyelocytes, myelocytes and metamyelocytes) > 1% indicates that a LEFT SHIFT is Present. Ketones Test strip Ql (U)Ord ered By: Rodriguez Beavers on 04-22-2025 Ketones Ql (U) 150 mg/dl Negative [facility] Comment on above: CRITICAL VALUE *H Laboratory - Chemistry and C hemistry - challengeOrdered By: Rodriguez Beavers on 04-22-2025 AST [Catalytic activity/Vol] 12 U/L <38 [facility] Lipaseon 04-22-2025 Lipase [Catalytic activity/Vol] 37 U/L Normal 13-75 [facility] Comment on above: Result Comment: Heavenly wolff note: LIPASE revised reference range effective 22. New Lipase methodology. Expected to produce lower values than the previous assay method. NEW Reference Range: 13 - 75 U/L Performed By: #### L 500.4050, L501.2450, L100.0100 ####[facility] [address] [place], [address] Lipase measurementOrdered By : Rodriguez Beavers on 04-22-2025 Lipase [Catalytic activity/Vol] 37 U/L 13-75 [facility] Comment on above: Please note:LIPASE r evised reference range effective 22. New Lipase methodology. Expected to produce lower values than the previous assay method. NEW Reference Range: 13 - 75 U/L MCV (mean corpuscular volume ) determinationOrdered By: Rodriguez Beavers on 04-22-2025 MCV (RBC) [Entitic vol] 93.7 fL 80-94 [facility] Mean corpuscular hemoglobin (MCH) determinationOrdered By: Rodriguez Beavers on 04-22-2025 MCH (RBC) [Entitic mass] 31.6 pg 27.0-32.0 [facility] Mean corpuscular hemoglobin concentration (MCHC) determinationOrdered By: Rodriguez Beavers on 04-22-2025 MCHC (RBC) [Mass/Vol] 33.7 g/dL 32-36 [facility] Mean platelet volume determi nationOrdered By: Rodriguez Beavers on 04-22-2025 Platelet mean volume (Bld) [Entitic vol] 9.9 fL 6.2-12.0 [facility] Microscopic analysis of urin e for red blood cells (RBC)Ordered By: Rodriguez Beavers on 04-22-2025 Microscopic analysis of urine for red blood cells (RBC) 0 SEEN /hpf 0-5 [facility] Monocyte percentageOrdered B y: Rodriguez Beavers on 04-22-2025 Monocytes/100 WBC (Bld) 7.8 % 0-10 [facility] Mucus LM Ql (Urine sed)Order ed By: Rodriguez Beavers on 04-22-2025 Mucus Ql (Urine sed) 1+ /hpf [facility] Neutrophil percentageOrdered By: Rodriguez Beavers on 04-22-2025 Neutrophils/100 WBC (Bld) 71.5 % High 47-70 [facility] Nitrite Test strip Ql (U)Ord ered By: Rodriguez Beavers on 04-22-2025 Nitrite Ql (U) Negative Negative [facility] Nucleated red blood cell per centageOrdered By: Rodriguez Beavers on 04-22-2025 Nucleated RBC/100 WBC (Bld) [Ratio] 0 % 0-5 [facility] Platelet countOrdered By: Fer Beavers on 04-22-2025 Platelets (Bld) [#/Vol] 273 10*3/uL 150-450 [facility] Potassium measurement (mass/ volume)Ordered By: Rodriguez Beavers on 04-22-2025 Potassium (Unsp spec) [Mass/Vol] 2.6 mmol/L Critically low 3.3-5.1 [facility] Comment on above: Critical Result(s) C alled at: 0902 04/22/2025 by: YASMINE SOLANO Results read back by same. Protein Test strip Ql (U)Ord ered By: Rodriguez Beavers on 04-22-2025 Protein Ql (U) 100 mg/dl High Negative [facility] RBC Auto (Bld) [#/Vol]Ordere d By: Rodriguez Beavers on 04-22-2025 RBC (Bld) [#/Vol] 4.91 10*6/uL 4.6-6.2 [facility] Serum creatinine measurement (mass/volume)Ordered By: Rodriguez Beavers on 04-22-2025 Creatinine [Mass/Vol] 1.30 mg/dL High 0.70-1.20 [facility] Serum globulin measurementOr dered By: Rodriguez Beavers on 04-22-2025 Globulin (S) [Mass/Vol] 2.4 g/dL 2.2-4.2 [facility] Serum glucose measurement (m ass/volume)Ordered By: Rodriguez Beavers on 04-22-2025 Glucose [Mass/Vol] 135 mg/dL High 70-99 [facility] Serum or plasma alanine comer otransferase (ALT) measurementOrdered By: Rodriguez Beavers on 04-22-2025 ALT [Catalytic activity/Vol] 10 U/L <47 [facility] Serum or plasma albumin mauro urement (mass/volume)Ordered By: Rodriguez Beavers on 04-22-2025 Albumin [Mass/Vol] 4.2 g/dL 3.5-5.0 [facility] Serum or plasma albumin/glob ulin mass ratioOrdered By: Rodriguez Beavers on 04-22-2025 Albumin/Globulin [Mass ratio] 1.7 {ratio} 0.9-2.4 [facility] Serum or plasma alkaline fatuma sphatase measurementOrdered By: Rodriguez Beavers on 04-22-2025 ALP [Catalytic activity/Vol] 67 U/L 40-129 [facility] Serum or plasma calcium mauro urement (mass/volume)Ordered By: Rodriguez Beavers on 04-22-2025 Calcium [Mass/Vol] 8.9 mg/dL 7.6-11.0 [facility] Serum or plasma urea nitroge n measurement (mass/volume)Ordered By: Rodriguez Beavers on 04-22-2025 Urea nitrogen [Mass/Vol] 17 mg/dL 4-19 [facility] Sodium levelOrdered By: Melony Beavers on 04-22-2025 Sodium [Moles/Vol] 140 mmol/L 133-145 [facility] Squamous epithelial cells de tection in urine sediment by light microscopyOrdered By: Rodriguez Beavers on 04-22-2025 Epithelial cells.squamous LM Ql (Urine sed) 0 SEEN /hpf 0-5 [facility] Total proteinOrdered By: The lara Beavers on 04-22-2025 Protein [Mass/Vol] 6.7 g/dL 5.9-8.4 [facility] Urinalysis, Completeon 04-22 Mucus Ql (Urine sed) 1+ /hpf Normal [facility] Comment on above: Order Comment: CRITI RICARDA VALUE CALLED TO YASMINE MYERS04/22/2520 Mary Carmen Jay.RESULTS READ BACK BY SAME.MANAGER LAND TO SPECIFY Performed By: #### L 400.0001 ####[facility] [address] [place], [address] WBC 5-10 SEEN Normal 0-5 [facility] Comment on above: Order Comment: CRITI RICARDA VALUE CALLED TO YASMINE [facility]04/22/2520 Mary Carmen Jay.RESULTS READ BACK BY SAME.MANAGER LAND TO SPECIFY Performed By: #### L 400.0001 ####[facility] [address] [place], [address] BACTERIA 0 SEEN Normal None Seen [facility] Comment on above: Order Comment: CRITI RICARDA VALUE CALLED TO YASMINE [facility]04/22/2520 Mary Carmen Jay.RESULTS READ BACK BY SAME.MANAGER LAND TO SPECIFY Performed By: #### L 400.0001 ####[facility] [address] [place], [address] EPI,SQUAMOUS 0 SEEN Normal 0-5 [facility] Comment on above: Order Comment: CRITI RICARDA VALUE CALLED TO YASMINE [facility]04/22/2520 Mary Carmen Jay.RESULTS READ BACK BY SAME.MANAGER LAND TO SPECIFY Performed By: #### L 400.0001 ####[facility] [address] [place], [address] RBC 0 SEEN Normal 0-5 [facility] Comment on above: Order Comment: CRITI RICARDA VALUE CALLED TO YASMINE MYERS04/22/25 0920 Mary Carmen Jay.RESULTS READ BACK BY SAME.MANAGER LAND TO SPECIFY Performed By: #### L 400.0001 ####[facility] [address] [place], [address] Urine clarityOrdered By: Isac Beavers on 04-22-2025 Clarity (U) Clear Clear [facility] Urine color determinationOrd ered By: Rodriguez Beavers on 04-22-2025 Color (U) Yellow Yellow [facility] Urine glucose detectionOrder ed By: Rodriguez Beavers on 04-22-2025 Glucose Ql (U) Normal mg/dl Normal [facility] Urine leukocyte esterase det ection by dipstickOrdered By: Rodriguez Beavers on 04-22-2025 Leukocyte esterase Test strip Ql (U) 25 /ul High Negative [facility] Urine pHOrdered By: Rodriguez walker on 04-22-2025 pH (U) 6.5 [pH] 5.0 - 8.0 [facility] Urine sediment bacteria coun t by microscopy (number/high power field)Ordered By: Rodriguez Beavers on 04-22-2025 Bacteria LM.HPF (Urine sed) [#/Area] 0 /[HPF] None Seen [facility] Urine specific gravity measu rementOrdered By: Rodriguez Beavers on 04-22-2025 Specific gravity (U) [Rel density] 1.015 1.002-1.03 0 [facility] Urine urobilinogen measureme ntOrdered By: Rodriguez Beavers on 04-22-2025 Urobilinogen Ql (U) 4 mg/dl High Normal [facility] White blood cell (WBC) count Ordered By: Rodriguez Beavers on 04-22-2025 WBC (Bld) [#/Vol] 14.6 10*3/uL High 4.4-11.0 [facility] White blood cell countOrdere d By: Rodriguez Beavers on 04-22-2025 White blood cell count 5-10 SEEN /hpf 0-5 [facility] Abdomen/Pelvis W IV Cont ONL Yon 04-21-2025 Abdomen/Pelvis W IV Cont ONLY [facility] [address] [place], [place] [id number] Abdomen/Pelvis W IV Cont ONLY MR#: [id number] Acct: [id number] Name: AIMEE DUCKWORTH Rep #: [id number] : 1990 M 34 From: Murphy henderson MD PCP: Dr. Kamron Erickson MD Status: REG ER Study: Abdomen/Pelvis W IV Cont ONLY Date of Exam: Exam# [id number] Ordering Dr: Diomedes York DO PROCEDURE: ABDOMEN/PELVIS W IV CONT [...] no left renal mass. There are no left renal calculi. There is no left hydronephrosis. Normal [...] pneumatosis coli. Mild diffuse spondylosis. Reading Location: [place] [address] CC: Dr. Kamron Erickson MD; Diomedes York DO [employer]: Signed Normal [facility] Absolute lymphocyte countOrd ered By: Diomedes York on 04-21-2025 Lymphocytes Auto (Unsp spec) [#/Vol] 1.75 10*3/uL 0.83-4.51 [facility] Absolute neutrophil countOrd ered By: Diomedes York on 04-21-2025 Neutrophils (Bld) [#/Vol] 11.4 10*3/uL High 2.0-7.7 [facility] Anion gap in Serum or Plasma Ordered By: Diomedes York on 04-21-2025 Anion gap [Moles/Vol] 17 mmol/L High 5-15 [facility] Automated lymphocyte count a s percentage of total leukocytesOrdered By: Diomedes York on 04-21-2025 Lymphocytes/100 WBC Auto (Unsp spec) 12.5 % Low 19-41 [facility] BUN/creatinine ratioOrdered By: Diomedes York on 04-21-2025 Urea nitrogen/Creatinine [Mass ratio] 7.2 mg/mg Low 10-20 [facility] Basic Metabolic Profile (BMP )on 04-21-2025 BUN/CRE 7.2 RATIO Low 10-20 [facility] Comment on above: Performed By: #### L 500.2500, L500.3400, L100.0100, L501.2450 ####[facility] [address] [place], [address] Calcium [Mass/Vol] 9.4 mg/dL Normal 7.6-11.0 [facility] Comment on above: Performed By: #### L 500.2500, L500.3400, L100.0100, L501.2450 ####[facility] [address] [place], [address] Chloride [Moles/Vol] 104 mmol/L Normal 98-108 [facility] Comment on above: Performed By: #### L 500.2500, L500.3400, L100.0100, L501.2450 ####[facility] [address] [place], [address] CO2 [Moles/Vol] 23.4 mmol/L Normal 21.0-32.0 [facility] Comment on above: Performed By: #### L 500.2500, L500.3400, L100.0100, L501.2450 ####[facility] [address] [place], [address] Creatinine [Mass/Vol] 1.44 mg/dL High 0.70-1.20 [facility] Comment on above: Performed By: #### L 500.2500, L500.3400, L100.0100, L501.2450 ####[facility] [address] [place], [address] ECRCL 96.43 ml/min Normal 50-250 [facility] Comment on above: Performed By: #### L 500.2500, L500.3400, L100.0100, L501.2450 ####[facility] [address] [place], [address] GAP 17 High 5-15 [facility] Comment on above: Performed By: #### L 500.2500, L500.3400, L100.0100, L501.2450 ####[facility] [address] [place], [address] GFR/1.73 sq M.predicted among non-blacks MDRD (S/P/Bld) [Vol rate/Area] 65 mL/min/{1.73_m2} Normal >60 [facility] Comment on above: Result Comment: mL/m in/1.73m2 CKD-EPI Creatinine Equation (2020) Performed By: #### L 500.2500, L500.3400, L100.0100, L501.2450 ####[facility] [address] [place], [address] Glucose [Mass/Vol] 125 mg/dL High 70-99 [facility] Comment on above: Performed By: #### L 500.2500, L500.3400, L100.0100, L501.2450 ####[facility] [address] [place], [address] Potassium [Moles/Vol] 3.9 mmol/L Normal 3.3-5.1 [facility] Comment on above: Performed By: #### L 500.2500, L500.3400, L100.0100, L501.2450 ####[facility] [address] [place], [address] Sodium [Moles/Vol] 144 mmol/L Normal 133-145 [facility] Comment on above: Performed By: #### L 500.2500, L500.3400, L100.0100, L501.2450 ####[facility] [address] [place], [address] Urea nitrogen [Mass/Vol] 10 mg/dL Normal 4-19 [facility] Comment on above: Performed By: #### L 500.2500, L500.3400, L100.0100, L501.2450 ####[facility] [address] [place], [address] Basophil percentageOrdered B y: Diomedes York on 04-21-2025 Basophils/100 WBC (Bld) 0.4 % 0-1 [facility] Bilirubin directOrdered By: Diomedes York on 04-21-2025 Bilirubin.direct [Mass/Vol] 0.18 mg/dL 0.00-0.3 0 [facility] Bilirubin, totalOrdered By: Diomedes York on 04-21-2025 Bilirubin [Mass/Vol] 0.42 mg/dL 0.00-1.30 [facility] CBC W/Diff, Automatedon 04-04 Absolute Lymph 1.75 X10 3/uL Normal 0.83-4.51 [facility] Comment on above: Performed By: #### L 500.2500, L500.3400, L100.0100, L501.2450 ####[facility] [address] [place], [address] Absolute Neut 11.4 X10 3/uL High 2.0-7.7 [facility] Comment on above: Performed By: #### L 500.2500, L500.3400, L100.0100, L501.2450 ####[facility] [address] [place], [address] Basophils/100 WBC (Bld) 0.4 % Normal 0-1 [facility] Comment on above: Performed By: #### L 500.2500, L500.3400, L100.0100, L501.2450 ####[facility] [address] [place], [address] Eosinophils/100 WBC (Bld) 0.2 % Normal 0-5 [facility] Comment on above: Performed By: #### L 500.2500, L500.3400, L100.0100, L501.2450 ####[facility] [address] [place], [address] Erythrocyte distribution width (RBC) [Ratio] 12.3 % Normal 11.6-14.6 [facility] Comment on above: Performed By: #### L 500.2500, L500.3400, L100.0100, L501.2450 ####[facility] [address] [place], [address] Hematocrit (Bld) [Volume fraction] 48.7 % Normal 40-54 [facility] Comment on above: Performed By: #### L 500.2500, L500.3400, L100.0100, L501.2450 ####[facility] [address] [place], [address] Hemoglobin (Bld) [Mass/Vol] 16.4 g/dL Normal 13.0-16. 5 [facility] Comment on above: Performed By: #### L 500.2500, L500.3400, L100.0100, L501.2450 ####[facility] [address] [place], [address] IG% 0.400 Normal 0.0-0.9 [facility] Comment on above: Result Comment: IG% - Immature Granulocytes (promyelocytes, myelocytes and metamyelocytes) > 1% indicates that a LEFT SHIFT is Present. Performed By: #### L 500.2500, L500.3400, L100.0100, L501.2450 ####[facility] [address] [place], [address] Lymphocytes/100 WBC (Bld) 12.5 % Low 19-41 [facility] Comment on above: Performed By: #### L 500.2500, L500.3400, L100.0100, L501.2450 ####[facility] [address] [place], [address] MCH (RBC) [Entitic mass] 31.5 pg Normal 27.0-32.0 [facility] Comment on above: Performed By: #### L 500.2500, L500.3400, L100.0100, L501.2450 ####[facility] [address] [place], [address] MCHC (RBC) [Mass/Vol] 33.7 g/dL Normal 32-36 [facility] Comment on above: Performed By: #### L 500.2500, L500.3400, L100.0100, L501.2450 ####[facility] [address] [place], [address] MCV (RBC) [Entitic vol] 93.7 fL Normal 80-94 [facility] Comment on above: Performed By: #### L 500.2500, L500.3400, L100.0100, L501.2450 ####[facility] [address] [place], [address] Monocytes/100 WBC (Bld) 5.4 % Normal 0-10 [facility] Comment on above: Performed By: #### L 500.2500, L500.3400, L100.0100, L501.2450 ####[facility] [address] [place], [address] Neutrophils/100 WBC (Bld) 81.1 % High 47-70 [facility] Comment on above: Performed By: #### L 500.2500, L500.3400, L100.0100, L501.2450 ####[facility] [address] [place], [address] Nucleated RBC (Bld) [#/Vol] 0 10*3/uL Normal 0-5 [facility] Comment on above: Performed By: #### L 500.2500, L500.3400, L100.0100, L501.2450 ####[facility] [address] [place], [address] Platelet mean volume (Bld) [Entitic vol] 9.9 fL Normal 6.2-12.0 [facility] Comment on above: Performed By: #### L 500.2500, L500.3400, L100.0100, L501.2450 ####[facility] [address] [place], [address] Platelets (Bld) [#/Vol] 372 10*3/uL Normal 150-450 [facility] Comment on above: Performed By: #### L 500.2500, L500.3400, L100.0100, L501.2450 ####[facility] [address] [place], [address] RBC (Bld) [#/Vol] 5.20 10*6/uL Normal 4.6-6.2 [facility] Comment on above: Performed By: #### L 500.2500, L500.3400, L100.0100, L501.2450 ####[facility] [address] [place], [address] RDW SD 42.9 fl Normal 35.1-43.9 [facility] Comment on above: Performed By: #### L 500.2500, L500.3400, L100.0100, L501.2450 ####[facility] [address] [place], [address] WBC (Bld) [#/Vol] 14.0 10*3/uL High 4.4-11.0 [facility] Comment on above: Performed By: #### L 500.2500, L500.3400, L100.0100, L501.2450 ####[facility] [address] [place], [address] Carbon dioxide, total [Moles /volume] in Central venous bloodOrdered By: Diomedes York on 04-21-2025 CO2 [Moles/Vol] 23.4 mmol/L 21.0-32.0 [facility] Chloride assayOrdered By: Violet York on 04-21-2025 Chloride [Moles/Vol] 104 mmol/L 98-108 [facility] Emergency Department Summary on 04-21-2025 Emergency Department Summary [facility] Medical Records Department [address] [place] [address] Emergency Department Summary 04/21/25 MR#: [id number] Acct: [id number] Name: AIMEE DUCKWORTH Rep #: [id number] : 1990 34 From: Diomedes York DO PCP: Dr. Kamron Erickson MD Status:REG ER Location: ED HPI History of Present Illness Chief Complaint: Nausea/Vomiting Informant: patient and parent Narrative Narrative: Patient is a 34 year old male with past medical history of anxiety depression and schizophrenia. He states that over the last 24 to 36 hours he has had 10-15 bouts of nausea and vomiting with loose stool/diarrhea. [...] secondary to this he presents for evaluation. [facility] Medical History Spinal stenosis Schizophrenia Depression Anxiety Smoker Schizophrenia Migraines Asthma Home Medications ???Medication ???Instructions ???Recorded ???Last Taken ???Type divalproex 500 mg tablet,delayed 1,000 mg PO BID 06/02/24 11/02/24 History release albuterol sulfate 90 mcg/actuation 1 - 2 puff inhalation Q4H PRN co [facility] 11/02/24 Unknown History aerosol inhaler bupropion HCl [...] mg PO QHS 11/02/24 Unknown Hist ory diclofenac sodium 75 mg 75 mg PO BID 04/21/25 Unknown Hist ory tablet,delayed release haloperidol 5 mg tablet 5 mg PO BID 04/21/25 Unknown Histo ry hydroxyzine HCl 50 mg tablet 50 mg PO TID 04/21/25 Unknown Hist ory oxycodone-acetaminophe n 5 mg-325 1 tab PO Q6H PRN pain 3 days #12 0 04/21/25 Unknown Rx mg tablet (Percocet) tabs prochlorperazine maleate 10 mg 10 mg PO TID PRN nausea and Unknown Rx tablet (Compazine) vomiting 7 days #21 tabs Allergy/AdvReac Type Severity Reaction Status Date / Time Sulfa (Sulfonamide Allergy Unknown Verified 04/21/25 02:06 Antibiotics) sulfisoxazole (From Allergy Hives Verified 04/21/25 02:06 Gantrisin) Social History (System 06/10/24 @ 07:12 by Fernanda Roblero) household members: family Smoking Status: Current every day smoker tobacco type: cigarettes and e-cigarettes ROS ROS ED Constitutional Constitutional ED: Reports [...] signs Auscultation: hyperactive bowel sounds Palpation: soft Extr (more content not included)... Normal [facility] Eosinophil percentageOrdered By: Diomedes York on 04-21-2025 Eosinophils/100 WBC (Bld) 0.2 % 0-5 [facility] Erythrocyte distribution wid th ratioOrdered By: Diomedes York on 04-21-2025 Erythrocyte distribution width (RBC) [Ratio] 12.3 % 11.6-14.6 [facility] Erythrocyte distribution wid th standard deviationOrdered By: Diomedes York on 04-21-2025 Erythrocyte distribution width (RBC) [Ratio] 42.9 fl 35.1-43.9 [facility] Glomerular filtration rate ( GFR) estimation/1.73 sq m using serum, plasma, or whole bOrdered By: Diomedes York on 04-21-2025 GFR/1.73 sq M.predicted among non-blacks MDRD (S/P/Bld) [Vol rate/Area] 65 mL/min/{1.73_m2} >60 [facility] Comment on above: mL/min/1.73m2 CKD-EP I Creatinine Equation (2020) Hematocrit Auto (Bld) [Volum e fraction]Ordered By: Diomedes York on 04-21-2025 Hematocrit (Bld) [Volume fraction] 48.7 % 40-54 [facility] Hemoglobin measurementOrdere d By: Diomedes York on 04-21-2025 Hemoglobin (Bld) [Mass/Vol] 16.4 g/dL 13.0-16. 5 [facility] Immature granulocytes/100 WB C Auto (Bld)Ordered By: Diomedes York on 04-21-2025 Immature granulocytes/100 WBC (Bld) 0.400 % 0.0-0.9 [facility] Comment on above: IG% - Immature Granu locytes (promyelocytes, myelocytes and metamyelocytes) > 1% indicates that a LEFT SHIFT is Present. Laboratory - Chemistry and C hemistry - challengeOrdered By: Diomedes York on 04-21-2025 AST [Catalytic activity/Vol] 14 U/L <38 [facility] Lipaseon 04-21-2025 Lipase [Catalytic activity/Vol] 27 U/L Normal 13-75 [facility] Comment on above: Result Comment: Heavenly wolff note: LIPASE revised reference range effective 22. New Lipase methodology. Expected to produce lower values than the previous assay method. NEW Reference Range: 13 - 75 U/L Performed By: #### L 500.2500, L500.3400, L100.0100, L501.2450 ####[facility] [address] [place], [address] Lipase measurementOrdered By : Diomedes York on 04-21-2025 Lipase [Catalytic activity/Vol] 27 U/L 13-75 [facility] Comment on above: Please note:LIPASE r evised reference range effective 22. New Lipase methodology. Expected to produce lower values than the previous assay method. NEW Reference Range: 13 - 75 U/L Liver Profileon 04-21-2025 Albumin [Mass/Vol] 4.5 g/dL Normal 3.5-5.0 [facility] Comment on above: Performed By: #### L 500.2500, L500.3400, L100.0100, L501.2450 ####[facility] [address] [place], [address] ALK PHOS 77 U/L Normal 40-129 [facility] Comment on above: Performed By: #### L 500.2500, L500.3400, L100.0100, L501.2450 ####[facility] [address] [place], [address] ALT [Catalytic activity/Vol] 12 U/L Normal <=46 [facility] Comment on above: Performed By: #### L 500.2500, L500.3400, L100.0100, L501.2450 ####[facility] [address] [place], [address] AST [Catalytic activity/Vol] 14 U/L Normal <=37 [facility] Comment on above: Performed By: #### L 500.2500, L500.3400, L100.0100, L501.2450 ####[facility] [address] [place], [address] Bilirubin [Mass/Vol] 0.42 mg/dL Normal 0.00-1.30 [facility] Comment on above: Performed By: #### L 500.2500, L500.3400, L100.0100, L501.2450 ####[facility] [address] [place], [address] Bilirubin.direct [Mass/Vol] 0.18 mg/dL Normal 0.00-0.3 0 [facility] Comment on above: Performed By: #### L 500.2500, L500.3400, L100.0100, L501.2450 ####[facility] [address] [place], [address] Globulin (S) [Mass/Vol] 2.7 g/dL Normal 2.2-4.2 [facility] Comment on above: Performed By: #### L 500.2500, L500.3400, L100.0100, L501.2450 ####[facility] [address] [place], [address] T PROT 7.2 g/dL Normal 5.9-8.4 [facility] Comment on above: Performed By: #### L 500.2500, L500.3400, L100.0100, L501.2450 ####[facility] [address] [place], [address] MCV (mean corpuscular volume ) determinationOrdered By: Diomedes York on 04-21-2025 MCV (RBC) [Entitic vol] 93.7 fL 80-94 [facility] Mean corpuscular hemoglobin (MCH) determinationOrdered By: Diomedes York on 04-21-2025 MCH (RBC) [Entitic mass] 31.5 pg 27.0-32.0 [facility] Mean corpuscular hemoglobin concentration (MCHC) determinationOrdered By: Diomedes York on 04-21-2025 MCHC (RBC) [Mass/Vol] 33.7 g/dL 32-36 [facility] Mean platelet volume determi nationOrdered By: Diomedes York on 04-21-2025 Platelet mean volume (Bld) [Entitic vol] 9.9 fL 6.2-12.0 [facility] Monocyte percentageOrdered B y: Diomedes York on 04-21-2025 Monocytes/100 WBC (Bld) 5.4 % 0-10 [facility] Neutrophil percentageOrdered By: Diomedes York on 04-21-2025 Neutrophils/100 WBC (Bld) 81.1 % High 47-70 [facility] Nucleated red blood cell per centageOrdered By: Diomedes York on 04-21-2025 Nucleated RBC/100 WBC (Bld) [Ratio] 0 % 0-5 [facility] Platelet countOrdered By: Violet York on 04-21-2025 Platelets (Bld) [#/Vol] 372 10*3/uL 150-450 [facility] Potassium measurement (mass/ volume)Ordered By: Diomedes York on 04-21-2025 Potassium (Unsp spec) [Mass/Vol] 3.9 mmol/L 3.3-5.1 [facility] RBC Auto (Bld) [#/Vol]Ordere d By: Diomedes York on 04-21-2025 RBC (Bld) [#/Vol] 5.20 10*6/uL 4.6-6.2 [facility] Serum creatinine measurement (mass/volume)Ordered By: Diomedes York on 04-21-2025 Creatinine [Mass/Vol] 1.44 mg/dL High 0.70-1.20 [facility] Serum globulin measurementOr dered By: Diomedes York on 04-21-2025 Globulin (S) [Mass/Vol] 2.7 g/dL 2.2-4.2 [facility] Serum glucose measurement (m ass/volume)Ordered By: Diomedes York on 04-21-2025 Glucose [Mass/Vol] 125 mg/dL High 70-99 [facility] Serum or plasma alanine comer otransferase (ALT) measurementOrdered By: Diomedes York on 04-21-2025 ALT [Catalytic activity/Vol] 12 U/L <47 [facility] Serum or plasma albumin mauro urement (mass/volume)Ordered By: Diomedes York on 04-21-2025 Albumin [Mass/Vol] 4.5 g/dL 3.5-5.0 [facility] Serum or plasma alkaline fatuma sphatase measurementOrdered By: Diomedes York on 04-21-2025 ALP [Catalytic activity/Vol] 77 U/L 40-129 [facility] Serum or plasma calcium mauro urement (mass/volume)Ordered By: Diomedes York on 04-21-2025 Calcium [Mass/Vol] 9.4 mg/dL 7.6-11.0 [facility] Serum or plasma urea nitroge n measurement (mass/volume)Ordered By: Diomedes York on 04-21-2025 Urea nitrogen [Mass/Vol] 10 mg/dL 4-19 [facility] Sodium levelOrdered By: Gordo York on 04-21-2025 Sodium [Moles/Vol] 144 mmol/L 133-145 [facility] Total proteinOrdered By: Luis York on 04-21-2025 Protein [Mass/Vol] 7.2 g/dL 5.9-8.4 [facility] White blood cell (WBC) count Ordered By: Diomedes York on 04-21-2025 WBC (Bld) [#/Vol] 14.0 10*3/uL High 4.4-11.0 [facility] 12 Lead EKGon 11-03-2024 12 Lead EKG [facility] [address] [place] [address] 12 Lead EKG 11/03/24 0504 MR#: [id number] Acct: [id number] Name: AIMEE DUCKWORTH Rep #: [id number] : 1990 34 From: Manuel Kim MD [...] rhythm Normal ECG Confirmed by Manuel Kim ([id number]), content editor JANELL RIVERA ([id number]) on 11/03/2024 7:58:31 AM Referred By: LORI Confirmed By: Manuel Kim 11/03/24 0758 Date Manuel Kim MD CC: Dr. Román Sandoval MD; Dr. Kamron Erickson MD Signed Normal [facility] Absolute neutrophil countOrd ered By: Román Sandoval on 11-03-2024 Neutrophils (Bld) [#/Vol] 3.8 10*3/uL 2.0-7.7 [facility] Anion gap in Serum or Plasma Ordered By: Román Sandoval on 11-03-2024 Anion gap [Moles/Vol] 8 mmol/L 5-15 [facility] BUN/creatinine ratioOrdered By: Román Sandoval on 11-03-2024 Urea nitrogen/Creatinine [Mass ratio] 6.6 mg/mg Low 10-20 [facility] Basophil percentageOrdered B y: Román Sandoval on 11-03-2024 Basophils/100 WBC (Bld) 0.3 % 0-1 [facility] Bilirubin, totalOrdered By: Román Sandoval on 11-03-2024 Bilirubin [Mass/Vol] 0.16 mg/dL 0.00-1.30 [facility] CBC W/Diff, Automatedon Absolute Lymph 1.14 X10 3/uL Normal 0.83-4.51 [facility] Comment on above: Performed By: #### L 501.5200, L100.0100, L500.4050, L501.2300 ####[facility] [address] [place], [place], [address] Absolute Neut 3.8 X10 3/uL Normal 2.0-7.7 [facility] Comment on above: Performed By: #### L 501.5200, L100.0100, L500.4050, L501.2300 ####[facility] [address] [place], [address] Basophils/100 WBC (Bld) 0.3 % Normal 0-1 [facility] Comment on above: Performed By: #### L 501.5200, L100.0100, L500.4050, L501.2300 ####[facility] [address] [place], [address] Eosinophils/100 WBC (Bld) 0.5 % Normal 0-5 [facility] Comment on above: Performed By: #### L 501.5200, L100.0100, L500.4050, L501.2300 ####[facility] [address] [place], [address] Erythrocyte distribution width (RBC) [Ratio] 13.8 % Normal 11.6-14.6 [facility] Comment on above: Performed By: #### L 501.5200, L100.0100, L500.4050, L501.2300 ####[facility] [address] [place], [address] Hematocrit (Bld) [Volume fraction] 38.0 % Low 40-54 [facility] Comment on above: Performed By: #### L 501.5200, L100.0100, L500.4050, L501.2300 ####[facility] [address] [place], [address] Hemoglobin (Bld) [Mass/Vol] 12.6 g/dL Low 13.0-16. 5 [facility] Comment on above: Performed By: #### L 501.5200, L100.0100, L500.4050, L501.2300 ####[facility] [address] [place], [address] IG% 0.500 Normal 0.0-0.9 [facility] Comment on above: Result Comment: IG% - Immature Granulocytes (promyelocytes, myelocytes and metamyelocytes) > 1% indicates that a LEFT SHIFT is Present. Performed By: #### L 501.5200, L100.0100, L500.4050, L501.2300 ####[facility] [address] [place], [address] Lymphocytes/100 WBC (Bld) 19.2 % Normal 19-41 [facility] Comment on above: Performed By: #### L 501.5200, L100.0100, L500.4050, L501.2300 ####[facility] [address] [place], [address] MCH (RBC) [Entitic mass] 31.2 pg Normal 27.0-32.0 [facility] Comment on above: Performed By: #### L 501.5200, L100.0100, L500.4050, L501.2300 ####[facility] [address] [place], [address] MCHC (RBC) [Mass/Vol] 33.2 g/dL Normal 32-36 [facility] Comment on above: Performed By: #### L 501.5200, L100.0100, L500.4050, L501.2300 ####[facility] [address] [place], [address] MCV (RBC) [Entitic vol] 94.1 fL High 80-94 [facility] Comment on above: Performed By: #### L 501.5200, L100.0100, L500.4050, L501.2300 ####[facility] [address] [place], [address] Monocytes/100 WBC (Bld) 16.0 % High 0-10 [facility] Comment on above: Performed By: #### L 501.5200, L100.0100, L500.4050, L501.2300 ####[facility] [address] [place], [address] Neutrophils/100 WBC (Bld) 63.5 % Normal 47-70 [facility] Comment on above: Performed By: #### L 501.5200, L100.0100, L500.4050, L501.2300 ####[facility] [address] [place], [address] Nucleated RBC (Bld) [#/Vol] 0 10*3/uL Normal 0-5 [facility] Comment on above: Performed By: #### L 501.5200, L100.0100, L500.4050, L501.2300 ####[facility] [address] [place], [address] Platelet mean volume (Bld) [Entitic vol] 9.6 fL Normal 6.2-12.0 [facility] Comment on above: Performed By: #### L 501.5200, L100.0100, L500.4050, L501.2300 ####[facility] [address] [place], [address] Platelets (Bld) [#/Vol] 172 10*3/uL Normal 150-450 [facility] Comment on above: Performed By: #### L 501.5200, L100.0100, L500.4050, L501.2300 ####[facility] [address] [place], [address] RBC (Bld) [#/Vol] 4.04 10*6/uL Low 4.6-6.2 [facility] Comment on above: Performed By: #### L 501.5200, L100.0100, L500.4050, L501.2300 ####[facility] [address] [place], [address] RDW SD 48.2 fl High 35.1-43.9 [facility] Comment on above: Performed By: #### L 501.5200, L100.0100, L500.4050, L501.2300 ####[facility] [address] [place], [address] WBC (Bld) [#/Vol] 5.9 10*3/uL Normal 4.4-11.0 [facility] Comment on above: Performed By: #### L 501.5200, L100.0100, L500.4050, L501.2300 ####[facility] [address] [place], [address] Carbon dioxide, total [Moles /volume] in Central venous bloodOrdered By: Román Sandoval on 11-03-2024 CO2 [Moles/Vol] 24.6 mmol/L 21.0-32.0 [facility] Chloride assayOrdered By: Huy Sandoval on 11-03-2024 Chloride [Moles/Vol] 104 mmol/L 98-108 [facility] Comprehensive Metabolic Prof ilon 11-03-2024 Albumin [Mass/Vol] 3.6 g/dL Normal 3.5-5.0 [facility] Comment on above: Performed By: #### L 501.5200, L100.0100, L500.4050, L501.2300 ####[facility] [address] [place], [address] Albumin/Globulin [Mass ratio] 1.9 {ratio} Normal 0.9-2.4 [facility] Comment on above: Performed By: #### L 501.5200, L100.0100, L500.4050, L501.2300 ####[facility] [address] [place], [address] ALK PHOS 66 U/L Normal 40-129 [facility] Comment on above: Performed By: #### L 501.5200, L100.0100, L500.4050, L501.2300 ####[facility] [address] [place], [address] ALT [Catalytic activity/Vol] 19 U/L Normal <=46 [facility] Comment on above: Performed By: #### L 501.5200, L100.0100, L500.4050, L501.2300 ####[facility] [address] [place], [address] AST [Catalytic activity/Vol] 22 U/L Normal <=37 [facility] Comment on above: Performed By: #### L 501.5200, L100.0100, L500.4050, L501.2300 ####[facility] [address] [place], [address] Bilirubin [Mass/Vol] 0.16 mg/dL Normal 0.00-1.30 [facility] Comment on above: Performed By: #### L 501.5200, L100.0100, L500.4050, L501.2300 ####[facility] [address] [place], [address] BUN/CRE 6.6 RATIO Low 10-20 [facility] Comment on above: Performed By: #### L 501.5200, L100.0100, L500.4050, L501.2300 ####[facility] [address] [place], [address] Calcium [Mass/Vol] 7.8 mg/dL Normal 7.6-11.0 [facility] Comment on above: Performed By: #### L 501.5200, L100.0100, L500.4050, L501.2300 ####[facility] [address] [place], [address] Chloride [Moles/Vol] 104 mmol/L Normal 98-108 [facility] Comment on above: Performed By: #### L 501.5200, L100.0100, L500.4050, L501.2300 ####[facility] [address] [place], [address] CO2 [Moles/Vol] 24.6 mmol/L Normal 21.0-32.0 [facility] Comment on above: Performed By: #### L 501.5200, L100.0100, L500.4050, L501.2300 ####[facility] [address] [place], [address] Creatinine [Mass/Vol] 1.01 mg/dL Normal 0.70-1.20 [facility] Comment on above: Performed By: #### L 501.5200, L100.0100, L500.4050, L501.2300 ####[facility] [address] [place], [address] ECRCL 145.41 ml/min Normal 50-250 [facility] Comment on above: Performed By: #### L 501.5200, L100.0100, L500.4050, L501.2300 ####[facility] [address] [place], [address] GAP 8 Normal 5-15 [facility] Comment on above: Performed By: #### L 501.5200, L100.0100, L500.4050, L501.2300 ####[facility] [address] [place], [address] GFR/1.73 sq M.predicted among non-blacks MDRD (S/P/Bld) [Vol rate/Area] 100 mL/min/{1.73_m2} Normal >60 [facility] Comment on above: Result Comment: mL/m in/1.73m2 CKD-EPI Creatinine Equation (2020) Performed By: #### L 501.5200, L100.0100, L500.4050, L501.2300 ####[facility] [address] [place], [address] Globulin (S) [Mass/Vol] 1.9 g/dL Low 2.2-4.2 [facility] Comment on above: Performed By: #### L 501.5200, L100.0100, L500.4050, L501.2300 ####[facility] [address] [place], [address] Glucose [Mass/Vol] 97 mg/dL Normal 70-99 [facility] Comment on above: Performed By: #### L 501.5200, L100.0100, L500.4050, L501.2300 ####[facility] [address] [place], [address] Potassium [Moles/Vol] 4.3 mmol/L Normal 3.3-5.1 [facility] Comment on above: Performed By: #### L 501.5200, L100.0100, L500.4050, L501.2300 ####[facility] [address] [place], [address] Sodium [Moles/Vol] 137 mmol/L Normal 133-145 [facility] Comment on above: Performed By: #### L 501.5200, L100.0100, L500.4050, L501.2300 ####[facility] [address] [place], [address] T PROT 5.6 g/dL Low 5.9-8.4 [facility] Comment on above: Performed By: #### L 501.5200, L100.0100, L500.4050, L501.2300 ####[facility] [address] [place], [address] Urea nitrogen [Mass/Vol] 7 mg/dL Normal 4-19 [facility] Comment on above: Performed By: #### L 501.5200, L100.0100, L500.4050, L501.2300 ####[facility] [address] [place], [address] Electrocardiogram reportOrde red By: Manuel Kim on 11-03-2024 EKG study [facility] [address] [place] [address] 12 Lead EKG 11/03/24 0504 MR#: [id number] Acct: [id number] Name: AIMEE DUCKWORTH Rep #:[id number] : [...] rhythm Normal ECG Confirmed by Manuel Kim ([id number]), content editor JANELL RIVERA ([id number]) on 11/03/2024 7:58:31 AM Referred By: LORI Confirmed By: Manuel Kim 11/03/24 0758 Date _ Manuel Kim MD CC: Dr. Román Sandoval MD; Dr. Kamron Erickson MD ~ Signed [facility] Other Phone: EKG study [facility] [address] [address] 12 Lead EKG 11/02/24 1148 MR#: [id number] Acct: [id number] Name: AIMEE DUCKWORTH Rep #:[id number] : [...] QT Abnormal ECG Confirmed by Manuel Kim ([id number]), content editor JANELL RIVERA ([id number]) on 11/03/2024 7:47:36 AM Referred By: Confirmed By: Manuel Kim 11/03/24 0747 Date _ Manuel Kim MD CC: Dr. Román Sandoval MD; Dr. Kamron Erickson MD; Dr. Tramaine Tovar MD ~ Signed [facility] Other Phone: Eosinophil percentageOrdered By: Román Sandoval on 11-03-2024 Eosinophils/100 WBC (Bld) 0.5 % 0-5 [facility] Erythrocyte distribution wid th (RBC) [Ratio]Ordered By: Román Sandoval on 11-03-2024 Erythrocyte distribution width (RBC) [Entitic vol] 48.2 fL High 35.1-43.9 [facility] Erythrocyte distribution wid th ratioOrdered By: Román Sandoval on 11-03-2024 Erythrocyte distribution width (RBC) [Ratio] 13.8 % 11.6-14.6 [facility] Estimation of creatinine vick aranceOrdered By: Román Sandoval on 11-03-2024 Estimated Creatinine Clearance Calc 145.41 ml/min 50-250 [facility] GFR/1.73 sq M.predicted lana g non-blacks MDRD (S/P/Bld) [Vol rate/Area]Ordered By: Román Sandoval on 11-03-2024 Estimated GFR (MDRD) Non-Af Amer 100 >60 [facility] Comment on above: mL/min/1.73m2 CKD-EP I Creatinine Equation (2020) Hematocrit Auto (Bld) [Volum e fraction]Ordered By: Román Sandoval on 11-03-2024 Hematocrit (Bld) [Volume fraction] 38.0 % Low 40-54 [facility] Hemoglobin measurementOrdere d By: Román Sandoval on 11-03-2024 Hemoglobin (Bld) [Mass/Vol] 12.6 g/dL Low 13.0-16. 5 [facility] Immature granulocytes/100 WB C Auto (Bld)Ordered By: Román Sandoval on 11-03-2024 Immature granulocytes/100 WBC (Bld) 0.500 % 0.0-0.9 [facility] Comment on above: IG% - Immature Granu locytes (promyelocytes, myelocytes and metamyelocytes) > 1% indicates that a LEFT SHIFT is Present. Laboratory - Chemistry and C hemistry - challengeOrdered By: Román Sandoval on 11-03-2024 AST [Catalytic activity/Vol] 22 U/L <38 [facility] Lymphocytes Auto (Unsp spec) [#/Vol]Ordered By: Román Sandoval on 11-03-2024 Lymphocytes (Bld) [#/Vol] 1.14 10*3/uL 0.83-4.5 1 [facility] Lymphocytes/100 WBC Auto (Un sp spec)Ordered By: Román Sandoval on 11-03-2024 Lymphocytes/100 WBC (Bld) 19.2 % 19-41 [facility] MCV (mean corpuscular volume ) determinationOrdered By: Román Sandoval on 11-03-2024 MCV (RBC) [Entitic vol] 94.1 fL High 80-94 [facility] Magnesiumon 11-03-2024 Magnesium [Mass/Vol] 2.4 mg/dL High 1.5-2.2 [facility] Comment on above: Performed By: #### L 501.5200, L100.0100, L500.4050, L501.2300 ####[facility] [address] [place], [address] Magnesium (Unsp spec) [Mass/ Vol]Ordered By: Román Sandoval on 11-03-2024 Magnesium [Mass/Vol] 2.4 mg/dL High 1.5-2.2 [facility] Mean corpuscular hemoglobin (MCH) determinationOrdered By: Román Sandoval on 11-03-2024 MCH (RBC) [Entitic mass] 31.2 pg 27.0-32.0 [facility] Mean corpuscular hemoglobin concentration (MCHC) determinationOrdered By: Román Sandoval on 11-03-2024 MCHC (RBC) [Mass/Vol] 33.2 g/dL 32-36 [facility] Mean platelet volume determi nationOrdered By: Román Sandoval on 11-03-2024 Platelet mean volume (Bld) [Entitic vol] 9.6 fL 6.2-12.0 [facility] Monocyte percentageOrdered B y: Román Sandoval on 11-03-2024 Monocytes/100 WBC (Bld) 16.0 % High 0-10 [facility] Neutrophil percentageOrdered By: Román Sandoval on 11-03-2024 Neutrophils/100 WBC (Bld) 63.5 % 47-70 [facility] Nucleated red blood cell per centageOrdered By: Román Sandoval on 11-03-2024 Nucleated RBC/100 WBC (Bld) [Ratio] 0 % 0-5 [facility] Phosphoruson 11-03-2024 Phosphate [Mass/Vol] 3.5 mg/dL Normal 2.7-4.5 [facility] Comment on above: Performed By: #### L 501.5200, L100.0100, L500.4050, L501.2300 ####[facility] [address] [place], [address] Platelet countOrdered By: Huy Sandoval on 11-03-2024 Platelets (Bld) [#/Vol] 172 10*3/uL 150-450 [facility] Potassium (Unsp spec) [Mass/ Vol]Ordered By: Román Sandoval on 11-03-2024 Potassium [Moles/Vol] 4.3 mmol/L 3.3-5.1 [facility] RBC Auto (Bld) [#/Vol]Ordere d By: Román Sandoval on 11-03-2024 RBC (Bld) [#/Vol] 4.04 10*6/uL Low 4.6-6.2 [facility] Serum creatinine measurement (mass/volume)Ordered By: Román Sandoval on 11-03-2024 Creatinine [Mass/Vol] 1.01 mg/dL 0.70-1.20 [facility] Serum globulin measurementOr dered By: Román Sandoval on 11-03-2024 Globulin (S) [Mass/Vol] 1.9 g/dL Low 2.2-4.2 [facility] Serum glucose measurement (m ass/volume)Ordered By: Román Sandoval on 11-03-2024 Glucose [Mass/Vol] 97 mg/dL 70-99 [facility] Serum or plasma alanine comer otransferase (ALT) measurementOrdered By: Román Sandoval on 11-03-2024 ALT [Catalytic activity/Vol] 19 U/L <47 [facility] Serum or plasma albumin mauro urement (mass/volume)Ordered By: Román Sandoval on 11-03-2024 Albumin [Mass/Vol] 3.6 g/dL 3.5-5.0 [facility] Serum or plasma albumin/glob ulin mass ratioOrdered By: Román Sandoval on 11-03-2024 Albumin/Globulin [Mass ratio] 1.9 {ratio} 0.9-2.4 [facility] Serum or plasma alkaline fatuma sphatase measurementOrdered By: Román Sandoval on 11-03-2024 ALP [Catalytic activity/Vol] 66 U/L 40-129 [facility] Serum or plasma calcium mauro urement (mass/volume)Ordered By: Román Sandoval on 11-03-2024 Calcium [Mass/Vol] 7.8 mg/dL 7.6-11.0 [facility] Serum or plasma urea nitroge n measurement (mass/volume)Ordered By: Román Sandoval on 11-03-2024 Urea nitrogen [Mass/Vol] 7 mg/dL 4-19 [facility] Serum phosphorus measurement Ordered By: Román Sandoval on 11-03-2024 Phosphorus Level 3.5 mg/dL 2.7-4.5 [facility] Sodium levelOrdered By: Matt Sandoval on 11-03-2024 Sodium [Moles/Vol] 137 mmol/L 133-145 [facility] Total proteinOrdered By: Maxx Sandoval on 11-03-2024 Protein [Mass/Vol] 5.6 g/dL Low 5.9-8.4 [facility] White blood cell (WBC) count Ordered By: Román Sandoval on 11-03-2024 WBC (Bld) [#/Vol] 5.9 10*3/uL 4.4-11.0 [facility] 12 Lead EKGon 11-02-2024 12 Lead EKG [facility] [address] [place] [address] 12 Lead EKG 11/02/24 1148 MR#: [id number] Acct: [id number] Name: AIMEE DUCKWORTH Rep #: [id number] : 1990 34 From: Manuel Kim MD [...] Abnormal ECG Confirmed by Manuel Kim ([id number]), content editor JANELL RIVERA ([id number]) on 11/03/2024 7:47:36 AM Referred By: Confirmed By: Manuel Kim 11/03/24 0747 Date Manuel Kim MD CC: Dr. Román Sandoval MD; Dr. Kamron Erickson MD; Dr. Tramaine Tovar MD Signed Normal [facility] Absolute neutrophil countOrd ered By: Tramaine Tovar on 11-02-2024 Neutrophils (Bld) [#/Vol] 5.0 10*3/uL 2.0-7.7 [facility] Acetaminophen (Tylenol) Leve sandra 11-02-2024 Acetaminophen [Mass/Vol] 10.5 ug/mL Normal 8.0-19.0 [facility] Comment on above: Result Comment: Acet aminophen concentrations > 200 ug/mL four hours after ingestion, > 100 ug/mL eight hours after ingestion, and > 50 ug/mL 12 hours after ingestion are potentially toxic. Performed By: #### L 500.2500, L501.9100, L505.5000, L100.0100 #### [facility] [address] [place], [address] Alcohol, Blood (Medical)-Ser umon 11-02-2024 SERUM ETOH < 10.1 Normal <=10.0 [facility] Comment on above: Result Comment: This test is for medical purposes only. The legal definition of intoxication varies according to local law. Performed By: #### L 500.2500, L501.9100, L505.5000, L100.0100 #### [facility] [address] [place], [place], [id number] Amphetamines Screen method > 1000 ng/mL Ql (U)Ordered By: Tramaine Tovar on 11-02-2024 Amphetamines Ql (U) Positive <1000 ng/mL [facility] Comment on above: If confirmation test ing is needed, a separate order will be required to send out testing to the reference laboratory. Urine Barbiturates Screen Negative < 200 ng/mL [facility] Anion gap in Serum or Plasma Ordered By: Tramaine Tovar on 11-02-2024 Anion gap [Moles/Vol] 14 mmol/L 5-15 [facility] BUN/creatinine ratioOrdered By: Tramainedelia Tovar on 11-02-2024 Urea nitrogen/Creatinine [Mass ratio] 7.4 mg/mg Low 10-20 [facility] Basophil percentageOrdered B y: Tramaine Tovar on 11-02-2024 Basophils/100 WBC (Bld) 0.5 % 0-1 [facility] Bilirubin, totalOrdered By: Tramainedelia Tovar on 11-02-2024 Bilirubin [Mass/Vol] 0.15 mg/dL 0.00-1.30 [facility] CBC W/Diff, Automatedon SMEAR COMMENT SCANNED Normal [facility] Comment on above: Result Comment: SLIG HT MONOCYTOSIS NOTED Performed By: #### L 505.5000, L501.8300, L501.9100, L100.0100, L501.8400, L500.4050 ####[facility] [address] [place], [address] Carbon dioxide, total [Moles /volume] in Central venous bloodOrdered By: Tramaine Tovar on 11-02-2024 CO2 [Moles/Vol] 23.4 mmol/L 21.0-32.0 [facility] Chloride assayOrdered By: Alanis Tovar on 11-02-2024 Chloride [Moles/Vol] 99 mmol/L 98-108 [facility] Comprehensive Metabolic Prof ilon 11-02-2024 Albumin [Mass/Vol] 3.9 g/dL Normal 3.5-5.0 [facility] Comment on above: Performed By: #### L 505.5000, L501.8300, L501.9100, L100.0100, L501.8400, L500.4050 ####[facility] [address] [place], [address] Albumin/Globulin [Mass ratio] 2.0 {ratio} Normal 0.9-2.4 [facility] Comment on above: Performed By: #### L 505.5000, L501.8300, L501.9100, L100.0100, L501.8400, L500.4050 ####[facility] [address] [place], [address] ALK PHOS 74 U/L Normal 40-129 [facility] Comment on above: Performed By: #### L 505.5000, L501.8300, L501.9100, L100.0100, L501.8400, L500.4050 ####[facility] [address] [place], [address] ALT [Catalytic activity/Vol] 21 U/L Normal <=46 [facility] Comment on above: Performed By: #### L 505.5000, L501.8300, L501.9100, L100.0100, L501.8400, L500.4050 ####[facility] [address] [place], [address] AST [Catalytic activity/Vol] 24 U/L Normal <=37 [facility] Comment on above: Performed By: #### L 505.5000, L501.8300, L501.9100, L100.0100, L501.8400, L500.4050 ####[facility] [address] [place], [address] Bilirubin [Mass/Vol] 0.15 mg/dL Normal 0.00-1.30 [facility] Comment on above: Performed By: #### L 505.5000, L501.8300, L501.9100, L100.0100, L501.8400, L500.4050 ####[facility] [address] [place], [address] BUN/CRE 7.4 RATIO Low 10-20 [facility] Comment on above: Performed By: #### L 505.5000, L501.8300, L501.9100, L100.0100, L501.8400, L500.4050 ####[facility] [address] [place], [address] Calcium [Mass/Vol] 8.0 mg/dL Normal 7.6-11.0 [facility] Comment on above: Performed By: #### L 505.5000, L501.8300, L501.9100, L100.0100, L501.8400, L500.4050 ####[facility] [address] [place], [address] Chloride [Moles/Vol] 99 mmol/L Normal 98-108 [facility] Comment on above: Performed By: #### L 505.5000, L501.8300, L501.9100, L100.0100, L501.8400, L500.4050 ####[facility] [address] [place], [address] CO2 [Moles/Vol] 23.4 mmol/L Normal 21.0-32.0 [facility] Comment on above: Performed By: #### L 505.5000, L501.8300, L501.9100, L100.0100, L501.8400, L500.4050 ####[facility] [address] [place], [address] Creatinine [Mass/Vol] 1.22 mg/dL High 0.70-1.20 [facility] Comment on above: Performed By: #### L 505.5000, L501.8300, L501.9100, L100.0100, L501.8400, L500.4050 ####[facility] [address] [place], [place], [id number] ECRCL 119.42 ml/min Normal 50-250 [facility] Comment on above: Performed By: #### L 505.5000, L501.8300, L501.9100, L100.0100, L501.8400, L500.4050 ####[facility] [address] [place], [address] GAP 14 Normal 5-15 [facility] Comment on above: Performed By: #### L 505.5000, L501.8300, L501.9100, L100.0100, L501.8400, L500.4050 ####[facility] [address] [place], [address] GFR/1.73 sq M.predicted among non-blacks MDRD (S/P/Bld) [Vol rate/Area] 80 mL/min/{1.73_m2} Normal >60 [facility] Comment on above: Result Comment: mL/m in/1.73m2 CKD-EPI Creatinine Equation (2020) Performed By: #### L 505.5000, L501.8300, L501.9100, L100.0100, L501.8400, L500.4050 ####[facility] [address] [place], [address] Globulin (S) [Mass/Vol] 2.0 g/dL Low 2.2-4.2 [facility] Comment on above: Performed By: #### L 505.5000, L501.8300, L501.9100, L100.0100, L501.8400, L500.4050 ####[facility] [address] [place], [address] Glucose [Mass/Vol] 161 mg/dL High 70-99 [facility] Comment on above: Performed By: #### L 505.5000, L501.8300, L501.9100, L100.0100, L501.8400, L500.4050 ####[facility] [address] [place], [address] Potassium [Moles/Vol] 3.4 mmol/L Normal 3.3-5.1 [facility] Comment on above: Performed By: #### L 505.5000, L501.8300, L501.9100, L100.0100, L501.8400, L500.4050 ####[facility] [address] [place], [address] Sodium [Moles/Vol] 136 mmol/L Normal 133-145 [facility] Comment on above: Performed By: #### L 505.5000, L501.8300, L501.9100, L100.0100, L501.8400, L500.4050 ####[facility] [address] [place], [address] T PROT 5.9 g/dL Normal 5.9-8.4 [facility] Comment on above: Performed By: #### L 505.5000, L501.8300, L501.9100, L100.0100, L501.8400, L500.4050 ####[facility] [address] [place], [address] Urea nitrogen [Mass/Vol] 9 mg/dL Normal 4-19 [facility] Comment on above: Performed By: #### L 505.5000, L501.8300, L501.9100, L100.0100, L501.8400, L500.4050 ####[facility] [address] [place], [address] Emergency Department Summary on 11-02-2024 Emergency Department Summary [facility] Medical Records Department [address] [place] [address] Emergency Department Summary 11/02/24 MR#: [id number] Acct: [id number] Name: AIMEE DUCKWORTH Rep #: [id number] : 1990 34 From: Tramaine Tovar MD PCP: Dr. Kamron Erickson MD Status:REG ER Location: ED HPI History of Present Illness Chief Complaint: Overdose Detail of Chief Complaint: Suicide attempt, took 6450 mg trazodone tablets 30 to 45 minutes [employer] Informant: patient Onset/Context/Timing Onset: Hours Context: Sudden [...] 1 - 2 puff inhalation Q4H PRN GA N 11/02/24 Unknown History aerosol inhaler cough [...] and up (more content not included)... Normal [facility] Eosinophil percentageOrdered By: [facility] on 11-02-2024 Eosinophils/100 WBC (Bld) 2.1 % 0-5 [facility] Erythrocyte distribution wid th ratioOrdered By: [facility] on 11-02-2024 Erythrocyte distribution width (RBC) [Ratio] 13.5 % 11.6-14.6 [facility] Erythrocyte distribution wid th standard deviationOrdered By: [facility] on 11-02-2024 Erythrocyte distribution width (RBC) [Entitic vol] 46.1 fL High 35.1-43.9 [facility] Estimation of creatinine vick aranceOrdered By: [facility] on 11-02-2024 Estimated Creatinine Clearance Calc 119.42 ml/min 50-250 [facility] Ethanol [Mass/Vol]Ordered By :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 [Mass/Vol] 1.01 mg/dL Normal 0.70-1.30 [facility] Comment on above: Result Comment: The validity of the calculated GFR GFRAA in patients over 70 years has not been determined. Clinical correlation is essential. Performed By: #### L 501.9100, L500.2500, L100.0100, L505.5000 ####[facility] [address] [place], [address] ECRCL 138.80 ml/min Normal [facility] Comment on above: Performed By: #### L 501.9100, L500.2500, L100.0100, L505.5000 ####[facility] [address] [place], [address] EST GFR - AA 109 mL/min Normal >60 [facility] Comment on above: Result Comment: Afri can Mongolian GFR Calc Performed By: #### L 501.9100, L500.2500, L100.0100, L505.5000 ####[facility] [address] [place], [address] GAP 6 Normal 5-15 [facility] Comment on above: Performed By: #### L 501.9100, L500.2500, L100.0100, L505.5000 ####[facility] [address] [place], [address] GFR/1.73 sq M.predicted among non-blacks MDRD (S/P/Bld) [Vol rate/Area] 90 mL/min/{1.73_m2} Normal >60 [facility] Comment on above: Result Comment: Non- GFR Calc Performed By: #### L 501.9100, L500.2500, L100.0100, L505.5000 ####[facility] [address] [place], [address] Glucose [Mass/Vol] 121 mg/dL High 74-106 [facility] Comment on above: Result Comment: Fast ing Glucose result from 100 to 125 mg/dL suggests IMPAIRED HOMEOSTASIS per A.D.A. criteria. Performed By: #### L 501.9100, L500.2500, L100.0100, L505.5000 ####[facility] [address] [place], [address] Potassium [Moles/Vol] 3.2 mmol/L Low 3.5-5.1 [facility] Comment on above: Performed By: #### L 501.9100, L500.2500, L100.0100, L505.5000 ####[facility] [address] [place], [address] Sodium [Moles/Vol] 139 mmol/L Normal 136-145 [facility] Comment on above: Performed By: #### L 501.9100, L500.2500, L100.0100, L505.5000 ####[facility] [address] [place], [address] Urea nitrogen [Mass/Vol] 9 mg/dL Normal 7-18 [facility] Comment on above: Performed By: #### L 501.9100, L500.2500, L100.0100, L505.5000 ####[facility] [address] [place], [address] CBC W/Diff, Automatedon 10-3 0-4 Absolute Lymph 2.89 X10 3/uL Normal 0.83-4.51 [facility] Comment on above: Performed By: #### L 501.9100, L500.2500, L100.0100, L505.5000 #### [facility] [address] [place], [address] Absolute Neut 5.1 X10 3/uL Normal 2.0-7.7 [facility] Comment on above: Performed By: #### L 501.9100, L500.2500, L100.0100, L505.5000 #### [facility] [address] [place], [address] Basophils/100 WBC (Bld) 0.6 % Normal 0-1 [facility] Comment on above: Performed By: #### L 501.9100, L500.2500, L100.0100, L505.5000 #### [facility] [address] [place], [address] Eosinophils/100 WBC (Bld) 4.5 % Normal 0-5 [facility] Comment on above: Performed By: #### L 501.9100, L500.2500, L100.0100, L505.5000 #### [facility] [address] [place], [address] Erythrocyte distribution width (RBC) [Ratio] 13.6 % Normal 11.6-14.6 [facility] Comment on above: Performed By: #### L 501.9100, L500.2500, L100.0100, L505.5000 #### [facility] [address] [place], [address] Hematocrit (Bld) [Volume fraction] 39.2 % Low 40-54 [facility] Comment on above: Performed By: #### L 501.9100, L500.2500, L100.0100, L505.5000 #### [facility] [address] [place], [address] Hemoglobin (Bld) [Mass/Vol] 12.7 g/dL Low 13.0-16. 5 [facility] Comment on above: Performed By: #### L 501.9100, L500.2500, L100.0100, L505.5000 #### [facility] [address] [place], [address] IG% 0.300 Normal 0.0-0.9 [facility] Comment on above: Result Comment: IG% - Immature Granulocytes (promyelocytes, myelocytes and metamyelocytes) > 1% indicates that a LEFT SHIFT is Present. Performed By: #### L 501.9100, L500.2500, L100.0100, L505.5000 #### [facility] [address] [place], [address] Lymphocytes/100 WBC (Bld) 30.8 % Normal 19-41 [facility] Comment on above: Performed By: #### L 501.9100, L500.2500, L100.0100, L505.5000 #### [facility] [address] [place], [address] MCH (RBC) [Entitic mass] 29.7 pg Normal 27.0-32.0 [facility] Comment on above: Performed By: #### L 501.9100, L500.2500, L100.0100, L505.5000 #### [facility] [address] [place], [address] MCHC (RBC) [Mass/Vol] 32.4 g/dL Normal 32-36 [facility] Comment on above: Performed By: #### L 501.9100, L500.2500, L100.0100, L505.5000 #### [facility] [address] [place], [address] MCV (RBC) [Entitic vol] 91.8 fL Normal 80-94 [facility] Comment on above: Performed By: #### L 501.9100, L500.2500, L100.0100, L505.5000 #### [facility] [address] [place], [address] Monocytes/100 WBC (Bld) 9.1 % Normal 0-10 [facility] Comment on above: Performed By: #### L 501.9100, L500.2500, L100.0100, L505.5000 #### [facility] [address] [place], [address] Neutrophils/100 WBC (Bld) 54.7 % Normal 47-70 [facility] Comment on above: Performed By: #### L 501.9100, L500.2500, L100.0100, L505.5000 #### [facility] [address] [place], [address] Nucleated RBC (Bld) [#/Vol] 0 10*3/uL Normal 0-5 [facility] Comment on above: Performed By: #### L 501.9100, L500.2500, L100.0100, L505.5000 #### [facility] [address] [place], [address] Platelet mean volume (Bld) [Entitic vol] 9.0 fL Normal 6.2-12.0 [facility] Comment on above: Performed By: #### L 501.9100, L500.2500, L100.0100, L505.5000 #### [facility] [address] [place], [address] Platelets (Bld) [#/Vol] 298 10*3/uL Normal 150-450 [facility] Comment on above: Performed By: #### L 501.9100, L500.2500, L100.0100, L505.5000 #### [facility] [address] [place], [address] RBC (Bld) [#/Vol] 4.27 10*6/uL Low 4.6-6.2 [facility] Comment on above: Performed By: #### L 501.9100, L500.2500, L100.0100, L505.5000 #### [facility] [address] [place], [address] RDW SD 46.2 fl High 35.1-43.9 [facility] Comment on above: Performed By: #### L 501.9100, L500.2500, L100.0100, L505.5000 #### [facility] [address] [place], [address] WBC (Bld) [#/Vol] 9.4 10*3/uL Normal 4.4-11.0 [facility] Comment on above: Performed By: #### L 501.9100, L500.2500, L100.0100, L505.5000 #### [facility] [address] [place], [address] Emergency Department Summary on 06-02-2024 Emergency Department Summary [facility] Medical Records Department [address] [place] [address] Emergency Department Summary 06/02/24 MR#: [id number] Acct: [id number] Name: AIMEE DUCKWORTH Rep #: [id number] : 1990 33 From: Diomedes York DO PCP: Dr. 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 [...] family members as documented by the police [facility] Medical History Schizophrenia Bipolar disorder Depression Anxiety [...] sign bila (more content not included)... Normal [facility] Urinalysis, Completeon 06-02 BACTERIA 0 SEEN Normal None Seen [facility] Comment on above: Order Comment: COLLE CTOR TO SPECIFY Performed By: #### L 400.0001 #### [facility] [address] [place], [place], [id number] EPI,SQUAMOUS 0 SEEN Normal 0-5 [facility] Comment on above: Order Comment: COLLE CTOR TO SPECIFY Performed By: #### L 400.0001 #### [facility] [address] [facility] [id number] Mucus Ql (Urine sed) 0 SEEN Normal [facility] Comment on above: Order Comment: COLLE CTOR TO SPECIFY Performed By: #### L 400.0001 #### [facility] [address] [place], [address] RBC 0 SEEN Normal 0-5 [facility] Comment on above: Order Comment: CIPRIANO ECHEVARRIAOR TO SPECIFY Performed By: #### L 400.0001 #### [facility] [address] [place], [address] WBC 0 SEEN Normal 0-5 [facility] Comment on above: Order Comment: CIPRIANO ECHEVARRIAOR TO SPECIFY Performed By: #### L 400.0001 #### [facility] [address] [place], [address] Urine Drug Screen (VISTA)on 06-02-2024 AMPHETAMINES Negative Normal <1000 ng/mL [facility] Comment on above: Performed By: #### L 501.9100, L500.2500, L100.0100, L505.5000 ####[facility] [address] [place], [address] BARBITIURATES Negative Normal < 200 ng/mL [facility] Comment on above: Performed By: #### L 501.9100, L500.2500, L100.0100, L505.5000 ####[facility] [address] [place], [address] BENZODIAZIPINE Negative Normal < 200 ng/mL [facility] Comment on above: Performed By: #### L 501.9100, L500.2500, L100.0100, L505.5000 ####[facility] [address] [place], [place], [phone] COCAINE Negative Normal < 300 ng/mL [facility] Comment on above: Performed By: #### L 501.9100, L500.2500, L100.0100, L505.5000 ####[facility] [address] [place], [address] ECSTACY Positive Abnormal < 500 ng/mL [facility] Comment on above: Performed By: #### L 501.9100, L500.2500, L100.0100, L505.5000 ####[facility] [address] [place], [address] METHADONE Negative Normal < 300 ng/mL [facility] Comment on above: Performed By: #### L 501.9100, L500.2500, L100.0100, L505.5000 ####[facility] [address] [place], [address] OPIATES Negative Normal < 300 ng/mL [facility] Comment on above: Performed By: #### L 501.9100, L500.2500, L100.0100, L505.5000 ####[facility] [address] [place], [address] PCP Negative Normal < 25 ng/mL [facility] Comment on above: Performed By: #### L 501.9100, L500.2500, L100.0100, L505.5000 ####[facility] [address] [place], [address] THC Negative Normal < 50 ng/mL [facility] Comment on above: Performed By: #### L 501.9100, L500.2500, L100.0100, L505.5000 ####[facility] [address] [place], [address] VISTA UDS PH 7 Normal [facility] Comment on above: Performed By: #### L 501.9100, L500.2500, L100.0100, L505.5000 ####[facility] [address] [place], [address] Valproic Acid (Depakene) Lev kerri 06-02-2024 VALPROIC ACID < 3 Low 50-100 [facility] Comment on above: Performed By: #### L 501.8100 #### [facility] [address] [place], [address] CT ABDOMEN PELVIS WITH IV CO NTRAST [...] 6-12 months, then CT at 18-24 months [facility] Workstation ID: [id number] Dictated by: LINO BERMUDEZ on FriMay 06, 2023 9:44:43 PM EDT Transcribed by: LUX ERNST on FriMay 06, 2023 9:48:44 PM EDT Finalized by: LINO BERMUDEZ on FriMay 06, 2023 9:54:17 PM EDT [facility] Comment on above: Order Comment: [...] Auto (Unsp spec) [#/Vol] 1.76 10*3/uL 0.83-4.51 [facility] Basophil percentageOrdered B y: Gustavo Garcia on 04-13-2023 Basophils/100 WBC (Bld) 0.3 % 0-1 [facility] Bilirubin [Mass/Vol] 0.40 mg/dL 0.20-1.00 [facility] Comment on above: For patients on eltr ombopag therapy, use of Dimension [place] TBIL is not recommended. Chloride [Moles/Vol] 105 mmol/L 98-107 [facility] Eosinophils/100 WBC (Bld) 1.3 % 0-5 [facility] Glucose [Mass/Vol] 126 mg/dL 74-106 [facility] Comment on above: Fasting Glucose resu lt greater than or equal to 126 mg/dL suggests DIABETES MELLITUS per A.D.A. criteria. Neutrophils (Bld) [#/Vol] 12.9 10*3/uL 2.0-7.7 [facility] Neutrophils/100 WBC (Bld) 82.3 % 47-70 [facility] Potassium [Moles/Vol] 3.3 mmol/L 3.5-5.1 [facility] Protein [Mass/Vol] 7.1 g/dL 6.4-8.2 [facility] Sodium [Moles/Vol] 141 mmol/L 136-145 [facility] WBC (Bld) [#/Vol] 15.7 10*3/uL 4.4-11.0 [facility] Blood erythrocytes count (nu mber/volume)Ordered By: Gustavo Garcia on 04-13-2023 RBC (Bld) [#/Vol] 5.04 10*6/uL 4.6-6.2 [facility] Blood hemoglobin measurement (mass/volume)Ordered By: Gustavo Garcia on 04-13-2023 Hemoglobin (Bld) [Mass/Vol] 14.9 g/dL 13.0-16. 5 [facility] Blood lymphocytes/100 leukoc ytesOrdered By: Gustavo Garcia on 04-13-2023 Lymphocytes/100 WBC (Bld) 11.2 % 19-41 [facility] Blood monocytes/100 leukocyt esOrdered By: Gustavo Garcia on 04-13-2023 Monocytes/100 WBC (Bld) 4.5 % 0-10 [facility] Blood platelet mean volumeOr dered By: Gustavo Garcia on 04-13-2023 Platelet mean volume (Bld) [Entitic vol] 9.3 fL 6.2-12.0 [facility] Determination of erythrocyte mean corpuscular volume (MCV)Ordered By: Gustavo Garcia on 04-13-2023 MCV (RBC) [Entitic vol] 89.5 fL 80-94 [facility] Direct bilirubinOrdered By: Gustavo Garcia on 04-13-2023 Bilirubin.direct [Mass/Vol] 0.14 mg/dL 0.00-0.3 0 [facility] Hematocrit Auto (Bld) [Volum e fraction]Ordered By: Gustavo Garcia on 04-13-2023 Hematocrit (Bld) [Volume fraction] 45.1 % 40-54 [facility] - Chemistry and C hemistry - challengeOrdered By: Gustavo Garcia on 04-13-2023 ALP [Catalytic activity/Vol] 95 U/L 45-117 [facility] ALT [Catalytic activity/Vol] 18 U/L 16-61 [facility] CO2 [Moles/Vol] 30.0 mmol/L 21.0-32.0 [facility] Globulin (S) [Mass/Vol] 3.4 g/dL 2.2-4.2 [facility] Lipase [Catalytic activity/Vol] 34 U/L 13-75 [facility] Comment on above: Please note:LIPASE r evised reference range effective 22. New Lipase methodology. Expected to produce lower values than the previous assay method. NEW Reference Range: 13 - 75 U/L Urea nitrogen/Creatinine [Mass ratio] 8.2 mg/mg 10-20 [facility] - Hematology and Cell countsOrdered By: Gustavo Garcia on 04-13-2023 Erythrocyte distribution width (RBC) [Entitic vol] 42.0 fL 35.1-43.9 [facility] Erythrocyte distribution width (RBC) [Ratio] 12.8 % 11.6-14.6 [facility] Immature granulocytes/100 WBC (Bld) 0.400 % 0.0-0.9 [facility] Comment on above: IG% - Immature Granu locytes (promyelocytes, myelocytes and metamyelocytes) > 1% indicates that a LEFT SHIFT is Present. MCH (RBC) [Entitic mass] 29.6 pg 27.0-32.0 [facility] Nucleated RBC/100 WBC (Bld) [Ratio] 0 % 0-5 [facility] MCHC Auto (RBC) [Mass/Vol]Or dered By: Gustavo Garcia on 04-13-2023 MCHC (RBC) [Mass/Vol] 33.0 g/dL 32-36 [facility] No Panel InformationOrdered By: Gustavo Garcia on 04-13-2023 Estimated Creatinine Clearance Calc 120.00 ml/min [facility] Estimated GFR (MDRD) Amer 115 mL/min >60 [facility] Comment on above: GFR Calc Estimated GFR (MDRD) Non-Af Amer 95 mL/min >60 [facility] Comment on above: Non- GFR Calc Platelets bldOrdered By: Eric Garcia on 04-13-2023 Platelets (Bld) [#/Vol] 351 10*3/uL 150-450 [facility] Serum or plasma albumin mauro urement (mass/volume)Ordered By: Gustavo Garcia on 04-13-2023 Albumin [Mass/Vol] 3.7 g/dL 3.2-5.0 [facility] Serum or plasma calcium mauro urement (mass/volume)Ordered By: Gustavo Garcia on 04-13-2023 Calcium [Mass/Vol] 8.6 mg/dL 8.5-10.1 [facility] Serum or plasma creatinine m easurement (mass/volume)Ordered By: Gustavo Garcia on 04-13-2023 Creatinine [Mass/Vol] 0.97 mg/dL 0.70-1.30 [facility] Comment on above: The validity of the calculated GFR & GFRAA in patients over 70 years has not been determined. Clinical correlation is essential. Serum or plasma urea nitroge n measurement (mass/volume)Ordered By: Gustavo Garcia on 04-13-2023 Urea nitrogen [Mass/Vol] 8 mg/dL 7-18 [facility] Thin prep Papanicolaou smear with manual screeningOrdered By: Gustavo Gacria on 04-13-2023 Thin prep Papanicolaou smear with manual screening 10 U/L 15-37 [facility] Thin prep Papanicolaou smear with manual screening 6 5-15 [facility] Absolute lymphocyte counton 05-29-2022 Lymphocytes Auto (Unsp spec) [#/Vol] 2.50 10*3/uL 0.83-4.51 [facility] Work Phone: Basophil percentageon 2021 Basophils/100 WBC (Bld) 0.3 % 0-1 [facility] Work Phone: Bilirubin [Mass/Vol] 0.30 mg/dL 0.20-1.00 [facility] Work Phone: [phone] Comment on above: For patients on eltr ombopag therapy, use of Dimension [place] TBIL is not recommended. Chloride [Moles/Vol] 110 mmol/L 98-107 [facility] Work Phone: Eosinophils/100 WBC (Bld) 0.8 % 0-5 [facility] Work Phone: Glucose [Mass/Vol] 94 mg/dL 74-106 [facility] Work Phone: Neutrophils (Bld) [#/Vol] 8.4 10*3/uL 2.0-7.7 [facility] Work Phone: Neutrophils/100 WBC (Bld) 71.5 % 47-70 [facility] Work Phone: Potassium [Moles/Vol] 3.7 mmol/L 3.5-5.1 [facility] Work Phone: Protein [Mass/Vol] 7.6 g/dL 6.4-8.2 [facility] Work Phone: Sodium [Moles/Vol] 142 mmol/L 136-145 [facility] Work Phone: WBC (Bld) [#/Vol] 11.8 10*3/uL 4.4-11.0 [facility] Work Phone: Blood erythrocytes count (nu mber/volume)on 05-29-2022 RBC (Bld) [#/Vol] 4.87 10*6/uL 4.6-6.2 [facility] Work Phone: Blood hemoglobin measurement (mass/volume)on 05-29-2022 Hemoglobin (Bld) [Mass/Vol] 14.8 g/dL 13.0-16. 5 [facility] Work Phone: Blood lymphocytes/100 leukoc yteson 05-29-2022 Lymphocytes/100 WBC (Bld) 21.2 % 19-41 [facility] Work Phone: Blood monocytes/100 leukocyt eson 05-29-2022 Monocytes/100 WBC (Bld) 5.8 % 0-10 [facility] Work Phone: Blood platelet mean volumeon 05-29-2022 Platelet mean volume (Bld) [Entitic vol] 9.6 fL 6.2-12.0 [facility] Work Phone: Determination of erythrocyte mean corpuscular volume (MCV)on 05-29-2022 MCV (RBC) [Entitic vol] 91.8 fL 80-94 [facility] Work Phone: Hematocrit Auto (Bld) [Volum e fraction]on 05-29-2022 Hematocrit (Bld) [Volume fraction] 44.7 % 40-54 [facility] Work Phone: Laboratory - Chemistry and C hemistry - challengeon 05-29-2022 ALP [Catalytic activity/Vol] 94 U/L 45-117 [facility] Work Phone: ALT [Catalytic activity/Vol] 23 U/L 16-61 [facility] Work Phone: CO2 [Moles/Vol] 26.0 mmol/L 21.0-32.0 [facility] Work Phone: Globulin (S) [Mass/Vol] 3.6 g/dL 2.2-4.2 [facility] Work Phone: Urea nitrogen/Creatinine [Mass ratio] 11.9 mg/mg 10-20 [facility] Work Phone: Laboratory - Drug toxicology on 05-29-2022 Amphetamines Ql (U) Negative <1000 ng/mL [facility] Work Phone: Benzodiazepines Ql (U) Negative < 200 ng/mL [facility] Work Phone: Cannabinoids Screen Ql (U) Positive < 50 ng/m L [facility] Work Phone: Cocaine Ql (U) Negative < 300 ng/mL [facility] Work Phone: Opiates Ql (U) Negative < 300 ng/mL [facility] Work Phone: Laboratory - Hematology and Cell countson 05-29-2022 Erythrocyte distribution width (RBC) [Entitic vol] 42.7 fL 35.1-43.9 [facility] Work Phone: Erythrocyte distribution width (RBC) [Ratio] 12.6 % 11.6-14.6 [facility] Work Phone: Immature granulocytes/100 WBC (Bld) 0.400 % 0.0-0.9 [facility] Work Phone: Comment on above: IG% - Immature Granu locytes (promyelocytes, myelocytes and metamyelocytes) > 1% indicates that a LEFT SHIFT is Present. MCH (RBC) [Entitic mass] 30.4 pg 27.0-32.0 [facility] Work Phone: Nucleated RBC/100 WBC (Bld) [Ratio] 0 % 0-5 [facility] Work Phone: MCHC Auto (RBC) [Mass/Vol]on 05-29-2022 MCHC (RBC) [Mass/Vol] 33.1 g/dL 32-36 [facility] Work Phone: No Panel Informationon 05-29 Estimated Creatinine Clearance Calc 99.56 ml/min [facility] Work Phone: Estimated GFR (MDRD) Amer 92 mL/min >60 [facility] Work Phone: Comment on above: GFR Calc Estimated GFR (MDRD) Non-Af Amer 76 mL/min >60 [facility] Work Phone: Comment on above: Non- GFR Calc Ethyl Alcohol Level < 3.0 mg/dL [facility] Work Phone: Comment on above: The serum:whole bloo d ethanol ratio is approximately 1.14and varies slightly with hematocrit. Medical Alcohol reference interval and critical value innon-tolerant individuals; 50 - 100 Impairment 100 Intoxication 100 - 250 Severe Poisoning 250 - 400 Deep/possible fatal coma MDMA (Ecstasy) Screen Negative < 500 ng/mL [facility] Work Phone: Urine Barbiturates Screen Negative < 200 ng/mL [facility] Work Phone: Urine Drug Screen Comment [facility] Work Phone: Comment on above: CONFIRMATORY TESTING [...] Urine Methadone Screen Negative < 300 ng/mL [facility] Work Phone: [phone] Platelets bldon 05-29-2022 Platelets (Bld) [#/Vol] 336 10*3/uL 150-450 [facility] Work Phone: [phone] Serum or plasma albumin mauro urement (mass/volume)on 05-29-2022 Albumin [Mass/Vol] 4.0 g/dL 3.2-5.0 [facility] Work Phone: [phone] Serum or plasma albumin/glob ulin mass ratioon 05-29-2022 Albumin/Globulin [Mass ratio] 1.1 {ratio} 0.9-2.4 [facility] Work Phone: [phone] Serum or plasma calcium mauro urement (mass/volume)on 05-29-2022 Calcium [Mass/Vol] 9.1 mg/dL 8.5-10.1 [facility] Work Phone: [phone] Serum or plasma creatinine m easurement (mass/volume)on 05-29-2022 Creatinine [Mass/Vol] 1.18 mg/dL 0.70-1.30 [facility] Work Phone: Comment on above: The validity of the calculated GFR & GFRAA in patients over 70 years has not been determined. Clinical correlation is essential. Serum or plasma urea nitroge n measurement (mass/volume)on 05-29-2022 Urea nitrogen [Mass/Vol] 14 mg/dL 7-18 [facility] Work Phone: Thin prep Papanicolaou smear with manual screeningon 05-29-2022 Thin prep Papanicolaou smear with manual screening 17 U/L 15-37 [facility] Work Phone: [phone] Thin prep Papanicolaou smear with manual screening 6 5-15 [facility] Work Phone: Urine phencyclidine (PCP) de tectionon 05-29-2022 Phencyclidine Ql (U) Negative < 25 ng/mL [facility] Work Phone: Absolute lymphocyte counton 01-30-2022 Lymphocytes Auto (Unsp spec) [#/Vol] 0.87 10*3/uL 0.83-4.51 [facility] Work Phone: Basophil percentageon 2021 Basophils/100 WBC (Bld) 0.2 % 0-1 [facility] Work Phone: Chloride [Moles/Vol] 106 mmol/L 98-107 [facility] Work Phone: Eosinophils/100 WBC (Bld) 0.1 % 0-5 [facility] Work Phone: Glucose [Mass/Vol] 109 mg/dL 74-106 [facility] Work Phone: Comment on above: Fasting Glucose resu lt from 100 to 125 mg/dL suggests IMPAIRED HOMEOSTASIS per A.D.A. criteria. Neutrophils (Bld) [#/Vol] 10.6 10*3/uL 2.0-7.7 [facility] Work Phone: Neutrophils/100 WBC (Bld) 89.3 % 47-70 [facility] Work Phone: Potassium [Moles/Vol] 3.6 mmol/L 3.5-5.1 [facility] Work Phone: Sodium [Moles/Vol] 137 mmol/L 136-145 [facility] Work Phone: WBC (Bld) [#/Vol] 11.8 10*3/uL 4.4-11.0 [facility] Work Phone: Blood erythrocytes count (nu mber/volume)on 01-30-2022 RBC (Bld) [#/Vol] 5.28 10*6/uL 4.6-6.2 [facility] Work Phone: Blood hemoglobin measurement (mass/volume)on 01-30-2022 Hemoglobin (Bld) [Mass/Vol] 15.7 g/dL 13.0-16. 5 [facility] Work Phone: [phone] Blood lymphocytes/100 leukoc yteson 01-30-2022 Lymphocytes/100 WBC (Bld) 7.3 % 19-41 [facility] Work Phone: Blood manual differential co mment interpretation (narrative result)on 01-30-2022 Manual differential comment Bebeto (Bld) [Interp] See comment [facility] Work Phone: Comment on above: AUTO DIFF OK Blood monocytes/100 leukocyt eson 01-30-2022 Monocytes/100 WBC (Bld) 2.7 % 0-10 [facility] Work Phone: Blood platelet mean volumeon 01-30-2022 Platelet mean volume (Bld) [Entitic vol] 9.9 fL 6.2-12.0 [facility] Work Phone: Determination of erythrocyte mean corpuscular volume (MCV)on 01-30-2022 MCV (RBC) [Entitic vol] 94.3 fL 80-94 [facility] Work Phone: Hematocrit Auto (Bld) [Volum e fraction]on 01-30-2022 Hematocrit (Bld) [Volume fraction] 49.8 % 40-54 [facility] Work Phone: Laboratory - Chemistry and C hemistry - challengeon 01-30-2022 CO2 [Moles/Vol] 20.0 mmol/L 21.0-32.0 [facility] Work Phone: Urea nitrogen/Creatinine [Mass ratio] 7.0 mg/mg 10-20 [facility] Work Phone: Laboratory - Hematology and Cell countson 01-30-2022 Erythrocyte distribution width (RBC) [Entitic vol] 42.8 fL 35.1-43.9 [facility] Work Phone: Erythrocyte distribution width (RBC) [Ratio] 12.4 % 11.6-14.6 [facility] Work Phone: Immature granulocytes/100 WBC (Bld) 0.400 % 0.0-0.9 [facility] Work Phone: Comment on above: IG% - Immature Granu locytes (promyelocytes, myelocytes and metamyelocytes) > 1% indicates that a LEFT SHIFT is Present. MCH (RBC) [Entitic mass] 29.7 pg 27.0-32.0 [facility] Work Phone: Nucleated RBC/100 WBC (Bld) [Ratio] 0 % 0-5 [facility] Work Phone: MCHC Auto (RBC) [Mass/Vol]on 01-30-2022 MCHC (RBC) [Mass/Vol] 31.5 g/dL 32-36 [facility] Work Phone: No Panel Informationon 01-30 Estimated Creatinine Clearance Calc 102.15 ml/min [facility] Work Phone: Estimated GFR (MDRD) Amer 95 mL/min >60 [facility] Work Phone: Comment on above: GFR Calc Estimated GFR (MDRD) Non-Af Amer 79 mL/min >60 [facility] Work Phone: Comment on above: Non- GFR Calc Platelets bldon 01-30-2022 Platelets (Bld) [#/Vol] 345 10*3/uL 150-450 [facility] Work Phone: Serum or plasma calcium mauro urement (mass/volume)on 01-30-2022 Calcium [Mass/Vol] 9.2 mg/dL 8.5-10.1 [facility] Work Phone: Serum or plasma creatinine m easurement (mass/volume)on 01-30-2022 Creatinine [Mass/Vol] 1.15 mg/dL 0.70-1.30 [facility] Work Phone: Comment on above: The validity of the calculated GFR & GFRAA in patients over 70 years has not been determined. Clinical correlation is essential. Serum or plasma urea nitroge n measurement (mass/volume)on 01-30-2022 Urea nitrogen [Mass/Vol] 8 mg/dL 7-18 [facility] Work Phone: [phone] Thin prep Papanicolaou smear with manual screeningon 01-30-2022 Thin prep Papanicolaou smear with manual screening 11 5-15 [facility] Work Phone: [phone] Absolute lymphocyte counton 12-31-2021 Lymphocytes Auto (Unsp spec) [#/Vol] 2.55 10*3/uL 0.83-4.51 [facility] Work Phone: [phone] Basophil percentageon 2021 Basophils/100 WBC (Bld) 0.1 % 0-1 [facility] Work Phone: [phone] Bilirubin [Mass/Vol] 0.90 mg/dL 0.20-1.00 [facility] Work Phone: [phone] Comment on above: For patients on eltr ombopag therapy, use of Dimension [place] TBIL is not recommended. Chloride [Moles/Vol] 100 mmol/L 98-107 [facility] Work Phone: Eosinophils/100 WBC (Bld) 0.0 % 0-5 [facility] Work Phone: [phone] Glucose [Mass/Vol] 137 mg/dL 74-106 [facility] Work Phone: [phone] Comment on above: Fasting Glucose resu lt greater than or equal to 126 mg/dL suggests DIABETES MELLITUS per A.D.A. criteria. Neutrophils (Bld) [#/Vol] 15.3 10*3/uL 2.0-7.7 [facility] Work Phone: [phone] Neutrophils/100 WBC (Bld) 77.9 % 47-70 [facility] Work Phone: [phone] Potassium [Moles/Vol] 3.1 mmol/L 3.5-5.1 [facility] Work Phone: [phone] Protein [Mass/Vol] 7.2 g/dL 6.4-8.2 [facility] Work Phone: [phone] Sodium [Moles/Vol] 139 mmol/L 136-145 [facility] Work Phone: WBC (Bld) [#/Vol] 19.7 10*3/uL 4.4-11.0 [facility] Work Phone: Blood erythrocytes count (nu mber/volume)on 12-31-2021 RBC (Bld) [#/Vol] 4.94 10*6/uL 4.6-6.2 [facility] Work Phone: Blood hemoglobin measurement (mass/volume)on 12-31-2021 Hemoglobin (Bld) [Mass/Vol] 14.9 g/dL 13.0-16. 5 [facility] Work Phone: Blood lymphocytes/100 leukoc yteson 12-31-2021 Lymphocytes/100 WBC (Bld) 13.0 % 19-41 [facility] Work Phone: Blood manual differential co mment interpretation (narrative result)on 12-31-2021 Manual differential comment Bebeto (Bld) [Interp] SCANNED [facility] Work Phone: Blood monocytes/100 leukocyt eson 12-31-2021 Monocytes/100 WBC (Bld) 8.6 % 0-10 [facility] Work Phone: [phone] Blood platelet adequacy dete ction by light microscopyon 12-31-2021 Platelets LM Ql (Bld) ADEQUATE ADEQ [facility] Work Phone: Blood platelet mean volumeon 12-31-2021 Platelet mean volume (Bld) [Entitic vol] 9.4 fL 6.2-12.0 [facility] Work Phone: [phone] Determination of erythrocyte mean corpuscular volume (MCV)on 12-31-2021 MCV (RBC) [Entitic vol] 90.1 fL 80-94 [facility] Work Phone: [phone] Hematocrit Auto (Bld) [Volum e fraction]on 12-31-2021 Hematocrit (Bld) [Volume fraction] 44.5 % 40-54 [facility] Work Phone: [phone] Laboratory - Chemistry and C hemistry - challengeon 12-31-2021 ALP [Catalytic activity/Vol] 103 U/L 45-117 [facility] Work Phone: [phone] ALT [Catalytic activity/Vol] 21 U/L 16-61 [facility] Work Phone: [phone] CO2 [Moles/Vol] 30.0 mmol/L 21.0-32.0 [facility] Work Phone: [phone] Globulin (S) [Mass/Vol] 3.1 g/dL 2.2-4.2 [facility] Work Phone: [phone] Urea nitrogen/Creatinine [Mass ratio] 7.6 mg/mg 10-20 [facility] Work Phone: [phone] Laboratory - Hematology and Cell countson 12-31-2021 Erythrocyte distribution width (RBC) [Entitic vol] 40.7 fL 35.1-43.9 [facility] Work Phone: Erythrocyte distribution width (RBC) [Ratio] 12.4 % 11.6-14.6 [facility] Work Phone: [phone] Immature granulocytes/100 WBC (Bld) 0.400 % 0.0-0.9 [facility] Work Phone: Comment on above: IG% - Immature Granu locytes (promyelocytes, myelocytes and metamyelocytes) > 1% indicates that a LEFT SHIFT is Present. MCH (RBC) [Entitic mass] 30.2 pg 27.0-32.0 [facility] Work Phone: [phone] Nucleated RBC/100 WBC (Bld) [Ratio] 0 % 0-5 [facility] Work Phone: [phone] MCHC Auto (RBC) [Mass/Vol]on 12-31-2021 MCHC (RBC) [Mass/Vol] 33.5 g/dL 32-36 [facility] Work Phone: [phone] No Panel Informationon 12-31 Estimated Creatinine Clearance Calc 89.68 ml/min [facility] Work Phone: Estimated GFR (MDRD) Amer 82 mL/min >60 [facility] Work Phone: Comment on above: GFR Calc Estimated GFR (MDRD) Non-Af Amer 68 mL/min >60 [facility] Work Phone: Comment on above: Non- GFR Calc Platelets bldon 12-31-2021 Platelets (Bld) [#/Vol] 374 10*3/uL 150-450 [facility] Work Phone: Review by pathologiston 12-04 Pathologist review Bebeto (Unsp spec) [Interp] December yuliana [facility] Work Phone: Pathologist review Bebeto (Unsp spec) [Interp] Reviewed [facility] Work Phone: Comment on above: Previous reported re sult: Lu bridges Edited by: RGOOD on 01/01/22:1152Neutrophilic leukocytosis.Clinical correlation suggested.Sb Varma D.O. 01/01/22 AMENDED REPORT 01/01/22 1152 PATH REV previously reported as: December yuliana Serum or plasma albumin mauro urement (mass/volume)on 12-31-2021 Albumin [Mass/Vol] 4.1 g/dL 3.2-5.0 [facility] Work Phone: Serum or plasma albumin/glob ulin mass ratioon 12-31-2021 Albumin/Globulin [Mass ratio] 1.3 {ratio} 0.9-2.4 [facility] Work Phone: Serum or plasma calcium mauro urement (mass/volume)on 12-31-2021 Calcium [Mass/Vol] 8.8 mg/dL 8.5-10.1 [facility] Work Phone: Serum or plasma creatinine m easurement (mass/volume)on 12-31-2021 Creatinine [Mass/Vol] 1.31 mg/dL 0.70-1.30 [facility] Work Phone: Comment on above: The validity of the calculated GFR & GFRAA in patients over 70 years has not been determined. Clinical correlation is essential. Serum or plasma urea nitroge n measurement (mass/volume)on 12-31-2021 Urea nitrogen [Mass/Vol] 10 mg/dL 7-18 [facility] Work Phone: Thin prep Papanicolaou smear with manual screeningon 12-31-2021 Thin prep Papanicolaou smear with manual screening 12 U/L 15-37 [facility] Work Phone: Thin prep Papanicolaou smear with manual screening 9 5-15 [facility] Work Phone: No Panel Informationon 12-27 Enteric Bacteriology [facility] Work Phone: Gram stain for investigation of transfusion reactionon 12-17-2021 Microscopic observation Gram stain Nom (Unsp spec) [facility] Work Phone: No Panel Informationon 12-17 Nasopharyngeal Culture Pseudomonas aeroginosa [facility] Work Phone: TSCon 06-04-2018 [facility] OF [place]ICE: 06/04/2018Patient is a 27-year-old [...] appearance, afebrile, and appropriate for outpatientmanagement._ Abraham Aguilar, [facility]/[id number]: 06/04/2018 10:57 [facility] PATIENT NAME: AIMEE DUCKWORTH [id number] Radha Trinh [facility] REC #: [id number], [place] [address] STATCARE REPORT STATCARE PHYSICIANDT: 06/05/2018 09:29SSI File#: [id number] #: [id number]/Reviewe d by06/05/18 1018 ANGEL [facility] PATIENT NAME: AIMEE DUCKWORTH [id number] Radha Trinh MEDICAL REC #: [id number], [place] [address] STATCARE REPORT STATCARE PHYSICIAN [facility] DEYVIHÉCTORPRISCILLA [facility]-17-2017 GI -- ----Patient: AIMEE DUCKWORTH ----SPECIMEN: [id number] Collection Date: 07/17/17-1011 Received: 07/22/17 Status: ERIC Nesbitt Dr.: Ashtyn Moreira MD Ph# Othr. : Hailey Jarquin NP Material for Examination: A ESOPHAGEAL BX @ 39 CM, R/O PONCE'S PRE-OP DIAGNOSIS: ULCER OF ESOPHAGUS POST-OP DIAGNOSIS: NONE GIVEN SURGICAL PROCEDURE: NONE GIVEN SPECIMEN COMMENTS: RECEIVED FROM [facility], [address] [place] [address] 2 Jan SLIDES LABELED [id number] DONITAAIMEE L1,[id number] A. Esophagus, at 39 cm; multiple biopsies: [...] Phonetic and/or minor grammatical errors may exist. [facility] NAME: AIMEE DUCKWORTH Pathology and Laboratory Medicine UNIT#: [id number] LOC: [facility] Rn Progressive Care Unit: Rula Ryan M.D. ROOM/BED: [facility] : 89 AGE/SEX: 26/M ORD.Ashtyn Mitchell MD END OF REPORT Normal [facility] [place] Gram stain for investigation of transfusion reaction Microscopic observation Gram stain Nom (Unsp spec) [facility] Work Phone: No Panel Information Nasopharyngeal Culture Pseudomonas aeroginosa [facility] Work Phone: Vital Signs Date Time Vital Sign Value Performing Clinician Faci kany 04-22-2025 11:54-0400 Body temperature 98.1 [degF] Dr. Kamron Erickson MD Work Phone: [facility] 04-22-2025 11:54-0400 Diastolic blood pressure 94 mm[Hg] Dr. Kamron Erickson MD Work Phone: [facility] 04-22-2025 11:54-0400 Heart rate 68 /min Dr. Kamron Erickson MD Work Phone: [facility] 04-22-2025 11:54-0400 Respiratory rate 16 /min Dr. Kamron Erickson MD Work Phone: [facility] 04-22-2025 11:54-0400 SaO2% (BldA) [Mass fraction] 97 % Dr. Kamron Erickson MD Work Phone: 1(619)310-803052 [place] [address] 04-22-2025 11:54-0400 Systolic blood pressure 152 mm[Hg] Dr. Kamron Erickson MD Work Phone: 3(489)613-948554 [place] [address] 04-22-2025 07:38-0400 Body height 182.[address] Kamron Erickson MD Work Phone: 3(772)410-962754 [place] [address] 04-22-2025 07:38-0400 Body mass index (BMI) [Ratio] 35.2 kg/m2 Dr. Kamron Erickson MD Work Phone: 7(777)563-140754 [place] [address] 04-22-2025 07:38-0400 Body weight [address] Kamron Erickson MD Work Phone: 7(144)362-724754 [place] [address] 04-21-2025 03:26-0400 Body temperature 99 [degF] Dr. Kamron Erickson MD Work Phone: 1(475)671-520554 [place] [address] 04-21-2025 03:26-0400 Diastolic blood pressure 97 mm[Hg] Dr. Kamron Erickson MD Work Phone: 3(430)125-305054 [place] [address] 04-21-2025 03:26-0400 Heart rate 102 /min Dr. Kamron Erickson MD Work Phone: 7(953)314-903954 [place] [address] 04-21-2025 03:26-0400 Respiratory rate 16 /min Dr. Kamron Erickson MD Work Phone: 6(688)064-203154 [place] [address] 04-21-2025 03:26-0400 SaO2% (BldA) [Mass fraction] 97 % Dr. Kamron Erickson MD Work Phone: 1(910)374-331754 [place] [address] 04-21-2025 03:26-0400 Systolic blood pressure 145 mm[Hg] Dr. Kamron Erickson MD Work Phone: 5(557)684-164254 [place] [address] 04-21-2025 02:04-0400 Body height 182.[address] Kamron Erickson MD Work Phone: 7(958)768-005154 [place] [address] 04-21-2025 02:04-0400 Body mass index (BMI) [Ratio] 35.6 kg/m2 Dr. Kamron Erickson MD Work Phone: 2(501)841-614654 [place] [address] 04-21-2025 02:04-0400 Body weight 119.[address] Kamron Erickson MD Work Phone: 7(077)387-500954 [place] [address] 11-03-2024 23:54-0400 Heart rate 68 /min Dr. Kamron Erickson MD Work Phone: 5(329)554-570254 [place] [address] 11-03-2024 23:54-0400 Respiratory rate 18 /min Dr. Kamron Erickson MD Work Phone: 5(492)515-628654 [place] [address] 11-03-2024 23:54-0400 SaO2% (BldA) [Mass fraction] 94 % Dr. Kamron Erickson MD Work Phone: 6(553)437-060754 [place] [address] 11-03-2024 21:30-0400 Body temperature 97.7 [degF] Dr. Kamron Erickson MD Work Phone: 7(784)640-127054 [place] [address] 11-03-2024 21:30-0400 Diastolic blood pressure 91 mm[Hg] Dr. Kamron Erickson MD Work Phone: 5(828)859-071354 [place] [address] 11-03-2024 21:30-0400 Systolic blood pressure 109 mm[Hg] Dr. Kamron Erickson MD Work Phone: 9(212)632-457054 [place] [address] 11-03-2024 09:24-0400 Body height 182.[address] Kamron Erickson MD Work Phone: 0(009)374-750954 [place] [address] 11-03-2024 09:24-0400 Body weight 131.[address] Kamron Erickson MD Work Phone: 9(026)321-604854 [place] [address] 11-03-2024 07:00-0400 Inhaled oxygen flow rate 2 L/min Dr. Kamron Erickson MD Work Phone: 5(133)717-817154 [place] [address] 11-03-2024 06:00-0400 Body mass index (BMI) [Ratio] 39.1 kg/m2 Dr. Kamron Erickson MD Work Phone: 2(871)223-209554 [place] [address] 11-02-2024 13:38-0400 Body temperature 97.7 [degF] Dr. Kamron Erickson MD Work Phone: 2(676)334-235054 [place] [address] 11-02-2024 13:38-0400 Diastolic blood pressure 78 mm[Hg] Dr. Kamron Erickson MD Work Phone: [facility] 11-02-2024 13:38-0400 Heart rate 87 /min Dr. Kamron Erickson MD Work Phone: 3(849)839-089152 [place] [address] 11-02-2024 13:38-0400 Respiratory rate 16 /min Dr. Kamron Erickson MD Work Phone: 1(002)745-883152 [place] [address] 11-02-2024 13:38-0400 SaO2% (BldA) [Mass fraction] 98 % Dr. Kamron Erickson MD Work Phone: 8(232)047-851754 [place] [address] 11-02-2024 13:38-0400 Systolic blood pressure 107 mm[Hg] Dr. Kamron Erickson MD Work Phone: 8(368)044-510254 [place] [address] 11-02-2024 11:24-0400 Body height 182.[address] Kamron Erickson MD Work Phone: 8(457)749-916654 [place] [address] 11-02-2024 11:24-0400 Body mass index (BMI) [Ratio] 39.2 kg/m2 Dr. Kamron Erickson MD Work Phone: 3(060)982-399854 [place] [address] 11-02-2024 11:24-0400 Body weight [address] Kamron Erickson MD Work Phone: 6(598)327-644454 [place] [address] 08-04-2024 08:51-0500 Body temperature 97.9 [degF] Dr. Kamron Erickson MD Work Phone: 0(161)143-321252 [place] [address] 08-04-2024 08:51-0500 Diastolic blood pressure 81 mm[Hg] Dr. Kamron Erickson MD Work Phone: 6(556)315-977102 [address] 08-04-2024 08:51-0500 Heart rate 74 /min Dr. Kamron Erickson MD Work Phone: 9(405)910-980652 [place] [address] 08-04-2024 08:51-0500 Respiratory rate 16 /min Dr. Kamron Erickson MD Work Phone: 0(970)731-932852 [place] [address] 08-04-2024 08:51-0500 SaO2% (BldA) [Mass fraction] 97 % Dr. Kamron Erickson MD Work Phone: [facility] 08-04-2024 08:51-0500 Systolic blood pressure 124 mm[Hg] Dr. Kamron Erickson MD Work Phone: [facility] 08-03-2024 12:44-0500 Body mass index (BMI) [Ratio] 34.2 kg/m2 Dr. Kamron Erickson MD Work Phone: [facility] 08-03-2024 12:44-0500 Body weight 114.[address] Kamron Erickson MD Work Phone: [facility] 04-13-2023 07:01-0400 Diastolic blood pressure 59 mm[Hg] [facility] 04-13-2023 07:01-0400 Heart rate 66 /min [facility] 04-13-2023 07:01-0400 Respiratory rate 15 /min [facility] 04-13-2023 07:01-0400 SaO2% (BldA) [Mass fraction] 100 % [facility] 04-13-2023 07:01-0400 Systolic blood pressure 104 mm[Hg] [facility] 04-13-2023 04:07-0400 Body height 182.88 cm [facility] 04-13-2023 04:07-0400 Body mass index (BMI) [Ratio] 36.1 kg/m2 [facility] 04-13-2023 04:07-0400 Body temperature 97.6 [degF] [facility] 04-13-2023 04:07-0400 Body weight 121 kg [facility] 05-30-2022 08:38-0400 Diastolic blood pressure 81 mm[Hg] [facility] Work Phone: 05-30-2022 08:38-0400 Heart rate 90 /min [facility] Work Phone: 05-30-2022 08:38-0400 Respiratory rate 15 /min [facility] Work Phone: 05-30-2022 08:38-0400 SaO2% (BldA) [Mass fraction] 100 % [facility] Work Phone: 05-30-2022 08:38-0400 Systolic blood pressure 138 mm[Hg] [facility] Work Phone: 05-30-2022 06:18-0400 Body temperature 97.9 [degF] [facility] Work Phone: 05-29-2022 20:56-0400 Body height 182.88 cm [facility] Work Phone: 05-29-2022 20:56-0400 Body mass index (BMI) [Ratio] 33 kg/m2 [facility] Work Phone: 05-29-2022 20:56-0400 Body weight 110.6 kg [facility] Work Phone: 01-30-2022 14:47-0400 Body height 182.88 cm [facility] Work Phone: 01-30-2022 14:47-0400 Body mass index (BMI) [Ratio] 32.4 kg/m2 [facility] Work Phone: 01-30-2022 14:47-0400 Body temperature 97 [degF] [facility] Work Phone: 01-30-2022 14:47-0400 Body weight 108.47 kg [facility] Work Phone: 01-30-2022 14:47-0400 Diastolic blood pressure 102 mm[Hg] [facility] Work Phone: 01-30-2022 14:47-0400 Heart rate 124 /min [facility] Work Phone: 01-30-2022 14:47-0400 Respiratory rate 16 /min [facility] Work Phone: 01-30-2022 14:47-0400 SaO2% (BldA) [Mass fraction] 98 % [facility] Work Phone: 01-30-2022 14:47-0400 Systolic blood pressure 130 mm[Hg] [facility] Work Phone: 12-31-2021 04:11-0400 Diastolic blood pressure 90 mm[Hg] [facility] Work Phone: 12-31-2021 04:11-0400 Heart rate 82 /min [facility] Work Phone: 12-31-2021 04:11-0400 Respiratory rate 20 /min [facility] Work Phone: 12-31-2021 04:11-0400 SaO2% (BldA) [Mass fraction] 94 % [facility] Work Phone: 12-31-2021 04:11-0400 Systolic blood pressure 137 mm[Hg] [facility] Work Phone: 12-31-2021 01:56-0400 Body height 182.88 cm [facility] Work Phone: 12-31-2021 01:56-0400 Body mass index (BMI) [Ratio] 34 kg/m2 [facility] Work Phone: 12-31-2021 01:56-0400 Body temperature 98.9 [degF] [facility] Work Phone: 12-31-2021 01:56-0400 Body weight 113.7 kg [facility] Work Phone: Encounters Encounter Date Encounter Type Care Provider Facility Start: 04-22-2025 End: 04-22-2025 Emergency department patient visit [facility] Facility:[facility] Start: 04-21-2025 End: 04-21-2025 Emergency department patient visit Dr. Kamron Erickson MD Work Phone: -Emergency Department Work Phone: Start: 11-03-2024 Non-patient / Non-visit Dr. Román martinez MD -[facility] Work Phone: Start: 11-02-2024 Non-patient / Non-visit Dr. Román martinez MD -[facility] Work Phone: Start: 11-02-2024 ambulatory Kamron Erickson Facility:[facility] Start: 11-02-2024 End: 11-04-2024 Evaluation and management of inpatient Dr. Román Sandoval MD -Intensive Care Unit Work Phone: Start: 08-03-2024 End: 08-04-2024 Emergency department patient visit Dr. Rodriguez Beavers DO -Emergency Department Work Phone: Start: 06-02-2024 End: 06-02-2024 Emergency department patient visit Kamron [place] Facility:[facility] Start: 05-06-2023 End: 05-07-2023 Emergency department patient visit VIDALAshwini BAEZ [facility] Start: 04-13-2023 End: 04-13-2023 Emergency department patient visit [facility] Work Phone: Start: 05-29-2022 End: 05-30-2022 Emergency department patient visit [facility] Start: 01-30-2022 End: 01-30-2022 Emergency department patient visit [facility] Start: 12-31-2021 End: 12-31-2021 Emergency department patient visit [facility] Start: 12-27-2021 End: 12-27-2021 Patient encounter procedure [facility], Specimen Start: 12-17-2021 End: 12-17-2021 Patient encounter procedure [facility], [facility] Start: 06-04-2018 Patient encounter procedure Abraham Aguilar Facility:[facility] Start: 07-17-2017 Patient encounter procedure Ashtyn Moreira Facility:[facility] Procedures Date Procedure Procedure Detail Performing Clinician Start: 04-22-2025 Urnls dip stick/tabl et reagent auto microscopy Dr. Kamron Erickson MD Work Phone: Start: 04-22-[address] Kamron Erickson MD Work Phone: Start: 04-21-[address] Kamron [...] Treatment Date Care Activity Detail Author Start: 04-22-2025 [facility] Start: 04-21-2025 [facility] Start: 11-03-2024 Care planning and problem solving actions [facility] Start: 11-03-2024 Electrocardiographic procedure [facility] Start: 11-03-2024 Serum inorganic phosphate measurement [facility] Start: 11-03-2024 Patient discharge [facility] Start: 11-02-2024 Suicide precautions [facility] Start: 11-02-2024 Following clinical pathway protocol [facility] Start: 11-02-2024 Ambulation without limitation [facility] Start: 11-02-2024 Assessment of risk of venous thromboembolism [facility] Start: 11-02-[address] [facility] Start: 11-02-2024 Inhalation therapy procedure [facility] Start: 11-02-2024 Insertion of catheter into peripheral vein [facility] Start: 11-02-2024 Measuring intake and output [facility] Start: 11-02-2024 Oxygen therapy [facility] Start: 11-02-2024 Providing care according to standard [facility] Start: 11-02-2024 Vital signs measurements [facility] Start: 11-02-2024 [facility] Start: 11-02-2024 Verification routine [facility] Start: 11-02-2024 Admission procedure [facility] Start: 11-02-2024 Seizure precautions [facility] Start: 11-02-2024 Referral to service [facility] Start: 11-02-2024 End: 11-02-2024 Suicide precautions [facility] Start: 11-02-2024 Consultation [facility] Start: 08-03-2024 [facility] Start: 08-03-2024 Suicide precautions [facility] Start: 01-30-2022 Plain chest X-ray Chest 1 View (Portable) [facility] Work Phone: Start: 01-30-2022 XR Chest Single view [facility] Work Phone: Start: 01-30-2022 End: 01-30-2022 [facility] Work Phone: Start: 12-27-2021 Ova and Parasites Ova and Parasites [facility] Work Phone: Start: 12-17-2021 Nasopharyngeal Culture Nasopharyngeal Culture [facility] Work Phone: Alanine aminotransfe rase [Enzymatic activity/volume] in Serum or Plasma [facility] Albumin [Mass/volume ] in Serum or Plasma [facility] Alkaline phosphatase [Enzymatic activity/volume] in Serum or Plasma [facility] Amphetamines [Presen ce] in Urine by Screen method >1000 ng/mL [facility] Anion gap in Serum or Plasma [facility] Benzodiazepine measu rement, urine [facility] Bilirubin, total measurement [facility] BUN/Creatinine ratio [facility] Calcium [Mass/volume ] in Serum or Plasma [facility] Carbon dioxide, tota l [Moles/volume] in Central venous blood [facility] Cocaine measurement, urine [facility] Creatinine [Mass/vol ume] in Serum or Plasma [facility] Erythrocyte mean cor puscular volume determination [facility] fentaNYL [Presence] in Urine by Screen method [facility] Glucose [Mass/volume ] in Serum or Plasma [facility] Hematocrit [Volume F raction] of Blood [facility] Hemoglobin [Mass/vol ume] in Blood [facility] Leukocytes [#/volume] in Blood [facility] Magnesium measurement [facility] Mean corpuscular hem oglobin concentration determination [facility] Mean corpuscular hem oglobin determination [facility] Measurement of renal function [facility] Methadone measurement, urine [facility] Neutrophil count [facility] Neutrophil percent differential count [facility] Patient Education [facility] Work Phone: Patient referral [facility] Work Phone: Phencyclidine [Prese nce] in Urine [facility] Platelets [#/volume] in Blood [facility] Potassium measurement [facility] Red blood cell count [facility] Red cell distributio n width determination [facility] Serum chloride measurement [facility] Sodium measurement [facility] Total protein measurement [facility] Urea nitrogen [Mass/ volume] in Serum or Plasma [facility] Urine cannabinoid measurement [facility] Urine opiate measurement [facility] Payers Date Payer Category Payer Self-pay [id number] 2020 Medicaid [id number] 2020 Medicare [id number] 2016 Unknown [id number] 2007 Unknown [id number] 1990 Unknown [id number]. [id number] Unknown [id number] 2.16.8 [id number] Unknown [id number] 2.16.8 [id number] Unknown [id number] 2.16.8 [id number] Unknown [id number] 2.16.8 [id number] Unknown [id number] 2.16.8 [id number] Unknown [id number] 2.16.8 [id number] Unknown [id number] 2.16.8 [id number] Unknown [id number] 2.16.8 [id number] Unknown [id number] 2.16.8 [id number] Unknown [id number] 2.16.8 [id number] Social History Date Type Detail Facility Start: 12-04-2018 End: 04-13-2023 Tobacco smoking status MIIS Unknown if ever smoked [facility] Start: 1990 Sex Assigned At Male [facility] Start: 11-02-2024 End: 04-22-2025 Tobacco smoking status NHIS Smokes tobacco daily (finding) [facility] Start: 11-02-2024 End: 11-04-2024 Sex Male (finding) [facility] Sex Male [facility] Goals Date Patient Goal Desired Activity /State Functional Status Date Assessment Result Facility 11-03-2024 Functional status Ambulates;Bedside Commo de [facility] Work Phone: Mental Status Date Assessment Result Facility 11-03-2024 Cognitive function Voice/Name [facility] Work Phone: Clinical Notes 04-13-2023 to 04-22-2025 Note Date & Type Note Facility 04-22-2025 Discharge summary [facility] 04-21-2025 Discharge summary [facility] 04-21-2025 Radiology Diagnostic study note [facility] [address] [place], [place] [address] Abdomen/Pelvis W IV Cont ONLY MR#: [id number] Acct: [id number] Name: AIMEE DUCKWORTH Rep #: [id number] : 1990 M 34 From: Blessing Weir MD PCP: Dr. Kamron Erickson MD Status: REG ER Study:Abdomen/Pelvis W IV Cont ONLY Date of E xam: 04/21/25 Exam# [id number] Ordering Dr: Violet York DO PROCEDURE: ABDOMEN/PELVIS [...] pneumatosis coli. Mild diffuse spondylosis. Reading Location: [place] [address] CC: Dr. Kamron Erickson MD; Diomedes York DO ~ [employer]: Signed [facility] 04-21-2025 Hospital Discharge instructions Additional Instructions Your [...] ER should you have any further concerns [facility] Work Phone: 11-04-2024 Note [facility] Medical Records Department [address] [place] [address] Discharge Summary 11/04/24 0829 MR#: [id number] Acct: [id number] Name: AIMEE DUCKWORTH Rep #: [id number] : 1990 34 From: Román Sandoval MD PCP: Dr. Kamron Erickson MD Status:DIS IN Location: [facility] [id number] Providers Date of Admission: 11/02/24 Date of [...] 234 mg IM (more content not included)... [facility] 11-03-2024 Progress note Note Date/Time November 03, 2024 8:00am [facility] Medical Records Department [address] [place] [address] Progress Note - Hospitalist 11/03/24 0715 MR#: [id number] Acct: [id number] Name: AIMEE DUCKWORTH Rep #:[id number] : 1990 34 From: Román Sandoval MD PCP: Dr. Kamron Erickson MD Status:ADM IN Location: ICU ICU05-1 Reason for Visit Reason for Visit: Diagnoses [...] % (Auto) 54.1, Lymph % (Auto) 24.9, Randolph % (Auto) 18.0 H, Eos % (Auto) [...] % (Auto) 63.5, Lymph % (Auto) 19.2, Randolph % (Auto) 16.0 H, Eos % (Auto) [...] Minutes A Charges/Coding Visit Charges Inpatient E&M: 29219 Subs Hosp L2 11/03/24 0800 <Electronically signed by Román Sandoval MD> Cosigner Signature (if applicable): CC: ~ Signed [facility] Work Phone: 1(160) 746-223104-02-2025 Progress note [facility] Medical Records Department [address] [place] [address] Progress Note - Hospitalist 11/03/24714 MR#: [id number] Acct: [id number] Name: AIMEE DUCKWORTH Rep #:[id number] : [...] % (Auto) 54.1, Lymph % (Auto) 24.9, Randolph % (Auto) 18.0 H, Eos % (Auto) [...] % (Auto) 63.5, Lymph % (Auto) 19.2, Randolph % (Auto) 16.0 H, Eos % (Auto) [...] Minutes A Charges/Coding Visit Charges Inpatient E&M: 83204 Subs Hosp L2 11/03/24 0800 Cosigner Signature (if applicable): CC: ~ Signed [facility]04-01-2025 History and physical note Author Román Sandoval [facility] Note Date/Time November 02, 2024 1:11 pm [facility] Medical Records Department [address] [place] [address] H&P Exam - Hospitalist 11/02/24 1306 MR#: [id number] Acct: [id number] Name: AIMEE DUCKWORTH Rep #:[id number] : [...] % (Auto) 54.1, Lymph % (Auto) 24.9, Randolph% (Auto) 18.0 H, Eos % (Auto) 2.1, [...] Multi Select Codes Visit Charges Visit Charges: 29678 Init Hosp Hospitalists' Procedures Procedures: 02718 Advncd Care Plan 30 Min 11/02/24 1311 <Electronically signed by Román Sandoval MD> Cosigner Signature (if applicable): CC: Dr. Román Sandoval MD; Dr. Kamron Erickson MD~ Signed [facility] Work Phone: 1(693) 922-500204-01-2025 Discharge summary Author Tramaine Tovar [facility] Note Date/Time November 02, 2024 12:5 7pm [facility] Medical Records Department [address] [place] [address] Emergency Department Summary 11/02/24 MR#: [id number] Acct: [id number] Name: AIMEE DUCKWORTH Rep #:[id number] : 1990 34 From: Tramaine Tovar MD PCP: Dr. 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 Patient has attempted suicide in [facility]. Patient has been hospitalized for suicidal [...] % (Auto) 54.1 Lymph % (Auto) 24.9 Randolph % (Auto) 18.0 H Eos % (Auto) [...] which may be due to the trazodone. GA interval is under 58 ms. Cures duration 110 ms. QT duration 458 ms. Hammond is normal.) Management Discussion w/another healthcare provider: Hospitalist (Hospitalist was paged at 1252 for admission. Case was discussed with Dr. Serrato who accepted patient. Full admit ICU) Critical Care Time Critical Care Time: Yes Critical care time (excluding procedures): 30-74 minutes (33), Including time spent: (History, physical, documentation, independent rotation laboratory results and EKG), Discussing w/Patient &/or Family/Magnetometer Operator, Discussing w/Consultants and Arranging Admission or Transfer Discharge Plan Dx/Rx/DC Orders Clinical Impression: Intentional overdose, Prolonged QT interval, Intentional overdose of trazodone,Somnolence, Depression, major Disposition Disposition: [facility] What to do if you have Problems For any increased pain, shortness of breath, bleeding, nausea or vomiting, chestpain, or any unexpected problems, contact your Primary Care Provider. Call [facility] ([phone]) or report to the closest Emergency Room. Call 911 if necessary. 11/02/24 1257 <Electronically signed by Tramaine Tovar MD> Cosigner Signature (if applicable): CC: Dr. Kamron Erickson MD ~ Signed [facility] Work Phone: 1(685) 219-512304-01-2025 Evaluation note* Diagnosis Onset Date Resolution Status Admit Date Intentional overdose of trazodone acute November 02, 2024 12:55pm Prolonged QT interval acute Nov 12:55pm [facility] Work Phone: 1(599) 467-944704-01-2025 History and physical note [facility] Medical Records Department [address] [place] [address] H&P Exam - Hospitalist 11/02/24 1306 MR#: [id number] Acct: [id number] Name: AIMEE DUCKWORTH Rep #:[id number] : [...] % (Auto) 54.1, Lymph % (Auto) 24.9, Randolph% (Auto) 18.0 H, Eos % (Auto) 2.1, [...] Multi Select Codes Visit Charges Visit Charges: 74257 Init Hosp L3 Hospitalists' Procedures Procedures: 48395 Advncd Care Plan 30 Min 11/02/24 1311 Cosigner Signature (if applicable): CC: Dr. Román Sandoval MD; Dr. Kamron Erickson MD~ Signed [facility]04-01-2025 Discharge summary [facility] Medical Records Department [address] [place] [address] Emergency Department Summary 11/02/24 MR#: [id number] Acct: [id number] Name: AIMEE DUCKWORTH Rep #:[id number] : 1990 34 From: Tramaine Tovar MD PCP: Dr. 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 Patient has attempted suicide in [facility]. Patient has been hospitalized forsuicidal ideation/attempt. [...] % (Auto) 54.1 Lymph % (Auto) 24.9 Randolph % (Auto) 18.0 H Eos % (Auto) [...] which may be due to the trazodone. GA interval is under 58 ms. Cures duration 110 ms. QT duration 458 ms. Hammond is normal.) Management Discussion w/another healthcare provider: Hospitalist (Hospitalist was paged at 1252 for admission.Case was discussed with Dr. Serrato who accepted patient. Full admit ICU) Critical Care Time Critical Care Time: Yes Critical care time (excluding procedures): 30-74 minutes (33), Including time spent: (History, physical, documentation, independent rotation laboratory results and EKG), Discussing w/Patient &/orFamily/Magnetometer Operator, Discussing w/Consultants and Arranging Admission or Transfer Discharge Plan Dx/Rx/DC Orders Clinical Impression: Intentional overdose, Prolonged QT interval, Intentional overdose of trazodone,Somnolence, Depression, major Disposition Disposition: [facility] What to do if you have Problems For any increased pain, shortness of breath, bleeding, nausea or vomiting, chestpain, or any unexpected problems, contact your Primary Care Provider. Call [facility] ([phone]) or report tothe closest Emergency Room. Call 911 if necessary. 11/02/24 1257 Cosigner Signature (if applicable): CC: Dr. Kamron Erickson MD ~ Signed [facility]09-10-2023 Discharge summary Author Gustavo Garcia [facility] April 13, 2023 7:22am Note Date/Time April 13, 2023 4:18am [facility] Medical Records Department [address] [place] [address] Emergency Department Summary 04/13/23 MR#: [id number] Acct: [id number] Name: AIMEE DUCKWORTH Rep #:[id number] : [...] episode. He is on any blood thinners. [facility] Medical History Asthma Migraines Home Medications escitalopram [...] 82.3 H Lymph % (Auto) 11.2 L Randolph % (Auto) 4.5 Eos % (Auto) 1.3 [...] 7:15 EDT Reading Location ID and State: [facility] / [place] , Service support , Discharge Plan Triage [...] your Primary Care Provider. Call [facility] ([phone]) or report to the closest Emergency Room. Call 911 if necessary. 04/13/23721 <Electronically signed by Gustavo Garcia DO> Cosigner Signature (if applicable): CC: Dr. Kamron Erickson MD ~ Signed [facility] Work Phone: Discharge summary Author Tramaine Tovar [facility] Note Date/Time November 02, 2024 12:5 7pm [facility] Medical Records Department [address] [place] [address] Emergency Department Summary 11/02/24 MR#: [id number] Acct: [id number] Name: AIMEE DUCKWORTH Rep #:[id number] : 1990 34 From: Tramaine Tovar MD PCP: Dr. 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 Patient has attempted suicide in [facility]. Patient has been hospitalized for suicidal [...] % (Auto) 54.1 Lymph % (Auto) 24.9 Randolph % (Auto) 18.0 H Eos % (Auto) [...] which may be due to the trazodone. GA interval is under 58 ms. Cures duration 110 ms. QT duration 458 ms. Hammond is normal.) Management Discussion w/another healthcare provider: Hospitalist (Hospitalist was paged at 1252 for admission. Case was discussed with Dr. Serrato who accepted patient. Full admit ICU) Critical Care Time Critical Care Time: Yes Critical care time (excluding procedures): 30-74 minutes (33), Including time spent: (History, physical, documentation, independent rotation laboratory results and EKG), Discussing w/Patient &/or Family/Magnetometer Operator, Discussing w/Consultants and Arranging Admission or Transfer Discharge Plan Dx/Rx/DC Orders Clinical Impression: Intentional overdose, Prolonged QT interval, Intentional overdose of trazodone,Somnolence, Depression, major Disposition Disposition: Acute Care Hospital [facility] What to do if you have Problems For any increased pain, shortness of breath, bleeding, nausea or vomiting, chestpain, or any unexpected problems, contact your Primary Care Provider. Call [facility] ([phone]) or report to the closest Emergency Room. Call 911 if necessary. 11/02/24 1257 <Electronically signed by Tramaine Tovar MD> Cosigner Signature (if applicable): CC: Dr. Kamron Erickson MD ~ Signed [facility] Work Phone: Discharge summary Author Diomedes York [facility] Note Date/Time April 21, 2025 3:29am [facility] Medical Records Department [address] [place] [address] Emergency Department Summary 04/21/25 MR#: [id number] Acct: [id number] Name: AIMEE DUCKWORTH Rep #:[id number] : [...] secondary to this he presents for evaluation. [facility] Medical History Spinal stenosis Schizophrenia Depression Anxiety [...] 81.1 H Lymph % (Auto) 12.5 L Randolph % (Auto) 5.4 Eos % (Auto) 0.2 [...] pneumatosis coli. Mild diffuse spondylosis. Reading [facility] [address] Discharge Plan Triage Chief Complaint: Nausea/Vomiting ED [...] BID Primary Care Provider: Kamron Erickson Referrals: Kamron Erickson MD [Primary Care Provider, Family Practice] [...] you have any further concerns Print Language: Burmese Disposition Disposition: Home, Self Care What to do if you have Problems For any increased pain, shortness of breath, bleeding, nausea or vomiting, chestpain, or any unexpected problems, contact your Primary Care Provider. Call [facility] ([phone]) or report to the closest Emergency Room. Call 911 if necessary. 04/21/25 0329 <Electronically signed by Diomedes York DO> Cosigner Signature (if applicable): CC: Dr. Kamron Erickson MD ~ Signed [facility] Work Phone: Discharge summary Author Rodriguez Beavers [facility] Note Date/Time April 22, 2025 11:55am [facility] Medical Records Department [address] [place] [address] Emergency Department Summary 04/22/25 MR#: [id number] Acct: [id number] Name: AIMEE DUCKWORTH Rep #:[id number] : 1990 34 From: Rodriguez Murrell PCP: Dr. Kamron Erickson MD Status:DEP ER Location: ED HPI History of Present Illness Chief Complaint: Abd Pain PFSH PFSH Medical History Spinal stenosis Schizophrenia Depression Anxiety [...] tablet (Compazine) vomiting 7 days #21 tabs promethazine 25 mg tablet 25 mg PO Q6H PRN nausea and 04/22/25 Unknown Rx vomiting 7 days #30 tabs Allergy/AdvReac Type Severity Reaction Status Date / Time Sulfa (Sulfonamide Allergy Unknown Verified 04/22/25 07:38 Antibiotics) sulfisoxazole (From Allergy Hives Verified 04/22/25 07:38 [place]) Social History (System 06/10/24 @ 07:12 by Fernanda Roblero) household members: family Smoking Status: Current every day smoker tobacco type: cigarettes and e- cigarettes EXAM Physical Exam Const Vital Signs: 04/22/25 07:38 04/22/25 09:38 04/22/25 11:00 Temperature 98.1 F Temperature Source Temporal Pulse Rate 117 H 97 68 Respiratory Rate 14 16 Blood Pressure 180/100 H 163/114 H 141/93 H Blood Pressure Mean 126 130 109 Pulse Ox 98 99 97 Oxygen Delivery Method Room Air Room Air Room Air 04/22/25 11:54 Temperature 98.1 F Temperature Source Pulse Rate 68 Respiratory Rate 16 Blood Pressure 152/94 H Blood Pressure Mean 113 Pulse Ox 97 Oxygen Delivery Method MDM MDM MDM Narrative Medical decision making narrative: HISTORY OF PRESENT ILLNESS: Chief complaint: Abdominal pain 34-year-old male history of schizophrenia, anxiety, depression presents abdominal pain. Denies any abdominal pain now but notes nausea and vomiting this morning. 4 episodes of nonbloody bilious vomitus was noted. Notes diarrhea as well. Denies recent travel, antibiotics or sick contacts. Notes hesmokes marijuana. Notes he typically smokes as much as he can however has not smoked recently given nausea and vomiting. REVIEW OF SYSTEMS: Pertinent positives: Abdominal pain, nausea, vomiting Pertinent negatives: Hematemesis, melena or hematochezia PHYSICAL EXAM: Nursing triage notes reviewed, Vital signs reviewed Constitutional: please see mdm HENT: MMM Eyes: Pupils equal round and reactive to light, Extraocular muscles intact Neck: No stridor, no JVD, full neck ROM Lungs: Clear to auscultation, No wheezing or rales. No increased work of breathing, no conversational dyspnea, no accessory muscle use, no nasal flaring. No respiratory distress noted Heart: Regular rate and rhythm, No murmurs, No rubs and No gallops, 2+ distal pulses (radial, femoral, posterior tibial) in all extremities Abdomen: Soft, there is no tenderness, rigidity, rebound or guarding, no obviousperitoneal signs, no palpable pulsatile abdominal masses, no auscultated abdominal bruit : No CVAT Extremities: No edema Neuro: No new focal neurological deficits, cranial nerves II through XII intact,5/5 strength in all present extremities. Intact sensation to light touch in all present extremities, 2+ reflexes bilateral patella tendons. Skin: No rash or lesions noted MEDICAL DECISION MAKING: Chief Complaint: please see HPI External records reviewed: Reviewed CT scan abdomen pelvis from yesterday (04/21/2025) showed mild hepatic steatosis, gastritis, enteritis, colitis Factors affecting care: as per HPI Social determinants of health: Notes marijuana use History obtained from others: Mother Consults: none [facility] Narrative: The patient was initially hypertensive with a blood pressure 180/100, tachycardic with a heart rate of 117, afebrile and nontoxic-appearing otherwise. Abdominal exam benign. Not consistent with obstruction perforation or other surgical emergency. I considered the following differential diagnosis: AAA, small bowel obstruction,abdominal perforation, appendicitis, pancreatitis, hepatobiliary pathology (acute cholecystitis), mesenteric ischemia, pathology (ie nephrolithiasis, pyelonephritis). I obtained labs to further determine if the patient was suffering from a life-threatening etiology. Initially treat the patient with IV fluids, 4 mg IV morphine, 15 mg IV Toradol, and Zofran for symptomatic control Did not obtain additional imaging as patient had negative CT scan within the last 24 hours which makes acute surgical emergencies of the abdomen and pelvis less likely. ALL IMAGES (IF OBTAINED) HAVE BEEN PERSONALLY REVIEWED AND INTERPRETED BY MYSELF. CBC with leukocytosis suggestive of systemic inflammation, similar to CBC from yesterday, no anemia or thrombocytopenia noted BMP with significantly low potassium at 2.6, no other significant electrolyte ormaladies, no evidence of metabolic acidosis with normal bicarb. Slight endorganhypoperfusion likely secondary dehydration with a slightly elevated anion gap at17, no acute kidney Injury in fact improved kidney function from yesterday LFTs show no evidence of hepatobiliary pathology. Lipase is wnl indicating no pancreatic inflammation. Urinalysis shows no evidence of urinary inflammation suggestive of UTI Patient requested oral Phenergan. This was given along with oral potassium (40 mEq). Patient is able to tolerate p.o. Repeat abdominal exam is benign. Upon reassessment vital signs improved blood pressure 141/93 and heart rate improved to 68. Patient notes symptomatic improvement. He was given a second dose of 40 milliequivalents of oral potassium to hopefully correct his hypokalemia (2.6). Patient was still able to tolerate p.o. Appropriate discharge home with prescription for Phenergan and lieu of already prescribed Zofran. Did not feel the patient needed repeat BMP as he took a total of 40 mEq of oral potassium. The patient and/or family, caregivers express understanding. The patient and/orfamily, caregivers agrees with the plan. Shared decision making: I will have a discussion with the patient and or visitors regarding risk/benefits of further testing or admission. They will be made aware of of the risk/benefits inherent in this decision they will be given the opportunity to voice understanding. Total critical care time today provided was at least 0 minutes. This excludes separately billable procedures. Critical care time (if documented) is secondary to the patient having high probability of clinically significant/life threatening deterioration in the patient's condition which required my urgent intervention. Impression: 1. Abdominal pain 2. Nausea and vomiting 3. Hypokalemia Dispo: Discharge home This note was generated with ProPerforma dictation software. It may contain incorrectwords, spelling, and punctuation that were not noted in review of the chart prior to signing. Lab Data Labs: Laboratory Results - last 24 hr 04/22/25 04/22/25 08:02 08:50 WBC 14.6 H RBC 4.91 Hgb 15.5 Hct 46.0 MCV 93.7 MCH 31.6 MCHC 33.7 RDW Std Deviation 43.3 RDW Coeff of Rohith 12.5 Plt Count 273 MPV 9.9 Immature Gran % (Auto) 0.500 Neut % (Auto) 71.5 H Lymph % (Auto) 19.5 Randolph % (Auto) 7.8 Eos % (Auto) 0.3 Baso % (Auto) 0.4 Absolute Neuts (auto) 10.4 H Absolute Lymphs (auto) 2.83 Nucleated RBC % 0 Sodium 140 Potassium 2.6 L* Chloride 93 L Carbon Dioxide 30.5 Anion Gap 17 H BUN 17 Creatinine 1.30 H Estim Creat Clear Calc 106.18 Est GFR (MDRD) Non-Af 74 BUN/Creatinine Ratio 13.1 Glucose 135 H Calcium 8.9 Total Bilirubin 0.42 AST 12 ALT 10 Alkaline Phosphatase 67 Total Protein 6.7 Albumin 4.2 Globulin 2.4 Albumin/Globulin Ratio 1.7 Lipase 37 Urine Color Yellow Urine Clarity Clear Urine pH 6.5 Ur Specific [place] 1.015 Urine Protein 100 H Urine Glucose (UA) Normal Urine Ketones 150 A* Urine Occult Blood 10 H Urine Nitrite Negative Urine Bilirubin 1 H Urine Urobilinogen 4 H Ur Leukocyte Esterase 25 H Urine RBC 0 SEEN Urine WBC 5-10 SEEN Ur Squamous Epith Cells 0 SEEN Urine Bacteria 0 SEEN Urine Mucus 1+ Discharge Plan Triage Chief Complaint: Abd Pain ED Provider: Rodriguez Beavers Dx/Rx/DC Orders Instructions: ED Hypokalemia, ED Vomiting (Adult) Prescriptions: New promethazine 25 mg tablet 25 mg PO Q6H PRN (Reason: nausea and vomiting) 7 Days Qty: 30 0RF No Action trazodone 50 mg tablet [...] tablet,delayed release (DR/EC) 75 mg PO BID prochlorperazine maleate [Compazine] 10 mg tablet 10 mg PO TID PRN (Reason: nausea and vomiting) 7 Days Qty: 21 0RF oxycodone-acetaminophen [Percocet] 5-325 mg tablet 1 tab PO Q6H PRN (Reason: pain) 3 Days Qty: 12 0RF Primary Care Provider: Kamron Erickson Referrals: Kamron Erickson MD [Primary Care Provider, Family Practice] Owen Colbert DO [Med Staff - Active Staff, Gastroenterology] Activity Restrictions/Additional Instructions: Thank you for trusting us with your care today! Your labs are reassuring. Did show low potassium which was replaced with oral potassium. Please take Phenergan as needed for nausea vomiting control at home. Please return to the emergency department if your symptoms change or worsen. Please follow with your primary care physician and/or Gastroenterology (Dr. Colbert) for further outpatient evaluation and management. Print Language: Burmese Disposition Disposition: Home, Self Care Discharge Date/Time: 04/22/25 11:55 What to do if you have Problems For any increased pain, shortness of breath, bleeding, nausea or vomiting, chestpain, or any unexpected problems, contact your Primary Care Provider. Call [facility] ([phone]) or report to the closest Emergency Room. Call 911 if necessary. 04/22/25 1538 <Electronically signed by Rodriguez Beavers DO> Cosigner Signature (if applicable): CC: Dr. Kamron Erickson MD ~ Signed [facility] Work Phone: Evaluation noteNo assessment information available [facility] Work Phone: Evaluation note* Diagnosis Onset Date Resolution Status Admit Date Intentional overdose of trazodone acute November 02, 2024 12:55pm Prolonged QT interval acute Apr 2024 12:55pm [facility] Work Phone: History and physical note Author Román Sandoval [facility] Note Date/Time November 02, 2024 1:11 pm [facility] Medical Records Department [address] [place] [address] H&P Exam - Hospitalist 11/02/24 1306 MR#: [id number] Acct: [id number] Name: AIMEE DUCKWORTH Rep #:[id number] : [...] % (Auto) 54.1, Lymph % (Auto) 24.9, Randolph% (Auto) 18.0 H, Eos % (Auto) 2.1, [...] Multi Select Codes Visit Charges Visit Charges: 08759 Init Hosp L3 Hospitalists' Procedures Procedures: 87170 Advncd Care Plan 30 Min 11/02/24 1311 <Electronically signed by Román Sandoval MD> Cosigner Signature (if applicable): CC: Dr. Román Sandoval MD; Dr. Kamron Erickson MD~ Signed [facility] Work Phone: Hospital Discharge instructionsAdditional Instructions Thank you for trusting us with your care today! Your labs are reassuring. Did show low potassium which was replaced with oral potassium. Please take Phenergan as needed for nausea vomiting control at home. Please return to the emergency department if your symptoms change or worsen. Please follow with your primary care physician and/or Gastroenterology (Dr. Colbert) for further outpatient evaluation and management.[facility] Work Phone: Reason for referral (narrative)No reason for referral information availableWWestern Reserve Hospital Work Phone: Summary Purpose Family History No Family History Records FoundNo Family History Records FoundNo Family History Records Found Advance Directives Advance Directive Response Recorded Date/ Time Living Will No December 04, 2018 12 :33pm Power of French Translator No December 04, 2018 12:33pm Advance Directive Response Recorded Date/ Time Living Will No December 31, 2021 1 :58am Power of French Translator No December 31, 2021 1:58am Advance Directive Response Recorded Date/ Time Living Will No January 30, 2022 3:53pm Power of French Translator No January 30 3:53pm Advance Directive Response Recorded Date/ Time Living Will No May 29 9:05pm Power of French Translator No May 29, 2022 9:05pm Advance Directive Response Recorded Date/ Time Living Will No April 13, 2023 4:10am Power of French Translator No April 4:10am Advance Directive Response Recorded Date/ Time Living Will No November 02, 2024 11:27am Do you have a Healthcare Power of French Translator? No November 02, 2024 11:27am Living Will No August 03 024 2:14pm Do you have a Healthcare Power of French Translator? No August 03, 2024 2:14pm Advance Directive Response Recorded Date/ Time Living Will No November 02, 2024 1:54pm Do you have a Healthcare Power of French Translator? No November 02, 2024 1:54pm Living Will No August 03, 024 2:14pm Do you have a Healthcare Power of French Translator? No August 03, 2024 2:14pm Advance Directive Response Recorded Date/ Time Do you have a Healthcare Power of French Translator? No April 21, 2025 2:04am Advance Directive Response Recorded Date/ Time Do you have a Healthcare Power of French Translator? No April 21, 2025 2:04am Do you have a Healthcare Power of French Translator? No April 22, 2025 7:38am Chief Complaint and Reason for Visit Chief [...] Admit Date n/v April 21, 2025 2:03am Chief Complaint Admit Date n/v April 21, 2025 2:03am N/V April 22, 2025 7:37am Additional Source Comments (unrecognized sect ion and content) No Status Records FoundNo Status Records FoundNo Status Records Found INFORMATION SOURCE (unrecogn ized section and content) DATE CREATED AUTHOR 07/12/2018 [facility] [place] DATE CREATED AUTHOR AUTHOR'S ORGANIZ ATION 05/13/2023 [facility] DATE CREATED AUTHOR AUTHOR'S ORGANIZ ATION 04/26/2025 [facility] Goals (unrecognized section and content) Goals may [...] 03, 2024 End: August 04, 2024 Dr. oRdriguez Beavers DO Emergency Provider Active Start: August [...] 21, 2025 Dr. Diomedes York DO Emergency Departme nt Physician Active Start: April 21, 2025 End: April 21, 2025 Team Status: Inactive Member Role/Relationship Status Dates Dr. Kamron Erickson MD Primary care physician Active Start: April 21, 2025 End: April 21, 2025 Dr. Diomedes York DO Attending physician Active Start: April 21, 2025 End: April 21, 2025 Dr. Diomedes York DO Emergency Departme nt Physician Active Start: April 21, 2025 End: April 21, 2025 Team Status: Inactive Member Role/Relationship Status Dates Dr. Kamron Erickson MD Primary care physician Active Start: April 22, 2025 End: April 22, 2025 Dr. Rodriguez Beavers , DO Attending physician Active Start: April 22, 2025 End: April 22, 2025 Dr. Rodriguez Beavers DO Emergency Departm ent Physician Active Start: April 22, 2025 End: April 22, 2025 FOR RECORDS PERTAINING TO PATIENTS WHO [...] BE BASED ON THE PRIMARY CLINICAL RECORDS. [employer] [facility]. provides no warranty or guarantee of the accuracy or completeness of information in this document.
--- NOTE | 2025-05-31 03:51 | HP.PCM_ITS ---
HPI - General General Date of Admission: 05/31/25 Date of Service: 05/31/25 Chief Complaint: Intractable nausea and vomiting HPI Narrative AIMEE DUCKWORTH, is a 34 M who presents to the emergency room with chief complaint of nausea and vomiting. Onset of symptoms began approximately 3 days ago with nausea, vomiting and diarrhea. The patient was seen earlier in the emergency room and sent home only to return with worsening symptoms of nausea and vomiting this evening. Patient describes having some lower left abdominal quadrant pain and is feeling dehydrated and weak. Patient does admit to smoking marijuana routinely. CT scan was noted to have some fluid-filled loops of bowel air consistent with gastroenteritis. CBC and BMP were unremarkable. Patient denies any fevers or chills and/or shortness of breath at present time will be admitted to general medical floor for observation with IV hydration and antiemetic medication. [facility] Medical History Spinal stenosis Schizophrenia Depression Anxiety Smoker Schizophrenia Migraines Asthma Home Medications ?Medication ?Instructions ?Recorded ?Last Taken ?Type divalproex 500 mg tablet,delayed 1,000 mg PO BID 06/0211/02/24 History release albuterol sulfate 90 mcg/actuation 1 - 2 puff inhalati on Q4H PRN cough 11/02/24 Unknown History aerosol inhaler escitalopram oxalate 20 mg tablet 20 mg PO DAILY 11/0211/02/24 History lorazepam 1 mg tablet 1 mg PO BID 11/02/24 Unknown History diclofenac sodium 75 mg 75 mg PO BID 04/21/25 Unknow n History tablet,delayed release haloperidol 5 mg tablet 5 mg PO BID 04/21/25 Unknown History hydroxyzine HCl 50 mg tablet 50 mg PO TID 04/21/25 Unk nown History promethazine 25 mg tablet 25 mg PO Q6H PRN nausea and 04/22/25 Unknown Rx vomiting 7 days #30 tabs azelastine 137 mcg (0.1 %) nasal 2 spray intranasal DA YARELIS 05/31/25 Unknown History spray bupropion HCl 100 mg tablet PO 05/31/25 Unknown Histor y tizanidine 4 mg tablet 8 mg PO Q8H PRN PRN low back pain 05/31/25 Unknown History Allergy/AdvReac Type Severity Reaction Status Date / Time Sulfa (Sulfonamide Allergy Unknown Verified 05/31/25 00:41 Antibiotics) sulfisoxazole (From Allergy Hives Verified 05/31/25 00:41 Gantrisin) Social History household members: family Smoking Status: Current every day smoker tobacco type: cigarettes and e- cigarettes ROS Constitutional Constitutional: Reports weakness; Denies chills or fever(s) Eyes Eyes: Denies blurry vision ENT HEENT: Denies abnormal hearing Cardiovascular Cardiovascular: Reports chest pain Respiratory/Chest Respiratory/Chest: Denies shortness of breath at rest Gastrointestinal Gastrointestinal: Reports abdominal pain, diarrhea, hematemesis, nausea and vomiting Genitourinary Genitourinary: Denies dysuria Musculoskeletal Musculoskeletal: Denies back pain Integumentary Integumentary: Denies dry skin Neurologic Neurologic: Denies abnormal gait Psychiatric Psychiatric: Reports anxiety Vital Signs Vital Signs Vital Signs: 05/31/25 00:42 05/31/25 00:46 05/31/25 01:46 Temperature 98.6 F 98.6 F 98.8 F Temperature Source Oral Axillary Axillary Pulse Rate 115 H 115 H 135 H Respiratory Rate 19 H 19 H 18 Blood Pressure 160/96 H 160/96 H 159/96 H Blood Pressure Mean 117 117 117 Pulse Ox 99 100 100 Oxygen Delivery Method Room Air Room Air 05/31/25 02:00 05/31/25 03:32 Temperature 98.8 F 98.8 F Temperature Source Oral Pulse Rate 145 H 127 H Respiratory Rate 18 18 Blood Pressure 138/81 H 141/99 H Blood Pressure Mean 100 113 Pulse Ox 100 97 Oxygen Delivery Method Room Air Weight Weight: 251 lb 15.814 oz Body Mass Index (BMI) 34.2 Physical Exam Const oriented x3 General Appearance: cooperative and well developed HEENT normocephalic and head/scalp atraumatic Eyes PERRL Neck no lymphadenopathy Lymph Lymphatic: no lymphadenopathy noted Resp normal respiratory effort, normal air movement and clear to auscultation bilaterally Cardio regular rhythm, S1 normal heart sound and S2 normal heart sound Rate: tachycardic GI normal to inspection, nondistended, normoactive bowel sounds and soft to palpation Palpation: tender LLQ Extremity normal capillary refill Skin General Skin Exam: no breakdown Neuro no focal motor deficits and no sensory deficits noted Psych thought process normal and cooperative Mood & Affect: anxious Results Lab / Micro Data 05/31/25 01:11 05/31/25 01:11 Labs: Laboratory Results - last 24 hr 05/31/25 01:10: PT 13.2, INR 1.0, APTT 22.7 L 05/31/25 01:11: WBC 19.9 H, RBC 5.39, Hgb 17.0 H, Hct 49.4, MCV 91.7, MCH 31.5, MCHC 34.4, RDW Std Deviation 43.2, RDW Coeff of Rohith 12.8, Plt Count 360, MPV 10.4, Immature Gran % (Auto) 0.500, Neut % (Auto) 85.4 H, Lymph % (Auto) 8.3 L, [place] % (Auto) 5.6, Eos % (Auto) 0.0, Baso % (Auto) 0.2, Absolute Neuts (auto) 17.0 H, Absolute Lymphs (auto) 1.65, Nucleated RBC % 0, Sodium 142, Potassium 3.4, Chloride 101, Carbon Dioxide 18.3 L, Anion Gap 23 H, BUN 9, Creatinine 1.31 H, Estim Creat Clear Calc 103.71, Est GFR (MDRD) Non-Af 73, BUN/Creatinine Ratio 7.1 L, Glucose 187 H, Lactic Acid 4.0 H*, Calcium 9.5, Total Bilirubin 0.39, Direct Bilirubin 0.18, AST 18, ALT 12, Alkaline Phosphatase 87, Total Protein 7.4, Albumin 4.7, Globulin 2.6, Lipase 51 Imaging Radiology Impression Chest X-Ray 05/31/25 02:40 IMPRESSION: No focal consolidations. Reading Location: [facility] Assessment & Plan Assessment/Plan (1) Nausea, vomiting, and diarrhea: (2) Depression, major: PLAN: Plan 1 intractable nausea and vomiting?admit patient for observation to general medical floor suspect patient is experiencing symptoms from gastroenteritis and may be exacerbated by habitual marijuana use. Will place patient on IV normal saline at a rate of 125 cc/h along with ondansetron 4 mg IV every 4 hours as needed nausea and will add Compazine as well. As patient is more able to tolerate p.o. he will be able to be discharged tomorrow more than likely 2. Depression?continue routine home medication 3. DVT prophylaxis?SCDs 4. CODE STATUS full verified Charges/Coding Visit Charges OBSV E&M: 23825 Observ/hosp same date L2
--- OUTSIDE RECORDS SUMMARY | 2025-05-31 04:31 | XMS RPT_ITS | CCD ---
Author Organization [facility] CliniSymd Care Team Providers Care Miner Helper Name Role Phone Coco MoreiraTiffJustin Unavailable Unavailable Hailey Jarquin PRODUCT TESTER FIBERGLASS Unavailable Unavailable Abraham Aguilar MEDICAL CLAIMS REPRESENTATIVE Unavailable Unavailable VIDAL CAMARGO Attending Unava ilable KAMRON ERICKSON Primary Care Unavailable Dre GUZMÁN, Dr. Pina Primary Care Provider Dr. Rodriguez Beavers DO Attending Provider Dr. Rodriguez Beavers DO Emergency Provider [phone] uGy GUZMÁN, Dr. Redd Emergency Provider [phone] Lori GUZMÁN, Dr. [place] Admit Provider Unavailable [...] (10 sources) sulfiSOXAZOLE Drug Allergy 9 Hives [facility] (11 sources) Sulfonamides (Antibiotic); Translations: [Sulfa (Sulfonamide Antibiotics)] Allergy to substance 9 Unknown [facility] (1 source) sulfiSOXAZOLE; Translations: [GANTRISIN] Drug Allergy 3 [facility]ository (1 source) sulfiSOXAZOLE Drug Allergy 5 [facility] Repository Medications Current Medications Medication Drug Class(es) Dates Sig (Normalized) Sig (Original) acetaminophen 325 mg / oxyCODONE hydrochloride 5 mg oral tablet (2 sources) Opioid Agonist Start: 04-21-2025 take 1 tablet by mouth every six hours as needed for pain [id number] 200 actuat albuterol 0.09 mg/actuat metered dose [...] Auto (Unsp spec) [#/Vol] 2.83 10*3/uL 0.83-4.51 [facility] Absolute neutrophil countOrd ered By: Rodriguez Beavers on 04-22-2025 Neutrophils (Bld) [#/Vol] 10.4 10*3/uL High 2.0-7.7 [facility] Anion gap in Serum or Plasma Ordered By: Rodriguez Beavers on 04-22-2025 Anion gap [Moles/Vol] 17 mmol/L High 5-15 [facility] Automated lymphocyte count a s percentage of total leukocytesOrdered By: Rodriguez Beavers on 04-22-2025 Lymphocytes/100 WBC Auto (Unsp spec) 19.5 % 19-41 [facility] BUN/creatinine ratioOrdered By: Rodriguez Beavers on 04-22-2025 Urea nitrogen/Creatinine [Mass ratio] 13.1 mg/mg 10-20 [facility] Basophil percentageOrdered B y: Rodriugez Beavers on 04-22-2025 Basophils/100 WBC (Bld) 0.4 % 0-1 [facility] Bilirubin Test strip Ql (U)O rdered By: Rodriguez Beavers on 04-22-2025 Bilirubin Ql (U) 1 mg/dL High Negative [facility] Comment on above: COLOR OF URINE MAY A FFECT DIPSTICK RESULTS. Bilirubin, totalOrdered By: Rodriguez Beavers on 04-22-2025 Bilirubin [Mass/Vol] 0.42 mg/dL 0.00-1.30 [facility] CBC W/Diff, Automatedon 04-04 Absolute Lymph 2.83 X10 3/uL Normal 0.83-4.51 [facility] Comment on above: Performed By: #### L 500.4050, L501.2450, L100.0100 ####[facility] [address] [place], [address] Absolute Neut 10.4 X10 3/uL High 2.0-7.7 [facility] Comment on above: Performed By: #### L 500.4050, L501.2450, L100.0100 ####[facility] [address] [place], [address] Basophils/100 WBC (Bld) 0.4 % Normal 0-1 [facility] Comment on above: Performed By: #### L 500.4050, L501.2450, L100.0100 ####[facility] [address] [place], [address] Eosinophils/100 WBC (Bld) 0.3 % Normal 0-5 [facility] Comment on above: Performed By: #### L 500.4050, L501.2450, L100.0100 ####[facility] [address] [place], [address] Erythrocyte distribution width (RBC) [Ratio] 12.5 % Normal 11.6-14.6 [facility] Comment on above: Performed By: #### L 500.4050, L501.2450, L100.0100 ####[facility] [address] [place], [address] Hematocrit (Bld) [Volume fraction] 46.0 % Normal 40-54 [facility] Comment on above: Performed By: #### L 500.4050, L501.2450, L100.0100 ####[facility] [address] [place], [address] Hemoglobin (Bld) [Mass/Vol] 15.5 g/dL Normal 13.0-16. 5 [facility] Comment on above: Performed By: #### L 500.4050, L501.2450, L100.0100 ####[facility] [address] [place], [address] IG% 0.500 Normal 0.0-0.9 [facility] Comment on above: Result Comment: IG% - Immature Granulocytes (promyelocytes, myelocytes and metamyelocytes) > 1% indicates that a LEFT SHIFT is Present. Performed By: #### L 500.4050, L501.2450, L100.0100 ####[facility] [address] [place], [address] Lymphocytes/100 WBC (Bld) 19.5 % Normal 19-41 [facility] Comment on above: Performed By: #### L 500.4050, L501.2450, L100.0100 ####[facility] [address] [place], [address] MCH (RBC) [Entitic mass] 31.6 pg Normal 27.0-32.0 [facility] Comment on above: Performed By: #### L 500.4050, L501.2450, L100.0100 ####[facility] [address] [place], [address] MCHC (RBC) [Mass/Vol] 33.7 g/dL Normal 32-36 [facility] Comment on above: Performed By: #### L 500.4050, L501.2450, L100.0100 ####[facility] [address] [place], [address] MCV (RBC) [Entitic vol] 93.7 fL Normal 80-94 [facility] Comment on above: Performed By: #### L 500.4050, L501.2450, L100.0100 ####[facility] [address] [place], [address] Monocytes/100 WBC (Bld) 7.8 % Normal 0-10 [facility] Comment on above: Performed By: #### L 500.4050, L501.2450, L100.0100 ####[facility] [address] [place], [address] Neutrophils/100 WBC (Bld) 71.5 % High 47-70 [facility] Comment on above: Performed By: #### L 500.4050, L501.2450, L100.0100 ####[facility] [address] [place], [address] Nucleated RBC (Bld) [#/Vol] 0 10*3/uL Normal 0-5 [facility] Comment on above: Performed By: #### L 500.4050, L501.2450, L100.0100 ####[facility] [address] [place], [address] Platelet mean volume (Bld) [Entitic vol] 9.9 fL Normal 6.2-12.0 [facility] Comment on above: Performed By: #### L 500.4050, L501.2450, L100.0100 ####[facility] [address] [place], [address] Platelets (Bld) [#/Vol] 273 10*3/uL Normal 150-450 [facility] Comment on above: Performed By: #### L 500.4050, L501.2450, L100.0100 ####[facility] [address] [place], [address] RBC (Bld) [#/Vol] 4.91 10*6/uL Normal 4.6-6.2 [facility] Comment on above: Performed By: #### L 500.4050, L501.2450, L100.0100 ####[facility] [address] [place], [address] RDW SD 43.3 fl Normal 35.1-43.9 [facility] Comment on above: Performed By: #### L 500.4050, L501.2450, L100.0100 ####[facility] [address] [place], [address] WBC (Bld) [#/Vol] 14.6 10*3/uL High 4.4-11.0 [facility] Comment on above: Performed By: #### L 500.4050, L501.2450, L100.0100 ####[facility] [address] [place], [address] Carbon dioxide, total [Moles /volume] in Central venous bloodOrdered By: Rodriguez Beavers on 04-22-2025 CO2 [Moles/Vol] 30.5 mmol/L 21.0-32.0 [facility] Chloride assayOrdered By: Fer Beavers on 04-22-2025 Chloride [Moles/Vol] 93 mmol/L Low 98-108 [facility] Comprehensive Metabolic Prof ilon 04-22-2025 Albumin [Mass/Vol] 4.2 g/dL Normal 3.5-5.0 [facility] Comment on above: Performed By: #### L 500.4050, L501.2450, L100.0100 ####[facility] [address] [place], [address] Albumin/Globulin [Mass ratio] 1.7 {ratio} Normal 0.9-2.4 [facility] Comment on above: Performed By: #### L 500.4050, L501.2450, L100.0100 ####[facility] [address] [place], [address] ALK PHOS 67 U/L Normal 40-129 [facility] Comment on above: Performed By: #### L 500.4050, L501.2450, L100.0100 ####[facility] [address] [place], [address] ALT [Catalytic activity/Vol] 10 U/L Normal <=46 [facility] Comment on above: Performed By: #### L 500.4050, L501.2450, L100.0100 ####[facility] [address] [place], [address] AST [Catalytic activity/Vol] 12 U/L Normal <=37 [facility] Comment on above: Performed By: #### L 500.4050, L501.2450, L100.0100 ####[facility] [address] [place], [address] Bilirubin [Mass/Vol] 0.42 mg/dL Normal 0.00-1.30 [facility] Comment on above: Performed By: #### L 500.4050, L501.2450, L100.0100 ####[facility] [address] [place], [address] BUN/CRE 13.1 RATIO Normal 10-20 [facility] Comment on above: Performed By: #### L 500.4050, L501.2450, L100.0100 ####[facility] [address] [place], [address] Calcium [Mass/Vol] 8.9 mg/dL Normal 7.6-11.0 [facility] Comment on above: Performed By: #### L 500.4050, L501.2450, L100.0100 ####[facility] [address] [place], [address] Chloride [Moles/Vol] 93 mmol/L Low 98-108 [facility] Comment on above: Performed By: #### L 500.4050, L501.2450, L100.0100 ####[facility] [address] [place], [address] CO2 [Moles/Vol] 30.5 mmol/L Normal 21.0-32.0 [facility] Comment on above: Performed By: #### L 500.4050, L501.2450, L100.0100 ####[facility] [address] [place], [address] Creatinine [Mass/Vol] 1.30 mg/dL High 0.70-1.20 [facility] Comment on above: Performed By: #### L 500.4050, L501.2450, L100.0100 ####[facility] [address] [place], [address] ECRCL 106.18 ml/min Normal 50-250 [facility] Comment on above: Performed By: #### L 500.4050, L501.2450, L100.0100 ####[facility] [address] [place], [address] GAP 17 High 5-15 [facility] Comment on above: Performed By: #### L 500.4050, L501.2450, L100.0100 ####[facility] [address] [place], [address] GFR/1.73 sq M.predicted among non-blacks MDRD (S/P/Bld) [Vol rate/Area] 74 mL/min/{1.73_m2} Normal >60 [facility] Comment on above: Result Comment: mL/m in/1.73m2 CKD-EPI Creatinine Equation (2020) Performed By: #### L 500.4050, L501.2450, L100.0100 ####[facility] [address] [place], [address] Globulin (S) [Mass/Vol] 2.4 g/dL Normal 2.2-4.2 [facility] Comment on above: Performed By: #### L 500.4050, L501.2450, L100.0100 ####[facility] [address] [place], [address] Glucose [Mass/Vol] 135 mg/dL High 70-99 [facility] Comment on above: Performed By: #### L 500.4050, L501.2450, L100.0100 ####[facility] [address] [place], [address] Potassium [Moles/Vol] 2.6 mmol/L Invalid Interpretation Code 3.3-5.1 [facility] Comment on above: Result Comment: Crit ical Result(s) Called at: 0902 04/22/2025 by: YASMINE SOLANO??Results read back by same. Performed By: #### L 500.4050, L501.2450, L100.0100 ####[facility] [address] [place], [address] Sodium [Moles/Vol] 140 mmol/L Normal 133-145 [facility] Comment on above: Performed By: #### L 500.4050, L501.2450, L100.0100 ####[facility] [address] [place], [address] T PROT 6.7 g/dL Normal 5.9-8.4 [facility] Comment on above: Performed By: #### L 500.4050, L501.2450, L100.0100 ####[facility] [address] [place], [address] Urea nitrogen [Mass/Vol] 17 mg/dL Normal 4-19 [facility] Comment on above: Performed By: #### L 500.4050, L501.2450, L100.0100 ####[facility] [address] [place], [address] Emergency Department Summary on 04-22-2025 Emergency Department Summary [facility] Medical Records Department [address] [place] [address] Emergency Department Summary 04/22/25 MR#: [id number] Acct: [id number] Name: AIMEE DUCKWORTH Rep #: [id number] : 1990 34 From: Rodriguez Beavers DO [...] Social det (more content not included)... Normal [facility] Eosinophil percentageOrdered By: Rodriguez Beavers on 04-22-2025 Eosinophils/100 WBC (Bld) 0.3 % 0-5 [facility] Erythrocyte distribution wid th ratioOrdered By: Rodriguez Beavers on 04-22-2025 Erythrocyte distribution width (RBC) [Ratio] 12.5 % 11.6-14.6 [facility] Erythrocyte distribution wid th standard deviationOrdered By: Rodriguez Beavers on 04-22-2025 Erythrocyte distribution width (RBC) [Ratio] 43.3 fl 35.1-43.9 [facility] Glomerular filtration rate ( GFR) estimation/1.73 sq m using serum, plasma, or whole bOrdered By: Rodriguez Beavers on 04-22-2025 GFR/1.73 sq M.predicted among non-blacks MDRD (S/P/Bld) [Vol rate/Area] 74 mL/min/{1.73_m2} >60 [facility] Comment on above: mL/min/1.73m2 CKD-EP I Creatinine Equation (2020) Hematocrit Auto (Bld) [Volum e fraction]Ordered By: Rodriguez Beavers on 04-22-2025 Hematocrit (Bld) [Volume fraction] 46.0 % 40-54 [facility] Hemoglobin measurementOrdere d By: Rodriguez Beavers on 04-22-2025 Hemoglobin (Bld) [Mass/Vol] 15.5 g/dL 13.0-16. 5 [facility] Immature granulocytes/100 WB C Auto (Bld)Ordered By: Rodriguez Beavers on 04-22-2025 Immature granulocytes/100 WBC (Bld) 0.500 % 0.0-0.9 [facility] Comment on above: IG% - Immature Granu locytes (promyelocytes, myelocytes and metamyelocytes) > 1% indicates that a LEFT SHIFT is Present. Ketones Test strip Ql (U)Ord ered By: Rodriguez Beavers on 04-22-2025 Ketones Ql (U) 150 mg/dl Negative [facility] Comment on above: CRITICAL VALUE *H Laboratory - Chemistry and C hemistry - challengeOrdered By: Rodriguez Beavers on 04-22-2025 AST [Catalytic activity/Vol] 12 U/L <38 [facility] Lipaseon 04-22-2025 Lipase [Catalytic activity/Vol] 37 U/L Normal 13-75 [facility] Comment on above: Result Comment: Heavenly wolff note: LIPASE revised reference range effective 22. New Lipase methodology. Expected to produce lower values than the previous assay method. NEW Reference Range: 13 - 75 U/L Performed By: #### L 500.4050, L501.2450, L100.0100 ####[facility] [address] [place], [address] Lipase measurementOrdered By : Rodriguez Beavers on 04-22-2025 Lipase [Catalytic activity/Vol] 37 U/L 13-75 [facility] Comment on above: Please note:LIPASE r evised reference range effective 22. New Lipase methodology. Expected to produce lower values than the previous assay method. NEW Reference Range: 13 - 75 U/L MCV (mean corpuscular volume ) determinationOrdered By: Rodriguez Beavers on 04-22-2025 MCV (RBC) [Entitic vol] 93.7 fL 80-94 [facility] Mean corpuscular hemoglobin (MCH) determinationOrdered By: Rodriguez Beavers on 04-22-2025 MCH (RBC) [Entitic mass] 31.6 pg 27.0-32.0 [facility] Mean corpuscular hemoglobin concentration (MCHC) determinationOrdered By: Rodriguez Beavers on 04-22-2025 MCHC (RBC) [Mass/Vol] 33.7 g/dL 32-36 [facility] Mean platelet volume determi nationOrdered By: Rodriguez Beavers on 04-22-2025 Platelet mean volume (Bld) [Entitic vol] 9.9 fL 6.2-12.0 [facility] Microscopic analysis of urin e for red blood cells (RBC)Ordered By: Rodriguez Beavers on 04-22-2025 Microscopic analysis of urine for red blood cells (RBC) 0 SEEN /hpf 0-5 [facility] Monocyte percentageOrdered B y: Rodriguez Beavers on 04-22-2025 Monocytes/100 WBC (Bld) 7.8 % 0-10 [facility] Mucus LM Ql (Urine sed)Order ed By: Rodriguez Beavers on 04-22-2025 Mucus Ql (Urine sed) 1+ /hpf [facility] Neutrophil percentageOrdered By: Rodriguez Beavers on 04-22-2025 Neutrophils/100 WBC (Bld) 71.5 % High 47-70 [facility] Nitrite Test strip Ql (U)Ord ered By: Rodriguez Beavers on 04-22-2025 Nitrite Ql (U) Negative Negative [facility] Nucleated red blood cell per centageOrdered By: Rodriguez Beavers on 04-22-2025 Nucleated RBC/100 WBC (Bld) [Ratio] 0 % 0-5 [facility] Platelet countOrdered By: Fer Beavers on 04-22-2025 Platelets (Bld) [#/Vol] 273 10*3/uL 150-450 [facility] Potassium measurement (mass/ volume)Ordered By: Rodriguez Beavers on 04-22-2025 Potassium (Unsp spec) [Mass/Vol] 2.6 mmol/L Critically low 3.3-5.1 [facility] Comment on above: Critical Result(s) C alled at: 0902 04/22/2025 by: YASMINE SOLANO Results read back by same. Protein Test strip Ql (U)Ord ered By: Rodriguez Beavers on 04-22-2025 Protein Ql (U) 100 mg/dl High Negative [facility] RBC Auto (Bld) [#/Vol]Ordere d By: Rodriguez Beavers on 04-22-2025 RBC (Bld) [#/Vol] 4.91 10*6/uL 4.6-6.2 [facility] Serum creatinine measurement (mass/volume)Ordered By: Rodriguez Beavers on 04-22-2025 Creatinine [Mass/Vol] 1.30 mg/dL High 0.70-1.20 [facility] Serum globulin measurementOr dered By: Rodriguez Beavers on 04-22-2025 Globulin (S) [Mass/Vol] 2.4 g/dL 2.2-4.2 [facility] Serum glucose measurement (m ass/volume)Ordered By: Rodriguez Beavers on 04-22-2025 Glucose [Mass/Vol] 135 mg/dL High 70-99 [facility] Serum or plasma alanine comer otransferase (ALT) measurementOrdered By: Rodriguez Beavers on 04-22-2025 ALT [Catalytic activity/Vol] 10 U/L <47 [facility] Serum or plasma albumin mauro urement (mass/volume)Ordered By: Rodriguez Beavers on 04-22-2025 Albumin [Mass/Vol] 4.2 g/dL 3.5-5.0 [facility] Serum or plasma albumin/glob ulin mass ratioOrdered By: Rodriguez Beavers on 04-22-2025 Albumin/Globulin [Mass ratio] 1.7 {ratio} 0.9-2.4 [facility] Serum or plasma alkaline fatuma sphatase measurementOrdered By: Rodriguez Beavers on 04-22-2025 ALP [Catalytic activity/Vol] 67 U/L 40-129 [facility] Serum or plasma calcium mauro urement (mass/volume)Ordered By: Rodriguez Beavers on 04-22-2025 Calcium [Mass/Vol] 8.9 mg/dL 7.6-11.0 [facility] Serum or plasma urea nitroge n measurement (mass/volume)Ordered By: Rodriguez Beavers on 04-22-2025 Urea nitrogen [Mass/Vol] 17 mg/dL 4-19 [facility] Sodium levelOrdered By: Melony Bevaers on 04-22-2025 Sodium [Moles/Vol] 140 mmol/L 133-145 [facility] Squamous epithelial cells de tection in urine sediment by light microscopyOrdered By: Rodriguez Beavers on 04-22-2025 Epithelial cells.squamous LM Ql (Urine sed) 0 SEEN /hpf 0-5 [facility] Total proteinOrdered By: The lara Beavers on 04-22-2025 Protein [Mass/Vol] 6.7 g/dL 5.9-8.4 [facility] Urinalysis, Completeon 04-22 Mucus Ql (Urine sed) 1+ /hpf Normal [facility] Comment on above: Order Comment: CRITI RICARDA VALUE CALLED TO YASMINE MYERS04/22/2520 Mary Carmen Jay.RESULTS READ BACK BY SAME.ASSOCIATE AUTOMATION ENGINEER TO SPECIFY Performed By: #### L 400.0001 ####[facility] [address] [place], [address] WBC 5-10 SEEN Normal 0-5 [facility] Comment on above: Order Comment: CRITI RICARDA VALUE CALLED TO YASMINE [facility]04/22/2520 Mary Carmen Jay.RESULTS READ BACK BY SAME.ASSOCIATE AUTOMATION ENGINEER TO SPECIFY Performed By: #### L 400.0001 ####[facility] [address] [place], [address] BACTERIA 0 SEEN Normal None Seen [facility] Comment on above: Order Comment: CRITI RICARDA VALUE CALLED TO YASMINE [facility]04/22/2520 Mary Carmen Jay.RESULTS READ BACK BY SAME.ASSOCIATE AUTOMATION ENGINEER TO SPECIFY Performed By: #### L 400.0001 ####[facility] [address] [place], [address] EPI,SQUAMOUS 0 SEEN Normal 0-5 [facility] Comment on above: Order Comment: CRITI RICARDA VALUE CALLED TO YASMINE [facility]04/22/2520 Mary Carmen Jay.RESULTS READ BACK BY SAME.ASSOCIATE AUTOMATION ENGINEER TO SPECIFY Performed By: #### L 400.0001 ####[facility] [address] [place], [address] RBC 0 SEEN Normal 0-5 [facility] Comment on above: Order Comment: CRITI RICARDA VALUE CALLED TO YASMINE MYERS04/22/25 0920 Mary Carmen Jay.RESULTS READ BACK BY SAME.ASSOCIATE AUTOMATION ENGINEER TO SPECIFY Performed By: #### L 400.0001 ####[facility] [address] [place], [address] Urine clarityOrdered By: Isac Beavers on 04-22-2025 Clarity (U) Clear Clear [facility] Urine color determinationOrd ered By: Rodriguez Beavers on 04-22-2025 Color (U) Yellow Yellow [facility] Urine glucose detectionOrder ed By: Rodriguez Beavers on 04-22-2025 Glucose Ql (U) Normal mg/dl Normal [facility] Urine leukocyte esterase det ection by dipstickOrdered By: Rodriguez Beavers on 04-22-2025 Leukocyte esterase Test strip Ql (U) 25 /ul High Negative [facility] Urine pHOrdered By: Rodriguez walker on 04-22-2025 pH (U) 6.5 [pH] 5.0 - 8.0 [facility] Urine sediment bacteria coun t by microscopy (number/high power field)Ordered By: Rodriguez Beavers on 04-22-2025 Bacteria LM.HPF (Urine sed) [#/Area] 0 /[HPF] None Seen [facility] Urine specific gravity measu rementOrdered By: Rodriguez Beavers on 04-22-2025 Specific gravity (U) [Rel density] 1.015 1.002-1.03 0 [facility] Urine urobilinogen measureme ntOrdered By: Rodriguez Beavers on 04-22-2025 Urobilinogen Ql (U) 4 mg/dl High Normal [facility] White blood cell (WBC) count Ordered By: Rodriguez Beavers on 04-22-2025 WBC (Bld) [#/Vol] 14.6 10*3/uL High 4.4-11.0 [facility] White blood cell countOrdere d By: Rodriguez Beavers on 04-22-2025 White blood cell count 5-10 SEEN /hpf 0-5 [facility] Abdomen/Pelvis W IV Cont ONL Yon 04-21-2025 Abdomen/Pelvis W IV Cont ONLY [facility] Imaging Services [address] [place], [place] [id number] Abdomen/Pelvis W IV Cont ONLY MR#: [id number] Acct: [id number] Name: AIMEE DUCKWORTH Rep #: [id number] : 1990 M 34 From: Murphy henderson MD PCP: Dr. Kamron Erickson MD Status: REG ER Study: Abdomen/Pelvis W IV Cont ONLY Date of Exam: Exam# [id number] Ordering Dr: Diomedes York DO PROCEDURE: ABDOMEN/PELVIS [...] Mild diffuse spondylosis. Reading Location: [place] [address] CC: Dr. Kamron Erickson MD; Diomedes York DO Sericulturist: Signed Normal [facility] Absolute lymphocyte countOrd ered By: Diomedes York on 04-21-2025 Lymphocytes Auto (Unsp spec) [#/Vol] 1.75 10*3/uL 0.83-4.51 [facility] Absolute neutrophil countOrd ered By: Diomedes York on 04-21-2025 Neutrophils (Bld) [#/Vol] 11.4 10*3/uL High 2.0-7.7 [facility] Anion gap in Serum or Plasma Ordered By: Diomedes York on 04-21-2025 Anion gap [Moles/Vol] 17 mmol/L High 5-15 [facility] Automated lymphocyte count a s percentage of total leukocytesOrdered By: Diomedes York on 04-21-2025 Lymphocytes/100 WBC Auto (Unsp spec) 12.5 % Low 19-41 [facility] BUN/creatinine ratioOrdered By: Diomedes York on 04-21-2025 Urea nitrogen/Creatinine [Mass ratio] 7.2 mg/mg Low 10-20 [facility] Basic Metabolic Profile (BMP )on 04-21-2025 BUN/CRE 7.2 RATIO Low 10-20 [facility] Comment on above: Performed By: #### L 500.2500, L500.3400, L100.0100, L501.2450 ####[facility] [address] [place], [address] Calcium [Mass/Vol] 9.4 mg/dL Normal 7.6-11.0 [facility] Comment on above: Performed By: #### L 500.2500, L500.3400, L100.0100, L501.2450 ####[facility] [address] [place], [address] Chloride [Moles/Vol] 104 mmol/L Normal 98-108 [facility] Comment on above: Performed By: #### L 500.2500, L500.3400, L100.0100, L501.2450 ####[facility] [address] [place], [address] CO2 [Moles/Vol] 23.4 mmol/L Normal 21.0-32.0 [facility] Comment on above: Performed By: #### L 500.2500, L500.3400, L100.0100, L501.2450 ####[facility] [address] [place], [address] Creatinine [Mass/Vol] 1.44 mg/dL High 0.70-1.20 [facility] Comment on above: Performed By: #### L 500.2500, L500.3400, L100.0100, L501.2450 ####[facility] [address] [place], [address] ECRCL 96.43 ml/min Normal 50-250 [facility] Comment on above: Performed By: #### L 500.2500, L500.3400, L100.0100, L501.2450 ####[facility] [address] [place], [address] GAP 17 High 5-15 [facility] Comment on above: Performed By: #### L 500.2500, L500.3400, L100.0100, L501.2450 ####[facility] [address] [place], [address] GFR/1.73 sq M.predicted among non-blacks MDRD (S/P/Bld) [Vol rate/Area] 65 mL/min/{1.73_m2} Normal >60 [facility] Comment on above: Result Comment: mL/m in/1.73m2 CKD-EPI Creatinine Equation (2020) Performed By: #### L 500.2500, L500.3400, L100.0100, L501.2450 ####[facility] [address] [place], [address] Glucose [Mass/Vol] 125 mg/dL High 70-99 [facility] Comment on above: Performed By: #### L 500.2500, L500.3400, L100.0100, L501.2450 ####[facility] [address] [place], [address] Potassium [Moles/Vol] 3.9 mmol/L Normal 3.3-5.1 [facility] Comment on above: Performed By: #### L 500.2500, L500.3400, L100.0100, L501.2450 ####[facility] [address] [place], [address] Sodium [Moles/Vol] 144 mmol/L Normal 133-145 [facility] Comment on above: Performed By: #### L 500.2500, L500.3400, L100.0100, L501.2450 ####[facility] [address] [place], [address] Urea nitrogen [Mass/Vol] 10 mg/dL Normal 4-19 [facility] Comment on above: Performed By: #### L 500.2500, L500.3400, L100.0100, L501.2450 ####[facility] [address] [place], [address] Basophil percentageOrdered B y: Diomedes York on 04-21-2025 Basophils/100 WBC (Bld) 0.4 % 0-1 [facility] Bilirubin directOrdered By: Diomedes York on 04-21-2025 Bilirubin.direct [Mass/Vol] 0.18 mg/dL 0.00-0.3 0 [facility] Bilirubin, totalOrdered By: Diomedes York on 04-21-2025 Bilirubin [Mass/Vol] 0.42 mg/dL 0.00-1.30 [facility] CBC W/Diff, Automatedon 04-04 Absolute Lymph 1.75 X10 3/uL Normal 0.83-4.51 [facility] Comment on above: Performed By: #### L 500.2500, L500.3400, L100.0100, L501.2450 ####[facility] [address] [place], [address] Absolute Neut 11.4 X10 3/uL High 2.0-7.7 [facility] Comment on above: Performed By: #### L 500.2500, L500.3400, L100.0100, L501.2450 ####[facility] [address] [place], [address] Basophils/100 WBC (Bld) 0.4 % Normal 0-1 [facility] Comment on above: Performed By: #### L 500.2500, L500.3400, L100.0100, L501.2450 ####[facility] [address] [place], [address] Eosinophils/100 WBC (Bld) 0.2 % Normal 0-5 [facility] Comment on above: Performed By: #### L 500.2500, L500.3400, L100.0100, L501.2450 ####[facility] [address] [place], [address] Erythrocyte distribution width (RBC) [Ratio] 12.3 % Normal 11.6-14.6 [facility] Comment on above: Performed By: #### L 500.2500, L500.3400, L100.0100, L501.2450 ####[facility] [address] [place], [address] Hematocrit (Bld) [Volume fraction] 48.7 % Normal 40-54 [facility] Comment on above: Performed By: #### L 500.2500, L500.3400, L100.0100, L501.2450 ####[facility] [address] [place], [address] Hemoglobin (Bld) [Mass/Vol] 16.4 g/dL Normal 13.0-16. 5 [facility] Comment on above: Performed By: #### L 500.2500, L500.3400, L100.0100, L501.2450 ####[facility] [address] [place], [address] IG% 0.400 Normal 0.0-0.9 [facility] Comment on above: Result Comment: IG% - Immature Granulocytes (promyelocytes, myelocytes and metamyelocytes) > 1% indicates that a LEFT SHIFT is Present. Performed By: #### L 500.2500, L500.3400, L100.0100, L501.2450 ####[facility] [address] [place], [address] Lymphocytes/100 WBC (Bld) 12.5 % Low 19-41 [facility] Comment on above: Performed By: #### L 500.2500, L500.3400, L100.0100, L501.2450 ####[facility] [address] [place], [address] MCH (RBC) [Entitic mass] 31.5 pg Normal 27.0-32.0 [facility] Comment on above: Performed By: #### L 500.2500, L500.3400, L100.0100, L501.2450 ####[facility] [address] [place], [address] MCHC (RBC) [Mass/Vol] 33.7 g/dL Normal 32-36 [facility] Comment on above: Performed By: #### L 500.2500, L500.3400, L100.0100, L501.2450 ####[facility] [address] [place], [address] MCV (RBC) [Entitic vol] 93.7 fL Normal 80-94 [facility] Comment on above: Performed By: #### L 500.2500, L500.3400, L100.0100, L501.2450 ####[facility] [address] [place], [address] Monocytes/100 WBC (Bld) 5.4 % Normal 0-10 [facility] Comment on above: Performed By: #### L 500.2500, L500.3400, L100.0100, L501.2450 ####[facility] [address] [place], [address] Neutrophils/100 WBC (Bld) 81.1 % High 47-70 [facility] Comment on above: Performed By: #### L 500.2500, L500.3400, L100.0100, L501.2450 ####[facility] [address] [place], [address] Nucleated RBC (Bld) [#/Vol] 0 10*3/uL Normal 0-5 [facility] Comment on above: Performed By: #### L 500.2500, L500.3400, L100.0100, L501.2450 ####[facility] [address] [place], [address] Platelet mean volume (Bld) [Entitic vol] 9.9 fL Normal 6.2-12.0 [facility] Comment on above: Performed By: #### L 500.2500, L500.3400, L100.0100, L501.2450 ####[facility] [address] [place], [address] Platelets (Bld) [#/Vol] 372 10*3/uL Normal 150-450 [facility] Comment on above: Performed By: #### L 500.2500, L500.3400, L100.0100, L501.2450 ####[facility] [address] [place], [address] RBC (Bld) [#/Vol] 5.20 10*6/uL Normal 4.6-6.2 [facility] Comment on above: Performed By: #### L 500.2500, L500.3400, L100.0100, L501.2450 ####[facility] [address] [place], [address] RDW SD 42.9 fl Normal 35.1-43.9 [facility] Comment on above: Performed By: #### L 500.2500, L500.3400, L100.0100, L501.2450 ####[facility] [address] [place], [address] WBC (Bld) [#/Vol] 14.0 10*3/uL High 4.4-11.0 [facility] Comment on above: Performed By: #### L 500.2500, L500.3400, L100.0100, L501.2450 ####[facility] [address] [place], [address] Carbon dioxide, total [Moles /volume] in Central venous bloodOrdered By: Diomedes York on 04-21-2025 CO2 [Moles/Vol] 23.4 mmol/L 21.0-32.0 [facility] Chloride assayOrdered By: Violet York on 04-21-2025 Chloride [Moles/Vol] 104 mmol/L 98-108 [facility] Emergency Department Summary on 04-21-2025 Emergency Department Summary [facility] Medical Records Department [address] [place] [address] Emergency Department Summary 04/21/25 MR#: [id number] Acct: [id number] Name: AIMEE DUCKWORTH Rep #: [id number] : 1990 34 From: Diomedes York DO [...] secondary to this he presents for evaluation. [facility] Medical History Spinal stenosis Schizophrenia Depression Anxiety Smoker Schizophrenia Migraines Asthma Home Medications ???Medication ???Instructions ???Recorded ???Last Taken ???Type divalproex 500 mg tablet,delayed 1,000 mg PO BID 06/02/24 11/02/24 History release albuterol sulfate 90 mcg/actuation 1 - 2 puff inhalation Q4H PRN [facility] 11/02/24 Unknown History aerosol inhaler bupropion [...] soft Extr (more content not included)... Normal [facility] Eosinophil percentageOrdered By: Diomedes York on 04-21-2025 Eosinophils/100 WBC (Bld) 0.2 % 0-5 [facility] Erythrocyte distribution wid th ratioOrdered By: Diomedes York on 04-21-2025 Erythrocyte distribution width (RBC) [Ratio] 12.3 % 11.6-14.6 [facility] Erythrocyte distribution wid th standard deviationOrdered By: Diomedes York on 04-21-2025 Erythrocyte distribution width (RBC) [Ratio] 42.9 fl 35.1-43.9 [facility] Glomerular filtration rate ( GFR) estimation/1.73 sq m using serum, plasma, or whole bOrdered By: Diomedes York on 04-21-2025 GFR/1.73 sq M.predicted among non-blacks MDRD (S/P/Bld) [Vol rate/Area] 65 mL/min/{1.73_m2} >60 [facility] Comment on above: mL/min/1.73m2 CKD-EP I Creatinine Equation (2020) Hematocrit Auto (Bld) [Volum e fraction]Ordered By: Diomedes York on 04-21-2025 Hematocrit (Bld) [Volume fraction] 48.7 % 40-54 [facility] Hemoglobin measurementOrdere d By: Diomedes York on 04-21-2025 Hemoglobin (Bld) [Mass/Vol] 16.4 g/dL 13.0-16. 5 [facility] Immature granulocytes/100 WB C Auto (Bld)Ordered By: Diomedes York on 04-21-2025 Immature granulocytes/100 WBC (Bld) 0.400 % 0.0-0.9 [facility] Comment on above: IG% - Immature Granu locytes (promyelocytes, myelocytes and metamyelocytes) > 1% indicates that a LEFT SHIFT is Present. Laboratory - Chemistry and C hemistry - challengeOrdered By: Diomedes York on 04-21-2025 AST [Catalytic activity/Vol] 14 U/L <38 [facility] Lipaseon 04-21-2025 Lipase [Catalytic activity/Vol] 27 U/L Normal 13-75 [facility] Comment on above: Result Comment: Heavenly wolff note: LIPASE revised reference range effective 22. New Lipase methodology. Expected to produce lower values than the previous assay method. NEW Reference Range: 13 - 75 U/L Performed By: #### L 500.2500, L500.3400, L100.0100, L501.2450 ####[facility] [address] [place], [address] Lipase measurementOrdered By : Diomedes York on 04-21-2025 Lipase [Catalytic activity/Vol] 27 U/L 13-75 [facility] Comment on above: Please note:LIPASE r evised reference range effective 22. New Lipase methodology. Expected to produce lower values than the previous assay method. NEW Reference Range: 13 - 75 U/L Liver Profileon 04-21-2025 Albumin [Mass/Vol] 4.5 g/dL Normal 3.5-5.0 [facility] Comment on above: Performed By: #### L 500.2500, L500.3400, L100.0100, L501.2450 ####[facility] [address] [place], [address] ALK PHOS 77 U/L Normal 40-129 [facility] Comment on above: Performed By: #### L 500.2500, L500.3400, L100.0100, L501.2450 ####[facility] [address] [place], [address] ALT [Catalytic activity/Vol] 12 U/L Normal <=46 [facility] Comment on above: Performed By: #### L 500.2500, L500.3400, L100.0100, L501.2450 ####[facility] [address] [place], [address] AST [Catalytic activity/Vol] 14 U/L Normal <=37 [facility] Comment on above: Performed By: #### L 500.2500, L500.3400, L100.0100, L501.2450 ####[facility] [address] [place], [address] Bilirubin [Mass/Vol] 0.42 mg/dL Normal 0.00-1.30 [facility] Comment on above: Performed By: #### L 500.2500, L500.3400, L100.0100, L501.2450 ####[facility] [address] [place], [address] Bilirubin.direct [Mass/Vol] 0.18 mg/dL Normal 0.00-0.3 0 [facility] Comment on above: Performed By: #### L 500.2500, L500.3400, L100.0100, L501.2450 ####[facility] [address] [place], [address] Globulin (S) [Mass/Vol] 2.7 g/dL Normal 2.2-4.2 [facility] Comment on above: Performed By: #### L 500.2500, L500.3400, L100.0100, L501.2450 ####[facility] [address] [place], [address] T PROT 7.2 g/dL Normal 5.9-8.4 [facility] Comment on above: Performed By: #### L 500.2500, L500.3400, L100.0100, L501.2450 ####[facility] [address] [place], [address] MCV (mean corpuscular volume ) determinationOrdered By: Diomedes York on 04-21-2025 MCV (RBC) [Entitic vol] 93.7 fL 80-94 [facility] Mean corpuscular hemoglobin (MCH) determinationOrdered By: Diomedes York on 04-21-2025 MCH (RBC) [Entitic mass] 31.5 pg 27.0-32.0 [facility] Mean corpuscular hemoglobin concentration (MCHC) determinationOrdered By: Diomedes York on 04-21-2025 MCHC (RBC) [Mass/Vol] 33.7 g/dL 32-36 [facility] Mean platelet volume determi nationOrdered By: Diomedes York on 04-21-2025 Platelet mean volume (Bld) [Entitic vol] 9.9 fL 6.2-12.0 [facility] Monocyte percentageOrdered B y: Diomedes York on 04-21-2025 Monocytes/100 WBC (Bld) 5.4 % 0-10 [facility] Neutrophil percentageOrdered By: Diomedes York on 04-21-2025 Neutrophils/100 WBC (Bld) 81.1 % High 47-70 [facility] Nucleated red blood cell per centageOrdered By: Diomedes York on 04-21-2025 Nucleated RBC/100 WBC (Bld) [Ratio] 0 % 0-5 [facility] Platelet countOrdered By: Violet York on 04-21-2025 Platelets (Bld) [#/Vol] 372 10*3/uL 150-450 [facility] Potassium measurement (mass/ volume)Ordered By: Diomedes York on 04-21-2025 Potassium (Unsp spec) [Mass/Vol] 3.9 mmol/L 3.3-5.1 [facility] RBC Auto (Bld) [#/Vol]Ordere d By: Diomedes York on 04-21-2025 RBC (Bld) [#/Vol] 5.20 10*6/uL 4.6-6.2 [facility] Serum creatinine measurement (mass/volume)Ordered By: Diomedes York on 04-21-2025 Creatinine [Mass/Vol] 1.44 mg/dL High 0.70-1.20 [facility] Serum globulin measurementOr dered By: Diomedes York on 04-21-2025 Globulin (S) [Mass/Vol] 2.7 g/dL 2.2-4.2 [facility] Serum glucose measurement (m ass/volume)Ordered By: Diomedes York on 04-21-2025 Glucose [Mass/Vol] 125 mg/dL High 70-99 [facility] Serum or plasma alanine comer otransferase (ALT) measurementOrdered By: Diomedes York on 04-21-2025 ALT [Catalytic activity/Vol] 12 U/L <47 [facility] Serum or plasma albumin mauro urement (mass/volume)Ordered By: Diomedes York on 04-21-2025 Albumin [Mass/Vol] 4.5 g/dL 3.5-5.0 [facility] Serum or plasma alkaline fatuma sphatase measurementOrdered By: Diomedes York on 04-21-2025 ALP [Catalytic activity/Vol] 77 U/L 40-129 [facility] Serum or plasma calcium mauro urement (mass/volume)Ordered By: Diomedes York on 04-21-2025 Calcium [Mass/Vol] 9.4 mg/dL 7.6-11.0 [facility] Serum or plasma urea nitroge n measurement (mass/volume)Ordered By: Diomedes York on 04-21-2025 Urea nitrogen [Mass/Vol] 10 mg/dL 4-19 [facility] Sodium levelOrdered By: Gordo York on 04-21-2025 Sodium [Moles/Vol] 144 mmol/L 133-145 [facility] Total proteinOrdered By: Luis York on 04-21-2025 Protein [Mass/Vol] 7.2 g/dL 5.9-8.4 [facility] White blood cell (WBC) count Ordered By: Diomedes York on 04-21-2025 WBC (Bld) [#/Vol] 14.0 10*3/uL High 4.4-11.0 [facility] 12 Lead EKGon 11-03-2024 12 Lead EKG [facility] Cardiovascular Services [address] [place] [address] 12 Lead EKG 11/03/24 0504 MR#: [id number] Acct: [id number] Name: AIMEE DUCKWORTH Rep #: [id number] : 1990 34 From: Manuel Kim MD [...] rhythm Normal ECG Confirmed by Manuel Kim ([id number]), news video editor JANELL RIVERA ([id number]) on 11/03/2024 7:58:31 AM Referred By: LORI Confirmed By: Manuel Kim 11/03/24 0758 Date Manuel Kim MD CC: Dr. Román Sandoval MD; Dr. Kamron Erickson MD Signed Normal [facility] Absolute neutrophil countOrd ered By: Román Sandoval on 11-03-2024 Neutrophils (Bld) [#/Vol] 3.8 10*3/uL 2.0-7.7 [facility] Anion gap in Serum or Plasma Ordered By: Román Sandoval on 11-03-2024 Anion gap [Moles/Vol] 8 mmol/L 5-15 [facility] BUN/creatinine ratioOrdered By: Román Sandoval on 11-03-2024 Urea nitrogen/Creatinine [Mass ratio] 6.6 mg/mg Low 10-20 [facility] Basophil percentageOrdered B y: Román Sandoval on 11-03-2024 Basophils/100 WBC (Bld) 0.3 % 0-1 [facility] Bilirubin, totalOrdered By: Román Sandoval on 11-03-2024 Bilirubin [Mass/Vol] 0.16 mg/dL 0.00-1.30 [facility] CBC W/Diff, Automatedon Absolute Lymph 1.14 X10 3/uL Normal 0.83-4.51 [facility] Comment on above: Performed By: #### L 501.5200, L100.0100, L500.4050, L501.2300 ####[facility] [address] [place], [place], [id number] Absolute Neut 3.8 X10 3/uL Normal 2.0-7.7 [facility] Comment on above: Performed By: #### L 501.5200, L100.0100, L500.4050, L501.2300 ####[facility] [address] [place], [address] Basophils/100 WBC (Bld) 0.3 % Normal 0-1 [facility] Comment on above: Performed By: #### L 501.5200, L100.0100, L500.4050, L501.2300 ####[facility] [address] [place], [address] Eosinophils/100 WBC (Bld) 0.5 % Normal 0-5 [facility] Comment on above: Performed By: #### L 501.5200, L100.0100, L500.4050, L501.2300 ####[facility] [address] [place], [address] Erythrocyte distribution width (RBC) [Ratio] 13.8 % Normal 11.6-14.6 [facility] Comment on above: Performed By: #### L 501.5200, L100.0100, L500.4050, L501.2300 ####[facility] [address] [place], [address] Hematocrit (Bld) [Volume fraction] 38.0 % Low 40-54 [facility] Comment on above: Performed By: #### L 501.5200, L100.0100, L500.4050, L501.2300 ####[facility] [address] [place], [address] Hemoglobin (Bld) [Mass/Vol] 12.6 g/dL Low 13.0-16. 5 [facility] Comment on above: Performed By: #### L 501.5200, L100.0100, L500.4050, L501.2300 ####[facility] [address] [place], [address] IG% 0.500 Normal 0.0-0.9 [facility] Comment on above: Result Comment: IG% - Immature Granulocytes (promyelocytes, myelocytes and metamyelocytes) > 1% indicates that a LEFT SHIFT is Present. Performed By: #### L 501.5200, L100.0100, L500.4050, L501.2300 ####[facility] [address] [place], [address] Lymphocytes/100 WBC (Bld) 19.2 % Normal 19-41 [facility] Comment on above: Performed By: #### L 501.5200, L100.0100, L500.4050, L501.2300 ####[facility] [address] [place], [address] MCH (RBC) [Entitic mass] 31.2 pg Normal 27.0-32.0 [facility] Comment on above: Performed By: #### L 501.5200, L100.0100, L500.4050, L501.2300 ####[facility] [address] [place], [address] MCHC (RBC) [Mass/Vol] 33.2 g/dL Normal 32-36 [facility] Comment on above: Performed By: #### L 501.5200, L100.0100, L500.4050, L501.2300 ####[facility] [address] [place], [address] MCV (RBC) [Entitic vol] 94.1 fL High 80-94 [facility] Comment on above: Performed By: #### L 501.5200, L100.0100, L500.4050, L501.2300 ####[facility] [address] [place], [address] Monocytes/100 WBC (Bld) 16.0 % High 0-10 [facility] Comment on above: Performed By: #### L 501.5200, L100.0100, L500.4050, L501.2300 ####[facility] [address] [place], [address] Neutrophils/100 WBC (Bld) 63.5 % Normal 47-70 [facility] Comment on above: Performed By: #### L 501.5200, L100.0100, L500.4050, L501.2300 ####[facility] [address] [place], [address] Nucleated RBC (Bld) [#/Vol] 0 10*3/uL Normal 0-5 [facility] Comment on above: Performed By: #### L 501.5200, L100.0100, L500.4050, L501.2300 ####[facility] [address] [place], [address] Platelet mean volume (Bld) [Entitic vol] 9.6 fL Normal 6.2-12.0 [facility] Comment on above: Performed By: #### L 501.5200, L100.0100, L500.4050, L501.2300 ####[facility] [address] [place], [address] Platelets (Bld) [#/Vol] 172 10*3/uL Normal 150-450 [facility] Comment on above: Performed By: #### L 501.5200, L100.0100, L500.4050, L501.2300 ####[facility] [address] [place], [address] RBC (Bld) [#/Vol] 4.04 10*6/uL Low 4.6-6.2 [facility] Comment on above: Performed By: #### L 501.5200, L100.0100, L500.4050, L501.2300 ####[facility] [address] [place], [address] RDW SD 48.2 fl High 35.1-43.9 [facility] Comment on above: Performed By: #### L 501.5200, L100.0100, L500.4050, L501.2300 ####[facility] [address] [place], [address] WBC (Bld) [#/Vol] 5.9 10*3/uL Normal 4.4-11.0 [facility] Comment on above: Performed By: #### L 501.5200, L100.0100, L500.4050, L501.2300 ####[facility] [address] [place], [address] Carbon dioxide, total [Moles /volume] in Central venous bloodOrdered By: Román Sandoval on 11-03-2024 CO2 [Moles/Vol] 24.6 mmol/L 21.0-32.0 [facility] Chloride assayOrdered By: Huy Sandoval on 11-03-2024 Chloride [Moles/Vol] 104 mmol/L 98-108 [facility] Comprehensive Metabolic Prof ilon 11-03-2024 Albumin [Mass/Vol] 3.6 g/dL Normal 3.5-5.0 [facility] Comment on above: Performed By: #### L 501.5200, L100.0100, L500.4050, L501.2300 ####[facility] [address] [place], [address] Albumin/Globulin [Mass ratio] 1.9 {ratio} Normal 0.9-2.4 [facility] Comment on above: Performed By: #### L 501.5200, L100.0100, L500.4050, L501.2300 ####[facility] [address] [place], [address] ALK PHOS 66 U/L Normal 40-129 [facility] Comment on above: Performed By: #### L 501.5200, L100.0100, L500.4050, L501.2300 ####[facility] [address] [place], [address] ALT [Catalytic activity/Vol] 19 U/L Normal <=46 [facility] Comment on above: Performed By: #### L 501.5200, L100.0100, L500.4050, L501.2300 ####[facility] [address] [place], [address] AST [Catalytic activity/Vol] 22 U/L Normal <=37 [facility] Comment on above: Performed By: #### L 501.5200, L100.0100, L500.4050, L501.2300 ####[facility] [address] [place], [address] Bilirubin [Mass/Vol] 0.16 mg/dL Normal 0.00-1.30 [facility] Comment on above: Performed By: #### L 501.5200, L100.0100, L500.4050, L501.2300 ####[facility] [address] [place], [address] BUN/CRE 6.6 RATIO Low 10-20 [facility] Comment on above: Performed By: #### L 501.5200, L100.0100, L500.4050, L501.2300 ####[facility] [address] [place], [address] Calcium [Mass/Vol] 7.8 mg/dL Normal 7.6-11.0 [facility] Comment on above: Performed By: #### L 501.5200, L100.0100, L500.4050, L501.2300 ####[facility] [address] [place], [address] Chloride [Moles/Vol] 104 mmol/L Normal 98-108 [facility] Comment on above: Performed By: #### L 501.5200, L100.0100, L500.4050, L501.2300 ####[facility] [address] [place], [address] CO2 [Moles/Vol] 24.6 mmol/L Normal 21.0-32.0 [facility] Comment on above: Performed By: #### L 501.5200, L100.0100, L500.4050, L501.2300 ####[facility] [address] [place], [address] Creatinine [Mass/Vol] 1.01 mg/dL Normal 0.70-1.20 [facility] Comment on above: Performed By: #### L 501.5200, L100.0100, L500.4050, L501.2300 ####[facility] [address] [place], [address] ECRCL 145.41 ml/min Normal 50-250 [facility] Comment on above: Performed By: #### L 501.5200, L100.0100, L500.4050, L501.2300 ####[facility] [address] [place], [address] GAP 8 Normal 5-15 [facility] Comment on above: Performed By: #### L 501.5200, L100.0100, L500.4050, L501.2300 ####[facility] [address] [place], [address] GFR/1.73 sq M.predicted among non-blacks MDRD (S/P/Bld) [Vol rate/Area] 100 mL/min/{1.73_m2} Normal >60 [facility] Comment on above: Result Comment: mL/m in/1.73m2 CKD-EPI Creatinine Equation (2020) Performed By: #### L 501.5200, L100.0100, L500.4050, L501.2300 ####[facility] [address] [place], [address] Globulin (S) [Mass/Vol] 1.9 g/dL Low 2.2-4.2 [facility] Comment on above: Performed By: #### L 501.5200, L100.0100, L500.4050, L501.2300 ####[facility] [address] [place], [address] Glucose [Mass/Vol] 97 mg/dL Normal 70-99 [facility] Comment on above: Performed By: #### L 501.5200, L100.0100, L500.4050, L501.2300 ####[facility] [address] [place], [address] Potassium [Moles/Vol] 4.3 mmol/L Normal 3.3-5.1 [facility] Comment on above: Performed By: #### L 501.5200, L100.0100, L500.4050, L501.2300 ####[facility] [address] [place], [address] Sodium [Moles/Vol] 137 mmol/L Normal 133-145 [facility] Comment on above: Performed By: #### L 501.5200, L100.0100, L500.4050, L501.2300 ####[facility] [address] [place], [address] T PROT 5.6 g/dL Low 5.9-8.4 [facility] Comment on above: Performed By: #### L 501.5200, L100.0100, L500.4050, L501.2300 ####[facility] [address] [place], [address] Urea nitrogen [Mass/Vol] 7 mg/dL Normal 4-19 [facility] Comment on above: Performed By: #### L 501.5200, L100.0100, L500.4050, L501.2300 ####[facility] [address] [place], [address] Electrocardiogram reportOrde red By: Manuel Kim on 11-03-2024 EKG study [facility] [address] [address] 12 Lead EKG 11/03/24 0504 MR#: [id number] Acct: [id number] Name: AIMEE DUCKWORTH Rep #:[id number] : [...] rhythm Normal ECG Confirmed by Manuel Kim ([id number]), news video editor JANELL RIVERA ([id number]) on 11/03/2024 7:58:31 AM Referred By: LORI Confirmed By: Manuel Kim 11/03/24 0758 Date _ Manuel Kim MD CC: Dr. Román Sandoval MD; Dr. Kamron Erickson MD ~ Signed [facility] Other Phone: EKG study [facility] [address] [place] [address] 12 Lead EKG 11/02/24 1148 MR#: [id number] Acct: [id number] Name: AIMEE DUCKWORTH Rep #:[id number] : [...] QT Abnormal ECG Confirmed by Manuel Kim ([id number]), news video editor JANELL RIVERA ([id number]) on 11/03/2024 7:47:36 AM Referred By: Confirmed By: Manuel Kim 11/03/24 0747 Date _ Manuel Kim MD CC: Dr. Román Sandoval MD; Dr. Kamron Erickson MD; Dr. Tramaine Tovar MD ~ Signed [facility] Other Phone: Eosinophil percentageOrdered By: Román Sandoval on 11-03-2024 Eosinophils/100 WBC (Bld) 0.5 % 0-5 [facility] Erythrocyte distribution wid th (RBC) [Ratio]Ordered By: Román Sandoval on 11-03-2024 Erythrocyte distribution width (RBC) [Entitic vol] 48.2 fL High 35.1-43.9 [facility] Erythrocyte distribution wid th ratioOrdered By: Román Sandoval on 11-03-2024 Erythrocyte distribution width (RBC) [Ratio] 13.8 % 11.6-14.6 [facility] Estimation of creatinine vick aranceOrdered By: Román Sandoval on 11-03-2024 Estimated Creatinine Clearance Calc 145.41 ml/min 50-250 [facility] GFR/1.73 sq M.predicted lana g non-blacks MDRD (S/P/Bld) [Vol rate/Area]Ordered By: Román Sandoval on 11-03-2024 Estimated GFR (MDRD) Non-Af Amer 100 >60 [facility] Comment on above: mL/min/1.73m2 CKD-EP I Creatinine Equation (2020) Hematocrit Auto (Bld) [Volum e fraction]Ordered By: Román Sandoval on 11-03-2024 Hematocrit (Bld) [Volume fraction] 38.0 % Low 40-54 [facility] Hemoglobin measurementOrdere d By: Román Sandoval on 11-03-2024 Hemoglobin (Bld) [Mass/Vol] 12.6 g/dL Low 13.0-16. 5 [facility] Immature granulocytes/100 WB C Auto (Bld)Ordered By: Román Sandoval on 11-03-2024 Immature granulocytes/100 WBC (Bld) 0.500 % 0.0-0.9 [facility] Comment on above: IG% - Immature Granu locytes (promyelocytes, myelocytes and metamyelocytes) > 1% indicates that a LEFT SHIFT is Present. Laboratory - Chemistry and C hemistry - challengeOrdered By: Román Sandoval on 11-03-2024 AST [Catalytic activity/Vol] 22 U/L <38 [facility] Lymphocytes Auto (Unsp spec) [#/Vol]Ordered By: Román Sandoval on 11-03-2024 Lymphocytes (Bld) [#/Vol] 1.14 10*3/uL 0.83-4.5 1 [facility] Lymphocytes/100 WBC Auto (Un sp spec)Ordered By: Román Sandoval on 11-03-2024 Lymphocytes/100 WBC (Bld) 19.2 % 19-41 [facility] MCV (mean corpuscular volume ) determinationOrdered By: Román Sandoval on 11-03-2024 MCV (RBC) [Entitic vol] 94.1 fL High 80-94 [facility] Magnesiumon 11-03-2024 Magnesium [Mass/Vol] 2.4 mg/dL High 1.5-2.2 [facility] Comment on above: Performed By: #### L 501.5200, L100.0100, L500.4050, L501.2300 ####[facility] [address] [place], [address] Magnesium (Unsp spec) [Mass/ Vol]Ordered By: Román Sandoval on 11-03-2024 Magnesium [Mass/Vol] 2.4 mg/dL High 1.5-2.2 [facility] Mean corpuscular hemoglobin (MCH) determinationOrdered By: Román Sandoval on 11-03-2024 MCH (RBC) [Entitic mass] 31.2 pg 27.0-32.0 [facility] Mean corpuscular hemoglobin concentration (MCHC) determinationOrdered By: Román Sandoval on 11-03-2024 MCHC (RBC) [Mass/Vol] 33.2 g/dL 32-36 [facility] Mean platelet volume determi nationOrdered By: Román Sandoval on 11-03-2024 Platelet mean volume (Bld) [Entitic vol] 9.6 fL 6.2-12.0 [facility] Monocyte percentageOrdered B y: Román Sandoval on 11-03-2024 Monocytes/100 WBC (Bld) 16.0 % High 0-10 [facility] Neutrophil percentageOrdered By: Román Sandoval on 11-03-2024 Neutrophils/100 WBC (Bld) 63.5 % 47-70 [facility] Nucleated red blood cell per centageOrdered By: Román Sandoval on 11-03-2024 Nucleated RBC/100 WBC (Bld) [Ratio] 0 % 0-5 [facility] Phosphoruson 11-03-2024 Phosphate [Mass/Vol] 3.5 mg/dL Normal 2.7-4.5 [facility] Comment on above: Performed By: #### L 501.5200, L100.0100, L500.4050, L501.2300 ####[facility] [address] [place], [address] Platelet countOrdered By: Huy Sandoval on 11-03-2024 Platelets (Bld) [#/Vol] 172 10*3/uL 150-450 [facility] Potassium (Unsp spec) [Mass/ Vol]Ordered By: Román Sandoval on 11-03-2024 Potassium [Moles/Vol] 4.3 mmol/L 3.3-5.1 [facility] RBC Auto (Bld) [#/Vol]Ordere d By: Román Sandoval on 11-03-2024 RBC (Bld) [#/Vol] 4.04 10*6/uL Low 4.6-6.2 [facility] Serum creatinine measurement (mass/volume)Ordered By: Román Sandoval on 11-03-2024 Creatinine [Mass/Vol] 1.01 mg/dL 0.70-1.20 [facility] Serum globulin measurementOr dered By: Román Sandoval on 11-03-2024 Globulin (S) [Mass/Vol] 1.9 g/dL Low 2.2-4.2 [facility] Serum glucose measurement (m ass/volume)Ordered By: Román Sandoval on 11-03-2024 Glucose [Mass/Vol] 97 mg/dL 70-99 [facility] Serum or plasma alanine comer otransferase (ALT) measurementOrdered By: Román Sandoval on 11-03-2024 ALT [Catalytic activity/Vol] 19 U/L <47 [facility] Serum or plasma albumin mauro urement (mass/volume)Ordered By: Román Sandoval on 11-03-2024 Albumin [Mass/Vol] 3.6 g/dL 3.5-5.0 [facility] Serum or plasma albumin/glob ulin mass ratioOrdered By: Román Sandoval on 11-03-2024 Albumin/Globulin [Mass ratio] 1.9 {ratio} 0.9-2.4 [facility] Serum or plasma alkaline fatuma sphatase measurementOrdered By: Román Sandoval on 11-03-2024 ALP [Catalytic activity/Vol] 66 U/L 40-129 [facility] Serum or plasma calcium mauro urement (mass/volume)Ordered By: Román Sandoval on 11-03-2024 Calcium [Mass/Vol] 7.8 mg/dL 7.6-11.0 [facility] Serum or plasma urea nitroge n measurement (mass/volume)Ordered By: Román Sandoval on 11-03-2024 Urea nitrogen [Mass/Vol] 7 mg/dL 4-19 [facility] Serum phosphorus measurement Ordered By: Román Sandoval on 11-03-2024 Phosphorus Level 3.5 mg/dL 2.7-4.5 [facility] Sodium levelOrdered By: Matt Sandoval on 11-03-2024 Sodium [Moles/Vol] 137 mmol/L 133-145 [facility] Total proteinOrdered By: Maxx Sandoval on 11-03-2024 Protein [Mass/Vol] 5.6 g/dL Low 5.9-8.4 [facility] White blood cell (WBC) count Ordered By: Román Sandoval on 11-03-2024 WBC (Bld) [#/Vol] 5.9 10*3/uL 4.4-11.0 [facility] 12 Lead EKGon 11-02-2024 12 Lead EKG [facility] [address] [place] [address] 12 Lead EKG 11/02/24 1148 MR#: [id number] Acct: [id number] Name: AIMEE DUCKWORTH Rep #: [id number] : 1990 34 From: Manuel Kim MD [...] Abnormal ECG Confirmed by Manuel Kim ([id number]), news video editor JANELL RIVERA ([id number]) on 11/03/2024 7:47:36 AM Referred By: Confirmed By: Manuel Kim 11/03/24 0747 Date Manuel Kim MD CC: Dr. Román Sandoval MD; Dr. Kamron Erickson MD; Dr. Tramaine Tovar MD Signed Normal [facility] Absolute neutrophil countOrd ered By: Tramaine Tovar on 11-02-2024 Neutrophils (Bld) [#/Vol] 5.0 10*3/uL 2.0-7.7 [facility] Acetaminophen (Tylenol) Leve sandra 11-02-2024 Acetaminophen [Mass/Vol] 10.5 ug/mL Normal 8.0-19.0 [facility] Comment on above: Result Comment: Acet aminophen concentrations > 200 ug/mL four hours after ingestion, > 100 ug/mL eight hours after ingestion, and > 50 ug/mL 12 hours after ingestion are potentially toxic. Performed By: #### L 500.2500, L501.9100, L505.5000, L100.0100 #### [facility] Laboratory [address] [place], [address] Alcohol, Blood (Medical)-Ser umon 11-02-2024 SERUM ETOH < 10.1 Normal <=10.0 [facility] Comment on above: Result Comment: This test is for medical purposes only. The legal definition of intoxication varies according to local law. Performed By: #### L 500.2500, L501.9100, L505.5000, L100.0100 #### [facility] Laboratory [address] [place], [place], [id number] Amphetamines Screen method > 1000 ng/mL Ql (U)Ordered By: Tramaine Tovar on 11-02-2024 Amphetamines Ql (U) Positive <1000 ng/mL [facility] Comment on above: If confirmation test ing is needed, a separate order will be required to send out testing to the reference laboratory. Urine Barbiturates Screen Negative < 200 ng/mL [facility] Anion gap in Serum or Plasma Ordered By: Tramaine Tovar on 11-02-2024 Anion gap [Moles/Vol] 14 mmol/L 5-15 [facility] BUN/creatinine ratioOrdered By: Tramainedelia Tovar on 11-02-2024 Urea nitrogen/Creatinine [Mass ratio] 7.4 mg/mg Low 10-20 [facility] Basophil percentageOrdered B y: Tramaine Tovar on 11-02-2024 Basophils/100 WBC (Bld) 0.5 % 0-1 [facility] Bilirubin, totalOrdered By: Tramainedelia Tovar on 11-02-2024 Bilirubin [Mass/Vol] 0.15 mg/dL 0.00-1.30 [facility] CBC W/Diff, Automatedon SMEAR COMMENT SCANNED Normal [facility] Comment on above: Result Comment: SLIG HT MONOCYTOSIS NOTED Performed By: #### L 505.5000, L501.8300, L501.9100, L100.0100, L501.8400, L500.4050 ####[facility] [address] [place], [address] Carbon dioxide, total [Moles /volume] in Central venous bloodOrdered By: Tramaine Tovar on 11-02-2024 CO2 [Moles/Vol] 23.4 mmol/L 21.0-32.0 [facility] Chloride assayOrdered By: Alanis Tovar on 11-02-2024 Chloride [Moles/Vol] 99 mmol/L 98-108 [facility] Comprehensive Metabolic Prof ilon 11-02-2024 Albumin [Mass/Vol] 3.9 g/dL Normal 3.5-5.0 [facility] Comment on above: Performed By: #### L 505.5000, L501.8300, L501.9100, L100.0100, L501.8400, L500.4050 ####[facility] [address] [place], [address] Albumin/Globulin [Mass ratio] 2.0 {ratio} Normal 0.9-2.4 [facility] Comment on above: Performed By: #### L 505.5000, L501.8300, L501.9100, L100.0100, L501.8400, L500.4050 ####[facility] [address] [place], [address] ALK PHOS 74 U/L Normal 40-129 [facility] Comment on above: Performed By: #### L 505.5000, L501.8300, L501.9100, L100.0100, L501.8400, L500.4050 ####[facility] [address] [place], [address] ALT [Catalytic activity/Vol] 21 U/L Normal <=46 [facility] Comment on above: Performed By: #### L 505.5000, L501.8300, L501.9100, L100.0100, L501.8400, L500.4050 ####[facility] [address] [place], [address] AST [Catalytic activity/Vol] 24 U/L Normal <=37 [facility] Comment on above: Performed By: #### L 505.5000, L501.8300, L501.9100, L100.0100, L501.8400, L500.4050 ####[facility] [address] [place], [address] Bilirubin [Mass/Vol] 0.15 mg/dL Normal 0.00-1.30 [facility] Comment on above: Performed By: #### L 505.5000, L501.8300, L501.9100, L100.0100, L501.8400, L500.4050 ####[facility] [address] [place], [address] BUN/CRE 7.4 RATIO Low 10-20 [facility] Comment on above: Performed By: #### L 505.5000, L501.8300, L501.9100, L100.0100, L501.8400, L500.4050 ####[facility] [address] [place], [address] Calcium [Mass/Vol] 8.0 mg/dL Normal 7.6-11.0 [facility] Comment on above: Performed By: #### L 505.5000, L501.8300, L501.9100, L100.0100, L501.8400, L500.4050 ####[facility] [address] [place], [address] Chloride [Moles/Vol] 99 mmol/L Normal 98-108 [facility] Comment on above: Performed By: #### L 505.5000, L501.8300, L501.9100, L100.0100, L501.8400, L500.4050 ####[facility] [address] [place], [address] CO2 [Moles/Vol] 23.4 mmol/L Normal 21.0-32.0 [facility] Comment on above: Performed By: #### L 505.5000, L501.8300, L501.9100, L100.0100, L501.8400, L500.4050 ####[facility] [address] [place], [address] Creatinine [Mass/Vol] 1.22 mg/dL High 0.70-1.20 [facility] Comment on above: Performed By: #### L 505.5000, L501.8300, L501.9100, L100.0100, L501.8400, L500.4050 ####[facility] [address] [place], [place], [id number] ECRCL 119.42 ml/min Normal 50-250 [facility] Comment on above: Performed By: #### L 505.5000, L501.8300, L501.9100, L100.0100, L501.8400, L500.4050 ####[facility] [address] [place], [address] GAP 14 Normal 5-15 [facility] Comment on above: Performed By: #### L 505.5000, L501.8300, L501.9100, L100.0100, L501.8400, L500.4050 ####[facility] [address] [place], [address] GFR/1.73 sq M.predicted among non-blacks MDRD (S/P/Bld) [Vol rate/Area] 80 mL/min/{1.73_m2} Normal >60 [facility] Comment on above: Result Comment: mL/m in/1.73m2 CKD-EPI Creatinine Equation (2020) Performed By: #### L 505.5000, L501.8300, L501.9100, L100.0100, L501.8400, L500.4050 ####[facility] [address] [place], [address] Globulin (S) [Mass/Vol] 2.0 g/dL Low 2.2-4.2 [facility] Comment on above: Performed By: #### L 505.5000, L501.8300, L501.9100, L100.0100, L501.8400, L500.4050 ####[facility] [address] [place], [address] Glucose [Mass/Vol] 161 mg/dL High 70-99 [facility] Comment on above: Performed By: #### L 505.5000, L501.8300, L501.9100, L100.0100, L501.8400, L500.4050 ####[facility] [address] [place], [address] Potassium [Moles/Vol] 3.4 mmol/L Normal 3.3-5.1 [facility] Comment on above: Performed By: #### L 505.5000, L501.8300, L501.9100, L100.0100, L501.8400, L500.4050 ####[facility] [address] [place], [address] Sodium [Moles/Vol] 136 mmol/L Normal 133-145 [facility] Comment on above: Performed By: #### L 505.5000, L501.8300, L501.9100, L100.0100, L501.8400, L500.4050 ####[facility] [address] [place], [address] T PROT 5.9 g/dL Normal 5.9-8.4 [facility] Comment on above: Performed By: #### L 505.5000, L501.8300, L501.9100, L100.0100, L501.8400, L500.4050 ####[facility] [address] [place], [address] Urea nitrogen [Mass/Vol] 9 mg/dL Normal 4-19 [facility] Comment on above: Performed By: #### L 505.5000, L501.8300, L501.9100, L100.0100, L501.8400, L500.4050 ####[facility] [address] [place], [address] Emergency Department Summary on 11-02-2024 Emergency Department Summary [facility] Medical Records Department [address] [place] [address] Emergency Department Summary 11/02/24 MR#: [id number] Acct: [id number] Name: AIMEE DUCKWORTH Rep #: [id number] : 1990 34 From: Tramaine Tovar MD PCP: Dr. 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 Normal [facility] Eosinophil percentageOrdered By: [facility] on 11-02-2024 Eosinophils/100 WBC (Bld) 2.1 % 0-5 [facility] Erythrocyte distribution wid th ratioOrdered By: [facility] on 11-02-2024 Erythrocyte distribution width (RBC) [Ratio] 13.5 % 11.6-14.6 [facility] Erythrocyte distribution wid th standard deviationOrdered By: [facility] on 11-02-2024 Erythrocyte distribution width (RBC) [Entitic vol] 46.1 fL High 35.1-43.9 [facility] Estimation of creatinine vick aranceOrdered By: [facility] on 11-02-2024 Estimated Creatinine Clearance Calc 119.42 ml/min 50-250 [facility] Ethanol [Mass/Vol]Ordered By : [facility] on 11-02-2024 Ethyl Alcohol Level < 10.1 mg/dL <10.1 [facility] Comment on above: This test is for med ical purposes only. The legal definition of intoxication varies according to local law. GFR/1.73 sq M.predicted lana g non-blacks MDRD (S/P/Bld) [Vol rate/Area]Ordered By: Tramaine Tovar on 11-02-2024 Estimated GFR (MDRD) Non-Af Amer 80 >60 [facility] Comment on above: mL/min/1.73m2 CKD-EP I Creatinine Equation (2020) H AND P Exam - Hospitaliston 11-02-2024 H&P Exam - Hospitalist [facility] Medical Records Department [address] [place] [address] H P Exam - Hospitalist 11/02/24 1306 MR#: [id number] Acct: [id number] Name: AIMEE DUCKWORTH Rep #: [id number] : 1990 34 From: Román Sandoval MD [...] % (Auto) 54.1, Lymph % (Auto) 24.9, [place] % (Auto) 18.0 H, Eos % (Auto) [...] ??? Patient (more content not included)... Normal [facility] Hematocrit Auto (Bld) [Volum e fraction]Ordered By: Tramaine Tovar on 11-02-2024 Hematocrit (Bld) [Volume fraction] 40.5 % 40-54 [facility] Hemoglobin measurementOrdere d By: Tramaine Tovar on 11-02-2024 Hemoglobin (Bld) [Mass/Vol] 13.6 g/dL 13.0-16. 5 [facility] Immature granulocytes/100 WB C Auto (Bld)Ordered By: Tramaine Tovar on 11-02-2024 Immature granulocytes/100 WBC (Bld) 0.400 % 0.0-0.9 [facility] Comment on above: IG% - Immature Granu locytes (promyelocytes, myelocytes and metamyelocytes) > 1% indicates that a LEFT SHIFT is Present. Laboratory - Chemistry and C hemistry - challengeOrdered By: Tramaine Tovar on 11-02-2024 AST [Catalytic activity/Vol] 24 U/L <38 [facility] Lymphocytes Auto (Unsp spec) [#/Vol]Ordered By: Tramaine Tovar on 11-02-2024 Lymphocytes (Bld) [#/Vol] 2.30 10*3/uL 0.83-4.5 1 [facility] Lymphocytes/100 WBC Auto (Un sp spec)Ordered By: Tramaine Tovar on 11-02-2024 Lymphocytes/100 WBC (Bld) 24.9 % 19-41 [facility] MCV (mean corpuscular volume ) determinationOrdered By: Tramaine Tovar on 11-02-2024 MCV (RBC) [Entitic vol] 93.3 fL 80-94 [facility] Manual differential comment Bebeto (Bld) [Interp]Ordered By: Tramaine Tovar on 11-02-2024 Differential Comment SCANNED [facility] Comment on above: SLIGHT MONOCYTOSIS N OTED Mean corpuscular hemoglobin (MCH) determinationOrdered By: Tramaine Tovar on 11-02-2024 MCH (RBC) [Entitic mass] 31.3 pg 27.0-32.0 [facility] Mean corpuscular hemoglobin concentration (MCHC) determinationOrdered By: Tramaine Tovar on 11-02-2024 MCHC (RBC) [Mass/Vol] 33.6 g/dL 32-36 [facility] Mean platelet volume determi nationOrdered By: Tramaine Tovar on 11-02-2024 Platelet mean volume (Bld) [Entitic vol] 9.5 fL 6.2-12.0 [facility] Methadone, urineOrdered By: Tramaine Tovar on 11-02-2024 Urine Methadone Screen Negative < 300 ng/mL [facility] Monocyte percentageOrdered B y: Tramaine Tovar on 11-02-2024 Monocytes/100 WBC (Bld) 18.0 % High 0-10 [facility] Neutrophil percentageOrdered By: Tramaine Tovar on 11-02-2024 Neutrophils/100 WBC (Bld) 54.1 % 47-70 [facility] No Panel InformationOrdered By: Tramaine Tovar on 11-02-2024 Urine Buprenorphine Qualitative Negative < 200 ng/mL [facility] Urine Oxycodone Screen Negative < 100 ng/mL [facility] Nucleated red blood cell per centageOrdered By: Tramaine Tovar on 11-02-2024 Nucleated RBC/100 WBC (Bld) [Ratio] 0 % 0-5 [facility] Platelet countOrdered By: Alanis Tovar on 11-02-2024 Platelets (Bld) [#/Vol] 197 10*3/uL 150-450 [facility] Potassium (Unsp spec) [Mass/ Vol]Ordered By: Tramainedelia Tovar on 11-02-2024 Potassium [Moles/Vol] 3.4 mmol/L 3.3-5.1 [facility] Quantitative urine opiates m easurementOrdered By: Tramainedelia Tovar on 11-02-2024 Opiates Ql (U) Negative < 300 ng/mL [facility] RBC Auto (Bld) [#/Vol]Ordere d By: Tramaine Tovar on 11-02-2024 RBC (Bld) [#/Vol] 4.34 10*6/uL Low 4.6-6.2 [facility] Salicylateon 11-02-2024 SALICYLATE 1.8 mg/dL Low 2.8-20.0 [facility] Comment on above: Result Comment: Sali cylate concentrations > 30 mg/dL are potentially toxic. Salicylate concentrations exceeding 60 mg/dL can be lethal. Performed By: #### L 505.5000, L501.8300, L501.9100, L100.0100, L501.8400, L500.4050 ####[facility] [address] [place], [address] Salicylates [Mass/Vol]Ordere d By: Tramaine Tovar on 11-02-2024 Salicylates Level 1.8 mg/dL Low 2.8-20.0 [facility] Comment on above: Salicylate concentra tions > 30 mg/dL are potentially toxic.Salicylate concentrations exceeding 60 mg/dL can be lethal. Serum creatinine measurement (mass/volume)Ordered By: Tramaine Tovar on 11-02-2024 Creatinine [Mass/Vol] 1.22 mg/dL High 0.70-1.20 [facility] Serum globulin measurementOr dered By: Tramaine Tovar on 11-02-2024 Globulin (S) [Mass/Vol] 2.0 g/dL Low 2.2-4.2 [facility] Serum glucose measurement (m ass/volume)Ordered By: Tramaine Tovar on 11-02-2024 Glucose [Mass/Vol] 161 mg/dL High 70-99 [facility] Serum or plasma acetaminophe n measurement (mass/volume)Ordered By: Tramaine Tovar on 11-02-2024 Acetaminophen [Mass/Vol] 10.5 ug/mL 8.0-19.0 [facility] Comment on above: Acetaminophen concen trations > 200 ug/mL four hours after ingestion, > 100 ug/mL eight hours after ingestion, and > 50 ug/mL 12 hours after ingestion are potentially toxic. Serum or plasma alanine comer otransferase (ALT) measurementOrdered By: Tramaine Tovar on 11-02-2024 ALT [Catalytic activity/Vol] 21 U/L <47 [facility] Serum or plasma albumin mauro urement (mass/volume)Ordered By: Tramaine Tovar on 11-02-2024 Albumin [Mass/Vol] 3.9 g/dL 3.5-5.0 [facility] Serum or plasma albumin/glob ulin mass ratioOrdered By: Tramaine Tovar 11-02-2024 Albumin/Globulin [Mass ratio] 2.0 {ratio} 0.9-2.4 [facility] Serum or plasma alkaline fatuma sphatase measurementOrdered By: Tramaine Tovar 11-02-2024 ALP [Catalytic activity/Vol] 74 U/L 40-129 [facility] Serum or plasma calcium mauro urement (mass/volume)Ordered By: Tramaine Tovar on 11-02-2024 Calcium [Mass/Vol] 8.0 mg/dL 7.6-11.0 [facility] Serum or plasma urea nitroge n measurement (mass/volume)Ordered By: Tramaine Tovar 11-02-2024 Urea nitrogen [Mass/Vol] 9 mg/dL 4-19 [facility] Sodium levelOrdered By: Tramaine Tovar on 11-02-2024 Sodium [Moles/Vol] 136 mmol/L 133-145 [facility] Total proteinOrdered By: Tramaine Tvoar 11-02-2024 Protein [Mass/Vol] 5.9 g/dL 5.9-8.4 [facility] Urine Drug Screen (VISTA)on 11-02-2024 AMPHETAMINES Positive Normal <1000 ng/mL [facility] Comment on above: Result Comment: If c onfirmation testing is needed, a separate order will be required to send out testing to the reference laboratory. Performed By: #### L 500.2500, L501.9100, L505.5000, L100.0100 #### [facility] Laboratory [address] [place], [address] BARBITIURATES Negative Normal < 200 ng/mL [facility] Comment on above: Performed By: #### L 500.2500, L501.9100, L505.5000, L100.0100 #### [facility] Laboratory [address] [place], [address] BENZODIAZIPINE Positive Normal < 200 ng/mL [facility] Comment on above: Result Comment: If c onfirmation testing is needed, a separate order will be required to send out testing to the reference laboratory. Performed By: #### L 500.2500, L501.9100, L505.5000, L100.0100 #### [facility] Laboratory [address] [place], [address] BUP Ur Drug Scr Negative Normal < 200 ng/mL [facility] Comment on above: Performed By: #### L 500.2500, L501.9100, L505.5000, L100.0100 #### [facility] Laboratory [address] [place], [address] COCAINE Negative Normal < 300 ng/mL [facility] Comment on above: Performed By: #### L 500.2500, L501.9100, L505.5000, L100.0100 #### [facility] Laboratory [address] [place], [address] Fentanyl Negative Normal [facility] Comment on above: Performed By: #### L 500.2500, L501.9100, L505.5000, L100.0100 #### [facility] Laboratory [address] [place], [address] METHADONE Negative Normal < 300 ng/mL [facility] Comment on above: Performed By: #### L 500.2500, L501.9100, L505.5000, L100.0100 #### [facility] Laboratory [address] [place], [address] OPIATES Negative Normal < 300 ng/mL [facility] Comment on above: Performed By: #### L 500.2500, L501.9100, L505.5000, L100.0100 #### [facility] Laboratory [address] [place], [address] OXYCODONE Negative Normal < 100 ng/mL [facility] Comment on above: Performed By: #### L 500.2500, L501.9100, L505.5000, L100.0100 #### [facility] Laboratory [address] [place], [address] PCP Negative Normal < 25 ng/mL [facility] Comment on above: Performed By: #### L 500.2500, L501.9100, L505.5000, L100.0100 #### [facility] Laboratory [address] [place], [address] THC Positive Normal < 50 ng/mL [facility] Comment on above: Result Comment: If c onfirmation testing is needed, a separate order will be required to send out testing to the reference laboratory. Performed By: #### L 500.2500, L501.9100, L505.5000, L100.0100 #### [facility] Laboratory [address] [place], [address] Urine benzodiazepine levelOr dered By: Tramaine Tovar on 11-02-2024 Benzodiazepines Ql (U) Positive < 200 ng/mL [facility] Comment on above: If confirmation test ing is needed, a separate order will be required to send out testing to the reference laboratory. Urine cocaine levelOrdered B y: Tramaine Tovar on 11-02-2024 Cocaine Ql (U) Negative < 300 ng/mL [facility] Urine fohxp-2-ljocpsvxsmgcgg abinol (THC) measurementOrdered By: Tramaine Tovar on 11-02-2024 Cannabinoids Screen Ql (U) Positive < 50 ng/m L [facility] Comment on above: If confirmation test ing is needed, a separate order will be required to send out testing to the reference laboratory. Urine phencyclidine (PCP) de tectionOrdered By: Tramaine Tovar on 11-02-2024 Phencyclidine Ql (U) Negative < 25 ng/mL [facility] White blood cell (WBC) count Ordered By: Tramaine Tovar on 11-02-2024 WBC (Bld) [#/Vol] 9.2 10*3/uL 4.4-11.0 [facility] fentaNYL Screen Ql (U)Ordere d By: Tramaine Tovar on 11-02-2024 Urine Fentanyl Screen Negative [facility] Absolute neutrophil countOrd ered By: Rodriguez Beavers on 08-03-2024 Neutrophils (Bld) [#/Vol] 3.8 10*3/uL 2.0-7.7 [facility] Alcohol, Blood (Medical)-Ser umon 08-03-2024 SERUM ETOH < 3.0 Normal [facility] Comment on above: Result Comment: The serum:whole blood ethanol ratio is approximately 1.14 and varies slightly with hematocrit. Medical Alcohol reference interval and critical value in non-tolerant individuals; 50 - 100 Impairment 100 Intoxication 100 - 250 Severe Poisoning 250 - 400 Deep/possible fatal coma Performed By: #### L 500.2500, L501.9100, L505.5000, L100.0100 #### [facility] Laboratory [address] [place], [address] Atypical lymphocyte percenta geOrdered By: Rodriguez Beavers on 08-03-2024 Atypical Lymphocytes 1+ % [facility] Basic Metabolic Profile (BMP )on 08-03-2024 BUN/CRE 12.7 RATIO Normal 10-20 [facility] Comment on above: Performed By: #### L 500.2500, L501.9100, L505.5000, L100.0100 #### [facility] Laboratory [address] [place], [address] CA,Total 8.4 mg/dL Low 8.5-10.1 [facility] Comment on above: Performed By: #### L 500.2500, L501.9100, L505.5000, L100.0100 #### [facility] Laboratory [address] [place], [address] Chloride [Moles/Vol] 104 mmol/L Normal 98-107 [facility] Comment on above: Performed By: #### L 500.2500, L501.9100, L505.5000, L100.0100 #### [facility] Laboratory [address] [place], [address] CO2 [Moles/Vol] 31.0 mmol/L Normal 21.0-32.0 [facility] Comment on above: Performed By: #### L 500.2500, L501.9100, L505.5000, L100.0100 #### [facility] Laboratory [address] [place], [address] Creatinine [Mass/Vol] 0.95 mg/dL Normal 0.70-1.30 [facility] Comment on above: Result Comment: The validity of the calculated GFR GFRAA in patients over 70 years has not been determined. Clinical correlation is essential. Performed By: #### L 500.2500, L501.9100, L505.5000, L100.0100 #### [facility] Laboratory [address] [place], [address] ECRCL 144.48 ml/min Normal [facility] Comment on above: Performed By: #### L 500.2500, L501.9100, L505.5000, L100.0100 #### [facility] Laboratory [address] [place], [address] EST GFR - AA 117 mL/min Normal >60 [facility] Comment on above: Result Comment: Afri can Welsh GFR Calc Performed By: #### L 500.2500, L501.9100, L505.5000, L100.0100 #### [facility] Laboratory [address] [place], [address] GAP 6 Normal 5-15 [facility] Comment on above: Performed By: #### L 500.2500, L501.9100, L505.5000, L100.0100 #### [facility] Laboratory [address] [place], [address] GFR/1.73 sq M.predicted among non-blacks MDRD (S/P/Bld) [Vol rate/Area] 97 mL/min/{1.73_m2} Normal >60 [facility] Comment on above: Result Comment: Non- GFR Calc Performed By: #### L 500.2500, L501.9100, L505.5000, L100.0100 #### [facility] Laboratory [address] [place], [address] Glucose [Mass/Vol] 89 mg/dL Normal 74-106 [facility] Comment on above: Performed By: #### L 500.2500, L501.9100, L505.5000, L100.0100 #### [facility] Laboratory [address] [place], [address] Potassium [Moles/Vol] 3.1 mmol/L Low 3.5-5.1 [facility] Comment on above: Performed By: #### L 500.2500, L501.9100, L505.5000, L100.0100 #### [facility] Laboratory [address] [place], [address] Sodium [Moles/Vol] 141 mmol/L Normal 136-145 [facility] Comment on above: Performed By: #### L 500.2500, L501.9100, L505.5000, L100.0100 #### [facility] Laboratory [address] [place], [address] Urea nitrogen [Mass/Vol] 12 mg/dL Normal 7-18 [facility] Comment on above: Performed By: #### L 500.2500, L501.9100, L505.5000, L100.0100 #### [facility] Laboratory [address] [place], [address] Basophil percentageOrdered B y: Rodriguez Beavers on 08-03-2024 Basophils/100 WBC (Bld) 0.5 % 0-1 [facility] Blood urea nitrogen (BUN)/cr eatinine ratioOrdered By: Rodriguez Beavers on 08-03-2024 Urea nitrogen/Creatinine [Mass ratio] 12.7 mg/mg 10-20 [facility] Brain/Head without Contrasto n 08-03-2024 Brain/Head without Contrast [facility] Imaging Services [address] [place] [address] Brain/Head without Contrast MR#: [id number] Acct: [id number] Name: AIMEE DUCKWORTH Rep #: [id number] : 1990 M 33 From: Soto Lamb MD PCP: Dr. Kamron Erickson MD Status: REG Study: Brain/Head without Contrast Date of Exam: 07/06 08/27 Exam# [id number] Ordering Dr: Rodriguez Beavers DO [id number] EXAM: CT HEAD WITHOUT INTRAVENOUS CONTRAST CLINICAL [...] Kamron Erickson MD; Dr. Rodriguez Beavers DO Sericulturist: Signed Normal [facility] CBC W/Diff, Automatedon - ATYPICAL LYMPH 1+ Normal [facility] Comment on above: Performed By: #### L 500.2500, L501.9100, L505.5000, L100.0100 #### [facility] Laboratory [address] [place], [address] Carbon dioxide measurementOr dered By: Rodriguez Beavers on 08-03-2024 CO2 [Moles/Vol] 31.0 mmol/L 21.0-32.0 [facility] Chloride measurementOrdered By: Rodriguez Beavers on 08-03-2024 Chloride [Moles/Vol] 104 mmol/L 98-107 [facility] Emergency Department Summary on 08-03-2024 Emergency Department Summary [facility] Medical Records Department [address] [place] [address] Emergency Department Summary 08/03/24 MR#: [id number] Acct: [id number] Name: AIMEE DUCKWORTH Rep #: [id number] : 1990 33 From: Rodriguez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 correlation is essential. Serum or plasma urea nitroge n measurement (mass/volume)Ordered By: Gustavo Garcia on 04-13-2023 Urea nitrogen [Mass/Vol] 8 mg/dL 7-18 [facility] Thin prep Papanicolaou smear with manual screeningOrdered By: Gustavo Garcia on 04-13-2023 Thin prep Papanicolaou smear with manual screening 10 U/L 15-37 [facility] Thin prep Papanicolaou smear with manual screening 6 5-15 [facility] Absolute lymphocyte counton 05-29-2022 Lymphocytes Auto (Unsp spec) [#/Vol] 2.50 10*3/uL 0.83-4.51 [facility] Work Phone: Basophil percentageon 2021 Basophils/100 WBC (Bld) 0.3 % 0-1 [facility] Work Phone: Bilirubin [Mass/Vol] 0.30 mg/dL 0.20-1.00 [facility] Work Phone: [phone] Comment on above: For patients on eltr ombopag therapy, use of Dimension Picabo TBIL is not recommended. Chloride [Moles/Vol] 110 mmol/L 98-107 [facility] Work Phone: Eosinophils/100 WBC (Bld) 0.8 % 0-5 [facility] Work Phone: Glucose [Mass/Vol] 94 mg/dL 74-106 [facility] Work Phone: Neutrophils (Bld) [#/Vol] 8.4 10*3/uL 2.0-7.7 [facility] Work Phone: Neutrophils/100 WBC (Bld) 71.5 % 47-70 [facility] Work Phone: Potassium [Moles/Vol] 3.7 mmol/L 3.5-5.1 [facility] Work Phone: Protein [Mass/Vol] 7.6 g/dL 6.4-8.2 [facility] Work Phone: Sodium [Moles/Vol] 142 mmol/L 136-145 [facility] Work Phone: WBC (Bld) [#/Vol] 11.8 10*3/uL 4.4-11.0 [facility] Work Phone: Blood erythrocytes count (nu mber/volume)on 05-29-2022 RBC (Bld) [#/Vol] 4.87 10*6/uL 4.6-6.2 [facility] Work Phone: Blood hemoglobin measurement (mass/volume)on 05-29-2022 Hemoglobin (Bld) [Mass/Vol] 14.8 g/dL 13.0-16. 5 [facility] Work Phone: Blood lymphocytes/100 leukoc yteson 05-29-2022 Lymphocytes/100 WBC (Bld) 21.2 % 19-41 [facility] Work Phone: Blood monocytes/100 leukocyt eson 05-29-2022 Monocytes/100 WBC (Bld) 5.8 % 0-10 [facility] Work Phone: Blood platelet mean volumeon 05-29-2022 Platelet mean volume (Bld) [Entitic vol] 9.6 fL 6.2-12.0 [facility] Work Phone: Determination of erythrocyte mean corpuscular volume (MCV)on 05-29-2022 MCV (RBC) [Entitic vol] 91.8 fL 80-94 [facility] Work Phone: Hematocrit Auto (Bld) [Volum e fraction]on 05-29-2022 Hematocrit (Bld) [Volume fraction] 44.7 % 40-54 [facility] Work Phone: Laboratory - Chemistry and C hemistry - challengeon 05-29-2022 ALP [Catalytic activity/Vol] 94 U/L 45-117 [facility] Work Phone: ALT [Catalytic activity/Vol] 23 U/L 16-61 [facility] Work Phone: CO2 [Moles/Vol] 26.0 mmol/L 21.0-32.0 [facility] Work Phone: Globulin (S) [Mass/Vol] 3.6 g/dL 2.2-4.2 [facility] Work Phone: Urea nitrogen/Creatinine [Mass ratio] 11.9 mg/mg 10-20 [facility] Work Phone: Laboratory - Drug toxicology on 05-29-2022 Amphetamines Ql (U) Negative <1000 ng/mL [facility] Work Phone: Benzodiazepines Ql (U) Negative < 200 ng/mL [facility] Work Phone: Cannabinoids Screen Ql (U) Positive < 50 ng/m L [facility] Work Phone: Cocaine Ql (U) Negative < 300 ng/mL [facility] Work Phone: Opiates Ql (U) Negative < 300 ng/mL [facility] Work Phone: Laboratory - Hematology and Cell countson 05-29-2022 Erythrocyte distribution width (RBC) [Entitic vol] 42.7 fL 35.1-43.9 [facility] Work Phone: Erythrocyte distribution width (RBC) [Ratio] 12.6 % 11.6-14.6 [facility] Work Phone: Immature granulocytes/100 WBC (Bld) 0.400 % 0.0-0.9 [facility] Work Phone: Comment on above: IG% - Immature Granu locytes (promyelocytes, myelocytes and metamyelocytes) > 1% indicates that a LEFT SHIFT is Present. MCH (RBC) [Entitic mass] 30.4 pg 27.0-32.0 [facility] Work Phone: Nucleated RBC/100 WBC (Bld) [Ratio] 0 % 0-5 [facility] Work Phone: MCHC Auto (RBC) [Mass/Vol]on 05-29-2022 MCHC (RBC) [Mass/Vol] 33.1 g/dL 32-36 [facility] Work Phone: No Panel Informationon 05-29 Estimated Creatinine Clearance Calc 99.56 ml/min [facility] Work Phone: Estimated GFR (MDRD) Amer 92 mL/min >60 [facility] Work Phone: Comment on above: GFR Calc Estimated GFR (MDRD) Non-Af Amer 76 mL/min >60 [facility] Work Phone: Comment on above: Non- GFR Calc Ethyl Alcohol Level < 3.0 mg/dL [facility] Work Phone: Comment on above: The serum:whole bloo d ethanol ratio is approximately 1.14and varies slightly with hematocrit. Medical Alcohol reference interval and critical value innon-tolerant individuals; 50 - 100 Impairment 100 Intoxication 100 - 250 Severe Poisoning 250 - 400 Deep/possible fatal coma MDMA (Ecstasy) Screen Negative < 500 ng/mL [facility] Work Phone: Urine Barbiturates Screen Negative < 200 ng/mL [facility] Work Phone: Urine Drug Screen Comment [facility] Work Phone: Comment on above: CONFIRMATORY TESTING [...] Urine Methadone Screen Negative < 300 ng/mL [facility] Work Phone: [phone] Platelets bldon 05-29-2022 Platelets (Bld) [#/Vol] 336 10*3/uL 150-450 [facility] Work Phone: [phone] Serum or plasma albumin mauor urement (mass/volume)on 05-29-2022 Albumin [Mass/Vol] 4.0 g/dL 3.2-5.0 [facility] Work Phone: [phone] Serum or plasma albumin/glob ulin mass ratioon 05-29-2022 Albumin/Globulin [Mass ratio] 1.1 {ratio} 0.9-2.4 [facility] Work Phone: [phone] Serum or plasma calcium mauro urement (mass/volume)on 05-29-2022 Calcium [Mass/Vol] 9.1 mg/dL 8.5-10.1 [facility] Work Phone: [phone] Serum or plasma creatinine m easurement (mass/volume)on 05-29-2022 Creatinine [Mass/Vol] 1.18 mg/dL 0.70-1.30 [facility] Work Phone: Comment on above: The validity of the calculated GFR & GFRAA in patients over 70 years has not been determined. Clinical correlation is essential. Serum or plasma urea nitroge n measurement (mass/volume)on 05-29-2022 Urea nitrogen [Mass/Vol] 14 mg/dL 7-18 [facility] Work Phone: Thin prep Papanicolaou smear with manual screeningon 05-29-2022 Thin prep Papanicolaou smear with manual screening 17 U/L 15-37 [facility] Work Phone: [phone] Thin prep Papanicolaou smear with manual screening 6 5-15 [facility] Work Phone: Urine phencyclidine (PCP) de tectionon 05-29-2022 Phencyclidine Ql (U) Negative < 25 ng/mL [facility] Work Phone: Absolute lymphocyte counton 01-30-2022 Lymphocytes Auto (Unsp spec) [#/Vol] 0.87 10*3/uL 0.83-4.51 [facility] Work Phone: Basophil percentageon 2021 Basophils/100 WBC (Bld) 0.2 % 0-1 [facility] Work Phone: Chloride [Moles/Vol] 106 mmol/L 98-107 [facility] Work Phone: Eosinophils/100 WBC (Bld) 0.1 % 0-5 [facility] Work Phone: Glucose [Mass/Vol] 109 mg/dL 74-106 [facility] Work Phone: Comment on above: Fasting Glucose resu lt from 100 to 125 mg/dL suggests IMPAIRED HOMEOSTASIS per A.D.A. criteria. Neutrophils (Bld) [#/Vol] 10.6 10*3/uL 2.0-7.7 [facility] Work Phone: Neutrophils/100 WBC (Bld) 89.3 % 47-70 [facility] Work Phone: Potassium [Moles/Vol] 3.6 mmol/L 3.5-5.1 [facility] Work Phone: Sodium [Moles/Vol] 137 mmol/L 136-145 [facility] Work Phone: WBC (Bld) [#/Vol] 11.8 10*3/uL 4.4-11.0 [facility] Work Phone: Blood erythrocytes count (nu mber/volume)on 01-30-2022 RBC (Bld) [#/Vol] 5.28 10*6/uL 4.6-6.2 [facility] Work Phone: Blood hemoglobin measurement (mass/volume)on 01-30-2022 Hemoglobin (Bld) [Mass/Vol] 15.7 g/dL 13.0-16. 5 [facility] Work Phone: [phone] Blood lymphocytes/100 leukoc yteson 01-30-2022 Lymphocytes/100 WBC (Bld) 7.3 % 19-41 [facility] Work Phone: Blood manual differential co mment interpretation (narrative result)on 01-30-2022 Manual differential comment Bebeto (Bld) [Interp] See comment [facility] Work Phone: Comment on above: AUTO DIFF [place] Blood monocytes/100 leukocyt eson 01-30-2022 Monocytes/100 WBC (Bld) 2.7 % 0-10 [facility] Work Phone: Blood platelet mean volumeon 01-30-2022 Platelet mean volume (Bld) [Entitic vol] 9.9 fL 6.2-12.0 [facility] Work Phone: Determination of erythrocyte mean corpuscular volume (MCV)on 01-30-2022 MCV (RBC) [Entitic vol] 94.3 fL 80-94 [facility] Work Phone: Hematocrit Auto (Bld) [Volum e fraction]on 01-30-2022 Hematocrit (Bld) [Volume fraction] 49.8 % 40-54 [facility] Work Phone: Laboratory - Chemistry and C hemistry - challengeon 01-30-2022 CO2 [Moles/Vol] 20.0 mmol/L 21.0-32.0 [facility] Work Phone: Urea nitrogen/Creatinine [Mass ratio] 7.0 mg/mg 10-20 [facility] Work Phone: Laboratory - Hematology and Cell countson 01-30-2022 Erythrocyte distribution width (RBC) [Entitic vol] 42.8 fL 35.1-43.9 [facility] Work Phone: Erythrocyte distribution width (RBC) [Ratio] 12.4 % 11.6-14.6 [facility] Work Phone: Immature granulocytes/100 WBC (Bld) 0.400 % 0.0-0.9 [facility] Work Phone: Comment on above: IG% - Immature Granu locytes (promyelocytes, myelocytes and metamyelocytes) > 1% indicates that a LEFT SHIFT is Present. MCH (RBC) [Entitic mass] 29.7 pg 27.0-32.0 [facility] Work Phone: Nucleated RBC/100 WBC (Bld) [Ratio] 0 % 0-5 [facility] Work Phone: MCHC Auto (RBC) [Mass/Vol]on 01-30-2022 MCHC (RBC) [Mass/Vol] 31.5 g/dL 32-36 [facility] Work Phone: No Panel Informationon 01-30 Estimated Creatinine Clearance Calc 102.15 ml/min [facility] Work Phone: Estimated GFR (MDRD) Amer 95 mL/min >60 [facility] Work Phone: Comment on above: GFR Calc Estimated GFR (MDRD) Non-Af Amer 79 mL/min >60 [facility] Work Phone: Comment on above: Non- GFR Calc Platelets bldon 01-30-2022 Platelets (Bld) [#/Vol] 345 10*3/uL 150-450 [facility] Work Phone: Serum or plasma calcium mauro urement (mass/volume)on 01-30-2022 Calcium [Mass/Vol] 9.2 mg/dL 8.5-10.1 [facility] Work Phone: Serum or plasma creatinine m easurement (mass/volume)on 01-30-2022 Creatinine [Mass/Vol] 1.15 mg/dL 0.70-1.30 [facility] Work Phone: Comment on above: The validity of the calculated GFR & GFRAA in patients over 70 years has not been determined. Clinical correlation is essential. Serum or plasma urea nitroge n measurement (mass/volume)on 01-30-2022 Urea nitrogen [Mass/Vol] 8 mg/dL 7-18 [facility] Work Phone: [phone] Thin prep Papanicolaou smear with manual screeningon 01-30-2022 Thin prep Papanicolaou smear with manual screening 11 5-15 [facility] Work Phone: [phone] Absolute lymphocyte counton 12-31-2021 Lymphocytes Auto (Unsp spec) [#/Vol] 2.55 10*3/uL 0.83-4.51 [facility] Work Phone: [phone] Basophil percentageon 2021 Basophils/100 WBC (Bld) 0.1 % 0-1 [facility] Work Phone: [phone] Bilirubin [Mass/Vol] 0.90 mg/dL 0.20-1.00 [facility] Work Phone: [phone] Comment on above: For patients on eltr ombopag therapy, use of Dimension [place] TBIL is not recommended. Chloride [Moles/Vol] 100 mmol/L 98-107 [facility] Work Phone: Eosinophils/100 WBC (Bld) 0.0 % 0-5 [facility] Work Phone: [phone] Glucose [Mass/Vol] 137 mg/dL 74-106 [facility] Work Phone: [phone] Comment on above: Fasting Glucose resu lt greater than or equal to 126 mg/dL suggests DIABETES MELLITUS per A.D.A. criteria. Neutrophils (Bld) [#/Vol] 15.3 10*3/uL 2.0-7.7 [facility] Work Phone: [phone] Neutrophils/100 WBC (Bld) 77.9 % 47-70 [facility] Work Phone: [phone] Potassium [Moles/Vol] 3.1 mmol/L 3.5-5.1 [facility] Work Phone: [phone] Protein [Mass/Vol] 7.2 g/dL 6.4-8.2 [facility] Work Phone: [phone] Sodium [Moles/Vol] 139 mmol/L 136-145 [facility] Work Phone: WBC (Bld) [#/Vol] 19.7 10*3/uL 4.4-11.0 [facility] Work Phone: Blood erythrocytes count (nu mber/volume)on 12-31-2021 RBC (Bld) [#/Vol] 4.94 10*6/uL 4.6-6.2 [facility] Work Phone: Blood hemoglobin measurement (mass/volume)on 12-31-2021 Hemoglobin (Bld) [Mass/Vol] 14.9 g/dL 13.0-16. 5 [facility] Work Phone: Blood lymphocytes/100 leukoc yteson 12-31-2021 Lymphocytes/100 WBC (Bld) 13.0 % 19-41 [facility] Work Phone: Blood manual differential co mment interpretation (narrative result)on 12-31-2021 Manual differential comment Bebeto (Bld) [Interp] SCANNED [facility] Work Phone: Blood monocytes/100 leukocyt eson 12-31-2021 Monocytes/100 WBC (Bld) 8.6 % 0-10 [facility] Work Phone: [phone] Blood platelet adequacy dete ction by light microscopyon 12-31-2021 Platelets LM Ql (Bld) ADEQUATE ADEQ [facility] Work Phone: Blood platelet mean volumeon 12-31-2021 Platelet mean volume (Bld) [Entitic vol] 9.4 fL 6.2-12.0 [facility] Work Phone: [phone] Determination of erythrocyte mean corpuscular volume (MCV)on 12-31-2021 MCV (RBC) [Entitic vol] 90.1 fL 80-94 [facility] Work Phone: [phone] Hematocrit Auto (Bld) [Volum e fraction]on 12-31-2021 Hematocrit (Bld) [Volume fraction] 44.5 % 40-54 [facility] Work Phone: [phone] Laboratory - Chemistry and C hemistry - challengeon 12-31-2021 ALP [Catalytic activity/Vol] 103 U/L 45-117 [facility] Work Phone: [phone] ALT [Catalytic activity/Vol] 21 U/L 16-61 [facility] Work Phone: [phone] CO2 [Moles/Vol] 30.0 mmol/L 21.0-32.0 [facility] Work Phone: [phone] Globulin (S) [Mass/Vol] 3.1 g/dL 2.2-4.2 [facility] Work Phone: [phone] Urea nitrogen/Creatinine [Mass ratio] 7.6 mg/mg 10-20 [facility] Work Phone: [phone] Laboratory - Hematology and Cell countson 12-31-2021 Erythrocyte distribution width (RBC) [Entitic vol] 40.7 fL 35.1-43.9 [facility] Work Phone: Erythrocyte distribution width (RBC) [Ratio] 12.4 % 11.6-14.6 [facility] Work Phone: [phone] Immature granulocytes/100 WBC (Bld) 0.400 % 0.0-0.9 [facility] Work Phone: Comment on above: IG% - Immature Granu locytes (promyelocytes, myelocytes and metamyelocytes) > 1% indicates that a LEFT SHIFT is Present. MCH (RBC) [Entitic mass] 30.2 pg 27.0-32.0 [facility] Work Phone: [phone] Nucleated RBC/100 WBC (Bld) [Ratio] 0 % 0-5 [facility] Work Phone: [phone] MCHC Auto (RBC) [Mass/Vol]on 12-31-2021 MCHC (RBC) [Mass/Vol] 33.5 g/dL 32-36 [facility] Work Phone: [phone] No Panel Informationon 12-31 Estimated Creatinine Clearance Calc 89.68 ml/min [facility] Work Phone: Estimated GFR (MDRD) Amer 82 mL/min >60 [facility] Work Phone: Comment on above: GFR Calc Estimated GFR (MDRD) Non-Af Amer 68 mL/min >60 [facility] Work Phone: Comment on above: Non- GFR Calc Platelets bldon 12-31-2021 Platelets (Bld) [#/Vol] 374 10*3/uL 150-450 [facility] Work Phone: Review by pathologiston 12-04 Pathologist review Bebeto (Unsp spec) [Interp] December yuliana [facility] Work Phone: Pathologist review Bebeto (Unsp spec) [Interp] Reviewed [facility] Work Phone: Comment on above: Previous reported re sult: Lu bridges Edited by: RGOOD on 01/01/22:1152Neutrophilic leukocytosis.Clinical correlation suggested.Sb Varma D.O. 01/01/22 AMENDED REPORT 01/01/22 1152 PATH REV previously reported as: December yuliana Serum or plasma albumin mauro urement (mass/volume)on 12-31-2021 Albumin [Mass/Vol] 4.1 g/dL 3.2-5.0 [facility] Work Phone: Serum or plasma albumin/glob ulin mass ratioon 12-31-2021 Albumin/Globulin [Mass ratio] 1.3 {ratio} 0.9-2.4 [facility] Work Phone: Serum or plasma calcium mauro urement (mass/volume)on 12-31-2021 Calcium [Mass/Vol] 8.8 mg/dL 8.5-10.1 [facility] Work Phone: Serum or plasma creatinine m easurement (mass/volume)on 12-31-2021 Creatinine [Mass/Vol] 1.31 mg/dL 0.70-1.30 [facility] Work Phone: Comment on above: The validity of the calculated GFR & GFRAA in patients over 70 years has not been determined. Clinical correlation is essential. Serum or plasma urea nitroge n measurement (mass/volume)on 12-31-2021 Urea nitrogen [Mass/Vol] 10 mg/dL 7-18 [facility] Work Phone: Thin prep Papanicolaou smear with manual screeningon 12-31-2021 Thin prep Papanicolaou smear with manual screening 12 U/L 15-37 [facility] Work Phone: Thin prep Papanicolaou smear with manual screening 9 5-15 [facility] Work Phone: No Panel Informationon 12-27 Enteric Bacteriology [facility] Work Phone: Gram stain for investigation of transfusion reactionon 12-17-2021 Microscopic observation Gram stain Nom (Unsp spec) [facility] Work Phone: No Panel Informationon 12-17 Nasopharyngeal Culture Pseudomonas aeroginosa [facility] Work Phone: TSCon 06-04-2018 [facility] [place]ICE: 06/04/2018Patient is a 27-year-old [...] afebrile, and appropriate for outpatientmanagement._ Abraham Aguilar, [facility]/[id number]: 06/04/2018 10:57 [facility] PATIENT NAME: AIMEE DUCKWORTH [id number] Radha Trinh [facility] REC #: [id number], [place] [address] STATCARE REPORT STATCARE PHYSICIANDT: 06/05/2018 09:29SSI File#: [id number] #: [id number]/[id number] d by06/05/18 1018 ANGEL [facility] PATIENT NAME: AIMEE DUCKWORTH [id number] Radha Trinh MEDICAL REC #: [id number], [place] [address] STATCARE REPORT STATCARE PHYSICIAN [facility] DEYVIHÉCTORPRISCILLA STATCARE REPORT [facility] [place] 07-17-2017 GI -- ----Patient: AIMEE DUCKWORTH ----SPECIMEN: [id number] Collection Date: 07/17/17-1011 Received: 07/22/17 Status: ERIC Nesbitt Dr.: Ashtyn Moreira MD Ph# Othr. : Hailey Jarquin NP Material for Examination: A ESOPHAGEAL BX @ 39 CM, R/O PONCE'S PRE-OP DIAGNOSIS: ULCER OF ESOPHAGUS POST-OP DIAGNOSIS: NONE GIVEN SURGICAL PROCEDURE: NONE GIVEN SPECIMEN COMMENTS: RECEIVED FROM [facility], [address] [place] [address] 2 Jan SLIDES LABELED [id number] DONITAAIMEE [id number],[id number] A. Esophagus, at 39 cm; multiple biopsies: [...] Phonetic and/or minor grammatical errors may exist. [facility] NAME: AIMEE DUCKWORTH Pathology and Laboratory Medicine UNIT#: [id number] LOC: [facility] Sorority Mother: Rula Ryan M.D. ROOM/BED: [employer] [facility] : 89 AGE/SEX: 26/M ORD.Ashtyn Mitchell MD END OF REPORT Normal [facility] [place] Gram stain for investigation of transfusion reaction Microscopic observation Gram stain Nom (Unsp spec) [facility] Work Phone: No Panel Information Nasopharyngeal Culture Pseudomonas aeroginosa [facility] Work Phone: Vital Signs Date Time Vital Sign Value Performing Clinician Faci kany 04-22-2025 11:54-0400 Body temperature 98.1 [degF] Dr. Kamron Erickson MD Work Phone: [facility] 04-22-2025 11:54-0400 Diastolic blood pressure 94 mm[Hg] Dr. Kamron Erickson MD Work Phone: [facility] 04-22-2025 11:54-0400 Heart rate 68 /min Dr. Kamron Erickson MD Work Phone: [facility] 04-22-2025 11:54-0400 Respiratory rate 16 /min Dr. Kamron Erickson MD Work Phone: [facility] 04-22-2025 11:54-0400 SaO2% (BldA) [Mass fraction] 97 % Dr. Kamron Erickson MD Work Phone: 7(020)931-396948 [place] [address] 04-22-2025 11:54-0400 Systolic blood pressure 152 mm[Hg] Dr. Kamron Erickson MD Work Phone: 4(397)686-338866 [place] [address] 04-22-2025 07:38-0400 Body height 182.[address] Kamron Erickson MD Work Phone: 3(885)009-784666 [place] [address] 04-22-2025 07:38-0400 Body mass index (BMI) [Ratio] 35.2 kg/m2 Dr. Kamron Erickson MD Work Phone: 1(892)527-227066 [place] [address] 04-22-2025 07:38-0400 Body weight [address] Kamron Erickson MD Work Phone: 0(664)568-442966 [place] [address] 04-21-2025 03:26-0400 Body temperature 99 [degF] Dr. Kamron Erickson MD Work Phone: 1(242)073-105166 [place] [address] 04-21-2025 03:26-0400 Diastolic blood pressure 97 mm[Hg] Dr. Kamron Erickson MD Work Phone: 5(311)644-275366 [place] [address] 04-21-2025 03:26-0400 Heart rate 102 /min Dr. Kamron Erickson MD Work Phone: 8(332)620-733666 [place] [address] 04-21-2025 03:26-0400 Respiratory rate 16 /min Dr. Kamron Erickson MD Work Phone: 6(275)542-037366 [place] [address] 04-21-2025 03:26-0400 SaO2% (BldA) [Mass fraction] 97 % Dr. Kamron Erickson MD Work Phone: 1(257)983-227666 [place] [address] 04-21-2025 03:26-0400 Systolic blood pressure 145 mm[Hg] Dr. Kamron Erickson MD Work Phone: 8(424)044-701966 [place] [address] 04-21-2025 02:04-0400 Body height 182.[address] Kamron Erickson MD Work Phone: 8(048)033-550466 [place] [address] 04-21-2025 02:04-0400 Body mass index (BMI) [Ratio] 35.6 kg/m2 Dr. Kamron Erickson MD Work Phone: 6(756)574-530766 [place] [address] 04-21-2025 02:04-0400 Body weight 119.[address] Kamron Erickson MD Work Phone: 2(728)714-183866 [place] [address] 11-03-2024 23:54-0400 Heart rate 68 /min Dr. Kamron Erickson MD Work Phone: 7(233)150-294766 [place] [address] 11-03-2024 23:54-0400 Respiratory rate 18 /min Dr. Kamron Erickson MD Work Phone: 7(959)135-294566 [place] [address] 11-03-2024 23:54-0400 SaO2% (BldA) [Mass fraction] 94 % Dr. Kamron Erickson MD Work Phone: 4(064)789-898066 [place] [address] 11-03-2024 21:30-0400 Body temperature 97.7 [degF] Dr. Kamron Erickson MD Work Phone: 8(051)945-310166 [place] [address] 11-03-2024 21:30-0400 Diastolic blood pressure 91 mm[Hg] Dr. Kamron Erickson MD Work Phone: 0(466)469-546066 [place] [address] 11-03-2024 21:30-0400 Systolic blood pressure 109 mm[Hg] Dr. Kamron Erickson MD Work Phone: 8(362)879-391066 [place] [address] 11-03-2024 09:24-0400 Body height 182.[address] Kamron Erickson MD Work Phone: 6(470)043-577166 [place] [address] 11-03-2024 09:24-0400 Body weight 131.[address] Kamron Erickson MD Work Phone: 5(598)777-940866 [place] [address] 11-03-2024 07:00-0400 Inhaled oxygen flow rate 2 L/min Dr. Kamron Erickson MD Work Phone: 0(121)030-880866 [place] [address] 11-03-2024 06:00-0400 Body mass index (BMI) [Ratio] 39.1 kg/m2 Dr. Kamron Erickson MD Work Phone: 1(260)439-084866 [place] [address] 11-02-2024 13:38-0400 Body temperature 97.7 [degF] Dr. Kamron Erickson MD Work Phone: 5(133)530-671766 [place] [address] 11-02-2024 13:38-0400 Diastolic blood pressure 78 mm[Hg] Dr. Kamron Erickson MD Work Phone: [facility] 11-02-2024 13:38-0400 Heart rate 87 /min Dr. Kamron Erickson MD Work Phone: 0(838)422-408248 [place] [address] 11-02-2024 13:38-0400 Respiratory rate 16 /min Dr. Kamron Erickson MD Work Phone: 7(505)051-522048 [place] [address] 11-02-2024 13:38-0400 SaO2% (BldA) [Mass fraction] 98 % Dr. Kamron Erickson MD Work Phone: 4(659)089-277266 [place] [address] 11-02-2024 13:38-0400 Systolic blood pressure 107 mm[Hg] Dr. Kamron Erickson MD Work Phone: 2(985)508-069666 [place] [address] 11-02-2024 11:24-0400 Body height 182.[address] Kamron Erickson MD Work Phone: 5(827)854-840566 [place] [address] 11-02-2024 11:24-0400 Body mass index (BMI) [Ratio] 39.2 kg/m2 Dr. Kamron Erickson MD Work Phone: 2(985)962-247466 [place] [address] 11-02-2024 11:24-0400 Body weight [address] Kamron Erickson MD Work Phone: 5(149)378-744366 [place] [address] 08-04-2024 08:51-0500 Body temperature 97.9 [degF] Dr. Kamron Erickson MD Work Phone: 4(483)933-321048 [place] [address] 08-04-2024 08:51-0500 Diastolic blood pressure 81 mm[Hg] Dr. Kamron Erickson MD Work Phone: 0(737)299-548016 [address] 08-04-2024 08:51-0500 Heart rate 74 /min Dr. Kamron Erickson MD Work Phone: 4(502)728-645548 [place] [address] 08-04-2024 08:51-0500 Respiratory rate 16 /min Dr. Kamron Erickson MD Work Phone: 9(390)173-495948 [place] [address] 08-04-2024 08:51-0500 SaO2% (BldA) [Mass fraction] 97 % Dr. Kamron Erickson MD Work Phone: [facility] 08-04-2024 08:51-0500 Systolic blood pressure 124 mm[Hg] Dr. Kamron Erickson MD Work Phone: [facility] 08-03-2024 12:44-0500 Body mass index (BMI) [Ratio] 34.2 kg/m2 Dr. Kamron Erickson MD Work Phone: [facility] 08-03-2024 12:44-0500 Body weight 114.[address] Kamron Erickson MD Work Phone: [facility] 04-13-2023 07:01-0400 Diastolic blood pressure 59 mm[Hg] [facility] 04-13-2023 07:01-0400 Heart rate 66 /min [facility] 04-13-2023 07:01-0400 Respiratory rate 15 /min [facility] 04-13-2023 07:01-0400 SaO2% (BldA) [Mass fraction] 100 % [facility] 04-13-2023 07:01-0400 Systolic blood pressure 104 mm[Hg] [facility] 04-13-2023 04:07-0400 Body height 182.88 cm [facility] 04-13-2023 04:07-0400 Body mass index (BMI) [Ratio] 36.1 kg/m2 [facility] 04-13-2023 04:07-0400 Body temperature 97.6 [degF] [facility] 04-13-2023 04:07-0400 Body weight 121 kg [facility] 05-30-2022 08:38-0400 Diastolic blood pressure 81 mm[Hg] [facility] Work Phone: 05-30-2022 08:38-0400 Heart rate 90 /min [facility] Work Phone: 05-30-2022 08:38-0400 Respiratory rate 15 /min [facility] Work Phone: 05-30-2022 08:38-0400 SaO2% (BldA) [Mass fraction] 100 % [facility] Work Phone: 05-30-2022 08:38-0400 Systolic blood pressure 138 mm[Hg] [facility] Work Phone: 05-30-2022 06:18-0400 Body temperature 97.9 [degF] [facility] Work Phone: 05-29-2022 20:56-0400 Body height 182.88 cm [facility] Work Phone: 05-29-2022 20:56-0400 Body mass index (BMI) [Ratio] 33 kg/m2 [facility] Work Phone: 05-29-2022 20:56-0400 Body weight 110.6 kg [facility] Work Phone: 01-30-2022 14:47-0400 Body height 182.88 cm [facility] Work Phone: 01-30-2022 14:47-0400 Body mass index (BMI) [Ratio] 32.4 kg/m2 [facility] Work Phone: 01-30-2022 14:47-0400 Body temperature 97 [degF] [facility] Work Phone: 01-30-2022 14:47-0400 Body weight 108.47 kg [facility] Work Phone: 01-30-2022 14:47-0400 Diastolic blood pressure 102 mm[Hg] [facility] Work Phone: 01-30-2022 14:47-0400 Heart rate 124 /min [facility] Work Phone: 01-30-2022 14:47-0400 Respiratory rate 16 /min [facility] Work Phone: 01-30-2022 14:47-0400 SaO2% (BldA) [Mass fraction] 98 % [facility] Work Phone: 01-30-2022 14:47-0400 Systolic blood pressure 130 mm[Hg] [facility] Work Phone: 12-31-2021 04:11-0400 Diastolic blood pressure 90 mm[Hg] [facility] Work Phone: 12-31-2021 04:11-0400 Heart rate 82 /min [facility] Work Phone: 12-31-2021 04:11-0400 Respiratory rate 20 /min [facility] Work Phone: 12-31-2021 04:11-0400 SaO2% (BldA) [Mass fraction] 94 % [facility] Work Phone: 12-31-2021 04:11-0400 Systolic blood pressure 137 mm[Hg] [facility] Work Phone: 12-31-2021 01:56-0400 Body height 182.88 cm [facility] Work Phone: 12-31-2021 01:56-0400 Body mass index (BMI) [Ratio] 34 kg/m2 [facility] Work Phone: 12-31-2021 01:56-0400 Body temperature 98.9 [degF] [facility] Work Phone: 12-31-2021 01:56-0400 Body weight 113.7 kg [facility] Work Phone: Encounters Encounter Date Encounter Type Care Provider Facility Start: 04-22-2025 End: 04-22-2025 Emergency department patient visit [facility] Facility:[facility] Start: 04-21-2025 End: 04-21-2025 Emergency department patient visit Dr. Kamron Erickson MD Work Phone: -Emergency Department Work Phone: Start: 11-03-2024 Non-patient / Non-visit Dr. Román martinez MD -[facility] Work Phone: Start: 11-02-2024 Non-patient / Non-visit Dr. Román martinez MD -[facility] Work Phone: Start: 11-02-2024 ambulatory Kamron Erickson Facility:[facility] Start: 11-02-2024 End: 11-04-2024 Evaluation and management of inpatient Dr. Román Sandoval MD -Intensive Care Unit Work Phone: Start: 08-03-2024 End: 08-04-2024 Emergency department patient visit Dr. Rodriguez Beavers DO -Emergency Department Work Phone: Start: 06-02-2024 End: 06-02-2024 Emergency department patient visit Kamron Benton Facility:[facility] Start: 05-06-2023 End: 05-07-2023 Emergency department patient visit VIDALAshwini BAE[facility] Start: 04-13-2023 End: 04-13-2023 Emergency department patient visit [facility]-Emergency Department Work Phone: Start: 05-29-2022 End: 05-30-2022 Emergency department patient visit [facility]-Emergency Department Start: 01-30-2022 End: 01-30-2022 Emergency department patient visit [facility]-Emergency Department Start: 12-31-2021 End: 12-31-2021 Emergency department patient visit [facility]-Emergency Department Start: 12-27-2021 End: 12-27-2021 Patient encounter procedure [facility]-Laboratory, Specimen Start: 12-17-2021 End: 12-17-2021 Patient encounter procedure [facility]-Labor[facility], [place] [facility] Start: 06-04-2018 Patient encounter procedure Abraham Aguilar Facility:[facility] Start: 07-17-2017 Patient encounter procedure Ashtyn Moreira Facility:[facility] Procedures Date Procedure Procedure Detail Performing Clinician [...] Date Care Activity Detail Author Start: 04-22-2025 [facility] Start: 04-21-2025 [facility] Start: 11-03-2024 Care planning and problem solving actions [facility] Start: 11-03-2024 Electrocardiographic procedure [facility] Start: 11-03-2024 Serum inorganic phosphate measurement [facility] Start: 11-03-2024 Patient discharge [facility] Start: 11-02-2024 Suicide precautions [facility] Start: 11-02-2024 Following clinical pathway protocol [facility] Start: 11-02-2024 Ambulation without limitation [facility] Start: 11-02-2024 Assessment of risk of venous thromboembolism [facility] Start: 11-02-2024 Continuous pulse oximetry [facility] Start: 11-02-2024 Inhalation therapy procedure [facility] Start: 11-02-2024 Insertion of catheter into peripheral vein [facility] Start: 11-02-2024 Measuring intake and output [facility] Start: 11-02-2024 Oxygen therapy [facility] Start: 11-02-2024 Providing care according to standard [facility] Start: 11-02-2024 Vital signs measurements [facility] Start: 11-02-2024 [facility] Start: 11-02-2024 Verification routine [facility] Start: 11-02-2024 Admission procedure [facility] Start: 11-02-2024 Seizure precautions [facility] Start: 11-02-2024 Referral to service [facility] Start: 11-02-2024 End: 11-02-2024 Suicide precautions [facility] Start: 11-02-2024 Consultation [facility] Start: 08-03-2024 [facility] Start: 08-03-2024 Suicide precautions [facility] Start: 01-30-2022 Plain chest X-ray Chest 1 View (Portable) [facility] Work Phone: Start: 01-30-2022 XR Chest Single view [facility] Work Phone: Start: 01-30-2022 End: 01-30-2022 [facility] Work Phone: Start: 12-27-2021 Ova and Parasites Ova and Parasites [facility] Work Phone: Start: 12-17-2021 Nasopharyngeal Culture Nasopharyngeal Culture [facility] Work Phone: Alanine aminotransfe rase [Enzymatic activity/volume] in Serum or Plasma [facility] Albumin [Mass/volume ] in Serum or Plasma [facility] Alkaline phosphatase [Enzymatic activity/volume] in Serum or Plasma [facility] Amphetamines [Presen ce] in Urine by Screen method >1000 ng/mL [facility] Anion gap in Serum or Plasma [facility] Benzodiazepine measu rement, urine [facility] Bilirubin, total measurement [facility] BUN/Creatinine ratio [facility] Calcium [Mass/volume ] in Serum or Plasma [facility] Carbon dioxide, tota l [Moles/volume] in Central venous blood [facility] Cocaine measurement, urine [facility] Creatinine [Mass/vol ume] in Serum or Plasma [facility] Erythrocyte mean cor puscular volume determination [facility] fentaNYL [Presence] in Urine by Screen method [facility] Glucose [Mass/volume ] in Serum or Plasma [facility] Hematocrit [Volume F raction] of Blood [facility] Hemoglobin [Mass/vol ume] in Blood [facility] Leukocytes [#/volume] in Blood [facility] Magnesium measurement [facility] Mean corpuscular hem oglobin concentration determination [facility] Mean corpuscular hem oglobin determination [facility] Measurement of renal function [facility] Methadone measurement, urine [facility] Neutrophil count [facility] Neutrophil percent differential count [facility] Patient Education [facility] Work Phone: Patient referral [facility] Work Phone: Phencyclidine [Prese nce] in Urine [facility] Platelets [#/volume] in Blood [facility] Potassium measurement [facility] Red blood cell count [facility] Red cell distributio n width determination [facility] Serum chloride measurement [facility] Sodium measurement [facility] Total protein measurement [facility] Urea nitrogen [Mass/ volume] in Serum or Plasma [facility] Urine cannabinoid measurement [facility] Urine opiate measurement [facility] Payers Date Payer Category Payer Self-pay [id number] 2020 Medicaid [id number] 2020 Medicare [id number] 2016 Unknown [id number] 2007 Unknown [id number] 1990 Unknown [id number]. [id number] Unknown [id number] 2.16.8 [id number] Unknown [id number] 2.16.8 [id number] Unknown [id number] 2.16.8 [id number] Unknown [id number] 2.16.8 [id number] Unknown [id number] 2.16.8 [id number] Unknown [id number] 2.16.8 [id number] Unknown [id number] 2.16.8 [id number] Unknown [id number] 2.16.8 [id number] Unknown [id number] 2.16.8 [id number] Unknown [id number] 2.16.8 [id number] Social History Date Type Detail Facility Start: 12-04-2018 End: 04-13-2023 Tobacco smoking status ORIS Unknown if ever smoked [facility] Start: 1990 Sex Assigned At Male [facility] Start: 11-02-2024 End: 04-22-2025 Tobacco smoking status NHIS Smokes tobacco daily (finding) [facility] Start: 11-02-2024 End: 11-04-2024 Sex Male (finding) [facility] Sex Male [facility] Goals Date Patient Goal Desired Activity /State Functional Status Date Assessment Result Facility 11-03-2024 Functional status Ambulates;Bedside Commo de [facility] Work Phone: Mental Status Date Assessment Result Facility 11-03-2024 Cognitive function Voice/Name [facility] Work Phone: Clinical Notes 04-13-2023 to 04-22-2025 Note Date & Type Note Facility 04-22-2025 Discharge summary [facility] 04-21-2025 Discharge summary [facility] 04-21-2025 Radiology Diagnostic study note [facility] Imaging Services [address] [place], [place] [address] Abdomen/Pelvis W IV Cont ONLY MR#: [id number] Acct: [id number] Name: AIMEE DUCKWORTH Rep #: [id number] : 1990 M 34 From: Blessing Weir MD PCP: Dr. Kamron Erickson MD Status: REG ER Study:Abdomen/Pelvis W IV Cont ONLY Date of E xam: 04/21/25 Exam# [id number] Ordering Dr: Violet York DO PROCEDURE: ABDOMEN/PELVIS [...] Mild diffuse spondylosis. Reading Location: [place] [address] CC: Dr. Kamron Erickson MD; Diomedes York DO ~ Sericulturist: Signed [facility] 04-21-2025 Hospital Discharge instructions Additional Instructions Your [...] ER should you have any further concerns [facility] Work Phone: 11-04-2024 Note [facility] Medical Records Department [address] [place] [address] Discharge Summary 11/04/24 0829 MR#: [id number] Acct: [id number] Name: AIMEE DUCKWORTH Rep #: [id number] : 1990 34 From: Román Sandoval MD PCP: Dr. Kamron Erickson MD Status:DIS IN Location: [facility] [id number] Providers Date of Admission: 11/02/24 Date of [...] 234 mg IM (more content not included)... [facility] 11-03-2024 Progress note Note Date/Time November 03, 2024 8:00am [facility] Medical Records Department [address] [place] [address] Progress Note - Hospitalist 11/03/24 0715 MR#: [id number] Acct: [id number] Name: AIMEE DUCKWORTH Rep #:[id number] : [...] % (Auto) 54.1, Lymph % (Auto) 24.9, [place] % (Auto) 18.0 H, Eos % (Auto) [...] % (Auto) 63.5, Lymph % (Auto) 19.2, [place] % (Auto) 16.0 H, Eos % (Auto) [...] Minutes A Charges/Coding Visit Charges Inpatient E&M: 30715 Subs Hosp L2 11/03/24 0800 <Electronically signed by Román Sandoval MD> Cosigner Signature (if applicable): CC: ~ Signed [facility] Work Phone: 1(301) 144-870604-02-2025 Progress note [facility] Medical Records Department [address] [place] [address] Progress Note - Hospitalist 11/03/24714 MR#: [id number] Acct: [id number] Name: AIMEE DUCKWORTH Rep #:[id number] : [...] % (Auto) 54.1, Lymph % (Auto) 24.9, [place] % (Auto) 18.0 H, Eos % (Auto) [...] % (Auto) 63.5, Lymph % (Auto) 19.2, [place] % (Auto) 16.0 H, Eos % (Auto) [...] Minutes A Charges/Coding Visit Charges Inpatient E&M: 27792 Subs Hosp L2 11/03/24 0800 Cosigner Signature (if applicable): CC: ~ Signed [facility]04-01-2025 History and physical note Author Román Sandoval [facility] Note Date/Time November 02, 2024 1:11 pm [facility] Medical Records Department [address] [place] [address] H&P Exam - Hospitalist 11/02/24 1306 MR#: [id number] Acct: [id number] Name: AIMEE DUCKWORTH Rep #:[id number] : [...] % (Auto) 54.1, Lymph % (Auto) 24.9, [place]% (Auto) 18.0 H, Eos % (Auto) 2.1, [...] Multi Select Codes Visit Charges Visit Charges: 31144 [facility] Hospitalists' Procedures Procedures: 12923 Advncd Care Plan 30 Min 11/02/24 1311 <Electronically signed by Román Sandoval MD> Cosigner Signature (if applicable): CC: Dr. Román Sandoval MD; Dr. Kamron Erickson MD~ Signed [facility] Work Phone: 1(151) 283-467904-01-2025 Discharge summary Author Tramaine Tovar [facility] Note Date/Time November 02, 2024 12:5 7pm [facility] Medical Records Department [address] [place] [address] Emergency Department Summary 11/02/24 MR#: [id number] Acct: [id number] Name: AIMEE DUCKWORTH Rep #:[id number] : 1990 34 From: Tramaine Tovar MD PCP: Dr. Kamron Erickson MD Status:REG ER Location: ED HPI History of Present Illness Chief Complaint: Overdose Detail of Chief Complaint: Suicide attempt, took 6450 mg trazodone tablets 30 to45 minutes DIRECTOR OF GIFT PLANNING Informant: patient Onset/Context/Timing Onset: Hours Context: Sudden [...] his life. [facility] Patient has been hospitalized for suicidal [...] % (Auto) 54.1 Lymph % (Auto) 24.9 [place] % (Auto) 18.0 H Eos % (Auto) [...] which may be due to the trazodone. SD interval is under 58 ms. Cures duration 110 ms. QT duration 458 ms. [place] is normal.) Management Discussion w/another healthcare provider: Hospitalist (Hospitalist was paged at 1252 for admission. Case was discussed with Dr. Serrato who accepted patient. Full admit ICU) Critical Care Time Critical Care Time: Yes Critical care time (excluding procedures): 30-74 minutes (33), Including time spent: (History, physical, documentation, independent rotation laboratory results and EKG), Discussing w/Patient &/or Family/Concert Pianist, Discussing w/Consultants and Arranging Admission or Transfer Discharge Plan Dx/Rx/DC Orders Clinical Impression: Intentional overdose, Prolonged QT interval, Intentional overdose of trazodone,Somnolence, Depression, major Disposition Disposition: [facility] What to do if you have Problems For any increased pain, shortness of breath, bleeding, nausea or vomiting, chestpain, or any unexpected problems, contact your Primary Care Provider. Call [facility] ([phone]) or report to the closest Emergency Room. Call 911 if necessary. 11/02/24 1257 <Electronically signed by Tramaine Tovar MD> Cosigner Signature (if applicable): CC: Dr. Kamron Erickson MD ~ Signed [facility] Work Phone: 1(541) 157-284104-01-2025 Evaluation note* Diagnosis Onset Date Resolution Status Admit Date Intentional overdose of trazodone acute November 02, 2024 12:55pm Prolonged QT interval acute Nov 12:55pm [facility] Work Phone: 1(344) 334-423504-01-2025 History and physical note [facility] Medical Records Department [address] [place] [address] H&P Exam - Hospitalist 11/02/24 1306 MR#: [id number] Acct: [id number] Name: AIMEE DUCKWORTH Rep #:[id number] : [...] % (Auto) 54.1, Lymph % (Auto) 24.9, [place]% (Auto) 18.0 H, Eos % (Auto) 2.1, [...] Multi Select Codes Visit Charges Visit Charges: 47617 Init [facility] L3 Hospitalists' Procedures Procedures: 53281 Advncd Care Plan 30 Min 11/02/24 1311 Cosigner Signature (if applicable): CC: Dr. Román Sandoval MD; Dr. Kamron Erickson MD~ Signed [facility]04-01-2025 Discharge summary [facility] Medical Records Department [address] [place] [address] Emergency Department Summary 11/02/24 MR#: [id number] Acct: [id number] Name: AIMEE DUCKWORTH Rep #:[id number] : 1990 34 From: Tramaine Tovar MD PCP: Dr. Kamron Erickson MD Status:REG ER Location: ED HPI History of Present Illness Chief Complaint: Overdose Detail of Chief Complaint: Suicide attempt, took 6450 mg trazodone tablets 30 to45 minutes DIRECTOR OF GIFT PLANNING Informant: patient Onset/Context/Timing Onset: Hours Context: Sudden [...] his life. [facility]. Patient has been hospitalized forsuicidal ideation/attempt. [...] % (Auto) 54.1 Lymph % (Auto) 24.9 [place] % (Auto) 18.0 H Eos % (Auto) [...] which may be due to the trazodone. SD interval is under 58 ms. Cures duration 110 ms. QT duration 458 ms. [place] is normal.) Management Discussion w/another healthcare provider: Hospitalist (Hospitalist was paged at 1252 for admission.Case was discussed with Dr. Serrato who accepted patient. Full admit ICU) Critical Care Time Critical Care Time: Yes Critical care time (excluding procedures): 30-74 minutes (33), Including time spent: (History, physical, documentation, independent rotation laboratory results and EKG), Discussing w/Patient &/orFamily/Concert Pianist, Discussing w/Consultants and Arranging Admission or Transfer Discharge Plan Dx/Rx/DC Orders Clinical Impression: Intentional overdose, Prolonged QT interval, Intentional overdose of trazodone,Somnolence, Depression, major Disposition Disposition: [facility] What to do if you have Problems For any increased pain, shortness of breath, bleeding, nausea or vomiting, chestpain, or any unexpected problems, contact your Primary Care Provider. Call [facility] ([phone]) or report tothe closest Emergency Room. Call 911 if necessary. 11/02/24 1257 Cosigner Signature (if applicable): CC: Dr. Kamron Erickson MD ~ Signed [facility]09-10-2023 Discharge summary Author Gustavo Garcia [facility] April 13, 2023 7:22am Note Date/Time April 13, 2023 4:18am [facility] Medical Records Department [address] [place] [address] Emergency Department Summary 04/13/23 MR#: [id number] Acct: [id number] Name: AIMEE DUCKWORTH Rep #:[id number] : [...] episode. He is on any blood thinners. [facility] Medical History Asthma Migraines Home Medications [...] 82.3 H Lymph % (Auto) 11.2 L [place] % (Auto) 4.5 Eos % (Auto) 1.3 [...] State: [facility] / [place] , Service support , Discharge Plan Triage [...] your Primary Care Provider. Call [facility] ([phone]) or report to the closest Emergency Room. Call 911 if necessary. 04/13/23721 <Electronically signed by Gustavo Garcia DO> Cosigner Signature (if applicable): CC: Dr. Kamron Erickson MD ~ Signed [facility] Work Phone: Discharge summary Author Tramaine Tovar [facility] Note Date/Time November 02, 2024 12:5 7pm [facility] Medical Records Department [address] [place] [address] Emergency Department Summary 11/02/24 MR#: [id number] Acct: [id number] Name: AIMEE DUCKWORTH Rep #:[id number] : 1990 34 From: Tramaine Tovar MD PCP: Dr. Kamron Erickson MD Status:REG ER Location: ED HPI History of Present Illness Chief Complaint: Overdose Detail of Chief Complaint: Suicide attempt, took 6450 mg trazodone tablets 30 to45 minutes DIRECTOR OF GIFT PLANNING Informant: patient Onset/Context/Timing Onset: Hours Context: Sudden [...] his life. [facility] Patient has been hospitalized for suicidal [...] % (Auto) 54.1 Lymph % (Auto) 24.9 [place] % (Auto) 18.0 H Eos % (Auto) [...] which may be due to the trazodone. SD interval is under 58 ms. Cures duration 110 ms. QT duration 458 ms. [place] is normal.) Management Discussion w/another healthcare provider: Hospitalist (Hospitalist was paged at 1252 for admission. Case was discussed with Dr. Serrato who accepted patient. Full admit ICU) Critical Care Time Critical Care Time: Yes Critical care time (excluding procedures): 30-74 minutes (33), Including time spent: (History, physical, documentation, independent rotation laboratory results and EKG), Discussing w/Patient &/or Family/Concert Pianist, Discussing w/Consultants and Arranging Admission or Transfer Discharge Plan Dx/Rx/DC Orders Clinical Impression: Intentional overdose, Prolonged QT interval, Intentional overdose of trazodone,Somnolence, Depression, major Disposition Disposition: Acute Care [facility] What to do if you have Problems For any increased pain, shortness of breath, bleeding, nausea or vomiting, chestpain, or any unexpected problems, contact your Primary Care Provider. Call [facility] ([phone]) or report to the closest Emergency Room. Call 911 if necessary. 11/02/24 1257 <Electronically signed by Tramaine Tovar MD> Cosigner Signature (if applicable): CC: Dr. Kamron Erickson MD ~ Signed [facility] Work Phone: Discharge summary Author Diomedes York [facility] Note Date/Time April 21, 2025 3:29am [facility] Medical Records Department [address] [place] [address] Emergency Department Summary 04/21/25 MR#: [id number] Acct: [id number] Name: AIMEE DUCKWORTH Rep #:[id number] : [...] secondary to this he presents for evaluation. [facility] Medical History Spinal stenosis Schizophrenia Depression Anxiety [...] 81.1 H Lymph % (Auto) 12.5 L [place] % (Auto) 5.4 Eos % (Auto) 0.2 [...] pneumatosis coli. Mild diffuse spondylosis. Reading [facility] [address] Discharge Plan Triage Chief Complaint: Nausea/Vomiting ED [...] you have any further concerns Print Language: Angolan Disposition Disposition: Home, Self Care What to do if you have Problems For any increased pain, shortness of breath, bleeding, nausea or vomiting, chestpain, or any unexpected problems, contact your Primary Care Provider. Call [facility] ([phone]) or report to the closest Emergency Room. Call 911 if necessary. 04/21/25 0329 <Electronically signed by Diomedes York DO> Cosigner Signature (if applicable): CC: Dr. Kamron Erickson MD ~ Signed [facility] Work Phone: Discharge summary Author Rodriguez Beavers [facility] Note Date/Time April 22, 2025 11:55am [facility] Medical Records Department [address] [place] [address] Emergency Department Summary 04/22/25 MR#: [id number] Acct: [id number] Name: AIMEE DUCKWORTH Rep #:[id number] : [...] History obtained from others: Mother Consults: none [facility] Narrative: The patient was initially hypertensive with [...] Discharge home This note was generated with [employer] dictation software. It may contain incorrectwords, spelling, [...] (Auto) 71.5 H Lymph % (Auto) 19.5 [place] % (Auto) 7.8 Eos % (Auto) 0.3 [...] Clarity Clear Urine pH 6.5 Ur Specific [place] 1.015 Urine Protein 100 H Urine Glucose [...] further outpatient evaluation and management. Print Language: Angolan Disposition Disposition: Home, Self Care Discharge Date/Time: 04/22/25 11:55 What to do if you have Problems For any increased pain, shortness of breath, bleeding, nausea or vomiting, chestpain, or any unexpected problems, contact your Primary Care Provider. Call [facility] ([phone]) or report to the closest Emergency Room. Call 911 if necessary. 04/22/25 1538 <Electronically signed by Rodriguez Beavers DO> Cosigner Signature (if applicable): CC: Dr. Kamron Erickson MD ~ Signed [facility] Work Phone: Evaluation noteNo assessment information available [facility] Work Phone: Evaluation note* Diagnosis Onset Date Resolution Status Admit Date Intentional overdose of trazodone acute November 02, 2024 12:55pm Prolonged QT interval acute Apr 2024 12:55pm [facility] Work Phone: History and physical note Author Román Sandoval [facility] Note Date/Time November 02, 2024 1:11 pm [facility] Medical Records Department [address] [place] [address] H&P Exam - Hospitalist 11/02/24 1306 MR#: [id number] Acct: [id number] Name: AIMEE DUCKWORTH Rep #:[id number] : [...] % (Auto) 54.1, Lymph % (Auto) 24.9, [place]% (Auto) 18.0 H, Eos % (Auto) 2.1, [...] Multi Select Codes Visit Charges Visit Charges: 32434 Init [facility] L[facility] Hospitalists' Procedures Procedures: 41896 Advncd Care Plan 30 Min 11/02/24 1311 <Electronically signed by Román Sandoval MD> Cosigner Signature (if applicable): CC: Dr. Román Sandoval MD; Dr. Kamron Erickson MD~ Signed [facility] Work Phone: Hospital Discharge instructionsAdditional Instructions Thank [...] (Dr. Colbert) for further outpatient evaluation and management.[facility] Work Phone: Reason for referral (narrative)No reason for referral information availableWCleveland Clinic [facility] Work Phone: Summary Purpose Family History No Family History Records FoundNo Family History Records FoundNo Family History Records Found Advance Directives Advance Directive Response Recorded Date/ Time Living Will No December 04, 2018 12 :33pm Power of Business Assistant No December 04, 2018 12:33pm Advance Directive Response Recorded Date/ Time Living Will No December 31, 2021 1 :58am Power of Business Assistant No December 31, 2021 1:58am Advance Directive Response Recorded Date/ Time Living Will No January 30, 2022 3:53pm Power of Business Assistant No January 30 3:53pm Advance Directive Response Recorded Date/ Time Living Will No May 29 9:05pm Power of Business Assistant No May 29, 2022 9:05pm Advance Directive Response Recorded Date/ Time Living Will No April 13, 2023 4:10am Power of Business Assistant No April 4:10am Advance Directive Response Recorded Date/ Time Living Will No November 02, 2024 11:27am Do you have a Healthcare Power of Business Assistant? No November 02, 2024 11:27am Living Will No August 03 024 2:14pm Do you have a Healthcare Power of Business Assistant? No August 03, 2024 2:14pm Advance Directive Response Recorded Date/ Time Living Will No November 02, 2024 1:54pm Do you have a Healthcare Power of Business Assistant? No November 02, 2024 1:54pm Living Will No August 03, 024 2:14pm Do you have a Healthcare Power of Business Assistant? No August 03, 2024 2:14pm Advance Directive Response Recorded Date/ Time Do you have a Healthcare Power of Business Assistant? No April 21, 2025 2:04am Advance Directive Response Recorded Date/ Time Do you have a Healthcare Power of Business Assistant? No April 21, 2025 2:04am Do you have a Healthcare Power of Business Assistant? No April 22, 2025 7:38am Chief Complaint [...] section and content) DATE CREATED AUTHOR 07/12/2018 [facility] [place] DATE CREATED AUTHOR AUTHOR'S ORGANIZ ATION 05/13/2023 [facility] DATE CREATED AUTHOR AUTHOR'S ORGANIZ ATION 04/26/2025 [facility] Goals (unrecognized section and content) Goals may [...] BE BASED ON THE PRIMARY CLINICAL RECORDS. [employer] [facility]. provides no warranty or guarantee of the accuracy or completeness of information in this document.
--- NOTE | 2025-05-31 04:45 | EDS_ITS ---
HPI History of Present Illness Chief Complaint: GI Bleed Informant: patient and parent Narrative Narrative: Patient is a 34-year-old male with past medical history of schizophrenia as well as anxiety and depression. He states he typically vapes THC daily. He reports that he has had 3 days of nausea vomiting and diarrhea. He denies any known sick contacts. He was seen in the ER earlier today and had blood work and a CT scan that showed intestinal thickening consistent with diarrheal illness. Reportedly after receiving multiple medications symptoms improved and he was discharged home. Patient states after returning home he has had recurrent bouts of nausea and vomiting and persistent diarrhea. He states he feels that there is discoloration or potential blood to the emesis. Therefore with return/worsening of symptoms he presents for evaluation [facility] Medical History Spinal stenosis Schizophrenia Depression Anxiety Smoker Schizophrenia Migraines Asthma Home Medications ?Medication ?Instructions ?Recorded ?Last Taken ?Type divalproex 500 mg tablet,delayed 1,000 mg PO BID 06/0211/02/24 History release albuterol sulfate 90 mcg/actuation 1 - 2 puff inhalati on Q4H PRN cough 11/02/24 Unknown History aerosol inhaler escitalopram oxalate 20 mg tablet 20 mg PO DAILY 11/0211/02/24 History lorazepam 1 mg tablet 1 mg PO BID 11/02/24 Unknown History diclofenac sodium 75 mg 75 mg PO BID 04/21/25 Unknow n History tablet,delayed release haloperidol 5 mg tablet 5 mg PO BID 04/21/25 Unknown History hydroxyzine HCl 50 mg tablet 50 mg PO TID 04/21/25 Unk nown History promethazine 25 mg tablet 25 mg PO Q6H PRN nausea and 04/22/25 Unknown Rx vomiting 7 days #30 tabs azelastine 137 mcg (0.1 %) nasal 2 spray intranasal DA YARELIS 05/31/25 Unknown History spray bupropion HCl 100 mg tablet PO 05/31/25 Unknown Histor y tizanidine 4 mg tablet 8 mg PO Q8H PRN PRN low back pain 05/31/25 Unknown History Allergy/AdvReac Type Severity Reaction Status Date / Time Sulfa (Sulfonamide Allergy Unknown Verified 05/31/25 00:41 Antibiotics) sulfisoxazole (From Allergy Hives Verified 05/31/25 00:41 [place]) Social History household members: family Smoking Status: Current every day smoker tobacco type: cigarettes and e- cigarettes ROS ROS ED Constitutional Constitutional ED: Denies chills or fever(s) Eyes Eyes: Denies change in vision ENT ENT ED: Reports sore throat Cardiovascular Cardiovascular: Reports racing heartbeat; Denies chest pain Respiratory/Chest Respiratory/Chest: Denies cough or dyspnea Gastrointestinal Gastrointestinal: Reports abdominal pain, diarrhea, nausea and vomiting Genitourinary Genitourinary ED: Denies dysuria Musculoskeletal Musculoskeletal: Denies myalgias Integumentary Denies rash Neurologic Neurologic: Reports weakness; Denies headache(s) Hematologic/Lymphatic Hematologic/Lymphatic: Denies easy bleeding or easy bruising Allergic/Immunologic Allergic/Immunologic ED: Denies mouth swelling or tongue swelling EXAM Physical Exam Const Vital Signs: 05/31/25 00:42 05/31/25 00:46 05/31/25 01:46 Temperature 98.6 F 98.6 F 98.8 F Temperature Source Oral Axillary Axillary Pulse Rate 115 H 115 H 135 H Respiratory Rate 19 H 19 H 18 Blood Pressure 160/96 H 160/96 H 159/96 H Blood Pressure Mean 117 117 117 Pulse Ox 99 100 100 Oxygen Delivery Method Room Air Room Air 05/31/25 02:00 05/31/25 03:32 Temperature 98.8 F 98.8 F Temperature Source Oral Pulse Rate 145 H 127 H Respiratory Rate 18 18 Blood Pressure 138/81 H 141/99 H Blood Pressure Mean 100 113 Pulse Ox 100 97 Oxygen Delivery Method Room Air Positive well nourished, well developed and obese General Appearance ED: well developed; Negative for pallor Nutritional Appearance: obese HEENT Reports dry mucous membranes HEENT Narrative: Normocephalic atraumatic No tongue or lip swelling no oral lesions no airway edema or compromise; no secondary findings in the posterior pharynx to suggest infection No dried blood or active bleeding noted in the posterior pharynx Mouth ED: Yes dry mucous membranes Mouth: dry mucous membranes Eyes PERRL and EOMs intact bilaterally General Eye ED: Negative for pale conjunctiva or scleral icterus Neck supple Neck Narrative: No crepitance palpated Chest Wall palpation of chest normal Resp clear to auscultation bilaterally Resp Narrative: Breath sounds are diminished throughout and patient is tachypneic but otherwise no nasal flaring retractions or accessory muscle use No rales or wheezes or rhonchi or crackles noted Cardio regular rhythm Rate: tachycardic and other Other Details: Tachycardic rate with regular rhythm GI non-distended and no masses GI Narrative: Abdomen is soft and nondistended with hyperactive bowel sounds Mild diffuse pain with palpation No voluntary guarding or rigidity No pulsatile mass No peritoneal signs Auscultation: hyperactive bowel sounds Palpation: soft Extremity normal to inspection Neuro oriented x3, CN's II-XII intact bilaterally and no sensory deficits noted Sensorium / Orientation: alert Motor Exam: strength 5/5 throughout Psych Mood & Affect: anxious Skin no rashes or lesions noted and No skin turgor normal Skin Narrative: Skin turgor is increased General Skin Exam: Negative for jaundice or pallor MDM MDM MDM Narrative Medical decision making narrative: Patient arrived to the ER hypertensive and tachycardic. His previous ED visit and labs and CT scan were reviewed. The fact that he reports vaping THC daily would indicate that his symptoms are most likely related to cannabis hyperemesis syndrome. However I do feel that with his reported loose stool/diarrhea that this is exacerbated by a viral stomach infection such as rotavirus or norovirus. As a CT scan done earlier today revealed just fluid-filled intestines without obstruction or perforation or signs of secondary infection such as pancreatitis or appendicitis I felt no need for repeat CT scan. Of note I did initially did order 1 then after realize he was here earlier in the day and review was able to cancel and perform x-rays. As reported feeling pain up into his esophagus with potential emesis to coloration there is concern for Ivonne-Moreno tear versus Boerhaave syndrome. The chest x-ray revealed no sign of free air going against Boerhaave syndrome. The patient was given Zofran upon arrival secondary to his recurrent emesis and as there was concern this was related to cannabis hyperemesis syndrome he was given Thorazine and Benadryl as well. He still reported feeling nauseous and having dry heaves so therefore he was given Ativan Protonix and a GI cocktail. Despite all of these medications he still complains of nausea and states he does not feel comfortable returning home based on his persistent symptoms. Therefore I discussed the case with the hospitalist. At this time his labs are similar in nature to earlier in the day. His white count did increase from 15-20 but he is afebrile and I feel this is most likely due to stress response. Lactic acid is also elevated but I feel this is related to dehydration. We discussed potentially performing a CTA of the abdomen and pelvis but at this time the hospitalist also agrees that this is most likely dehydration from viral infection and cannabis hyperemesis syndrome and therefore states he was simply provided medication and checked the patient and hold off on imaging at this time. Therefore with intractable nausea and vomiting and dehydration changes will be admitted to the hospitalist for continued observation and care History & Record Review Discussion w/independent historian: Patient and Family Additional record(s) reviewed:: Prior ED visit and Prior labs Lab Data Attestation: I reviewed the patient's lab results. Labs: Laboratory Results - last 24 hr 05/31/25 05/31/25 01:10 01:11 WBC 19.9 H RBC 5.39 Hgb 17.0 H Hct 49.4 MCV 91.7 MCH 31.5 MCHC 34.4 RDW Std Deviation 43.2 RDW Coeff of Rohith 12.8 Plt Count 360 MPV 10.4 Immature Gran % (Auto) 0.500 Neut % (Auto) 85.4 H Lymph % (Auto) 8.3 L [place] % (Auto) 5.6 Eos % (Auto) 0.0 Baso % (Auto) 0.2 Absolute Neuts (auto) 17.0 H Absolute Lymphs (auto) 1.65 Nucleated RBC % 0 PT 13.2 INR 1.0 APTT 22.7 L Sodium 142 Potassium 3.4 Chloride 101 Carbon Dioxide 18.3 L Anion Gap 23 H BUN 9 Creatinine 1.31 H Estim Creat Clear Calc 103.71 Est GFR (MDRD) Non-Af 73 BUN/Creatinine Ratio 7.1 L Glucose 187 H Lactic Acid 4.0 H* Calcium 9.5 Total Bilirubin 0.39 Direct Bilirubin 0.18 AST 18 ALT 12 Alkaline Phosphatase 87 Total Protein 7.4 Albumin 4.7 Globulin 2.6 Lipase 51 Radiography Diagnostic Testing: Clinical Impression(s) from Imaging Studies Chest X-Ray 05/31/25 02:40 IMPRESSION: No focal consolidations. Reading Location: [facility] Chest x-ray as interpreted by the emergency medicine physician reveals no acute infiltrate pneumothorax pneumomediastinum or pleural effusion Management Discussion w/another healthcare provider: Hospitalist Discharge Plan Dx/Rx/DC Orders Clinical Impression: Intractable nausea and vomiting, Diarrhea, Tetrahydrocannabinol (THC) use disorder, mild, abuse, Dehydration, Leukocytosis, Schizophrenia Disposition Disposition: Acute Care Hospital [facility] Discharge Date/Time: 05/31/25 05:06
[2025-05-31 05:17] LABS: Reflex Lactate? Y
[2025-05-31] MEDS: 0.9% Normal Saline (1000mL) 1,000 ML 125 ML IV ×3 (05:43→21:05)
[2025-05-31 06:26] LABS: Hematocrit 47.8 % (40-54); Hemoglobin 16.3 g/dL (13.0-16.5); Immature Granulocytes Count 0.080 X10^3/uL (0.0-0.0); Mean Corp Hgb Conc 34.1 g/dL (32-36); Mean Corpuscular Volume 93.2 fL (80-94); Mean Platelet Vol. 9.9 fl (6.2-12.0); NRBC Flagged by Analyzer 0 % (0-5); Platelet Count 263 K/mm3 (150-450); RBC Distribution Width CV 13.0 % (11.6-14.6); RBC Distribution Width SD 44.7 fl (35.1-43.9); Red Blood Count 5.13 M/mm3 (4.6-6.2); White Blood Count 20.9 K/mm3 (4.4-11.0)
[2025-05-31 06:45] LABS: AST(SGOT) 17 U/L (<=37); Alanine Aminotransfer ALT/SGPT 12 U/L (<=46); Albumin, Serum 4.5 g/dL (3.5-5.0); Alkaline Phosphatase 80 U/L (40-129); Anion Gap 18 (5-15); BUN 7 mg/dL (4-19); BUN/Creat Ratio 6.6 RATIO (10-20); Calcium,Total 8.5 mg/dL (7.6-11.0); Carbon Dioxide 20.4 mmol/L (21.0-32.0); Chloride 102 mmol/L (98-108); Estimated Creatinine Clearance 121.77 ml/min (50-250); Globulin 2.6 g/dL (2.2-4.2); Glucose 126 mg/dL (70-99); Potassium 3.8 mmol/L (3.3-5.1)
[2025-05-31] MEDS: 0.9% Saline Lock 10 ML Syringe IV (07:03)
--- NOTE | 2025-05-31 08:46 | PCM.PN.BLA ---
Progress Note 1. Intractable nausea and vomiting from THC versus viral gastroenteritis ? Continue with IV fluids ? Continue with antiemetics ? Stool studies are pending 2. Anxiety/depression/possible schizophrenia ? Stable ? Continue with his home medications
--- NOTE | 2025-05-31 08:57 | NURSING ---
Pt states vomiting blood profusely multiple times around 0500. Nurse charting indicates clear emesis only. Will notify .
[2025-05-31] MEDS: Azelastine HCl NASAL.SRY 2 SPRAY NASAL (09:26)
[2025-05-31] MEDS: hydrOXYzine PAM 25 MG Capsule 50 MG PO ×2 (13:48→21:04)
--- NOTE | 2025-05-31 14:17 | CHAPLAIN ---
Type of Pastoral Visit _x__ Initial Visit ___ Follow-up Visit ___ On-call Visit ___ General Patient Visit ___ Spiritual Assessment ___ Family Conference ___ Bereavement ___ Rapid Response ___ Code Blue ___ Other (describe below) Pastoral Care Referral From _x__ Patient ___ Family ___ Nurse ___ Physician ___ Laryngologist ___ Pipe Line Maintenance Supervisor ___ Other (describe below) Sacrament/Intervention _x__ Active listening ___ Anointing ___ Congregational ___ Bereavement ___ Communion ___ Tila exploration ___ ___ Life review _x__ Prayer ___ Reconciliation ___ Sacrament of Sick _x__ Supportive presence ___ Wedding ___ Other (describe below) Pastoral Comments patient is awake but tired; pt had been resting and states that is mostly what he needs at this time; pt is offered supportive presence and prayer now and in the future; pt requests to have a Bible to read and that was given to him; pt expresses thanks for coming to check on him and offering support
[2025-06-01 02:15] VITALS: BP 151/85; PULSE 96; RESP 16; TEMP 37; O2SAT 95
[2025-06-01 05:00] VITALS: PULSE 96; RESP 16
[2025-06-01] MEDS: 0.9% Normal Saline (1000mL) 1,000 ML 125 ML IV (05:27)
[2025-06-01] MEDS: hydrOXYzine PAM 25 MG Capsule 50 MG PO (05:27)
[2025-06-01 06:06] LABS: Hematocrit 41.2 % (40-54); Hemoglobin 13.9 g/dL (13.0-16.5); Immature Granulocytes Count 0.060 X10^3/uL (0.0-0.0); Mean Corp Hgb Conc 33.7 g/dL (32-36); Mean Corpuscular Volume 92.6 fL (80-94); Mean Platelet Vol. 9.4 fl (6.2-12.0); NRBC Flagged by Analyzer 0 % (0-5); Platelet Count 218 K/mm3 (150-450); RBC Distribution Width CV 13.1 % (11.6-14.6); RBC Distribution Width SD 44.1 fl (35.1-43.9); Red Blood Count 4.45 M/mm3 (4.6-6.2); White Blood Count 12.9 K/mm3 (4.4-11.0)
[2025-06-01 06:31] LABS: BUN 2 mg/dL (4-19); Calcium,Total 7.8 mg/dL (7.6-11.0); Carbon Dioxide 25.6 mmol/L (21.0-32.0); Chloride 109 mmol/L (98-108); Estimated Creatinine Clearance 179.46 ml/min (50-250); Glucose 101 mg/dL (70-99); Potassium 3.3 mmol/L (3.3-5.1)
[2025-06-01 06:32] LABS: Anion Gap 7 (5-15)
[2025-06-01 06:44] LABS: BUN/Creat Ratio 3.0 RATIO (10-20)
--- NOTE | 2025-06-01 09:23 | DCINST_ITS ---
Discharge Instructions DC O2, CPAP, BIPAP needs Home O2 Discharge instructions: No Dressing / Incision Discharge Activity: Return to Normal Activity Dressing / Incision Call your doctor if you observe: Fever of 101 or Higher, Shortness of breath, Dizziness, Fainting spells, Swelling in the ankles, Chest pain and Increased palpitations (irregular heartbeat) Follow Up Care Test Results: Test results from this visit will be discussed in further detail at your follow- up appointment, if applicable. Discharge Plan Admission Admit Date/Time: 05/31/25 03:57 Attending Provider: Cleveland Guardado Primary Care Provider: Yovani Erickson Consulting Providers: Ren Boggs Discharge Orders/Prescriptions Prescriptions: New ondansetron 4 mg tablet,disintegrating 4 mg PO Q8H PRN (Reason: nausea and vomiting) Qty: 10 0RF Continued albuterol sulfate 90 mcg/actuation HFA aerosol inhaler 1 - 2 puff inhalation Q4H PRN (Reason: cough) lorazepam 1 mg tablet 1 mg PO BID escitalopram oxalate 20 mg tablet 20 mg PO DAILY tizanidine 4 mg tablet 8 mg PO Q8H PRN PRN (Reason: low back pain) bupropion HCl 100 mg tablet PO azelastine 137 mcg (0.1 %) spray,non-aerosol 2 spray INTRANASAL DAILY divalproex 500 mg tablet,delayed release (DR/EC) 1,000 mg PO BID haloperidol 5 mg tablet 5 mg PO BID hydroxyzine HCl 50 mg tablet 50 mg PO TID promethazine 25 mg tablet 25 mg PO Q6H PRN (Reason: nausea and vomiting) 7 Days Qty: 30 0RF Held diclofenac sodium 75 mg tablet,delayed release (DR/EC) 75 mg PO BID Hold Instructions: Resume on 06/04/25. Referrals / Follow Up: Yovani Erickson MD [Primary Care Provider, Family Practice] - Within 1 Week Disposition Disposition (needs filled in before D/C Order can be placed): Home, Self Care
[2025-06-01] MEDS: Azelastine HCl NASAL.SRY 2 SPRAY NASAL (09:35)
[2025-06-01 09:48] VITALS: BP 124/98; PULSE 81; RESP 16; TEMP 37.1; O2SAT 96
--- NOTE | 2025-06-01 10:22 | PHA.DC_ITS ---
Pharmacy [facility] has performed discharge medication counseling for this patient. The patient was counseled on the following discharge medications and changes in medications for homegoing review. - Ondansetron 4 mg ODT The Reason for Use, instructions for use, and potential side effects were reviewed for all new medications. The patient's questions regarding all of their medications were answered. The patient was able to verbally demonstrate an understanding of their discharge medications. Medications at Discharge Home Medications divalproex 500 mg tablet,delayed release 1,000 mg PO BID 06/02/24 albuterol sulfate 90 mcg/actuation aerosol inhaler 1 - 2 puff inhalation Q4H PRN cough 11/02/24 escitalopram oxalate 20 mg tablet 20 mg PO DAILY 11/02/24 lorazepam 1 mg tablet 1 mg PO BID 11/02/24 diclofenac sodium 75 mg tablet,delayed release 75 mg PO BID 04/21/25 Held on 06/01/25. Instructions: Resume on 06/04/25. haloperidol 5 mg tablet 5 mg PO BID 04/21/25 hydroxyzine HCl 50 mg tablet 50 mg PO TID 04/21/25 promethazine 25 mg tablet 25 mg PO Q6H PRN nausea and vomiting 7 days #30 tabs 04/22/25 azelastine 137 mcg (0.1 %) nasal spray 2 spray intranasal DAILY 05/31/25 bupropion HCl 100 mg tablet PO 05/31/25 tizanidine 4 mg tablet 8 mg PO Q8H PRN PRN low back pain 05/31/25 ondansetron 4 mg disintegrating tablet 4 mg PO Q8H PRN nausea and vomiting #10 tabs 06/01/25
--- NOTE | 2025-06-01 11:29 | CASEMGMT ---
RN CM into pt room, pt lying in bed in no distress. Noted pt guardian listed. Pt states his mother Tram Masters is still his guardian. Pt states this is his mother and he lives with her. Pt denies any homegoing needs, reports being indep at home. TC to pt guardian, she is now aware pt will be dc'd. She is going to be transporting pt home. She denies any homegoing needs for pt as well. Updated pt nurse that pt mother will be coming to transport pt home.
--- NOTE | 2025-06-01 11:51 | CHAPLAIN ---
Type of Pastoral Visit _x__ Initial Visit ___ Follow-up Visit ___ On-call Visit ___ General Patient Visit ___ Spiritual Assessment ___ Family Conference ___ Bereavement ___ Rapid Response ___ Code Blue ___ Other (describe below) Pastoral Care Referral From ___ Patient _x__ Family ___ Nurse ___ Physician ___ Whipped Topping Supervisor ___ Risk Consulting Treasury Director ___ Other (describe below) Sacrament/Intervention _x__ Active listening ___ Anointing ___ Rastafari ___ Bereavement ___ Communion ___ Tila exploration ___ _x__ Life review ___ Prayer ___ Reconciliation ___ Sacrament of Sick ___ Supportive presence ___ Wedding ___ Other (describe below) Pastoral Comments family members are known to this manufacturing lab technician; patient remembers this manufacturing lab technician from visits last year in Rehab; pt reports on how well he has done since then but admits some memory issues and 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
--- NOTE | 2025-06-01 11:54 | CHAPLAIN ---
Type of Pastoral Visit ___ Initial Visit _x__ Follow-up Visit ___ On-call Visit ___ General Patient Visit ___ Spiritual Assessment ___ Family Conference ___ Bereavement ___ Rapid Response ___ Code Blue ___ Other (describe below) Pastoral Care Referral From _x__ Patient ___ Family ___ Nurse ___ Physician ___ Meat Passer ___ Criminal Research Specialist ___ Other (describe below) Sacrament/Intervention ___ Active listening ___ Anointing ___ Mormonism ___ Bereavement ___ Communion ___ Tila exploration ___ ___ Life review ___ Prayer ___ Reconciliation ___ Sacrament of Sick _x__ Supportive presence ___ Wedding ___ Other (describe below) Pastoral Comments patient states that he is going home today and that makes him glad; pt expresses thanks for the Bible given to him but acknowledges that he was too tired to read it; pt is given the Bible and encouraged to read it at home if he desires; pt expresses thanks for checking up on him and offering support; pt is more optimistic today about going home and feeling better
--- NOTE | 2025-06-01 13:05 | DS.PCM_ITS ---
Providers Date of Admission: 05/31/25 Primary Care Physician: Dr. Yovani Erickson MD Reason For Visit: INTRACTABLE NAUSEA & VOMITING Diagnosis Discharge Diagnosis (1) Nausea, vomiting, and diarrhea: Status: Acute Code(s): R11.2 - Nausea with vomiting, unspecified; R19.7 - Diarrhea, unspecified (2) Depression, major: Status: Acute Code(s): F32.9 - Major depressive disorder, single episode, unspecified Medications at Discharge Home Medications divalproex 500 mg tablet,delayed release 1,000 mg PO BID 06/02/24 albuterol sulfate 90 mcg/actuation aerosol inhaler 1 - 2 puff inhalation Q4H PRN cough 11/02/24 escitalopram oxalate 20 mg tablet 20 mg PO DAILY 11/02/24 lorazepam 1 mg tablet 1 mg PO BID 11/02/24 diclofenac sodium 75 mg tablet,delayed release 75 mg PO BID 04/21/25 Held on 06/01/25. Instructions: Resume on 06/04/25. haloperidol 5 mg tablet 5 mg PO BID 04/21/25 hydroxyzine HCl 50 mg tablet 50 mg PO TID 04/21/25 promethazine 25 mg tablet 25 mg PO Q6H PRN nausea and vomiting 7 days #30 tabs 04/22/25 azelastine 137 mcg (0.1 %) nasal spray 2 spray intranasal DAILY 05/31/25 bupropion HCl 100 mg tablet PO 05/31/25 tizanidine 4 mg tablet 8 mg PO Q8H PRN PRN low back pain 05/31/25 ondansetron 4 mg disintegrating tablet 4 mg PO Q8H PRN nausea and vomiting #10 tabs 06/01/25 Hospital Course Operations None Procedures None Summary of Care Provided Minutes Spent on Discharge: 33 Hospital Course: Per HPI: AIMEE DUCKWORTH, is a 34 M who presents to the emergency room with chief complaint of nausea and vomiting. Onset of symptoms began approximately 3 days ago with nausea, vomiting and diarrhea. The patient was seen earlier in the emergency room and sent home only to return with worsening symptoms of nausea and vomiting this evening. Patient describes having some lower left abdominal quadrant pain and is feeling dehydrated and weak. Patient does admit to smoking marijuana routinely. CT scan was noted to have some fluid-filled loops of bowel air consistent with gastroenteritis. CBC and BMP were unremarkable. Patient denies any fevers or chills and/or shortness of breath at present time will be admitted to general medical floor for observation with IV hydration and antiemetic medication. Hospital Course: 1. Intractable nausea vomiting and diarrhea secondary to THC versus viral gastroenteritis?34-year-old male presented to the hospital with a complaint of nausea, vomiting, and diarrhea. Started about 3 days prior to admission and he does have a history of using marijuana routinely. He was started on multiple medications for nausea and started to complain about esophagus pain because of the violence of his vomiting as well as burning. He was started on aggressive IV fluids and stool studies were negative. Today on the day of discharge every vital signs were normal and lab work was unremarkable. He indicated that he was able to tolerate p.o. intake without any nausea or vomiting and I discussed with him the possibility for discharge. He expressed understanding of the risk and benefits of going home and would like to go home today. I will provide him with antiemetic medication and recommend outpatient follow-up with his primary care provider. 2. Anxiety, depression, possible schizophrenia or other chronic medical conditions which complicate his care. His home medications were continued where appropriate Physical Exam Narrative General: Alert, Oriented x3, Cooperative, No apparent distress HEENT: Atraumatic, PERRLA, EOMI, Normocephalic Oral: Moist Mucosa Neck: Supple, No JVD Lungs: Diminished, Normal air movement, No rhonchi, No wheeze, No rales Cardiovascular: Regular rate, Regular Rhythm, Normal S1, Normal S2, No murmurs, chest pain to palpation Abdomen: Soft, Non Tender, Non-Distended, No Hepato-splenomegaly Extremities: No edema, Capillary Refill Less than 3 Seconds Skin: No rashes, No breakdown Musculoskeletal: No Tenderness to Palpation of Joints or Extremities Neurological: No focal neurological deficits, moves all extremities Psych/Mental Status: Normal Affect, Appropriate Weight / BMI Weight Weight: 253 lb 15.56 oz Body Mass Index (BMI) 34.4 ABG / Lab / Microbiology Data 06/01/25 05:56 06/01/25 05:56 Laboratory: Laboratory Results - last 24 hr 06/01/25 05:56: WBC 12.9 H, RBC 4.45 L, Hgb 13.9, Hct 41.2, MCV 92.6, MCH 31.2, MCHC 33.7, RDW Std Deviation 44.1 H, RDW Coeff of Rohith 13.1, Plt Count 218, MPV 9.4, Immature Gran % (Auto) 0.500, Neut % (Auto) 68.0, Lymph % (Auto) 22.0, [place] % (Auto) 8.2, Eos % (Auto) 1.0, Baso % (Auto) 0.3, Absolute Neuts (auto) 8.7 H, Absolute Lymphs (auto) 2.83, Nucleated RBC % 0, Sodium 141, Potassium 3.3, C hloride 109 H, Carbon Dioxide 25.6, Anion Gap 7, BUN 2 L, Creatinine 0.76, Estim Creat Clear Calc 179.46, Est GFR (MDRD) Non-Af 121, BUN/Creatinine Ratio 3.0 L, Glucose 101 H, Calcium 7.8 Microbiology: Microbiology 05/31/25 09:30 Stool Enteric Bacteriology - Final D/C Instructions Call your doctor if you observe: Fever of 101 or Higher, Shortness of breath, Dizziness, Fainting spells, Swelling in the ankles, Chest pain and Increased palpitations (irregular heartbeat) DC O2, CPAP, BIPAP Needs Home O2 Discharge instructions: No Meaningful Use Info Meaningful Use Meaningful Use Diagnoses (Choose all that apply): None applicable Discharge Plan Admission Admit Date/Time: 05/31/25 03:57 Attending Provider: Cleveland Guardado Primary Care Provider: Yovani Erickson Consulting Providers: Ren Boggs Discharge Orders/Prescriptions Prescriptions: New ondansetron 4 mg tablet,disintegrating 4 mg PO Q8H PRN (Reason: nausea and vomiting) Qty: 10 0RF Continued albuterol sulfate 90 mcg/actuation HFA aerosol inhaler 1 - 2 puff inhalation Q4H PRN (Reason: cough) lorazepam 1 mg tablet 1 mg PO BID escitalopram oxalate 20 mg tablet 20 mg PO DAILY tizanidine 4 mg tablet 8 mg PO Q8H PRN PRN (Reason: low back pain) bupropion HCl 100 mg tablet PO azelastine 137 mcg (0.1 %) spray,non-aerosol 2 spray INTRANASAL DAILY divalproex 500 mg tablet,delayed release (DR/EC) 1,000 mg PO BID haloperidol 5 mg tablet 5 mg PO BID hydroxyzine HCl 50 mg tablet 50 mg PO TID promethazine 25 mg tablet 25 mg PO Q6H PRN (Reason: nausea and vomiting) 7 Days Qty: 30 0RF Held diclofenac sodium 75 mg tablet,delayed release (DR/EC) 75 mg PO BID Hold Instructions: Resume on 06/04/25. Referrals / Follow Up: Yovani Erickson MD [Primary Care Provider, Family Practice] - Within 1 Week Disposition Disposition (needs filled in before D/C Order can be placed): Home, Self Care Charges/Coding Visit Charges Inpatient E&M: 47791 Disch Hosp >30min
== END 2025-06-01 09:33 | disposition home or self-care (01) ==
LOC: ED 03:50 → MS3 04:04
PROVIDERS: Admitting Provider Family Medicine; Emergency Provider Emergency Medicine; PCP Family Medicine; Visit Provider Family Medicine
DX: F32.9 Major depressive disorder, single episode, unspecified (principal); F17.210 Nicotine dependence, cigarettes, uncomplicated; F41.9 Anxiety disorder, unspecified; F12.10 Cannabis abuse, uncomplicated; R11.2 Nausea with vomiting, unspecified; E86.0 Dehydration; D72.829 Elevated white blood cell count, unspecified; R19.7 Diarrhea, unspecified; K92.2 Gastrointestinal hemorrhage, unspecified; F17.290 Nicotine dependence, other tobacco product, uncomplicated; J45.909 Unspecified asthma, uncomplicated; Z79.899 Other long term (current) drug therapy; Z79.51 Long term (current) use of inhaled steroids
CPT/HCPCS: 36415; 71046; 80048; 80053; 80076; 83605; 83690; 85025; 85610; 85730; 87506; 96361; 96365; 96367; 96375; 96376; 97802; 99221; 99284; A4216; G0378; J2405

== ENCOUNTER 2025-06-30 17:16 | Emergency (ER) | payer MEDICARE, MEDICAID, SELFPAY ==
[2025-06-30 17:17] VITALS: BP 136/99; PULSE 118; RESP 22; TEMP 36.8; O2SAT 97; BMI 34.8
--- NOTE | 2025-06-30 18:00 | EDS_ITS ---
HPI History of Present Illness Chief Complaint: Nausea/Vomiting Informant: patient Narrative Narrative: Patient is a 34-year-old male with history of schizophrenia, anxiety, depression, daily THC use presenting with nausea vomiting, diarrhea and abdominal pain. Patient states he is allergic to turkey and the aroma of the turkey being cooked in his house caused him to start throwing up and having diarrhea. States he had multiple forceful episodes of vomiting as well as diarrhea. Reports some blood in his emesis he thinks is coming from his esophagus and his stomach. States his abdomen is now sore from all of the vomiting. States he did have an episode of diarrhea in the ER. Denies any blood or melena in his stool. States this feels similar to when he was admitted for intractable nausea and vomiting a month ago. Denies any associated rash or skin changes. Denies any facial swelling or shortness of breath. Patient is currently requesting something to drink. Discharge summary reviewed from 06/01/2025. Patient was admitted the day before for intractable nausea and vomiting thought to be gastroenteritis versus THC associated. Was treated with IV fluids and antiemetics. [facility] Medical History Spinal stenosis Schizophrenia Depression Anxiety Smoker Schizophrenia Migraines Asthma Home Medications Medication Instructions Recorded Last Taken Type divalproex 500 mg tablet,delayed 1,000 mg PO BID 06/0211/02/24 History release albuterol sulfate 90 mcg/actuation 1 - 2 puff inhalati on Q4H PRN cough 11/02/24 Unknown History aerosol inhaler escitalopram oxalate 20 mg tablet 20 mg PO DAILY 11/0211/02/24 History lorazepam 1 mg tablet 1 mg PO BID 11/02/24 Unknown History diclofenac sodium 75 mg 75 mg PO BID 04/21/25 Unknow n History tablet,delayed release Held on 06/01/25. Instructions: Resume on 06/04/25. haloperidol 5 mg tablet 5 mg PO BID 04/21/25 Unknown History hydroxyzine HCl 50 mg tablet 50 mg PO TID 04/21/25 Unk nown History promethazine 25 mg tablet 25 mg PO Q6H PRN nausea and 04/22/25 Unknown Rx vomiting 7 days #30 tabs azelastine 137 mcg (0.1 %) nasal 2 spray intranasal DA YARELIS 05/31/25 Unknown History spray bupropion HCl 100 mg tablet PO 05/31/25 Unknown Histor y tizanidine 4 mg tablet 8 mg PO Q8H PRN PRN low back pain 05/31/25 Unknown History ondansetron 4 mg disintegrating 4 mg PO Q8H PRN nausea and 06/01/25 Unknown Rx tablet vomiting #10 tabs ondansetron 4 mg disintegrating 4 mg PO Q8H PRN PRN Na usea #10 tabs 06/30/25 Unknown Rx tablet promethazine 25 mg tablet 25 mg PO Q6H PRN nausea and 06/30/25 Unknown Rx vomiting #20 tabs Allergy/AdvReac Type Severity Reaction Status Date / Time Sulfa (Sulfonamide Allergy Unknown Verified 06/30/25 17:17 Antibiotics) sulfisoxazole (From Allergy Hives Verified 06/30/25 17:17 Gantrisin) Social History household members: family Smoking Status: Current every day smoker tobacco type: cigarettes and e- cigarettes ROS ROS ED Constitutional Constitutional ED: Reports chills; Denies fever(s) Cardiovascular Cardiovascular: Denies chest pain Respiratory/Chest Respiratory/Chest: Denies cough or dyspnea Gastrointestinal Gastrointestinal: Reports abdominal pain, diarrhea, nausea and vomiting Genitourinary Genitourinary ED: Denies dysuria Musculoskeletal Musculoskeletal: Denies arthralgias or myalgias Neurologic Neurologic: Denies weakness Psychiatric Psychiatric: Reports anxiety Hematologic/Lymphatic Hematologic/Lymphatic: Denies easy bleeding or easy bruising EXAM Physical Exam Const Vital Signs: 06/30/25 17:17 06/30/25 19:39 06/30/25 21:00 Temperature 98.2 F Temperature Source Temporal Pulse Rate 118 H 96 67 Respiratory Rate 22 H 18 18 Blood Pressure 136/99 H 126/80 H 143/89 H Blood Pressure Mean 111 95 107 Pulse Ox 97 98 98 Oxygen Delivery Method Room Air Room Air Room Air Positive well nourished and well developed Constitutional Narrative: Pacing around the room General Appearance ED: well developed and NAD HEENT Reports moist mucous membranes Eyes PERRL Neck supple Chest Wall inspection of chest normal and palpation of chest normal Resp normal respiratory effort and clear to auscultation bilaterally Cardio regular rate and regular rhythm GI Inspection: abdominal distention Auscultation: hyperactive bowel sounds Palpation: soft and tender other (Reports diffuse abdominal discomfort but does not localize on exam. No peritoneal signs.) Extremity normal to inspection Neuro oriented x3 Motor Exam: Negative for general weakness Psych Psych Narrative: Flat affect Mood & Affect: anxious Skin no rashes or lesions noted and no wounds MDM MDM MDM Narrative Medical decision making narrative: Patient valuated recurrent nausea vomiting diarrhea. Tells nursing staff that he actually has the symptoms daily but they are just worse today. Differential includes cannabis hyperemesis syndrome, cyclic vomiting syndrome, gastroenteritis, somatic symptoms from anxiety,, electrolyte derangement, dehydration and ROSE. Patient given initially IV Reglan and fluids as well as Pepcid and Benadryl. He does not have significant improvement of his symptoms however while in the emergency room he continuously drinks water from the faucet and then throws up immediately. He is repetitively asked to stop doing this. He is then given IV Haldol with no improvement. He does have a relatively profound leukocytosis of 26.8 but lab work otherwise largely normal including a normal anion gap and bicarb. Because of this I did add on a CT of the abdomen and pelvis. This did not show any acute process but did show continued mild to moderate wall thickening diffusely through the colon and rectum compatible with colitis which is similar but less pronounced than on previous study. Concern for possible inflammatory bowel disease. Patient's vital signs normalized in emergency room and his tachycardia resolved. He is given further cyclic vomiting cocktail of IV Ativan and Thorazine. On repeat evaluation he is further improvement. He is no longer having any retching and able to drink water. Is set up for appointment with GI on 04 July for close outpatient follow-up. Counseled on the importance of abstaining from THC products. Given a prescription for both Zofran and Phenergan. Patient left without his discharge paperwork but did have his appointment sheet. Lab Data Attestation: I reviewed the patient's lab results. Labs: Laboratory Results - last 24 hr 06/30/25 18:07 WBC 26.8 H RBC 5.21 Hgb 16.3 Hct 48.4 MCV 92.9 MCH 31.3 MCHC 33.7 RDW Std Deviation 44.3 H RDW Coeff of Rohith 13.0 Plt Count 305 MPV 10.1 Immature Gran % (Auto) 0.700 Neut % (Auto) 81.2 H Lymph % (Auto) 8.6 L [place] % (Auto) 8.4 Eos % (Auto) 0.6 Baso % (Auto) 0.5 Absolute Neuts (auto) 21.8 H Absolute Lymphs (auto) 2.31 Nucleated RBC % 0 Differential Comment SCANNED Sodium 141 Potassium 3.6 Chloride 102 Carbon Dioxide 24.1 Anion Gap 14 BUN 10 Creatinine 1.19 Estim Creat Clear Calc 115.20 Est GFR (MDRD) Non-Af 82 BUN/Creatinine Ratio 8.3 L Glucose 142 H Calcium 9.0 Total Bilirubin 0.28 AST 18 ALT 19 Alkaline Phosphatase 74 Total Protein 7.0 Albumin 4.6 Globulin 2.5 Albumin/Globulin Ratio 1.9 Lipase 21 Radiography Diagnostic Testing: Clinical Impression(s) from Imaging Studies Abdomen/Pelvis CT 06/30/25 19:54 IMPRESSION: [id number] wall thickening diffusely throughout the colon and rectum, compatible with colitis. Similar but less pronounced findings are noted on the previous study. This could represent an inflammatory bowel disorder such as ulcerative colitis. Please correlate clinically. Reading Location: [id number] Discharge Plan Triage Chief Complaint: Nausea/Vomiting ED Provider: Mary Ann Villanueva Dx/Rx/DC Orders Clinical Impression: Intractable nausea and vomiting, Moderate tetrahydrocannabinol (THC) dependence, Leukocytosis, Diarrhea Instructions: ED Cyclic Vomiting Syndrome, ED Vomit & Diarrhea Nonspec Adult Prescriptions: New ondansetron 4 mg tablet,disintegrating 4 mg PO Q8H PRN PRN (Reason: Nausea) Qty: 10 0RF promethazine 25 mg tablet 25 mg PO Q6H PRN (Reason: nausea and vomiting) Qty: 20 0RF No Action albuterol sulfate 90 mcg/actuation HFA aerosol inhaler 1 - 2 puff inhalation Q4H PRN (Reason: cough) lorazepam 1 mg tablet 1 mg PO BID escitalopram oxalate 20 mg tablet 20 mg PO DAILY tizanidine 4 mg tablet 8 mg PO Q8H PRN PRN (Reason: low back pain) bupropion HCl 100 mg tablet PO azelastine 137 mcg (0.1 %) spray,non-aerosol 2 spray INTRANASAL DAILY ondansetron 4 mg tablet,disintegrating 4 mg PO Q8H PRN (Reason: nausea and vomiting) Qty: 10 0RF divalproex 500 mg tablet,delayed release (DR/EC) 1,000 mg PO BID haloperidol 5 mg tablet 5 mg PO BID hydroxyzine HCl 50 mg tablet 50 mg PO TID diclofenac sodium 75 mg tablet,delayed release (DR/EC) 75 mg PO BID promethazine 25 mg tablet 25 mg PO Q6H PRN (Reason: nausea and vomiting) 7 Days Qty: 30 0RF Primary Care Provider: Yovani Erickson Referrals: Yovani Erickson MD [Primary Care Provider, Family Practice] Friend,DO Owen [Med Staff - Active Staff, Gastroenterology] Activity Restrictions/Additional Instructions: Please follow closely with GI. Appointment scheduled for 11:30 AM on July 04. Please abstain from THC use as I suspect it is worsening your vomiting and diarrhea. Print Language: [place]i Disposition Disposition: Home, Self Care Discharge Date/Time: 06/30/25 23:43
[2025-06-30] MEDS: 0.9% Normal Saline (1000mL) 1,000 ML 999 ML IV (18:08)
[2025-06-30] MEDS: DiphenhydrAMINE 50 MG/ML Syringe IV (18:10)
[2025-06-30] MEDS: Famotidine 200 MG/20 ML MDV 20 MG in 0.9% Normal Saline (Pres. free 8 ML 300 MG IV (18:13)
[2025-06-30 18:30] LABS: Hematocrit 48.4 % (40-54); Hemoglobin 16.3 g/dL (13.0-16.5); Immature Granulocytes Count 0.190 X10^3/uL (0.0-0.0); Mean Corp Hgb Conc 33.7 g/dL (32-36); Mean Corpuscular Volume 92.9 fL (80-94); Mean Platelet Vol. 10.1 fl (6.2-12.0); NRBC Flagged by Analyzer 0 % (0-5); POSITIVE DIFFERENTIAL YES; Platelet Count 305 K/mm3 (150-450); RBC Distribution Width CV 13.0 % (11.6-14.6); RBC Distribution Width SD 44.3 fl (35.1-43.9); Red Blood Count 5.21 M/mm3 (4.6-6.2); White Blood Count 26.8 K/mm3 (4.4-11.0)
[2025-06-30 18:36] LABS: AST(SGOT) 18 U/L (<=37); Alanine Aminotransfer ALT/SGPT 19 U/L (<=46); Albumin, Serum 4.6 g/dL (3.5-5.0); Alkaline Phosphatase 74 U/L (40-129); Anion Gap 14 (5-15); BUN 10 mg/dL (4-19); BUN/Creat Ratio 8.3 RATIO (10-20); Calcium,Total 9.0 mg/dL (7.6-11.0); Carbon Dioxide 24.1 mmol/L (21.0-32.0); Chloride 102 mmol/L (98-108); Estimated Creatinine Clearance 115.20 ml/min (50-250); Globulin 2.5 g/dL (2.2-4.2); Glucose 142 mg/dL (70-99); Lipase 21 U/L (13-75); Potassium 3.6 mmol/L (3.3-5.1)
--- OUTSIDE RECORDS SUMMARY | 2025-06-30 18:44 | XMS RPT_ITS | CCD ---
Author Organization [facility] CliniSymo Care Team Providers Care Classroom Coordinator Name Role Phone Coco MoreiraTiffAnderson Unavailable Unavailable Hailey Jarquin RF MANAGER Unavailable Unavailable Abraham Aguilar PHARMACY CASHIER Unavailable Unavailable CLEVELAND CAMARGO Attending Unava ilable KAMRON ERICKSON Primary Care Unavailable Dre GUZMÁN, Dr. Pina Primary Care Provider Dr. Rodriguez Beavers DO Attending Provider [phone] Dr. Rodriguez Beavers DO Emergency Provider Dr. Tramaine Tovar MD Emergency Provider [phone] Lori GUZMÁN, Dr. [place] Admit Provider Unavailable Lori GUZMÁN, Dr. [place] Attending Provider Unavailtenzin Sandoval MD, Dr. [place] Other Provider Unavailable Dre GUZMÁN, Dr. Pina Primary Care Physician Dr. Diomedes York DO Emergency Department Physic ayesha Dr. Diomedes York DO Attending Physician Dr. Rodriguez Beavers DO Attending Physician Dr. Rodriguez Beavers DO Emergency Department Physi donna Kamron Erickson Primary Care Unavailable Berhane Adame Attending Unavailable Ren Boggs Attending Unavailable Dre, Kamron Primary Care Unavailable Román Sandoval Attending Unavailable Román Sandoval Admitting Unavailable Dre, Kamron Primary Care Unavailable Román Sandoval Consulting Unavailable Román Sandoval Attending Unavailable Erickson, Kamron Primary Care Unavailable Erickson, Kamron Primary Care Unavailable Rodriguez Beavers Attending Unavailable Román Sandoval Attending Unavailable Dre, Kamron Primary Care Unavailable Román Sandoval Admitting Unavailable Ren Boggs Consulting Unavailable Erickson, Kamron Primary Care Unavailable Ren Boggs Admitting Unavailable Cleveland Guardado Attending Unavailable Cleveland Guardado Consulting Unavailable Diomedes York Attending Unavailable Kamron Erickson Primary Care Unavailable Kamron Erickson Primary Care Unavailable Rodriguez Beavers Attending Unavailable eRn Boggs Admitting Unavailable Ren Boggs Consulting Unavailable Kamron Erickson Primary Care Unavailable Cleveland Guardado Attending Unavailable Allergies Allergy Classification Reported Allergen(s) Allergy Type Date of Onset Reaction(s) Facility (10 sources) sulfiSOXAZOLE Drug Allergy 9 [facility] (11 sources) Sulfonamides (Antibiotic); Translations: [Sulfa (Sulfonamide Antibiotics)] Allergy to substance 9 [facility] (1 source) sulfiSOXAZOLE; Translations: [GANTRISIN] Drug Allergy 3 [facility] (1 source) sulfiSOXAZOLE Drug Allergy 5 [facility] Medications Current Medications Medication Drug Class(es) Dates Sig (Normalized) Sig (Original) acetaminophen 325 mg / oxyCODONE hydrochloride 5 mg oral tablet (2 sources) Opioid Agonist Start: 04-21-2025 take 1 tablet by mouth every six hours as needed for pain [id number] actuat albuterol 0.09 mg/actuat metered dose [...] Translations: [Headache, unspecified] Onset: 08-30-2024 Mood disorders (10 sources) Major depressive disorder; Translations: [Major depressive disorder, single episode, unspecified] Onset: 06-01-2025 11-02-2024 Chronic Nausea and vomiting (20 sources) Nausea and vomiting; Translations: [Nausea with vomiting, unspecified] Onset: 05-06-2023 01-08-2022 Episodic Other circulatory disease (4 sources) Elevated blood-pressure reading without diagnosis of hypertension; Translations: [Elevated blood-pressure reading, without diagnosis of hypertension] 05-04-2024 Episodic Other gastrointestinal disorders (2 sources) Diarrhea, unspecified; Translations: [Diarrhea, unspecified] Onset: 06-01-2025 Episodic Other lower respiratory disease (2 sources) Solitary pulmonary nodule; Translations: [Solitary pulmonary nodule] Onset: 05-06-2023 Episodic Residual codes; unclassified (4 sources) Hallucinations; Translations: [Hallucinations, unspecified] 06-10-2024 Episodic Schizophrenia and other psychotic disorders (20 sources) Paranoid schizophrenia; Translations: [Paranoid schizophrenia] 06-07-2022 Chronic Schizophrenia and other psychotic disorders [...] Test Name Value Interpretation Reference Range Facility Basic Metabolic Profile (BMP )on 06-01-2025 BUN/CRE 3.0 RATIO Low - [facility] Comment on above: Result Comment: AMENDED REPORT 06/01/25 0644 BUN/CRE previously reported as: 2.8 L RATIO Performed By: #### L 300.4310, L503.6005, L300.3900, L501.2450, L500.2500, L500.3400, L100.0100 #### [facility] [address] [place], [address] CBC W/Diff, Automatedon 05-05 Absolute Lymph 2.83 X10 3/uL Normal 0.83-4.51 [facility] Comment on above: Performed By: #### L 300.4310, L503.6005, L300.3900, L501.2450, L500.2500, L500.3400, L100.0100 #### [facility] [address] [place], [address] Absolute Neut 8.7 X10 3/uL High 2.0-7.7 [facility] Comment on above: Performed By: #### L 300.4310, L503.6005, L300.3900, L501.2450, L500.2500, L500.3400, L100.0100 #### [facility] [address] [place], [address] Basophils/100 WBC (Bld) 0.3 % Normal 0-1 [facility] Comment on above: Performed By: #### L 300.4310, L503.6005, L300.3900, L501.2450, L500.2500, L500.3400, L100.0100 #### [facility] [address] [place], [address] Eosinophils/100 WBC (Bld) 1.0 % Normal 0-5 [facility] Comment on above: Performed By: #### L 300.4310, L503.6005, L300.3900, L501.2450, L500.2500, L500.3400, L100.0100 #### [facility] [address] [place], [address] Erythrocyte distribution width (RBC) [Ratio] 13.1 % Normal 11.6-14.6 [facility] Comment on above: Performed By: #### L 300.4310, L503.6005, L300.3900, L501.2450, L500.2500, L500.3400, L100.0100 #### [facility] [address] [place], [address] Hematocrit (Bld) [Volume fraction] 41.2 % Normal 40-54 [facility] Comment on above: Performed By: #### L 300.4310, L503.6005, L300.3900, L501.2450, L500.2500, L500.3400, L100.0100 #### [facility] [address] [place], [address] Hemoglobin (Bld) [Mass/Vol] 13.9 g/dL Normal 13.0-16. 5 [facility] Comment on above: Performed By: #### L 300.4310, L503.6005, L300.3900, L501.2450, L500.2500, L500.3400, L100.0100 #### [facility] [address] [place], [address] IG% 0.500 Normal 0.0-0.9 [facility] Comment on above: Result Comment: IG% - Immature Granulocytes (promyelocytes, myelocytes and metamyelocytes) > 1% indicates that a LEFT SHIFT is Present. Performed By: #### L 300.4310, L503.6005, L300.3900, L501.2450, L500.2500, L500.3400, L100.0100 #### [facility] [address] [place], [address] Lymphocytes/100 WBC (Bld) 22.0 % Normal 19-41 [facility] Comment on above: Performed By: #### L 300.4310, L503.6005, L300.3900, L501.2450, L500.2500, L500.3400, L100.0100 #### [facility] [address] [place], [address] MCH (RBC) [Entitic mass] 31.2 pg Normal 27.0-32.0 [facility] Comment on above: Performed By: #### L 300.4310, L503.6005, L300.3900, L501.2450, L500.2500, L500.3400, L100.0100 #### [facility] [address] [place], [address] MCHC (RBC) [Mass/Vol] 33.7 g/dL Normal 32-36 [facility] Comment on above: Performed By: #### L 300.4310, L503.6005, L300.3900, L501.2450, L500.2500, L500.3400, L100.0100 #### [facility] [address] [place], [address] MCV (RBC) [Entitic vol] 92.6 fL Normal 80-94 [facility] Comment on above: Performed By: #### L 300.4310, L503.6005, L300.3900, L501.2450, L500.2500, L500.3400, L100.0100 #### [facility] [address] [place], [address] Monocytes/100 WBC (Bld) 8.2 % Normal 0-10 [facility] Comment on above: Performed By: #### L 300.4310, L503.6005, L300.3900, L501.2450, L500.2500, L500.3400, L100.0100 #### [facility] [address] [place], [address] Neutrophils/100 WBC (Bld) 68.0 % Normal 47-70 [facility] Comment on above: Performed By: #### L 300.4310, L503.6005, L300.3900, L501.2450, L500.2500, L500.3400, L100.0100 #### [facility] [address] [place], [address] Nucleated RBC (Bld) [#/Vol] 0 10*3/uL Normal 0-5 [facility] Comment on above: Performed By: #### L 300.4310, L503.6005, L300.3900, L501.2450, L500.2500, L500.3400, L100.0100 #### [facility] [address] [place], [address] Platelet mean volume (Bld) [Entitic vol] 9.4 fL Normal 6.2-12.0 [facility] Comment on above: Performed By: #### L 300.4310, L503.6005, L300.3900, L501.2450, L500.2500, L500.3400, L100.0100 #### [facility] [address] [place], [address] Platelets (Bld) [#/Vol] 218 10*3/uL Normal 150-450 [facility] Comment on above: Performed By: #### L 300.4310, L503.6005, L300.3900, L501.2450, L500.2500, L500.3400, L100.0100 #### [facility] [address] [place], [address] RBC (Bld) [#/Vol] 4.45 10*6/uL Low 4.6-6.2 [facility] Comment on above: Performed By: #### L 300.4310, L503.6005, L300.3900, L501.2450, L500.2500, L500.3400, L100.0100 #### [facility] [address] [place], [address] RDW SD 44.1 fl High 35.1-43.9 [facility] Comment on above: Performed By: #### L 300.4310, L503.6005, L300.3900, L501.2450, L500.2500, L500.3400, L100.0100 #### [facility] [address] [place], [address] WBC (Bld) [#/Vol] 12.9 10*3/uL High 4.4-11.0 [facility] Comment on above: Performed By: #### L 300.4310, L503.6005, L300.3900, L501.2450, L500.2500, L500.3400, L100.0100 #### [facility] [address] [place], [address] Discharge Instructionon 05-05 Discharge Instruction [facility] Medical Records Department [address] [place] [address] Instructions for Home/Discharge Instructions 06/01/25 0923 MR#: [id number] Acct: [id number] Name: AIMEE DUCKWORTH Rep #: [id number] : 1990 34 From: Cleveland Guardado MD PCP: Dr. Kamron Erickson MD Status:ADM VELVET Discharge Instructions DC O2, CPAP, BIPAP needs Home O2 Discharge instructions: No Dressing / Incision Discharge Activity: Return to Normal Activity Dressing / Incision Call your doctor if you observe: Fever of 101 or Higher, Shortness of breath, Dizziness, Fainting spells, Swelling in the ankles, Chest pain and Increased palpitations (irregular heartbeat) Follow Up Care Test Results: Test results from this visit will be discussed in further detail at your follow-up appointment, if applicable. Discharge Plan Admission Admit Date/Time: 05/31/25 03:57 Attending Provider: Cleveland Guardado Primary Care Provider: Kamron Erickson Consulting Providers: Ren Boggs Discharge Orders/Prescriptions Prescriptions: New ondansetron 4 mg tablet,disintegrating 4 mg PO Q8H PRN (Reason: nausea and vomiting) Qty: 10 0RF Continued albuterol sulfate 90 mcg/actuation HFA aerosol inhaler 1 - 2 puff inhalation Q4H PRN (Reason: cough) lorazepam 1 mg tablet 1 mg PO BID escitalopram oxalate 20 mg tablet 20 mg PO DAILY tizanidine 4 mg tablet 8 mg PO Q8H PRN PRN (Reason: low back pain) bupropion HCl 100 mg tablet PO azelastine 137 mcg (0.1 %) spray,non-aerosol 2 spray INTRANASAL DAILY divalproex 500 mg tablet,delayed release (DR/EC) 1,000 mg PO BID haloperidol 5 mg tablet 5 mg PO BID hydroxyzine HCl 50 mg tablet 50 mg PO TID promethazine 25 mg tablet 25 mg PO Q6H PRN (Reason: nausea and vomiting) 7 Days Qty: 30 0RF Held diclofenac sodium 75 mg tablet,delayed release (DR/EC) 75 mg PO BID Hold Instructions: Resume on 06/04/25. Referrals / Follow Up: Kamron Erickson MD [Primary Care Provider, Family Practice] - Within 1 Week Disposition Disposition (needs filled in before D/C Order can be placed): Home, Self Care 06/01/25 0933 Cleveland Guardado MD CC: Dr. Kamron Erickson MD; Dr. Ren Boggs MD Signed Normal [facility] Basic Metabolic Profile (BMP )on 05-31-2025 BUN/CRE 7.1 RATIO Low - [facility] Comment on above: Performed By: #### L 300.4310, L503.6005, L300.3900, L501.2450, L500.2500, L500.3400, L100.0100 #### [facility] [address] [place], [address] Calcium [Mass/Vol] 9.5 mg/dL Normal 7.6-11.0 [facility] Comment on above: Performed By: #### L 300.4310, L503.6005, L300.3900, L501.2450, L500.2500, L500.3400, L100.0100 #### [facility] [address] [place], [address] Chloride [Moles/Vol] 101 mmol/L Normal 98-108 [facility] Comment on above: Performed By: #### L 300.4310, L503.6005, L300.3900, L501.2450, L500.2500, L500.3400, L100.0100 #### [facility] [address] [place], [address] CO2 [Moles/Vol] 18.3 mmol/L Low 21.0-32.0 [facility] Comment on above: Performed By: #### L 300.4310, L503.6005, L300.3900, L501.2450, L500.2500, L500.3400, L100.0100 #### [facility] [address] [place], [address] Creatinine [Mass/Vol] 1.31 mg/dL High 0.70-1.20 [facility] Comment on above: Performed By: #### L 300.4310, L503.6005, L300.3900, L501.2450, L500.2500, L500.3400, L100.0100 #### [facility] [address] [place], [address] ECRCL 103.71 ml/min Normal 50-250 [facility] Comment on above: Performed By: #### L 300.4310, L503.6005, L300.3900, L501.2450, L500.2500, L500.3400, L100.0100 #### [facility] [address] [place], [address] GAP 23 High 5-15 [facility] Comment on above: Performed By: #### L 300.4310, L503.6005, L300.3900, L501.2450, L500.2500, L500.3400, L100.0100 #### [facility] [address] [place], [address] GFR/1.73 sq M.predicted among non-blacks MDRD (S/P/Bld) [Vol rate/Area] 73 mL/min/{1.73_m2} Normal >60 [facility] Comment on above: Result Comment: mL/m in/1.73m2 CKD-EPI Creatinine Equation (2020) Performed By: #### L 300.4310, L503.6005, L300.3900, L501.2450, L500.2500, L500.3400, L100.0100 #### [facility] [address] [place], [address] Glucose [Mass/Vol] 187 mg/dL High 70-99 [facility] Comment on above: Performed By: #### L 300.4310, L503.6005, L300.3900, L501.2450, L500.2500, L500.3400, L100.0100 #### [facility] [address] [place], [address] Potassium [Moles/Vol] 3.4 mmol/L Normal 3.3-5.1 [facility] Comment on above: Performed By: #### L 300.4310, L503.6005, L300.3900, L501.2450, L500.2500, L500.3400, L100.0100 #### [facility] [address] [place], [address] Sodium [Moles/Vol] 142 mmol/L Normal 133-145 [facility] Comment on above: Performed By: #### L 300.4310, L503.6005, L300.3900, L501.2450, L500.2500, L500.3400, L100.0100 #### [facility] [address] [place], [address] Urea nitrogen [Mass/Vol] 9 mg/dL Normal 4-19 [facility] Comment on above: Performed By: #### L 300.4310, L503.6005, L300.3900, L501.2450, L500.2500, L500.3400, L100.0100 #### [facility] [address] [place], [address] CBC W/Diff, Automatedon 10-2 -2024 Absolute Lymph 0.91 X10 3/uL Normal 0.83-4.51 [facility] Comment on above: Performed By: #### L 100.0100, L500.4050 #### [facility] [address] [place], [address] Absolute Neut 18.7 X10 3/uL High 2.0-7.7 [facility] Comment on above: Performed By: #### L 100.0100, L500.4050 #### [facility] [address] [place], [address] Basophils/100 WBC (Bld) 0.2 % Normal 0-1 [facility] Comment on above: Performed By: #### L 100.0100, L500.4050 #### [facility] [address] [place], [address] Eosinophils/100 WBC (Bld) 0.0 % Normal 0-5 [facility] Comment on above: Performed By: #### L 100.0100, L500.4050 #### [facility] [address] [place], [address] Erythrocyte distribution width (RBC) [Ratio] 13.0 % Normal 11.6-14.6 [facility] Comment on above: Performed By: #### L 100.0100, L500.4050 #### [facility] [address] [place], [address] Hematocrit (Bld) [Volume fraction] 47.8 % Normal 40-54 [facility] Comment on above: Performed By: #### L 100.0100, L500.4050 #### [facility] [address] [place], [address] Hemoglobin (Bld) [Mass/Vol] 16.3 g/dL Normal 13.0-16. 5 [facility] Comment on above: Performed By: #### L 100.0100, L500.4050 #### [facility] [address] [place], [address] IG% 0.400 Normal 0.0-0.9 [facility] Comment on above: Result Comment: IG% - Immature Granulocytes (promyelocytes, myelocytes and metamyelocytes) > 1% indicates that a LEFT SHIFT is Present. Performed By: #### L 100.0100, L500.4050 #### [facility] [address] [place], [address] Lymphocytes/100 WBC (Bld) 4.4 % Low 19-41 [facility] Comment on above: Performed By: #### L 100.0100, L500.4050 #### [facility] [address] [place], [address] MCH (RBC) [Entitic mass] 31.8 pg Normal 27.0-32.0 [facility] Comment on above: Performed By: #### L 100.0100, L500.4050 #### [facility] [address] [place], [address] MCHC (RBC) [Mass/Vol] 34.1 g/dL Normal 32-36 [facility] Comment on above: Performed By: #### L 100.0100, L500.4050 #### [facility] [address] [place], [address] MCV (RBC) [Entitic vol] 93.2 fL Normal 80-94 [facility] Comment on above: Performed By: #### L 100.0100, L500.4050 #### [facility] [address] [place], [address] Monocytes/100 WBC (Bld) 5.6 % Normal 0-10 [facility] Comment on above: Performed By: #### L 100.0100, L500.4050 #### [facility] [address] [place], [address] Neutrophils/100 WBC (Bld) 89.4 % High 47-70 [facility] Comment on above: Performed By: #### L 100.0100, L500.4050 #### [facility] [address] [place], [address] Nucleated RBC (Bld) [#/Vol] 0 10*3/uL Normal 0-5 [facility] Comment on above: Performed By: #### L 100.0100, L500.4050 #### [facility] [address] [place], [address] Platelet mean volume (Bld) [Entitic vol] 9.9 fL Normal 6.2-12.0 [facility] Comment on above: Performed By: #### L 100.0100, L500.4050 #### [facility] [address] [place], [address] Platelets (Bld) [#/Vol] 263 10*3/uL Normal 150-450 [facility] Comment on above: Performed By: #### L 100.0100, L500.4050 #### [facility] [address] [place], [address] RBC (Bld) [#/Vol] 5.13 10*6/uL Normal 4.6-6.2 [facility] Comment on above: Performed By: #### L 100.0100, L500.4050 #### [facility] [address] [place], [address] RDW SD 44.7 fl High 35.1-43.9 [facility] Comment on above: Performed By: #### L 100.0100, L500.4050 #### [facility] [address] [place], [address] WBC (Bld) [#/Vol] 20.9 10*3/uL High 4.4-11.0 [facility] Comment on above: Performed By: #### L 100.0100, L500.4050 #### [facility] [address] [place], [address] Absolute Lymph 1.65 X10 3/uL Normal 0.83-4.51 [facility] Comment on above: Performed By: #### L 300.4310, L503.6005, L300.3900, L501.2450, L500.2500, L500.3400, L100.0100 #### [facility] [address] [place], [address] Absolute Neut 17.0 X10 3/uL High 2.0-7.7 [facility] Comment on above: Performed By: #### L 300.4310, L503.6005, L300.3900, L501.2450, L500.2500, L500.3400, L100.0100 #### [facility] [address] [place], [address] Basophils/100 WBC (Bld) 0.2 % Normal 0-1 [facility] Comment on above: Performed By: #### L 300.4310, L503.6005, L300.3900, L501.2450, L500.2500, L500.3400, L100.0100 #### [facility] [address] [place], [address] Eosinophils/100 WBC (Bld) 0.0 % Normal 0-5 [facility] Comment on above: Performed By: #### L 300.4310, L503.6005, L300.3900, L501.2450, L500.2500, L500.3400, L100.0100 #### [facility] [address] [place], [address] Erythrocyte distribution width (RBC) [Ratio] 12.8 % Normal 11.6-14.6 [facility] Comment on above: Performed By: #### L 300.4310, L503.6005, L300.3900, L501.2450, L500.2500, L500.3400, L100.0100 #### [facility] [address] [place], [address] Hematocrit (Bld) [Volume fraction] 49.4 % Normal 40-54 [facility] Comment on above: Performed By: #### L 300.4310, L503.6005, L300.3900, L501.2450, L500.2500, L500.3400, L100.0100 #### [facility] [address] [place], [address] Hemoglobin (Bld) [Mass/Vol] 17.0 g/dL High 13.0-16. 5 [facility] Comment on above: Performed By: #### L 300.4310, L503.6005, L300.3900, L501.2450, L500.2500, L500.3400, L100.0100 #### [facility] [address] [place], [address] IG% 0.500 Normal 0.0-0.9 [facility] Comment on above: Result Comment: IG% - Immature Granulocytes (promyelocytes, myelocytes and metamyelocytes) > 1% indicates that a LEFT SHIFT is Present. Performed By: #### L 300.4310, L503.6005, L300.3900, L501.2450, L500.2500, L500.3400, L100.0100 #### [facility] [address] [place], [address] Lymphocytes/100 WBC (Bld) 8.3 % Low 19-41 [facility] Comment on above: Performed By: #### L 300.4310, L503.6005, L300.3900, L501.2450, L500.2500, L500.3400, L100.0100 #### [facility] [address] [place], [address] MCH (RBC) [Entitic mass] 31.5 pg Normal 27.0-32.0 [facility] Comment on above: Performed By: #### L 300.4310, L503.6005, L300.3900, L501.2450, L500.2500, L500.3400, L100.0100 #### [facility] [address] [place], [address] MCHC (RBC) [Mass/Vol] 34.4 g/dL Normal 32-36 [facility] Comment on above: Performed By: #### L 300.4310, L503.6005, L300.3900, L501.2450, L500.2500, L500.3400, L100.0100 #### [facility] [address] [place], [address] MCV (RBC) [Entitic vol] 91.7 fL Normal 80-94 [facility] Comment on above: Performed By: #### L 300.4310, L503.6005, L300.3900, L501.2450, L500.2500, L500.3400, L100.0100 #### [facility] [address] [place], [address] Monocytes/100 WBC (Bld) 5.6 % Normal 0-10 [facility] Comment on above: Performed By: #### L 300.4310, L503.6005, L300.3900, L501.2450, L500.2500, L500.3400, L100.0100 #### [facility] [address] [place], [address] Neutrophils/100 WBC (Bld) 85.4 % High 47-70 [facility] Comment on above: Performed By: #### L 300.4310, L503.6005, L300.3900, L501.2450, L500.2500, L500.3400, L100.0100 #### [facility] [address] [place], [address] Nucleated RBC (Bld) [#/Vol] 0 10*3/uL Normal 0-5 [facility] Comment on above: Performed By: #### L 300.4310, L503.6005, L300.3900, L501.2450, L500.2500, L500.3400, L100.0100 #### [facility] [address] [place], [address] Platelet mean volume (Bld) [Entitic vol] 10.4 fL Normal 6.2-12.0 [facility] Comment on above: Performed By: #### L 300.4310, L503.6005, L300.3900, L501.2450, L500.2500, L500.3400, L100.0100 #### [facility] [address] [place], [address] Platelets (Bld) [#/Vol] 360 10*3/uL Normal 150-450 [facility] Comment on above: Performed By: #### L 300.4310, L503.6005, L300.3900, L501.2450, L500.2500, L500.3400, L100.0100 #### [facility] [address] [place], [address] RBC (Bld) [#/Vol] 5.39 10*6/uL Normal 4.6-6.2 [facility] Comment on above: Performed By: #### L 300.4310, L503.6005, L300.3900, L501.2450, L500.2500, L500.3400, L100.0100 #### [facility] [address] [place], [address] RDW SD 43.2 fl Normal 35.1-43.9 [facility] Comment on above: Performed By: #### L 300.4310, L503.6005, L300.3900, L501.2450, L500.2500, L500.3400, L100.0100 #### [facility] [address] [place], [address] WBC (Bld) [#/Vol] 19.9 10*3/uL High 4.4-11.0 [facility] Comment on above: Performed By: #### L 300.4310, L503.6005, L300.3900, L501.2450, L500.2500, L500.3400, L100.0100 #### [facility] [address] [place], [address] Chest PA and Lateralon 05-31 Chest PA and Lateral [facility] [address] [place] [address] Chest PA and Lateral MR#: [id number] Acct: [id number] Name: AIMEE DUCKWORTH Rep #: [id number] : 1990 M 34 From: Chano Carnes PCP: Dr. Kamron Erickson MD Status: [facility] ER Study: Chest PA and Lateral Date of Exam: 05/31/25 Exam# [id number] Ordering Dr: Diomedes York DO PROCEDURE: CHEST PA AND LATERAL 05/30/2025 REASON FOR EXAM: ABD/CHEST PAIN TECHNIQUE: Procedure Code: RADCXR Modality: DX Procedure: CHEST PA AND LATERAL FINDINGS: No focal consolidation. No pleural effusion or pneumothorax. Cardiac silhouette is within normal limits. No acute fractures. RAD/Chest PA and Lateral IMPRESSION: No focal consolidations. Reading Location: [id number] CC: Dr. Kamron Erickson MD; Diomedes York DO Carriage Setter: Signed Normal [facility] Comprehensive Metabolic Prof ilon 05-31-2025 Albumin [Mass/Vol] 4.5 g/dL Normal 3.5-5.0 [facility] Comment on above: Performed By: #### L 100.0100, L500.4050 #### [facility] [address] [place], [address] Albumin/Globulin [Mass ratio] 1.8 {ratio} Normal 0.9-2.4 [facility] Comment on above: Performed By: #### L 100.0100, L500.4050 #### [facility] [address] [place], [address] ALK PHOS 80 U/L Normal 40-129 [facility] Comment on above: Performed By: #### L 100.0100, L500.4050 #### [facility] [address] [place], [address] ALT [Catalytic activity/Vol] 12 U/L Normal <=46 [facility] Comment on above: Performed By: #### L 100.0100, L500.4050 #### [facility] [address] [place], [address] AST [Catalytic activity/Vol] 17 U/L Normal <=37 [facility] Comment on above: Performed By: #### L 100.0100, L500.4050 #### [facility] [address] [place], [address] Bilirubin [Mass/Vol] 0.42 mg/dL Normal 0.00-1.30 [facility] Comment on above: Performed By: #### L 100.0100, L500.4050 #### [facility] [address] [place], [address] BUN/CRE 6.6 RATIO Low 10-20 [facility] Comment on above: Performed By: #### L 100.0100, L500.4050 #### [facility] [address] [place], [address] Calcium [Mass/Vol] 8.5 mg/dL Normal 7.6-11.0 [facility] Comment on above: Performed By: #### L 100.0100, L500.4050 #### [facility] [address] [place], [address] Chloride [Moles/Vol] 102 mmol/L Normal 98-108 [facility] Comment on above: Performed By: #### L 100.0100, L500.4050 #### [facility] [address] [place], [address] CO2 [Moles/Vol] 20.4 mmol/L Low 21.0-32.0 [facility] Comment on above: Performed By: #### L 100.0100, L500.4050 #### [facility] [address] [place], [address] Creatinine [Mass/Vol] 1.12 mg/dL Normal 0.70-1.20 [facility] Comment on above: Performed By: #### L 100.0100, L500.4050 #### [facility] [address] [place], [address] ECRCL 121.77 ml/min Normal 50-250 [facility] Comment on above: Performed By: #### L 100.0100, L500.4050 #### [facility] [address] [place], [address] GAP 18 High 5-15 [facility] Comment on above: Performed By: #### L 100.0100, L500.4050 #### [facility] [address] [place], [address] GFR/1.73 sq M.predicted among non-blacks MDRD (S/P/Bld) [Vol rate/Area] 88 mL/min/{1.73_m2} Normal >60 [facility] Comment on above: Result Comment: mL/m in/1.73m2 CKD-EPI Creatinine Equation (2020) Performed By: #### L 100.0100, L500.4050 #### [facility] [address] [place], [address] Globulin (S) [Mass/Vol] 2.6 g/dL Normal 2.2-4.2 [facility] Comment on above: Performed By: #### L 100.0100, L500.4050 #### [facility] [address] [place], [address] Glucose [Mass/Vol] 126 mg/dL High 70-99 [facility] Comment on above: Performed By: #### L 100.0100, L500.4050 #### [facility] [address] [place], [address] Potassium [Moles/Vol] 3.8 mmol/L Normal 3.3-5.1 [facility] Comment on above: Performed By: #### L 100.0100, L500.4050 #### [facility] [address] [place], [address] Sodium [Moles/Vol] 141 mmol/L Normal 133-145 [facility] Comment on above: Performed By: #### L 100.0100, L500.4050 #### [facility] [address] [place], [address] T PROT 7.1 g/dL Normal 5.9-8.4 [facility] Comment on above: Performed By: #### L 100.0100, L500.4050 #### [facility] [address] [place], [address] Urea nitrogen [Mass/Vol] 7 mg/dL Normal 4-19 [facility] Comment on above: Performed By: #### L 100.0100, L500.4050 #### [facility] [address] [place], [address] ENTERIC PATHOGEN PANEL STOOL on 05-31-2025 EP PANEL Normal Reference Ran ge = Not Detected Nucleic acid amplification test method Not detected for Campylobacter group, Salmonella species, Shigella species, Vibrio Group, Yersinia enterocolitica, EHEC (Shiga Toxin 1, Shiga Toxin 2), Norovirus Gl/Gll, and Rotavirus A. Other common stool pathogens are not detected on this panel include: Aeromonas/Plesiomonas or parasites. Order testing for these organisms separately if suspected. This is an amplified DNA test which makes it both specific and sensitive. CAMPYLOBACTER Not Detected Norovirus Not Detected Rotavirus Not Detected Salmonella Not Detected Shiga Toxin Not Detected Shigella sp. Not Detected VIBRIO Not Detected Yersinia Not Detected Normal [facility] Comment on above: Performed By: #### L 300.4310, L503.6005, L300.3900, L501.2450, L500.2500, L500.3400, L100.0100 #### [facility] [address] [place], [address] Emergency Department Summary on 05-31-2025 Emergency Department Summary [facility] Medical Records Department [address] [place] [address] Emergency Department Summary 05/31/25 MR#: [id number] Acct: [id number] Name: AIMEE DUCKWORTH Rep #: [id number] : 1990 34 From: Diomedes York DO PCP: Dr. Kamron Erickson MD Status:ADM [facility] Location: [address] History of Present Illness Chief Complaint: GI Bleed Informant: patient and parent Narrative Narrative: Patient is a 34-year-old male with past medical history of schizophrenia as well as anxiety and depression. He states he typically vapes THC daily. He reports that he has had 3 days of nausea vomiting and diarrhea. He denies any known sick contacts. He was seen in the ER earlier today and had blood work and a CT scan that showed intestinal thickening consistent with diarrheal illness. Reportedly after receiving multiple medications symptoms improved and he was discharged home. Patient states after returning home he has had recurrent bouts of nausea and vomiting and persistent diarrhea. He states he feels that there is discoloration or potential blood to the emesis. Therefore with return/worsening of symptoms he presents for evaluation [facility] Medical History Spinal stenosis Schizophrenia Depression Anxiety Smoker Schizophrenia Migraines Asthma Home Medications ???Medication ???Instructions ???Recorded ???Last Taken ???Type divalproex 500 mg tablet,delayed 1,000 mg PO BID 06/02/24 11/02/24 History release albuterol sulfate 90 mcg/actuation 1 - 2 puff inhalation Q4H PRN co ugh 11/02/24 Unknown History aerosol inhaler escitalopram oxalate 20 mg tablet 20 mg PO DAILY 11/02/24 11/02/24 History lorazepam 1 mg tablet 1 mg PO BID 11/02/24 Unknown Histo ry diclofenac sodium 75 mg 75 mg PO BID 04/21/25 Unknown Hist ory tablet,delayed release haloperidol 5 mg tablet 5 mg PO BID 04/21/25 Unknown Histo ry hydroxyzine HCl 50 mg tablet 50 mg PO TID 04/21/25 Unknown Hist ory promethazine 25 mg tablet 25 mg PO Q6H PRN nausea and Unknown Rx vomiting 7 days #30 tabs azelastine 137 mcg (0.1 %) nasal 2 spray intranasal DAILY 05/31/25 Unknown History spray bupropion HCl 100 mg tablet PO 05/31/25 Unknown History tizanidine 4 mg tablet 8 mg PO Q8H PRN PRN low back pain 05/31/25 Unknown History Allergy/AdvReac Type Severity Reaction Status Date / Time Sulfa (Sulfonamide Allergy Unknown Verified 05/31/25 00:41 Antibiotics) sulfisoxazole (From Allergy Hives Verified 05/31/25 00:41 Gantrisin) Social History household members: family Smoking Status: Current every day smoker tobacco type: cigarettes and e-cigarettes ROS ROS ED Constitutional Constitutional ED: Denies chills or fever(s) Eyes Eyes: Denies change in vision ENT ENT ED: Reports sore throat Cardiovascular Cardiovascular: Reports racing heartbeat; Denies chest pain Respiratory/Chest Respiratory/Chest: Denies cough or dyspnea Gastrointestinal Gastrointestinal: Reports abdominal pain, diarrhea, nausea and vomiting Genitourinary Genitourinary ED: Denies dysuria Musculoskeletal Musculoskeletal: Denies myalgias Integumentary Denies rash Neurologic Neurologic: Reports weakness; Denies headache(s) Hematologic/Lymphatic Hematologic/Lymphatic: Denies easy bleeding or easy bruising Allergic/Immunologic Allergic/Immunologic ED: Denies mouth swelling or tongue swelling EXAM Physical Exam Const Vital Signs: 05/31/25 00:42 05/31/25 00:46 05/31/25 01:46 Temperature 98.6 F 98.6 F 98.8 F Temperature Source Oral Axillary Axillary Pulse Rate 115 H 115 H 135 H Respiratory Rate 19 H 19 H 18 Blood Pressure 160/96 H 160/96 H 159/96 H Blood Pressure Mean 117 117 117 Pulse Ox 99 100 100 Oxygen Delivery Method Room Air Room Air 05/31/25 02:00 05/31/25 03:32 Temperature 98.8 F 98.8 F Temperature Source Oral Pulse Rate 145 H 127 H Respiratory Rate 18 18 Blood Pressure 138/81 H 141/99 H Blood Pressure Mean 100 113 Pulse Ox 100 97 Oxygen Delivery Method Room Air Positive well nourished, well developed and obese General Appearance ED: well developed; Negative for pallor Nutritional Appearance: obese HEENT Reports dry mucous membranes HEENT Narrative: Normocephalic atraumatic No tongue or lip swelling no oral lesions no airway edema or compromise; no secondary findings in the posterior pharynx to suggest infection No dried blood or active bleeding noted in the posterior pharynx Mouth ED: Yes dry mucous membranes Mouth: dry mucous membranes Eyes PERRL and EOMs intact bilaterally General Eye ED: Negative for pale conjunctiva or scleral icterus Neck supple Nec (more content not included)... Normal [facility] Lactic Acidon 05-31-2025 Lactate [Moles/Vol] 1.7 mmol/L Normal 0.0-2.0 [facility] Comment on above: Performed By: #### L 503.6005 #### [facility] [address] [place], [place], [id number] Lactate [Moles/Vol] 4.0 mmol/L Invalid Interpretation Code 0.0-2.0 [facility] Comment on above: Order Comment: Y Result Comment: Crit ical Result(s) Called at: 0146 by:??RAMYA HAVEN TO KIRILL MADDEN Results read back by same. Performed By: #### L 300.4310, L503.6005, L300.3900, L501.2450, L500.2500, L500.3400, L100.0100 #### [facility] [address] [place], [place], [id number] Lipaseon 05-31-2025 Lipase [Catalytic activity/Vol] 51 U/L Normal 13-75 [facility] Comment on above: Result Comment: Heavenly wolff note: LIPASE revised reference range effective 22. New Lipase methodology. Expected to produce lower values than the previous assay method. NEW Reference Range: 13 - 75 U/L Performed By: #### L 300.4310, L503.6005, L300.3900, L501.2450, L500.2500, L500.3400, L100.0100 #### [facility] [address] [place], [address] Liver Profileon 05-31-2025 Albumin [Mass/Vol] 4.7 g/dL Normal 3.5-5.0 [facility] Comment on above: Performed By: #### L 300.4310, L503.6005, L300.3900, L501.2450, L500.2500, L500.3400, L100.0100 #### [facility] [address] [place], [address] ALK PHOS 87 U/L Normal 40-129 [facility] Comment on above: Performed By: #### L 300.4310, L503.6005, L300.3900, L501.2450, L500.2500, L500.3400, L100.0100 #### [facility] [address] [place], [address] ALT [Catalytic activity/Vol] 12 U/L Normal <=46 [facility] Comment on above: Performed By: #### L 300.4310, L503.6005, L300.3900, L501.2450, L500.2500, L500.3400, L100.0100 #### [facility] [address] [place], [address] AST [Catalytic activity/Vol] 18 U/L Normal <=37 [facility] Comment on above: Performed By: #### L 300.4310, L503.6005, L300.3900, L501.2450, L500.2500, L500.3400, L100.0100 #### [facility] [address] [place], [address] Bilirubin [Mass/Vol] 0.39 mg/dL Normal 0.00-1.30 [facility] Comment on above: Performed By: #### L 300.4310, L503.6005, L300.3900, L501.2450, L500.2500, L500.3400, L100.0100 #### [facility] [address] [place], [address] Bilirubin.direct [Mass/Vol] 0.18 mg/dL Normal 0.00-0.3 0 [facility] Comment on above: Performed By: #### L 300.4310, L503.6005, L300.3900, L501.2450, L500.2500, L500.3400, L100.0100 #### [facility] [address] [place], [address] Globulin (S) [Mass/Vol] 2.6 g/dL Normal 2.2-4.2 [facility] Comment on above: Performed By: #### L 300.4310, L503.6005, L300.3900, L501.2450, L500.2500, L500.3400, L100.0100 #### [facility] [address] [place], [address] T PROT 7.4 g/dL Normal 5.9-8.4 [facility] Comment on above: Performed By: #### L 300.4310, L503.6005, L300.3900, L501.2450, L500.2500, L500.3400, L100.0100 #### [facility] [address] [place], [address] Partial Thromboplast Timeon 05-31-2025 aPTT Coag (Bld) [Time] 22.7 s Low 24.1-36.2 [facility] Comment on above: Performed By: #### L 300.4310, L503.6005, L300.3900, L501.2450, L500.2500, L500.3400, L100.0100 #### [facility] [address] [place], [address] Prothrombin Time w/INRon INR Coag (PPP) [Relative time] 1.0 {INR} Normal [facility] Comment on above: Performed By: #### L 300.4310, L503.6005, L300.3900, L501.2450, L500.2500, L500.3400, L100.0100 #### [facility] [address] [place], [address] PT Coag (PPP) [Time] 13.2 s Normal 11.7-14.9 [facility] Comment on above: Performed By: #### L 300.4310, L503.6005, L300.3900, L501.2450, L500.2500, L500.3400, L100.0100 #### [facility] [address] [place], [address] Abdomen/Pelvis W IV Cont ONL Yon 05-30-2025 Abdomen/Pelvis W IV Cont ONLY [facility] Services [address] [place] [address] Abdomen/Pelvis W IV Cont ONLY MR#: [id number] Acct: [id number] Name: AIMEE DUCKWORTH Rep #: [id number] : 1990 M 34 From: Saqib Shipley MD PCP: Dr. Kamron Erickson MD Status: REG ER Study: Abdomen/Pelvis W IV Cont ONLY Date of Exam: Exam# [id number] Ordering Dr: Berhane Adame MD PROCEDURE: ABDOMEN/PELVIS W IV CONT ONLY 05/30/2025 REASON FOR EXAM: NAUSEA VOMITING DIARRHEA PAIN TECHNIQUE: Procedure Code: CTABDPELIV Modality: CT Procedure: ABDOMEN/PELVIS W IV CONT ONLY Coronal and Sagittal reconstruction series were provided. One or more dose reduction techniques were used (e.g., Automated exposure control, adjustment of the mA and/or kV according to patient size, use of iterative reconstruction technique. COMPARISON: 04/21/2025. FINDINGS: The peripheral soft tissues unremarkable. The lung bases are clear. Degenerative changes of the spine. Normal caliber abdominal aorta. No suspicious lymphadenopathy. Hypodense liver indicating steatosis. The gallbladder, pancreas, spleen, and adrenals are unremarkable. Symmetric enhancement of the bilateral kidneys. Left kidney lower pole subcentimeter hypodense lesion which is too small to characterize. The urinary bladder is decompressed. The prostate is normal in size. Normal caliber large and small bowel without surrounding inflammatory changes. Normal caliber appendix without surrounding inflammatory changes. Fluid-filled loops of bowel which may represent diarrheal illness. The stomach is unremarkable. CT/Abdomen/Pelvis W IV Cont ONLY IMPRESSION: No acute abnormalities of the abdomen or pelvis. Fluid-filled loops of bowel which may represent diarrheal illness. Hepatic steatosis. Reading Location: [facility] CC: Dr. Berhane Adame MD; Dr. Kamron Erickson MD Carriage Setter: Signed Normal [facility] CBC W/Diff, Automatedon 10-2 PLT EST ADEQUATE Normal ADEQ [facility] Comment on above: Performed By: #### L 300.4310, L503.6005, L300.3900, L501.2450, L500.2500, L500.3400, L100.0100 #### [facility] [address] [place], [place], [id number] SMEAR COMMENT SCANNED Normal [facility] Comment on above: Performed By: #### L 300.4310, L503.6005, L300.3900, L501.2450, L500.2500, L500.3400, L100.0100 #### [facility] [address] [place], [address] Comprehensive Metabolic Prof ilon 05-30-2025 Albumin [Mass/Vol] 5.0 g/dL Normal 3.5-5.0 [facility] Comment on above: Performed By: #### L 300.4310, L503.6005, L300.3900, L501.2450, L500.2500, L500.3400, L100.0100 #### [facility] [address] [place], [address] Albumin/Globulin [Mass ratio] 1.8 {ratio} Normal 0.9-2.4 [facility] Comment on above: Performed By: #### L 300.4310, L503.6005, L300.3900, L501.2450, L500.2500, L500.3400, L100.0100 #### [facility] [address] [place], [address] ALK PHOS 94 U/L Normal 40-129 [facility] Comment on above: Performed By: #### L 300.4310, L503.6005, L300.3900, L501.2450, L500.2500, L500.3400, L100.0100 #### [facility] [address] [place], [address] ALT [Catalytic activity/Vol] 15 U/L Normal <=46 [facility] Comment on above: Performed By: #### L 300.4310, L503.6005, L300.3900, L501.2450, L500.2500, L500.3400, L100.0100 #### [facility] [address] [place], [address] AST [Catalytic activity/Vol] 21 U/L Normal <=37 [facility] Comment on above: Performed By: #### L 300.4310, L503.6005, L300.3900, L501.2450, L500.2500, L500.3400, L100.0100 #### [facility] [address] [place], [address] Bilirubin [Mass/Vol] 0.57 mg/dL Normal 0.00-1.30 [facility] Comment on above: Performed By: #### L 300.4310, L503.6005, L300.3900, L501.2450, L500.2500, L500.3400, L100.0100 #### [facility] [address] [place], [address] BUN/CRE 6.8 RATIO Low 10-20 [facility] Comment on above: Performed By: #### L 300.4310, L503.6005, L300.3900, L501.2450, L500.2500, L500.3400, L100.0100 #### [facility] [address] [place], [address] Calcium [Mass/Vol] 9.9 mg/dL Normal 7.6-11.0 [facility] Comment on above: Performed By: #### L 300.4310, L503.6005, L300.3900, L501.2450, L500.2500, L500.3400, L100.0100 #### [facility] [address] [place], [address] Chloride [Moles/Vol] 99 mmol/L Normal 98-108 [facility] Comment on above: Performed By: #### L 300.4310, L503.6005, L300.3900, L501.2450, L500.2500, L500.3400, L100.0100 #### [facility] [address] [place], [address] CO2 [Moles/Vol] 24.3 mmol/L Normal 21.0-32.0 [facility] Comment on above: Performed By: #### L 300.4310, L503.6005, L300.3900, L501.2450, L500.2500, L500.3400, L100.0100 #### [facility] [address] [place], [place], [address] Creatinine [Mass/Vol] 1.31 mg/dL High 0.70-1.20 [facility] Comment on above: Performed By: #### L 300.4310, L503.6005, L300.3900, L501.2450, L500.2500, L500.3400, L100.0100 #### [facility] [address] [place], [place], [id number] ([address]) ECRCL 105.14 ml/min Normal 50-250 [facility] Comment on above: Performed By: #### L 300.4310, L503.6005, L300.3900, L501.2450, L500.2500, L500.3400, L100.0100 #### [facility] [address] [place], [address] GAP 18 High 5-15 [facility] Comment on above: Performed By: #### L 300.4310, L503.6005, L300.3900, L501.2450, L500.2500, L500.3400, L100.0100 #### [facility] [address] [place], [place], [address] GFR/1.73 sq M.predicted among non-blacks MDRD (S/P/Bld) [Vol rate/Area] 73 mL/min/{1.73_m2} Normal >60 [facility] Comment on above: Result Comment: mL/m in/1.73m2 CKD-EPI Creatinine Equation (2020) Performed By: #### L 300.4310, L503.6005, L300.3900, L501.2450, L500.2500, L500.3400, L100.0100 #### [facility] [address] [place], [address] Globulin (S) [Mass/Vol] 2.9 g/dL Normal 2.2-4.2 [facility] Comment on above: Performed By: #### L 300.4310, L503.6005, L300.3900, L501.2450, L500.2500, L500.3400, L100.0100 #### [facility] [address] [place], [address] Glucose [Mass/Vol] 120 mg/dL High 70-99 [facility] Comment on above: Performed By: #### L 300.4310, L503.6005, L300.3900, L501.2450, L500.2500, L500.3400, L100.0100 #### [facility] [address] [place], [address] Potassium [Moles/Vol] 3.4 mmol/L Normal 3.3-5.1 [facility] Comment on above: Performed By: #### L 300.4310, L503.6005, L300.3900, L501.2450, L500.2500, L500.3400, L100.0100 #### [facility] [address] [place], [address] Sodium [Moles/Vol] 141 mmol/L Normal 133-145 [facility] Comment on above: Performed By: #### L 300.4310, L503.6005, L300.3900, L501.2450, L500.2500, L500.3400, L100.0100 #### [facility] [address] [place], [address] T PROT 7.9 g/dL Normal 5.9-8.4 [facility] Comment on above: Performed By: #### L 300.4310, L503.6005, L300.3900, L501.2450, L500.2500, L500.3400, L100.0100 #### [facility] [address] [place], [address] Urea nitrogen [Mass/Vol] 9 mg/dL Normal 4-19 [facility] Comment on above: Performed By: #### L 300.4310, L503.6005, L300.3900, L501.2450, L500.2500, L500.3400, L100.0100 #### [facility] [address] [place], [address] Emergency Department Summary on 05-30-2025 Emergency Department Summary [facility] Medical Records Department [address] [place] [address] Emergency Department Summary 05/30/25 MR#: [id number] Acct: [id number] Name: AIMEE DUCKWORTH Rep #: [id number] : 1990 34 From: Berhane Adame MD PCP: Dr. Kamron Erickson MD Status:REG ER Location: ED HPI History of Present Illness Chief Complaint: Nausea/Vomiting/Diarrh ea Narrative Narrative: 34-year-old male presents with nausea, vomiting, and diarrhea that has had for the last 3 days. He states that he has had subjective fever as well. In the last 24 hours he has had at least 5-6 episodes of vomiting with perhaps a few blood streaks in it. He is having watery stool as well. He describes more left lower quadrant abdominal pain. No exacerbating or alleviating factors. He feels dehydrated and weak. He does admit to smoking marijuana as well. Of note, he relates history that he was diagnosed by a rotary cutter feeder with stomach carcinoma, but has not done anything about it. He states this was found on endoscopy 3 to 4 years ago. He is currently not undergoing any treatment. [facility] Medical History Spinal stenosis Schizophrenia Depression Anxiety [...] Unknown Rx vomiting 7 days #30 tabs promethazine 25 mg tablet 25 mg PO Q6H PRN PRN Nausea #20 Unknown Rx TABLETS Allergy/AdvReac Type Severity Reaction Status Date / Time Sulfa (Sulfonamide Allergy Unknown Verified 05/30/25 16:58 Antibiotics) sulfisoxazole (From Allergy Hives Verified 05/30/25 16:58 Gantrisin) Family History no significant family his Social History household members: family Smoking Status: Current every day smoker tobacco type: cigarettes and e-cigarettes ROS ROS ED ROS Narrative Review of systems is positive for nausea, vomiting, diarrhea, subjective fever. Positive left lower quadrant abdominal pain. No exacerbating or alleviating factors. Small blood streaks in emesis reportedly. Positive watery stool multiple times within the last 24 hours. EXAM Physical Exam Narrative Exam Narrative: Afebrile. Vital signs noted. Nontoxic-appearing. Cardiovascular examination reveals regular tachycardia. Lungs clear to auscultation bilaterally. Abdomen is soft with mild tenderness to palpation in the left lower quadrant. No guarding or rebound. Positive bowel sounds. Neurological examination nonfocal, nonlateralizing. Const Vital Signs: 05/30/25 16:58 05/30/25 17:00 05/30/25 18:58 Temperature 98.1 F 98.1 F Temperature Source Oral Oral Pulse Rate 113 H 113 H 85 Respiratory Rate 16 16 18 Blood Pressure 143/118 H 143/118 H 127/85 H Blood Pressure Mean 126 126 99 Pulse Ox 100 100 100 Oxygen Delivery Method Room Air Room Air Room Air 05/30/25 20:00 05/30/25 20:19 Temperature 98.1 F Temperature Source Pulse Rate 89 89 Respiratory Rate 18 18 Blood Pressure 100/57 L 100/57 L Blood Pressure Mean 71 71 Pulse Ox 97 97 Oxygen Delivery Method Room Air MDM MDM MDM Narrative Medical decision making narrative: Differential diagnosis includes but not limited to gastroenteritis versus pancreatitis versus cannabis induced hyperemesis. He may have dehydration or other electrolyte abnormality. He will be bolused normal saline IV 1 L and administered ondansetron. I do feel CT imaging is indicated. Protocol labs were already ordere (more content not included)... Normal [facility] Lipaseon 05-30-2025 Lipase [Catalytic activity/Vol] 33 U/L Normal 13-75 [facility] Comment on above: Result Comment: Heavenly wolff note: LIPASE revised reference range effective 22. New Lipase methodology. Expected to produce lower values than the previous assay method. NEW Reference Range: 13 - 75 U/L Performed By: #### L 300.4310, L503.6005, L300.3900, L501.2450, L500.2500, L500.3400, L100.0100 #### [facility] [address] [place], [place], [id number] Urinalysis, Completeon 05-30 BACTERIA 1+ /hpf Normal None Seen [facility] Comment on above: Order Comment: COLLE CTOR TO SPECIFY Performed By: #### L 300.4310, L503.6005, L300.3900, L501.2450, L500.2500, L500.3400, L100.0100 #### [facility] [address] [place], [address] RBC 0-5 SEEN Normal 0-5 [facility] Comment on above: Order Comment: CIPRIANO CTOR TO SPECIFY Performed By: #### L 300.4310, L503.6005, L300.3900, L501.2450, L500.2500, L500.3400, L100.0100 #### [facility] [address] [place], [address] WBC 5-10 SEEN Normal 0-5 [facility] Comment on above: Order Comment: CIPRIANO CTOR TO SPECIFY Performed By: #### L 300.4310, L503.6005, L300.3900, L501.2450, L500.2500, L500.3400, L100.0100 #### [facility] [address] [place], [address] EPI,SQUAMOUS 0 SEEN Normal 0-5 [facility] Comment on above: Order Comment: CIPRIANO CTOR TO SPECIFY Performed By: #### L 300.4310, L503.6005, L300.3900, L501.2450, L500.2500, L500.3400, L100.0100 #### [facility] [address] [place], [address] Mucus Ql (Urine sed) 0 SEEN Normal [facility] Comment on above: Order Comment: COLLE CTOR TO SPECIFY Performed By: #### L 300.4310, L503.6005, L300.3900, L501.2450, L500.2500, L500.3400, L100.0100 #### [facility] [address] [place], [address] Absolute lymphocyte countOrd ered By: Rodriguez Beavers on 04-22-2025 Lymphocytes Auto (Unsp spec) [#/Vol] 2.83 10*3/uL 0.83-4.51 [facility] Absolute neutrophil countOrd ered By: Rodriguez Beavers on 04-22-2025 Neutrophils (Bld) [#/Vol] 10.4 10*3/uL High 2.0-7.7 [facility] Anion gap in Serum or Plasma Ordered By: Rodriguez Beavers on 04-22-2025 Anion gap [Moles/Vol] 17 mmol/L High 5-15 [facility] Automated lymphocyte count a s percentage of total leukocytesOrdered By: Rodriguez Beavers on 04-22-2025 Lymphocytes/100 WBC Auto (Unsp spec) 19.5 % - [facility] BUN/creatinine ratioOrdered By: Rodriguez Beavers on 04-22-2025 Urea nitrogen/Creatinine [Mass ratio] 13.1 mg/mg 10- [facility] Basophil percentageOrdered B y: Rodriguez Beavers on 04-22-2025 Basophils/100 WBC (Bld) 0.4 % 0-1 [facility] Bilirubin Test strip Ql (U)O rdered By: Rodriguez Beavers on 04-22-2025 Bilirubin Ql (U) 1 mg/dL High Negative [facility] Comment on above: COLOR OF URINE MAY A FFECT DIPSTICK RESULTS. Bilirubin, totalOrdered By: Rodriguez Beavers on 04-22-2025 Bilirubin [Mass/Vol] 0.42 mg/dL 0.00-1.30 [facility] CBC W/Diff, Automatedon 04-04 Absolute Lymph 2.83 X10 3/uL Normal 0.83-4.51 [facility] Comment on above: Performed By: #### L 300.4310, L503.6005, L300.3900, L501.2450, L500.2500, L500.3400, L100.0100 #### [facility] [address] [place], [place], [address] Absolute Neut 10.4 X10 3/uL High 2.0-7.7 [facility] Comment on above: Performed By: #### L 300.4310, L503.6005, L300.3900, L501.2450, L500.2500, L500.3400, L100.0100 #### [facility] [address] [place], [address] Basophils/100 WBC (Bld) 0.4 % Normal 0-1 [facility] Comment on above: Performed By: #### L 300.4310, L503.6005, L300.3900, L501.2450, L500.2500, L500.3400, L100.0100 #### [facility] [address] [place], [address] Eosinophils/100 WBC (Bld) 0.3 % Normal 0-5 [facility] Comment on above: Performed By: #### L 300.4310, L503.6005, L300.3900, L501.2450, L500.2500, L500.3400, L100.0100 #### [facility] [address] [place], [address] Erythrocyte distribution width (RBC) [Ratio] 12.5 % Normal 11.6-14.6 [facility] Comment on above: Performed By: #### L 300.4310, L503.6005, L300.3900, L501.2450, L500.2500, L500.3400, L100.0100 #### [facility] [address] [place], [address] Hematocrit (Bld) [Volume fraction] 46.0 % Normal 40-54 [facility] Comment on above: Performed By: #### L 300.4310, L503.6005, L300.3900, L501.2450, L500.2500, L500.3400, L100.0100 #### [facility] [address] [place], [address] Hemoglobin (Bld) [Mass/Vol] 15.5 g/dL Normal 13.0-16. 5 [facility] Comment on above: Performed By: #### L 300.4310, L503.6005, L300.3900, L501.2450, L500.2500, L500.3400, L100.0100 #### [facility] [address] [place], [address] IG% 0.500 Normal 0.0-0.9 [facility] Comment on above: Result Comment: IG% - Immature Granulocytes (promyelocytes, myelocytes and metamyelocytes) > 1% indicates that a LEFT SHIFT is Present. Performed By: #### L 300.4310, L503.6005, L300.3900, L501.2450, L500.2500, L500.3400, L100.0100 #### [facility] [address] [place], [address] Lymphocytes/100 WBC (Bld) 19.5 % Normal 19-41 [facility] Comment on above: Performed By: #### L 300.4310, L503.6005, L300.3900, L501.2450, L500.2500, L500.3400, L100.0100 #### [facility] [address] [place], [address] MCH (RBC) [Entitic mass] 31.6 pg Normal 27.0-32.0 [facility] Comment on above: Performed By: #### L 300.4310, L503.6005, L300.3900, L501.2450, L500.2500, L500.3400, L100.0100 #### [facility] [address] [facility] [place], [address] MCHC (RBC) [Mass/Vol] 33.7 g/dL Normal 32-36 [facility] Comment on above: Performed By: #### L 300.4310, L503.6005, L300.3900, L501.2450, L500.2500, L500.3400, L100.0100 #### [facility] [address] [place], [address] MCV (RBC) [Entitic vol] 93.7 fL Normal 80-94 [facility] Comment on above: Performed By: #### L 300.4310, L503.6005, L300.3900, L501.2450, L500.2500, L500.3400, L100.0100 #### [facility] [address] [place], [address] Monocytes/100 WBC (Bld) 7.8 % Normal 0-10 [facility] Comment on above: Performed By: #### L 300.4310, L503.6005, L300.3900, L501.2450, L500.2500, L500.3400, L100.0100 #### [facility] [address] [place], [address] Neutrophils/100 WBC (Bld) 71.5 % High 47-70 [facility] Comment on above: Performed By: #### L 300.4310, L503.6005, L300.3900, L501.2450, L500.2500, L500.3400, L100.0100 #### [facility] [address] [place], [address] Nucleated RBC (Bld) [#/Vol] 0 10*3/uL Normal 0-5 [facility] Comment on above: Performed By: #### L 300.4310, L503.6005, L300.3900, L501.2450, L500.2500, L500.3400, L100.0100 #### [facility] [address] [place], [address] Platelet mean volume (Bld) [Entitic vol] 9.9 fL Normal 6.2-12.0 [facility] Comment on above: Performed By: #### L 300.4310, L503.6005, L300.3900, L501.2450, L500.2500, L500.3400, L100.0100 #### [facility] [address] [place], [address] Platelets (Bld) [#/Vol] 273 10*3/uL Normal 150-450 [facility] Comment on above: Performed By: #### L 300.4310, L503.6005, L300.3900, L501.2450, L500.2500, L500.3400, L100.0100 #### [facility] [address] [place], [address] RBC (Bld) [#/Vol] 4.91 10*6/uL Normal 4.6-6.2 [facility] Comment on above: Performed By: #### L 300.4310, L503.6005, L300.3900, L501.2450, L500.2500, L500.3400, L100.0100 #### [facility] [address] [place], [address] RDW SD 43.3 fl Normal 35.1-43.9 [facility] Comment on above: Performed By: #### L 300.4310, L503.6005, L300.3900, L501.2450, L500.2500, L500.3400, L100.0100 #### [facility] [address] [place], [address] WBC (Bld) [#/Vol] 14.6 10*3/uL High 4.4-11.0 [facility] Comment on above: Performed By: #### L 300.4310, L503.6005, L300.3900, L501.2450, L500.2500, L500.3400, L100.0100 #### [facility] [address] [place], [address] Carbon dioxide, total [Moles /volume] in Central venous bloodOrdered By: Rordiguez Nimesh on 04-22-2025 CO2 [Moles/Vol] 30.5 mmol/L 21.0-32.0 [facility] Chloride assayOrdered By: Fer ha Fullerrus on 04-22-2025 Chloride [Moles/Vol] 93 mmol/L Low 98-108 [facility] Comprehensive Metabolic Prof ilon 04-22-2025 Albumin [Mass/Vol] 4.2 g/dL Normal 3.5-5.0 [facility] Comment on above: Performed By: #### L 300.4310, L503.6005, L300.3900, L501.2450, L500.2500, L500.3400, L100.0100 #### [facility] [address] [place], [address] Albumin/Globulin [Mass ratio] 1.7 {ratio} Normal 0.9-2.4 [facility] Comment on above: Performed By: #### L 300.4310, L503.6005, L300.3900, L501.2450, L500.2500, L500.3400, L100.0100 #### [facility] [address] [place], [address] ALK PHOS 67 U/L Normal 40-129 [facility] Comment on above: Performed By: #### L 300.4310, L503.6005, L300.3900, L501.2450, L500.2500, L500.3400, L100.0100 #### [facility] [address] [place], [address] ALT [Catalytic activity/Vol] 10 U/L Normal <=46 [facility] Comment on above: Performed By: #### L 300.4310, L503.6005, L300.3900, L501.2450, L500.2500, L500.3400, L100.0100 #### [facility] [address] [place], [address] AST [Catalytic activity/Vol] 12 U/L Normal <=37 [facility] Comment on above: Performed By: #### L 300.4310, L503.6005, L300.3900, L501.2450, L500.2500, L500.3400, L100.0100 #### [facility] [address] [place], [address] Bilirubin [Mass/Vol] 0.42 mg/dL Normal 0.00-1.30 [facility] Comment on above: Performed By: #### L 300.4310, L503.6005, L300.3900, L501.2450, L500.2500, L500.3400, L100.0100 #### [facility] [address] [place], [address] BUN/CRE 13.1 RATIO Normal 10-20 [facility] Comment on above: Performed By: #### L 300.4310, L503.6005, L300.3900, L501.2450, L500.2500, L500.3400, L100.0100 #### [facility] [address] [place], [address] Calcium [Mass/Vol] 8.9 mg/dL Normal 7.6-11.0 [facility] Comment on above: Performed By: #### L 300.4310, L503.6005, L300.3900, L501.2450, L500.2500, L500.3400, L100.0100 #### [facility] [address] [place], [address] Chloride [Moles/Vol] 93 mmol/L Low 98-108 [facility] Comment on above: Performed By: #### L 300.4310, L503.6005, L300.3900, L501.2450, L500.2500, L500.3400, L100.0100 #### [facility] [address] [place], [address] CO2 [Moles/Vol] 30.5 mmol/L Normal 21.0-32.0 [facility] Comment on above: Performed By: #### L 300.4310, L503.6005, L300.3900, L501.2450, L500.2500, L500.3400, L100.0100 #### [facility] [address] [place], [address] Creatinine [Mass/Vol] 1.30 mg/dL High 0.70-1.20 [facility] Comment on above: Performed By: #### L 300.4310, L503.6005, L300.3900, L501.2450, L500.2500, L500.3400, L100.0100 #### [facility] [address] [place], [place], [id number] (744) ECRCL 106.18 ml/min Normal 50-250 [facility] Comment on above: Performed By: #### L 300.4310, L503.6005, L300.3900, L501.2450, L500.2500, L500.3400, L100.0100 #### [facility] [address] [place], [place], [id number] (981) GAP 17 High 5-15 [facility] Comment on above: Performed By: #### L 300.4310, L503.6005, L300.3900, L501.2450, L500.2500, L500.3400, L100.0100 #### [facility] [address] [place], [place], [id number] (986 GFR/1.73 sq M.predicted among non-blacks MDRD (S/P/Bld) [Vol rate/Area] 74 mL/min/{1.73_m2} Normal >60 [facility] Comment on above: Result Comment: mL/m in/1.73m2 CKD-EPI Creatinine Equation (2020) Performed By: #### L 300.4310, L503.6005, L300.3900, L501.2450, L500.2500, L500.3400, L100.0100 #### [facility] [address] [place], [address] Globulin (S) [Mass/Vol] 2.4 g/dL Normal 2.2-4.2 [facility] Comment on above: Performed By: #### L 300.4310, L503.6005, L300.3900, L501.2450, L500.2500, L500.3400, L100.0100 #### [facility] [address] [place], [address] Glucose [Mass/Vol] 135 mg/dL High 70-99 [facility] Comment on above: Performed By: #### L 300.4310, L503.6005, L300.3900, L501.2450, L500.2500, L500.3400, L100.0100 #### [facility] [address] [place], [address] Potassium [Moles/Vol] 2.6 mmol/L Invalid Interpretation Code 3.3-5.1 [facility] Comment on above: Result Comment: Crit ical Result(s) Called at: 0902 04/22/2025 by: YASMINE SOLANO??Results read back by same. Performed By: #### L 300.4310, L503.6005, L300.3900, L501.2450, L500.2500, L500.3400, L100.0100 #### [facility] [address] [place], [address] Sodium [Moles/Vol] 140 mmol/L Normal 133-145 [facility] Comment on above: Performed By: #### L 300.4310, L503.6005, L300.3900, L501.2450, L500.2500, L500.3400, L100.0100 #### [facility] [address] [place], [address] T PROT 6.7 g/dL Normal 5.9-8.4 [facility] Comment on above: Performed By: #### L 300.4310, L503.6005, L300.3900, L501.2450, L500.2500, L500.3400, L100.0100 #### [facility] [address] [place], [address] Urea nitrogen [Mass/Vol] 17 mg/dL Normal 4-19 [facility] Comment on above: Performed By: #### L 300.4310, L503.6005, L300.3900, L501.2450, L500.2500, L500.3400, L100.0100 #### [facility] [address] [facility] [place], [address] Emergency Department Summary on 04-22-2025 Emergency Department Summary [facility] Medical Records Department [address] [place] [address] Emergency Department Summary 04/22/25 MR#: [id number] Acct: [id number] Name: AIMEE DUCKWORTH Rep #: [id number] : 1990 34 From: Rodriguez Beavers DO PCP: Dr. Kamron Erickson MD Status:DEP ER Location: ED HPI History of Present Illness Chief Complaint: Abd Pain [facility] Medical History Spinal stenosis Schizophrenia Depression Anxiety Smoker Schizophrenia Migraines Asthma Home Medications ???Medication ???Instructions ???Recorded ???Last Taken ???Type divalproex 500 mg tablet,delayed 1,000 mg PO BID 06/02/24 11/02/24 History release albuterol sulfate 90 mcg/actuation 1 - 2 puff inhalation Q4H [facility]N [facility] 11/02/24 Unknown History aerosol inhaler bupropion [...] Social det (more content not included)... Normal [facility] Eosinophil percentageOrdered By: Rodriguez Beavers on 04-22-2025 Eosinophils/100 WBC (Bld) 0.3 % 0-5 [facility] Erythrocyte distribution wid th ratioOrdered By: Rodriguez Beavers on 04-22-2025 Erythrocyte distribution width (RBC) [Ratio] 12.5 % 11.6-14.6 [facility] Erythrocyte distribution wid th standard deviationOrdered By: Rodriguez Beavers on 04-22-2025 Erythrocyte distribution width (RBC) [Ratio] 43.3 fl 35.1-43.9 [facility] Glomerular filtration rate ( GFR) estimation/1.73 sq m using serum, plasma, or whole bOrdered By: Rodriguez Beavers on 04-22-2025 GFR/1.73 sq M.predicted among non-blacks MDRD (S/P/Bld) [Vol rate/Area] 74 mL/min/{1.73_m2} >60 [facility] Comment on above: mL/min/1.73m2 CKD-EP I Creatinine Equation (2020) Hematocrit Auto (Bld) [Volum e fraction]Ordered By: Rodriguez Beavers on 04-22-2025 Hematocrit (Bld) [Volume fraction] 46.0 % 40-54 [facility] Hemoglobin measurementOrdere d By: Rodriguez Beavers on 04-22-2025 Hemoglobin (Bld) [Mass/Vol] 15.5 g/dL 13.0-16. 5 [facility] Immature granulocytes/100 WB C Auto (Bld)Ordered By: Rodriguez Beavers on 04-22-2025 Immature granulocytes/100 WBC (Bld) 0.500 % 0.0-0.9 [facility] Comment on above: IG% - Immature Granu locytes (promyelocytes, myelocytes and metamyelocytes) > 1% indicates that a LEFT SHIFT is Present. Ketones Test strip Ql (U)Ord ered By: Rodriguez Beavers on 04-22-2025 Ketones Ql (U) 150 mg/dl Negative [facility] Comment on above: CRITICAL VALUE *H Laboratory - Chemistry and C hemistry - challengeOrdered By: Rodriguez Beavers on 04-22-2025 AST [Catalytic activity/Vol] 12 U/L <38 [facility] Lipaseon 04-22-2025 Lipase [Catalytic activity/Vol] 37 U/L Normal 13-75 [facility] Comment on above: Result Comment: Heavenly wolff note: LIPASE revised reference range effective 22. New Lipase methodology. Expected to produce lower values than the previous assay method. NEW Reference Range: 13 - 75 U/L Performed By: #### L 300.4310, L503.6005, L300.3900, L501.2450, L500.2500, L500.3400, L100.0100 #### [facility] [place], [address] Lipase measurementOrdered By : Rodriguez Beavers on 04-22-2025 Lipase [Catalytic activity/Vol] 37 U/L 13-75 [facility] Comment on above: Please note:LIPASE r evised reference range effective 22. New Lipase methodology. Expected to produce lower values than the previous assay method. NEW Reference Range: 13 - 75 U/L MCV (mean corpuscular volume ) determinationOrdered By: Rodriguez Beavers on 04-22-2025 MCV (RBC) [Entitic vol] 93.7 fL 80-94 [facility] Mean corpuscular hemoglobin (MCH) determinationOrdered By: Rodriguez Beavers on 04-22-2025 MCH (RBC) [Entitic mass] 31.6 pg 27.0-32.0 [facility] Mean corpuscular hemoglobin concentration (MCHC) determinationOrdered By: Rodriguez Beavers on 04-22-2025 MCHC (RBC) [Mass/Vol] 33.7 g/dL 32-36 [facility] Mean platelet volume determi nationOrdered By: Rodriguez Beavers on 04-22-2025 Platelet mean volume (Bld) [Entitic vol] 9.9 fL 6.2-12.0 [facility] Microscopic analysis of urin e for red blood cells (RBC)Ordered By: Rodriguez Beavers on 04-22-2025 Microscopic analysis of urine for red blood cells (RBC) 0 SEEN /hpf 0-5 [facility] Monocyte percentageOrdered B y: Rodriguez Beavers on 04-22-2025 Monocytes/100 WBC (Bld) 7.8 % 0-10 [facility] Mucus LM Ql (Urine sed)Order ed By: Rodriguez Beavers on 04-22-2025 Mucus Ql (Urine sed) 1+ /hpf [facility] Neutrophil percentageOrdered By: Rodriguez Beavers on 04-22-2025 Neutrophils/100 WBC (Bld) 71.5 % High 47-70 [facility] Nitrite Test strip Ql (U)Ord ered By: Rodriguez Beavers on 04-22-2025 Nitrite Ql (U) Negative Negative [facility] Nucleated red blood cell per centageOrdered By: Rodriguez Beavers on 04-22-2025 Nucleated RBC/100 WBC (Bld) [Ratio] 0 % 0-5 [facility] Platelet countOrdered By: Fer Beavers on 04-22-2025 Platelets (Bld) [#/Vol] 273 10*3/uL 150-450 [facility] Potassium measurement (mass/ volume)Ordered By: Rodriguez Beavers on 04-22-2025 Potassium (Unsp spec) [Mass/Vol] 2.6 mmol/L Critically low 3.3-5.1 [facility] Comment on above: Critical Result(s) C alled at: 0902 04/22/2025 by: YASMINE SOLANO Results read back by same. Protein Test strip Ql (U)Ord ered By: Rodriguez Beavers on 04-22-2025 Protein Ql (U) 100 mg/dl High Negative [facility] RBC Auto (Bld) [#/Vol]Ordere d By: Rodriguez Beavers on 04-22-2025 RBC (Bld) [#/Vol] 4.91 10*6/uL 4.6-6.2 [facility] Serum creatinine measurement (mass/volume)Ordered By: Rodriguez Beavers on 04-22-2025 Creatinine [Mass/Vol] 1.30 mg/dL High 0.70-1.20 [facility] Serum globulin measurementOr dered By: Rodriguez Beavers on 04-22-2025 Globulin (S) [Mass/Vol] 2.4 g/dL 2.2-4.2 [facility] Serum glucose measurement (m ass/volume)Ordered By: Rodriguez Beavers on 04-22-2025 Glucose [Mass/Vol] 135 mg/dL High 70-99 [facility] Serum or plasma alanine comer otransferase (ALT) measurementOrdered By: Rodriguez Beavers on 04-22-2025 ALT [Catalytic activity/Vol] 10 U/L <47 [facility] Serum or plasma albumin mauro urement (mass/volume)Ordered By: Rodriguez Beavers on 04-22-2025 Albumin [Mass/Vol] 4.2 g/dL 3.5-5.0 [facility] Serum or plasma albumin/glob ulin mass ratioOrdered By: Rodriguez Beavers on 04-22-2025 Albumin/Globulin [Mass ratio] 1.7 {ratio} 0.9-2.4 [facility] Serum or plasma alkaline fatuma sphatase measurementOrdered By: Rodriguez Beavers on 04-22-2025 ALP [Catalytic activity/Vol] 67 U/L 40-129 [facility] Serum or plasma calcium mauro urement (mass/volume)Ordered By: Rodriguez Beavers on 04-22-2025 Calcium [Mass/Vol] 8.9 mg/dL 7.6-11.0 [facility] Serum or plasma urea nitroge n measurement (mass/volume)Ordered By: Rodriguez Beavers on 04-22-2025 Urea nitrogen [Mass/Vol] 17 mg/dL 4-19 [facility] Sodium levelOrdered By: Melony Beavers on 04-22-2025 Sodium [Moles/Vol] 140 mmol/L 133-145 [facility] Squamous epithelial cells de tection in urine sediment by light microscopyOrdered By: Rodriguez Beavers on 04-22-2025 Epithelial cells.squamous LM Ql (Urine sed) 0 SEEN /hpf 0-5 [facility] Total proteinOrdered By: Isac Beavers on 04-22-2025 Protein [Mass/Vol] 6.7 g/dL 5.9-8.4 [facility] Urinalysis, Completeon 04-22 Mucus Ql (Urine sed) 1+ /hpf Normal [facility] Comment on above: Order Comment: CRITI RICARDA VALUE CALLED TO YASMINE SOLANO04/22/25 0920 Mary Carmen Jay.RESULTS READ BACK BY SAME.DIRECT MARKETING REPRESENTATIVE TO SPECIFY Performed By: #### L 300.4310, L503.6005, L300.3900, L501.2450, L500.2500, L500.3400, L100.0100 #### [facility] [address] [place], [place], [id number] WBC 5-10 SEEN Normal 0-5 [facility] Comment on above: Order Comment: CRITI RICARDA VALUE CALLED TO YASMINE SOLANO04/22/2520 Mary Carmen Jay.RESULTS READ BACK BY SAME.DIRECT MARKETING REPRESENTATIVE TO SPECIFY Performed By: #### L 300.4310, L503.6005, L300.3900, L501.2450, L500.2500, L500.3400, L100.0100 #### [facility] [address] [place], [address] BACTERIA 0 SEEN Normal None Seen [facility] Comment on above: Order Comment: CRITI RICARDA VALUE CALLED TO YASMINE SOLANO04/22/25 Mary Carmen Jay.RESULTS READ BACK BY SAME.DIRECT MARKETING REPRESENTATIVE TO SPECIFY Performed By: #### L 300.4310, L503.6005, L300.3900, L501.2450, L500.2500, L500.3400, L100.0100 #### [facility] [address] [place], [address] EPI,SQUAMOUS 0 SEEN Normal 0-5 [facility] Comment on above: Order Comment: CRITI RICARDA VALUE CALLED TO YASMINE [facility]04/22/25919 Mary Carmen Jay.RESULTS READ BACK BY SAME.DIRECT MARKETING REPRESENTATIVE TO SPECIFY Performed By: #### L 300.4310, L503.6005, L300.3900, L501.2450, L500.2500, L500.3400, L100.0100 #### [facility] [address] [place], [place], [id number] (405) RBC 0 SEEN Normal 0-5 [facility] Comment on above: Order Comment: CRITI RICARDA VALUE CALLED TO YASMINE [facility]04/22/2520 Mary Carmen Jay.RESULTS READ BACK BY SAME.DIRECT MARKETING REPRESENTATIVE TO SPECIFY Performed By: #### L 300.4310, L503.6005, L300.3900, L501.2450, L500.2500, L500.3400, L100.0100 #### [facility] [address] [place], [address] Urine clarityOrdered By: Isac Beavers on 04-22-2025 Clarity (U) Clear Clear [facility] Urine color determinationOrd ered By: Rodriguez Beavers on 04-22-2025 Color (U) Yellow Yellow [facility] Urine glucose detectionOrder ed By: Rodriguez Beavers on 04-22-2025 Glucose Ql (U) Normal mg/dl Normal [facility] Urine leukocyte esterase det ection by dipstickOrdered By: Rodriguez Beavers on 04-22-2025 Leukocyte esterase Test strip Ql (U) 25 /ul High Negative [facility] Urine pHOrdered By: Rodriguez walker on 04-22-2025 pH (U) 6.5 [pH] 5.0 - 8.0 [facility] Urine sediment bacteria coun t by microscopy (number/high power field)Ordered By: Rodriguez Beavers on 04-22-2025 Bacteria LM.HPF (Urine sed) [#/Area] 0 /[HPF] None Seen [facility] Urine specific gravity measu rementOrdered By: Rodriguez Beavers on 04-22-2025 Specific gravity (U) [Rel density] 1.015 1.002-1.03 0 [facility] Urine urobilinogen measureme ntOrdered By: Rodriguez Beavers on 04-22-2025 Urobilinogen Ql (U) 4 mg/dl High Normal [facility] White blood cell (WBC) count Ordered By: Rodriguez Beavers on 04-22-2025 WBC (Bld) [#/Vol] 14.6 10*3/uL High 4.4-11.0 [facility] White blood cell countOrdere d By: Rodriguez Beavers on 04-22-2025 White blood cell count 5-10 SEEN /hpf 0-5 [facility] Abdomen/Pelvis W IV Cont ONL Yon 04-21-2025 Abdomen/Pelvis W IV Cont ONLY [facility] Imaging Services [address] [place], [place] [id number] Abdomen/Pelvis W IV Cont ONLY MR#: [id number] Acct: [id number] Name: AIMEE DUCKWORTH Rep #: [id number] : 1990 M 34 From: Murphy henderson MD PCP: Dr. Kamron Erickson MD Status: REG ER Study: Abdomen/Pelvis W IV Cont ONLY Date of Exam: Exam# [id number] Ordering Dr: Diomedes York DO PROCEDURE: ABDOMEN/PELVIS [...] pneumatosis coli. Mild diffuse spondylosis. Reading Location: [place] [address] CC: Dr. Kamron Erickson MD; Diomedes York DO Carriage Setter: Signed Normal [facility] Absolute lymphocyte countOrd ered By: Diomedes York on 04-21-2025 Lymphocytes Auto (Unsp spec) [#/Vol] 1.75 10*3/uL 0.83-4.51 [facility] Absolute neutrophil countOrd ered By: Diomedes York on 04-21-2025 Neutrophils (Bld) [#/Vol] 11.4 10*3/uL High 2.0-7.7 [facility] Anion gap in Serum or Plasma Ordered By: Diomedes York on 04-21-2025 Anion gap [Moles/Vol] 17 mmol/L High 5-15 [facility] Automated lymphocyte count a s percentage of total leukocytesOrdered By: Diomedes York on 04-21-2025 Lymphocytes/100 WBC Auto (Unsp spec) 12.5 % Low 19-41 [facility] BUN/creatinine ratioOrdered By: Diomedes York on 04-21-2025 Urea nitrogen/Creatinine [Mass ratio] 7.2 mg/mg Low 10-20 [facility] Basic Metabolic Profile (BMP )on 04-21-2025 BUN/CRE 7.2 RATIO Low 10-20 [facility] Comment on above: Performed By: #### L 300.4310, L503.6005, L300.3900, L501.2450, L500.2500, L500.3400, L100.0100 #### [facility] [address] [place], [address] Calcium [Mass/Vol] 9.4 mg/dL Normal 7.6-11.0 [facility] Comment on above: Performed By: #### L 300.4310, L503.6005, L300.3900, L501.2450, L500.2500, L500.3400, L100.0100 #### [facility] [address] [place], [address] Chloride [Moles/Vol] 104 mmol/L Normal 98-108 [facility] Comment on above: Performed By: #### L 300.4310, L503.6005, L300.3900, L501.2450, L500.2500, L500.3400, L100.0100 #### [facility] [address] [place], [address] CO2 [Moles/Vol] 23.4 mmol/L Normal 21.0-32.0 [facility] Comment on above: Performed By: #### L 300.4310, L503.6005, L300.3900, L501.2450, L500.2500, L500.3400, L100.0100 #### [facility] [address] [place], [address] Creatinine [Mass/Vol] 1.44 mg/dL High 0.70-1.20 [facility] Comment on above: Performed By: #### L 300.4310, L503.6005, L300.3900, L501.2450, L500.2500, L500.3400, L100.0100 #### [facility] [address] [place], [place], [id number] ([address] ECRCL 96.43 ml/min Normal 50-250 [facility] Comment on above: Performed By: #### L 300.4310, L503.6005, L300.3900, L501.2450, L500.2500, L500.3400, L100.0100 #### [facility] [address] [place], [address] GAP 17 High 5-15 [facility] Comment on above: Performed By: #### L 300.4310, L503.6005, L300.3900, L501.2450, L500.2500, L500.3400, L100.0100 #### [facility] [address] [place], [address] GFR/1.73 sq M.predicted among non-blacks MDRD (S/P/Bld) [Vol rate/Area] 65 mL/min/{1.73_m2} Normal >60 [facility] Comment on above: Result Comment: mL/m in/1.73m2 CKD-EPI Creatinine Equation (2020) Performed By: #### L 300.4310, L503.6005, L300.3900, L501.2450, L500.2500, L500.3400, L100.0100 #### [facility] [address] [place], [address] Glucose [Mass/Vol] 125 mg/dL High 70-99 [facility] Comment on above: Performed By: #### L 300.4310, L503.6005, L300.3900, L501.2450, L500.2500, L500.3400, L100.0100 #### [facility] [address] [place], [address] Potassium [Moles/Vol] 3.9 mmol/L Normal 3.3-5.1 [facility] Comment on above: Performed By: #### L 300.4310, L503.6005, L300.3900, L501.2450, L500.2500, L500.3400, L100.0100 #### [facility] [address] [place], [address] Sodium [Moles/Vol] 144 mmol/L Normal 133-145 [facility] Comment on above: Performed By: #### L 300.4310, L503.6005, L300.3900, L501.2450, L500.2500, L500.3400, L100.0100 #### [facility] [address] [place], [address] Urea nitrogen [Mass/Vol] 10 mg/dL Normal 4-19 [facility] Comment on above: Performed By: #### L 300.4310, L503.6005, L300.3900, L501.2450, L500.2500, L500.3400, L100.0100 #### [facility] [address] [place], [address] Basophil percentageOrdered B y: Diomedes York on 04-21-2025 Basophils/100 WBC (Bld) 0.4 % 0-1 [facility] Bilirubin directOrdered By: Diomedes York on 04-21-2025 Bilirubin.direct [Mass/Vol] 0.18 mg/dL 0.00-0.3 0 [facility] Bilirubin, totalOrdered By: Diomedes York on 04-21-2025 Bilirubin [Mass/Vol] 0.42 mg/dL 0.00-1.30 [facility] CBC W/Diff, Automatedon 04-04 Absolute Lymph 1.75 X10 3/uL Normal 0.83-4.51 [facility] Comment on above: Performed By: #### L 300.4310, L503.6005, L300.3900, L501.2450, L500.2500, L500.3400, L100.0100 #### [facility] [address] [place], [address] Absolute Neut 11.4 X10 3/uL High 2.0-7.7 [facility] Comment on above: Performed By: #### L 300.4310, L503.6005, L300.3900, L501.2450, L500.2500, L500.3400, L100.0100 #### [facility] [address] [place], [address] Basophils/100 WBC (Bld) 0.4 % Normal 0-1 [facility] Comment on above: Performed By: #### L 300.4310, L503.6005, L300.3900, L501.2450, L500.2500, L500.3400, L100.0100 #### [facility] [address] [place], [address] Eosinophils/100 WBC (Bld) 0.2 % Normal 0-5 [facility] Comment on above: Performed By: #### L 300.4310, L503.6005, L300.3900, L501.2450, L500.2500, L500.3400, L100.0100 #### [facility] [address] [place], [address] Erythrocyte distribution width (RBC) [Ratio] 12.3 % Normal 11.6-14.6 [facility] Comment on above: Performed By: #### L 300.4310, L503.6005, L300.3900, L501.2450, L500.2500, L500.3400, L100.0100 #### [facility] [address] [place], [address] Hematocrit (Bld) [Volume fraction] 48.7 % Normal 40-54 [facility] Comment on above: Performed By: #### L 300.4310, L503.6005, L300.3900, L501.2450, L500.2500, L500.3400, L100.0100 #### [facility] [address] [place], [address] Hemoglobin (Bld) [Mass/Vol] 16.4 g/dL Normal 13.0-16. 5 [facility] Comment on above: Performed By: #### L 300.4310, L503.6005, L300.3900, L501.2450, L500.2500, L500.3400, L100.0100 #### [facility] [address] [place], [address] IG% 0.400 Normal 0.0-0.9 [facility] Comment on above: Result Comment: IG% - Immature Granulocytes (promyelocytes, myelocytes and metamyelocytes) > 1% indicates that a LEFT SHIFT is Present. Performed By: #### L 300.4310, L503.6005, L300.3900, L501.2450, L500.2500, L500.3400, L100.0100 #### [facility] [address] [place], [address] Lymphocytes/100 WBC (Bld) 12.5 % Low 19-41 [facility] Comment on above: Performed By: #### L 300.4310, L503.6005, L300.3900, L501.2450, L500.2500, L500.3400, L100.0100 #### [facility] [address] [place], [address] MCH (RBC) [Entitic mass] 31.5 pg Normal 27.0-32.0 [facility] Comment on above: Performed By: #### L 300.4310, L503.6005, L300.3900, L501.2450, L500.2500, L500.3400, L100.0100 #### [facility] [address] [place], [address] MCHC (RBC) [Mass/Vol] 33.7 g/dL Normal 32-36 [facility] Comment on above: Performed By: #### L 300.4310, L503.6005, L300.3900, L501.2450, L500.2500, L500.3400, L100.0100 #### [facility] [address] [place], [address] MCV (RBC) [Entitic vol] 93.7 fL Normal 80-94 [facility] Comment on above: Performed By: #### L 300.4310, L503.6005, L300.3900, L501.2450, L500.2500, L500.3400, L100.0100 #### [facility] [address] [place], [address] Monocytes/100 WBC (Bld) 5.4 % Normal 0-10 [facility] Comment on above: Performed By: #### L 300.4310, L503.6005, L300.3900, L501.2450, L500.2500, L500.3400, L100.0100 #### [facility] [address] [place], [address] Neutrophils/100 WBC (Bld) 81.1 % High 47-70 [facility] Comment on above: Performed By: #### L 300.4310, L503.6005, L300.3900, L501.2450, L500.2500, L500.3400, L100.0100 #### [facility] [address] [place], [address] Nucleated RBC (Bld) [#/Vol] 0 10*3/uL Normal 0-5 [facility] Comment on above: Performed By: #### L 300.4310, L503.6005, L300.3900, L501.2450, L500.2500, L500.3400, L100.0100 #### [facility] [address] [place], [address] Platelet mean volume (Bld) [Entitic vol] 9.9 fL Normal 6.2-12.0 [facility] Comment on above: Performed By: #### L 300.4310, L503.6005, L300.3900, L501.2450, L500.2500, L500.3400, L100.0100 #### [facility] [address] [place], [address] Platelets (Bld) [#/Vol] 372 10*3/uL Normal 150-450 [facility] Comment on above: Performed By: #### L 300.4310, L503.6005, L300.3900, L501.2450, L500.2500, L500.3400, L100.0100 #### [facility] [address] [place], [address] RBC (Bld) [#/Vol] 5.20 10*6/uL Normal 4.6-6.2 [facility] Comment on above: Performed By: #### L 300.4310, L503.6005, L300.3900, L501.2450, L500.2500, L500.3400, L100.0100 #### [facility] [address] [place], [address] RDW SD 42.9 fl Normal 35.1-43.9 [facility] Comment on above: Performed By: #### L 300.4310, L503.6005, L300.3900, L501.2450, L500.2500, L500.3400, L100.0100 #### [facility] [address] [place], [address] WBC (Bld) [#/Vol] 14.0 10*3/uL High 4.4-11.0 [facility] Comment on above: Performed By: #### L 300.4310, L503.6005, L300.3900, L501.2450, L500.2500, L500.3400, L100.0100 #### [facility] [address] [place], [address] Carbon dioxide, total [Moles /volume] in Central venous bloodOrdered By: Diomedes York on 04-21-2025 CO2 [Moles/Vol] 23.4 mmol/L 21.0-32.0 [facility] Chloride assayOrdered By: Violet York on 04-21-2025 Chloride [Moles/Vol] 104 mmol/L 98-108 [facility] Emergency Department Summary on 04-21-2025 Emergency Department Summary [facility] Medical Records Department [address] [place] [address] Emergency Department Summary 04/21/25 MR#: [id number] Acct: [id number] Name: DONITAAIMEEMeghan LINTON Rep #: [id number] : 1990 34 From: Diomedes York DO [...] secondary to this he presents for evaluation. [facility] Medical History Spinal stenosis Schizophrenia Depression Anxiety [...] soft Extr (more content not included)... Normal [facility] Eosinophil percentageOrdered By: Diomedes York on 04-21-2025 Eosinophils/100 WBC (Bld) 0.2 % 0-5 [facility] Erythrocyte distribution wid th ratioOrdered By: Diomedes York on 04-21-2025 Erythrocyte distribution width (RBC) [Ratio] 12.3 % 11.6-14.6 [facility] Erythrocyte distribution wid th standard deviationOrdered By: Diomedes York on 04-21-2025 Erythrocyte distribution width (RBC) [Ratio] 42.9 fl 35.1-43.9 [facility] Glomerular filtration rate ( GFR) estimation/1.73 sq m using serum, plasma, or whole bOrdered By: Diomedes York on 04-21-2025 GFR/1.73 sq M.predicted among non-blacks MDRD (S/P/Bld) [Vol rate/Area] 65 mL/min/{1.73_m2} >60 [facility] Comment on above: mL/min/1.73m2 CKD-EP I Creatinine Equation (2020) Hematocrit Auto (Bld) [Volum e fraction]Ordered By: Diomedes York on 04-21-2025 Hematocrit (Bld) [Volume fraction] 48.7 % 40-54 [facility] Hemoglobin measurementOrdere d By: Diomedes York on 04-21-2025 Hemoglobin (Bld) [Mass/Vol] 16.4 g/dL 13.0-16. 5 [facility] Immature granulocytes/100 WB C Auto (Bld)Ordered By: Diomedes York on 04-21-2025 Immature granulocytes/100 WBC (Bld) 0.400 % 0.0-0.9 [facility] Comment on above: IG% - Immature Granu locytes (promyelocytes, myelocytes and metamyelocytes) > 1% indicates that a LEFT SHIFT is Present. Laboratory - Chemistry and C hemistry - challengeOrdered By: Diomedes York on 04-21-2025 AST [Catalytic activity/Vol] 14 U/L <38 [facility] Lipaseon 04-21-2025 Lipase [Catalytic activity/Vol] 27 U/L Normal 13-75 [facility] Comment on above: Result Comment: Heavenly wolff note: LIPASE revised reference range effective 22. New Lipase methodology. Expected to produce lower values than the previous assay method. NEW Reference Range: 13 - 75 U/L Performed By: #### L 300.4310, L503.6005, L300.3900, L501.2450, L500.2500, L500.3400, L100.0100 #### [facility] [address] [place], [address] Lipase measurementOrdered By : Diomedes York on 04-21-2025 Lipase [Catalytic activity/Vol] 27 U/L [facility] Comment on above: Please note:LIPASE r evised reference range effective 22. New Lipase methodology. Expected to produce lower values than the previous assay method. NEW Reference Range: 13 - 75 U/L Liver Profileon 04-21-2025 Albumin [Mass/Vol] 4.5 g/dL Normal 3.5-5.0 [facility] Comment on above: Performed By: #### L 300.4310, L503.6005, L300.3900, L501.2450, L500.2500, L500.3400, L100.0100 #### [facility] [address] [place], [address] ALK PHOS 77 U/L Normal 40-129 [facility] Comment on above: Performed By: #### L 300.4310, L503.6005, L300.3900, L501.2450, L500.2500, L500.3400, L100.0100 #### [facility] [address] [place], [address] ALT [Catalytic activity/Vol] 12 U/L Normal <=46 [facility] Comment on above: Performed By: #### L 300.4310, L503.6005, L300.3900, L501.2450, L500.2500, L500.3400, L100.0100 #### [facility] [address] [place], [address] AST [Catalytic activity/Vol] 14 U/L Normal <=37 [facility] Comment on above: Performed By: #### L 300.4310, L503.6005, L300.3900, L501.2450, L500.2500, L500.3400, L100.0100 #### [facility] [address] [place], [address] Bilirubin [Mass/Vol] 0.42 mg/dL Normal 0.00-1.30 [facility] Comment on above: Performed By: #### L 300.4310, L503.6005, L300.3900, L501.2450, L500.2500, L500.3400, L100.0100 #### [facility] [address] [place], [address] Bilirubin.direct [Mass/Vol] 0.18 mg/dL Normal 0.00-0.3 0 [facility] Comment on above: Performed By: #### L 300.4310, L503.6005, L300.3900, L501.2450, L500.2500, L500.3400, L100.0100 #### [facility] [address] [place], [address] Globulin (S) [Mass/Vol] 2.7 g/dL Normal 2.2-4.2 [facility] Comment on above: Performed By: #### L 300.4310, L503.6005, L300.3900, L501.2450, L500.2500, L500.3400, L100.0100 #### [facility] [address] [place], [address] T PROT 7.2 g/dL Normal 5.9-8.4 [facility] Comment on above: Performed By: #### L 300.4310, L503.6005, L300.3900, L501.2450, L500.2500, L500.3400, L100.0100 #### [facility] [place], [address] MCV (mean corpuscular volume ) determinationOrdered By: Diomedes York on 04-21-2025 MCV (RBC) [Entitic vol] 93.7 fL 80-94 [facility] Mean corpuscular hemoglobin (MCH) determinationOrdered By: Diomedes York on 04-21-2025 MCH (RBC) [Entitic mass] 31.5 pg 27.0-32.0 [facility] Mean corpuscular hemoglobin concentration (MCHC) determinationOrdered By: Diomedes York on 04-21-2025 MCHC (RBC) [Mass/Vol] 33.7 g/dL 32-36 [facility] Mean platelet volume determi nationOrdered By: Diomedes York on 04-21-2025 Platelet mean volume (Bld) [Entitic vol] 9.9 fL 6.2-12.0 [facility] Monocyte percentageOrdered B y: Diomedes York on 04-21-2025 Monocytes/100 WBC (Bld) 5.4 % 0-10 [facility] Neutrophil percentageOrdered By: Diomedes York on 04-21-2025 Neutrophils/100 WBC (Bld) 81.1 % High 47-70 [facility] Nucleated red blood cell per centageOrdered By: Diomedes York on 04-21-2025 Nucleated RBC/100 WBC (Bld) [Ratio] 0 % 0-5 [facility] Platelet countOrdered By: Violet York on 04-21-2025 Platelets (Bld) [#/Vol] 372 10*3/uL 150-450 [facility] Potassium measurement (mass/ volume)Ordered By: Diomedes York on 04-21-2025 Potassium (Unsp spec) [Mass/Vol] 3.9 mmol/L 3.3-5.1 [facility] RBC Auto (Bld) [#/Vol]Ordere d By: Diomedes York on 04-21-2025 RBC (Bld) [#/Vol] 5.20 10*6/uL 4.6-6.2 [facility] Serum creatinine measurement (mass/volume)Ordered By: Diomedes York on 04-21-2025 Creatinine [Mass/Vol] 1.44 mg/dL High 0.70-1.20 [facility] Serum globulin measurementOr dered By: Diomedes York on 04-21-2025 Globulin (S) [Mass/Vol] 2.7 g/dL 2.2-4.2 [facility] Serum glucose measurement (m ass/volume)Ordered By: Diomedes York on 04-21-2025 Glucose [Mass/Vol] 125 mg/dL High 70-99 [facility] Serum or plasma alanine comer otransferase (ALT) measurementOrdered By: Diomedes York on 04-21-2025 ALT [Catalytic activity/Vol] 12 U/L <47 [facility] Serum or plasma albumin mauro urement (mass/volume)Ordered By: Diomedes York on 04-21-2025 Albumin [Mass/Vol] 4.5 g/dL 3.5-5.0 [facility] Serum or plasma alkaline fatuma sphatase measurementOrdered By: Diomedes York on 04-21-2025 ALP [Catalytic activity/Vol] 77 U/L 40-129 [facility] Serum or plasma calcium mauro urement (mass/volume)Ordered By: Diomedes York on 04-21-2025 Calcium [Mass/Vol] 9.4 mg/dL 7.6-11.0 [facility] Serum or plasma urea nitroge n measurement (mass/volume)Ordered By: Diomedes York on 04-21-2025 Urea nitrogen [Mass/Vol] 10 mg/dL 4-19 [facility] Sodium levelOrdered By: Gordo York on 04-21-2025 Sodium [Moles/Vol] 144 mmol/L 133-145 [facility] Total proteinOrdered By: Luis York on 04-21-2025 Protein [Mass/Vol] 7.2 g/dL 5.9-8.4 [facility] White blood cell (WBC) count Ordered By: Diomedes York on 04-21-2025 WBC (Bld) [#/Vol] 14.0 10*3/uL High 4.4-11.0 [facility] 12 Lead EKGon 11-03-2024 12 Lead EKG [facility] Services [address] [place] [address] 12 Lead EKG 11/03/24 0504 MR#: [id number] Acct: [id number] Name: AIMEE DUCKWORTH Rep #: [id number] : 1990 34 From: Manuel Kim MD [...] rhythm Normal ECG Confirmed by Manuel Kim ([id number]), restaurant expeditor JANELL RIVERA ([id number]) on 11/03/2024 7:58:31 AM Referred By: LORI Confirmed By: Manuel Kim 11/03/24 0758 Date Manuel Kim MD CC: Dr. Román Sandoval MD; Dr. Kamron Erickson MD Signed Normal [facility] Absolute neutrophil countOrd ered By: Román Sandoval on 11-03-2024 Neutrophils (Bld) [#/Vol] 3.8 10*3/uL 2.0-7.7 [facility] Anion gap in Serum or Plasma Ordered By: Román Sandoval on 11-03-2024 Anion gap [Moles/Vol] 8 mmol/L 5-15 [facility] BUN/creatinine ratioOrdered By: Román Sandoval on 11-03-2024 Urea nitrogen/Creatinine [Mass ratio] 6.6 mg/mg Low 10-20 [facility] Basophil percentageOrdered B y: Román Sandoval on 11-03-2024 Basophils/100 WBC (Bld) 0.3 % 0-1 [facility] Bilirubin, totalOrdered By: Román Sandoval on 11-03-2024 Bilirubin [Mass/Vol] 0.16 mg/dL 0.00-1.30 [facility] CBC W/Diff, Automatedon Absolute Lymph 1.14 X10 3/uL Normal 0.83-4.51 [facility] Comment on above: Performed By: #### L 300.4310, L503.6005, L300.3900, L501.2450, L500.2500, L500.3400, L100.0100 #### [facility] [address] [place], [address] Absolute Neut 3.8 X10 3/uL Normal 2.0-7.7 [facility] Comment on above: Performed By: #### L 300.4310, L503.6005, L300.3900, L501.2450, L500.2500, L500.3400, L100.0100 #### [facility] [address] [place], [address] Basophils/100 WBC (Bld) 0.3 % Normal 0-1 [facility] Comment on above: Performed By: #### L 300.4310, L503.6005, L300.3900, L501.2450, L500.2500, L500.3400, L100.0100 #### [facility] [address] [place], [address] Eosinophils/100 WBC (Bld) 0.5 % Normal 0-5 [facility] Comment on above: Performed By: #### L 300.4310, L503.6005, L300.3900, L501.2450, L500.2500, L500.3400, L100.0100 #### [facility] [address] [place], [address] Erythrocyte distribution width (RBC) [Ratio] 13.8 % Normal 11.6-14.6 [facility] Comment on above: Performed By: #### L 300.4310, L503.6005, L300.3900, L501.2450, L500.2500, L500.3400, L100.0100 #### [facility] [address] [place], [address] Hematocrit (Bld) [Volume fraction] 38.0 % Low 40-54 [facility] Comment on above: Performed By: #### L 300.4310, L503.6005, L300.3900, L501.2450, L500.2500, L500.3400, L100.0100 #### [facility] [address] [place], [address] Hemoglobin (Bld) [Mass/Vol] 12.6 g/dL Low 13.0-16. 5 [facility] Comment on above: Performed By: #### L 300.4310, L503.6005, L300.3900, L501.2450, L500.2500, L500.3400, L100.0100 #### [facility] [address] [place], [address] IG% 0.500 Normal 0.0-0.9 [facility] Comment on above: Result Comment: IG% - Immature Granulocytes (promyelocytes, myelocytes and metamyelocytes) > 1% indicates that a LEFT SHIFT is Present. Performed By: #### L 300.4310, L503.6005, L300.3900, L501.2450, L500.2500, L500.3400, L100.0100 #### [facility] [address] [place], [address] Lymphocytes/100 WBC (Bld) 19.2 % Normal 19-41 [facility] Comment on above: Performed By: #### L 300.4310, L503.6005, L300.3900, L501.2450, L500.2500, L500.3400, L100.0100 #### [facility] [address] [place], [address] MCH (RBC) [Entitic mass] 31.2 pg Normal 27.0-32.0 [facility] Comment on above: Performed By: #### L 300.4310, L503.6005, L300.3900, L501.2450, L500.2500, L500.3400, L100.0100 #### [facility] [address] [place], [address] MCHC (RBC) [Mass/Vol] 33.2 g/dL Normal 32-36 [facility] Comment on above: Performed By: #### L 300.4310, L503.6005, L300.3900, L501.2450, L500.2500, L500.3400, L100.0100 #### [facility] [address] [place], [address] MCV (RBC) [Entitic vol] 94.1 fL High 80-94 [facility] Comment on above: Performed By: #### L 300.4310, L503.6005, L300.3900, L501.2450, L500.2500, L500.3400, L100.0100 #### [facility] [address] [place], [address] Monocytes/100 WBC (Bld) 16.0 % High 0-10 [facility] Comment on above: Performed By: #### L 300.4310, L503.6005, L300.3900, L501.2450, L500.2500, L500.3400, L100.0100 #### [facility] [address] [place], [address] Neutrophils/100 WBC (Bld) 63.5 % Normal 47-70 [facility] Comment on above: Performed By: #### L 300.4310, L503.6005, L300.3900, L501.2450, L500.2500, L500.3400, L100.0100 #### [facility] [address] [place], [address] Nucleated RBC (Bld) [#/Vol] 0 10*3/uL Normal 0-5 [facility] Comment on above: Performed By: #### L 300.4310, L503.6005, L300.3900, L501.2450, L500.2500, L500.3400, L100.0100 #### [facility] [address] [place], [address] Platelet mean volume (Bld) [Entitic vol] 9.6 fL Normal 6.2-12.0 [facility] Comment on above: Performed By: #### L 300.4310, L503.6005, L300.3900, L501.2450, L500.2500, L500.3400, L100.0100 #### [facility] [address] [place], [address] Platelets (Bld) [#/Vol] 172 10*3/uL Normal 150-450 [facility] Comment on above: Performed By: #### L 300.4310, L503.6005, L300.3900, L501.2450, L500.2500, L500.3400, L100.0100 #### [facility] [address] [place], [address] RBC (Bld) [#/Vol] 4.04 10*6/uL Low 4.6-6.2 [facility] Comment on above: Performed By: #### L 300.4310, L503.6005, L300.3900, L501.2450, L500.2500, L500.3400, L100.0100 #### [facility] [address] [place], [address] RDW SD 48.2 fl High 35.1-43.9 [facility] Comment on above: Performed By: #### L 300.4310, L503.6005, L300.3900, L501.2450, L500.2500, L500.3400, L100.0100 #### [facility] [address] [place], [address] WBC (Bld) [#/Vol] 5.9 10*3/uL Normal 4.4-11.0 [facility] Comment on above: Performed By: #### L 300.4310, L503.6005, L300.3900, L501.2450, L500.2500, L500.3400, L100.0100 #### [facility] [address] [place], [address] Carbon dioxide, total [Moles /volume] in Central venous bloodOrdered By: Román Sandoval on 11-03-2024 CO2 [Moles/Vol] 24.6 mmol/L 21.0-32.0 [facility] Chloride assayOrdered By: Huy Sandoval on 11-03-2024 Chloride [Moles/Vol] 104 mmol/L 98-108 [facility] Comprehensive Metabolic Prof ilon 11-03-2024 Albumin [Mass/Vol] 3.6 g/dL Normal 3.5-5.0 [facility] Comment on above: Performed By: #### L 300.4310, L503.6005, L300.3900, L501.2450, L500.2500, L500.3400, L100.0100 #### [facility] [address] [place], [address] Albumin/Globulin [Mass ratio] 1.9 {ratio} Normal 0.9-2.4 [facility] Comment on above: Performed By: #### L 300.4310, L503.6005, L300.3900, L501.2450, L500.2500, L500.3400, L100.0100 #### [facility] [address] [place], [address] ALK PHOS 66 U/L Normal 40-129 [facility] Comment on above: Performed By: #### L 300.4310, L503.6005, L300.3900, L501.2450, L500.2500, L500.3400, L100.0100 #### [facility] [address] [place], [place], [id number] ALT [Catalytic activity/Vol] 19 U/L Normal <=46 [facility] Comment on above: Performed By: #### L 300.4310, L503.6005, L300.3900, L501.2450, L500.2500, L500.3400, L100.0100 #### [facility] [address] [place], [place], [id number] [phone] AST [Catalytic activity/Vol] 22 U/L Normal <=37 [facility] Comment on above: Performed By: #### L 300.4310, L503.6005, L300.3900, L501.2450, L500.2500, L500.3400, L100.0100 #### [facility] [address] [place], [place], [id number] Bilirubin [Mass/Vol] 0.16 mg/dL Normal 0.00-1.30 [facility] Comment on above: Performed By: #### L 300.4310, L503.6005, L300.3900, L501.2450, L500.2500, L500.3400, L100.0100 #### [facility] [address] [place], [place], [phone] (597) BUN/CRE 6.6 RATIO Low 10-20 [facility] Comment on above: Performed By: #### L 300.4310, L503.6005, L300.3900, L501.2450, L500.2500, L500.3400, L100.0100 #### [facility] [address] [place], [address] Calcium [Mass/Vol] 7.8 mg/dL Normal 7.6-11.0 [facility] Comment on above: Performed By: #### L 300.4310, L503.6005, L300.3900, L501.2450, L500.2500, L500.3400, L100.0100 #### [facility] [address] [place], [address] Chloride [Moles/Vol] 104 mmol/L Normal 98-108 [facility] Comment on above: Performed By: #### L 300.4310, L503.6005, L300.3900, L501.2450, L500.2500, L500.3400, L100.0100 #### [facility] [address] [place], [address] CO2 [Moles/Vol] 24.6 mmol/L Normal 21.0-32.0 [facility] Comment on above: Performed By: #### L 300.4310, L503.6005, L300.3900, L501.2450, L500.2500, L500.3400, L100.0100 #### [facility] [address] [place], [address] Creatinine [Mass/Vol] 1.01 mg/dL Normal 0.70-1.20 [facility] Comment on above: Performed By: #### L 300.4310, L503.6005, L300.3900, L501.2450, L500.2500, L500.3400, L100.0100 #### [facility] [address] [place], [address] ECRCL 145.41 ml/min Normal 50-250 [facility] Comment on above: Performed By: #### L 300.4310, L503.6005, L300.3900, L501.2450, L500.2500, L500.3400, L100.0100 #### [facility] [address] [place], [address] GAP 8 Normal 5-15 [facility] Comment on above: Performed By: #### L 300.4310, L503.6005, L300.3900, L501.2450, L500.2500, L500.3400, L100.0100 #### [facility] [address] [place], [address] GFR/1.73 sq M.predicted among non-blacks MDRD (S/P/Bld) [Vol rate/Area] 100 mL/min/{1.73_m2} Normal >60 [facility] Comment on above: Result Comment: mL/m in/1.73m2 CKD-EPI Creatinine Equation (2020) Performed By: #### L 300.4310, L503.6005, L300.3900, L501.2450, L500.2500, L500.3400, L100.0100 #### [facility] [address] [place], [address] Globulin (S) [Mass/Vol] 1.9 g/dL Low 2.2-4.2 [facility] Comment on above: Performed By: #### L 300.4310, L503.6005, L300.3900, L501.2450, L500.2500, L500.3400, L100.0100 #### [facility] [address] [place], [address] Glucose [Mass/Vol] 97 mg/dL Normal 70-99 [facility] Comment on above: Performed By: #### L 300.4310, L503.6005, L300.3900, L501.2450, L500.2500, L500.3400, L100.0100 #### [facility] [address] [place], [address] Potassium [Moles/Vol] 4.3 mmol/L Normal 3.3-5.1 [facility] Comment on above: Performed By: #### L 300.4310, L503.6005, L300.3900, L501.2450, L500.2500, L500.3400, L100.0100 #### [facility] [address] [place], [address] Sodium [Moles/Vol] 137 mmol/L Normal 133-145 [facility] Comment on above: Performed By: #### L 300.4310, L503.6005, L300.3900, L501.2450, L500.2500, L500.3400, L100.0100 #### [facility] [address] [place], [address] T PROT 5.6 g/dL Low 5.9-8.4 [facility] Comment on above: Performed By: #### L 300.4310, L503.6005, L300.3900, L501.2450, L500.2500, L500.3400, L100.0100 #### [facility] [address] [place], [address] Urea nitrogen [Mass/Vol] 7 mg/dL Normal 4-19 [facility] Comment on above: Performed By: #### L 300.4310, L503.6005, L300.3900, L501.2450, L500.2500, L500.3400, L100.0100 #### [facility] [address] [place], [address] Electrocardiogram reportOrde red By: Manuel Kim on 11-03-2024 EKG study [facility] [address] [place] [address] 12 Lead EKG 11/03/24 0504 MR#: [id number] Acct: [id number] Name: TONEJoeAIMEE SHAILA Rep #:[id number] : 1990 34 From: [...] rhythm Normal ECG Confirmed by Manuel Kim ([id number]), restaurant expeditor JANELL RIVERA ([id number]) on 11/03/2024 7:58:31 AM Referred By: LORI Confirmed By: Manuel Kim 11/03/24 0758 Date _ Manuel Kim MD CC: Dr. Román Sandoval MD; Dr. Kamron Erickson MD ~ Signed [facility] Other Phone: EKG study [facility] [address] [place] [address] 12 Lead EKG 11/02/24 1148 MR#: [id number] Acct: [id number] Name: AIMEE DUCKWORTH Rep #:[id number] : 1990 34 From: Manuel walsh MD Attending Dr: Dr. Román Sandoval MD Status: ADM IN Ordering Dr: Tramiane Tovar MD Date: 11/02 Location: ICU Sex: [...] Abnormal ECG Confirmed by Manuel Kim ([id number]), restaurant expeditor JANELL RIVERA ([id number]) on 11/03/2024 7:47:36 AM Referred By: Confirmed By: Manuel Kim 11/03/24 0747 Date _ Manuel Kim MD CC: Dr. Román Sandoval MD; Dr. Kamron Erickson MD; Dr. Tramaine Tovar MD ~ Signed [facility] Other Phone: Eosinophil percentageOrdered By: Román Sandoval on 11-03-2024 Eosinophils/100 WBC (Bld) 0.5 % 0-5 [facility] Erythrocyte distribution wid th (RBC) [Ratio]Ordered By: Román Sandoval on 11-03-2024 Erythrocyte distribution width (RBC) [Entitic vol] 48.2 fL High 35.1-43.9 [facility] Erythrocyte distribution wid th ratioOrdered By: Román Sandoval on 11-03-2024 Erythrocyte distribution width (RBC) [Ratio] 13.8 % 11.6-14.6 [facility] Estimation of creatinine vick aranceOrdered By: Román Sandoval on 11-03-2024 Estimated Creatinine Clearance Calc 145.41 ml/min 50-250 [facility] GFR/1.73 sq M.predicted lana g non-blacks MDRD (S/P/Bld) [Vol rate/Area]Ordered By: Román Sandoval on 11-03-2024 Estimated GFR (MDRD) Non-Af Amer 100 >60 [facility] Comment on above: mL/min/1.73m2 CKD-EP I Creatinine Equation (2020) Hematocrit Auto (Bld) [Volum e fraction]Ordered By: Román Sandoval on 11-03-2024 Hematocrit (Bld) [Volume fraction] 38.0 % Low 40-54 [facility] Hemoglobin measurementOrdere d By: Román Sandoval on 11-03-2024 Hemoglobin (Bld) [Mass/Vol] 12.6 g/dL Low 13.0-16. 5 [facility] Immature granulocytes/100 WB C Auto (Bld)Ordered By: Román Sandoval on 11-03-2024 Immature granulocytes/100 WBC (Bld) 0.500 % 0.0-0.9 [facility] Comment on above: IG% - Immature Granu locytes (promyelocytes, myelocytes and metamyelocytes) > 1% indicates that a LEFT SHIFT is Present. Laboratory - Chemistry and C hemistry - challengeOrdered By: Román Sandoval on 11-03-2024 AST [Catalytic activity/Vol] 22 U/L <38 [facility] Lymphocytes Auto (Unsp spec) [#/Vol]Ordered By: Román Sandoval on 11-03-2024 Lymphocytes (Bld) [#/Vol] 1.14 10*3/uL 0.83-4.5 1 [facility] Lymphocytes/100 WBC Auto (Un sp spec)Ordered By: Román Sandoval on 11-03-2024 Lymphocytes/100 WBC (Bld) 19.2 % 19-41 [facility] MCV (mean corpuscular volume ) determinationOrdered By: Román Sandoval on 11-03-2024 MCV (RBC) [Entitic vol] 94.1 fL High 80-94 [facility] Magnesiumon 11-03-2024 Magnesium [Mass/Vol] 2.4 mg/dL High 1.5-2.2 [facility] Comment on above: Performed By: #### L 300.4310, L503.6005, L300.3900, L501.2450, L500.2500, L500.3400, L100.0100 #### [facility] [address] [place], [place], [id number] Magnesium (Unsp spec) [Mass/ Vol]Ordered By: Román Sandoval on 11-03-2024 Magnesium [Mass/Vol] 2.4 mg/dL High 1.5-2.2 [facility] Mean corpuscular hemoglobin (MCH) determinationOrdered By: Román Sandoval on 11-03-2024 MCH (RBC) [Entitic mass] 31.2 pg 27.0-32.0 [facility] Mean corpuscular hemoglobin concentration (MCHC) determinationOrdered By: Román Sadnoval on 11-03-2024 MCHC (RBC) [Mass/Vol] 33.2 g/dL 32-36 [facility] Mean platelet volume determi nationOrdered By: Román Sandoval on 11-03-2024 Platelet mean volume (Bld) [Entitic vol] 9.6 fL 6.2-12.0 [facility] Monocyte percentageOrdered B y: Román Sandoval on 11-03-2024 Monocytes/100 WBC (Bld) 16.0 % High 0-10 [facility] Neutrophil percentageOrdered By: Román Sandoval on 11-03-2024 Neutrophils/100 WBC (Bld) 63.5 % 47-70 [facility] Nucleated red blood cell per centageOrdered By: Román Sandoval on 11-03-2024 Nucleated RBC/100 WBC (Bld) [Ratio] 0 % 0-5 [facility] Phosphoruson 11-03-2024 Phosphate [Mass/Vol] 3.5 mg/dL Normal 2.7-4.5 [facility] Comment on above: Performed By: #### L 300.4310, L503.6005, L300.3900, L501.2450, L500.2500, L500.3400, L100.0100 #### [facility] [address] [place], [place] [address] [place], [place], [id number] Platelet countOrdered By: Huy Sandoval on 11-03-2024 Platelets (Bld) [#/Vol] 172 10*3/uL 150-450 [facility] Potassium (Unsp spec) [Mass/ Vol]Ordered By: Román Sandoval on 11-03-2024 Potassium [Moles/Vol] 4.3 mmol/L 3.3-5.1 [facility] RBC Auto (Bld) [#/Vol]Ordere d By: Román Sandoval on 11-03-2024 RBC (Bld) [#/Vol] 4.04 10*6/uL Low 4.6-6.2 [facility] Serum creatinine measurement (mass/volume)Ordered By: Román Sandoval on 11-03-2024 Creatinine [Mass/Vol] 1.01 mg/dL 0.70-1.20 [facility] Serum globulin measurementOr dered By: Román Sandoval on 11-03-2024 Globulin (S) [Mass/Vol] 1.9 g/dL Low 2.2-4.2 [facility] Serum glucose measurement (m ass/volume)Ordered By: Román Sandoval on 11-03-2024 Glucose [Mass/Vol] 97 mg/dL 70-99 [facility] Serum or plasma alanine comer otransferase (ALT) measurementOrdered By: Román Sandoval on 11-03-2024 ALT [Catalytic activity/Vol] 19 U/L <47 [facility] Serum or plasma albumin mauro urement (mass/volume)Ordered By: Román Sandoval on 11-03-2024 Albumin [Mass/Vol] 3.6 g/dL 3.5-5.0 [facility] Serum or plasma albumin/glob ulin mass ratioOrdered By: Román Sandoval on 11-03-2024 Albumin/Globulin [Mass ratio] 1.9 {ratio} 0.9-2.4 [facility] Serum or plasma alkaline fatuma sphatase measurementOrdered By: Román Sandoval on 11-03-2024 ALP [Catalytic activity/Vol] 66 U/L 40-129 [facility] Serum or plasma calcium mauro urement (mass/volume)Ordered By: Román Sandoval on 11-03-2024 Calcium [Mass/Vol] 7.8 mg/dL 7.6-11.0 [facility] Serum or plasma urea nitroge n measurement (mass/volume)Ordered By: Román Sandoval on 11-03-2024 Urea nitrogen [Mass/Vol] 7 mg/dL 4-19 [facility] Serum phosphorus measurement Ordered By: Román Sandoval on 11-03-2024 Phosphorus Level 3.5 mg/dL 2.7-4.5 [facility] Sodium levelOrdered By: Matt Sandoval on 11-03-2024 Sodium [Moles/Vol] 137 mmol/L 133-145 [facility] Total proteinOrdered By: Maxx Sandoval on 11-03-2024 Protein [Mass/Vol] 5.6 g/dL Low 5.9-8.4 [facility] White blood cell (WBC) count Ordered By: Román Sandoval on 11-03-2024 WBC (Bld) [#/Vol] 5.9 10*3/uL 4.4-11.0 [facility] 12 Lead EKGon 11-02-2024 12 Lead EKG [facility] [address] [address] 12 Lead EKG 11/02/24 1148 MR#: [id number] Acct: [id number] Name: AIMEE DUCKWORTH Rep #: [id number] : 1990 34 From: Manuel Kim MD [...] Abnormal ECG Confirmed by Manuel Kim ([id number]), restaurant expeditor JANELL RIVERA ([id number]) on 11/03/2024 7:47:36 AM Referred By: Confirmed By: Manuel Kim 11/03/24 0747 Date Manuel Kim MD CC: Dr. Román Sandoval MD; Dr. Kamron Erickson MD; Dr. Tramaine Tovar MD Signed Normal [facility] Absolute neutrophil countOrd ered By: Tramaine Tovar on 11-02-2024 Neutrophils (Bld) [#/Vol] 5.0 10*3/uL 2.0-7.7 [facility] Acetaminophen (Tylenol) Leve sandra 11-02-2024 Acetaminophen [Mass/Vol] 10.5 ug/mL Normal 8.0-19.0 [facility] Comment on above: Result Comment: Acet aminophen concentrations > 200 ug/mL four hours after ingestion, > 100 ug/mL eight hours after ingestion, and > 50 ug/mL 12 hours after ingestion are potentially toxic. Performed By: #### L 300.4310, L503.6005, L300.3900, L501.2450, L500.2500, L500.3400, L100.0100 #### [facility] [address] [place], [address] Alcohol, Blood (Medical)-Ser umon 11-02-2024 SERUM ETOH < 10.1 Normal <=10.0 [facility] Comment on above: Result Comment: This test is for medical purposes only. The legal definition of intoxication varies according to local law. Performed By: #### L 300.4310, L503.6005, L300.3900, L501.2450, L500.2500, L500.3400, L100.0100 #### [facility] [address] [place], [address] Amphetamines Screen method > 1000 ng/mL Ql (U)Ordered By: Tramaine Tovar on 11-02-2024 Amphetamines Ql (U) Positive <1000 ng/mL [facility] Comment on above: If confirmation test ing is needed, a separate order will be required to send out testing to the reference laboratory. Urine Barbiturates Screen Negative < 200 ng/mL [facility] Anion gap in Serum or Plasma Ordered By: Tramaine Tovar on 11-02-2024 Anion gap [Moles/Vol] 14 mmol/L 5-15 [facility] BUN/creatinine ratioOrdered By: Tramaine Tovar on 11-02-2024 Urea nitrogen/Creatinine [Mass ratio] 7.4 mg/mg Low 10-20 [facility] Basophil percentageOrdered B y: Tramaine Tovar on 11-02-2024 Basophils/100 WBC (Bld) 0.5 % 0-1 [facility] Bilirubin, totalOrdered By: Tramaine Tovar on 11-02-2024 Bilirubin [Mass/Vol] 0.15 mg/dL 0.00-1.30 [facility] CBC W/Diff, Automatedon SMEAR COMMENT SCANNED Normal [facility] Comment on above: Result Comment: SLIG HT MONOCYTOSIS NOTED Performed By: #### L 300.4310, L503.6005, L300.3900, L501.2450, L500.2500, L500.3400, L100.0100 #### [facility] [address] [place], [place], [phone] Carbon dioxide, total [Moles /volume] in Central venous bloodOrdered By: Tramaine Tovar on 11-02-2024 CO2 [Moles/Vol] 23.4 mmol/L 21.0-32.0 [facility] Chloride assayOrdered By: Alanis Tovar on 11-02-2024 Chloride [Moles/Vol] 99 mmol/L 98-108 [facility] Comprehensive Metabolic Prof ilon 11-02-2024 Albumin [Mass/Vol] 3.9 g/dL Normal 3.5-5.0 [facility] Comment on above: Performed By: #### L 300.4310, L503.6005, L300.3900, L501.2450, L500.2500, L500.3400, L100.0100 #### [facility] [address] [place], [address] Albumin/Globulin [Mass ratio] 2.0 {ratio} Normal 0.9-2.4 [facility] Comment on above: Performed By: #### L 300.4310, L503.6005, L300.3900, L501.2450, L500.2500, L500.3400, L100.0100 #### [facility] [address] [place], [address] ALK PHOS 74 U/L Normal 40-129 [facility] Comment on above: Performed By: #### L 300.4310, L503.6005, L300.3900, L501.2450, L500.2500, L500.3400, L100.0100 #### [facility] [address] [place], [address] ALT [Catalytic activity/Vol] 21 U/L Normal <=46 [facility] Comment on above: Performed By: #### L 300.4310, L503.6005, L300.3900, L501.2450, L500.2500, L500.3400, L100.0100 #### [facility] [address] [place], [address] AST [Catalytic activity/Vol] 24 U/L Normal <=37 [facility] Comment on above: Performed By: #### L 300.4310, L503.6005, L300.3900, L501.2450, L500.2500, L500.3400, L100.0100 #### [facility] [address] [place], [address] Bilirubin [Mass/Vol] 0.15 mg/dL Normal 0.00-1.30 [facility] Comment on above: Performed By: #### L 300.4310, L503.6005, L300.3900, L501.2450, L500.2500, L500.3400, L100.0100 #### [facility] [address] [place], [address] BUN/CRE 7.4 RATIO Low 10-20 [facility] Comment on above: Performed By: #### L 300.4310, L503.6005, L300.3900, L501.2450, L500.2500, L500.3400, L100.0100 #### [facility] [address] [place], [address] Calcium [Mass/Vol] 8.0 mg/dL Normal 7.6-11.0 [facility] Comment on above: Performed By: #### L 300.4310, L503.6005, L300.3900, L501.2450, L500.2500, L500.3400, L100.0100 #### [facility] [address] [place], [address] Chloride [Moles/Vol] 99 mmol/L Normal 98-108 [facility] Comment on above: Performed By: #### L 300.4310, L503.6005, L300.3900, L501.2450, L500.2500, L500.3400, L100.0100 #### [facility] [address] [place], [address] CO2 [Moles/Vol] 23.4 mmol/L Normal 21.0-32.0 [facility] Comment on above: Performed By: #### L 300.4310, L503.6005, L300.3900, L501.2450, L500.2500, L500.3400, L100.0100 #### [facility] [address] [place], [address] Creatinine [Mass/Vol] 1.22 mg/dL High 0.70-1.20 [facility] Comment on above: Performed By: #### L 300.4310, L503.6005, L300.3900, L501.2450, L500.2500, L500.3400, L100.0100 #### [facility] [address] [place], [address] ECRCL 119.42 ml/min Normal 50-250 [facility] Comment on above: Performed By: #### L 300.4310, L503.6005, L300.3900, L501.2450, L500.2500, L500.3400, L100.0100 #### [facility] [address] [place], [address] GAP 14 Normal 5-15 [facility] Comment on above: Performed By: #### L 300.4310, L503.6005, L300.3900, L501.2450, L500.2500, L500.3400, L100.0100 #### [facility] [address] [place], [address] GFR/1.73 sq M.predicted among non-blacks MDRD (S/P/Bld) [Vol rate/Area] 80 mL/min/{1.73_m2} Normal >60 [facility] Comment on above: Result Comment: mL/m in/1.73m2 CKD-EPI Creatinine Equation (2020) Performed By: #### L 300.4310, L503.6005, L300.3900, L501.2450, L500.2500, L500.3400, L100.0100 #### [facility] [address] [place], [address] Globulin (S) [Mass/Vol] 2.0 g/dL Low 2.2-4.2 [facility] Comment on above: Performed By: #### L 300.4310, L503.6005, L300.3900, L501.2450, L500.2500, L500.3400, L100.0100 #### [facility] [address] [place], [address] Glucose [Mass/Vol] 161 mg/dL High 70-99 [facility] Comment on above: Performed By: #### L 300.4310, L503.6005, L300.3900, L501.2450, L500.2500, L500.3400, L100.0100 #### [facility] [address] [place], [address] Potassium [Moles/Vol] 3.4 mmol/L Normal 3.3-5.1 [facility] Comment on above: Performed By: #### L 300.4310, L503.6005, L300.3900, L501.2450, L500.2500, L500.3400, L100.0100 #### [facility] [address] [place], [address] Sodium [Moles/Vol] 136 mmol/L Normal 133-145 [facility] Comment on above: Performed By: #### L 300.4310, L503.6005, L300.3900, L501.2450, L500.2500, L500.3400, L100.0100 #### [facility] [address] [place], [address] T PROT 5.9 g/dL Normal 5.9-8.4 [facility] Comment on above: Performed By: #### L 300.4310, L503.6005, L300.3900, L501.2450, L500.2500, L500.3400, L100.0100 #### [facility] [address] [place], [address] Urea nitrogen [Mass/Vol] 9 mg/dL Normal 4-19 [facility] Comment on above: Performed By: #### L 300.4310, L503.6005, L300.3900, L501.2450, L500.2500, L500.3400, L100.0100 #### [facility] [address] [place], [address] Emergency Department Summary on 11-02-2024 Emergency Department Summary [facility] Medical Records Department [address] [facility] [place] [address] Emergency Department Summary 11/02/24 MR#: [id number] Acct: [id number] Name: AIMEE DUCKWORTH Rep #: [id number] : 1990 34 From: Tramaine Tovar MD PCP: Dr. Kamron Erickson MD Status:REG ER Location: ED HPI History of Present Illness Chief Complaint: Overdose Detail of Chief Complaint: Suicide attempt, took 6450 mg trazodone tablets 30 to 45 minutes [employer]UR [employer]MING [employer] Informant: patient Onset/Context/Timing Onset: Hours Context: Sudden [...] 1 - 2 puff inhalation Q4H PRN AR N 11/02/24 Unknown History aerosol inhaler cough [...] and up (more content not included)... Normal [facility] Eosinophil percentageOrdered By: Tramaine Tovar on 11-02-2024 Eosinophils/100 WBC (Bld) 2.1 % 0-5 [facility] Erythrocyte distribution wid th ratioOrdered By: Tramaine Tovar on 11-02-2024 Erythrocyte distribution width (RBC) [Ratio] 13.5 % 11.6-14.6 [facility] Erythrocyte distribution wid th standard deviationOrdered By: Tramainedelia Toavr on 11-02-2024 Erythrocyte distribution width (RBC) [Entitic vol] 46.1 fL High 35.1-43.9 [facility] Estimation of creatinine vick aranceOrdered By: Tramaine Tovar on 11-02-2024 Estimated Creatinine Clearance Calc 119.42 ml/min 50-250 [facility] Ethanol [Mass/Vol]Ordered By : Tramaine Tovar on 11-02-2024 Ethyl Alcohol Level < 10.1 mg/dL <10.1 [facility] Comment on above: This test is for med ical purposes only. The legal definition of intoxication varies according to local law. GFR/1.73 sq M.predicted lana g non-blacks MDRD (S/P/Bld) [Vol rate/Area]Ordered By: Tramaine Tovar on 11-02-2024 Estimated GFR (MDRD) Non-Af Amer 80 >60 [facility] Comment on above: mL/min/1.73m2 CKD-EP I Creatinine Equation (2020) H AND P Exam - [facility] 11-02-2024 H&P Exam - Hospitalist [facility] Medical Records Department [address] [place] [address] H P Exam - Hospitalist 11/02/24 1306 MR#: [id number] Acct: [id number] Name: AIMEE DUCKWORTH Rep #: [id number] : 1990 34 From: Román Sandoval MD [...] Q4H [facility]N [facility] 11/02/24 Unknown History aerosol inhaler bupropion [...] % (Auto) 54.1, Lymph % (Auto) 24.9, Ware % (Auto) 18.0 H, Eos % (Auto) [...] ??? Patient (more content not included)... Normal [facility] Hematocrit Auto (Bld) [Volum e fraction]Ordered By: Tramaine Tovar on 11-02-2024 Hematocrit (Bld) [Volume fraction] 40.5 % 40-54 [facility] Hemoglobin measurementOrdere d By: Tramaine Tovra on 11-02-2024 Hemoglobin (Bld) [Mass/Vol] 13.6 g/dL 13.0-16. 5 [facility] Immature granulocytes/100 WB C Auto (Bld)Ordered By: Tramaine Tovar on 11-02-2024 Immature granulocytes/100 WBC (Bld) 0.400 % 0.0-0.9 [facility] Comment on above: IG% - Immature Granu locytes (promyelocytes, myelocytes and metamyelocytes) > 1% indicates that a LEFT SHIFT is Present. Laboratory - Chemistry and C hemistry - challengeOrdered By: Tramaine Tovar on 11-02-2024 AST [Catalytic activity/Vol] 24 U/L <38 [facility] Lymphocytes Auto (Unsp spec) [#/Vol]Ordered By: Tramaine Tovar on 11-02-2024 Lymphocytes (Bld) [#/Vol] 2.30 10*3/uL 0.83-4.5 1 [facility] Lymphocytes/100 WBC Auto (Un sp spec)Ordered By: Tramaine Tovar on 11-02-2024 Lymphocytes/100 WBC (Bld) 24.9 % 19-41 [facility] MCV (mean corpuscular volume ) determinationOrdered By: Tramaine Tovar on 11-02-2024 MCV (RBC) [Entitic vol] 93.3 fL 80-94 [facility] Manual differential comment Bebeto (Bld) [Interp]Ordered By: Tramaine Tovar on 11-02-2024 Differential Comment SCANNED [facility] Comment on above: SLIGHT MONOCYTOSIS N OTED Mean corpuscular hemoglobin (MCH) determinationOrdered By: Tramaine Tovar on 11-02-2024 MCH (RBC) [Entitic mass] 31.3 pg 27.0-32.0 [facility] Mean corpuscular hemoglobin concentration (MCHC) determinationOrdered By: Tramaine Tovar on 11-02-2024 MCHC (RBC) [Mass/Vol] 33.6 g/dL 32-36 [facility] Mean platelet volume determi nationOrdered By: Tramaine Tovar on 11-02-2024 Platelet mean volume (Bld) [Entitic vol] 9.5 fL 6.2-12.0 [facility] Methadone, urineOrdered By: Tramaine Tovar on 11-02-2024 Urine Methadone Screen Negative < 300 ng/mL [facility] Monocyte percentageOrdered B y: Tramaine Tovar on 11-02-2024 Monocytes/100 WBC (Bld) 18.0 % High 0-10 [facility] Neutrophil percentageOrdered By: Tramainedelia Tovar on 11-02-2024 Neutrophils/100 WBC (Bld) 54.1 % 47-70 [facility] No Panel InformationOrdered By: Tramainedelia Tovar on 11-02-2024 Urine Buprenorphine Qualitative Negative < 200 ng/mL [facility] Urine Oxycodone Screen Negative < 100 ng/mL [facility] Nucleated red blood cell per centageOrdered By: Tramainedelia Tovar on 11-02-2024 Nucleated RBC/100 WBC (Bld) [Ratio] 0 % 0-5 [facility] Platelet countOrdered By: [facility] Guy on 11-02-2024 Platelets (Bld) [#/Vol] 197 10*3/uL 150-450 [facility] Potassium (Unsp spec) [Mass/ Vol]Ordered By: [facility] Guy on 11-02-2024 Potassium [Moles/Vol] 3.4 mmol/L 3.3-5.1 [facility] Quantitative urine opiates m easurementOrdered By: Tramainedelia Tovar on 11-02-2024 Opiates Ql (U) Negative < 300 ng/mL [facility] RBC Auto (Bld) [#/Vol]Ordere d By: Tramainedelia Tovar on 11-02-2024 RBC (Bld) [#/Vol] 4.34 10*6/uL Low 4.6-6.2 [facility] Salicylateon 11-02-2024 SALICYLATE 1.8 mg/dL Low 2.8-20.0 [facility] Comment on above: Result Comment: Sali cylate concentrations > 30 mg/dL are potentially toxic. Salicylate concentrations exceeding 60 mg/dL can be lethal. Performed By: #### L 300.4310, L503.6005, L300.3900, L501.2450, L500.2500, L500.3400, L100.0100 #### [facility] [address] [place], [address] Salicylates [Mass/Vol]Ordere d By: Tramainedelia Tovar on 11-02-2024 Salicylates Level 1.8 mg/dL Low 2.8-20.0 [facility] Comment on above: Salicylate concentra tions > 30 mg/dL are potentially toxic.Salicylate concentrations exceeding 60 mg/dL can be lethal. Serum creatinine measurement (mass/volume)Ordered By: Tramainedelia Tovar on 11-02-2024 Creatinine [Mass/Vol] 1.22 mg/dL High 0.70-1.20 [facility] Serum globulin measurementOr dered By: Tramainedelia Tovar on 11-02-2024 Globulin (S) [Mass/Vol] 2.0 g/dL Low 2.2-4.2 [facility] Serum glucose measurement (m ass/volume)Ordered By: [facility] on 11-02-2024 Glucose [Mass/Vol] 161 mg/dL High 70-99 [facility] Serum or plasma acetaminophe n measurement (mass/volume)Ordered By: Tramaine Tovar on 11-02-2024 Acetaminophen [Mass/Vol] 10.5 ug/mL 8.0-19.0 [facility] Comment on above: Acetaminophen concen trations > 200 ug/mL four hours after ingestion, > 100 ug/mL eight hours after ingestion, and > 50 ug/mL 12 hours after ingestion are potentially toxic. Serum or plasma alanine comer otransferase (ALT) measurementOrdered By: [facility] on 11-02-2024 ALT [Catalytic activity/Vol] 21 U/L <47 [facility] Serum or plasma albumin mauro urement (mass/volume)Ordered By: Tramainedelia Tovar on 11-02-2024 Albumin [Mass/Vol] 3.9 g/dL 3.5-5.0 [facility] Serum or plasma albumin/glob ulin mass ratioOrdered By: [facility] on 11-02-2024 Albumin/Globulin [Mass ratio] 2.0 {ratio} 0.9-2.4 [facility] Serum or plasma alkaline fatuma sphatase measurementOrdered By: [facility] 11-02-2024 ALP [Catalytic activity/Vol] 74 U/L 40-129 [facility] Serum or plasma calcium mauro urement (mass/volume)Ordered By: [facility] on 11-02-2024 Calcium [Mass/Vol] 8.0 mg/dL 7.6-11.0 [facility] Serum or plasma urea nitroge n measurement (mass/volume)Ordered By: Tramaine Tovar on 11-02-2024 Urea nitrogen [Mass/Vol] 9 mg/dL 4-19 [facility] Sodium levelOrdered By: Tramaine Tovar on 11-02-2024 Sodium [Moles/Vol] 136 mmol/L 133-145 [facility] Total proteinOrdered By: Tramaine Tovar on 11-02-2024 Protein [Mass/Vol] 5.9 g/dL 5.9-8.4 [facility] Urine Drug Screen (VISTA)on 11-02-2024 AMPHETAMINES Positive Normal <1000 ng/mL [facility] Comment on above: Result Comment: If c onfirmation testing is needed, a separate order will be required to send out testing to the reference laboratory. Performed By: #### L 300.4310, L503.6005, L300.3900, L501.2450, L500.2500, L500.3400, L100.0100 #### [facility] [address] [place], [place], [id number] ([phone]) BARBITIURATES Negative Normal < 200 ng/mL [facility] Comment on above: Performed By: #### L 300.4310, L503.6005, L300.3900, L501.2450, L500.2500, L500.3400, L100.0100 #### [facility] [address] [place], [place], [phone] BENZODIAZIPINE Positive Normal < 200 ng/mL [facility] Comment on above: Result Comment: If c onfirmation testing is needed, a separate order will be required to send out testing to the reference laboratory. Performed By: #### L 300.4310, L503.6005, L300.3900, L501.2450, L500.2500, L500.3400, L100.0100 #### [facility] [address] [place], [place], [id number] (047) BUP Ur Drug Scr Negative Normal < 200 ng/mL [facility] Comment on above: Performed By: #### L 300.4310, L503.6005, L300.3900, L501.2450, L500.2500, L500.3400, L100.0100 #### [facility] [address] [place] [address] COCAINE Negative Normal < 300 ng/mL [facility] Comment on above: Performed By: #### L 300.4310, L503.6005, L300.3900, L501.2450, L500.2500, L500.3400, L100.0100 #### [facility] [address] [place] [address] Fentanyl Negative Normal [facility] Comment on above: Performed By: #### L 300.4310, L503.6005, L300.3900, L501.2450, L500.2500, L500.3400, L100.0100 #### [facility] [address] [place] [address] METHADONE Negative Normal < 300 ng/mL [facility] Comment on above: Performed By: #### L 300.4310, L503.6005, L300.3900, L501.2450, L500.2500, L500.3400, L100.0100 #### [facility] [address] [place], [place], [facility] OPIATES Negative Normal < 300 ng/mL [facility] Comment on above: Performed By: #### L 300.4310, L503.6005, L300.3900, L501.2450, L500.2500, L500.3400, L100.0100 #### [facility] [address] [place], [place], [facility] OXYCODONE Negative Normal < 100 ng/mL [facility] Comment on above: Performed By: #### L 300.4310, L503.6005, L300.3900, L501.2450, L500.2500, L500.3400, L100.0100 #### [facility] [address] [place], [place], [id number] PCP Negative Normal < 25 ng/mL [facility] Comment on above: Performed By: #### L 300.4310, L503.6005, L300.3900, L501.2450, L500.2500, L500.3400, L100.0100 #### [facility] [address] [place], [place], [id number] THC Positive Normal < 50 ng/mL [facility] Comment on above: Result Comment: If c onfirmation testing is needed, a separate order will be required to send out testing to the reference laboratory. Performed By: #### L 300.4310, L503.6005, L300.3900, L501.2450, L500.2500, L500.3400, L100.0100 #### [facility] [address] [place], [place], [id number] Urine benzodiazepine levelOr dered By: Tramaine Tovar on 11-02-2024 Benzodiazepines Ql (U) Positive < 200 ng/mL [facility] Comment on above: If confirmation test ing is needed, a separate order will be required to send out testing to the reference laboratory. Urine cocaine levelOrdered B y: Tramaine Tovar on 11-02-2024 Cocaine Ql (U) Negative < 300 ng/mL [facility] Urine neddw-7-fjbewkohpqdguz abinol (THC) measurementOrdered By: Tramaine Tovar on 11-02-2024 Cannabinoids Screen Ql (U) Positive < 50 ng/m L [facility] Comment on above: If confirmation test ing is needed, a separate order will be required to send out testing to the reference laboratory. Urine phencyclidine (PCP) de tectionOrdered By: Tramaine Tovar on 11-02-2024 Phencyclidine Ql (U) Negative < 25 ng/mL [facility] White blood cell (WBC) count Ordered By: Tramaine Tovar on 11-02-2024 WBC (Bld) [#/Vol] 9.2 10*3/uL 4.4-11.0 [facility] fentaNYL Screen Ql (U)Ordere d By: Tramaine Tovar on 11-02-2024 Urine Fentanyl Screen Negative [facility] Absolute neutrophil countOrd ered By: Rodriguez Beavers on 08-03-2024 Neutrophils (Bld) [#/Vol] 3.8 10*3/uL 2.0-7.7 [facility] Alcohol, Blood (Medical)-Ser umon 08-03-2024 SERUM ETOH < 3.0 Normal [facility] Comment on above: Result Comment: The serum:whole blood ethanol ratio is approximately 1.14 and varies slightly with hematocrit. Medical Alcohol reference interval and critical value in non-tolerant individuals; 50 - 100 Impairment 100 Intoxication 100 - 250 Severe Poisoning 250 - 400 Deep/possible fatal coma Performed By: #### L 300.4310, L503.6005, L300.3900, L501.2450, L500.2500, L500.3400, L100.0100 #### [facility] [address] [place], [place], [id number] Atypical lymphocyte percenta geOrdered By: Rodriguez Beavers on 08-03-2024 Atypical Lymphocytes 1+ % [facility] Basic Metabolic Profile (BMP )on 08-03-2024 BUN/CRE 12.7 RATIO Normal 10-20 [facility] Comment on above: Performed By: #### L 300.4310, L503.6005, L300.3900, L501.2450, L500.2500, L500.3400, L100.0100 #### [facility] [address] [place], [address] CA,Total 8.4 mg/dL Low 8.5-10.1 [facility] Comment on above: Performed By: #### L 300.4310, L503.6005, L300.3900, L501.2450, L500.2500, L500.3400, L100.0100 #### [facility] [address] [place], [address] Chloride [Moles/Vol] 104 mmol/L Normal 98-107 [facility] Comment on above: Performed By: #### L 300.4310, L503.6005, L300.3900, L501.2450, L500.2500, L500.3400, L100.0100 #### [facility] [address] [place], [place], [phone] (547 CO2 [Moles/Vol] 31.0 mmol/L Normal 21.0-32.0 [facility] Comment on above: Performed By: #### L 300.4310, L503.6005, L300.3900,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 [Moles/Vol] 3.6 mmol/L 3.5-5.1 [facility] Work Phone: Sodium [Moles/Vol] 137 mmol/L 136-145 [facility] Work Phone: WBC (Bld) [#/Vol] 11.8 10*3/uL 4.4-11.0 [facility] Work Phone: Blood erythrocytes count (nu mber/volume)on 01-30-2022 RBC (Bld) [#/Vol] 5.28 10*6/uL 4.6-6.2 [facility] Work Phone: Blood hemoglobin measurement (mass/volume)on 01-30-2022 Hemoglobin (Bld) [Mass/Vol] 15.7 g/dL 13.0-16. 5 [facility] Work Phone: Blood lymphocytes/100 leukoc yteson 01-30-2022 Lymphocytes/100 WBC (Bld) 7.3 % 19-41 [facility] Work Phone: Blood manual differential co mment interpretation (narrative result)on 01-30-2022 Manual differential comment Bebeto (Bld) [Interp] See comment [facility] Work Phone: Comment on above: AUTO DIFF [place] Blood monocytes/100 leukocyt eson 01-30-2022 Monocytes/100 WBC (Bld) 2.7 % 0-10 [facility] Work Phone: Blood platelet mean volumeon 01-30-2022 Platelet mean volume (Bld) [Entitic vol] 9.9 fL 6.2-12.0 [facility] Work Phone: Determination of erythrocyte mean corpuscular volume (MCV)on 01-30-2022 MCV (RBC) [Entitic vol] 94.3 fL 80-94 [facility] Work Phone: Hematocrit Auto (Bld) [Volum e fraction]on 01-30-2022 Hematocrit (Bld) [Volume fraction] 49.8 % 40-54 [facility] Work Phone: Laboratory - Chemistry and C hemistry - challengeon 01-30-2022 CO2 [Moles/Vol] 20.0 mmol/L 21.0-32.0 [facility] Work Phone: Urea nitrogen/Creatinine [Mass ratio] 7.0 mg/mg 10-20 [facility] Work Phone: Laboratory - Hematology and Cell countson 01-30-2022 Erythrocyte distribution width (RBC) [Entitic vol] 42.8 fL 35.1-43.9 [facility] Work Phone: Erythrocyte distribution width (RBC) [Ratio] 12.4 % 11.6-14.6 [facility] Work Phone: Immature granulocytes/100 WBC (Bld) 0.400 % 0.0-0.9 [facility] Work Phone: Comment on above: IG% - Immature Granu locytes (promyelocytes, myelocytes and metamyelocytes) > 1% indicates that a LEFT SHIFT is Present. MCH (RBC) [Entitic mass] 29.7 pg 27.0-32.0 [facility] Work Phone: Nucleated RBC/100 WBC (Bld) [Ratio] 0 % 0-5 [facility] Work Phone: MCHC Auto (RBC) [Mass/Vol]on 01-30-2022 MCHC (RBC) [Mass/Vol] 31.5 g/dL 32-36 [facility] Work Phone: No Panel Informationon 01-30 Estimated Creatinine Clearance Calc 102.15 ml/min [facility] Work Phone: Estimated GFR (MDRD) Amer 95 mL/min >60 [facility] Work Phone: Comment on above: GFR Calc Estimated GFR (MDRD) Non-Af Amer 79 mL/min >60 [facility] Work Phone: Comment on above: Non- GFR Calc Platelets bldon 01-30-2022 Platelets (Bld) [#/Vol] 345 10*3/uL 150-450 [facility] Work Phone: Serum or plasma calcium mauro urement (mass/volume)on 01-30-2022 Calcium [Mass/Vol] 9.2 mg/dL 8.5-10.1 [facility] Work Phone: Serum or plasma creatinine m easurement (mass/volume)on 01-30-2022 Creatinine [Mass/Vol] 1.15 mg/dL 0.70-1.30 [facility] Work Phone: Comment on above: The validity of the calculated GFR & GFRAA in patients over 70 years has not been determined. Clinical correlation is essential. Serum or plasma urea nitroge n measurement (mass/volume)on 01-30-2022 Urea nitrogen [Mass/Vol] 8 mg/dL 7-18 [facility] Work Phone: Thin prep Papanicolaou smear with manual screeningon 01-30-2022 Thin prep Papanicolaou smear with manual screening 11 5-15 [facility] Work Phone: Absolute lymphocyte counton 12-31-2021 Lymphocytes Auto (Unsp spec) [#/Vol] 2.55 10*3/uL 0.83-4.51 [facility] Work Phone: Basophil percentageon 2021 Basophils/100 WBC (Bld) 0.1 % 0-1 [facility] Work Phone: Bilirubin [Mass/Vol] 0.90 mg/dL 0.20-1.00 [facility] Work Phone: Comment on above: For patients on eltr ombopag therapy, use of Dimension [place] TBIL is not recommended. Chloride [Moles/Vol] 100 mmol/L 98-107 [facility] Work Phone: Eosinophils/100 WBC (Bld) 0.0 % 0-5 [facility] Work Phone: Glucose [Mass/Vol] 137 mg/dL 74-106 [facility] Work Phone: Comment on above: Fasting Glucose resu lt greater than or equal to 126 mg/dL suggests DIABETES MELLITUS per A.D.A. criteria. Neutrophils (Bld) [#/Vol] 15.3 10*3/uL 2.0-7.7 [facility] Work Phone: Neutrophils/100 WBC (Bld) 77.9 % 47-70 [facility] Work Phone: Potassium [Moles/Vol] 3.1 mmol/L 3.5-5.1 [facility] Work Phone: Protein [Mass/Vol] 7.2 g/dL 6.4-8.2 [facility] Work Phone: Sodium [Moles/Vol] 139 mmol/L 136-145 [facility] Work Phone: WBC (Bld) [#/Vol] 19.7 10*3/uL 4.4-11.0 [facility] Work Phone: [phone] Blood erythrocytes count (nu mber/volume)on 12-31-2021 RBC (Bld) [#/Vol] 4.94 10*6/uL 4.6-6.2 [facility] Work Phone: [phone] Blood hemoglobin measurement (mass/volume)on 12-31-2021 Hemoglobin (Bld) [Mass/Vol] 14.9 g/dL 13.0-16. 5 [facility] Work Phone: Blood lymphocytes/100 leukoc yteson 12-31-2021 Lymphocytes/100 WBC (Bld) 13.0 % 19-41 [facility] Work Phone: [phone] Blood manual differential co mment interpretation (narrative result)on 12-31-2021 Manual differential comment Bebeto (Bld) [Interp] SCANNED [facility] Work Phone: Blood monocytes/100 leukocyt eson 12-31-2021 Monocytes/100 WBC (Bld) 8.6 % 0-10 [facility] Work Phone: [phone] Blood platelet adequacy dete ction by light microscopyon 12-31-2021 Platelets LM Ql (Bld) ADEQUATE ADEQ [facility] Work Phone: [phone] Blood platelet mean volumeon 12-31-2021 Platelet mean volume (Bld) [Entitic vol] 9.4 fL 6.2-12.0 [facility] Work Phone: [phone] Determination of erythrocyte mean corpuscular volume (MCV)on 12-31-2021 MCV (RBC) [Entitic vol] 90.1 fL 80-94 [facility] Work Phone: [phone] Hematocrit Auto (Bld) [Volum e fraction]on 12-31-2021 Hematocrit (Bld) [Volume fraction] 44.5 % 40-54 [facility] Work Phone: [phone] Laboratory - Chemistry and C hemistry - challengeon 12-31-2021 ALP [Catalytic activity/Vol] 103 U/L 45-117 [facility] Work Phone: [phone] ALT [Catalytic activity/Vol] 21 U/L 16-61 [facility] Work Phone: [phone] CO2 [Moles/Vol] 30.0 mmol/L 21.0-32.0 [facility] Work Phone: [phone] Globulin (S) [Mass/Vol] 3.1 g/dL 2.2-4.2 [facility] Work Phone: [phone] Urea nitrogen/Creatinine [Mass ratio] 7.6 mg/mg 10-20 [facility] Work Phone: [phone] Laboratory - Hematology and Cell countson 12-31-2021 Erythrocyte distribution width (RBC) [Entitic vol] 40.7 fL 35.1-43.9 [facility] Work Phone: [phone] Erythrocyte distribution width (RBC) [Ratio] 12.4 % 11.6-14.6 [facility] Work Phone: Immature granulocytes/100 WBC (Bld) 0.400 % 0.0-0.9 [facility] Work Phone: Comment on above: IG% - Immature Granu locytes (promyelocytes, myelocytes and metamyelocytes) > 1% indicates that a LEFT SHIFT is Present. MCH (RBC) [Entitic mass] 30.2 pg 27.0-32.0 [facility] Work Phone: Nucleated RBC/100 WBC (Bld) [Ratio] 0 % 0-5 [facility] Work Phone: MCHC Auto (RBC) [Mass/Vol]on 12-31-2021 MCHC (RBC) [Mass/Vol] 33.5 g/dL 32-36 [facility] Work Phone: No Panel Informationon 12-31 Estimated Creatinine Clearance Calc 89.68 ml/min [facility] Work Phone: Estimated GFR (MDRD) Amer 82 mL/min >60 [facility] Work Phone: Comment on above: GFR Calc Estimated GFR (MDRD) Non-Af Amer 68 mL/min >60 [facility] Work Phone: Comment on above: Non- GFR Calc Platelets bldon 12-31-2021 Platelets (Bld) [#/Vol] 374 10*3/uL 150-450 [facility] Work Phone: Review by pathologiston 12-04 Pathologist review Bebeto (Unsp spec) [Interp] Lu bridges [facility] Work Phone: Pathologist review Bebeto (Unsp spec) [Interp] Reviewed [facility] Work Phone: Comment on above: Previous reported re sult: December yuliana Edited by: [email or web address] on 01/01/22:1152Neutrophilic leukocytosis.Clinical correlation suggested.Sb Varma D.O. 01/01/22 AMENDED REPORT 01/01/22 1152 PATH REV previously reported as: December yuliana Serum or plasma albumin mauro urement (mass/volume)on 12-31-2021 Albumin [Mass/Vol] 4.1 g/dL 3.2-5.0 [facility] Work Phone: Serum or plasma albumin/glob ulin mass ratioon 12-31-2021 Albumin/Globulin [Mass ratio] 1.3 {ratio} 0.9-2.4 [facility] Work Phone: Serum or plasma calcium mauro urement (mass/volume)on 12-31-2021 Calcium [Mass/Vol] 8.8 mg/dL 8.5-10.1 [facility] Work Phone: Serum or plasma creatinine m easurement (mass/volume)on 12-31-2021 Creatinine [Mass/Vol] 1.31 mg/dL 0.70-1.30 [facility] Work Phone: Comment on above: The validity of the calculated GFR & GFRAA in patients over 70 years has not been determined. Clinical correlation is essential. Serum or plasma urea nitroge n measurement (mass/volume)on 12-31-2021 Urea nitrogen [Mass/Vol] 10 mg/dL 7-18 [facility] Work Phone: Thin prep Papanicolaou smear with manual screeningon 12-31-2021 Thin prep Papanicolaou smear with manual screening 12 U/L 15-37 [facility] Work Phone: Thin prep Papanicolaou smear with manual screening 9 5-15 [facility] Work Phone: No Panel Informationon 12-27 Enteric Bacteriology [facility] Work Phone: Gram stain for investigation of transfusion reactionon 12-17-2021 Microscopic observation Gram stain Nom (Unsp spec) [facility] Work Phone: No Panel Informationon 12-17 Nasopharyngeal Culture Pseudomonas aeroginosa [facility] Work Phone: TSCon 06-04-2018 [facility] DATE OF SERVICE: 06/04/2018Patient is a 27-year-old [...] afebrile, and appropriate for outpatientmanagement._ Abraham Aguilar, [facility]/[id number]: 06/04/2018 10:57 [facility] PATIENT NAME: AIMEE DUCKWORTH [id number] Radha Trinh MEDICAL REC #: [id number], [place] [address] STATCARE REPORT STATCARE PHYSICIANDT: 06/05/2018 09:29SSI File#: [id number] #: [id number]/Reviewe d by06/05/18 1018 ANGEL [facility] PATIENT NAME: AIMEE DUCKWORTH [id number] Radha Trinh MEDICAL REC #: [id number], [place] [address] STATCARE REPORT STATCARE PHYSICIAN [facility] CASSANDRA STATCARE REPORT [facility] 07-17-2017 GI -- ----Patient: AIMEE DUCKWORTH C ----SPECIMEN: [id number] Collection Date: 07/17/17 Received: 07/22/17 Status: ERIC Nesbitt Dr.: Ashtyn Moreira MD Ph# Othr. Dr.: Hailey Jarquin NP Material for Examination: A ESOPHAGEAL BX @ 39 CM, R/O PONCE'S PRE-OP DIAGNOSIS: ULCER OF ESOPHAGUS POST-OP DIAGNOSIS: NONE GIVEN SURGICAL PROCEDURE: NONE GIVEN SPECIMEN COMMENTS: RECEIVED FROM [facility], [address] [place] [address] 2 Jan SLIDES LABELED [id number] AIMEE DUCKWORTH L1,E3NYCXAYGIL A. Esophagus, at 39 cm; multiple biopsies: [...] Phonetic and/or minor grammatical errors may exist. [facility] NAME: AIMEE DUCKWORTH Pathology and Laboratory Medicine UNIT#: [id number] LOC: [facility] [employer]rier Operator: Rula Ryan M.D. [facility] : 89 AGE/SEX: 26/M ORD.Ashtyn Mitchell MD END OF REPORT Normal [facility] [place] Gram stain for investigation of transfusion reaction Microscopic observation Gram stain Nom (Unsp spec) [facility] Work Phone: No Panel Information Nasopharyngeal Culture Pseudomonas aeroginosa [facility] Work Phone: Vital Signs Date Time Vital Sign Value Performing Clinician Faci lity 04-22-2025 11:54-0400 Body temperature 98.1 [degF] Dr. Kamron Erickson MD Work Phone: [facility] 04-22-2025 11:54-0400 Diastolic blood pressure 94 mm[Hg] Dr. Kamron Erickson MD Work Phone: [facility] 04-22-2025 11:54-0400 Heart rate 68 /min Dr. Kamron Erickson MD Work Phone: [facility] 04-22-2025 11:54-0400 Respiratory rate 16 /min Dr. Kamron Erickson MD Work Phone: [facility] 04-22-2025 11:54-0400 SaO2% (BldA) [Mass fraction] 97 % Dr. Kamron Erickson MD Work Phone: [facility] 04-22-2025 11:54-0400 Systolic blood pressure 152 mm[Hg] Dr. Kamron Erickson MD Work Phone: 6(709)965-547215 [place] [address] 04-22-2025 07:38-0400 Body height 182.[address] Kamron Erickson MD Work Phone: 5(529)348-107715 [place] [address] 04-22-2025 07:38-0400 Body mass index (BMI) [Ratio] 35.2 kg/m2 Dr. Kamron Erickson MD Work Phone: 2(864)109-056915 [place] [address] 04-22-2025 07:38-0400 Body weight [address] Kamron Erickson MD Work Phone: 8(489)146-654315 [place] [address] 04-21-2025 03:26-0400 Body temperature 99 [degF] Dr. Kamron Erickson MD Work Phone: 2(830)736-998815 [place] [address] 04-21-2025 03:26-0400 Diastolic blood pressure 97 mm[Hg] Dr. Kamron Erickson MD Work Phone: 3(454)929-331915 [place] [address] 04-21-2025 03:26-0400 Heart rate 102 /min Dr. Kamron Erickson MD Work Phone: 9(412)243-525815 [place] [address] 04-21-2025 03:26-0400 Respiratory rate 16 /min Dr. Kamron Erickson MD Work Phone: 5(452)597-577915 [place] [address] 04-21-2025 03:26-0400 SaO2% (BldA) [Mass fraction] 97 % Dr. Kamron Erickson MD Work Phone: 9(681)078-783415 [place] [address] 04-21-2025 03:26-0400 Systolic blood pressure 145 mm[Hg] Dr. Kamron Erickson MD Work Phone: 0(536)376-557615 [place] [address] 04-21-2025 02:04-0400 Body height 182.[address] Kamron Erickson MD Work Phone: 4(017)933-707715 [place] [address] 04-21-2025 02:04-0400 Body mass index (BMI) [Ratio] 35.6 kg/m2 Dr. Kamron Erickson MD Work Phone: 5(021)736-244315 [place] [address] 04-21-2025 02:04-0400 Body weight 119.[address] Kamron Erickson MD Work Phone: 5(403)046-079015 [place] [address] 11-03-2024 23:54-0400 Heart rate 68 /min Dr. Kamron Erickson MD Work Phone: 2(379)121-647789 [place] [address] 11-03-2024 23:54-0400 Respiratory rate 18 /min Dr. Kamron Erickson MD Work Phone: 0(312)750-534689 [place] [address] 11-03-2024 23:54-0400 SaO2% (BldA) [Mass fraction] 94 % Dr. Kamron Erickson MD Work Phone: 7(418)890-222815 [place] [address] 11-03-2024 21:30-0400 Body temperature 97.7 [degF] Dr. Kamron Erickson MD Work Phone: 0(256)043-574315 [place] [address] 11-03-2024 21:30-0400 Diastolic blood pressure 91 mm[Hg] Dr. Kamron Erickson MD Work Phone: 6(445)728-483115 [place] [address] 11-03-2024 21:30-0400 Systolic blood pressure 109 mm[Hg] Dr. Kamron Erickson MD Work Phone: 4(863)866-713215 [place] [address] 11-03-2024 09:24-0400 Body height 182.[address] Kamron Erickson MD Work Phone: 5(914)597-108815 [place] [address] 11-03-2024 09:24-0400 Body weight 131.[address] Kamron Erickson MD Work Phone: 3(611)026-676115 [place] [address] 11-03-2024 07:00-0400 Inhaled oxygen flow rate 2 L/min Dr. Kamron Erickson MD Work Phone: 5(960)735-840015 [place] [address] 11-03-2024 06:00-0400 Body mass index (BMI) [Ratio] 39.1 kg/m2 Dr. Kamron Erickson MD Work Phone: 7(878)773-848689 [place] [address] 11-02-2024 13:38-0400 Body temperature 97.7 [degF] Dr. Kamron Erickson MD Work Phone: 9(961)485-306189 [place] [address] 11-02-2024 13:38-0400 Diastolic blood pressure 78 mm[Hg] Dr. Kamron Erickson MD Work Phone: 4(051)996-965915 [place] [address] 11-02-2024 13:38-0400 Heart rate 87 /min Dr. Kamron Erickson MD Work Phone: 3(649)883-367489 [place] [address] 11-02-2024 13:38-0400 Respiratory rate 16 /min Dr. Kamron Erickson MD Work Phone: 9(867)059-649415 [place] [address] 11-02-2024 13:38-0400 SaO2% (BldA) [Mass fraction] 98 % Dr. Kamron Erickson MD Work Phone: 7(257)288-364015 [place] [address] 11-02-2024 13:38-0400 Systolic blood pressure 107 mm[Hg] Dr. Kamron Erickson MD Work Phone: 5(059)561-101815 [place] [address] 11-02-2024 11:24-0400 Body height 182.[address] Kamron Erickson MD Work Phone: 4(304)054-494415 [place] [address] 11-02-2024 11:24-0400 Body mass index (BMI) [Ratio] 39.2 kg/m2 Dr. Kamron Erickson MD Work Phone: 2(918)501-289615 [place] [address] 11-02-2024 11:24-0400 Body weight [address] Kamron Erickson MD Work Phone: 2(607)837-345915 [place] [address] 08-04-2024 08:51-0500 Body temperature 97.9 [degF] Dr. Kamron Erickson MD Work Phone: 6(695)322-363415 [place] [address] 08-04-2024 08:51-0500 Diastolic blood pressure 81 mm[Hg] Dr. Kamron Erickson MD Work Phone: 9(814)397-607215 [place] [address] 08-04-2024 08:51-0500 Heart rate 74 /min Dr. Kamron Erickson MD Work Phone: 5(059)689-232315 [place] [address] 08-04-2024 08:51-0500 Respiratory rate 16 /min Dr. Kamron Erickson MD Work Phone: 2(169)198-604915 [place] [address] 08-04-2024 08:51-0500 SaO2% (BldA) [Mass fraction] 97 % Dr. Kamron Erickson MD Work Phone: 4(174)272-789615 [place] [address] 08-04-2024 08:51-0500 Systolic blood pressure 124 mm[Hg] Dr. Kamron Erickson MD Work Phone: [facility] 08-03-2024 12:44-0500 Body mass index (BMI) [Ratio] 34.2 kg/m2 Dr. Kamron Erickson MD Work Phone: [facility] 08-03-2024 12:44-0500 Body weight 114.[address] Kamron Erickson MD Work Phone: [facility] 04-13-2023 07:01-0400 Diastolic blood pressure 59 mm[Hg] [facility] 04-13-2023 07:01-0400 Heart rate 66 /min [facility] 04-13-2023 07:01-0400 Respiratory rate 15 /min [facility] 04-13-2023 07:01-0400 SaO2% (BldA) [Mass fraction] 100 % [facility] 04-13-2023 07:01-0400 Systolic blood pressure 104 mm[Hg] [facility] 04-13-2023 04:07-0400 Body height 182.[address] [facility] 04-13-2023 04:07-0400 Body mass index (BMI) [Ratio] 36.1 kg/m2 [facility] 04-13-2023 04:07-0400 Body temperature 97.6 [degF] [facility] 04-13-2023 04:07-04[address] Body weight [address] [facility] 05-30-2022 08:38-0400 Diastolic blood pressure 81 mm[Hg] [facility] Work Phone: 05-30-2022 08:38-0400 Heart rate 90 /min [facility] Work Phone: 05-30-2022 08:38-0400 Respiratory rate 15 /min [facility] Work Phone: 05-30-2022 08:38-0400 SaO2% (BldA) [Mass fraction] 100 % [facility] Work Phone: 05-30-2022 08:38-0400 Systolic blood pressure 138 mm[Hg] [facility] Work Phone: 05-30-2022 06:18-0400 Body temperature 97.9 [degF] [facility] Work Phone: 05-29-2022 20:56-0400 Body height 182.[address] [facility] Work Phone: 05-29-2022 20:56-0400 Body mass index (BMI) [Ratio] 33 kg/m2 [facility] Work Phone: 05-29-2022 20:56-0400 Body weight 110.[address] [facility] Work Phone: 01-30-2022 14:47-0400 Body height 182.[address] [facility] Work Phone: 01-30-2022 14:47-0400 Body mass index (BMI) [Ratio] 32.4 kg/m2 [facility] Work Phone: 01-30-2022 14:47-0400 Body temperature 97 [degF] [facility] Work Phone: 01-30-2022 14:47-0400 Body weight 108.[address] [facility] Work Phone: 01-30-2022 14:47-0400 Diastolic blood pressure 102 mm[Hg] [facility] Work Phone: 01-30-2022 14:47-0400 Heart rate 124 /min [facility] Work Phone: 01-30-2022 14:47-0400 Respiratory rate 16 /min [facility] Work Phone: 01-30-2022 14:47-0400 SaO2% (BldA) [Mass fraction] 98 % [facility] Work Phone: 01-30-2022 14:47-0400 Systolic blood pressure 130 mm[Hg] [facility] Work Phone: 12-31-2021 04:11-0400 Diastolic blood pressure 90 mm[Hg] [facility] Work Phone: 12-31-2021 04:11-0400 Heart rate 82 /min [facility] Work Phone: 12-31-2021 04:11-0400 Respiratory rate 20 /min [facility] Work Phone: 12-31-2021 04:11-0400 SaO2% (BldA) [Mass fraction] 94 % [facility] Work Phone: 12-31-2021 04:11-0400 Systolic blood pressure 137 mm[Hg] [facility] Work Phone: 12-31-2021 01:56-0400 Body height 182.[address] [facility] Work Phone: 12-31-2021 01:56-0400 Body mass index (BMI) [Ratio] 34 kg/m2 [facility] Work Phone: 12-31-2021 01:56-0400 Body temperature 98.9 [degF] [facility] Work Phone: 12-31-2021 01:56-0400 Body weight 113.[address] [facility] Work Phone: Encounters Encounter Date Encounter Type Care Provider Facility Start: 05-31-2025 End: 06-01-2025 ambulatory Ren Boggs Facility:[facility] Start: 05-30-2025 End: 05-30-2025 Emergency department patient visit Kamron Erickson Facility:[facility] Start: 04-22-2025 End: 04-22-2025 Emergency department patient visit Dr. Rodriguez Beavers DO -Emergency Department Work Phone: Start: 04-21-2025 End: 04-21-2025 Emergency department patient visit Dr. Kamron Erickson MD Work Phone: -Emergency Department Work Phone: Start: 11-03-2024 Non-patient / Non-visit Dr. Román martinez MD -[facility] Work Phone: Start: 11-02-2024 Non-patient / Non-visit Dr. Román martinez MD -[facility] Work Phone: Start: 11-02-2024 ambulatory Román Sandoval Facility:[facility] Start: 11-02-2024 End: 11-04-2024 Evaluation and management of inpatient Dr. Román Sandoval MD -Intensive Care Unit Work Phone: Start: 08-03-2024 End: 08-04-2024 Emergency department patient visit Dr. Rodriguez Beavers DO -Emergency Department Work Phone: Start: 05-06-2023 End: 05-07-2023 Emergency department patient visit [facility] Start: 04-13-2023 End: 04-13-2023 Emergency department patient visit [facility] Work Phone: Start: 05-29-2022 End: 05-30-2022 Emergency department patient visit [facility] Start: 01-30-2022 End: 01-30-2022 Emergency department patient visit [facility] Start: 12-31-2021 End: 12-31-2021 Emergency department patient visit [facility] Start: 12-27-2021 End: 12-27-2021 Patient encounter procedure [facility], Specimen Start: 12-17-2021 End: 12-17-2021 Patient encounter procedure [facility] Start: 06-04-2018 Patient encounter procedure Abraham Aguilar Facility:[facility] Start: 07-17-2017 Patient encounter procedure Ashtyn Moreira Facility:[facility] Procedures Date Procedure Procedure Detail Performing [...] Date Care Activity Detail Author Start: 04-22-2025 [facility] Start: 04-21-2025 [facility] Start: 11-03-2024 Care planning and problem solving actions [facility] Start: 11-03-2024 Electrocardiographic procedure [facility] Start: 11-03-2024 Serum inorganic phosphate measurement [facility] Start: 11-03-2024 Patient discharge [facility] Start: 11-02-2024 Suicide precautions [facility] Start: 11-02-2024 Following clinical pathway protocol [facility] Start: 11-02-2024 Ambulation without limitation [facility] Start: 11-02-2024 Assessment of risk of venous thromboembolism [facility] Start: 11-02-2024 Continuous pulse oximetry [facility] Start: 11-02-2024 Inhalation therapy procedure [facility] Start: 11-02-2024 Insertion of catheter into peripheral vein [facility] Start: 11-02-2024 Measuring intake and output [facility] Start: 11-02-2024 Oxygen therapy [facility] Start: 11-02-2024 Providing care according to standard [facility] Start: 11-02-2024 Vital signs measurements [facility] Start: 11-02-2024 [facility] Start: 11-02-2024 Verification routine [facility] Start: 11-02-2024 Admission procedure [facility] Start: 11-02-2024 Seizure precautions [facility] Start: 11-02-2024 Referral to service [facility] Start: 11-02-2024 End: 11-02-2024 Suicide precautions [facility] Start: 11-02-2024 Consultation [facility] Start: 08-03-2024 [facility] Start: 08-03-2024 Suicide precautions [facility] Start: 01-30-2022 Plain chest X-ray Chest 1 View (Portable) [facility] Work Phone: Start: 01-30-2022 XR Chest Single view [facility] Work Phone: Start: 01-30-2022 End: 01-30-2022 [facility] Work Phone: Start: 12-27-2021 Ova and Parasites Ova and Parasites [facility] Work Phone: Start: 12-17-2021 Nasopharyngeal Culture Nasopharyngeal Culture [facility] Work Phone: Alanine aminotransfe rase [Enzymatic activity/volume] in Serum or Plasma [facility] Albumin [Mass/volume ] in Serum or Plasma [facility] Alkaline phosphatase [Enzymatic activity/volume] in Serum or Plasma [facility] Amphetamines [Presen ce] in Urine by Screen method >1000 ng/mL [facility] Anion gap in Serum or Plasma [facility] Benzodiazepine measu rement, urine [facility] Bilirubin, total measurement [facility] BUN/Creatinine ratio [facility] Calcium [Mass/volume ] in Serum or Plasma [facility] Carbon dioxide, tota l [Moles/volume] in Central venous blood [facility] Cocaine measurement, urine [facility] Creatinine [Mass/vol ume] in Serum or Plasma [facility] Erythrocyte mean cor puscular volume determination [facility] fentaNYL [Presence] in Urine by Screen method [facility] Glucose [Mass/volume ] in Serum or Plasma [facility] Hematocrit [Volume F raction] of Blood [facility] Hemoglobin [Mass/vol ume] in Blood [facility] Leukocytes [#/volume] in Blood [facility] Magnesium measurement [facility] Mean corpuscular hem oglobin concentration determination [facility] Mean corpuscular hem oglobin determination [facility] Measurement of renal function [facility] Methadone measurement, urine [facility] Neutrophil count [facility] Neutrophil percent differential count [facility] Patient Education [facility] Work Phone: Patient referral [facility] Work Phone: Phencyclidine [Prese nce] in Urine [facility] Platelets [#/volume] in Blood [facility] Potassium measurement [facility] Red blood cell count [facility] Red cell distributio n width determination [facility] Serum chloride measurement [facility] Sodium measurement [facility] Total protein measurement [facility] Urea nitrogen [Mass/ volume] in Serum or Plasma [facility] Urine cannabinoid measurement [facility] Urine opiate measurement [facility] Payers Date Payer Category Payer Self-pay [id number] 2020 Medicaid [id number] 2020 Medicare [id number] 2016 Unknown [id number] 2007 Unknown [id number] 1990 Unknown [id number]. [id number] Unknown [id number] 2.16.8 [id number] Unknown [id number] 2.16.8 [id number] Unknown [id number] 2.16.8 [id number] Unknown [id number] 2.16.8 [id number] Unknown [id number] 2.16.8 [id number] Unknown [id number] 2.16.8 [id number] Unknown [id number] 2.16.8 [id number] Unknown [id number] 2.16.8 [id number] Unknown [id number] 2.16.8 [id number] Unknown [id number] 2.16.8 [id number] Unknown [id number] 2.16.8 [id number] Unknown [id number] 2.16.8 [id number] Unknown [id number] 2.16.8 [id number] Social History Date Type Detail Facility Start: 12-04-2018 End: 04-13-2023 Tobacco smoking status IDIS Unknown if ever smoked [facility] Start: 1990 Sex Assigned At Male [facility] Start: 11-02-2024 End: 04-22-2025 Tobacco smoking status NHIS Smokes tobacco daily (finding) [facility] Start: 11-02-2024 End: 11-04-2024 Sex Male (finding) [facility] Sex Male [facility] Goals Date Patient Goal Desired Activity /State Functional Status Date Assessment Result Facility 11-03-2024 Functional status Ambulates;Bedside Commo [facility] Work Phone: Mental Status Date Assessment Result Facility 11-03-2024 Cognitive function Voice/Name [facility] Work Phone: Clinical Notes 04-13-2023 to 06-01-2025 Note Date & Type Note Facility 06-01-2025 Note [facility] Medical Records Department [address] [place] [address] Discharge Summary 06/01/25 1305 MR#: [id number] Acct: [id number] Name: AIMEE DUCKWORTH Rep #: [id number] : 1990 34 From: Cleveland Guardado MD PCP: Dr. Kamron Erickson MD Status:DIS VELVET Location: MS3 EE316-5 Providers Date of Admission: 05/31/25 Primary Care Physician: Dr. Kamron Erickson MD Reason For Visit: INTRACTABLE NAUSEA VOMITING Diagnosis Discharge Diagnosis (1) Nausea, vomiting, and diarrhea: Status: Acute Code(s): R11.2 - Nausea with vomiting, unspecified; R19.7 - Diarrhea, unspecified (2) Depression, major: Status: Acute Code(s): F32.9 - Major depressive disorder, single episode, unspecified Medications at Discharge Home Medications divalproex 500 mg tablet,delayed release 1,000 mg PO BID 06/02/24 albuterol sulfate 90 mcg/actuation aerosol inhaler 1 - 2 puff inhalation Q4H PRN cough 11/02/24 escitalopram oxalate 20 mg tablet 20 mg PO DAILY 11/02/24 lorazepam 1 mg tablet 1 mg PO BID 11/02/24 diclofenac sodium 75 mg tablet,delayed release 75 mg PO BID 04/21/25 Held on 06/01/25. Instructions: Resume on 06/04/25. haloperidol 5 mg tablet 5 mg PO BID 04/21/25 hydroxyzine HCl 50 mg tablet 50 mg PO TID 04/21/25 promethazine 25 mg tablet 25 mg PO Q6H PRN nausea and vomiting 7 days #30 tabs 04/22/25 azelastine 137 mcg (0.1 %) nasal spray 2 spray intranasal DAILY 05/31/25 bupropion HCl 100 mg tablet PO 05/31/25 tizanidine 4 mg tablet 8 mg PO Q8H PRN PRN low back pain 05/31/25 ondansetron 4 mg disintegrating tablet 4 mg PO Q8H PRN nausea and vomiting #10 tabs 06/01/25 Hospital Course Operations None Procedures None Summary of Care Provided Minutes Spent on Discharge: 33 Hospital Course: Per HPI: AIMEE DUCKWORTH, is a 34 M who presents to the emergency room with chief complaint of nausea and vomiting. Onset of symptoms began approximately 3 days ago with nausea, vomiting and diarrhea. The patient was seen earlier in the emergency room and sent home only to return with worsening symptoms of nausea and vomiting this evening. Patient describes having some lower left abdominal quadrant pain and is feeling dehydrated and weak. Patient does admit to smoking marijuana routinely. CT scan was noted to have some fluid-filled loops of bowel air consistent with gastroenteritis. CBC and BMP were unremarkable. Patient denies any fevers or chills and/or shortness of breath at present time will be admitted to general medical floor for observation with IV hydration and antiemetic medication. Hospital Course: 1. Intractable nausea vomiting and diarrhea secondary to THC versus viral gastroenteritis???3 4-year-old male presented to the hospital with a complaint of nausea, vomiting, and diarrhea. Started about 3 days prior to admission and he does have a history of using marijuana routinely. He was started on multiple medications for nausea and started to complain about esophagus pain because of the violence of his vomiting as well as burning. He was started on aggressive IV fluids and stool studies were negative. Today on the day of discharge every vital signs were normal and lab work was unremarkable. He indicated that he was able to tolerate p.o. intake without any nausea or vomiting and I discussed with him the possibility for discharge. He expressed understanding of the risk and benefits of going home and would like to go home today. I will provide him with antiemetic medication and recommend outpatient follow-up with his primary care provider. 2. Anxiety, depression, possible schizophrenia or other chronic medical conditions which complicate his care. His home medications were continued where appropriate Physical Exam Narrative General: Alert, Oriented x3, Cooperative, No apparent distress HEENT: Atraumatic, PERRLA, EOMI, Normocephalic Oral: Moist Mucosa Neck: Supple, No JVD Lungs: Diminished, Normal air movement, No rhonchi, No wheeze, No rales Cardiovascular: Regular rate, Regular Rhythm, Normal S1, Normal S2, No murmurs, chest pain to palpation Abdomen: Soft, Non Tender, Non-Distended, No Hepato-splenomegaly Extremities: No edema, Capillary Refill Less than 3 Seconds Skin: No rashes, No breakdown Musculoskeletal: No Tenderness to Palpation of Joints or Extremities Neurological: No focal neurological deficits, moves all extremities Psych/Mental Status: Normal Affect, Appropriate Weight / BMI Weight Weight: 253 lb 15.56 oz Body Mass Index (BMI) 34.4 ABG / Lab / Microbiology Data 06/01/25 05:56 06/01/25 05:56 Laboratory: Laboratory Results - last 24 hr 06/01/25 05:56: WBC 12.9 H, RBC 4.45 L, Hgb 13.9, Hct 41.2, MCV 92.6, MCH 31.2, MCHC 33.7, RDW Std Deviation 44.1 H, RDW Coeff of Rohith 13.1, Plt Count 218, MPV 9.4, Immature Gran % (Auto) 0.500, Neut % (Auto) 68.0, L (more content not included)... [facility] 05-31-2025 Note [facility] Medical Records Department [address] [place] [address] History Physical Exam 05/31/25 0351 MR#: [id number] Acct: [id number] Name: AIMEE DUCKWORTH Rep #: [id number] : 1990 34 From: Ren Boggs MD PCP: Dr. Kamron Erickson MD Status:REG ER Location: ED HPI - General General Date of Admission: 05/31/25 Date of Service: 05/31/25 Chief Complaint: Intractable nausea and vomiting HPI Narrative AIMEE DUCKWORTH, is a 34 M who presents to the emergency room with chief complaint of nausea and vomiting. Onset of symptoms began approximately 3 days ago with nausea, vomiting and diarrhea. The patient was seen earlier in the emergency room and sent home only to return with worsening symptoms of nausea and vomiting this evening. Patient describes having some lower left abdominal quadrant pain and is feeling dehydrated and weak. Patient does admit to smoking marijuana routinely. CT scan was noted to have some fluid-filled loops of bowel air consistent with gastroenteritis. CBC and BMP were unremarkable. Patient denies any fevers or chills and/or shortness of breath at present time will be admitted to general medical floor for observation with IV hydration and antiemetic medication. [facility] Medical History Spinal stenosis Schizophrenia Depression Anxiety Smoker Schizophrenia Migraines Asthma Home Medications ???Medication ???Instructions ???Recorded ???Last Taken ???Type divalproex 500 mg tablet,delayed 1,000 mg PO BID 06/02/24 11/02/24 History release albuterol sulfate 90 mcg/actuation 1 - 2 puff inhalation Q4H PRN co ugh 11/02/24 Unknown History aerosol inhaler escitalopram oxalate 20 mg tablet 20 mg PO DAILY 11/02/24 11/02/24 History lorazepam 1 mg tablet 1 mg PO BID 11/02/24 Unknown Histo ry diclofenac sodium 75 mg 75 mg PO BID 04/21/25 Unknown Hist ory tablet,delayed release haloperidol 5 mg tablet 5 mg PO BID 04/21/25 Unknown Histo ry hydroxyzine HCl 50 mg tablet 50 mg PO TID 04/21/25 Unknown Hist ory promethazine 25 mg tablet 25 mg PO Q6H PRN nausea and Unknown Rx vomiting 7 days #30 tabs azelastine 137 mcg (0.1 %) nasal 2 spray intranasal DAILY 05/31/25 Unknown History spray bupropion HCl 100 mg tablet PO 05/31/25 Unknown History tizanidine 4 mg tablet 8 mg PO Q8H PRN PRN low back pain 05/31/25 Unknown History Allergy/AdvReac Type Severity Reaction Status Date / Time Sulfa (Sulfonamide Allergy Unknown Verified 05/31/25 00:41 Antibiotics) sulfisoxazole (From Allergy Hives Verified 05/31/25 00:41 Gantrisin) Social History household members: family Smoking Status: Current every day smoker tobacco type: cigarettes and e-cigarettes ROS Constitutional Constitutional: Reports weakness; Denies chills or fever(s) Eyes Eyes: Denies blurry vision ENT HEENT: Denies abnormal hearing Cardiovascular Cardiovascular: Reports chest pain Respiratory/Chest Respiratory/Chest: Denies shortness of breath at rest Gastrointestinal Gastrointestinal: Reports abdominal pain, diarrhea, hematemesis, nausea and vomiting Genitourinary Genitourinary: Denies dysuria Musculoskeletal Musculoskeletal: Denies back pain Integumentary Integumentary: Denies dry skin Neurologic Neurologic: Denies abnormal gait Psychiatric Psychiatric: Reports anxiety Vital Signs Vital Signs Vital Signs: 05/31/25 00:42 05/31/25 00:46 05/31/25 01:46 Temperature 98.6 F 98.6 F 98.8 F Temperature Source Oral Axillary Axillary Pulse Rate 115 H 115 H 135 H Respiratory Rate 19 H 19 H 18 Blood Pressure 160/96 H 160/96 H 159/96 H Blood Pressure Mean 117 117 117 Pulse Ox 99 100 100 Oxygen Delivery Method Room Air Room Air 05/31/25 02:00 05/31/25 03:32 Temperature 98.8 F 98.8 F Temperature Source Oral Pulse Rate 145 H 127 H Respiratory Rate 18 18 Blood Pressure 138/81 H 141/99 H Blood Pressure Mean 100 113 Pulse Ox 100 97 Oxygen Delivery Method Room Air Weight Weight: 251 lb 15.814 oz Body Mass Index (BMI) 34.2 Physical Exam Const oriented x3 General Appearance: cooperative and well developed HEENT normocephalic and head/scalp atraumatic Eyes PERRL Neck no lymphadenopathy Lymph Lymphatic: no lymphadenopathy noted Resp normal respiratory effort, normal air movement and clear to auscultation bilaterally Cardio regular rhythm, S1 normal heart sound and S2 normal heart sound Rate: tachycardic GI normal to inspection, nondistended, normoactive bowel sounds and soft to palpation Palpation: tender LLQ Extremity normal capillary refill Skin General Skin Exam: no breakdown Neuro no focal (more content not included)... [facility] 04-22-2025 Discharge summary [facility] 04-21-2025 Discharge summary [facility] 04-21-2025 Radiology Diagnostic study note [facility] Imaging Services [address] [place], [place] [address] Abdomen/Pelvis W IV Cont ONLY MR#: [id number] Acct: [id number] Name: AIMEE DUCKWORTH Rep #: [id number] : 1990 M 34 From: Blessing Weir MD PCP: Dr. Kamron Erickson MD Status: REG ER Study:Abdomen/Pelvis W IV Cont ONLY Date of E xam: 04/21/25 Exam# [id number] Ordering Dr: Violet York DO PROCEDURE: ABDOMEN/PELVIS [...] pneumatosis coli. Mild diffuse spondylosis. Reading Location: [place] [address] CC: Dr. Kamron Erickson MD; Diomedes York DO ~ Carriage Setter: Signed [facility] 04-21-2025 Hospital Discharge instructions Additional Instructions Your [...] ER should you have any further concerns [facility] Work Phone: 11-04-2024 Note [facility] Medical Records Department [address] [place] [address] Discharge Summary 11/04/24 0829 MR#: [id number] Acct: [id number] Name: AIMEE DUCKWORTH Rep #: [id number] : 1990 34 From: Román Sandoval MD PCP: Dr. Kamron Erickson MD Status:DIS IN [place] [facility] [place] [id number] Providers Date of Admission: 11/02/24 Date of [...] 234 mg IM (more content not included)... [facility] 11-03-2024 Progress note Note Date/Time November 03, 2024 8:00am [facility] Medical Records Department [address] [place] [address] Progress Note - Hospitalist 11/03/24 0715 MR#: [id number] Acct: [id number] Name: AIMEE DUCKWORTH Rep #:[id number] : 1990 34 From: Román Sandoval MD PCP: Dr. Kamron Erickson MD Status:ADM IN Location: ICU ICU-1 Reason for Visit Reason for Visit: Diagnoses [...] % (Auto) 54.1, Lymph % (Auto) 24.9, Ware % (Auto) 18.0 H, Eos % (Auto) [...] % (Auto) 63.5, Lymph % (Auto) 19.2, Ware % (Auto) 16.0 H, Eos % (Auto) [...] Minutes A Charges/Coding Visit Charges Inpatient E&M: 23727 Subs Hosp L2 11/03/24 0800 <Electronically signed by Román Sandoval MD> Cosigner Signature (if applicable): CC: ~ Signed [facility] Work Phone: 1(989) 521-308104-02-2025 Progress note [facility] Medical Records Department [address] [place] [address] Progress Note - Hospitalist 11/03/2415 MR#: [id number] Acct: [id number] Name: AIMEE DUCKWORTH Rep #:[id number] : 1990 34 From: Román Sandoval MD PCP: Dr. Kamron Erickson MD Status:ADM IN [facility] Reason for Visit Reason for Visit: Diagnoses [...] % (Auto) 54.1, Lymph % (Auto) 24.9, Ware % (Auto) 18.0 H, Eos % (Auto) [...] % (Auto) 63.5, Lymph % (Auto) 19.2, Ware % (Auto) 16.0 H, Eos % (Auto) [...] Minutes A Charges/Coding Visit Charges Inpatient E&M: 29014 Subs Hosp L2 11/03/24 0800 Cosigner Signature (if applicable): CC: ~ Signed [facility]04-01-2025 History and physical note Author Román Sandoval [facility] Note Date/Time November 02, 2024 1:11 pm [facility] Medical Records Department [address] [facility] [place] [address] H&P Exam - Hospitalist 11/02/24 1306 MR#: [id number] Acct: [id number] Name: AIMEE DUCKWORTH Rep #:[id number] : [...] % (Auto) 54.1, Lymph % (Auto) 24.9, Ware% (Auto) 18.0 H, Eos % (Auto) 2.1, [...] Multi Select Codes Visit Charges Visit Charges: 70500 Init Hosp L3 Hospitalists' Procedures Procedures: 51134 Advncd Care Plan 30 Min 11/02/24 1311 <Electronically signed by Román Sandoval MD> Cosigner Signature (if applicable): CC: Dr. Román Sandoval MD; Dr. Kamron Erickson MD~ Signed [facility] Work Phone: 1(473) 349-716404-01-2025 Discharge summary Author Tramaine Tovar [facility] Note Date/Time November 02, 2024 12:5 7pm [facility] Medical Records Department [address] [place] [address] Emergency Department Summary 11/02/24 MR#: [id number] Acct: [id number] Name: AIMEE DUCKWORTH Rep #:[id number] : 1990 34 From: Tramaine Tovar MD PCP: Dr. 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 Patient has attempted suicide in [facility]. Patient has been hospitalized for suicidal ideation/attempt. [...] % (Auto) 54.1 Lymph % (Auto) 24.9 Ware % (Auto) 18.0 H Eos % (Auto) [...] which may be due to the trazodone. AR interval is under 58 ms. Cures duration 110 ms. QT duration 458 ms. [place] is normal.) Management Discussion w/another healthcare provider: Hospitalist (Hospitalist was paged at 1252 for admission. Case was discussed with Dr. Serrato who accepted patient. Full admit ICU) Critical Care Time Critical Care Time: Yes Critical care time (excluding procedures): 30-74 minutes (33), Including time spent: (History, physical, documentation, independent rotation laboratory results and EKG), Discussing w/Patient &/or Family/Flight Operation Coordinator, Discussing w/Consultants and Arranging Admission or Transfer Discharge Plan Dx/Rx/DC Orders Clinical Impression: Intentional overdose, Prolonged QT interval, Intentional overdose of trazodone,Somnolence, Depression, major Disposition Disposition: Acute Care Hospital [facility] What to do if you have Problems For any increased pain, shortness of breath, bleeding, nausea or vomiting, chestpain, or any unexpected problems, contact your Primary Care Provider. Call [facility] ([phone]) or report to the closest Emergency Room. Call 911 if necessary. 11/02/24 1257 <Electronically signed by Tramaine Tovar MD> Cosigner Signature (if applicable): CC: Dr. Kamron Erickson MD ~ Signed [facility] Work Phone: 1(626) 731-236904-01-2025 Evaluation note* Diagnosis Onset Date Resolution Status Admit Date Intentional overdose of trazodone acute November 02, 2024 12:55pm Prolonged QT interval acute Nov 12:55pm [facility] Work Phone: 1(708) 947-263804-01-2025 History and physical note [facility] Medical Records Department [address] [place] [address] H&P Exam - Hospitalist 11/02/24 1306 MR#: [id number] Acct: [id number] Name: AIMEE DUCKWORTH Rep #:[id number] : [...] % (Auto) 54.1, Lymph % (Auto) 24.9, Ware% (Auto) 18.0 H, Eos % (Auto) 2.1, [...] Multi Select Codes Visit Charges Visit Charges: 94949 Init Hosp L3 Hospitalists' Procedures Procedures: 11311 Advncd Care Plan 30 Min 11/02/24 1311 Cosigner Signature (if applicable): CC: Dr. Román Sandoval MD; Dr. Kamron Erickson MD~ Signed [facility]04-01-2025 Discharge summary [facility] Medical Records Department [address] [place] [address] Emergency Department Summary 11/02/24 MR#: [id number] Acct: [id number] Name: AIMEE DUCKWORTH Rep #:[id number] : 1990 34 From: Tramaine Tovar MD PCP: Dr. 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 Patient has attempted suicide in [facility]. Patient has been hospitalized forsuicidal ideation/attempt. Patient [...] % (Auto) 54.1 Lymph % (Auto) 24.9 Ware % (Auto) 18.0 H Eos % (Auto) [...] which may be due to the trazodone. AR interval is under 58 ms. Cures duration 110 ms. QT duration 458 ms. [place] is normal.) Management Discussion w/another healthcare provider: Hospitalist (Hospitalist was paged at 1252 for admission.Case was discussed with Dr. Serrato who accepted patient. Full admit ICU) Critical Care Time Critical Care Time: Yes Critical care time (excluding procedures): 30-74 minutes (33), Including time spent: (History, physical, documentation, independent rotation laboratory results and EKG), Discussing w/Patient &/orFamily/Flight Operation Coordinator, Discussing w/Consultants and Arranging Admission or Transfer Discharge Plan Dx/Rx/DC Orders Clinical Impression: Intentional overdose, Prolonged QT interval, Intentional overdose of trazodone,Somnolence, Depression, major Disposition Disposition: Acute Care Hospital [facility] What to do if you have Problems For any increased pain, shortness of breath, bleeding, nausea or vomiting, chestpain, or any unexpected problems, contact your Primary Care Provider. Call [facility] ([phone]) or report tothe closest Emergency Room. Call 911 if necessary. 11/02/24 1257 Cosigner Signature (if applicable): CC: Dr. Kamron Erickson MD ~ Signed [facility]09-10-2023 Discharge summary Author Gustavo Garcia [facility] April 13, 2023 7:22am Note Date/Time April 13, 2023 4:18am [facility] Medical Records Department [address] [facility] [place] [address] Emergency Department Summary 04/13/23 MR#: [id number] Acct: [id number] Name: AIMEE DUCKWORTH Rep #:[id number] : [...] episode. He is on any blood thinners. [facility] Medical History Asthma Migraines Home Medications escitalopram oxalate 20 mg tablet 20 mg PO DAILY 12/31/21 [History Last Taken Unknown] ondansetron 4 mg disintegrating tablet 4 mg PO Q8H PRN nausea and vomiting #10 tabs 12/31/21 [Rx Last Taken Unknown] paliperidone 3 mg tablet,extended release 24 hr 3 mg PO DAILY 05/30/22 [History Last Taken Unknown] montelukast 10 mg [...] 82.3 H Lymph % (Auto) 11.2 L Ware % (Auto) 4.5 Eos % (Auto) 1.3 [...] 7:15 EDT Reading Location ID and State: [facility] / [place] , Service support , Discharge Plan Triage [...] your Primary Care Provider. Call [facility] ([phone]) or report to the closest Emergency Room. Call 911 if necessary. 04/13/23 0722 <Electronically signed by Gustavo Garcia DO> Cosigner Signature (if applicable): CC: Dr. Kamron Erickson MD ~ Signed [facility] Work Phone: Discharge summary Author Tramaine Tovar [facility] Note Date/Time November 02, 2024 12:5 7pm [facility] Medical Records Department [address] [place] [address] Emergency Department Summary 11/02/24 MR#: [id number] Acct: [id number] Name: AIMEE DUCKWORTH Rep #:[id number] : 1990 34 From: Tramaine Tovar MD PCP: Dr. 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 [facility] for suicidal [...] % (Auto) 54.1 Lymph % (Auto) 24.9 Ware % (Auto) 18.0 H Eos % (Auto) [...] which may be due to the trazodone. AR interval is under 58 ms. Cures duration 110 ms. QT duration 458 ms. [place] is normal.) Management Discussion w/another healthcare provider: Hospitalist (Hospitalist was paged at 1252 for admission. Case was discussed with Dr. Serrato who accepted patient. Full admit ICU) Critical Care Time Critical Care Time: Yes Critical care time (excluding procedures): 30-74 minutes (33), Including time spent: (History, physical, documentation, independent rotation laboratory results and EKG), Discussing w/Patient &/or Family/Flight Operation Coordinator, Discussing w/Consultants and Arranging Admission or Transfer Discharge Plan Dx/Rx/DC Orders Clinical Impression: Intentional overdose, Prolonged QT interval, Intentional overdose of trazodone,Somnolence, Depression, major Disposition Disposition: Acute Care Hospital [facility] What to do if you have Problems For any increased pain, shortness of breath, bleeding, nausea or vomiting, chestpain, or any unexpected problems, contact your Primary Care Provider. Call [facility] ([phone]) or report to the closest Emergency Room. Call 911 if necessary. 11/02/24 1257 <Electronically signed by Tramaine Tovar MD> Cosigner Signature (if applicable): CC: Dr. Kamron Erickson MD ~ Signed [facility] Work Phone: Discharge summary Author Diomedes York [facility] Note Date/Time April 21, 2025 3:29am [facility] Medical Records Department [address] [place] [address] Emergency Department Summary 04/21/25 MR#: [id number] Acct: [id number] Name: AIMEE DUCKWORTH Rep #:[id number] : [...] secondary to this he presents for evaluation. [facility] Medical History Spinal stenosis Schizophrenia Depression Anxiety [...] 81.1 H Lymph % (Auto) 12.5 L Ware % (Auto) 5.4 Eos % (Auto) 0.2 [...] pneumatosis coli. Mild diffuse spondylosis. Reading Location: [place] [address] Discharge Plan Triage Chief Complaint: Nausea/Vomiting ED [...] Referrals: Kamron Erickson MD [Primary Care Provider, [facility]] Activity Restrictions/Additional Instructions: Your CT scan showed irritation to your stomach and intestines consistent with gastroenteritis. This is a viral stomach infection that will last anywhere from1 to 10 days with the average being 3 days. Please keep yourself well-hydrated and take the prescribed medication as directed to help control symptoms. Returnto the ER should you have any further concerns Print Language: Uzbek Disposition Disposition: Home, Self Care What to do if you have Problems For any increased pain, shortness of breath, bleeding, nausea or vomiting, chestpain, or any unexpected problems, contact your Primary Care Provider. Call [facility] Registry ([phone]) or report to the closest Emergency Room. Call 911 if necessary. 04/21/25 0329 <Electronically signed by Diomedes York DO> Cosigner Signature (if applicable): CC: Dr. Kamron Erickson MD ~ Signed [facility] Work Phone: Discharge summary Author Rodriguez Nimesh [facility] Note Date/Time April 22, 2025 11:55am [facility] Medical Records Department [address] [place] [id number] Emergency Department Summary 04/22/25 MR#: [id number] Acct: [id number] Name: AIMEE DUCKWORTH Rep #:[id number] : 1990 34 From: Rodriguez Murrell PCP: Dr. Kamron Erickson MD Status:DEP ER Location: ED HPI History of Present Illness Chief Complaint: Abd Pain [facility] Medical History Spinal stenosis Schizophrenia Depression Anxiety [...] Method Room Air Room Air Room Air 09/19/25 11:54 Temperature 98.1 F Temperature Source Pulse Rate 68 Respiratory Rate 16 Blood Pressure 152/94 H Blood Pressure Mean 113 Pulse Ox 97 Oxygen Delivery Method [facility] [place] Narrative Medical decision making narrative: HISTORY OF [...] reviewed, Vital signs reviewed Constitutional: please see [facility] HENT: MMM Eyes: Pupils equal round and [...] History obtained from others: Mother Consults: none [facility] Narrative: The patient was initially hypertensive [...] Discharge home This note was generated with [employer] dictation software. It may contain incorrectwords, spelling, [...] (Auto) 71.5 H Lymph % (Auto) 19.5 Ware % (Auto) 7.8 Eos % (Auto) 0.3 [...] Clarity Clear Urine pH 6.5 Ur Specific [place] 1.015 Urine Protein 100 H Urine Glucose [...] further outpatient evaluation and management. Print Language: Uzbek Disposition Disposition: Home, Self Care Discharge Date/Time: 04/22/25 11:55 What to do if you have Problems For any increased pain, shortness of breath, bleeding, nausea or vomiting, chestpain, or any unexpected problems, contact your Primary Care Provider. Call [facility] ([phone]) or report to the closest Emergency Room. Call 911 if necessary. 04/22/25 1536 <Electronically signed by Rodriguez Beavers DO> Cosigner Signature (if applicable): CC: Dr. Kamron Erickson MD ~ Signed [facility] Work Phone: Evaluation noteNo assessment information available [facility] Work Phone: Evaluation note* Diagnosis Onset Date Resolution Status Admit Date Intentional overdose of trazodone acute November 02, 2024 12:55pm Prolonged QT interval acute Apr 2024 12:55pm [facility] Work Phone: History and physical note Author Román Sandoval [facility] Note Date/Time November 02, 2024 1:11 pm [facility] Medical Records Department [address] [place] [address] H&P Exam - Hospitalist 11/02/24 1306 MR#: [id number] Acct: [id number] Name: AIMEE DUCKWORTH Rep #:[id number] : [...] % (Auto) 54.1, Lymph % (Auto) 24.9, Ware% (Auto) 18.0 H, Eos % (Auto) 2.1, [...] Multi Select Codes Visit Charges Visit Charges: 23209 Init Hosp L3 Hospitalists' Procedures Procedures: 82454 Advncd Care Plan 30 Min 11/02/24 1311 <Electronically signed by Román Sandoval MD> Cosigner Signature (if applicable): CC: Dr. Román Sandoval MD; Dr. Kamron Erickson MD~ Signed [facility] Work Phone: Hospital Discharge instructionsAdditional Instructions Thank [...] (Dr. Colbert) for further outpatient evaluation and management.[facility] Work Phone: Reason for referral (narrative)No reason for referral information [facility] Work Phone: Summary Purpose Family History No Family History Records FoundNo Family History Records FoundNo Family History Records Found Advance Directives No Advanced Directives Records Found Advance Directive Response Recorded Date/ Time Living Will No December 04, 2018 12 :33pm Power of Camp Boss No December 04, 2018 12:33pm Advance Directive Response Recorded Date/ Time Living Will No December 31, 2021 1 :58am Power of Camp Boss No December 31, 2021 1:58am Advance Directive Response Recorded Date/ Time Living Will No January 30, 2022 3:53pm Power of Camp Boss No January 30 3:53pm Advance Directive Response Recorded Date/ Time Living Will No May 29 9:05pm Power of Camp Boss No May 29, 2022 9:05pm Advance Directive Response Recorded Date/ Time Living Will No April 13, 2023 4:10am Power of Camp Boss No April 4:10am Advance Directive Response Recorded Date/ Time Living Will No November 02, 2024 11:27am Do you have a Healthcare Power of Camp Boss? No November 02, 2024 11:27am Living Will No August 03, 024 2:14pm Do you have a Healthcare Power of Camp Boss? No August 03, 2024 2:14pm Advance Directive Response Recorded Date/ Time Living Will No November 02, 2024 1:54pm Do you have a Healthcare Power of Camp Boss? No November 02, 2024 1:54pm Living Will No August 03, 024 2:14pm Do you have a Healthcare Power of Camp Boss? No August 03, 2024 2:14pm Advance Directive Response Recorded Date/ Time Do you have a Healthcare Power of Camp Boss? No April 21, 2025 2:04am Advance Directive Response Recorded Date/ Time Do you have a Healthcare Power of Camp Boss? No April 21, 2025 2:04am Do you have a Healthcare Power of Camp Boss? No April 22, 2025 7:38am Chief Complaint and Reason for Visit Chief Complaint EORDER nausea and vomiting x1 Chief Complaint EORDER nausea and vomiting x1 cough Chief Complaint cough Homicidal Chief Complaint N/V Chief Complaint Admit Date August 03, 2024 12:44pm INTENTIONAL DRUG OVERDOSE November 02 12:55pm overdose November 02, 2024 1:06 pm Reason for Visit Admit Date Intentional overdose of trazodone November 02, 2024 12:55pm Prolonged QT interval November 02, 2024 12 :55pm Chief Complaint Admit Date August 03, 2024 12:44pm INTENTIONAL DRUG OVERDOSE [...] section and content) DATE CREATED AUTHOR 07/12/2018 [facility] DATE CREATED AUTHOR AUTHOR'S MIKE ATSACHIN 05/13/2023 [facility] DATE CREATED AUTHOR AUTHOR'S ORGANIZ ATION 06/11/2025 [facility] Goals (unrecognized section and content) [...] April 22, 2025 Dr. Rodriguez Beavers DO Attending physician Active Start: April 22, 2025 End: April 22, 2025 Dr. Rodriguez Beavers DO Emergency Depart ent Physician Active Start: April 22, 2025 [...] BE BASED ON THE PRIMARY CLINICAL RECORDS. [facility] CRE [facility]. provides no warranty or guarantee of the accuracy or completeness of information in this document.
[2025-06-30 19:00] LABS: Differential Indicated SCAN CRITERIA MET
[2025-06-30 19:02] LABS: Differential Comment SCANNED
[2025-06-30 19:39] VITALS: BP 126/80; PULSE 96; RESP 18; O2SAT 98
--- NOTE | 2025-06-30 19:41 | ED.RN ---
pt was caught drinking out of the sink,pt advised to stop doing that because he keeps vomitting. pt states that he does smoke marjuana and he vomits all the time,but he feels like this is worse.Pt advised to stop smoking and stop drinking out of the sink.
--- NOTE | 2025-06-30 19:54 | CT_ITS ---
PROCEDURE: ABDOMEN/PELVIS W IV CONT ONLY 06/30/2025 REASON FOR EXAM: NAUSEA AND VOMITING TECHNIQUE: Procedure Code: CTABDPELIV Modality: CT Procedure: ABDOMEN/PELVIS W IV CONT ONLY Coronal and Sagittal reconstruction series were provided. CONTRAST: VOLUME: mL One or more dose reduction techniques were used (e.g., Automated exposure control, adjustment of the mA and/or kV according to patient size, use of iterative reconstruction technique. COMPARISON: 05/30/2025. FINDINGS: The visualized lung bases are clear. Dsqh-ot-orjgslpz wall thickening is noted diffusely throughout the colon and rectum, more pronounced on the right. This is compatible with colitis, possibly an inflammatory bowel disorder such as ulcerative colitis. No evidence of a bowel obstruction. The appendix is visualized and normal-appearing. Mild fatty liver. No other acute abdominal or pelvic process is identified. No intraperitoneal free air or free fluid. No lymphadenopathy. No acute osseous abnormality. A small degenerative synovial herniation pit is noted in the subcapital region of the right femoral neck. CT/Abdomen/Pelvis W IV Cont ONLY IMPRESSION: Pcnz-sf-mqcxkahc wall thickening diffusely throughout the colon and rectum, com patible with colitis. Similar but less pronounced findings are noted on the previous study. This could represent an inflammatory bowel disorder such as ulcerative colitis. Please correlate clinically. Reading Location: [id number]
[2025-06-30 21:00] VITALS: BP 143/89; PULSE 67; RESP 18; O2SAT 98
[2025-06-30] MEDS: DiphenhydrAMINE 25 MG, ChlorproMAZINE 25 MG in 0.9% Normal Saline (100mL Bag) 98.5 ML 200 MG IV (21:58)
== END 2025-06-30 23:43 | disposition home or self-care (01) ==
PROVIDERS: Emergency Provider Emergency Medicine; PCP Family Medicine; Visit Provider Emergency Medicine
DX: R11.2 Nausea with vomiting, unspecified (principal); F20.9 Schizophrenia, unspecified; F12.20 Cannabis dependence, uncomplicated; F17.210 Nicotine dependence, cigarettes, uncomplicated; R10.9 Unspecified abdominal pain; R19.7 Diarrhea, unspecified; F41.9 Anxiety disorder, unspecified; D72.829 Elevated white blood cell count, unspecified; F32.A Depression, unspecified; Z79.899 Other long term (current) drug therapy; F17.290 Nicotine dependence, other tobacco product, uncomplicated
CPT/HCPCS: 74177; 80053; 83690; 85025; 96365; 96366; 96368; 96375; 99283; Q9967; A4216; J2405

== ENCOUNTER 2025-07-20 07:19 | Day surgery (SDC) | payer MEDICARE, MEDICAID, SELFPAY ==
--- NOTE | 2025-07-19 11:12 | PAT.ANE_ITS ---
Pre-Assessment Diagnosis/Proposed Procedure Planned Operative Procedure(s): EGD Anesthesia History Anesthesia History - manager software: Anesthesia History - manager software Hx Hospitalization Yes: [facility] ADM, [facility] 07/19/25 10:22 ADM Any Problems With Anesthesia No 07/19/25 10:22 Cholinesterase deficiency No 07/19/25 10:22 You/Your Family Experience No 07/19/25 10:22 fever (hyperthermia) with Relationship Recent Exposure to Contagious Disease Does patient have nerve No 07/19/25 10:22 stimulator Patient instructed to have device shut off --Does patient have Pacemaker or ICD? When Was Last Pacemaker Check QUESTION #4 FULL TEXT: You/Your Family Experience fever (hyperthermia) with Anesthesia Last Oral Intake Last Oral intake: Last Oral Intake NPO since Meds taken in AM with sips of water? Meds patient instructed to take am of surgery PONV PONV - manager software: PONV - manager software Female No 07/19/25 10:22 HX of Motion Sickness No 07/19/25 10:22 HX of N/V After Surgery No 07/19/25 10:22 Non-Smoker No 07/19/25 10:22 Duration of Surgery greater No 07/19/25 10:22 than 60 minutes Number of Risk Factors PONV Score Height & Weight Height & Weight: Anesthesia: Height & Weight Height 6 ft 06/30/25 17:17 Respiratory Assessment Respiratory Assessment - manager software: Respiratory Tract Infection Hx - manager software Hx Respiratory Tract Infection No 07/19/25 10:22 STOP Sleep Apnea STOP Sleep Apnea - manager software: STOP Sleep Apnea - manager software Hx Hypertension No 07/19/25 10:22 Hx Sleep Apnea No 07/19/25 10:22 CPAP BIPAP Do you snore loudly (louder No 07/19/25 10:22 than talking or can be heard Do you often feel tired/ No 07/19/25 10:22 fatigued/ sleepy during daytime? Has anyone observed you stop No 07/19/25 10:22 breathing during sleep? STOP Results Negative 07/19/25 10:22 QUESTION #5 FULL TEXT : Do you snore loudly (louder than talking or can be heard through closed doors)? Tobacco Use History Tobacco Use History - manager software: Tobacco Use History - manager software Tobacco Use Smoking Status Current every day smoker 07/19/25 10:22 Hx Tobacco Use No 07/19/25 10:22 Years Smoking Packs Smoked per Day Smoking Cessation Date was within the last 15 years Hx Smoking Cessation Date Hx Smoking Cessation Counseling Hematologic Medial History Hematologic Hx - manager software: Hematologic Medical Hx - electro optics engineer Hx of Blood Transfusion No 07/19/25 10:22 Hx of Transfusion in last 3 No 07/19/25 10:22 Months Date of Last Transfusion (if within last 3 months) Ever experience any problems No 07/19/25 10:22 with transfusion(s)? Specify any problems Hx of Preganancy in last 3 N/A 07/19/25 10:22 Months Nurse Filling Out Transfusion VCHRISTIN 07/19/25 10:22 & Questions: Date: 07/19/25 07/19/25 10:22 Time: 10:24 07/19/25 10:22 Patient unable to answer at this time (ie. confused, unrespo /Reproduction History /Reproductive History - manager software: /Reproductive Hx- manager software Hx Now No 07/19/25 10:22 Gestational Age (in weeks): EDC: Hx Hx Para Hx Section SAB No 07/19/25 10:22 Does the father of the baby or his family experience fever w Father of the baby Malignant Hypertension history comment [facility] Medical History (Updated 07/19/25 @ 10:22 by Valeria Evans) Wears glasses Marijuana use Back pain Vapes nicotine containing substance Spinal stenosis Schizophrenia Depression Anxiety Smoker Schizophrenia Migraines Asthma Home Medications ?Medication ?Instructions ?Recorded ?Last Taken ?Type divalproex 500 mg tablet,delayed 1,500 mg PO QHS 06/0211/02/24 History release albuterol sulfate 90 mcg/actuation 1 - 2 puff inhalati on Q4H PRN cough 11/02/24 Unknown History aerosol inhaler escitalopram oxalate 20 mg tablet 20 mg PO DAILY 11/0211/02/24 History haloperidol 5 mg tablet 5 mg PO BID 04/21/25 Unknown History hydroxyzine HCl 50 mg tablet 50 mg PO TID PRN anxiety 04/21/25 Unknown History bupropion HCl 100 mg tablet 100 mg PO DAILY 05/31/25 U nknown History tizanidine 4 mg tablet 8 mg PO Q8H PRN PRN low back pain 05/31/25 Unknown History ondansetron 4 mg disintegrating 4 mg PO Q8H PRN PRN Na usea #10 tabs 06/30/25 Unknown Rx tablet scopolamine base 1 mg over 3 days 1 patch transdermal Q3D PRN nausea 07/04/25 Unknown Rx transdermal patch 1 month #10 ea Allergy/AdvReac Type Severity Reaction Status Date / Time Sulfa (Sulfonamide Allergy Unknown Verified 07/19/25 10:12 Antibiotics) sulfisoxazole (From Allergy Hives Verified 07/19/25 10:12 Gantrisin) Surgical History (Updated 07/19/25 @ 10:22 by Valeria Evans) Hx of wisdom tooth extraction Social History (Updated 07/04/25 @ 16:01 by La Choi) household members: family Smoking Status: Current every day smoker tobacco type: cigarettes and e- cigarettes substance use type: marijuana Audit: Pertinent Findings Pertinent Findings EKG Perinent findings: [facility] Cardiovascular Services [address] [place] [id number] 12 Lead EKG 11/03/24 0504 MR#: [id number] Acct: [id number] Name: AIMEE DUCKWORTH Rep #: [id number] : 1990 34 From: Manuel Kim MD Attending Dr: Dr. Román Sandoval MD Status: ADM IN Ordering Dr: Román Sandoval MD Date: 11/03/24 Location: ICU Sex: M C Admitted: 11/02/24 Test Reason : OD Blood Pressure : */* mmHG Vent. Rate : 75 BPM Atrial Rate : 75 BPM P-R Int : 166 ms QRS Dur : 102 ms QT Int : 404 ms P-R-T Axes : 39 47 60 degrees QTcB Int : 451 ms Normal sinus rhythm Normal ECG Confirmed by Manuel Kim ([id number]), editor at large JANELL RIVERA ([id number]) on 11/03/2024 7:58:31 AM Referred By: JEZ Confirmed By: Manuel Kim 11/03/24 0758 Date Manuel Kim MD CC: Dr. Román Sandoval MD; Dr. Yovani Erickson MD ~ Signed Additional pertinent findings: [facility] Imaging Services [address] [place], [place] [id number] Chest PA and Lateral MR#: [id number] Acct: [id number] Name: AIMEE DUCKWORTH Rep #: [id number] : 1990 M 34 From: Chano Aden MD PCP: Dr. Yovani Erickson MD Status: REG ER Study: Chest PA and Lateral Date of Exam: 05/31/25 Exam# [id number] Ordering Dr: Diomedes York DO PROCEDURE: CHEST PA AND LATERAL 05/30/2025 REASON FOR EXAM: ABD/CHEST PAIN TECHNIQUE: Procedure Code: RADCXR Modality: DX Procedure: CHEST PA AND LATERAL FINDINGS: No focal consolidation. No pleural effusion or pneumothorax. Cardiac silhouette is within normal limits. No acute fractures. RAD/Chest PA and Lateral IMPRESSION: No focal consolidations. Reading Location: [id number] CC: Dr. Yovani Erickson MD; Diomedes York DO ~ County Court Judge: Signed Recommendation Anesthesia Recommendation Anesthesia recommendation: OPTIMIZED for anesthesia
[2025-07-20] VITALS (8 sets, daily range): BP systolic 91–132; BP diastolic 64–92; PULSE 86–107; RESP 16–18; TEMP 36.1–36.6; O2SAT 92–98; BMI 36.1
--- OUTSIDE RECORDS SUMMARY | 2025-07-20 07:23 | XMS RPT_ITS | CCD ---
Author Organization [facility] CliniSyal Care Team Providers Care Ventilation Mechanic Name Role Phone Coco MoreiraTiffAnderosn Unavailable Unavailable Hailey Jarquin WHEELCHAIR VAN OPERATOR FIRST RESPONDER Unavailable Unavailable Abraham Aguilar EXHAUST EQUIPMENT OPERATOR Unavailable Unavailable CLEVELAND CAMARGO Attending Unava ilable KAMRON ERICKSON Primary Care Unavailable Dre GUZMÁN, Dr. Pina Primary Care Provider [phone] Dr. Rodriguez Beavers DO Attending Provider Dr. Rodriguez Beavers DO Emergency Provider [phone] Dr. Tramaine Tovar MD Emergency Provider [phone] Lori GUZMÁN, Dr. [place] Admit Provider Unavailable [...] Primary Care Unavailable Rodriguez Beavers Attending Unavailable Ren Boggs Admitting Unavailable Ren Boggs Consulting Unavailable Kamron Erickson Primary Care Unavailable Cleveland Guardado Attending Unavailable Allergies Allergy Classification Reported Allergen(s) Allergy Type Date of Onset Reaction(s) Facility (10 sources) sulfiSOXAZOLE Drug Allergy 9 [facility] (11 sources) Sulfonamides (Antibiotic); Translations: [Sulfa (Sulfonamide Antibiotics)] Allergy to substance 9 [facility] (1 source) sulfiSOXAZOLE; Translations: [GANTRISIN] Drug Allergy 3 [facility] (1 source) sulfiSOXAZOLE Drug Allergy 5 [facility] Repository Medications Current Medications Medication Drug Class(es) Dates Sig (Normalized) Sig (Original) acetaminophen 325 mg / oxyCODONE hydrochloride 5 mg oral tablet (2 sources) Opioid Agonist Start: 04-21-2025 take 1 tablet by mouth every six hours as needed for pain [id number] actuat albuterol 0.09 mg/actuat metered dose [...] )on 06-01-2025 BUN/CRE 3.0 RATIO Low - [facility] Comment on above: Result Comment: AMENDED REPORT 06/01/25 0644 BUN/CRE previously reported as: 2.8 L RATIO Performed By: #### L 300.4310, L503.6005, L300.3900, L501.2450, L500.2500, L500.3400, L100.0100 #### [facility] [address] [place], [address] CBC W/Diff, Automatedon 05-05 Absolute Lymph 2.83 X10 3/uL Normal 0.83-4.51 [facility] Comment on above: Performed By: #### L 300.4310, L503.6005, L300.3900, L501.2450, L500.2500, L500.3400, L100.0100 #### [facility] [address] [place], [address] Absolute Neut 8.7 X10 3/uL High 2.0-7.7 [facility] Comment on above: Performed By: #### L 300.4310, L503.6005, L300.3900, L501.2450, L500.2500, L500.3400, L100.0100 #### [facility] [address] [place], [address] Basophils/100 WBC (Bld) 0.3 % Normal 0-1 [facility] Comment on above: Performed By: #### L 300.4310, L503.6005, L300.3900, L501.2450, L500.2500, L500.3400, L100.0100 #### [facility] [address] [place], [address] Eosinophils/100 WBC (Bld) 1.0 % Normal 0-5 [facility] Comment on above: Performed By: #### L 300.4310, L503.6005, L300.3900, L501.2450, L500.2500, L500.3400, L100.0100 #### [facility] [address] [place], [address] Erythrocyte distribution width (RBC) [Ratio] 13.1 % Normal 11.6-14.6 [facility] Comment on above: Performed By: #### L 300.4310, L503.6005, L300.3900, L501.2450, L500.2500, L500.3400, L100.0100 #### [facility] [address] [place], [address] Hematocrit (Bld) [Volume fraction] 41.2 % Normal 40-54 [facility] Comment on above: Performed By: #### L 300.4310, L503.6005, L300.3900, L501.2450, L500.2500, L500.3400, L100.0100 #### [facility] [address] [place], [address] Hemoglobin (Bld) [Mass/Vol] 13.9 g/dL Normal 13.0-16. 5 [facility] Comment on above: Performed By: #### L 300.4310, L503.6005, L300.3900, L501.2450, L500.2500, L500.3400, L100.0100 #### [facility] [address] [place], [address] IG% 0.500 Normal 0.0-0.9 [facility] Comment on above: Result Comment: IG% - Immature Granulocytes (promyelocytes, myelocytes and metamyelocytes) > 1% indicates that a LEFT SHIFT is Present. Performed By: #### L 300.4310, L503.6005, L300.3900, L501.2450, L500.2500, L500.3400, L100.0100 #### [facility] [address] [place], [address] Lymphocytes/100 WBC (Bld) 22.0 % Normal 19-41 [facility] Comment on above: Performed By: #### L 300.4310, L503.6005, L300.3900, L501.2450, L500.2500, L500.3400, L100.0100 #### [facility] [address] [place], [address] MCH (RBC) [Entitic mass] 31.2 pg Normal 27.0-32.0 [facility] Comment on above: Performed By: #### L 300.4310, L503.6005, L300.3900, L501.2450, L500.2500, L500.3400, L100.0100 #### [facility] [address] [place], [address] MCHC (RBC) [Mass/Vol] 33.7 g/dL Normal 32-36 [facility] Comment on above: Performed By: #### L 300.4310, L503.6005, L300.3900, L501.2450, L500.2500, L500.3400, L100.0100 #### [facility] [address] [place], [address] MCV (RBC) [Entitic vol] 92.6 fL Normal 80-94 [facility] Comment on above: Performed By: #### L 300.4310, L503.6005, L300.3900, L501.2450, L500.2500, L500.3400, L100.0100 #### [facility] [address] [place], [address] Monocytes/100 WBC (Bld) 8.2 % Normal 0-10 [facility] Comment on above: Performed By: #### L 300.4310, L503.6005, L300.3900, L501.2450, L500.2500, L500.3400, L100.0100 #### [facility] [address] [place], [address] Neutrophils/100 WBC (Bld) 68.0 % Normal 47-70 [facility] Comment on above: Performed By: #### L 300.4310, L503.6005, L300.3900, L501.2450, L500.2500, L500.3400, L100.0100 #### [facility] [address] [place], [address] Nucleated RBC (Bld) [#/Vol] 0 10*3/uL Normal 0-5 [facility] Comment on above: Performed By: #### L 300.4310, L503.6005, L300.3900, L501.2450, L500.2500, L500.3400, L100.0100 #### [facility] [address] [place], [address] Platelet mean volume (Bld) [Entitic vol] 9.4 fL Normal 6.2-12.0 [facility] Comment on above: Performed By: #### L 300.4310, L503.6005, L300.3900, L501.2450, L500.2500, L500.3400, L100.0100 #### [facility] [address] [place], [address] Platelets (Bld) [#/Vol] 218 10*3/uL Normal 150-450 [facility] Comment on above: Performed By: #### L 300.4310, L503.6005, L300.3900, L501.2450, L500.2500, L500.3400, L100.0100 #### [facility] [address] [place], [address] RBC (Bld) [#/Vol] 4.45 10*6/uL Low 4.6-6.2 [facility] Comment on above: Performed By: #### L 300.4310, L503.6005, L300.3900, L501.2450, L500.2500, L500.3400, L100.0100 #### [facility] [address] [place], [address] RDW SD 44.1 fl High 35.1-43.9 [facility] Comment on above: Performed By: #### L 300.4310, L503.6005, L300.3900, L501.2450, L500.2500, L500.3400, L100.0100 #### [facility] [address] [place], [address] WBC (Bld) [#/Vol] 12.9 10*3/uL High 4.4-11.0 [facility] Comment on above: Performed By: #### L 300.4310, L503.6005, L300.3900, L501.2450, L500.2500, L500.3400, L100.0100 #### [facility] [address] [place], [address] Discharge Instructionon 05-05 Discharge Instruction [facility] Medical Records Department [address] [place] [address] Instructions for Home/Discharge Instructions 06/01/25 0923 MR#: [id number] Acct: [id number] Name: AMIEE DUCKWORTH Rep #: [id number] : 1990 34 From: Cleveland Guardado MD [...] MD; Dr. Ren Boggs MD Signed Normal [facility] Basic Metabolic Profile (BMP )on 05-31-2025 BUN/CRE 7.1 RATIO Low - [facility] Comment on above: Performed By: #### L 300.4310, L503.6005, L300.3900, L501.2450, L500.2500, L500.3400, L100.0100 #### [facility] [address] [place], [address] Calcium [Mass/Vol] 9.5 mg/dL Normal 7.6-11.0 [facility] Comment on above: Performed By: #### L 300.4310, L503.6005, L300.3900, L501.2450, L500.2500, L500.3400, L100.0100 #### [facility] [address] [place], [address] Chloride [Moles/Vol] 101 mmol/L Normal 98-108 [facility] Comment on above: Performed By: #### L 300.4310, L503.6005, L300.3900, L501.2450, L500.2500, L500.3400, L100.0100 #### [facility] [address] [place], [address] CO2 [Moles/Vol] 18.3 mmol/L Low 21.0-32.0 [facility] Comment on above: Performed By: #### L 300.4310, L503.6005, L300.3900, L501.2450, L500.2500, L500.3400, L100.0100 #### [facility] [address] [place], [address] Creatinine [Mass/Vol] 1.31 mg/dL High 0.70-1.20 [facility] Comment on above: Performed By: #### L 300.4310, L503.6005, L300.3900, L501.2450, L500.2500, L500.3400, L100.0100 #### [facility] [address] [place], [address] ECRCL 103.71 ml/min Normal 50-250 [facility] Comment on above: Performed By: #### L 300.4310, L503.6005, L300.3900, L501.2450, L500.2500, L500.3400, L100.0100 #### [facility] [address] [place], [address] GAP 23 High 5-15 [facility] Comment on above: Performed By: #### L 300.4310, L503.6005, L300.3900, L501.2450, L500.2500, L500.3400, L100.0100 #### [facility] [address] [place], [address] GFR/1.73 sq M.predicted among non-blacks MDRD (S/P/Bld) [Vol rate/Area] 73 mL/min/{1.73_m2} Normal >60 [facility] Comment on above: Result Comment: mL/m in/1.73m2 CKD-EPI Creatinine Equation (2020) Performed By: #### L 300.4310, L503.6005, L300.3900, L501.2450, L500.2500, L500.3400, L100.0100 #### [facility] [address] [place], [address] Glucose [Mass/Vol] 187 mg/dL High 70-99 [facility] Comment on above: Performed By: #### L 300.4310, L503.6005, L300.3900, L501.2450, L500.2500, L500.3400, L100.0100 #### [facility] [address] [place], [address] Potassium [Moles/Vol] 3.4 mmol/L Normal 3.3-5.1 [facility] Comment on above: Performed By: #### L 300.4310, L503.6005, L300.3900, L501.2450, L500.2500, L500.3400, L100.0100 #### [facility] [address] [place], [address] Sodium [Moles/Vol] 142 mmol/L Normal 133-145 [facility] Comment on above: Performed By: #### L 300.4310, L503.6005, L300.3900, L501.2450, L500.2500, L500.3400, L100.0100 #### [facility] [address] [place], [address] Urea nitrogen [Mass/Vol] 9 mg/dL Normal 4-19 [facility] Comment on above: Performed By: #### L 300.4310, L503.6005, L300.3900, L501.2450, L500.2500, L500.3400, L100.0100 #### [facility] [address] [place], [address] CBC W/Diff, Automatedon 10-2 -2024 Absolute Lymph 0.91 X10 3/uL Normal 0.83-4.51 [facility] Comment on above: Performed By: #### L 100.0100, L500.4050 #### [facility] [address] [place], [address] Absolute Neut 18.7 X10 3/uL High 2.0-7.7 [facility] Comment on above: Performed By: #### L 100.0100, L500.4050 #### [facility] [address] [place], [address] Basophils/100 WBC (Bld) 0.2 % Normal 0-1 [facility] Comment on above: Performed By: #### L 100.0100, L500.4050 #### [facility] [address] [place], [address] Eosinophils/100 WBC (Bld) 0.0 % Normal 0-5 [facility] Comment on above: Performed By: #### L 100.0100, L500.4050 #### [facility] [address] [place], [address] Erythrocyte distribution width (RBC) [Ratio] 13.0 % Normal 11.6-14.6 [facility] Comment on above: Performed By: #### L 100.0100, L500.4050 #### [facility] [address] [place], [address] Hematocrit (Bld) [Volume fraction] 47.8 % Normal 40-54 [facility] Comment on above: Performed By: #### L 100.0100, L500.4050 #### [facility] [address] [place], [address] Hemoglobin (Bld) [Mass/Vol] 16.3 g/dL Normal 13.0-16. 5 [facility] Comment on above: Performed By: #### L 100.0100, L500.4050 #### [facility] [address] [place], [address] IG% 0.400 Normal 0.0-0.9 [facility] Comment on above: Result Comment: IG% - Immature Granulocytes (promyelocytes, myelocytes and metamyelocytes) > 1% indicates that a LEFT SHIFT is Present. Performed By: #### L 100.0100, L500.4050 #### [facility] [address] [place], [address] Lymphocytes/100 WBC (Bld) 4.4 % Low 19-41 [facility] Comment on above: Performed By: #### L 100.0100, L500.4050 #### [facility] [address] [place], [address] MCH (RBC) [Entitic mass] 31.8 pg Normal 27.0-32.0 [facility] Comment on above: Performed By: #### L 100.0100, L500.4050 #### [facility] [address] [place], [address] MCHC (RBC) [Mass/Vol] 34.1 g/dL Normal 32-36 [facility] Comment on above: Performed By: #### L 100.0100, L500.4050 #### [facility] [address] [place], [address] MCV (RBC) [Entitic vol] 93.2 fL Normal 80-94 [facility] Comment on above: Performed By: #### L 100.0100, L500.4050 #### [facility] [address] [place], [address] Monocytes/100 WBC (Bld) 5.6 % Normal 0-10 [facility] Comment on above: Performed By: #### L 100.0100, L500.4050 #### [facility] [address] [place], [address] Neutrophils/100 WBC (Bld) 89.4 % High 47-70 [facility] Comment on above: Performed By: #### L 100.0100, L500.4050 #### [facility] [address] [place], [address] Nucleated RBC (Bld) [#/Vol] 0 10*3/uL Normal 0-5 [facility] Comment on above: Performed By: #### L 100.0100, L500.4050 #### [facility] [address] [place], [address] Platelet mean volume (Bld) [Entitic vol] 9.9 fL Normal 6.2-12.0 [facility] Comment on above: Performed By: #### L 100.0100, L500.4050 #### [facility] [address] [place], [address] Platelets (Bld) [#/Vol] 263 10*3/uL Normal 150-450 [facility] Comment on above: Performed By: #### L 100.0100, L500.4050 #### [facility] [address] [place], [address] RBC (Bld) [#/Vol] 5.13 10*6/uL Normal 4.6-6.2 [facility] Comment on above: Performed By: #### L 100.0100, L500.4050 #### [facility] [address] [place], [address] RDW SD 44.7 fl High 35.1-43.9 [facility] Comment on above: Performed By: #### L 100.0100, L500.4050 #### [facility] [address] [place], [address] WBC (Bld) [#/Vol] 20.9 10*3/uL High 4.4-11.0 [facility] Comment on above: Performed By: #### L 100.0100, L500.4050 #### [facility] [address] [place], [address] Absolute Lymph 1.65 X10 3/uL Normal 0.83-4.51 [facility] Comment on above: Performed By: #### L 300.4310, L503.6005, L300.3900, L501.2450, L500.2500, L500.3400, L100.0100 #### [facility] [address] [place], [address] Absolute Neut 17.0 X10 3/uL High 2.0-7.7 [facility] Comment on above: Performed By: #### L 300.4310, L503.6005, L300.3900, L501.2450, L500.2500, L500.3400, L100.0100 #### [facility] [address] [place], [address] Basophils/100 WBC (Bld) 0.2 % Normal 0-1 [facility] Comment on above: Performed By: #### L 300.4310, L503.6005, L300.3900, L501.2450, L500.2500, L500.3400, L100.0100 #### [facility] [address] [place], [address] Eosinophils/100 WBC (Bld) 0.0 % Normal 0-5 [facility] Comment on above: Performed By: #### L 300.4310, L503.6005, L300.3900, L501.2450, L500.2500, L500.3400, L100.0100 #### [facility] [address] [place], [address] Erythrocyte distribution width (RBC) [Ratio] 12.8 % Normal 11.6-14.6 [facility] Comment on above: Performed By: #### L 300.4310, L503.6005, L300.3900, L501.2450, L500.2500, L500.3400, L100.0100 #### [facility] [address] [place], [address] Hematocrit (Bld) [Volume fraction] 49.4 % Normal 40-54 [facility] Comment on above: Performed By: #### L 300.4310, L503.6005, L300.3900, L501.2450, L500.2500, L500.3400, L100.0100 #### [facility] [address] [facility] [place], [address] Hemoglobin (Bld) [Mass/Vol] 17.0 g/dL High 13.0-16. 5 [facility] Comment on above: Performed By: #### L 300.4310, L503.6005, L300.3900, L501.2450, L500.2500, L500.3400, L100.0100 #### [facility] [address] [facility] [place], [address] IG% 0.500 Normal 0.0-0.9 [facility] Comment on above: Result Comment: IG% - Immature Granulocytes (promyelocytes, myelocytes and metamyelocytes) > 1% indicates that a LEFT SHIFT is Present. Performed By: #### L 300.4310, L503.6005, L300.3900, L501.2450, L500.2500, L500.3400, L100.0100 #### [facility] [address] [place], [address] Lymphocytes/100 WBC (Bld) 8.3 % Low 19-41 [facility] Comment on above: Performed By: #### L 300.4310, L503.6005, L300.3900, L501.2450, L500.2500, L500.3400, L100.0100 #### [facility] [address] [place], [address] MCH (RBC) [Entitic mass] 31.5 pg Normal 27.0-32.0 [facility] Comment on above: Performed By: #### L 300.4310, L503.6005, L300.3900, L501.2450, L500.2500, L500.3400, L100.0100 #### [facility] [address] [place], [address] MCHC (RBC) [Mass/Vol] 34.4 g/dL Normal 32-36 [facility] Comment on above: Performed By: #### L 300.4310, L503.6005, L300.3900, L501.2450, L500.2500, L500.3400, L100.0100 #### [facility] [address] [place], [address] MCV (RBC) [Entitic vol] 91.7 fL Normal 80-94 [facility] Comment on above: Performed By: #### L 300.4310, L503.6005, L300.3900, L501.2450, L500.2500, L500.3400, L100.0100 #### [facility] [address] [place], [address] Monocytes/100 WBC (Bld) 5.6 % Normal 0-10 [facility] Comment on above: Performed By: #### L 300.4310, L503.6005, L300.3900, L501.2450, L500.2500, L500.3400, L100.0100 #### [facility] [address] [place], [address] Neutrophils/100 WBC (Bld) 85.4 % High 47-70 [facility] Comment on above: Performed By: #### L 300.4310, L503.6005, L300.3900, L501.2450, L500.2500, L500.3400, L100.0100 #### [facility] [address] [place], [address] Nucleated RBC (Bld) [#/Vol] 0 10*3/uL Normal 0-5 [facility] Comment on above: Performed By: #### L 300.4310, L503.6005, L300.3900, L501.2450, L500.2500, L500.3400, L100.0100 #### [facility] [address] [place], [address] Platelet mean volume (Bld) [Entitic vol] 10.4 fL Normal 6.2-12.0 [facility] Comment on above: Performed By: #### L 300.4310, L503.6005, L300.3900, L501.2450, L500.2500, L500.3400, L100.0100 #### [facility] [address] [place], [address] Platelets (Bld) [#/Vol] 360 10*3/uL Normal 150-450 [facility] Comment on above: Performed By: #### L 300.4310, L503.6005, L300.3900, L501.2450, L500.2500, L500.3400, L100.0100 #### [facility] [address] [place], [address] RBC (Bld) [#/Vol] 5.39 10*6/uL Normal 4.6-6.2 [facility] Comment on above: Performed By: #### L 300.4310, L503.6005, L300.3900, L501.2450, L500.2500, L500.3400, L100.0100 #### [facility] [address] [place], [address] RDW SD 43.2 fl Normal 35.1-43.9 [facility] Comment on above: Performed By: #### L 300.4310, L503.6005, L300.3900, L501.2450, L500.2500, L500.3400, L100.0100 #### [facility] [address] [place], [address] WBC (Bld) [#/Vol] 19.9 10*3/uL High 4.4-11.0 [facility] Comment on above: Performed By: #### L 300.4310, L503.6005, L300.3900, L501.2450, L500.2500, L500.3400, L100.0100 #### [facility] [address] [place], [address] Chest PA and Lateralon 05-31 Chest PA and Lateral [facility] [address] [place] [address] Chest PA and Lateral MR#: [id number] Acct: [id number] Name: AIMEE DUCKWORTH Rep #: [id number] : 1990 M 34 From: [place] Carnes PCP: Dr. Kamron Erickson MD Status: [facility] ER Study: Chest PA and Lateral Date of Exam: 05/31/25 Exam# [id number] Ordering Dr: Diomedes York DO PROCEDURE: CHEST PA AND LATERAL 05/30/2025 REASON FOR EXAM: ABD/CHEST PAIN TECHNIQUE: Procedure Code: RADCXR Modality: DX Procedure: CHEST PA AND LATERAL FINDINGS: No focal consolidation. No pleural effusion or pneumothorax. Cardiac silhouette is within normal limits. No acute fractures. RAD/Chest PA and Lateral IMPRESSION: No focal consolidations. Reading Location: [id number] CC: Dr. Kamron Erickson MD; Diomedes York DO Public Relations Sales Marketing: Signed Normal [facility] Comprehensive Metabolic Prof ilon 05-31-2025 Albumin [Mass/Vol] 4.5 g/dL Normal 3.5-5.0 [facility] Comment on above: Performed By: #### L 100.0100, L500.4050 #### [facility] [address] [place], [address] Albumin/Globulin [Mass ratio] 1.8 {ratio} Normal 0.9-2.4 [facility] Comment on above: Performed By: #### L 100.0100, L500.4050 #### [facility] [address] [place], [address] ALK PHOS 80 U/L Normal 40-129 [facility] Comment on above: Performed By: #### L 100.0100, L500.4050 #### [facility] [address] [place], [address] ALT [Catalytic activity/Vol] 12 U/L Normal <=46 [facility] Comment on above: Performed By: #### L 100.0100, L500.4050 #### [facility] [address] [place], [address] AST [Catalytic activity/Vol] 17 U/L Normal <=37 [facility] Comment on above: Performed By: #### L 100.0100, L500.4050 #### [facility] [address] [place], [address] Bilirubin [Mass/Vol] 0.42 mg/dL Normal 0.00-1.30 [facility] Comment on above: Performed By: #### L 100.0100, L500.4050 #### [facility] [address] [place], [address] BUN/CRE 6.6 RATIO Low 10-20 [facility] Comment on above: Performed By: #### L 100.0100, L500.4050 #### [facility] [address] [place], [address] Calcium [Mass/Vol] 8.5 mg/dL Normal 7.6-11.0 [facility] Comment on above: Performed By: #### L 100.0100, L500.4050 #### [facility] [address] [place], [address] Chloride [Moles/Vol] 102 mmol/L Normal 98-108 [facility] Comment on above: Performed By: #### L 100.0100, L500.4050 #### [facility] [address] [place], [address] CO2 [Moles/Vol] 20.4 mmol/L Low 21.0-32.0 [facility] Comment on above: Performed By: #### L 100.0100, L500.4050 #### [facility] [address] [place], [address] Creatinine [Mass/Vol] 1.12 mg/dL Normal 0.70-1.20 [facility] Comment on above: Performed By: #### L 100.0100, L500.4050 #### [facility] [address] [place], [address] ECRCL 121.77 ml/min Normal 50-250 [facility] Comment on above: Performed By: #### L 100.0100, L500.4050 #### [facility] [address] [place], [address] GAP 18 High 5-15 [facility] Comment on above: Performed By: #### L 100.0100, L500.4050 #### [facility] [address] [place], [address] GFR/1.73 sq M.predicted among non-blacks MDRD (S/P/Bld) [Vol rate/Area] 88 mL/min/{1.73_m2} Normal >60 [facility] Comment on above: Result Comment: mL/m in/1.73m2 CKD-EPI Creatinine Equation (2020) Performed By: #### L 100.0100, L500.4050 #### [facility] [address] [place], [address] Globulin (S) [Mass/Vol] 2.6 g/dL Normal 2.2-4.2 [facility] Comment on above: Performed By: #### L 100.0100, L500.4050 #### [facility] [address] [place], [address] Glucose [Mass/Vol] 126 mg/dL High 70-99 [facility] Comment on above: Performed By: #### L 100.0100, L500.4050 #### [facility] [address] [place], [address] Potassium [Moles/Vol] 3.8 mmol/L Normal 3.3-5.1 [facility] Comment on above: Performed By: #### L 100.0100, L500.4050 #### [facility] [address] [place], [address] Sodium [Moles/Vol] 141 mmol/L Normal 133-145 [facility] Comment on above: Performed By: #### L 100.0100, L500.4050 #### [facility] [address] [place], [address] T PROT 7.1 g/dL Normal 5.9-8.4 [facility] Comment on above: Performed By: #### L 100.0100, L500.4050 #### [facility] [address] [place], [address] Urea nitrogen [Mass/Vol] 7 mg/dL Normal 4-19 [facility] Comment on above: Performed By: #### L 100.0100, L500.4050 #### [facility] [address] [place], [address] ENTERIC PATHOGEN PANEL STOOL on 05-31-2025 EP [...] VIBRIO Not Detected Yersinia Not Detected Normal [facility] Comment on above: Performed By: #### L 300.4310, L503.6005, L300.3900, L501.2450, L500.2500, L500.3400, L100.0100 #### [facility] [address] [facility] [place], [address] Emergency Department Summary on 05-31-2025 Emergency Department Summary [facility] Medical Records Department [address] [place] [address] Emergency Department Summary 05/31/25 MR#: [id number] Acct: [id number] Name: AIMEE DUCKWORTH Rep #: [id number] : 1990 34 From: Diomedes York DO PCP: Dr. Kamron Erickson MD Status:ADM VELVET Location: [address] History of Present Illness Chief Complaint: [...] return/worsening of symptoms he presents for evaluation [facility] Medical History Spinal stenosis Schizophrenia Depression [...] supple Nec (more content not included)... Normal [facility] Lactic Acidon 05-31-2025 Lactate [Moles/Vol] 1.7 mmol/L Normal 0.0-2.0 [facility] Comment on above: Performed By: #### L 503.6005 #### [facility] [address] [place], [place], [address] Lactate [Moles/Vol] 4.0 mmol/L Invalid Interpretation Code 0.0-2.0 [facility] Comment on above: Order Comment: Y Result Comment: Crit ical Result(s) Called at: 0146 by:??RAMYA HAVEN TO KIRILL MADDEN Results read back by same. Performed By: #### L 300.4310, L503.6005, L300.3900, L501.2450, L500.2500, L500.3400, L100.0100 #### [facility] [address] [place], [place], [address] Lipaseon 05-31-2025 Lipase [Catalytic activity/Vol] 51 U/L Normal 13-75 [facility] Comment on above: Result Comment: Heavenly wolff note: LIPASE revised reference range effective 22. New Lipase methodology. Expected to produce lower values than the previous assay method. NEW Reference Range: 13 - 75 U/L Performed By: #### L 300.4310, L503.6005, L300.3900, L501.2450, L500.2500, L500.3400, L100.0100 #### [facility] [address] [place], [address] Liver Profileon 05-31-2025 Albumin [Mass/Vol] 4.7 g/dL Normal 3.5-5.0 [facility] Comment on above: Performed By: #### L 300.4310, L503.6005, L300.3900, L501.2450, L500.2500, L500.3400, L100.0100 #### [facility] [address] [place], [address] ALK PHOS 87 U/L Normal 40-129 [facility] Comment on above: Performed By: #### L 300.4310, L503.6005, L300.3900, L501.2450, L500.2500, L500.3400, L100.0100 #### [facility] [address] [place], [address] ALT [Catalytic activity/Vol] 12 U/L Normal <=46 [facility] Comment on above: Performed By: #### L 300.4310, L503.6005, L300.3900, L501.2450, L500.2500, L500.3400, L100.0100 #### [facility] [address] [place], [address] AST [Catalytic activity/Vol] 18 U/L Normal <=37 [facility] Comment on above: Performed By: #### L 300.4310, L503.6005, L300.3900, L501.2450, L500.2500, L500.3400, L100.0100 #### [facility] [address] [place], [address] Bilirubin [Mass/Vol] 0.39 mg/dL Normal 0.00-1.30 [facility] Comment on above: Performed By: #### L 300.4310, L503.6005, L300.3900, L501.2450, L500.2500, L500.3400, L100.0100 #### [facility] [address] [place], [address] Bilirubin.direct [Mass/Vol] 0.18 mg/dL Normal 0.00-0.3 0 [facility] Comment on above: Performed By: #### L 300.4310, L503.6005, L300.3900, L501.2450, L500.2500, L500.3400, L100.0100 #### [facility] [address] [place], [address] Globulin (S) [Mass/Vol] 2.6 g/dL Normal 2.2-4.2 [facility] Comment on above: Performed By: #### L 300.4310, L503.6005, L300.3900, L501.2450, L500.2500, L500.3400, L100.0100 #### [facility] [address] [place], [address] T PROT 7.4 g/dL Normal 5.9-8.4 [facility] Comment on above: Performed By: #### L 300.4310, L503.6005, L300.3900, L501.2450, L500.2500, L500.3400, L100.0100 #### [facility] [address] [place], [address] Partial Thromboplast Timeon 05-31-2025 aPTT Coag (Bld) [Time] 22.7 s Low 24.1-36.2 [facility] Comment on above: Performed By: #### L 300.4310, L503.6005, L300.3900, L501.2450, L500.2500, L500.3400, L100.0100 #### [facility] [address] [place], [address] Prothrombin Time w/INRon INR Coag (PPP) [Relative time] 1.0 {INR} Normal [facility] Comment on above: Performed By: #### L 300.4310, L503.6005, L300.3900, L501.2450, L500.2500, L500.3400, L100.0100 #### [facility] [address] [place], [address] PT Coag (PPP) [Time] 13.2 s Normal 11.7-14.9 [facility] Comment on above: Performed By: #### L 300.4310, L503.6005, L300.3900, L501.2450, L500.2500, L500.3400, L100.0100 #### [facility] [address] [place], [address] Abdomen/Pelvis W IV Cont ONL Yon 05-30-2025 Abdomen/Pelvis W IV Cont ONLY [facility] Imaging Services [address] [place] [address] Abdomen/Pelvis W IV Cont ONLY MR#: [id number] Acct: [id number] Name: AIMEE DUCKWORTH Rep #: [id number] : 1990 M 34 From: Saqib Shipley MD PCP: Dr. Kamron Erickson MD Status: REG ER Study: Abdomen/Pelvis W IV Cont ONLY Date of Exam: Exam# [id number] Ordering Dr: Berhane Adame MD PROCEDURE: ABDOMEN/PELVIS [...] represent diarrheal illness. Hepatic steatosis. Reading Location: [facility] CC: Dr. Berhane Adame MD; Dr. Kamron Erickson MD Public Relations Sales Marketing: Signed Normal [facility] CBC W/Diff, Automatedon 10-2 PLT EST ADEQUATE Normal ADEQ [facility] Comment on above: Performed By: #### L 300.4310, L503.6005, L300.3900, L501.2450, L500.2500, L500.3400, L100.0100 #### [facility] [address] [place], [place], [address] SMEAR COMMENT SCANNED Normal [facility] Comment on above: Performed By: #### L 300.4310, L503.6005, L300.3900, L501.2450, L500.2500, L500.3400, L100.0100 #### [facility] [address] [place], [address] Comprehensive Metabolic Prof ilon 05-30-2025 Albumin [Mass/Vol] 5.0 g/dL Normal 3.5-5.0 [facility] Comment on above: Performed By: #### L 300.4310, L503.6005, L300.3900, L501.2450, L500.2500, L500.3400, L100.0100 #### [facility] [address] [place], [address] Albumin/Globulin [Mass ratio] 1.8 {ratio} Normal 0.9-2.4 [facility] Comment on above: Performed By: #### L 300.4310, L503.6005, L300.3900, L501.2450, L500.2500, L500.3400, L100.0100 #### [facility] [address] [place], [address] ALK PHOS 94 U/L Normal 40-129 [facility] Comment on above: Performed By: #### L 300.4310, L503.6005, L300.3900, L501.2450, L500.2500, L500.3400, L100.0100 #### [facility] [address] [place], [address] ALT [Catalytic activity/Vol] 15 U/L Normal <=46 [facility] Comment on above: Performed By: #### L 300.4310, L503.6005, L300.3900, L501.2450, L500.2500, L500.3400, L100.0100 #### [facility] [address] [place], [address] AST [Catalytic activity/Vol] 21 U/L Normal <=37 [facility] Comment on above: Performed By: #### L 300.4310, L503.6005, L300.3900, L501.2450, L500.2500, L500.3400, L100.0100 #### [facility] [address] [place], [address] Bilirubin [Mass/Vol] 0.57 mg/dL Normal 0.00-1.30 [facility] Comment on above: Performed By: #### L 300.4310, L503.6005, L300.3900, L501.2450, L500.2500, L500.3400, L100.0100 #### [facility] [address] [place], [address] BUN/CRE 6.8 RATIO Low 10-20 [facility] Comment on above: Performed By: #### L 300.4310, L503.6005, L300.3900, L501.2450, L500.2500, L500.3400, L100.0100 #### [facility] [address] [place], [address] Calcium [Mass/Vol] 9.9 mg/dL Normal 7.6-11.0 [facility] Comment on above: Performed By: #### L 300.4310, L503.6005, L300.3900, L501.2450, L500.2500, L500.3400, L100.0100 #### [facility] [address] [place], [address] Chloride [Moles/Vol] 99 mmol/L Normal 98-108 [facility] Comment on above: Performed By: #### L 300.4310, L503.6005, L300.3900, L501.2450, L500.2500, L500.3400, L100.0100 #### [facility] [address] [place], [address] CO2 [Moles/Vol] 24.3 mmol/L Normal 21.0-32.0 [facility] Comment on above: Performed By: #### L 300.4310, L503.6005, L300.3900, L501.2450, L500.2500, L500.3400, L100.0100 #### [facility] [address] [place], [place], [address] Creatinine [Mass/Vol] 1.31 mg/dL High 0.70-1.20 [facility] Comment on above: Performed By: #### L 300.4310, L503.6005, L300.3900, L501.2450, L500.2500, L500.3400, L100.0100 #### [facility] [address] [place], [place], [id number] (799) ECRCL 105.14 ml/min Normal 50-250 [facility] Comment on above: Performed By: #### L 300.4310, L503.6005, L300.3900, L501.2450, L500.2500, L500.3400, L100.0100 #### [facility] [address] [place], [address] GAP 18 High 5-15 [facility] Comment on above: Performed By: #### L 300.4310, L503.6005, L300.3900, L501.2450, L500.2500, L500.3400, L100.0100 #### [facility] [address] [place], [place], [address] GFR/1.73 sq M.predicted among non-blacks MDRD (S/P/Bld) [Vol rate/Area] 73 mL/min/{1.73_m2} Normal >60 [facility] Comment on above: Result Comment: mL/m in/1.73m2 CKD-EPI Creatinine Equation (2020) Performed By: #### L 300.4310, L503.6005, L300.3900, L501.2450, L500.2500, L500.3400, L100.0100 #### [facility] [address] [place], [address] Globulin (S) [Mass/Vol] 2.9 g/dL Normal 2.2-4.2 [facility] Comment on above: Performed By: #### L 300.4310, L503.6005, L300.3900, L501.2450, L500.2500, L500.3400, L100.0100 #### [facility] [address] [place], [address] Glucose [Mass/Vol] 120 mg/dL High 70-99 [facility] Comment on above: Performed By: #### L 300.4310, L503.6005, L300.3900, L501.2450, L500.2500, L500.3400, L100.0100 #### [facility] [address] [place], [address] Potassium [Moles/Vol] 3.4 mmol/L Normal 3.3-5.1 [facility] Comment on above: Performed By: #### L 300.4310, L503.6005, L300.3900, L501.2450, L500.2500, L500.3400, L100.0100 #### [facility] [address] [place], [address] Sodium [Moles/Vol] 141 mmol/L Normal 133-145 [facility] Comment on above: Performed By: #### L 300.4310, L503.6005, L300.3900, L501.2450, L500.2500, L500.3400, L100.0100 #### [facility] [address] [place], [address] T PROT 7.9 g/dL Normal 5.9-8.4 [facility] Comment on above: Performed By: #### L 300.4310, L503.6005, L300.3900, L501.2450, L500.2500, L500.3400, L100.0100 #### [facility] [address] [place], [address] Urea nitrogen [Mass/Vol] 9 mg/dL Normal 4-19 [facility] Comment on above: Performed By: #### L 300.4310, L503.6005, L300.3900, L501.2450, L500.2500, L500.3400, L100.0100 #### [facility] [address] [place], [address] Emergency Department Summary on 05-30-2025 Emergency Department Summary [facility] Medical Records Department [address] [place] [address] Emergency Department Summary 05/30/25 MR#: [id number] Acct: [id number] Name: AIMEE DUCKWORTH Rep #: [id number] : 1990 34 From: Berhane Adame MD [...] history that he was 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 He states this was found on endoscopy 3 to 4 years ago. He is currently not undergoing any treatment. [facility] Medical History Spinal stenosis Schizophrenia Depression [...] already ordere (more content not included)... Normal [facility] Lipaseon 05-30-2025 Lipase [Catalytic activity/Vol] 33 U/L Normal 13-75 [facility] Comment on above: Result Comment: Heavenly wolff note: LIPASE revised reference range effective 22. New Lipase methodology. Expected to produce lower values than the previous assay method. NEW Reference Range: 13 - 75 U/L Performed By: #### L 300.4310, L503.6005, L300.3900, L501.2450, L500.2500, L500.3400, L100.0100 #### [facility] [address] [place], [place], [id number] Urinalysis, Completeon 05-30 BACTERIA 1+ /hpf Normal None Seen [facility] Comment on above: Order Comment: COLLE CTOR TO SPECIFY Performed By: #### L 300.4310, L503.6005, L300.3900, L501.2450, L500.2500, L500.3400, L100.0100 #### [facility] [address] [place], [address] RBC 0-5 SEEN Normal 0-5 [facility] Comment on above: Order Comment: CIPRIANO CTOR TO SPECIFY Performed By: #### L 300.4310, L503.6005, L300.3900, L501.2450, L500.2500, L500.3400, L100.0100 #### [facility] [address] [place], [address] WBC 5-10 SEEN Normal 0-5 [facility] Comment on above: Order Comment: CIPRIANO CTOR TO SPECIFY Performed By: #### L 300.4310, L503.6005, L300.3900, L501.2450, L500.2500, L500.3400, L100.0100 #### [facility] [address] [place], [address] EPI,SQUAMOUS 0 SEEN Normal 0-5 [facility] Comment on above: Order Comment: CIPRIANO CTOR TO SPECIFY Performed By: #### L 300.4310, L503.6005, L300.3900, L501.2450, L500.2500, L500.3400, L100.0100 #### [facility] [address] [place], [address] Mucus Ql (Urine sed) 0 SEEN Normal [facility] Comment on above: Order Comment: COLLE CTOR TO SPECIFY Performed By: #### L 300.4310, L503.6005, L300.3900, L501.2450, L500.2500, L500.3400, L100.0100 #### [facility] [address] [place], [address] Absolute lymphocyte countOrd ered By: Rodriguez Beavers on 04-22-2025 Lymphocytes Auto (Unsp spec) [#/Vol] 2.83 10*3/uL 0.83-4.51 [facility] Absolute neutrophil countOrd ered By: Rodriguez Beavers on 04-22-2025 Neutrophils (Bld) [#/Vol] 10.4 10*3/uL High 2.0-7.7 [facility] Anion gap in Serum or Plasma Ordered By: Rodriguez Beavers on 04-22-2025 Anion gap [Moles/Vol] 17 mmol/L High 5-15 [facility] Automated lymphocyte count a s percentage of total leukocytesOrdered By: Rodriguez Beavers on 04-22-2025 Lymphocytes/100 WBC Auto (Unsp spec) 19.5 % - [facility] BUN/creatinine ratioOrdered By: Rodriguez Beavers on 04-22-2025 Urea nitrogen/Creatinine [Mass ratio] 13.1 mg/mg 10- [facility] Basophil percentageOrdered B y: Rodriguez Beavers on 04-22-2025 Basophils/100 WBC (Bld) 0.4 % 0-1 [facility] Bilirubin Test strip Ql (U)O rdered By: Rodriguez Beavers on 04-22-2025 Bilirubin Ql (U) 1 mg/dL High Negative [facility] Comment on above: COLOR OF URINE MAY A FFECT DIPSTICK RESULTS. Bilirubin, totalOrdered By: Rodriguez Beavers on 04-22-2025 Bilirubin [Mass/Vol] 0.42 mg/dL 0.00-1.30 [facility] CBC W/Diff, Automatedon 04-04 Absolute Lymph 2.83 X10 3/uL Normal 0.83-4.51 [facility] Comment on above: Performed By: #### L 300.4310, L503.6005, L300.3900, L501.2450, L500.2500, L500.3400, L100.0100 #### [facility] [address] [place], [place], [address] Absolute Neut 10.4 X10 3/uL High 2.0-7.7 [facility] Comment on above: Performed By: #### L 300.4310, L503.6005, L300.3900, L501.2450, L500.2500, L500.3400, L100.0100 #### [facility] [address] [place], [address] Basophils/100 WBC (Bld) 0.4 % Normal 0-1 [facility] Comment on above: Performed By: #### L 300.4310, L503.6005, L300.3900, L501.2450, L500.2500, L500.3400, L100.0100 #### [facility] [address] [place], [address] Eosinophils/100 WBC (Bld) 0.3 % Normal 0-5 [facility] Comment on above: Performed By: #### L 300.4310, L503.6005, L300.3900, L501.2450, L500.2500, L500.3400, L100.0100 #### [facility] [address] [place], [address] Erythrocyte distribution width (RBC) [Ratio] 12.5 % Normal 11.6-14.6 [facility] Comment on above: Performed By: #### L 300.4310, L503.6005, L300.3900, L501.2450, L500.2500, L500.3400, L100.0100 #### [facility] [address] [place], [address] Hematocrit (Bld) [Volume fraction] 46.0 % Normal 40-54 [facility] Comment on above: Performed By: #### L 300.4310, L503.6005, L300.3900, L501.2450, L500.2500, L500.3400, L100.0100 #### [facility] [address] [place], [address] Hemoglobin (Bld) [Mass/Vol] 15.5 g/dL Normal 13.0-16. 5 [facility] Comment on above: Performed By: #### L 300.4310, L503.6005, L300.3900, L501.2450, L500.2500, L500.3400, L100.0100 #### [facility] [address] [place], [address] IG% 0.500 Normal 0.0-0.9 [facility] Comment on above: Result Comment: IG% - Immature Granulocytes (promyelocytes, myelocytes and metamyelocytes) > 1% indicates that a LEFT SHIFT is Present. Performed By: #### L 300.4310, L503.6005, L300.3900, L501.2450, L500.2500, L500.3400, L100.0100 #### [facility] [address] [place], [address] Lymphocytes/100 WBC (Bld) 19.5 % Normal 19-41 [facility] Comment on above: Performed By: #### L 300.4310, L503.6005, L300.3900, L501.2450, L500.2500, L500.3400, L100.0100 #### [facility] [address] [place], [address] MCH (RBC) [Entitic mass] 31.6 pg Normal 27.0-32.0 [facility] Comment on above: Performed By: #### L 300.4310, L503.6005, L300.3900, L501.2450, L500.2500, L500.3400, L100.0100 #### [facility] [address] [facility] [place], [address] MCHC (RBC) [Mass/Vol] 33.7 g/dL Normal 32-36 [facility] Comment on above: Performed By: #### L 300.4310, L503.6005, L300.3900, L501.2450, L500.2500, L500.3400, L100.0100 #### [facility] [address] [place], [address] MCV (RBC) [Entitic vol] 93.7 fL Normal 80-94 [facility] Comment on above: Performed By: #### L 300.4310, L503.6005, L300.3900, L501.2450, L500.2500, L500.3400, L100.0100 #### [facility] [address] [place], [address] Monocytes/100 WBC (Bld) 7.8 % Normal 0-10 [facility] Comment on above: Performed By: #### L 300.4310, L503.6005, L300.3900, L501.2450, L500.2500, L500.3400, L100.0100 #### [facility] [address] [place], [address] Neutrophils/100 WBC (Bld) 71.5 % High 47-70 [facility] Comment on above: Performed By: #### L 300.4310, L503.6005, L300.3900, L501.2450, L500.2500, L500.3400, L100.0100 #### [facility] [address] [place], [address] Nucleated RBC (Bld) [#/Vol] 0 10*3/uL Normal 0-5 [facility] Comment on above: Performed By: #### L 300.4310, L503.6005, L300.3900, L501.2450, L500.2500, L500.3400, L100.0100 #### [facility] [address] [place], [address] Platelet mean volume (Bld) [Entitic vol] 9.9 fL Normal 6.2-12.0 [facility] Comment on above: Performed By: #### L 300.4310, L503.6005, L300.3900, L501.2450, L500.2500, L500.3400, L100.0100 #### [facility] [address] [place], [address] Platelets (Bld) [#/Vol] 273 10*3/uL Normal 150-450 [facility] Comment on above: Performed By: #### L 300.4310, L503.6005, L300.3900, L501.2450, L500.2500, L500.3400, L100.0100 #### [facility] [address] [place], [address] RBC (Bld) [#/Vol] 4.91 10*6/uL Normal 4.6-6.2 [facility] Comment on above: Performed By: #### L 300.4310, L503.6005, L300.3900, L501.2450, L500.2500, L500.3400, L100.0100 #### [facility] [address] [place], [address] RDW SD 43.3 fl Normal 35.1-43.9 [facility] Comment on above: Performed By: #### L 300.4310, L503.6005, L300.3900, L501.2450, L500.2500, L500.3400, L100.0100 #### [facility] [address] [place], [address] WBC (Bld) [#/Vol] 14.6 10*3/uL High 4.4-11.0 [facility] Comment on above: Performed By: #### L 300.4310, L503.6005, L300.3900, L501.2450, L500.2500, L500.3400, L100.0100 #### [facility] [address] [place], [address] Carbon dioxide, total [Moles /volume] in Central venous bloodOrdered By: Rodriguez Nimesh on 04-22-2025 CO2 [Moles/Vol] 30.5 mmol/L 21.0-32.0 [facility] Chloride assayOrdered By: Fer ha Fullerrus on 04-22-2025 Chloride [Moles/Vol] 93 mmol/L Low 98-108 [facility] Comprehensive Metabolic Prof ilon 04-22-2025 Albumin [Mass/Vol] 4.2 g/dL Normal 3.5-5.0 [facility] Comment on above: Performed By: #### L 300.4310, L503.6005, L300.3900, L501.2450, L500.2500, L500.3400, L100.0100 #### [facility] [address] [place], [address] Albumin/Globulin [Mass ratio] 1.7 {ratio} Normal 0.9-2.4 [facility] Comment on above: Performed By: #### L 300.4310, L503.6005, L300.3900, L501.2450, L500.2500, L500.3400, L100.0100 #### [facility] [address] [place], [address] ALK PHOS 67 U/L Normal 40-129 [facility] Comment on above: Performed By: #### L 300.4310, L503.6005, L300.3900, L501.2450, L500.2500, L500.3400, L100.0100 #### [facility] [address] [place], [address] ALT [Catalytic activity/Vol] 10 U/L Normal <=46 [facility] Comment on above: Performed By: #### L 300.4310, L503.6005, L300.3900, L501.2450, L500.2500, L500.3400, L100.0100 #### [facility] [address] [place], [address] AST [Catalytic activity/Vol] 12 U/L Normal <=37 [facility] Comment on above: Performed By: #### L 300.4310, L503.6005, L300.3900, L501.2450, L500.2500, L500.3400, L100.0100 #### [facility] [address] [place], [address] Bilirubin [Mass/Vol] 0.42 mg/dL Normal 0.00-1.30 [facility] Comment on above: Performed By: #### L 300.4310, L503.6005, L300.3900, L501.2450, L500.2500, L500.3400, L100.0100 #### [facility] [address] [place], [address] BUN/CRE 13.1 RATIO Normal 10-20 [facility] Comment on above: Performed By: #### L 300.4310, L503.6005, L300.3900, L501.2450, L500.2500, L500.3400, L100.0100 #### [facility] [address] [place], [address] Calcium [Mass/Vol] 8.9 mg/dL Normal 7.6-11.0 [facility] Comment on above: Performed By: #### L 300.4310, L503.6005, L300.3900, L501.2450, L500.2500, L500.3400, L100.0100 #### [facility] [address] [place], [address] Chloride [Moles/Vol] 93 mmol/L Low 98-108 [facility] Comment on above: Performed By: #### L 300.4310, L503.6005, L300.3900, L501.2450, L500.2500, L500.3400, L100.0100 #### [facility] [address] [place], [address] CO2 [Moles/Vol] 30.5 mmol/L Normal 21.0-32.0 [facility] Comment on above: Performed By: #### L 300.4310, L503.6005, L300.3900, L501.2450, L500.2500, L500.3400, L100.0100 #### [facility] [address] [place], [address] Creatinine [Mass/Vol] 1.30 mg/dL High 0.70-1.20 [facility] Comment on above: Performed By: #### L 300.4310, L503.6005, L300.3900, L501.2450, L500.2500, L500.3400, L100.0100 #### [facility] [address] [place], [place], [id number] (967) ECRCL 106.18 ml/min Normal 50-250 [facility] Comment on above: Performed By: #### L 300.4310, L503.6005, L300.3900, L501.2450, L500.2500, L500.3400, L100.0100 #### [facility] [address] [place], [place], [id number] (888) GAP 17 High 5-15 [facility] Comment on above: Performed By: #### L 300.4310, L503.6005, L300.3900, L501.2450, L500.2500, L500.3400, L100.0100 #### [facility] [address] [place], [place], [id number] ([address] GFR/1.73 sq M.predicted among non-blacks MDRD (S/P/Bld) [Vol rate/Area] 74 mL/min/{1.73_m2} Normal >60 [facility] Comment on above: Result Comment: mL/m in/1.73m2 CKD-EPI Creatinine Equation (2020) Performed By: #### L 300.4310, L503.6005, L300.3900, L501.2450, L500.2500, L500.3400, L100.0100 #### [facility] [address] [place], [address] Globulin (S) [Mass/Vol] 2.4 g/dL Normal 2.2-4.2 [facility] Comment on above: Performed By: #### L 300.4310, L503.6005, L300.3900, L501.2450, L500.2500, L500.3400, L100.0100 #### [facility] [address] [place], [address] Glucose [Mass/Vol] 135 mg/dL High 70-99 [facility] Comment on above: Performed By: #### L 300.4310, L503.6005, L300.3900, L501.2450, L500.2500, L500.3400, L100.0100 #### [facility] [address] [place], [address] Potassium [Moles/Vol] 2.6 mmol/L Invalid Interpretation Code 3.3-5.1 [facility] Comment on above: Result Comment: Crit ical Result(s) Called at: 0902 04/22/2025 by: YASMINE SOLANO??Results read back by same. Performed By: #### L 300.4310, L503.6005, L300.3900, L501.2450, L500.2500, L500.3400, L100.0100 #### [facility] [address] [place], [address] Sodium [Moles/Vol] 140 mmol/L Normal 133-145 [facility] Comment on above: Performed By: #### L 300.4310, L503.6005, L300.3900, L501.2450, L500.2500, L500.3400, L100.0100 #### [facility] [address] [place], [address] T PROT 6.7 g/dL Normal 5.9-8.4 [facility] Comment on above: Performed By: #### L 300.4310, L503.6005, L300.3900, L501.2450, L500.2500, L500.3400, L100.0100 #### [facility] [address] [place], [address] Urea nitrogen [Mass/Vol] 17 mg/dL Normal 4-19 [facility] Comment on above: Performed By: #### L 300.4310, L503.6005, L300.3900, L501.2450, L500.2500, L500.3400, L100.0100 #### [facility] [address] [facility] [place], [address] Emergency Department Summary on 04-22-2025 Emergency Department Summary [facility] Medical Records Department [address] [place] [address] Emergency Department Summary 04/22/25 MR#: [id number] Acct: [id number] Name: AIMEE DUCKWORTH Rep #: [id number] : 1990 34 From: Rodriguez Beavers DO PCP: Dr. Kamron Erickson MD Status:DEP ER Location: ED HPI History of Present Illness Chief Complaint: Abd Pain [facility] Medical History Spinal stenosis Schizophrenia Depression Anxiety Smoker Schizophrenia Migraines Asthma Home Medications ???Medication ???Instructions ???Recorded ???Last Taken ???Type divalproex 500 mg tablet,delayed 1,000 mg PO BID 06/02/24 11/02/24 History release albuterol sulfate 90 mcg/actuation 1 - 2 puff inhalation Q4H PRN [facility] 11/02/24 Unknown History aerosol inhaler bupropion [...] Social det (more content not included)... Normal [facility] Eosinophil percentageOrdered By: Rodriguez Beavers on 04-22-2025 Eosinophils/100 WBC (Bld) 0.3 % 0-5 [facility] Erythrocyte distribution wid th ratioOrdered By: Rodriguez Beavers on 04-22-2025 Erythrocyte distribution width (RBC) [Ratio] 12.5 % 11.6-14.6 [facility] Erythrocyte distribution wid th standard deviationOrdered By: Rodriguez Beavers on 04-22-2025 Erythrocyte distribution width (RBC) [Ratio] 43.3 fl 35.1-43.9 [facility] Glomerular filtration rate ( GFR) estimation/1.73 sq m using serum, plasma, or whole bOrdered By: Rodriguez Beavers on 04-22-2025 GFR/1.73 sq M.predicted among non-blacks MDRD (S/P/Bld) [Vol rate/Area] 74 mL/min/{1.73_m2} >60 [facility] Comment on above: mL/min/1.73m2 CKD-EP I Creatinine Equation (2020) Hematocrit Auto (Bld) [Volum e fraction]Ordered By: Rodriguez Beavers on 04-22-2025 Hematocrit (Bld) [Volume fraction] 46.0 % 40-54 [facility] Hemoglobin measurementOrdere d By: Rodriguez Beavers on 04-22-2025 Hemoglobin (Bld) [Mass/Vol] 15.5 g/dL 13.0-16. 5 [facility] Immature granulocytes/100 WB C Auto (Bld)Ordered By: Rodriguez Beavers on 04-22-2025 Immature granulocytes/100 WBC (Bld) 0.500 % 0.0-0.9 [facility] Comment on above: IG% - Immature Granu locytes (promyelocytes, myelocytes and metamyelocytes) > 1% indicates that a LEFT SHIFT is Present. Ketones Test strip Ql (U)Ord ered By: Rodriguez Beavers on 04-22-2025 Ketones Ql (U) 150 mg/dl Negative [facility] Comment on above: CRITICAL VALUE *H Laboratory - Chemistry and C hemistry - challengeOrdered By: Rodriguez Beavers on 04-22-2025 AST [Catalytic activity/Vol] 12 U/L <38 [facility] Lipaseon 04-22-2025 Lipase [Catalytic activity/Vol] 37 U/L Normal 13-75 [facility] Comment on above: Result Comment: Heavenly wolff note: LIPASE revised reference range effective 22. New Lipase methodology. Expected to produce lower values than the previous assay method. NEW Reference Range: 13 - 75 U/L Performed By: #### L 300.4310, L503.6005, L300.3900, L501.2450, L500.2500, L500.3400, L100.0100 #### [facility] [place], [address] Lipase measurementOrdered By : Rodriguez Beavers on 04-22-2025 Lipase [Catalytic activity/Vol] 37 U/L 13-75 [facility] Comment on above: Please note:LIPASE r evised reference range effective 22. New Lipase methodology. Expected to produce lower values than the previous assay method. NEW Reference Range: 13 - 75 U/L MCV (mean corpuscular volume ) determinationOrdered By: Rodriguez Beavers on 04-22-2025 MCV (RBC) [Entitic vol] 93.7 fL 80-94 [facility] Mean corpuscular hemoglobin (MCH) determinationOrdered By: Rodriguez Beavers on 04-22-2025 MCH (RBC) [Entitic mass] 31.6 pg 27.0-32.0 [facility] Mean corpuscular hemoglobin concentration (MCHC) determinationOrdered By: Rodriguez Beavers on 04-22-2025 MCHC (RBC) [Mass/Vol] 33.7 g/dL 32-36 [facility] Mean platelet volume determi nationOrdered By: Rodriguez Beavers on 04-22-2025 Platelet mean volume (Bld) [Entitic vol] 9.9 fL 6.2-12.0 [facility] Microscopic analysis of urin e for red blood cells (RBC)Ordered By: Rodriguez Beavers on 04-22-2025 Microscopic analysis of urine for red blood cells (RBC) 0 SEEN /hpf 0-5 [facility] Monocyte percentageOrdered B y: Rodriguez Beavers on 04-22-2025 Monocytes/100 WBC (Bld) 7.8 % 0-10 [facility] Mucus LM Ql (Urine sed)Order ed By: Rodriguez Beavers on 04-22-2025 Mucus Ql (Urine sed) 1+ /hpf [facility] Neutrophil percentageOrdered By: Rodriguez Beavers on 04-22-2025 Neutrophils/100 WBC (Bld) 71.5 % High 47-70 [facility] Nitrite Test strip Ql (U)Ord ered By: Rodriguez Beavers on 04-22-2025 Nitrite Ql (U) Negative Negative [facility] Nucleated red blood cell per centageOrdered By: Rodriguez Beavers on 04-22-2025 Nucleated RBC/100 WBC (Bld) [Ratio] 0 % 0-5 [facility] Platelet countOrdered By: Fer Beavers on 04-22-2025 Platelets (Bld) [#/Vol] 273 10*3/uL 150-450 [facility] Potassium measurement (mass/ volume)Ordered By: Rodriguez Beavers on 04-22-2025 Potassium (Unsp spec) [Mass/Vol] 2.6 mmol/L Critically low 3.3-5.1 [facility] Comment on above: Critical Result(s) C alled at: 0902 04/22/2025 by: YASMINE SOLANO Results read back by same. Protein Test strip Ql (U)Ord ered By: Rodriguez Beavers on 04-22-2025 Protein Ql (U) 100 mg/dl High Negative [facility] RBC Auto (Bld) [#/Vol]Ordere d By: Rodriguez Beavers on 04-22-2025 RBC (Bld) [#/Vol] 4.91 10*6/uL 4.6-6.2 [facility] Serum creatinine measurement (mass/volume)Ordered By: Rodriguez Beavers on 04-22-2025 Creatinine [Mass/Vol] 1.30 mg/dL High 0.70-1.20 [facility] Serum globulin measurementOr dered By: Rodriguez Beavers on 04-22-2025 Globulin (S) [Mass/Vol] 2.4 g/dL 2.2-4.2 [facility] Serum glucose measurement (m ass/volume)Ordered By: Rodriguez Beavers on 04-22-2025 Glucose [Mass/Vol] 135 mg/dL High 70-99 [facility] Serum or plasma alanine comer otransferase (ALT) measurementOrdered By: Rodriguez Beavers on 04-22-2025 ALT [Catalytic activity/Vol] 10 U/L <47 [facility] Serum or plasma albumin mauro urement (mass/volume)Ordered By: Rodriguez Beavers on 04-22-2025 Albumin [Mass/Vol] 4.2 g/dL 3.5-5.0 [facility] Serum or plasma albumin/glob ulin mass ratioOrdered By: Rodriguez Beavers on 04-22-2025 Albumin/Globulin [Mass ratio] 1.7 {ratio} 0.9-2.4 [facility] Serum or plasma alkaline fatuma sphatase measurementOrdered By: Rodriguez Beavers on 04-22-2025 ALP [Catalytic activity/Vol] 67 U/L 40-129 [facility] Serum or plasma calcium mauro urement (mass/volume)Ordered By: Rodriguez Beavers on 04-22-2025 Calcium [Mass/Vol] 8.9 mg/dL 7.6-11.0 [facility] Serum or plasma urea nitroge n measurement (mass/volume)Ordered By: Rodriguez Beavers on 04-22-2025 Urea nitrogen [Mass/Vol] 17 mg/dL 4-19 [facility] Sodium levelOrdered By: Melony Beavers on 04-22-2025 Sodium [Moles/Vol] 140 mmol/L 133-145 [facility] Squamous epithelial cells de tection in urine sediment by light microscopyOrdered By: Rodriguez Beavers on 04-22-2025 Epithelial cells.squamous LM Ql (Urine sed) 0 SEEN /hpf 0-5 [facility] Total proteinOrdered By: Isac Beaevrs on 04-22-2025 Protein [Mass/Vol] 6.7 g/dL 5.9-8.4 [facility] Urinalysis, Completeon 04-22 Mucus Ql (Urine sed) 1+ /hpf Normal [facility] Comment on above: Order Comment: CRITI RICARDA VALUE CALLED TO YASMINE SOLANO04/22/25 0920 Mary Carmen Jay.RESULTS READ BACK BY SAME.EMERGENCY VEHICLE OPERATIONS INSTRUCTOR TO SPECIFY Performed By: #### L 300.4310, L503.6005, L300.3900, L501.2450, L500.2500, L500.3400, L100.0100 #### [facility] [address] [place], [place], [id number] WBC 5-10 SEEN Normal 0-5 [facility] Comment on above: Order Comment: CRITI RICARDA VALUE CALLED TO YASMINE SOLANO04/22/2520 Mary Carmen Jay.RESULTS READ BACK BY SAME.EMERGENCY VEHICLE OPERATIONS INSTRUCTOR TO SPECIFY Performed By: #### L 300.4310, L503.6005, L300.3900, L501.2450, L500.2500, L500.3400, L100.0100 #### [facility] [address] [place], [address] BACTERIA 0 SEEN Normal None Seen [facility] Comment on above: Order Comment: CRITI RICARDA VALUE CALLED TO YASMINE SOLANO04/22/25 Mary Carmen Jay.RESULTS READ BACK BY SAME.EMERGENCY VEHICLE OPERATIONS INSTRUCTOR TO SPECIFY Performed By: #### L 300.4310, L503.6005, L300.3900, L501.2450, L500.2500, L500.3400, L100.0100 #### [facility] [address] [place], [address] EPI,SQUAMOUS 0 SEEN Normal 0-5 [facility] Comment on above: Order Comment: CRITI RICARDA VALUE CALLED TO YASMINE RUST04/22/25919 Mary Carmen Jay.RESULTS READ BACK BY SAME.EMERGENCY VEHICLE OPERATIONS INSTRUCTOR TO SPECIFY Performed By: #### L 300.4310, L503.6005, L300.3900, L501.2450, L500.2500, L500.3400, L100.0100 #### [facility] [address] [place], [place], [address] (720) RBC 0 SEEN Normal 0-5 [facility] Comment on above: Order Comment: CRITI RICARDA VALUE CALLED TO YASMINE RUST04/22/2520 Mary Carmen Jay.RESULTS READ BACK BY SAME.EMERGENCY VEHICLE OPERATIONS INSTRUCTOR TO SPECIFY Performed By: #### L 300.4310, L503.6005, L300.3900, L501.2450, L500.2500, L500.3400, L100.0100 #### [facility] [address] [place], [address] Urine clarityOrdered By: Isac Beavers on 04-22-2025 Clarity (U) Clear Clear [facility] Urine color determinationOrd ered By: Rodriguez Beavers on 04-22-2025 Color (U) Yellow Yellow [facility] Urine glucose detectionOrder ed By: Rodriguez Beavers on 04-22-2025 Glucose Ql (U) Normal mg/dl Normal [facility] Urine leukocyte esterase det ection by dipstickOrdered By: Rodriguez Beavers on 04-22-2025 Leukocyte esterase Test strip Ql (U) 25 /ul High Negative [facility] Urine pHOrdered By: Rodriguez walker on 04-22-2025 pH (U) 6.5 [pH] 5.0 - 8.0 [facility] Urine sediment bacteria coun t by microscopy (number/high power field)Ordered By: Rodriguez Beavers on 04-22-2025 Bacteria LM.HPF (Urine sed) [#/Area] 0 /[HPF] None Seen [facility] Urine specific gravity measu rementOrdered By: Rodriguez Beavers on 04-22-2025 Specific gravity (U) [Rel density] 1.015 1.002-1.03 0 [facility] Urine urobilinogen measureme ntOrdered By: Rodriguez Beavers on 04-22-2025 Urobilinogen Ql (U) 4 mg/dl High Normal [facility] White blood cell (WBC) count Ordered By: Rodriguez Beavers on 04-22-2025 WBC (Bld) [#/Vol] 14.6 10*3/uL High 4.4-11.0 [facility] White blood cell countOrdere d By: Rodriguez Beavers on 04-22-2025 White blood cell count 5-10 SEEN /hpf 0-5 [facility] Abdomen/Pelvis W IV Cont ONL Yon 04-21-2025 Abdomen/Pelvis W IV Cont ONLY [facility] [address] [place], [place] [id number] Abdomen/Pelvis W IV Cont ONLY MR#: [id number] Acct: [id number] Name: AIMEE DUCKWORTH Rep #: [id number] : 1990 M 34 From: Murphy henderson MD PCP: Dr. Kamron Erickson MD Status: REG ER Study: Abdomen/Pelvis W IV Cont ONLY Date of Exam: Exam# [id number] Ordering Dr: Diomedes York DO PROCEDURE: ABDOMEN/PELVIS [...] pneumatosis coli. Mild diffuse spondylosis. Reading Location: [place] [address] CC: Dr. Kamron Erickson MD; Diomedes York DO Public Relations Sales Marketing: Signed Normal [facility] Absolute lymphocyte countOrd ered By: Diomedes York on 04-21-2025 Lymphocytes Auto (Unsp spec) [#/Vol] 1.75 10*3/uL 0.83-4.51 [facility] Absolute neutrophil countOrd ered By: Diomedes York on 04-21-2025 Neutrophils (Bld) [#/Vol] 11.4 10*3/uL High 2.0-7.7 [facility] Anion gap in Serum or Plasma Ordered By: Diomedes York on 04-21-2025 Anion gap [Moles/Vol] 17 mmol/L High 5-15 [facility] Automated lymphocyte count a s percentage of total leukocytesOrdered By: Diomedes York on 04-21-2025 Lymphocytes/100 WBC Auto (Unsp spec) 12.5 % Low 19-41 [facility] BUN/creatinine ratioOrdered By: Diomedes York on 04-21-2025 Urea nitrogen/Creatinine [Mass ratio] 7.2 mg/mg Low 10-20 [facility] Basic Metabolic Profile (BMP )on 04-21-2025 BUN/CRE 7.2 RATIO Low 10-20 [facility] Comment on above: Performed By: #### L 300.4310, L503.6005, L300.3900, L501.2450, L500.2500, L500.3400, L100.0100 #### [facility] [address] [place], [address] Calcium [Mass/Vol] 9.4 mg/dL Normal 7.6-11.0 [facility] Comment on above: Performed By: #### L 300.4310, L503.6005, L300.3900, L501.2450, L500.2500, L500.3400, L100.0100 #### [facility] [address] [place], [address] Chloride [Moles/Vol] 104 mmol/L Normal 98-108 [facility] Comment on above: Performed By: #### L 300.4310, L503.6005, L300.3900, L501.2450, L500.2500, L500.3400, L100.0100 #### [facility] [address] [place], [address] CO2 [Moles/Vol] 23.4 mmol/L Normal 21.0-32.0 [facility] Comment on above: Performed By: #### L 300.4310, L503.6005, L300.3900, L501.2450, L500.2500, L500.3400, L100.0100 #### [facility] [address] [place], [address] Creatinine [Mass/Vol] 1.44 mg/dL High 0.70-1.20 [facility] Comment on above: Performed By: #### L 300.4310, L503.6005, L300.3900, L501.2450, L500.2500, L500.3400, L100.0100 #### [facility] [address] [place], [place], [id number] (135 ECRCL 96.43 ml/min Normal 50-250 [facility] Comment on above: Performed By: #### L 300.4310, L503.6005, L300.3900, L501.2450, L500.2500, L500.3400, L100.0100 #### [facility] [address] [place], [address] GAP 17 High 5-15 [facility] Comment on above: Performed By: #### L 300.4310, L503.6005, L300.3900, L501.2450, L500.2500, L500.3400, L100.0100 #### [facility] [address] [place], [address] GFR/1.73 sq M.predicted among non-blacks MDRD (S/P/Bld) [Vol rate/Area] 65 mL/min/{1.73_m2} Normal >60 [facility] Comment on above: Result Comment: mL/m in/1.73m2 CKD-EPI Creatinine Equation (2020) Performed By: #### L 300.4310, L503.6005, L300.3900, L501.2450, L500.2500, L500.3400, L100.0100 #### [facility] [address] [place], [address] Glucose [Mass/Vol] 125 mg/dL High 70-99 [facility] Comment on above: Performed By: #### L 300.4310, L503.6005, L300.3900, L501.2450, L500.2500, L500.3400, L100.0100 #### [facility] [address] [place], [address] Potassium [Moles/Vol] 3.9 mmol/L Normal 3.3-5.1 [facility] Comment on above: Performed By: #### L 300.4310, L503.6005, L300.3900, L501.2450, L500.2500, L500.3400, L100.0100 #### [facility] [address] [place], [address] Sodium [Moles/Vol] 144 mmol/L Normal 133-145 [facility] Comment on above: Performed By: #### L 300.4310, L503.6005, L300.3900, L501.2450, L500.2500, L500.3400, L100.0100 #### [facility] [address] [place], [address] Urea nitrogen [Mass/Vol] 10 mg/dL Normal 4-19 [facility] Comment on above: Performed By: #### L 300.4310, L503.6005, L300.3900, L501.2450, L500.2500, L500.3400, L100.0100 #### [facility] [address] [place], [address] Basophil percentageOrdered B y: Diomedes York on 04-21-2025 Basophils/100 WBC (Bld) 0.4 % 0-1 [facility] Bilirubin directOrdered By: Diomedes York on 04-21-2025 Bilirubin.direct [Mass/Vol] 0.18 mg/dL 0.00-0.3 0 [facility] Bilirubin, totalOrdered By: Diomedes York on 04-21-2025 Bilirubin [Mass/Vol] 0.42 mg/dL 0.00-1.30 [facility] CBC W/Diff, Automatedon 04-04 Absolute Lymph 1.75 X10 3/uL Normal 0.83-4.51 [facility] Comment on above: Performed By: #### L 300.4310, L503.6005, L300.3900, L501.2450, L500.2500, L500.3400, L100.0100 #### [facility] [address] [place], [address] Absolute Neut 11.4 X10 3/uL High 2.0-7.7 [facility] Comment on above: Performed By: #### L 300.4310, L503.6005, L300.3900, L501.2450, L500.2500, L500.3400, L100.0100 #### [facility] [address] [place], [address] Basophils/100 WBC (Bld) 0.4 % Normal 0-1 [facility] Comment on above: Performed By: #### L 300.4310, L503.6005, L300.3900, L501.2450, L500.2500, L500.3400, L100.0100 #### [facility] [address] [place], [address] Eosinophils/100 WBC (Bld) 0.2 % Normal 0-5 [facility] Comment on above: Performed By: #### L 300.4310, L503.6005, L300.3900, L501.2450, L500.2500, L500.3400, L100.0100 #### [facility] [address] [place], [address] Erythrocyte distribution width (RBC) [Ratio] 12.3 % Normal 11.6-14.6 [facility] Comment on above: Performed By: #### L 300.4310, L503.6005, L300.3900, L501.2450, L500.2500, L500.3400, L100.0100 #### [facility] [address] [facility] [place], [address] Hematocrit (Bld) [Volume fraction] 48.7 % Normal 40-54 [facility] Comment on above: Performed By: #### L 300.4310, L503.6005, L300.3900, L501.2450, L500.2500, L500.3400, L100.0100 #### [facility] [address] [facility] [place], [address] Hemoglobin (Bld) [Mass/Vol] 16.4 g/dL Normal 13.0-16. 5 [facility] Comment on above: Performed By: #### L 300.4310, L503.6005, L300.3900, L501.2450, L500.2500, L500.3400, L100.0100 #### [facility] [address] [place], [address] IG% 0.400 Normal 0.0-0.9 [facility] Comment on above: Result Comment: IG% - Immature Granulocytes (promyelocytes, myelocytes and metamyelocytes) > 1% indicates that a LEFT SHIFT is Present. Performed By: #### L 300.4310, L503.6005, L300.3900, L501.2450, L500.2500, L500.3400, L100.0100 #### [facility] [address] [place], [address] Lymphocytes/100 WBC (Bld) 12.5 % Low 19-41 [facility] Comment on above: Performed By: #### L 300.4310, L503.6005, L300.3900, L501.2450, L500.2500, L500.3400, L100.0100 #### [facility] [address] [place], [address] MCH (RBC) [Entitic mass] 31.5 pg Normal 27.0-32.0 [facility] Comment on above: Performed By: #### L 300.4310, L503.6005, L300.3900, L501.2450, L500.2500, L500.3400, L100.0100 #### [facility] [address] [place], [address] MCHC (RBC) [Mass/Vol] 33.7 g/dL Normal 32-36 [facility] Comment on above: Performed By: #### L 300.4310, L503.6005, L300.3900, L501.2450, L500.2500, L500.3400, L100.0100 #### [facility] [address] [place], [address] MCV (RBC) [Entitic vol] 93.7 fL Normal 80-94 [facility] Comment on above: Performed By: #### L 300.4310, L503.6005, L300.3900, L501.2450, L500.2500, L500.3400, L100.0100 #### [facility] [address] [place], [address] Monocytes/100 WBC (Bld) 5.4 % Normal 0-10 [facility] Comment on above: Performed By: #### L 300.4310, L503.6005, L300.3900, L501.2450, L500.2500, L500.3400, L100.0100 #### [facility] [address] [place], [address] Neutrophils/100 WBC (Bld) 81.1 % High 47-70 [facility] Comment on above: Performed By: #### L 300.4310, L503.6005, L300.3900, L501.2450, L500.2500, L500.3400, L100.0100 #### [facility] [address] [place], [address] Nucleated RBC (Bld) [#/Vol] 0 10*3/uL Normal 0-5 [facility] Comment on above: Performed By: #### L 300.4310, L503.6005, L300.3900, L501.2450, L500.2500, L500.3400, L100.0100 #### [facility] [address] [place], [address] Platelet mean volume (Bld) [Entitic vol] 9.9 fL Normal 6.2-12.0 [facility] Comment on above: Performed By: #### L 300.4310, L503.6005, L300.3900, L501.2450, L500.2500, L500.3400, L100.0100 #### [facility] [address] [place], [address] Platelets (Bld) [#/Vol] 372 10*3/uL Normal 150-450 [facility] Comment on above: Performed By: #### L 300.4310, L503.6005, L300.3900, L501.2450, L500.2500, L500.3400, L100.0100 #### [facility] [address] [place], [address] RBC (Bld) [#/Vol] 5.20 10*6/uL Normal 4.6-6.2 [facility] Comment on above: Performed By: #### L 300.4310, L503.6005, L300.3900, L501.2450, L500.2500, L500.3400, L100.0100 #### [facility] [address] [place], [address] RDW SD 42.9 fl Normal 35.1-43.9 [facility] Comment on above: Performed By: #### L 300.4310, L503.6005, L300.3900, L501.2450, L500.2500, L500.3400, L100.0100 #### [facility] [address] [place], [address] WBC (Bld) [#/Vol] 14.0 10*3/uL High 4.4-11.0 [facility] Comment on above: Performed By: #### L 300.4310, L503.6005, L300.3900, L501.2450, L500.2500, L500.3400, L100.0100 #### [facility] [address] [facility] [place], [address] Carbon dioxide, total [Moles /volume] in Central venous bloodOrdered By: Diomedes York on 04-21-2025 CO2 [Moles/Vol] 23.4 mmol/L 21.0-32.0 [facility] Chloride assayOrdered By: Violet York on 04-21-2025 Chloride [Moles/Vol] 104 mmol/L 98-108 [facility] Emergency Department Summary on 04-21-2025 Emergency Department Summary [facility] Medical Records Department [address] [place] [address] Emergency Department Summary 04/21/25 MR#: [id number] Acct: [id number] Name: DONITAAIMEEMeghan LINTON Rep #: [id number] : 1990 34 From: Diomedes York DO [...] secondary to this he presents for evaluation. [facility] Medical History Spinal stenosis Schizophrenia Depression [...] soft Extr (more content not included)... Normal [facility] Eosinophil percentageOrdered By: Diomedes York on 04-21-2025 Eosinophils/100 WBC (Bld) 0.2 % 0-5 [facility] Erythrocyte distribution wid th ratioOrdered By: Diomedes York on 04-21-2025 Erythrocyte distribution width (RBC) [Ratio] 12.3 % 11.6-14.6 [facility] Erythrocyte distribution wid th standard deviationOrdered By: Diomedes York on 04-21-2025 Erythrocyte distribution width (RBC) [Ratio] 42.9 fl 35.1-43.9 [facility] Glomerular filtration rate ( GFR) estimation/1.73 sq m using serum, plasma, or whole bOrdered By: Diomedes York on 04-21-2025 GFR/1.73 sq M.predicted among non-blacks MDRD (S/P/Bld) [Vol rate/Area] 65 mL/min/{1.73_m2} >60 [facility] Comment on above: mL/min/1.73m2 CKD-EP I Creatinine Equation (2020) Hematocrit Auto (Bld) [Volum e fraction]Ordered By: Diomedes York on 04-21-2025 Hematocrit (Bld) [Volume fraction] 48.7 % 40-54 [facility] Hemoglobin measurementOrdere d By: Diomedes York on 04-21-2025 Hemoglobin (Bld) [Mass/Vol] 16.4 g/dL 13.0-16. 5 [facility] Immature granulocytes/100 WB C Auto (Bld)Ordered By: Diomedes York on 04-21-2025 Immature granulocytes/100 WBC (Bld) 0.400 % 0.0-0.9 [facility] Comment on above: IG% - Immature Granu locytes (promyelocytes, myelocytes and metamyelocytes) > 1% indicates that a LEFT SHIFT is Present. Laboratory - Chemistry and C hemistry - challengeOrdered By: Diomedes York on 04-21-2025 AST [Catalytic activity/Vol] 14 U/L <38 [facility] Lipaseon 04-21-2025 Lipase [Catalytic activity/Vol] 27 U/L Normal 13-75 [facility] Comment on above: Result Comment: Heavenly wolff note: LIPASE revised reference range effective 22. New Lipase methodology. Expected to produce lower values than the previous assay method. NEW Reference Range: 13 - 75 U/L Performed By: #### L 300.4310, L503.6005, L300.3900, L501.2450, L500.2500, L500.3400, L100.0100 #### [facility] [address] [place], [address] Lipase measurementOrdered By : Diomedes York on 04-21-2025 Lipase [Catalytic activity/Vol] 27 U/L [facility] Comment on above: Please note:LIPASE r evised reference range effective 22. New Lipase methodology. Expected to produce lower values than the previous assay method. NEW Reference Range: 13 - 75 U/L Liver Profileon 04-21-2025 Albumin [Mass/Vol] 4.5 g/dL Normal 3.5-5.0 [facility] Comment on above: Performed By: #### L 300.4310, L503.6005, L300.3900, L501.2450, L500.2500, L500.3400, L100.0100 #### [facility] [address] [place], [address] ALK PHOS 77 U/L Normal 40-129 [facility] Comment on above: Performed By: #### L 300.4310, L503.6005, L300.3900, L501.2450, L500.2500, L500.3400, L100.0100 #### [facility] [address] [place], [address] ALT [Catalytic activity/Vol] 12 U/L Normal <=46 [facility] Comment on above: Performed By: #### L 300.4310, L503.6005, L300.3900, L501.2450, L500.2500, L500.3400, L100.0100 #### [facility] [address] [place], [address] AST [Catalytic activity/Vol] 14 U/L Normal <=37 [facility] Comment on above: Performed By: #### L 300.4310, L503.6005, L300.3900, L501.2450, L500.2500, L500.3400, L100.0100 #### [facility] [address] [place], [address] Bilirubin [Mass/Vol] 0.42 mg/dL Normal 0.00-1.30 [facility] Comment on above: Performed By: #### L 300.4310, L503.6005, L300.3900, L501.2450, L500.2500, L500.3400, L100.0100 #### [facility] [address] [place], [address] Bilirubin.direct [Mass/Vol] 0.18 mg/dL Normal 0.00-0.3 0 [facility] Comment on above: Performed By: #### L 300.4310, L503.6005, L300.3900, L501.2450, L500.2500, L500.3400, L100.0100 #### [facility] [address] [place], [address] Globulin (S) [Mass/Vol] 2.7 g/dL Normal 2.2-4.2 [facility] Comment on above: Performed By: #### L 300.4310, L503.6005, L300.3900, L501.2450, L500.2500, L500.3400, L100.0100 #### [facility] [address] [place], [address] T PROT 7.2 g/dL Normal 5.9-8.4 [facility] Comment on above: Performed By: #### L 300.4310, L503.6005, L300.3900, L501.2450, L500.2500, L500.3400, L100.0100 #### [facility] [place], [address] MCV (mean corpuscular volume ) determinationOrdered By: Diomedes York on 04-21-2025 MCV (RBC) [Entitic vol] 93.7 fL 80-94 [facility] Mean corpuscular hemoglobin (MCH) determinationOrdered By: Diomedes York on 04-21-2025 MCH (RBC) [Entitic mass] 31.5 pg 27.0-32.0 [facility] Mean corpuscular hemoglobin concentration (MCHC) determinationOrdered By: Diomedes York on 04-21-2025 MCHC (RBC) [Mass/Vol] 33.7 g/dL 32-36 [facility] Mean platelet volume determi nationOrdered By: Diomedes York on 04-21-2025 Platelet mean volume (Bld) [Entitic vol] 9.9 fL 6.2-12.0 [facility] Monocyte percentageOrdered B y: Diomedes York on 04-21-2025 Monocytes/100 WBC (Bld) 5.4 % 0-10 [facility] Neutrophil percentageOrdered By: Diomedes York on 04-21-2025 Neutrophils/100 WBC (Bld) 81.1 % High 47-70 [facility] Nucleated red blood cell per centageOrdered By: Diomedes York on 04-21-2025 Nucleated RBC/100 WBC (Bld) [Ratio] 0 % 0-5 [facility] Platelet countOrdered By: Violet York on 04-21-2025 Platelets (Bld) [#/Vol] 372 10*3/uL 150-450 [facility] Potassium measurement (mass/ volume)Ordered By: Diomedes York on 04-21-2025 Potassium (Unsp spec) [Mass/Vol] 3.9 mmol/L 3.3-5.1 [facility] RBC Auto (Bld) [#/Vol]Ordere d By: Diomedes York on 04-21-2025 RBC (Bld) [#/Vol] 5.20 10*6/uL 4.6-6.2 [facility] Serum creatinine measurement (mass/volume)Ordered By: Diomedes York on 04-21-2025 Creatinine [Mass/Vol] 1.44 mg/dL High 0.70-1.20 [facility] Serum globulin measurementOr dered By: Diomedes York on 04-21-2025 Globulin (S) [Mass/Vol] 2.7 g/dL 2.2-4.2 [facility] Serum glucose measurement (m ass/volume)Ordered By: Diomedes York on 04-21-2025 Glucose [Mass/Vol] 125 mg/dL High 70-99 [facility] Serum or plasma alanine comer otransferase (ALT) measurementOrdered By: Diomedes York on 04-21-2025 ALT [Catalytic activity/Vol] 12 U/L <47 [facility] Serum or plasma albumin mauro urement (mass/volume)Ordered By: Diomedes York on 04-21-2025 Albumin [Mass/Vol] 4.5 g/dL 3.5-5.0 [facility] Serum or plasma alkaline fatuma sphatase measurementOrdered By: Diomedes York on 04-21-2025 ALP [Catalytic activity/Vol] 77 U/L 40-129 [facility] Serum or plasma calcium mauro urement (mass/volume)Ordered By: Diomedes York on 04-21-2025 Calcium [Mass/Vol] 9.4 mg/dL 7.6-11.0 [facility] Serum or plasma urea nitroge n measurement (mass/volume)Ordered By: Diomedes York on 04-21-2025 Urea nitrogen [Mass/Vol] 10 mg/dL 4-19 [facility] Sodium levelOrdered By: Gordo York on 04-21-2025 Sodium [Moles/Vol] 144 mmol/L 133-145 [facility] Total proteinOrdered By: Luis York on 04-21-2025 Protein [Mass/Vol] 7.2 g/dL 5.9-8.4 [facility] White blood cell (WBC) count Ordered By: Diomedes York on 04-21-2025 WBC (Bld) [#/Vol] 14.0 10*3/uL High 4.4-11.0 [facility] 12 Lead EKGon 11-03-2024 12 Lead EKG [facility] [address] [place] [address] 12 Lead EKG 11/03/24 0504 MR#: [id number] Acct: [id number] Name: AIMEE DUCKWORTH Rep #: [id number] : 1990 34 From: Manuel Kim MD [...] rhythm Normal ECG Confirmed by Manuel Kim ([id number]), features editor JANELL RIVERA ([id number]) on 11/03/2024 7:58:31 AM Referred By: LORI Confirmed By: Manuel Kim 11/03/24 0758 Date Manuel Kim MD CC: Dr. Román Sandoval MD; Dr. Kamron Erickson MD Signed Normal [facility] Absolute neutrophil countOrd ered By: Román Sandoval on 11-03-2024 Neutrophils (Bld) [#/Vol] 3.8 10*3/uL 2.0-7.7 [facility] Anion gap in Serum or Plasma Ordered By: Román Sandoval on 11-03-2024 Anion gap [Moles/Vol] 8 mmol/L 5-15 [facility] BUN/creatinine ratioOrdered By: Román Sandoval on 11-03-2024 Urea nitrogen/Creatinine [Mass ratio] 6.6 mg/mg Low 10-20 [facility] Basophil percentageOrdered B y: Román Sandoval on 11-03-2024 Basophils/100 WBC (Bld) 0.3 % 0-1 [facility] Bilirubin, totalOrdered By: Román Sandoval on 11-03-2024 Bilirubin [Mass/Vol] 0.16 mg/dL 0.00-1.30 [facility] CBC W/Diff, Automatedon Absolute Lymph 1.14 X10 3/uL Normal 0.83-4.51 [facility] Comment on above: Performed By: #### L 300.4310, L503.6005, L300.3900, L501.2450, L500.2500, L500.3400, L100.0100 #### [facility] [address] [place], [address] Absolute Neut 3.8 X10 3/uL Normal 2.0-7.7 [facility] Comment on above: Performed By: #### L 300.4310, L503.6005, L300.3900, L501.2450, L500.2500, L500.3400, L100.0100 #### [facility] [address] [place], [address] Basophils/100 WBC (Bld) 0.3 % Normal 0-1 [facility] Comment on above: Performed By: #### L 300.4310, L503.6005, L300.3900, L501.2450, L500.2500, L500.3400, L100.0100 #### [facility] [address] [place], [address] Eosinophils/100 WBC (Bld) 0.5 % Normal 0-5 [facility] Comment on above: Performed By: #### L 300.4310, L503.6005, L300.3900, L501.2450, L500.2500, L500.3400, L100.0100 #### [facility] [address] [place], [address] Erythrocyte distribution width (RBC) [Ratio] 13.8 % Normal 11.6-14.6 [facility] Comment on above: Performed By: #### L 300.4310, L503.6005, L300.3900, L501.2450, L500.2500, L500.3400, L100.0100 #### [facility] [address] [place], [address] Hematocrit (Bld) [Volume fraction] 38.0 % Low 40-54 [facility] Comment on above: Performed By: #### L 300.4310, L503.6005, L300.3900, L501.2450, L500.2500, L500.3400, L100.0100 #### [facility] [address] [facility] [place], [address] Hemoglobin (Bld) [Mass/Vol] 12.6 g/dL Low 13.0-16. 5 [facility] Comment on above: Performed By: #### L 300.4310, L503.6005, L300.3900, L501.2450, L500.2500, L500.3400, L100.0100 #### [facility] [address] [facility] [place], [address] IG% 0.500 Normal 0.0-0.9 [facility] Comment on above: Result Comment: IG% - Immature Granulocytes (promyelocytes, myelocytes and metamyelocytes) > 1% indicates that a LEFT SHIFT is Present. Performed By: #### L 300.4310, L503.6005, L300.3900, L501.2450, L500.2500, L500.3400, L100.0100 #### [facility] [address] [facility] [place], [address] Lymphocytes/100 WBC (Bld) 19.2 % Normal 19-41 [facility] Comment on above: Performed By: #### L 300.4310, L503.6005, L300.3900, L501.2450, L500.2500, L500.3400, L100.0100 #### [facility] [address] [place], [address] MCH (RBC) [Entitic mass] 31.2 pg Normal 27.0-32.0 [facility] Comment on above: Performed By: #### L 300.4310, L503.6005, L300.3900, L501.2450, L500.2500, L500.3400, L100.0100 #### [facility] [address] [place], [address] MCHC (RBC) [Mass/Vol] 33.2 g/dL Normal 32-36 [facility] Comment on above: Performed By: #### L 300.4310, L503.6005, L300.3900, L501.2450, L500.2500, L500.3400, L100.0100 #### [facility] [address] [place], [address] MCV (RBC) [Entitic vol] 94.1 fL High 80-94 [facility] Comment on above: Performed By: #### L 300.4310, L503.6005, L300.3900, L501.2450, L500.2500, L500.3400, L100.0100 #### [facility] [address] [place], [address] Monocytes/100 WBC (Bld) 16.0 % High 0-10 [facility] Comment on above: Performed By: #### L 300.4310, L503.6005, L300.3900, L501.2450, L500.2500, L500.3400, L100.0100 #### [facility] [address] [place], [address] Neutrophils/100 WBC (Bld) 63.5 % Normal 47-70 [facility] Comment on above: Performed By: #### L 300.4310, L503.6005, L300.3900, L501.2450, L500.2500, L500.3400, L100.0100 #### [facility] [address] [place], [address] Nucleated RBC (Bld) [#/Vol] 0 10*3/uL Normal 0-5 [facility] Comment on above: Performed By: #### L 300.4310, L503.6005, L300.3900, L501.2450, L500.2500, L500.3400, L100.0100 #### [facility] [address] [place], [address] Platelet mean volume (Bld) [Entitic vol] 9.6 fL Normal 6.2-12.0 [facility] Comment on above: Performed By: #### L 300.4310, L503.6005, L300.3900, L501.2450, L500.2500, L500.3400, L100.0100 #### [facility] [address] [place], [address] Platelets (Bld) [#/Vol] 172 10*3/uL Normal 150-450 [facility] Comment on above: Performed By: #### L 300.4310, L503.6005, L300.3900, L501.2450, L500.2500, L500.3400, L100.0100 #### [facility] [address] [place], [address] RBC (Bld) [#/Vol] 4.04 10*6/uL Low 4.6-6.2 [facility] Comment on above: Performed By: #### L 300.4310, L503.6005, L300.3900, L501.2450, L500.2500, L500.3400, L100.0100 #### [facility] [address] [place], [address] RDW SD 48.2 fl High 35.1-43.9 [facility] Comment on above: Performed By: #### L 300.4310, L503.6005, L300.3900, L501.2450, L500.2500, L500.3400, L100.0100 #### [facility] [address] [place], [address] WBC (Bld) [#/Vol] 5.9 10*3/uL Normal 4.4-11.0 [facility] Comment on above: Performed By: #### L 300.4310, L503.6005, L300.3900, L501.2450, L500.2500, L500.3400, L100.0100 #### [facility] [address] [place], [address] Carbon dioxide, total [Moles /volume] in Central venous bloodOrdered By: Román Sandoval on 11-03-2024 CO2 [Moles/Vol] 24.6 mmol/L 21.0-32.0 [facility] Chloride assayOrdered By: Huy Sandoval on 11-03-2024 Chloride [Moles/Vol] 104 mmol/L 98-108 [facility] Comprehensive Metabolic Prof ilon 11-03-2024 Albumin [Mass/Vol] 3.6 g/dL Normal 3.5-5.0 [facility] Comment on above: Performed By: #### L 300.4310, L503.6005, L300.3900, L501.2450, L500.2500, L500.3400, L100.0100 #### [facility] [address] [place], [address] Albumin/Globulin [Mass ratio] 1.9 {ratio} Normal 0.9-2.4 [facility] Comment on above: Performed By: #### L 300.4310, L503.6005, L300.3900, L501.2450, L500.2500, L500.3400, L100.0100 #### [facility] [facility] [address] [place], [address] ALK PHOS 66 U/L Normal 40-129 [facility] Comment on above: Performed By: #### L 300.4310, L503.6005, L300.3900, L501.2450, L500.2500, L500.3400, L100.0100 #### [facility] [address] [place], [place], [id number] ALT [Catalytic activity/Vol] 19 U/L Normal <=46 [facility] Comment on above: Performed By: #### L 300.4310, L503.6005, L300.3900, L501.2450, L500.2500, L500.3400, L100.0100 #### [facility] [address] [place], [place], [id number] [phone] AST [Catalytic activity/Vol] 22 U/L Normal <=37 [facility] Comment on above: Performed By: #### L 300.4310, L503.6005, L300.3900, L501.2450, L500.2500, L500.3400, L100.0100 #### [facility] [address] [place], [place], [address] Bilirubin [Mass/Vol] 0.16 mg/dL Normal 0.00-1.30 [facility] Comment on above: Performed By: #### L 300.4310, L503.6005, L300.3900, L501.2450, L500.2500, L500.3400, L100.0100 #### [facility] [address] [place], [place], [phone] ([phone] BUN/CRE 6.6 RATIO Low 10-20 [facility] Comment on above: Performed By: #### L 300.4310, L503.6005, L300.3900, L501.2450, L500.2500, L500.3400, L100.0100 #### [facility] [address] [place], [address] Calcium [Mass/Vol] 7.8 mg/dL Normal 7.6-11.0 [facility] Comment on above: Performed By: #### L 300.4310, L503.6005, L300.3900, L501.2450, L500.2500, L500.3400, L100.0100 #### [facility] [address] [place], [address] Chloride [Moles/Vol] 104 mmol/L Normal 98-108 [facility] Comment on above: Performed By: #### L 300.4310, L503.6005, L300.3900, L501.2450, L500.2500, L500.3400, L100.0100 #### [facility] [address] [place], [address] CO2 [Moles/Vol] 24.6 mmol/L Normal 21.0-32.0 [facility] Comment on above: Performed By: #### L 300.4310, L503.6005, L300.3900, L501.2450, L500.2500, L500.3400, L100.0100 #### [facility] [address] [place], [address] Creatinine [Mass/Vol] 1.01 mg/dL Normal 0.70-1.20 [facility] Comment on above: Performed By: #### L 300.4310, L503.6005, L300.3900, L501.2450, L500.2500, L500.3400, L100.0100 #### [facility] [address] [place], [address] ECRCL 145.41 ml/min Normal 50-250 [facility] Comment on above: Performed By: #### L 300.4310, L503.6005, L300.3900, L501.2450, L500.2500, L500.3400, L100.0100 #### [facility] [address] [place], [address] GAP 8 Normal 5-15 [facility] Comment on above: Performed By: #### L 300.4310, L503.6005, L300.3900, L501.2450, L500.2500, L500.3400, L100.0100 #### [facility] [address] [place], [address] GFR/1.73 sq M.predicted among non-blacks MDRD (S/P/Bld) [Vol rate/Area] 100 mL/min/{1.73_m2} Normal >60 [facility] Comment on above: Result Comment: mL/m in/1.73m2 CKD-EPI Creatinine Equation (2020) Performed By: #### L 300.4310, L503.6005, L300.3900, L501.2450, L500.2500, L500.3400, L100.0100 #### [facility] [address] [place], [address] Globulin (S) [Mass/Vol] 1.9 g/dL Low 2.2-4.2 [facility] Comment on above: Performed By: #### L 300.4310, L503.6005, L300.3900, L501.2450, L500.2500, L500.3400, L100.0100 #### [facility] [address] [place], [address] Glucose [Mass/Vol] 97 mg/dL Normal 70-99 [facility] Comment on above: Performed By: #### L 300.4310, L503.6005, L300.3900, L501.2450, L500.2500, L500.3400, L100.0100 #### [facility] [address] [place], [address] Potassium [Moles/Vol] 4.3 mmol/L Normal 3.3-5.1 [facility] Comment on above: Performed By: #### L 300.4310, L503.6005, L300.3900, L501.2450, L500.2500, L500.3400, L100.0100 #### [facility] [address] [place], [address] Sodium [Moles/Vol] 137 mmol/L Normal 133-145 [facility] Comment on above: Performed By: #### L 300.4310, L503.6005, L300.3900, L501.2450, L500.2500, L500.3400, L100.0100 #### [facility] [address] [place], [address] T PROT 5.6 g/dL Low 5.9-8.4 [facility] Comment on above: Performed By: #### L 300.4310, L503.6005, L300.3900, L501.2450, L500.2500, L500.3400, L100.0100 #### [facility] [address] [place], [address] Urea nitrogen [Mass/Vol] 7 mg/dL Normal 4-19 [facility] Comment on above: Performed By: #### L 300.4310, L503.6005, L300.3900, L501.2450, L500.2500, L500.3400, L100.0100 #### [facility] [address] [place], [address] Electrocardiogram reportOrde red By: Manuel Kim on 11-03-2024 EKG study [facility] Cardiovascular Services [address] [place] [address] 12 Lead EKG 11/03/24 0504 MR#: [id number] Acct: [id number] Name: TONEJoeAIMEE SHAILA Rep #:[id number] : [...] rhythm Normal ECG Confirmed by Manuel Kim ([id number]), features editor JANELL RIVERA ([id number]) on 11/03/2024 7:58:31 AM Referred By: LORI Confirmed By: Manuel Kim 11/03/24 0758 Date _ Manuel Kim MD CC: Dr. Román Sandoval MD; Dr. Kamron Erickson MD ~ Signed [facility] Other Phone: EKG study [facility] Cardiovascular Services [address] [place] [address] 12 Lead EKG 11/02/24 1148 MR#: [id number] Acct: [id number] Name: AIMEE DUCKWORTH Rep #:[id number] : [...] Abnormal ECG Confirmed by Manuel Kim ([id number]), features editor JANELL RIVERA ([id number]) on 11/03/2024 7:47:36 AM Referred By: Confirmed By: Manuel Kim 11/03/24 0747 Date _ Manuel Kmi MD CC: Dr. Román Sandoval MD; Dr. Kamron Erickson MD; Dr. Tramaine Tovar MD ~ Signed [facility] Other Phone: Eosinophil percentageOrdered By: Román Sandoval on 11-03-2024 Eosinophils/100 WBC (Bld) 0.5 % 0-5 [facility] Erythrocyte distribution wid th (RBC) [Ratio]Ordered By: Román Sandoval on 11-03-2024 Erythrocyte distribution width (RBC) [Entitic vol] 48.2 fL High 35.1-43.9 [facility] Erythrocyte distribution wid th ratioOrdered By: Román Sandoval on 11-03-2024 Erythrocyte distribution width (RBC) [Ratio] 13.8 % 11.6-14.6 [facility] Estimation of creatinine vick aranceOrdered By: Román Sandoval on 11-03-2024 Estimated Creatinine Clearance Calc 145.41 ml/min 50-250 [facility] GFR/1.73 sq M.predicted lana g non-blacks MDRD (S/P/Bld) [Vol rate/Area]Ordered By: Román Sandoval on 11-03-2024 Estimated GFR (MDRD) Non-Af Amer 100 >60 [facility] Comment on above: mL/min/1.73m2 CKD-EP I Creatinine Equation (2020) Hematocrit Auto (Bld) [Volum e fraction]Ordered By: Román Sandoval on 11-03-2024 Hematocrit (Bld) [Volume fraction] 38.0 % Low 40-54 [facility] Hemoglobin measurementOrdere d By: Román Sandoval on 11-03-2024 Hemoglobin (Bld) [Mass/Vol] 12.6 g/dL Low 13.0-16. 5 [facility] Immature granulocytes/100 WB C Auto (Bld)Ordered By: Román Sandoval on 11-03-2024 Immature granulocytes/100 WBC (Bld) 0.500 % 0.0-0.9 [facility] Comment on above: IG% - Immature Granu locytes (promyelocytes, myelocytes and metamyelocytes) > 1% indicates that a LEFT SHIFT is Present. Laboratory - Chemistry and C hemistry - challengeOrdered By: Román Sandoval on 11-03-2024 AST [Catalytic activity/Vol] 22 U/L <38 [facility] Lymphocytes Auto (Unsp spec) [#/Vol]Ordered By: Román Sandoval on 11-03-2024 Lymphocytes (Bld) [#/Vol] 1.14 10*3/uL 0.83-4.5 1 [facility] Lymphocytes/100 WBC Auto (Un sp spec)Ordered By: Román Sandoval on 11-03-2024 Lymphocytes/100 WBC (Bld) 19.2 % 19-41 [facility] MCV (mean corpuscular volume ) determinationOrdered By: Román Sandoval on 11-03-2024 MCV (RBC) [Entitic vol] 94.1 fL High 80-94 [facility] Magnesiumon 11-03-2024 Magnesium [Mass/Vol] 2.4 mg/dL High 1.5-2.2 [facility] Comment on above: Performed By: #### L 300.4310, L503.6005, L300.3900, L501.2450, L500.2500, L500.3400, L100.0100 #### [facility] [address] [place], [place], [id number] Magnesium (Unsp spec) [Mass/ Vol]Ordered By: Román Sandoval on 11-03-2024 Magnesium [Mass/Vol] 2.4 mg/dL High 1.5-2.2 [facility] Mean corpuscular hemoglobin (MCH) determinationOrdered By: Román Sandoval on 11-03-2024 MCH (RBC) [Entitic mass] 31.2 pg 27.0-32.0 [facility] Mean corpuscular hemoglobin concentration (MCHC) determinationOrdered By: Román Sandoval on 11-03-2024 MCHC (RBC) [Mass/Vol] 33.2 g/dL 32-36 [facility] Mean platelet volume determi nationOrdered By: Román Sandoval on 11-03-2024 Platelet mean volume (Bld) [Entitic vol] 9.6 fL 6.2-12.0 [facility] Monocyte percentageOrdered B y: Román Sandoval on 11-03-2024 Monocytes/100 WBC (Bld) 16.0 % High 0-10 [facility] Neutrophil percentageOrdered By: Román Sandoval on 11-03-2024 Neutrophils/100 WBC (Bld) 63.5 % 47-70 [facility] Nucleated red blood cell per centageOrdered By: Román Sandoval on 11-03-2024 Nucleated RBC/100 WBC (Bld) [Ratio] 0 % 0-5 [facility] Phosphoruson 11-03-2024 Phosphate [Mass/Vol] 3.5 mg/dL Normal 2.7-4.5 [facility] Comment on above: Performed By: #### L 300.4310, L503.6005, L300.3900, L501.2450, L500.2500, L500.3400, L100.0100 #### [facility] [address] [place], [place] [address], [place], [id number] Platelet countOrdered By: Huy Sandoval on 11-03-2024 Platelets (Bld) [#/Vol] 172 10*3/uL 150-450 [facility] Potassium (Unsp spec) [Mass/ Vol]Ordered By: Román Sandoval on 11-03-2024 Potassium [Moles/Vol] 4.3 mmol/L 3.3-5.1 [facility] RBC Auto (Bld) [#/Vol]Ordere d By: Román Sandoval on 11-03-2024 RBC (Bld) [#/Vol] 4.04 10*6/uL Low 4.6-6.2 [facility] Serum creatinine measurement (mass/volume)Ordered By: Román Sandoval on 11-03-2024 Creatinine [Mass/Vol] 1.01 mg/dL 0.70-1.20 [facility] Serum globulin measurementOr dered By: Román Sandoval on 11-03-2024 Globulin (S) [Mass/Vol] 1.9 g/dL Low 2.2-4.2 [facility] Serum glucose measurement (m ass/volume)Ordered By: Román Sandoval on 11-03-2024 Glucose [Mass/Vol] 97 mg/dL 70-99 [facility] Serum or plasma alanine comer otransferase (ALT) measurementOrdered By: Román Sandoval on 11-03-2024 ALT [Catalytic activity/Vol] 19 U/L <47 [facility] Serum or plasma albumin mauro urement (mass/volume)Ordered By: Román Sandoval on 11-03-2024 Albumin [Mass/Vol] 3.6 g/dL 3.5-5.0 [facility] Serum or plasma albumin/glob ulin mass ratioOrdered By: Román Sandoval on 11-03-2024 Albumin/Globulin [Mass ratio] 1.9 {ratio} 0.9-2.4 [facility] Serum or plasma alkaline fatuma sphatase measurementOrdered By: Román Sandoval on 11-03-2024 ALP [Catalytic activity/Vol] 66 U/L 40-129 [facility] Serum or plasma calcium mauro urement (mass/volume)Ordered By: Román Sandoval on 11-03-2024 Calcium [Mass/Vol] 7.8 mg/dL 7.6-11.0 [facility] Serum or plasma urea nitroge n measurement (mass/volume)Ordered By: Román Sandoval on 11-03-2024 Urea nitrogen [Mass/Vol] 7 mg/dL 4-19 [facility] Serum phosphorus measurement Ordered By: Román Sandoval on 11-03-2024 Phosphorus Level 3.5 mg/dL 2.7-4.5 [facility] Sodium levelOrdered By: Matt Sandoval on 11-03-2024 Sodium [Moles/Vol] 137 mmol/L 133-145 [facility] Total proteinOrdered By: Maxx Sandoval on 11-03-2024 Protein [Mass/Vol] 5.6 g/dL Low 5.9-8.4 [facility] White blood cell (WBC) count Ordered By: Román Sandoval on 11-03-2024 WBC (Bld) [#/Vol] 5.9 10*3/uL 4.4-11.0 [facility] 12 Lead EKGon 11-02-2024 12 Lead EKG [facility] Cardiovascular Services [address] [place] [address] 12 Lead EKG 11/02/24 1148 MR#: [id number] Acct: [id number] Name: AIMEE DUCKWORTH Rep #: [id number] : 1990 34 From: Manuel Kim MD [...] Abnormal ECG Confirmed by Manuel Kim ([id number]), features editor JANELL RIVERA ([id number]) on 11/03/2024 7:47:36 AM Referred By: Confirmed By: Manuel Kim 11/03/24 0747 Date Manuel Kim MD CC: Dr. Román Sandoval MD; Dr. Kamron Erickson MD; Dr. Tramaine Tovar MD Signed Normal [facility] Absolute neutrophil countOrd ered By: Tramaine Tovar on 11-02-2024 Neutrophils (Bld) [#/Vol] 5.0 10*3/uL 2.0-7.7 [facility] Acetaminophen (Tylenol) Leve sandra 11-02-2024 Acetaminophen [Mass/Vol] 10.5 ug/mL Normal 8.0-19.0 [facility] Comment on above: Result Comment: Acet aminophen concentrations > 200 ug/mL four hours after ingestion, > 100 ug/mL eight hours after ingestion, and > 50 ug/mL 12 hours after ingestion are potentially toxic. Performed By: #### L 300.4310, L503.6005, L300.3900, L501.2450, L500.2500, L500.3400, L100.0100 #### [facility] [address] [place], [address] Alcohol, Blood (Medical)-Ser umon 11-02-2024 SERUM ETOH < 10.1 Normal <=10.0 [facility] Comment on above: Result Comment: This test is for medical purposes only. The legal definition of intoxication varies according to local law. Performed By: #### L 300.4310, L503.6005, L300.3900, L501.2450, L500.2500, L500.3400, L100.0100 #### [facility] [address] [place], [address] Amphetamines Screen method > 1000 ng/mL Ql (U)Ordered By: Tramaine Tovar on 11-02-2024 Amphetamines Ql (U) Positive <1000 ng/mL [facility] Comment on above: If confirmation test ing is needed, a separate order will be required to send out testing to the reference laboratory. Urine Barbiturates Screen Negative < 200 ng/mL [facility] Anion gap in Serum or Plasma Ordered By: Tramaine Tovar on 11-02-2024 Anion gap [Moles/Vol] 14 mmol/L 5-15 [facility] BUN/creatinine ratioOrdered By: Tramaine Tovar on 11-02-2024 Urea nitrogen/Creatinine [Mass ratio] 7.4 mg/mg Low 10-20 [facility] Basophil percentageOrdered B y: Tramaine Tovar on 11-02-2024 Basophils/100 WBC (Bld) 0.5 % 0-1 [facility] Bilirubin, totalOrdered By: Tramaine Tovar on 11-02-2024 Bilirubin [Mass/Vol] 0.15 mg/dL 0.00-1.30 [facility] CBC W/Diff, Automatedon SMEAR COMMENT SCANNED Normal [facility] Comment on above: Result Comment: SLIG HT MONOCYTOSIS NOTED Performed By: #### L 300.4310, L503.6005, L300.3900, L501.2450, L500.2500, L500.3400, L100.0100 #### [facility] [address] [place], [place], [phone] Carbon dioxide, total [Moles /volume] in Central venous bloodOrdered By: Tramaine Tovar on 11-02-2024 CO2 [Moles/Vol] 23.4 mmol/L 21.0-32.0 [facility] Chloride assayOrdered By: Alanis Tovar on 11-02-2024 Chloride [Moles/Vol] 99 mmol/L 98-108 [facility] Comprehensive Metabolic Prof ilon 11-02-2024 Albumin [Mass/Vol] 3.9 g/dL Normal 3.5-5.0 [facility] Comment on above: Performed By: #### L 300.4310, L503.6005, L300.3900, L501.2450, L500.2500, L500.3400, L100.0100 #### [facility] [address] [place], [address] Albumin/Globulin [Mass ratio] 2.0 {ratio} Normal 0.9-2.4 [facility] Comment on above: Performed By: #### L 300.4310, L503.6005, L300.3900, L501.2450, L500.2500, L500.3400, L100.0100 #### [facility] [address] [place], [address] ALK PHOS 74 U/L Normal 40-129 [facility] Comment on above: Performed By: #### L 300.4310, L503.6005, L300.3900, L501.2450, L500.2500, L500.3400, L100.0100 #### [facility] [address] [place], [address] ALT [Catalytic activity/Vol] 21 U/L Normal <=46 [facility] Comment on above: Performed By: #### L 300.4310, L503.6005, L300.3900, L501.2450, L500.2500, L500.3400, L100.0100 #### [facility] [address] [place], [address] AST [Catalytic activity/Vol] 24 U/L Normal <=37 [facility] Comment on above: Performed By: #### L 300.4310, L503.6005, L300.3900, L501.2450, L500.2500, L500.3400, L100.0100 #### [facility] [address] [place], [address] Bilirubin [Mass/Vol] 0.15 mg/dL Normal 0.00-1.30 [facility] Comment on above: Performed By: #### L 300.4310, L503.6005, L300.3900, L501.2450, L500.2500, L500.3400, L100.0100 #### [facility] [address] [place], [address] BUN/CRE 7.4 RATIO Low 10-20 [facility] Comment on above: Performed By: #### L 300.4310, L503.6005, L300.3900, L501.2450, L500.2500, L500.3400, L100.0100 #### [facility] [address] [place], [address] Calcium [Mass/Vol] 8.0 mg/dL Normal 7.6-11.0 [facility] Comment on above: Performed By: #### L 300.4310, L503.6005, L300.3900, L501.2450, L500.2500, L500.3400, L100.0100 #### [facility] [address] [place], [address] Chloride [Moles/Vol] 99 mmol/L Normal 98-108 [facility] Comment on above: Performed By: #### L 300.4310, L503.6005, L300.3900, L501.2450, L500.2500, L500.3400, L100.0100 #### [facility] [address] [place], [address] CO2 [Moles/Vol] 23.4 mmol/L Normal 21.0-32.0 [facility] Comment on above: Performed By: #### L 300.4310, L503.6005, L300.3900, L501.2450, L500.2500, L500.3400, L100.0100 #### [facility] [address] [place], [address] Creatinine [Mass/Vol] 1.22 mg/dL High 0.70-1.20 [facility] Comment on above: Performed By: #### L 300.4310, L503.6005, L300.3900, L501.2450, L500.2500, L500.3400, L100.0100 #### [facility] [address] [place], [address] ECRCL 119.42 ml/min Normal 50-250 [facility] Comment on above: Performed By: #### L 300.4310, L503.6005, L300.3900, L501.2450, L500.2500, L500.3400, L100.0100 #### [facility] [address] [place], [address] GAP 14 Normal 5-15 [facility] Comment on above: Performed By: #### L 300.4310, L503.6005, L300.3900, L501.2450, L500.2500, L500.3400, L100.0100 #### [facility] [address] [place], [address] GFR/1.73 sq M.predicted among non-blacks MDRD (S/P/Bld) [Vol rate/Area] 80 mL/min/{1.73_m2} Normal >60 [facility] Comment on above: Result Comment: mL/m in/1.73m2 CKD-EPI Creatinine Equation (2020) Performed By: #### L 300.4310, L503.6005, L300.3900, L501.2450, L500.2500, L500.3400, L100.0100 #### [facility] [address] [place], [address] Globulin (S) [Mass/Vol] 2.0 g/dL Low 2.2-4.2 [facility] Comment on above: Performed By: #### L 300.4310, L503.6005, L300.3900, L501.2450, L500.2500, L500.3400, L100.0100 #### [facility] [address] [place], [address] Glucose [Mass/Vol] 161 mg/dL High 70-99 [facility] Comment on above: Performed By: #### L 300.4310, L503.6005, L300.3900, L501.2450, L500.2500, L500.3400, L100.0100 #### [facility] [address] [place], [address] Potassium [Moles/Vol] 3.4 mmol/L Normal 3.3-5.1 [facility] Comment on above: Performed By: #### L 300.4310, L503.6005, L300.3900, L501.2450, L500.2500, L500.3400, L100.0100 #### [facility] [address] [place], [address] Sodium [Moles/Vol] 136 mmol/L Normal 133-145 [facility] Comment on above: Performed By: #### L 300.4310, L503.6005, L300.3900, L501.2450, L500.2500, L500.3400, L100.0100 #### [facility] [address] [place], [address] T PROT 5.9 g/dL Normal 5.9-8.4 [facility] Comment on above: Performed By: #### L 300.4310, L503.6005, L300.3900, L501.2450, L500.2500, L500.3400, L100.0100 #### [facility] [address] [place], [address] Urea nitrogen [Mass/Vol] 9 mg/dL Normal 4-19 [facility] Comment on above: Performed By: #### L 300.4310, L503.6005, L300.3900, L501.2450, L500.2500, L500.3400, L100.0100 #### [facility] Laboratory [address] [place], [address] Emergency Department Summary on 11-02-2024 Emergency Department Summary [facility] Medical Records Department [address] [facility] [place] [address] Emergency Department Summary 11/02/24 MR#: [id number] Acct: [id number] Name: AIMEE DUCKWORTH Rep #: [id number] : 1990 34 From: Tramaine Tovar MD PCP: Dr. 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 Normal [facility] Eosinophil percentageOrdered By: Tramaine Tovar on 11-02-2024 Eosinophils/100 WBC (Bld) 2.1 % 0-5 [facility] Erythrocyte distribution wid th ratioOrdered By: Tramaine Tovar on 11-02-2024 Erythrocyte distribution width (RBC) [Ratio] 13.5 % 11.6-14.6 [facility] Erythrocyte distribution wid th standard deviationOrdered By: Tramainedelia Tovar on 11-02-2024 Erythrocyte distribution width (RBC) [Entitic vol] 46.1 fL High 35.1-43.9 [facility] Estimation of creatinine vick aranceOrdered By: Tramaine Tovar on 11-02-2024 Estimated Creatinine Clearance Calc 119.42 ml/min 50-250 [facility] Ethanol [Mass/Vol]Ordered By : Tramaine Tovar on 11-02-2024 Ethyl Alcohol Level < 10.1 mg/dL <10.1 [facility] Comment on above: This test is for med ical purposes only. The legal definition of intoxication varies according to local law. GFR/1.73 sq M.predicted lana g non-blacks MDRD (S/P/Bld) [Vol rate/Area]Ordered By: Tramaine Tovar on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 /[facility] [place] Workstation ID: [id number] Dictated by: LINO BERMUDEZ on FriMay 06, 2023 9:44:43 PM EDT Transcribed by: LUX ERNST on FriMay 06, 2023 9:48:44 PM EDT Finalized by: LINO BERMUDEZ on FriMay 06, 2023 9:54:17 PM EDT [facility] Comment on above: Order [...] Auto (Unsp spec) [#/Vol] 1.76 10*3/uL 0.83-4.51 [facility] Basophil percentageOrdered B y: Gustavo Jose on 04-13-2023 Basophils/100 WBC (Bld) 0.3 % 0-1 [facility] Bilirubin [Mass/Vol] 0.40 mg/dL 0.20-1.00 [facility] Comment on above: For patients on eltr ombopag therapy, use of [place] TBIL is not recommended. Chloride [Moles/Vol] 105 mmol/L 98-107 [facility] Eosinophils/100 WBC (Bld) 1.3 % 0-5 [facility] Glucose [Mass/Vol] 126 mg/dL 74-106 [facility] Comment on above: Fasting Glucose resu lt greater than or equal to 126 mg/dL suggests DIABETES MELLITUS per A.D.A. criteria. Neutrophils (Bld) [#/Vol] 12.9 10*3/uL 2.0-7.7 [facility] Neutrophils/100 WBC (Bld) 82.3 % 47-70 [facility] Potassium [Moles/Vol] 3.3 mmol/L 3.5-5.1 [facility] Protein [Mass/Vol] 7.1 g/dL 6.4-8.2 [facility] Sodium [Moles/Vol] 141 mmol/L 136-145 [facility] WBC (Bld) [#/Vol] 15.7 10*3/uL 4.4-11.0 [facility] Blood erythrocytes count (nu mber/volume)Ordered By: Gustavo Garcia on 04-13-2023 RBC (Bld) [#/Vol] 5.04 10*6/uL 4.6-6.2 [facility] Blood hemoglobin measurement (mass/volume)Ordered By: Gustavo Garcia on 04-13-2023 Hemoglobin (Bld) [Mass/Vol] 14.9 g/dL 13.0-16. 5 [facility] Blood lymphocytes/100 leukoc ytesOrdered By: Gustavo Garcia on 04-13-2023 Lymphocytes/100 WBC (Bld) 11.2 % 19-41 [facility] Blood monocytes/100 leukocyt esOrdered By: Gustavo Garcia on 04-13-2023 Monocytes/100 WBC (Bld) 4.5 % 0-10 [facility] Blood platelet mean volumeOr dered By: Gustavo Garcia on 04-13-2023 Platelet mean volume (Bld) [Entitic vol] 9.3 fL 6.2-12.0 [facility] Determination of erythrocyte mean corpuscular volume (MCV)Ordered By: Gustavo Garcia on 04-13-2023 MCV (RBC) [Entitic vol] 89.5 fL 80-94 [facility] Direct bilirubinOrdered By: Gustavo Garcia on 04-13-2023 Bilirubin.direct [Mass/Vol] 0.14 mg/dL 0.00-0.3 0 [facility] Hematocrit Auto (Bld) [Volum e fraction]Ordered By: Gustavo Garcia on 04-13-2023 Hematocrit (Bld) [Volume fraction] 45.1 % 40-54 [facility] - Chemistry and C hemistry - challengeOrdered By: Gustavo Garcia on 04-13-2023 ALP [Catalytic activity/Vol] 95 U/L 45-117 [facility] ALT [Catalytic activity/Vol] 18 U/L 16-61 [facility] CO2 [Moles/Vol] 30.0 mmol/L 21.0-32.0 [facility] Globulin (S) [Mass/Vol] 3.4 g/dL 2.2-4.2 [facility] Lipase [Catalytic activity/Vol] 34 U/L 13-75 [facility] Comment on above: Please note:LIPASE r evised reference range effective 22. New Lipase methodology. Expected to produce lower values than the previous assay method. NEW Reference Range: 13 - 75 U/L Urea nitrogen/Creatinine [Mass ratio] 8.2 mg/mg 10-20 [facility] - Hematology and Cell countsOrdered By: Gustavo Garcia on 04-13-2023 Erythrocyte distribution width (RBC) [Entitic vol] 42.0 fL 35.1-43.9 [facility] Erythrocyte distribution width (RBC) [Ratio] 12.8 % 11.6-14.6 [facility] Immature granulocytes/100 WBC (Bld) 0.400 % 0.0-0.9 [facility] Comment on above: IG% - Immature Granu locytes (promyelocytes, myelocytes and metamyelocytes) > 1% indicates that a LEFT SHIFT is Present. MCH (RBC) [Entitic mass] 29.6 pg 27.0-32.0 [facility] Nucleated RBC/100 WBC (Bld) [Ratio] 0 % 0-5 [facility] MCHC Auto (RBC) [Mass/Vol]Or dered By: Gustavo Garcia on 04-13-2023 MCHC (RBC) [Mass/Vol] 33.0 g/dL 32-36 [facility] No Panel InformationOrdered By: Gustavo Garcia on 04-13-2023 Estimated Creatinine Clearance Calc 120.00 ml/min [facility] Estimated GFR (MDRD) Amer 115 mL/min >60 [facility] Comment on above: GFR Calc Estimated GFR (MDRD) Non-Af Amer 95 mL/min >60 [facility] Comment on above: Non- GFR Calc Platelets bldOrdered By: Eric Garcia on 04-13-2023 Platelets (Bld) [#/Vol] 351 10*3/uL 150-450 [facility] Serum or plasma albumin mauro urement (mass/volume)Ordered By: Gustavo Garcia on 04-13-2023 Albumin [Mass/Vol] 3.7 g/dL 3.2-5.0 [facility] Serum or plasma calcium mauro urement (mass/volume)Ordered By: Gustavo Garcia on 04-13-2023 Calcium [Mass/Vol] 8.6 mg/dL 8.5-10.1 [facility] Serum or plasma creatinine m easurement (mass/volume)Ordered By: Gustavo Garcia on 04-13-2023 Creatinine [Mass/Vol] 0.97 mg/dL 0.70-1.30 [facility] Comment on above: The validity of the calculated GFR & GFRAA in patients over 70 years has not been determined. Clinical correlation is essential. Serum or plasma urea nitroge n measurement (mass/volume)Ordered By: Gustavo Garcia on 04-13-2023 Urea nitrogen [Mass/Vol] 8 mg/dL 7-18 [facility] Thin prep Papanicolaou smear with manual screeningOrdered By: Gustavo Garcia on 04-13-2023 Thin prep Papanicolaou smear with manual screening 10 U/L 15-37 [facility] Thin prep Papanicolaou smear with manual screening 6 5-15 [facility] Absolute lymphocyte counton 05-29-2022 Lymphocytes Auto (Unsp spec) [#/Vol] 2.50 10*3/uL 0.83-4.51 [facility] Work Phone: [phone] Basophil percentageon 2021 Basophils/100 WBC (Bld) 0.3 % 0-1 [facility] Work Phone: [phone] Bilirubin [Mass/Vol] 0.30 mg/dL 0.20-1.00 [facility] Work Phone: [phone] Comment on above: For patients on eltr ombopag therapy, use of [place] TBIL is not recommended. Chloride [Moles/Vol] 110 mmol/L 98-107 [facility] Work Phone: Eosinophils/100 WBC (Bld) 0.8 % 0-5 [facility] Work Phone: Glucose [Mass/Vol] 94 mg/dL 74-106 [facility] Work Phone: Neutrophils (Bld) [#/Vol] 8.4 10*3/uL 2.0-7.7 [facility] Work Phone: Neutrophils/100 WBC (Bld) 71.5 % 47-70 [facility] Work Phone: Potassium [Moles/Vol] 3.7 mmol/L 3.5-5.1 [facility] Work Phone: Protein [Mass/Vol] 7.6 g/dL 6.4-8.2 [facility] Work Phone: Sodium [Moles/Vol] 142 mmol/L 136-145 [facility] Work Phone: WBC (Bld) [#/Vol] 11.8 10*3/uL 4.4-11.0 [facility] Work Phone: Blood erythrocytes count (nu mber/volume)on 05-29-2022 RBC (Bld) [#/Vol] 4.87 10*6/uL 4.6-6.2 [facility] Work Phone: Blood hemoglobin measurement (mass/volume)on 05-29-2022 Hemoglobin (Bld) [Mass/Vol] 14.8 g/dL 13.0-16. 5 [facility] Work Phone: Blood lymphocytes/100 leukoc yteson 05-29-2022 Lymphocytes/100 WBC (Bld) 21.2 % 19-41 [facility] Work Phone: Blood monocytes/100 leukocyt eson 05-29-2022 Monocytes/100 WBC (Bld) 5.8 % 0-10 [facility] Work Phone: Blood platelet mean volumeon 05-29-2022 Platelet mean volume (Bld) [Entitic vol] 9.6 fL 6.2-12.0 [facility] Work Phone: Determination of erythrocyte mean corpuscular volume (MCV)on 05-29-2022 MCV (RBC) [Entitic vol] 91.8 fL 80-94 [facility] Work Phone: Hematocrit Auto (Bld) [Volum e fraction]on 05-29-2022 Hematocrit (Bld) [Volume fraction] 44.7 % 40-54 [facility] Work Phone: Laboratory - Chemistry and C hemistry - challengeon 05-29-2022 ALP [Catalytic activity/Vol] 94 U/L 45-117 [facility] Work Phone: ALT [Catalytic activity/Vol] 23 U/L 16-61 [facility] Work Phone: CO2 [Moles/Vol] 26.0 mmol/L 21.0-32.0 [facility] Work Phone: Globulin (S) [Mass/Vol] 3.6 g/dL 2.2-4.2 [facility] Work Phone: Urea nitrogen/Creatinine [Mass ratio] 11.9 mg/mg 10-20 [facility] Work Phone: Laboratory - Drug toxicology on 05-29-2022 Amphetamines Ql (U) Negative <1000 ng/mL [facility] Work Phone: Benzodiazepines Ql (U) Negative < 200 ng/mL [facility] Work Phone: Cannabinoids Screen Ql (U) Positive < 50 ng/m L [facility] Work Phone: Cocaine Ql (U) Negative < 300 ng/mL [facility] Work Phone: Opiates Ql (U) Negative < 300 ng/mL [facility] Work Phone: Laboratory - Hematology and Cell countson 05-29-2022 Erythrocyte distribution width (RBC) [Entitic vol] 42.7 fL 35.1-43.9 [facility] Work Phone: Erythrocyte distribution width (RBC) [Ratio] 12.6 % 11.6-14.6 [facility] Work Phone: Immature granulocytes/100 WBC (Bld) 0.400 % 0.0-0.9 [facility] Work Phone: Comment on above: IG% - Immature Granu locytes (promyelocytes, myelocytes and metamyelocytes) > 1% indicates that a LEFT SHIFT is Present. MCH (RBC) [Entitic mass] 30.4 pg 27.0-32.0 [facility] Work Phone: Nucleated RBC/100 WBC (Bld) [Ratio] 0 % 0-5 [facility] Work Phone: MCHC Auto (RBC) [Mass/Vol]on 05-29-2022 MCHC (RBC) [Mass/Vol] 33.1 g/dL 32-36 [facility] Work Phone: No Panel Informationon 05-29 Estimated Creatinine Clearance Calc 99.56 ml/min [facility] Work Phone: Estimated GFR (MDRD) Amer 92 mL/min >60 [facility] Work Phone: Comment on above: GFR Calc Estimated GFR (MDRD) Non-Af Amer 76 mL/min >60 [facility] Work Phone: Comment on above: Non- GFR Calc Ethyl Alcohol Level < 3.0 mg/dL [facility] Work Phone: Comment on above: The serum:whole bloo d ethanol ratio is approximately 1.14and varies slightly with hematocrit. Medical Alcohol reference interval and critical value innon-tolerant individuals; 50 - 100 Impairment 100 Intoxication 100 - 250 Severe Poisoning 250 - 400 Deep/possible fatal coma MDMA (Ecstasy) Screen Negative < 500 ng/mL [facility] Work Phone: Urine Barbiturates Screen Negative < 200 ng/mL [facility] Work Phone: Urine Drug Screen Comment [facility] Work Phone: Comment on above: CONFIRMATORY [...] Urine Methadone Screen Negative < 300 ng/mL [facility] Work Phone: [phone] Platelets bldon 05-29-2022 Platelets (Bld) [#/Vol] 336 10*3/uL 150-450 [facility] Work Phone: [phone] Serum or plasma albumin mauro urement (mass/volume)on 05-29-2022 Albumin [Mass/Vol] 4.0 g/dL 3.2-5.0 [facility] Work Phone: [phone] Serum or plasma albumin/glob ulin mass ratioon 05-29-2022 Albumin/Globulin [Mass ratio] 1.1 {ratio} 0.9-2.4 [facility] Work Phone: [phone] Serum or plasma calcium mauro urement (mass/volume)on 05-29-2022 Calcium [Mass/Vol] 9.1 mg/dL 8.5-10.1 [facility] Work Phone: [phone] Serum or plasma creatinine m easurement (mass/volume)on 05-29-2022 Creatinine [Mass/Vol] 1.18 mg/dL 0.70-1.30 [facility] Work Phone: Comment on above: The validity of the calculated GFR & GFRAA in patients over 70 years has not been determined. Clinical correlation is essential. Serum or plasma urea nitroge n measurement (mass/volume)on 05-29-2022 Urea nitrogen [Mass/Vol] 14 mg/dL 7-18 [facility] Work Phone: Thin prep Papanicolaou smear with manual screeningon 05-29-2022 Thin prep Papanicolaou smear with manual screening 17 U/L 15-37 [facility] Work Phone: [phone] Thin prep Papanicolaou smear with manual screening 6 5-15 [facility] Work Phone: [phone] Urine phencyclidine (PCP) de tectionon 05-29-2022 Phencyclidine Ql (U) Negative < 25 ng/mL [facility] Work Phone: Absolute lymphocyte counton 01-30-2022 Lymphocytes Auto (Unsp spec) [#/Vol] 0.87 10*3/uL 0.83-4.51 [facility] Work Phone: Basophil percentageon 2021 Basophils/100 WBC (Bld) 0.2 % 0-1 [facility] Work Phone: Chloride [Moles/Vol] 106 mmol/L 98-107 [facility] Work [facility]: Eosinophils/100 WBC (Bld) 0.1 % 0-5 [facility] Work Phone: Glucose [Mass/Vol] 109 mg/dL 74-106 [facility] Work Phone: Comment on above: Fasting Glucose resu lt from 100 to 125 mg/dL suggests IMPAIRED HOMEOSTASIS per A.D.A. criteria. Neutrophils (Bld) [#/Vol] 10.6 10*3/uL 2.0-7.7 [facility] Work Phone: Neutrophils/100 WBC (Bld) 89.3 % 47-70 [facility] Work Phone: Potassium [Moles/Vol] 3.6 mmol/L 3.5-5.1 [facility] Work Phone: Sodium [Moles/Vol] 137 mmol/L 136-145 [facility] Work Phone: WBC (Bld) [#/Vol] 11.8 10*3/uL 4.4-11.0 [facility] Work Phone: Blood erythrocytes count (nu mber/volume)on 01-30-2022 RBC (Bld) [#/Vol] 5.28 10*6/uL 4.6-6.2 [facility] Work Phone: Blood hemoglobin measurement (mass/volume)on 01-30-2022 Hemoglobin (Bld) [Mass/Vol] 15.7 g/dL 13.0-16. 5 [facility] Work Phone: Blood lymphocytes/100 leukoc yteson 01-30-2022 Lymphocytes/100 WBC (Bld) 7.3 % 19-41 [facility] Work Phone: Blood manual differential co mment interpretation (narrative result)on 01-30-2022 Manual differential comment Bebeto (Bld) [Interp] See comment [facility] Work Phone: Comment on above: AUTO DIFF [place] Blood monocytes/100 leukocyt eson 01-30-2022 Monocytes/100 WBC (Bld) 2.7 % 0-10 [facility] Work Phone: Blood platelet mean volumeon 01-30-2022 Platelet mean volume (Bld) [Entitic vol] 9.9 fL 6.2-12.0 [facility] Work Phone: Determination of erythrocyte mean corpuscular volume (MCV)on 01-30-2022 MCV (RBC) [Entitic vol] 94.3 fL 80-94 [facility] Work Phone: Hematocrit Auto (Bld) [Volum e fraction]on 01-30-2022 Hematocrit (Bld) [Volume fraction] 49.8 % 40-54 [facility] Work Phone: Laboratory - Chemistry and C hemistry - challengeon 01-30-2022 CO2 [Moles/Vol] 20.0 mmol/L 21.0-32.0 [facility] Work Phone: Urea nitrogen/Creatinine [Mass ratio] 7.0 mg/mg 10-20 [facility] Work Phone: Laboratory - Hematology and Cell countson 01-30-2022 Erythrocyte distribution width (RBC) [Entitic vol] 42.8 fL 35.1-43.9 [facility] Work Phone: Erythrocyte distribution width (RBC) [Ratio] 12.4 % 11.6-14.6 [facility] Work Phone: Immature granulocytes/100 WBC (Bld) 0.400 % 0.0-0.9 [facility] Work Phone: Comment on above: IG% - Immature Granu locytes (promyelocytes, myelocytes and metamyelocytes) > 1% indicates that a LEFT SHIFT is Present. MCH (RBC) [Entitic mass] 29.7 pg 27.0-32.0 [facility] Work Phone: Nucleated RBC/100 WBC (Bld) [Ratio] 0 % 0-5 [facility] Work Phone: MCHC Auto (RBC) [Mass/Vol]on 01-30-2022 MCHC (RBC) [Mass/Vol] 31.5 g/dL 32-36 [facility] Work Phone: No Panel Informationon 01-30 Estimated Creatinine Clearance Calc 102.15 ml/min [facility] Work Phone: Estimated GFR (MDRD) Amer 95 mL/min >60 [facility] Work Phone: Comment on above: GFR Calc Estimated GFR (MDRD) Non-Af Amer 79 mL/min >60 [facility] Work Phone: Comment on above: Non- GFR Calc Platelets bldon 01-30-2022 Platelets (Bld) [#/Vol] 345 10*3/uL 150-450 [facility] Work Phone: Serum or plasma calcium mauro urement (mass/volume)on 01-30-2022 Calcium [Mass/Vol] 9.2 mg/dL 8.5-10.1 [facility] Work Phone: Serum or plasma creatinine m easurement (mass/volume)on 01-30-2022 Creatinine [Mass/Vol] 1.15 mg/dL 0.70-1.30 [facility] Work Phone: Comment on above: The validity of the calculated GFR & GFRAA in patients over 70 years has not been determined. Clinical correlation is essential. Serum or plasma urea nitroge n measurement (mass/volume)on 01-30-2022 Urea nitrogen [Mass/Vol] 8 mg/dL 7-18 [facility] Work Phone: Thin prep Papanicolaou smear with manual screeningon 01-30-2022 Thin prep Papanicolaou smear with manual screening 11 5-15 [facility] Work [phone] Absolute lymphocyte counton 12-31-2021 Lymphocytes Auto (Unsp spec) [#/Vol] 2.55 10*3/uL 0.83-4.51 [facility] Work Phone: [phone] Basophil percentageon 2021 Basophils/100 WBC (Bld) 0.1 % 0-1 [facility] Work Phone: Bilirubin [Mass/Vol] 0.90 mg/dL 0.20-1.00 [facility] Work Phone: [phone] Comment on above: For patients on eltr ombopag therapy, use of Dim[place] TBIL is not recommended. Chloride [Moles/Vol] 100 mmol/L 98-107 [facility] Work Phone: [phone] Eosinophils/100 WBC (Bld) 0.0 % 0-5 [facility] Work Phone: Glucose [Mass/Vol] 137 mg/dL 74-106 [facility] Work Phone: [phone] Comment on above: Fasting Glucose resu lt greater than or equal to 126 mg/dL suggests DIABETES MELLITUS per A.D.A. criteria. Neutrophils (Bld) [#/Vol] 15.3 10*3/uL 2.0-7.7 [facility] Work [phone] Neutrophils/100 WBC (Bld) 77.9 % 47-70 [facility] Work Phone: Potassium [Moles/Vol] 3.1 mmol/L 3.5-5.1 [facility] Work Phone: Protein [Mass/Vol] 7.2 g/dL 6.4-8.2 [facility] Work Phone: Sodium [Moles/Vol] 139 mmol/L 136-145 [facility] Work [phone] WBC (Bld) [#/Vol] 19.7 10*3/uL 4.4-11.0 [facility] Work Phone: Blood erythrocytes count (nu mber/volume)on 12-31-2021 RBC (Bld) [#/Vol] 4.94 10*6/uL 4.6-6.2 [facility] Work Phone: [phone] Blood hemoglobin measurement (mass/volume)on 12-31-2021 Hemoglobin (Bld) [Mass/Vol] 14.9 g/dL 13.0-16. 5 [facility] Work Phone: [phone] Blood lymphocytes/100 leukoc yteson 12-31-2021 Lymphocytes/100 WBC (Bld) 13.0 % 19-41 [facility] Work Phone: [phone] Blood manual differential co mment interpretation (narrative result)on 12-31-2021 Manual differential comment Bebeto (Bld) [Interp] SCANNED [facility] Work Phone: Blood monocytes/100 leukocyt eson 12-31-2021 Monocytes/100 WBC (Bld) 8.6 % 0-10 [facility] Work Phone: [phone] Blood platelet adequacy dete ction by light microscopyon 12-31-2021 Platelets LM Ql (Bld) ADEQUATE ADEQ [facility] Work Phone: [phone] Blood platelet mean volumeon 12-31-2021 Platelet mean volume (Bld) [Entitic vol] 9.4 fL 6.2-12.0 [facility] Work Phone: Determination of erythrocyte mean corpuscular volume (MCV)on 12-31-2021 MCV (RBC) [Entitic vol] 90.1 fL 80-94 [facility] Work Phone: [phone] Hematocrit Auto (Bld) [Volum e fraction]on 12-31-2021 Hematocrit (Bld) [Volume fraction] 44.5 % 40-54 [facility] Work Phone: [phone] Laboratory - Chemistry and C hemistry - challengeon 12-31-2021 ALP [Catalytic activity/Vol] 103 U/L 45-117 [facility] Work Phone: [phone] ALT [Catalytic activity/Vol] 21 U/L 16-61 [facility] Work Phone: CO2 [Moles/Vol] 30.0 mmol/L 21.0-32.0 [facility] Work Phone: Globulin (S) [Mass/Vol] 3.1 g/dL 2.2-4.2 [facility] Work Phone: Urea nitrogen/Creatinine [Mass ratio] 7.6 mg/mg 10-20 [facility] Work Phone: Laboratory - Hematology and Cell countson 12-31-2021 Erythrocyte distribution width (RBC) [Entitic vol] 40.7 fL 35.1-43.9 [facility] Work Phone: Erythrocyte distribution width (RBC) [Ratio] 12.4 % 11.6-14.6 [facility] Work Phone: Immature granulocytes/100 WBC (Bld) 0.400 % 0.0-0.9 [facility] Work Phone: Comment on above: IG% - Immature Granu locytes (promyelocytes, myelocytes and metamyelocytes) > 1% indicates that a LEFT SHIFT is Present. MCH (RBC) [Entitic mass] 30.2 pg 27.0-32.0 [facility] Work Phone: Nucleated RBC/100 WBC (Bld) [Ratio] 0 % 0-5 [facility] Work Phone: MCHC Auto (RBC) [Mass/Vol]on 12-31-2021 MCHC (RBC) [Mass/Vol] 33.5 g/dL 32-36 [facility] Work Phone: No Panel Informationon 12-31 Estimated Creatinine Clearance Calc 89.68 ml/min [facility] Work Phone: Estimated GFR (MDRD) Amer 82 mL/min >60 [facility] Work Phone: Comment on above: GFR Calc Estimated GFR (MDRD) Non-Af Amer 68 mL/min >60 [facility] Work Phone: Comment on above: Non- GFR Calc Platelets bldon 12-31-2021 Platelets (Bld) [#/Vol] 374 10*3/uL 150-450 [facility] Work Phone: Review by pathologiston 12-04 Pathologist review Bebeto (Unsp spec) [Interp] December yuliana [facility] Work Phone: Pathologist review Bebeto (Unsp spec) [Interp] Reviewed [facility] Work Phone: Comment on above: Previous reported re sult: Lu bridges Edited by: RGOOD on 01/01/22:1152Neutrophilic leukocytosis.Clinical correlation suggested.Sb Varma D.O. 01/01/22 AMENDED REPORT 01/01/22 1152 PATH REV previously reported as: December yuliana Serum or plasma albumin mauro urement (mass/volume)on 12-31-2021 Albumin [Mass/Vol] 4.1 g/dL 3.2-5.0 [facility] Work Phone: Serum or plasma albumin/glob ulin mass ratioon 12-31-2021 Albumin/Globulin [Mass ratio] 1.3 {ratio} 0.9-2.4 [facility] Work Phone: Serum or plasma calcium mauro urement (mass/volume)on 12-31-2021 Calcium [Mass/Vol] 8.8 mg/dL 8.5-10.1 [facility] Work Phone: Serum or plasma creatinine m easurement (mass/volume)on 12-31-2021 Creatinine [Mass/Vol] 1.31 mg/dL 0.70-1.30 [facility] Work Phone: Comment on above: The validity of the calculated GFR & GFRAA in patients over 70 years has not been determined. Clinical correlation is essential. Serum or plasma urea nitroge n measurement (mass/volume)on 12-31-2021 Urea nitrogen [Mass/Vol] 10 mg/dL 7-18 [facility] Work Phone: Thin prep Papanicolaou smear with manual screeningon 12-31-2021 Thin prep Papanicolaou smear with manual screening 12 U/L 15-37 [facility] Work Phone: Thin prep Papanicolaou smear with manual screening 9 5-15 [facility] Work Phone: No Panel Informationon 12-27 Enteric Bacteriology [facility] Work Phone: Gram stain for investigation of transfusion reactionon 12-17-2021 Microscopic observation Gram stain Nom (Unsp spec) [facility] Work Phone: No Panel Informationon 12-17 Nasopharyngeal Culture Pseudomonas aeroginosa [facility] Work Phone: TSCon 06-04-2018 [facility] DATE OF SERVICE: 06/04/2018Patient is a 27-year-old [...] afebrile, and appropriate for outpatientmanagement._ Abraham Aguilar, [facility]/[id number]: 06/04/2018 10:57 [facility] PATIENT NAME: AIMEE DUCKWORTH C132Yehuda Radha Trinh MEDICAL REC #: [id number], [place] [address] STATCARE REPORT STATCARE PHYSICIANDT: 06/05/2018 09:29SSI File#: [id number] #: [id number] d by06/05/18 1018 ANGEL [facility] PATIENT NAME: AIMEE DUCKWORTH [id number] Radha Trinh [facility] REC #: [id number], [place] [address] STATCARE REPORT [facility] PHYSICIAN [facility] CASSANDRA STATCARE REPORT [facility] Marilin 07-17-2017 GI -- ----Patient: AIMEE DUCKWORTH C ----SPECIMEN: [id number] Collection Date: 07/17/17-1011 Received: 07/22/17 Status: ERIC Nesbitt DrCheryl: Ashtyn Moreira MD Ph# Othr. Dr.: Hailey Jarquin NP Material for Examination: A ESOPHAGEAL BX @ 39 CM, R/O PONCE'S PRE-OP DIAGNOSIS: ULCER OF ESOPHAGUS POST-OP DIAGNOSIS: NONE GIVEN SURGICAL PROCEDURE: NONE GIVEN SPECIMEN COMMENTS: RECEIVED FROM [facility], [address] [place] [address] 2 Jan SLIDES LABELED [id number] AIMEE DUCKWORTH L1,[id number] A. Esophagus, at 39 cm; multiple biopsies: [...] Phonetic and/or minor grammatical errors may exist. 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 ROOM/BED: [employer] [facility] : 89 AGE/SEX: 26/M ORD.Ashtyn Mitchell MD END OF REPORT Normal [facility] [place] Gram stain for investigation of transfusion reaction Microscopic observation Gram stain Nom (Unsp spec) [facility] Work Phone: No Panel Information Nasopharyngeal Culture Pseudomonas aeroginosa [facility] Work Phone: Vital Signs Date Time Vital Sign Value Performing Clinician Faci lity 04-22-2025 11:54-0400 Body temperature 98.1 [degF] Dr. Kamron Erickson MD Work Phone: [facility] 04-22-2025 11:54-0400 Diastolic blood pressure 94 mm[Hg] Dr. Kamron Erickson MD Work Phone: [facility] 04-22-2025 11:54-0400 Heart rate 68 /min Dr. Kamron Erickson MD Work Phone: [facility] 04-22-2025 11:54-0400 Respiratory rate 16 /min Dr. Kamron Erickson MD Work Phone: [facility] 04-22-2025 11:54-0400 SaO2% (BldA) [Mass fraction] 97 % Dr. Kamron Erickson MD Work Phone: [facility] 04-22-2025 11:54-0400 Systolic blood pressure 152 mm[Hg] Dr. Kamron Erickson MD Work Phone: [facility] 04-22-2025 07:38-0400 Body height 182.[address] Kamron Erickson MD Work Phone: [facility] 04-22-2025 07:38-0400 Body mass index (BMI) [Ratio] 35.2 kg/m2 Dr. Kamron Erickson MD Work Phone: 2(520)156-954435 [place] [address] 04-22-2025 07:38-0400 Body weight [address] Kamron Erickson MD Work Phone: 7(952)182-719814 [place] [address] 04-21-2025 03:26-0400 Body temperature 99 [degF] Dr. Kamron Erickson MD Work Phone: 9(160)468-063314 [place] [address] 04-21-2025 03:26-0400 Diastolic blood pressure 97 mm[Hg] Dr. Kamron Erickson MD Work Phone: 9(183)633-776614 [place] [address] 04-21-2025 03:26-0400 Heart rate 102 /min Dr. Kamron Erickson MD Work Phone: 4(820)926-674414 [place] [address] 04-21-2025 03:26-0400 Respiratory rate 16 /min Dr. Kamron Erickson MD Work Phone: 5(839)925-853367 [address] 04-21-2025 03:26-0400 SaO2% (BldA) [Mass fraction] 97 % Dr. Kamron Erickson MD Work Phone: 6(137)556-698535 [place] [address] 04-21-2025 03:26-0400 Systolic blood pressure 145 mm[Hg] Dr. Kamron Erickson MD Work Phone: [facility] 04-21-2025 02:04-0400 Body height 182.[address] Kamron Erickson MD Work Phone: 8(227)719-969867 [address] 04-21-2025 02:04-0400 Body mass index (BMI) [Ratio] 35.6 kg/m2 Dr. Kamron Erickson MD Work Phone: [facility] 04-21-2025 02:04-0400 Body weight 119.[address] Kamron Erikcson MD Work Phone: 1(202)145-694235 [place] [address] 11-03-2024 23:54-0400 Heart rate 68 /min Dr. Kamron Erickson MD Work Phone: [facility] 11-03-2024 23:54-0400 Respiratory rate 18 /min Dr. Kamron Erickson MD Work Phone: [facility] 11-03-2024 23:54-0400 SaO2% (BldA) [Mass fraction] 94 % Dr. Kamron Erickson MD Work Phone: 7(340)261-647235 [place] [address] 11-03-2024 21:30-0400 Body temperature 97.7 [degF] Dr. Kamron Erikcson MD Work Phone: 3(132)185-035035 [place] [address] 11-03-2024 21:30-0400 Diastolic blood pressure 91 mm[Hg] Dr. Kamron Erickson MD Work Phone: 1(910)059-329667 [address] 11-03-2024 21:30-0400 Systolic blood pressure 109 mm[Hg] Dr. Kamron Erickson MD Work Phone: 4(185)177-151335 [place] [address] 11-03-2024 09:24-0400 Body height 182.[address] Kamron Erickson MD Work Phone: 5(391)519-511914 [place] [address] 11-03-2024 09:24-0400 Body weight 131.[address] Kamron Erickson MD Work Phone: 4(551)727-385235 [place] [address] 11-03-2024 07:00-0400 Inhaled oxygen flow rate 2 L/min Dr. Kamron Erickson MD Work Phone: [facility] 11-03-2024 06:00-0400 Body mass index (BMI) [Ratio] 39.1 kg/m2 Dr. Kamron Erickson MD Work Phone: 0(723)879-558935 [place] [address] 11-02-2024 13:38-0400 Body temperature 97.7 [degF] Dr. Kamron Erickson MD Work Phone: [facility] 11-02-2024 13:38-0400 Diastolic blood pressure 78 mm[Hg] Dr. Kamron Erickson MD Work Phone: [facility] 11-02-2024 13:38-0400 Heart rate 87 /min Dr. Kamron Erickson MD Work Phone: 7(577)101-614635 [place] [address] 11-02-2024 13:38-0400 Respiratory rate 16 /min Dr. Kamron Erickson MD Work Phone: 8(435)024-018414 [place] [address] 11-02-2024 13:38-0400 SaO2% (BldA) [Mass fraction] 98 % Dr. Kamron Erickson MD Work Phone: 0(310)079-763214 [place] [address] 11-02-2024 13:38-0400 Systolic blood pressure 107 mm[Hg] Dr. Kamron Erickson MD Work Phone: 0(970)363-646214 [place] [address] 11-02-2024 11:24-0400 Body height 182.[address] Kamron Erickson MD Work Phone: 0(991)433-827514 [place] [address] 11-02-2024 11:24-0400 Body mass index (BMI) [Ratio] 39.2 kg/m2 Dr. Kamron Erickson MD Work Phone: 2(564)402-486614 [place] [address] 11-02-2024 11:24-0400 Body weight [address] Kamron Erickson MD Work Phone: 9(921)935-060514 [place] [address] 08-04-2024 08:51-0500 Body temperature 97.9 [degF] Dr. Kamron Erickson MD Work Phone: 4(148)036-272114 [place] [address] 08-04-2024 08:51-0500 Diastolic blood pressure 81 mm[Hg] Dr. Kamron Erickson MD Work Phone: 5(473)342-147214 [place] [address] 08-04-2024 08:51-0500 Heart rate 74 /min Dr. Kamron Erickson MD Work Phone: 6(376)384-014214 [place] [address] 08-04-2024 08:51-0500 Respiratory rate 16 /min Dr. Kamron Erickson MD Work Phone: 8(673)208-395314 [place] [address] 08-04-2024 08:51-0500 SaO2% (BldA) [Mass fraction] 97 % Dr. Kamron Erickson MD Work Phone: 3(207)192-833814 [place] [address] 08-04-2024 08:51-0500 Systolic blood pressure 124 mm[Hg] Dr. Kamron Erickson MD Work Phone: [facility] 08-03-2024 12:44-0500 Body mass index (BMI) [Ratio] 34.2 kg/m2 Dr. Kamron Erickson MD Work Phone: [facility] 08-03-2024 12:44-0500 Body weight 114.[address] Kamron Erickson MD Work Phone: [facility] 04-13-2023 07:01-0400 Diastolic blood pressure 59 mm[Hg] [facility] 04-13-2023 07:01-0400 Heart rate 66 /min [facility] 04-13-2023 07:01-0400 Respiratory rate 15 /min [facility] 04-13-2023 07:01-0400 SaO2% (BldA) [Mass fraction] 100 % [facility] 04-13-2023 07:01-0400 Systolic blood pressure 104 mm[Hg] [facility] 04-13-2023 04:07-0400 Body height 182.88 cm [facility] 04-13-2023 04:07-0400 Body mass index (BMI) [Ratio] 36.1 kg/m2 [facility] 04-13-2023 04:07-0400 Body temperature 97.6 [degF] [facility] 04-13-2023 04:07-0400 Body weight 121 kg [facility] 05-30-2022 08:38-0400 Diastolic blood pressure 81 mm[Hg] [facility] Work Phone: 05-30-2022 08:38-0400 Heart rate 90 /min [facility] Work Phone: 05-30-2022 08:38-0400 Respiratory rate 15 /min [facility] Work Phone: 05-30-2022 08:38-0400 SaO2% (BldA) [Mass fraction] 100 % [facility] Work Phone: 05-30-2022 08:38-0400 Systolic blood pressure 138 mm[Hg] [facility] Work Phone: 05-30-2022 06:18-0400 Body temperature 97.9 [degF] [facility] Work Phone: 05-29-2022 20:56-0400 Body height 182.88 cm [facility] Work Phone: 05-29-2022 20:56-0400 Body mass index (BMI) [Ratio] 33 kg/m2 [facility] Work Phone: 05-29-2022 20:56-0400 Body weight 110.6 kg [facility] Work Phone: 01-30-2022 14:47-0400 Body height 182.88 cm [facility] Work Phone: 01-30-2022 14:47-0400 Body mass index (BMI) [Ratio] 32.4 kg/m2 [facility] Work Phone: 01-30-2022 14:47-0400 Body temperature 97 [degF] [facility] Work Phone: 01-30-2022 14:47-0400 Body weight 108.47 kg [facility] Work Phone: 01-30-2022 14:47-0400 Diastolic blood pressure 102 mm[Hg] [facility] Work Phone: 01-30-2022 14:47-0400 Heart rate 124 /min [facility] Work Phone: 01-30-2022 14:47-0400 Respiratory rate 16 /min [facility] Work Phone: 01-30-2022 14:47-0400 SaO2% (BldA) [Mass fraction] 98 % [facility] Work Phone: 01-30-2022 14:47-0400 Systolic blood pressure 130 mm[Hg] [facility] Work Phone: 12-31-2021 04:11-0400 Diastolic blood pressure 90 mm[Hg] [facility] Work Phone: 12-31-2021 04:11-0400 Heart rate 82 /min [facility] Work Phone: 12-31-2021 04:11-0400 Respiratory rate 20 /min [facility] Work Phone: 12-31-2021 04:11-0400 SaO2% (BldA) [Mass fraction] 94 % [facility] Work Phone: 12-31-2021 04:11-0400 Systolic blood pressure 137 mm[Hg] [facility] Work Phone: 12-31-2021 01:56-0400 Body height 182.88 cm [facility] Work Phone: 12-31-2021 01:56-0400 Body mass index (BMI) [Ratio] 34 kg/m2 [facility] Work Phone: 12-31-2021 01:56-0400 Body temperature 98.9 [degF] [facility] Work Phone: 12-31-2021 01:56-0400 Body weight 113.7 kg [facility] Work Phone: Encounters Encounter Date Encounter Type Care Provider Facility Start: 05-31-2025 End: 06-01-2025 ambulatory Ren Boggs Facility:[facility] Start: 05-30-2025 End: 05-30-2025 Emergency department patient visit Kamron Erickson Facility:[facility] Start: 04-22-2025 End: 04-22-2025 Emergency department patient visit Dr. Rodriguez Beavers DO -Emergency Department Work Phone: Start: 04-21-2025 End: 04-21-2025 Emergency department patient visit Dr. Kamron Erickson MD Work Phone: -Emergency Department Work Phone: Start: 11-03-2024 Non-patient / Non-visit Dr. Román martinez MD -[facility] Work Phone: Start: 11-02-2024 Non-patient / Non-visit Dr. Román martinez MD -[facility] Work Phone: Start: 11-02-2024 ambulatory Román Sandoval Facility:[facility] Start: 11-02-2024 End: 11-04-2024 Evaluation and management of inpatient Dr. Román Sandoval MD -Intensive Care Unit Work Phone: Start: 08-03-2024 End: 08-04-2024 Emergency department patient visit Dr. Rodriguez Beavers DO -Emergency Department Work Phone: Start: 05-06-2023 End: 05-07-2023 Emergency department patient visit [facility] Start: 04-13-2023 End: 04-13-2023 Emergency department patient visit [facility]-Emergency Department Work Phone: Start: 05-29-2022 End: 05-30-2022 Emergency department patient visit [facility]-Emergency Department Start: 01-30-2022 End: 01-30-2022 Emergency department patient visit [facility]-Emergency Department Start: 12-31-2021 End: 12-31-2021 Emergency department patient visit [facility]-Emergency Department Start: 12-27-2021 End: 12-27-2021 Patient encounter procedure [facility]-Laboratory, Specimen Start: 12-17-2021 End: 12-17-2021 Patient encounter procedure [facility], [place] [facility] Start: 06-04-2018 Patient encounter procedure Abraham Aguilar Facility:[facility] Start: 07-17-2017 Patient encounter procedure Ashtyn Moreira Facility:[facility] Procedures Date Procedure Procedure Detail Performing [...] Date Care Activity Detail Author Start: 04-22-2025 [facility] Start: 04-21-2025 [facility] Start: 11-03-2024 Care planning and problem solving actions [facility] Start: 11-03-[address] [facility] Start: 11-03-2024 Serum inorganic phosphate measurement [facility] Start: 11-03-2024 Patient discharge [facility] Start: 11-02-2024 Suicide precautions [facility] Start: 11-02-2024 Following clinical pathway protocol [facility] Start: 11-02-2024 Ambulation without limitation [facility] Start: 11-02-2024 Assessment of risk of venous thromboembolism [facility] Start: 11-02-2024 Continuous pulse oximetry [facility] Start: 11-02-2024 Inhalation therapy procedure [facility] Start: 11-02-2024 Insertion of catheter into peripheral vein [facility] Start: 11-02-2024 Measuring intake and output [facility] Start: 11-02-2024 Oxygen therapy [facility] Start: 11-02-2024 Providing care according to standard [facility] Start: 11-02-2024 Vital signs measurements [facility] Start: 11-02-2024 [facility] Start: 11-02-2024 Verification routine [facility] Start: 11-02-2024 Admission procedure [facility] Start: 11-02-2024 Seizure precautions [facility] Start: 11-02-2024 Referral to service [facility] Start: 11-02-2024 End: 11-02-2024 Suicide precautions [facility] Start: 11-02-2024 Consultation [facility] Start: 08-03-2024 [facility] Start: 08-03-2024 Suicide precautions [facility] Start: 01-30-2022 Plain chest X-ray Chest 1 View (Portable) [facility] Work Phone: Start: 01-30-2022 XR Chest Single view [facility] Work Phone: Start: 01-30-2022 End: 01-30-2022 [facility] Work Phone: Start: 12-27-2021 Ova and Parasites Ova and Parasites [facility] Work Phone: Start: 12-17-2021 Nasopharyngeal Culture Nasopharyngeal Culture [facility] Work Phone: Alanine aminotransfe rase [Enzymatic activity/volume] in Serum or Plasma [facility] Albumin [Mass/volume ] in Serum or Plasma [facility] Alkaline phosphatase [Enzymatic activity/volume] in Serum or Plasma [facility] Amphetamines [Presen ce] in Urine by Screen method >1000 ng/mL [facility] Anion gap in Serum or Plasma [facility] Benzodiazepine measu rement, urine [facility] Bilirubin, total measurement [facility] BUN/Creatinine ratio [facility] Calcium [Mass/volume ] in Serum or Plasma [facility] Carbon dioxide, tota l [Moles/volume] in Central venous blood [facility] Cocaine measurement, urine [facility] Creatinine [Mass/vol ume] in Serum or Plasma [facility] Erythrocyte mean cor puscular volume determination [facility] fentaNYL [Presence] in Urine by Screen method [facility] Glucose [Mass/volume ] in Serum or Plasma [facility] Hematocrit [Volume F raction] of Blood [facility] Hemoglobin [Mass/vol ume] in Blood [facility] Leukocytes [#/volume] in Blood [facility] Magnesium measurement [facility] Mean corpuscular hem oglobin concentration determination [facility] Mean corpuscular hem oglobin determination [facility] Measurement of renal function [facility] Methadone measurement, urine [facility] Neutrophil count [facility] Neutrophil percent differential count [facility] Patient Education [facility] Work Phone: Patient referral [facility] Work Phone: Phencyclidine [Prese nce] in Urine [facility] Platelets [#/volume] in Blood [facility] Potassium measurement [facility] Red blood cell count [facility] Red cell distributio n width determination [facility] Serum chloride measurement [facility] Sodium measurement [facility] Total protein measurement [facility] Urea nitrogen [Mass/ volume] in Serum or Plasma [facility] Urine cannabinoid measurement [facility] Urine opiate measurement [facility] Payers Date Payer Category Payer Self-pay [id number] 2020 Medicaid [id number] 2020 Medicare [id number] 2016 Unknown [id number] 2007 Unknown [id number] 1990 Unknown [id number] 2.16. [id number] Unknown [id number] 2.16.8 [id number] Unknown [id number] 2.16.8 [id number] Unknown [id number] 2.16.8 [id number] Unknown [id number] 2.16.8 [id number] Unknown [id number] 2.16.8 [id number] Unknown [id number] 2.16.8 [id number] Unknown [id number] 2.16.8 [id number] Unknown [id number] 2.16.8 [id number] Unknown [id number] 2.16.8 [id number] Unknown [id number] 2.16.8 [id number] Unknown [id number] [id number] Unknown [id number] 2.16.8 [id number] Unknown [id number] 2.16.8 [id number] Social History Date Type Detail Facility Start: 12-04-2018 End: 04-13-2023 Tobacco smoking status MDIS Unknown if ever smoked [facility] Start: 1990 Sex Assigned At Male [facility] Start: 11-02-2024 End: 04-22-2025 Tobacco smoking status NHIS Smokes tobacco daily (finding) [facility] Start: 11-02-2024 End: 11-04-2024 Sex Male (finding) [facility] Sex Male [facility] Goals Date Patient Goal Desired Activity /State Functional Status Date Assessment Result Facility 11-03-2024 Functional status Ambulates;Bedside Commo de [facility] Work Phone: Mental Status Date Assessment Result Facility 11-03-2024 Cognitive function Voice/Name [facility] Work Phone: Clinical Notes 04-13-2023 to 06-01-2025 Note Date & Type Note Facility 06-01-2025 Note [facility] Medical Records Department [address] [place] [address] Discharge Summary 06/01/25 1305 MR#: [id number] Acct: [id number] Name: AIMEE DUCKWORTH Rep #: [id number] : 1990 34 From: Cleveland Guardado MD PCP: Dr. Kamron Erickson MD Status:DIS VELVET Location: MS3 GE909-5 Providers Date of Admission: 05/31/25 Primary Care [...] (Auto) 68.0, L (more content not included)... [facility] 05-31-2025 Note [facility] Medical Records Department [address] [place] [address] History Physical Exam 05/31/25 0351 MR#: [id number] Acct: [id number] Name: AIMEE DUCKWORTH Rep #: [id number] : 1990 34 From: Ren Boggs MD [...] observation with IV hydration and antiemetic medication. [facility] Medical History Spinal stenosis Schizophrenia Depression Anxiety Smoker Schizophrenia Migraines Asthma Home Medications ???Medication ???Instructions ???Recorded ???Last Taken ???Type divalproex 500 mg tablet,delayed 1,000 mg PO BID 06/02/24 11/02/24 History release albuterol sulfate 90 mcg/actuation 1 - 2 puff inhalation Q4H PRN [facility] 11/02/24 Unknown History aerosol inhaler escitalopram oxalate [...] Neuro no focal (more content not included)... [facility] 04-22-2025 Discharge summary [facility] 04-21-2025 Discharge summary [facility] 04-21-2025 Radiology Diagnostic study note [facility] Imaging Services [address] [place], [place] [address] Abdomen/Pelvis W IV Cont ONLY MR#: [id number] Acct: [id number] Name: AIMEE DUCKWORTH Rep #: [id number] : 1990 M 34 From: Blessing Weir MD PCP: Dr. Kamron Erickson MD Status: [facility] ER Study:Abdomen/Pelvis W IV Cont ONLY Date of E xam: 04/21/25 Exam# [id number] Ordering Dr: Violet York DO PROCEDURE: ABDOMEN/PELVIS [...] pneumatosis coli. Mild diffuse spondylosis. Reading Location: [place] [address] CC: Dr. Kamron Erickson MD; DO Zarina Ugalde [employer] Sales Marketing: Signed [facility] 04-21-2025 Hospital Discharge instructions Additional Instructions [...] ER should you have any further concerns [facility] Work Phone: 11-04-2024 Note [facility] Medical Records Department [address] [place] [address] Discharge Summary 11/04/24 0829 MR#: [id number] Acct: [id number] Name: AIMEE DUCKWORTH Rep #: [id number] : 1990 34 From: Román Sandoval MD PCP: Dr. Kamron Erickson MD Status:DIS IN Location: [facility] IJ699-3 Providers Date of Admission: 11/02/24 Date of [...] 234 mg IM (more content not included)... [facility] 11-03-2024 Progress note Note Date/Time November 03, 2024 8:00am [facility] Medical Records Department [address] [place] [address] Progress Note - Hospitalist 11/03/24 0715 MR#: [id number] Acct: [id number] Name: AIMEE DUCKWORTH Rep #:[id number] : [...] % (Auto) 54.1, Lymph % (Auto) 24.9, [place] % (Auto) 18.0 H, Eos % (Auto) [...] % (Auto) 63.5, Lymph % (Auto) 19.2, [place] % (Auto) 16.0 H, Eos % (Auto) [...] Minutes A Charges/Coding Visit Charges Inpatient E&M: 83026 Subs Hosp L2 11/03/24 0800 <Electronically signed by Román Sandoval MD> Cosigner Signature (if applicable): CC: ~ Signed [facility] Work Phone: 1(627) 696-397204-02-2025 Progress note [facility] Medical Records Department [address] [place] [address] Progress Note - Hospitalist 11/03/24 0715 MR#: [id number] Acct: [id number] Name: AIMEE DUCKWORTH Rep #:[id number] : 1990 34 From: Román Sandoval MD PCP: Dr. Kamron Erickson MD Status:ADM IN [facility] Reason for Visit Reason for Visit: [...] % (Auto) 54.1, Lymph % (Auto) 24.9, [place] % (Auto) 18.0 H, Eos % (Auto) [...] % (Auto) 63.5, Lymph % (Auto) 19.2, [place] % (Auto) 16.0 H, Eos % (Auto) [...] Minutes A Charges/Coding Visit Charges Inpatient E&M: 04035 Subs Hosp L2 11/03/24 0800 Cosigner Signature (if applicable): CC: ~ Signed [facility]04-01-2025 History and physical note Author Román Sandoval [facility] Note Date/Time November 02, 2024 1:11 pm [facility] Medical Records Department [address] [place] [address] H&P Exam - Hospitalist 11/02/24 1306 MR#: [id number] Acct: [id number] Name: AIMEE DUCKWORTH Rep #:[id number] : [...] % (Auto) 54.1, Lymph % (Auto) 24.9, [place]% (Auto) 18.0 H, Eos % (Auto) 2.1, [...] Multi Select Codes Visit Charges Visit Charges: 05738 Init Hosp L3 Hospitalists' Procedures Procedures: 44512 Advncd Care Plan 30 Min 11/02/24 1311 <Electronically signed by Román Sandoval MD> Cosigner Signature (if applicable): CC: Dr. Román Sandoval MD; Dr. Kamron Erickson MD~ Signed [facility] Work Phone: 1(325) 793-750204-01-2025 Discharge summary Author Tramainedelia Tovar [facility] Note Date/Time November 02, 2024 12:5 7pm [facility] Medical Records Department [address] [place] [address] Emergency Department Summary 11/02/24 MR#: [id number] Acct: [id number] Name: AIMEE DUCKWORTH Rep #:[id number] : 1990 34 From: Tramaine Tovar MD PCP: Dr. 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 Patient has attempted suicide in [facility]. Patient has been hospitalized for suicidal ideation/attempt. [...] % (Auto) 54.1 Lymph % (Auto) 24.9 [place] % (Auto) 18.0 H Eos % (Auto) [...] which may be due to the trazodone. [place] interval is under 58 ms. Cures duration 110 ms. QT duration 458 ms. Metz is normal.) Management Discussion w/another healthcare provider: Hospitalist (Hospitalist was paged at [phone] for admission. Case was discussed with Dr. Serrato who accepted patient. Full admit ICU) Critical Care Time Critical Care Time: Yes Critical care time (excluding procedures): 30-74 minutes (33), Including time spent: (History, physical, documentation, independent rotation laboratory results and EKG), Discussing w/Patient &/or Family/Cork Compounder, Discussing w/Consultants and Arranging Admission or Transfer Discharge Plan Dx/Rx/DC Orders Clinical Impression: Intentional overdose, Prolonged QT interval, Intentional overdose of trazodone,Somnolence, Depression, major Disposition Disposition: Acute Care Hospital [facility] What to do if you have Problems For any increased pain, shortness of breath, bleeding, nausea or vomiting, chestpain, or any unexpected problems, contact your Primary Care Provider. Call [facility] ([phone]) or report to the closest Emergency Room. Call 911 if necessary. 11/02/24 1257 <Electronically signed by Tramaine Tovar MD> Cosigner Signature (if applicable): CC: Dr. Kamron Erickson MD ~ Signed [facility] Work Phone: 1(458) 296-730304-01-2025 Evaluation note* Diagnosis Onset Date Resolution Status Admit Date Intentional overdose of trazodone acute November 02, 2024 12:55pm Prolonged QT interval acute Nov 12:55pm [facility] Work Phone: 1(205) 456-655404-01-2025 History and physical note [facility] Medical Records Department [address] [place] [address] H&P Exam - Hospitalist 11/02/24 1306 MR#: [id number] Acct: [id number] Name: AIMEE DUCKWORTH Rep #:[id number] : [...] % (Auto) 54.1, Lymph % (Auto) 24.9, [place]% (Auto) 18.0 H, Eos % (Auto) 2.1, [...] Multi Select Codes Visit Charges Visit Charges: 57170 Init Hosp L3 Hospitalists' Procedures Procedures: 22083 Advncd Care Plan 30 Min 11/02/24 1311 Cosigner Signature (if applicable): CC: Dr. Román Sandoval MD; Dr. Kamron Erickson MD~ Signed [facility]04-01-2025 Discharge summary [facility] Medical Records Department [address] [place] [address] Emergency Department Summary 11/02/24 MR#: [id number] Acct: [id number] Name: AIMEE DUCKWORTH Rep #:[id number] : 1990 34 From: Tramaine Tovar MD PCP: Dr. 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 Patient has attempted suicide in [facility]. Patient has been hospitalized forsuicidal ideation/attempt. Patient [...] % (Auto) 54.1 Lymph % (Auto) 24.9 [place] % (Auto) 18.0 H Eos % (Auto) [...] which may be due to the trazodone. AZ interval is under 58 ms. Cures duration 110 ms. QT duration 458 ms. Metz is normal.) Management Discussion w/another healthcare provider: Hospitalist (Hospitalist was paged at 1252 for admission.Case was discussed with Dr. Serrato who accepted patient. Full admit ICU) Critical Care Time Critical Care Time: Yes Critical care time (excluding procedures): 30-74 minutes (33), Including time spent: (History, physical, documentation, independent rotation laboratory results and EKG), Discussing w/Patient &/orFamily/Cork Compounder, Discussing w/Consultants and Arranging Admission or Transfer Discharge Plan Dx/Rx/DC Orders Clinical Impression: Intentional overdose, Prolonged QT interval, Intentional overdose of trazodone,Somnolence, Depression, major Disposition Disposition: Acute Care Hospital [facility] What to do if you have Problems For any increased pain, shortness of breath, bleeding, nausea or vomiting, chestpain, or any unexpected problems, contact your Primary Care Provider. Call [facility] ([phone]) or report tothe closest Emergency Room. Call 911 if necessary. 11/02/24 1257 Cosigner Signature (if applicable): CC: Dr. Kamron Erickson MD ~ Signed [facility]09-10-2023 Discharge summary Author Gustavo Garcia [facility] April 13, 2023 7:22am Note Date/Time April 13, 2023 4:18am [facility] Medical Records Department [address] [place] [address] Emergency Department Summary 04/13/23 MR#: [id number] Acct: [id number] Name: AIMEE DUCKWORTH Rep #:[id number] : [...] episode. He is on any blood thinners. [facility] Medical History Asthma Migraines Home Medications [...] 82.3 H Lymph % (Auto) 11.2 L [place] % (Auto) 4.5 Eos % (Auto) 1.3 [...] 7:15 EDT Reading Location ID and State: [facility] / [place] , Service support , Discharge Plan Triage [...] problems, contact your Primary Care Provider. Call [facility] ([phone]) or report to the closest Emergency Room. Call 911 if necessary. 04/13/23 0722 <Electronically signed by Gustavo Garcia DO> Cosigner Signature (if applicable): CC: Dr. Kamron Erickson MD ~ Signed [facility] Work Phone: Discharge summary Author Tramaine Tovar [facility] Note Date/Time November 02, 2024 12:5 7pm [facility] Medical Records Department [address] [place] [address] Emergency Department Summary 11/02/24 MR#: [id number] Acct: [id number] Name: AIMEE DUCKWORTH Rep #:[id number] : 1990 34 From: Tramaine Tovar MD PCP: Dr. 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 Patient has attempted suicide in [facility]. Patient has been hospitalized for suicidal ideation/attempt. [...] % (Auto) 54.1 Lymph % (Auto) 24.9 [place] % (Auto) 18.0 H Eos % (Auto) [...] which may be due to the trazodone. AZ interval is under 58 ms. Cures duration 110 ms. QT duration 458 ms. Metz is normal.) Management Discussion w/another healthcare provider: Hospitalist (Hospitalist was paged at 1252 for admission. Case was discussed with Dr. Serrato who accepted patient. Full admit ICU) Critical Care Time Critical Care Time: Yes Critical care time (excluding procedures): 30-74 minutes (33), Including time spent: (History, physical, documentation, independent rotation laboratory results and EKG), Discussing w/Patient &/or Family/Cork Compounder, Discussing w/Consultants and Arranging Admission or Transfer Discharge Plan Dx/Rx/DC Orders Clinical Impression: Intentional overdose, Prolonged QT interval, Intentional overdose of trazodone,Somnolence, Depression, major Disposition Disposition: Acute Care Hospital [facility] What to do if you have Problems For any increased pain, shortness of breath, bleeding, nausea or vomiting, chestpain, or any unexpected problems, contact your Primary Care Provider. Call [facility] ([phone]) or report to the closest Emergency Room. Call 911 if necessary. 11/02/24 1257 <Electronically signed by Tramaine Tovar MD> Cosigner Signature (if applicable): CC: Dr. Kamron Erickson MD ~ Signed [facility] Work Phone: Discharge summary Author Diomedes York [facility] Note Date/Time April 21, 2025 3:29am [facility] Medical Records Department [address] [place] [address] Emergency Department Summary 04/21/25 MR#: [id number] Acct: [id number] Name: AIMEE DUCKWORTH Rep #:[id number] : [...] secondary to this he presents for evaluation. [facility] Medical History Spinal stenosis Schizophrenia Depression [...] 81.1 H Lymph % (Auto) 12.5 L [place] % (Auto) 5.4 Eos % (Auto) 0.2 [...] pneumatosis coli. Mild diffuse spondylosis. Reading Location: [place] [address] Discharge Plan Triage Chief Complaint: Nausea/Vomiting ED Provider: iDomedes York Dx/Rx/DC Orders Clinical Impression: Nausea vomiting [...] Referrals: Kamron Erickson MD [Primary Care Provider, [facility]] Activity Restrictions/Additional Instructions: Your CT scan showed irritation to your stomach and intestines consistent with gastroenteritis. This is a viral stomach infection that will last anywhere from1 to 10 days with the average being 3 days. Please keep yourself well-hydrated and take the prescribed medication as directed to help control symptoms. Returnto the ER should you have any further concerns Print Language: Mongolian Disposition Disposition: Home, Self Care What to do if you have Problems For any increased pain, shortness of breath, bleeding, nausea or vomiting, chestpain, or any unexpected problems, contact your Primary Care Provider. Call [facility] ([phone]) or report to the closest Emergency Room. Call 911 if necessary. 04/21/25 0329 <Electronically signed by Diomedes York DO> Cosigner Signature (if applicable): CC: Dr. Kamron Erickson MD ~ Signed [facility] Work Phone: Discharge summary Author Rodriguez Beavers [facility] Note Date/Time April 22, 2025 11:55am [facility] Medical Records Department [address] [place] [address] Emergency Department Summary 04/22/25 MR#: [id number] Acct: [id number] Name: AIMEE DUCKWORTH Rep #:[id number] : 1990 34 From: Rodriguez Murrell PCP: Dr. Kamron Erickson MD Status:DEP ER Location: ED HPI History of Present Illness Chief Complaint: [facility] Medical History Spinal stenosis Schizophrenia Depression [...] 113 Pulse Ox 97 Oxygen Delivery Method [facility] Narrative Medical decision making [...] reviewed, Vital signs reviewed Constitutional: please see [facility] HENT: MMM Eyes: Pupils equal round and [...] History obtained from others: Mother Consults: none [facility] Narrative: The patient was initially hypertensive [...] Discharge home This note was generated with in3Dgallery dictation software. It may contain incorrectwords, spelling, [...] (Auto) 71.5 H Lymph % (Auto) 19.5 [place] % (Auto) 7.8 Eos % (Auto) 0.3 [...] Clarity Clear Urine pH 6.5 Ur Specific Mobile 1.015 Urine Protein 100 H Urine Glucose [...] further outpatient evaluation and management. Print Language: Mongolian Disposition Disposition: Home, Self Care Discharge Date/Time: 04/22/25 11:55 What to do if you have Problems For any increased pain, shortness of breath, bleeding, nausea or vomiting, chestpain, or any unexpected problems, contact your Primary Care Provider. Call [facility] ([phone]) or report to the closest Emergency Room. Call 911 if necessary. 04/22/25 1538 <Electronically signed by Rodriguez Beavers DO> Cosigner Signature (if applicable): CC: Dr. Kamron Erickson MD ~ Signed [facility] Work Phone: Evaluation noteNo assessment information available [facility] Work Phone: Evaluation note* Diagnosis Onset Date Resolution Status Admit Date Intentional overdose of trazodone acute November 02, 2024 12:55pm Prolonged QT interval acute Apr 2024 12:55pm [facility] Work Phone: History and physical note Author Román Sandoval [facility] Note Date/Time November 02, 2024 1:11 pm [facility] Medical Records Department [address] [place] [address] H&P Exam - Hospitalist 11/02/24 1306 MR#: [id number] Acct: [id number] Name: AIMEE DUCKWORTH Rep #:[id number] : [...] palmitate 234 mg/1.5 234 mg IM Q30D 04/01 /25 03/08/25 History mL intramuscular syringe (Invega Sustenna) trazodone [...] % (Auto) 54.1, Lymph % (Auto) 24.9, [place]% (Auto) 18.0 H, Eos % (Auto) 2.1, [...] Multi Select Codes Visit Charges Visit Charges: 10787 Init Hosp L3 Hospitalists' Procedures Procedures: 48270 Advncd Care Plan 30 Min 11/02/24 1311 <Electronically signed by Román Sandoval MD> Cosigner Signature (if applicable): CC: Dr. Román Sandoval MD; Dr. Kamron Erickson MD~ Signed [facility] Work Phone: Hospital Discharge instructionsAdditional Instructions [...] (Dr. Colbert) for further outpatient evaluation and management.[facility] Work Phone: Reason for referral (narrative)No reason for referral information availableWooThe [facility] Work Phone: Summary Purpose Family History No Family History Records FoundNo Family History Records FoundNo Family History Records Found Advance Directives No Advanced Directives Records Found Advance Directive Response Recorded Date/ Time Living Will No December 04, 2018 12 :33pm Power of Continuous Loft Operator No December 04, 2018 12:33pm Advance Directive Response Recorded Date/ Time Living Will No December 31, 2021 1 :58am Power of Continuous Loft Operator No December 31, 2021 1:58am Advance Directive Response Recorded Date/ Time Living Will No January 30, 2022 3:53pm Power of Continuous Loft Operator No January 30 3:53pm Advance Directive Response Recorded Date/ Time Living Will No May 29 9:05pm Power of Continuous Loft Operator No May 29, 2022 9:05pm Advance Directive Response Recorded Date/ Time Living Will No April 13, 2023 4:10am Power of Continuous Loft Operator No April 4:10am Advance Directive Response Recorded Date/ Time Living Will No November 02, 2024 11:27am Do you have a Healthcare Power of Continuous Loft Operator? No November 02, 2024 11:27am Living Will No August 03, 024 2:14pm Do you have a Healthcare Power of Continuous Loft Operator? No August 03, 2024 2:14pm Advance Directive Response Recorded Date/ Time Living Will No November 02, 2024 1:54pm Do you have a Healthcare Power of Continuous Loft Operator? No November 02, 2024 1:54pm Living Will No August 03, 024 2:14pm Do you have a Healthcare Power of Continuous Loft Operator? No August 03, 2024 2:14pm Advance Directive Response Recorded Date/ Time Do you have a Healthcare Power of Continuous Loft Operator? No April 21, 2025 2:04am Advance Directive Response Recorded Date/ Time Do you have a Healthcare Power of Continuous Loft Operator? No April 21, 2025 2:04am Do you have a Healthcare Power of Continuous Loft Operator? No April 22, 2025 7:38am Chief Complaint [...] DATE CREATED AUTHOR 07/12/2018 [facility] DATE CREATED AUTHOR AUTHOR'S ORGANIZ ATION 05/13/2023 [facility] DATE CREATED AUTHOR AUTHOR'S ORGANIZ ATION 06/11/2025 [facility] Goals (unrecognized section and content) Goals [...] BE BASED ON THE PRIMARY CLINICAL RECORDS. [facility]. provides no warranty or guarantee of the accuracy or completeness of information in this document.
[2025-07-20] MEDS: Lactated Ringers 1,000 ML 15 ML IV (07:36)
--- NOTE | 2025-07-20 07:45 | PRE.ANES_ITS ---
ASA Classification* ASA Classification ASA Classification: 2 Assessment & Plan Anesthesia* Anesthesia Assessment Anesthesia Assessment: Discussed sedation and/or anesthesia options, risks, benefits, and alternatives with patient/parents/legal guardian/POA. Questions invited. The patient/parents/legal guardian/POA seems to understand and agrees to proceed with anesthesia plan. Reviewed the physical assessment, medical history, allergy history and patient home medications list prior to surgery/procedure/anesthetic and documented any changes. Performed airway and anesthesia risk assessments. Anesthesia Type Anesthesia Type: MAC History Source History Obtained from:: Patient and Chart Anesthesia Focused Assessment* Temperature: 97.8 F Pulse Rate: 86 Blood Pressure: 132/92 Respiratory Rate: 16 Pulse Ox: 98 Oxygen Delivery Method: Room Air Airway Assessment Mouth opens: >3 cm Mallampati Score: IV Teeth Condition: Intact Neck Range of motion (ROM): Limited ROM (Slight Decrease) Labs Anesthesia Preop lab: CBC WBC, (4.4-11.0) 26.8 K/mm3 H 06/30/25, 18:07 RBC, (4.6-6.2) 5.21 M/mm3 06/30/25, 18:07 Hgb, (13.0-16.5) 16.3 g/dL 06/30/25, 18:07 Hct, (40-54) 48.4 % 06/30/25, 18:07 Plt Count, (150-450) 305 K/mm3 06/30/25, 18:07 CHEMISTRY Potassium, (3.3-5.1) 3.6 mmol/L 06/30/25, 18:07 Sodium, (133-145) 141 mmol/L 06/30/25, 18:07 Magnesium, (1.5-2.2) 2.4 mg/dL H 11/03/24, 03:30 Phosphorus, (2.7-4.5) 3.5 mg/dL 11/03/24, 03:30 BUN, (4-19) 10 mg/dL 06/30/25, 18:07 Creatinine, (0.70-1.20) 1.19 mg/dL 06/30/25, 18:07 Glucose, (70-99) 142 mg/dL H 06/30/25, 18:07 TSH, (0.358-3.74) 1.72 uIU/mL 03/08/20, 09:37 COAG PT, (11.7-14.9) 13.2 SECONDS 05/31/25, 01:10 Pre-Assessment Diagnosis/Proposed Procedure Planned Operative Procedure(s): EGD Anesthesia History Anesthesia History - supervisor cellars: Anesthesia History - supervisor cellars Hx Hospitalization Yes: [facility], [facility] 07/19/25 10:22 ADM Any Problems With Anesthesia No 07/19/25 10:22 Cholinesterase deficiency No 07/19/25 10:22 You/Your Family Experience No 07/19/25 10:22 fever (hyperthermia) with Relationship Recent Exposure to Contagious No 07/20/25 07:33 Disease Does patient have nerve No 07/19/25 10:22 stimulator Patient instructed to have device shut off --Does patient have Pacemaker No 07/20/25 07:33 or ICD? When Was Last Pacemaker Check QUESTION #4 FULL TEXT: You/Your Family Experience fever (hyperthermia) with Anesthesia Last Oral Intake Last Oral intake: Last Oral Intake NPO since 00:00 07/20/25 07:33 Meds taken in AM with sips of Yes 07/20/25 07:33 water? Meds patient instructed to HALOPERIDOL 07/20/25 07:33 take am of surgery ESCITALOPRAM BUPROPRION Any additional information?: Yes Meds taken in AM with sips of water?: Yes PONV PONV - supervisor cellars: PONV - supervisor cellars Female No 07/19/25 10:22 HX of Motion Sickness No 07/19/25 10:22 HX of N/V After Surgery No 07/19/25 10:22 Non-Smoker No 07/19/25 10:22 Duration of Surgery greater No 07/19/25 10:22 than 60 minutes Number of Risk Factors PONV Score Height & Weight Height & Weight: Anesthesia: Height & Weight Height 6 ft 07/20/25 07:33 Weight: 121 kg 07/20/25 07:33 Body Mass Index (BMI) 36.1 07/20/25 07:33 Respiratory Assessment Respiratory Assessment - supervisor cellars: Respiratory Tract Infection Hx - supervisor cellars Hx Respiratory Tract Infection No 07/19/25 10:22 STOP Sleep Apnea STOP Sleep Apnea - supervisor cellars: STOP Sleep Apnea - supervisor cellars Hx Hypertension No 07/19/25 10:22 Hx Sleep Apnea No 07/19/25 10:22 CPAP BIPAP Do you snore loudly (louder No 07/19/25 10:22 than talking or can be heard Do you often feel tired/ No 07/19/25 10:22 fatigued/ sleepy during daytime? Has anyone observed you stop No 07/19/25 10:22 breathing during sleep? STOP Results Negative 07/19/25 10:22 QUESTION #5 FULL TEXT : Do you snore loudly (louder than talking or can be heard through closed doors)? Tobacco Use History Tobacco Use History - supervisor cellars: Tobacco Use History - supervisor cellars Tobacco Use Smoking Status Current every day smoker 07/19/25 10:22 Hx Tobacco Use No 07/19/25 10:22 Years Smoking Packs Smoked per Day Smoking Cessation Date was within the last 15 years Hx Smoking Cessation Date Hx Smoking Cessation Counseling Any additional information?: Yes Smoking Status: Current every day smoker (Patient smoked today.) Hematologic Medial History Hematologic Hx - supervisor cellars: Hematologic Medical Hx - behavioral consultant Hx of Blood Transfusion No 07/19/25 10:22 Hx of Transfusion in last 3 No 07/19/25 10:22 Months Date of Last Transfusion (if within last 3 months) Ever experience any problems No 07/19/25 10:22 with transfusion(s)? Specify any problems Hx of Preganancy in last 3 N/A 07/19/25 10:22 Months Nurse Filling Out Transfusion VCHRISTIN 07/19/25 10:22 & Questions: Date: 07/19/25 07/19/25 10:22 Time: 10:24 07/19/25 10:22 Patient unable to answer at this time (ie. confused, unrespo /Reproduction History /Reproductive History - supervisor cellars: /Reproductive Hx- supervisor cellars Hx Now No 07/19/25 10:22 Gestational Age (in weeks): EDC: Hx Hx Para Hx Section SAB No 07/19/25 10:22 Does the father of the baby or his family experience fever w Father of the baby Malignant Hypertension history comment Active Medications Active Medications: Current Medications Generic Name Dose Route Start Last Admin Trade Name Freq PRN Reason Stop Dose Admin Lactated Ringer's 1,000 mls @ 15 mls/hr 07/20/25 07:30 07/20/25 07:36 IV 15 mls/hr .Q48H RYAN Administration PFSH Medical History Wears glasses Marijuana use Back pain Vapes nicotine containing substance Spinal stenosis Schizophrenia Depression Anxiety Smoker Schizophrenia Migraines Asthma Home Medications ?Medication ?Instructions ?Recorded ?Last Taken ?Type divalproex 500 mg tablet,delayed 1,500 mg PO QHS 06/0211/02/24 History release albuterol sulfate 90 mcg/actuation 1 - 2 puff inhalati on Q4H PRN cough 11/02/24 Unknown History aerosol inhaler escitalopram oxalate 20 mg tablet 20 mg PO DAILY 11/0207/20/25 History haloperidol 5 mg tablet 5 mg PO BID 04/21/25 5 History hydroxyzine HCl 50 mg tablet 50 mg PO TID PRN anxiety 04/21/25 Unknown History bupropion HCl 100 mg tablet 100 mg PO DAILY 05/31/25 1 09/20/24 History tizanidine 4 mg tablet 8 mg PO Q8H PRN PRN low back pain 05/31/25 Unknown History ondansetron 4 mg disintegrating 4 mg PO Q8H PRN PRN Na usea #10 tabs 06/30/25 Unknown Rx tablet scopolamine base 1 mg over 3 days 1 patch transdermal Q3D PRN nausea 07/04/25 Unknown Rx transdermal patch 1 month #10 ea Allergy/AdvReac Type Severity Reaction Status Date / Time Sulfa (Sulfonamide Allergy Unknown Verified 07/20/25 07:32 Antibiotics) sulfisoxazole (From Allergy Hives Verified 07/20/25 07:32 Gantrisin) Surgical History Hx of wisdom tooth extraction Social History household members: family Smoking Status: Current every day smoker tobacco type: cigarettes and e- cigarettes substance use type: marijuana Review of Systems (Anesthesia) ROS Narrative System reviewed and no additional complaints, except as documented. Physical Exam Resp clear to auscultation bilaterally
--- NOTE | 2025-07-20 08:30 | EGD_PTH ---
PATIENT: AIMEE DUCKWORTH LOC: EN U#:[id number] AGE/SX: 34/M ROOM: RE07/20/[address]: Dr. Owen Colbert DO : 1990 BED: DIS: 07/20/2025 SPEC #: [id number] RECD: 07/20/25 10:15 STATUS: ERIC JOSH #: [id number] JOSE: 07/20/25 08:[address]: Owen Colbert DEPT: SURGICAL PATHOLOGY RECD BY: Willis Isaac ENTERED: 07/20/25 15:38 SP TYPE: EGD BIOPSY ERICKSON DR: Dr. Yovani Erickson MD Tissues: A - Esophagus, NOS B - Gastric mucous membrane C - Duodenum, NOS Procedures: Surgery Specimen Level IV HEADER OPERATION: EGD, biopsy PRE-OP DIAGNOSIS: Schizophrenia, dehydration, leukocytosis, THC use disorder, mild abuse TISSUE SUBMITTED: A- Distal esophagus biopsy, B- Gastric body biopsy, C- Duodenum biopsy MICROSCOPIC DIAGNOSIS A. Esophagus, distal, biopsy: Squamous mucosa with reactive changes Columnar mucosa with goblet cell metaplasia - see note. Negative for dysplasia. Note: The diagnosis depends on the location of the biopsy and the extent of the mucosal irregularity. If the biopsy originates from the tubular esophagus and the mucosal irregularity extends at least 1 cm above the top of the gastric folds, this represents López mucosa. If the biopsy originates from the gastric cardia and/or the mucosal irregularity is less than 1 cm in extent, this represents intestinal metaplasia. B. Stomach, body, biopsy: Oxyntic mucosa with mild foveolar hyperplasia. Negative for Helicobacter-like organisms (H&E). C. Small intestine, duodenum, biopsy: Normal villous architecture with gastric mucin cell metaplasia, suggestive of peptic injury. Negative for increased intraepithelial lymphocytes. MICROSCOPIC DESCRIPTION Slides are reviewed. GROSS DESCRIPTION A. Received in fixative is one container labeled with the patient's name and designated Distal esophagus biopsy. The specimen consists of multiple irregular fragments of hernandez tissue that in aggregate measure 1.5 x 0.6 x 0.1 cm. The specimen is totally submitted in one cassette. B. Received in fixative is one container labeled with the patient's name and designated Gastric body biopsy. The specimen consists of two irregular fragments of hernandez tissue that measure 0.4 and 0.8 cm. The specimen is totally submitted in one cassette. C. Received in fixative is one container labeled with the patient's name and designated Duodenum biopsy. The specimen consists of three irregular fragments of hernandez tissue that measure 0.2 to 0.4cm. The specimen is totally submitted in one cassette. [facility] 07/20/2025 CPT:02365d3
--- NOTE | 2025-07-20 08:49 | PCM.HP.STD ---
HPI - General General Date of Admission: 07/20/25 Date of Service: 07/20/25 Chief Complaint: Nausea and vomiting HPI Narrative AIMEE DUCKWORTH is a 34 M who presents [Chief Complaint: Vomiting Details: AIMEE DUCKWORTH is a 34 M who presents to the office today for hospital follow up. Presents to the emergency room with approximately one month of persistent nausea and vomiting. Describes baseline nausea as 6?7 out of 10, present upon waking and at bedtime, with episodes escalating to dry heaving, abdominal pain, and vomiting. Thanksgiving food exposure (turkey cooking/inhalation) appeared to trigger worsening symptoms. Reports decreased oral intake, aversion to food due to nausea, and a small amount of weight loss. Has been to the ER multiple times for these symptoms before Thanksgiving as well. Mentions prior intravenous (IV) medications that helped nausea: Thorazine (chlorpromazine) and Ativan (lorazepam). States possession of a gallbladder and no prior gallbladder testing. Notes prior evaluation ?quite a few years ago? for ulcers and being told stomach cancer was a possibility, but it was never followed up. Discussion in the visit includes prior emergency room findings of consistently elevated white blood cell counts and a computed tomography (CT) scan of the abdomen performed previously. - Recurrent nausea, abdominal pain, vomiting (approximately 1 month) - Prior emergency room visits for dry heaves and vomiting (multiple) - [Unclear] History of possible ulcers evaluated years ago - [Unclear] Told stomach cancer was a possibility years ago but never confirmed or followed up - Prior CT scan of abdomen (performed during ER visits) - Reports being told white blood cell counts were repeatedly high during prior ER visits [facility] Medical History Wears glasses Marijuana use Back pain Vapes nicotine containing substance Spinal stenosis Schizophrenia Depression Anxiety Smoker Schizophrenia Migraines Asthma Home Medications ?Medication ?Instructions ?Recorded ?Last Taken ?Type divalproex 500 mg tablet,delayed 1,500 mg PO QHS 06/02/24 11/02/24 History release albuterol sulfate 90 mcg/actuation 1 - 2 puff inhalation Q4H PRN cough 11/02/24 Unknown History aerosol inhaler escitalopram oxalate 20 mg tablet 20 mg PO DAILY 11/02/24 07/20/25 History haloperidol 5 mg tablet 5 mg PO BID 04/21/25 07/20/25 History hydroxyzine HCl 50 mg tablet 50 mg PO TID PRN anxiety 04/21/25 Unknown History bupropion HCl 100 mg tablet 100 mg PO DAILY 05/31/25 07/20/25 History tizanidine 4 mg tablet 8 mg PO Q8H PRN PRN low back pain 05/31/25 Unknown History ondansetron 4 mg disintegrating 4 mg PO Q8H PRN PRN Nausea #10 tabs 06/30/25 Unknown Rx tablet scopolamine base 1 mg over 3 days 1 patch transdermal Q3D PRN nausea 07/04/25 Unknown Rx transdermal patch 1 month #10 ea Allergy/AdvReac Type Severity Reaction Status Date / Time Sulfa (Sulfonamide Allergy Unknown Verified 07/20/25 07:32 Antibiotics) sulfisoxazole (From Allergy Hives Verified 07/20/25 07:32 Gantrisin) Surgical History Hx of wisdom tooth extraction Social History household members: family Smoking Status: Current every day smoker (Patient smoked today.) tobacco type: cigarettes and e-cigarettes substance use type: marijuana ROS Constitutional Constitutional: Denies fatigue, fever(s), poor appetite, weight gain or weight loss Gastrointestinal Gastrointestinal: Denies belching, bloating, change in bowel habits, change in stool character, chewing difficulty, coffee ground emesis, constipation, cramping, diarrhea, dyspepsia, dysphagia, early satiety, excessive flatus, fecal incontinence, heartburn, hematemesis, hematochezia, hemorrhoids, loose stools, melena, nausea, odynophagia, rectal bleeding, tenesmus, vomiting or weight changes Vital Signs Vital Signs Vital Signs: 07/20/25 07:33 07/20/25 07:33 07/20/25 07:33 Temperature 97.8 F Temperature Source Temporal Pulse Rate 86 Respiratory Rate 16 Respiratory Pattern Normal Blood Pressure 132/92 H Blood Pressure Mean 105 Blood Pressure Source Monitor Blood Pressure Position Semi-Fowlers Blood Pressure Location Right Arm Baseline BP 132/92 Pulse Ox 98 Oxygen Delivery Method Room Air 07/20/25 07:52 Temperature 97.8 F Temperature Source Pulse Rate 86 Respiratory Rate 16 Respiratory Pattern Blood Pressure 132/92 H Blood Pressure Mean Blood Pressure Source Blood Pressure Position Blood Pressure Location Baseline BP Pulse Ox 98 Oxygen Delivery Method Room Air Weight Weight: 266 lb 12.149 oz Body Mass Index (BMI) 36.1 Physical Exam Const alert, oriented x3, no apparent distress and healthy appearing General Appearance: cooperative GI normal to inspection, nondistended, normoactive bowel sounds, soft to palpation, non-tender and non-distended Percussion: normal to percussion Rectal Exam: deferred Assessment & Plan Assessment/Plan (1) Schizophrenia: (2) Dehydration: (3) Leukocytosis: (4) Tetrahydrocannabinol (THC) use disorder, mild, abuse: (5) Intractable nausea and vomiting: PLAN: Assessment and Plan Assessment and Plan (1) Intractable nausea and vomiting: Status: Acute (2) Moderate tetrahydrocannabinol (THC) dependence: Status: Acute Plan: Persistent nausea and vomiting : Persistent baseline nausea (6?7/10) with episodes of dry heaving and vomiting; decreased oral intake; prior IV antiemetics (Thorazine and Ativan) provided relief. - Plan endoscopic evaluation (scope) with biopsies of the esophagus, stomach, and small bowel to determine etiology. - Order an eating test to assess gastric function during and after food intake. - Provide a patch to reduce baseline nausea to approximately 3 (until oral medications are more tolerable). - Send medications to the pharmacy (nurse to set up). Abdominal pain : Abdominal pain occurring with episodes of worsened nausea/vomiting. - Prescribe medication for pain (to address baseline pain as part of breaking the cycle). Weight loss : Reports reduced intake and a small amount of weight loss associated with nausea. [Unclear] Elevated white blood cell count : Reportedly elevated white blood cell counts across multiple ER visits. Follow-up : Future diagnostic and therapeutic steps outlined. - Nurse to coordinate setup and scheduling. - Consider evaluation of the gallbladder as part of the workup. ]
--- NOTE | 2025-07-20 09:24 | PCM.POST.ANE ---
Anesthesia: Postop Eval I Current Vital Signs Temperature: 97.5 F Pulse Rate: 107 Blood Pressure: 94/69 Respiratory Rate: 18 Pulse Ox: 94 Oxygen Delivery Method: Room Air Assessment Airway patent: Yes Spontaneous unlabored respirations: Yes Mental status: Asleep nausea: No Vomiting: No Anesthesia Complication: No Fluid Hydration Crystalloid volume administer (ml): 400 Total IV fluid infused: 400 Progress Note Anesthesia document: Postop Eval 1 completed: Yes
--- NOTE | 2025-07-20 09:26 | OP.EGD_ITS ---
Patient Name: Al Masters Procedure Date: 07/20/2025 8:54 AM Date of : 1990 Age: 34 Procedure: Upper GI endoscopy Indications: Epigastric abdominal pain, Abdominal pain in the right upper quadrant, Abdominal pain in the left upper quadrant, Functional Dyspepsia, Heartburn, Suspected esophageal reflux Providers: Owen Colbert DO Referring MD: Yovani Erickson Medicines: Monitored Anesthesia Care Patient Profile: This is a 34 year old male. Refer to note in patient chart for documentation of history and physical. Patient has symptoms of chronic epigastric abdominal pain, chronic heartburn and chronic nausea. Complications: No immediate complications. Procedure: Pre-Anesthesia Assessment: - Prior to the procedure, a History and Physical was performed, and patient medications and allergies were reviewed. The patient is competent. The risks and benefits of the procedure and the sedation options and risks were discussed with the patient. All questions were answered and informed consent was obtained. Patient identification and proposed procedure were verified by the physician in the pre-procedure area. Mental Status Examination: alert and oriented. Airway Examination: normal oropharyngeal airway and neck mobility. Respiratory Examination: clear to auscultation. CV Examination: normal. Prophylactic Antibiotics: The patient does not require prophylactic antibiotics. Prior Anticoagulants: The patient has taken no anticoagulant or antiplatelet agents. ASA Grade Assessment: II - A patient with mild systemic disease. After reviewing the risks and benefits, the patient was deemed in satisfactory condition to undergo the procedure. The anesthesia plan was to use monitored anesthesia care (MAC). Immediately prior to administration of medications, the patient was re-assessed for adequacy to receive sedatives. The heart rate, respiratory rate, oxygen saturations, blood pressure, adequacy of pulmonary ventilation, and response to care were monitored throughout the procedure. The physical status of the patient was re-assessed after the procedure. After obtaining informed consent, the endoscope was passed under direct vision. Throughout the procedure, the patient's blood pressure, pulse, and oxygen saturations were monitored continuously. The Endoscope was introduced through the mouth, and advanced to the third part of the duodenum. Small bowel enteroscopy was deemed necessary. The upper GI endoscopy was accomplished without difficulty. The patient tolerated the procedure well. Scope In: 9:07:01 AM Scope Out: 9:14:00 AM Total Procedure Duration Time 0 hours 6 minutes 59 seconds Findings: There were esophageal mucosal changes consistent with long-segment López's esophagus present in the middle third of the esophagus and in the lower third of the esophagus. The maximum longitudinal extent of these mucosal changes was 8 cm in length. Mucosa was biopsied with a cold forceps for histology in a targeted manner at intervals of 1 cm in the middle third of the esophagus and in the lower third of the esophagus. One specimen bottle was sent to pathology. Verification of patient identification for the specimen was done. Estimated blood loss was minimal. A medium-sized hiatal hernia was present. Patchy mild inflammation characterized by congestion (edema), erosions and erythema was found in the gastric body. Biopsies were taken with a cold forceps for histology. Verification of patient identification for the specimen was done. Estimated blood loss was minimal. Biopsies were taken with a cold forceps for Helicobacter pylori testing. Verification of patient identification for the specimen was done. Estimated blood loss was minimal. Diffuse moderate inflammation characterized by congestion (edema), erythema and friability was found in the entire duodenum. Biopsies were taken with a cold forceps for histology. Verification of patient identification for the specimen was done. Estimated blood loss was minimal. Impression: - Esophageal mucosal changes consistent with long-segment López's esophagus. Biopsied. - Medium-sized hiatal hernia. - Chronic gastritis. Biopsied. - Chronic duodenitis. Biopsied. Recommendation: - Discharge patient to home. - Resume previous diet. - Continue present medications. - Omeprazole 40 mg p.o. twice daily Procedure Code(s): --- Professional --- 63980, Small intestinal endoscopy, enteroscopy beyond second portion of duodenum, not including ileum; with biopsy, single or multiple CPT copyright 2021 [employer]. All rights reserved. The codes documented in this report are preliminary and upon stock trader review may be revised to meet current compliance requirements. Owen Colbert DO 07/20/2025 9:25:50 AM This report has been signed electronically. Number of Addenda: 0 Note Initiated On: 07/20/2025 8:54 AM
--- NOTE | 2025-07-20 09:26 | OP.PROVAT_ITS ---
07/20/2025 Yovani Erickson [address] [place] [address] Re : Upper GI endoscopy procedure for Al Masters Dear Dr. Erickson This procedure was performed on Sunday, July 20, 2025. My impressions and recommendations are as follows: Impressions : - Esophageal mucosal changes consistent with long-segment López's esophagus. Biopsied. - Medium-sized hiatal hernia. - Chronic gastritis. Biopsied. - Chronic duodenitis. Biopsied. Recommendations : - Discharge patient to home. - Resume previous diet. - Continue present medications. - Omeprazole 40 mg p.o. twice daily My findings are described in the full procedure note, which is enclosed. If I can be of further assistance, please feel free to contact me at . Sincerely, Owen Colbert, 07/20/2025 9:25:50 AM This report has been signed electronically.
--- NOTE | 2025-07-20 21:52 | PCM.POSTANE2 ---
Anesthesia Postop Eval I Sum Postop Eval Completion status Anesthesia document: Postop Eval 1 completed: Yes Anesthesia Postop Eval I Summary Anesthesia Postop Eval I Summary: Anesthesia Postop Eval I: Assessment Summary Airway patent Yes 07/20/25 09:25 [email or web address] Spontaneous unlabored Yes 07/20/25 09:25 [email or web address] respirations Mental status Asleep 07/20/25 09:25 [email or web address] nausea No 07/20/25 09:25 [email or web address] Vomiting No 07/20/25 09:25 [email or web address] Anesthesia Postop Eval I: Fluid Summary Crystalloid volume administer 400 07/20/25 09:25 [email or web address] (ml) Colloids volume administered ( ml) Blood Product volume administered (ml) Total IV fluid infused 400 07/20/25 09:25 [email or web address] Anesthesia Postop Eval I: Summary Notes Anesthesia Complication No 07/20/25 09:25 [email or web address] Anesthesia Complication Comment: Post-operative progress note Anesthesia: Postop Eval II Evaluation Mental status: Awake and Calm Pain Level: 0 nausea: No Vomiting: No Complications Anesthesia Complication: No
== END 2025-07-20 09:59 | disposition home or self-care (01) ==
LOC: EN 07:20 → AC 07:22
PROVIDERS: PCP Family Medicine; Referring Provider Family Medicine; Visit Provider Internal Medicine Gastroenterology
PROC: 0DJ08ZZ Inspection of Upper Intestinal Tract, Via Natural or Artificial Opening Endoscopic (ICD-10-PCS; CPT 43235; principal; 2025-07-20 08:25)
DX: R11.2 Nausea with vomiting, unspecified (principal); F20.9 Schizophrenia, unspecified; F12.20 Cannabis dependence, uncomplicated; K44.9 Diaphragmatic hernia without obstruction or gangrene; E86.0 Dehydration; K30 Functional dyspepsia; Z79.899 Other long term (current) drug therapy; K29.50 Unspecified chronic gastritis without bleeding; F17.210 Nicotine dependence, cigarettes, uncomplicated; D72.829 Elevated white blood cell count, unspecified; K29.80 Duodenitis without bleeding; R63.4 Abnormal weight loss; F41.9 Anxiety disorder, unspecified; F17.290 Nicotine dependence, other tobacco product, uncomplicated; R10.85 Abdominal pain of multiple sites; K31.89 Other diseases of stomach and duodenum; K31.A19 Gastric intestinal metaplasia without dysplasia, unspecified site
CPT/HCPCS: 44361; 88305; J2405

== ENCOUNTER → 2025-07-22 | Outpatient (CLI) | payer MEDICARE, MEDICAID, SELFPAY ==
--- NOTE | 2025-07-22 11:28 | NM_ITS ---
PROCEDURE: GASTRIC EMPTYING STUDY 07/22/2025 REASON FOR EXAM: NAUSEA AND VOMITING TECHNIQUE: Procedure Code: NMGES Modality: NM Procedure: GASTRIC EMPTYING STUDY The patient ingested a standard meal of cooked egg whites mixed with 1.1 mCi technetium 99 M sulfur colloid in oatmeal, and water. Anterior and posterior planar images of the upper abdomen were obtained up to 60 minutes. Regions of interest were drawn, and a geometric mean was used to calculate a [id number]. FINDINGS: Of note, this is not considered a thorough gastric emptying study. Gastric emptying studies are typically done over a 4 hour. This study was done over a 1 hour period, and therefore limited in its interpretive abilities. After 30 minutes, there is approximately 29% emptying (71% retention). This is considered borderline rapid emptying, which can be seen with dumping syndrome. After 60 minutes, there is approximately 54% emptying (46% retention). NM/Gastric Emptying Study IMPRESSION: Borderline rapid emptying after 60 minutes, which can be seen with dumping syn drome. Reading Location: [id number]
== END | disposition home or self-care (01) ==
LOC: NM 11:26
PROVIDERS: PCP Family Medicine; Referring Provider Internal Medicine Gastroenterology; Visit Provider Internal Medicine Gastroenterology
DX: R11.2 Nausea with vomiting, unspecified (principal); F12.20 Cannabis dependence, uncomplicated
CPT/HCPCS: 78264; A9541